=== PATIENT | male | born 1965 | race Caucasian/White ===

== ENCOUNTER 2020-02-22 16:15 | Emergency (ER) | payer MEDICAID, SELFPAY ==
--- NOTE | 2020-02-22 | ECG_ITS ---
Test Reason : CHEST PAIN Blood Pressure : / mmHG Vent. Rate : 079 BPM Atrial Rate : 079 BPM P-R Int : 148 ms QRS Dur : 144 ms QT Int : 438 ms P-R-T Axes : 049 216 036 degrees QTc Int : 502 ms Normal sinus rhythm Possible Left atrial enlargement Right bundle branch block Inferior infarct , age undetermined Abnormal ECG No significant changes seen Referred By: Generic ED Physician Electronically Signed By:ISMAEL KATZ MD
[2020-02-22 16:19] VITALS: BP 104/57; RESP 20; TEMP 36.4; O2SAT 97; BMI 27.6
--- NOTE | 2020-02-22 16:43 | XR_ITS ---
EXAMINATION: XR CHEST CLINICAL INFORMATION: Chest pain COMPARISON: 03/01/2019 TECHNIQUE: Frontal view of the chest was obtained. FINDINGS: No significant abnormality is noted involving the heart, lungs, mediastinum, bony thorax or soft tissues. Again noted are changes of median sternotomy CABG. Degenerative changes present in the spine. XR/XR chest 1V IMPRESSION: No acute intrathoracic disease
--- NOTE | 2020-02-22 16:43 | ED_ITS ---
HPI - Chest Pain General Chief Complaint: Chest Pain Stated Complaint: chest pain Time Seen by Provider: 02/22/20 16:42 Source: patient and sign language interpreter Mode of arrival: ambulatory Limitations: no limitations History of Present Illness HPI narrative: 54 years old male with history of coronary artery disease and quadruple bypass surgery, patient also have stent. Patient presented with chest pain left-sided, described as constant started 5 hours ago, pain is localized to the left side with no radiation, associated with some difficulty breathing, and also associated with lower abdominal pain, no factor relieving the pain or worsening the pain. Related Data Previous Rx's Medication Instructions Recorded polyethylene glycol 3350 [Miralax] 17 g PO DAILY PRN #14 ea 02/22/20 Allergies Allergy/AdvReac Type Severity Reaction Status Date / Time No Known Allergies Allergy Unverified 12/30/19 19:36 [No Known Allergies*] Review of Systems Review of Systems: All other systems are reviewed and are negative Constitutional: Reports as per HPI and Reports no additional constitutional complaints Eyes: Reports as per HPI and Reports no additional eye complaints Reports system reviewed and no additional complaints, except as documented Cardiovascular: Reports as per HPI and Reports no additional cardiovascular complaints Respiratory: Reports as per HPI and Reports no additional respiratory complaints Gastrointestinal: Reports as per HPI and Reports no additional gastrointestinal complaints Genitourinary: Reports no additional female genitourinary complaints Musculoskeletal: Reports no additional musculoskeletal complaints Skin/Breast: Reports system reviewed and no additional complaints, except as docu Psychiatric: Reports no additional psychiatric complaints Endocrine: Reports no additional endocrine complaints Hematologic/Lymphatic: Reports no additional hematologic/lymphatic complaints Allergic/Immunologic: Reports no additional allergic/immunologic complaints Reports system reviewed and no additional complaints, except as documented and Reports Abnormal speech present [facility] Past Medical History Medical History Myocardial infarction Surgical History H/O cardiac catheterization H/O coronary artery bypass surgery Hx of heart artery stent Social History Social History Smoking Status: Never smoker Use of substances other than those prescribed or required for medical reasons: No Advance Directives: No Advance Directives Information Provided: Yes Physical Exam Vital Signs: Vital Signs: Last Vital Signs Temp 98.1 F 02/22/20 16:44 Pulse 82 02/22/20 20:39 Resp 18 02/22/20 20:39 BP 137/92 H 02/22/20 20:39 Pulse Ox 95 02/22/20 20:39 Body Mass Index 27.6 Vital signs have been reviewed as normal and appeared to be correct. Blood pressure normal. Heart rate normal. Respiration rate normal. Temperature normal. Oxygen saturation normal. Appearance: Alert. Oriented X3. No acute distress. Head: Normal external exam. Normocephalic. Atraumatic. No [place] signs noted. No raccoon eyes noted Eyes: PERRLA. EOMI. Conjunctiva and sclera normal. Eyelids normal. ENT: EAC normal. TM's Normal. Pharynx normal. Uvula midline. Moist mucous membranes. No trismus noted. No drooling noted. No muffled voice noted. Neck: Normal inspection. Neck supple. FROM. No adenopathy. Thyroid Normal. No meningeal signs. No neck mass noted. CVS: Normal heart rate and rhythm. Heart sound normal. No murmurs noted. Pulses normal throughout. Respiratory: No respiratory distress. Painless inspiration. Breath sounds normal. No wheezes/rales/rhonchi noted. Chest nontender. No accessory muscle usage noted or decreased air movement noted. Abdomen: Soft and nontender. Bowel sounds normal in all 4 quadrants. No distention noted. No organomegaly noted. No visible injury noted. Back: No CVA tenderness. Full range of motion noted. Skin: Skin warm and dry. Normal skin color. Normal skin turgor. No rashes/lesions/lacerations noted. Extremities: No lower extremity edema. Extremities exhibit normal range of motion. Extremities nontender. Neuro: Oriented X 3. No motor deficit. No sensory deficit. Reflexes normal. Course Course Course Narrative: Chest pain/abdominal pain history of coronary artery disease, hypertension, high cholesterol. Will do abdominal/chest pain protocol and reassessed. MDM - Chest Pain MDM Narrative Medical decision making narrative: Assessment and plan. 54-year-old male presented with 5 hours of chest pain, patient had high sensitive troponin within normal limits, EKG is unremarkable, Abdominal pain likely secondary to constipation patient did not go to the bathroom for the last 2 days. Lab Data Result diagrams: 02/22/20 16:49 02/22/20 16:49 Labs: Lab Results 02/22/20 02/22/20 02/22/20 Range/Units 16:49 16:49 16:49 WBC 7.3 (4.8-10.8) X10*3/uL RBC 4.73 (4.60-5.80) X10*6/uL Hgb 14.6 (14.0-18.0) g/dl Hct 42.8 (42-52) % MCV 90.5 (80-98) fL MCH 30.9 (27.0-33.0) pg MCHC 34.1 (31.0-36.0) g/dl RDW 12.5 (11.0-16.0) % Plt Count 206 (160-400) X10*3/uL MPV 11.3 (9.4-12.4) fL Immature Gran % (Auto) 0.1 (0.0-0.4) % Neut % (Auto) 67.7 (45-73) % Lymph % (Auto) 23.7 (20-40) % [place] % (Auto) 5.2 (2-11) % Eos % (Auto) 2.9 (0-4) % Baso % (Auto) 0.4 (0-2) % Lymph # (Auto) 1.7 (1.2-4.9) X10*3/uL [place] # (Auto) 0.4 (0.1-1.2) X10*3/uL Eos # (Auto) 0.2 (0.0-0.4) X10*3/uL Baso # (Auto) 0.0 (0.0-0.2) X10*3/uL Abs Immat Gran (auto) 0.01 (0.00-0.03) X10*3/uL Absolute Neuts (auto) 4.9 (2.0-8.3) X10*3/uL Absolute Nucleated RBC 0.000 (0.0-0.012) X10*3/uL Nucleated RBC % (auto) 0.0 (0.0-0.2) /100WBC D-Dimer NG/ML Hold Blue Top SEE NOTE Sodium (135-145) mmol/L Potassium (3.3-5.1) mmol/l Chloride (96-108) mmol/L Carbon Dioxide (22-29) mmol/L Anion Gap (12-20) BUN (9-16) mg/dL Creatinine (0.5-1.4) mg/dL Estim Creat Clear Calc Estimated GFR Random Glucose (60-115) mg/dL Calcium (8.4-10.2) mg/dL Total Bilirubin (0.0-1.0) mg/dL Direct Bilirubin (0.0-0.5) mg/dL AST (5-37) U/L ALT (0-40) U/L Alkaline Phosphatase (39-117) U/L Troponin I High Sens 4.9 (<3.5-35.0) ng/L B-Natriuretic Peptide 58 (<100) pg/mL Total Protein (6.5-8.0) g/dL Albumin (3.5-5.0) g/dL Lipase (8-78) U/L 02/22/20 02/22/20 Range/Units 16:49 16:49 WBC (4.8-10.8) X10*3/uL RBC (4.60-5.80) X10*6/uL Hgb (14.0-18.0) g/dl Hct (42-52) % MCV (80-98) fL MCH (27.0-33.0) pg MCHC (31.0-36.0) g/dl RDW (11.0-16.0) % Plt Count (160-400) X10*3/uL MPV (9.4-12.4) fL Immature Gran % (Auto) (0.0-0.4) % Neut % (Auto) (45-73) % Lymph % (Auto) (20-40) % [place] % (Auto) (2-11) % Eos % (Auto) (0-4) % Baso % (Auto) (0-2) % Lymph # (Auto) (1.2-4.9) X10*3/uL [place] # (Auto) (0.1-1.2) X10*3/uL Eos # (Auto) (0.0-0.4) X10*3/uL Baso # (Auto) (0.0-0.2) X10*3/uL Abs Immat Gran (auto) (0.00-0.03) X10*3/uL Absolute Neuts (auto) (2.0-8.3) X10*3/uL Absolute Nucleated RBC (0.0-0.012) X10*3/uL Nucleated RBC % (auto) (0.0-0.2) /100WBC D-Dimer 201 NG/ML Hold Blue Top Sodium 138 (135-145) mmol/L Potassium 4.0 (3.3-5.1) mmol/l Chloride 108 (96-108) mmol/L Carbon Dioxide 20 L (22-29) mmol/L Anion Gap 14 (12-20) BUN 26 H (9-16) mg/dL Creatinine 1.04 (0.5-1.4) mg/dL Estim Creat Clear Calc 85.0 Estimated GFR > 60 Random Glucose 280 H (60-115) mg/dL Calcium 8.6 (8.4-10.2) mg/dL Total Bilirubin 2.1 H (0.0-1.0) mg/dL Direct Bilirubin 0.5 (0.0-0.5) mg/dL AST 27 (5-37) U/L ALT 24 (0-40) U/L Alkaline Phosphatase 100 (39-117) U/L Troponin I High Sens (<3.5-35.0) ng/L B-Natriuretic Peptide (<100) pg/mL Total Protein 6.5 (6.5-8.0) g/dL Albumin 3.9 (3.5-5.0) g/dL Lipase 23 (8-78) U/L Imaging Data CT scan - abdomen: Radiologist's impression: 1. No acute abnormality. The appendix is not visualized. There is no inflammation of the mesentery. Moderate to large-volume of stool in the colon. No acute changes of bowel. 2. There is an 8 x 4 mm stone in the left kidney which is nonobstructive. There is no hydronephrosis of either kidney. Chest x-ray: Radiologist's impression: No acute pathology. ECG Data ECG #1: Interpretation: Normal sinus rhythm at 79 beats per minutes, right bundle branch block, otherwise unremarkable intervals, no ST-T specific changes. Discharge Plan Discharge Clinical Impression: Chest pain Qualifiers: Chest pain type: other chest pain Qualified Code(s): R07.89 - Other chest pain Constipation Qualifiers: Constipation type: unspecified constipation type Qualified Code(s): K59.00 - Constipation, unspecified Patient Disposition: Home, Self-Care Instructions: Chest Pain (ED), Constipation (ED) Prescriptions: New polyethylene glycol 3350 [Miralax] 17 gram powder in packet 17 g PO DAILY PRN (Reason: constipation) Qty: 14 RF: 0 Referrals: Katherine / Farrah MCCORMICK MD [Primary Care Provider] - 2 days Todd Izquierdo MD [Physician] - 1 week
[2020-02-22 16:44] VITALS: BP 98/55; PULSE 81; RESP 17; TEMP 36.7; O2SAT 95
[2020-02-22 16:56] LABS: MANUAL DIFF FLAG NO
[2020-02-22 16:58] LABS: Basophils Percent Auto 0.4 % (0-2); Eosinophils Absolute Auto 0.2 X10*3/uL (0.0-0.4); Eosinophils Percent Auto 2.9 % (0-4); Hematocrit 42.8 % (42-52); Hemoglobin 14.6 g/dl (14.0-18.0); Imm Gran Abs Auto 0.01 X10*3/uL (0.00-0.03); Imm Gran Pct Auto 0.1 % (0.0-0.4); Lymphocytes Absolute Auto 1.7 X10*3/uL (1.2-4.9); Lymphocytes Percent Auto 23.7 % (20-40); Mean Corpuscular HGB Conc 34.1 g/dl (31.0-36.0); Mean Corpuscular Hemoglobin 30.9 pg (27.0-33.0); Mean Corpuscular Volume 90.5 fL (80-98); Mean Platelet Volume 11.3 fL (9.4-12.4); Monocytes Absolute Auto 0.4 X10*3/uL (0.1-1.2); Monocytes Percent Auto 5.2 % (2-11); Neutrophils Absolute Auto 4.9 X10*3/uL (2.0-8.3); Neutrophils Percent Auto 67.7 % (45-73); Platelet Count 206 X10*3/uL (160-400); Red Blood Count 4.73 X10*6/uL (4.60-5.80); Red Cell Distribution Width 12.5 % (11.0-16.0); White Blood Count 7.3 X10*3/uL (4.8-10.8)
[2020-02-22 17:20] LABS: D Dimer 201 NG/ML
[2020-02-22 17:36] LABS: Troponin-I High Sensitivity 4.9 ng/L (<3.5-35.0)
--- NOTE | 2020-02-22 17:37 | CT_ITS ---
EXAMINATION: CT ABDOMEN AND PELVIS WITHOUT CONTRAST CLINICAL INFORMATION: Lower abdominal pain. COMPARISON: CT abdomen pelvis 09/29/2019 TECHNIQUE: Multidetector volumetric imaging was performed from the superior aspect of the liver through the pubic symphysis. Sagittal and coronal reformatted images were obtained on the technologist's workstation. This CT examination was performed using dose optimization techniques as appropriate, variously including the following: *Automated exposure control *Adjustment of mA and/or kV according to patient size (this includes techniques or standardized protocols for targeted exams where dose is matched to indication/reason for exam; i.e. extremities or head) *Use of iterative reconstruction technique DLP: 491 mGy-cm FINDINGS: LUNG BASES: Status post median sternotomy. Heart size is enlarged. Lungs are clear. There is no pleural effusion. LIVER, GALLBLADDER, AND BILIARY TREE: The liver is normal in size, shape, and attenuation. No focal hepatic lesion or biliary ductal dilatation is present. The gallbladder is unremarkable with no evidence of radiopaque gallstones, gallbladder wall thickening, or obvious pericholecystic inflammatory changes. PANCREAS: Unremarkable. SPLEEN: Unremarkable. ADRENAL GLANDS: Unremarkable. KIDNEYS AND URETERS: Nonobstructive 8 x 4 mm stone lower pole left kidney. There is no hydronephrosis. No ureteral calculi. BLADDER: Unremarkable. GASTROINTESTINAL TRACT: There are scattered diverticula of the colon. There is no diverticulitis. There is no bowel wall thickening /edema. There is no bowel obstruction. There is a moderate to large volume of stool in the colon. The appendix is nonvisualized . The small bowel loops are unremarkable. The stomach is normal. There is no hiatal hernia. MESENTERY: No inflammation. No free air or free fluid. ABDOMINAL WALL: No significant hernia is appreciated. LYMPH NODES: Normal. VASCULAR: Unremarkable. PELVIC VISCERA: Unremarkable. OSSEOUS STRUCTURES: Unremarkable. CT/CT abdomen pelvis wo con IMPRESSION: 1. No acute abnormality. The appendix is not visualized. There is no inflammation of the mesentery. Moderate to large-volume of stool in the colon. No acute changes of bowel. 2. There is an 8 x 4 mm stone in the left kidney which is nonobstructive. There is no hydronephrosis of either kidney.
[2020-02-22 17:38] LABS: Alanine Aminotransferase 24 U/L (0-40); Albumin Level 3.9 g/dL (3.5-5.0); Alkaline Phosphatase 100 U/L (39-117); Anion Gap 14 (12-20); Aspartate Amino Transferase 27 U/L (5-37); Bilirubin Direct 0.5 mg/dL (0.0-0.5); Bilirubin Total 2.1 mg/dL (0.0-1.0); Blood Urea Nitrogen 26 mg/dL (9-16); Calcium 8.6 mg/dL (8.4-10.2); Carbon Dioxide 20 mmol/L (22-29); Chloride 108 mmol/L (96-108); Estimated Glomerular Filt Rate > 60; Glucose Random 280 mg/dL (60-115); Lipase 23 U/L (8-78); Sodium 138 mmol/L (135-145); Total Protein 6.5 g/dL (6.5-8.0)
[2020-02-22 18:00] VITALS: BP 109/64
[2020-02-22] MEDS: Morphine Sulfate 2 MG/ML CARTRIDGE 1 MG IVPUSH (18:06)
[2020-02-22] MEDS: Milk of Magnesia 30 ML ORAL.SUSP PO (18:07)
[2020-02-22 18:10] VITALS: PULSE 70; RESP 17
--- NOTE | 2020-02-22 18:13 | PC.NURSE ---
medicated for pain, skin wpd, watching tv, abd/epigastric/chest pain
[2020-02-22 19:30] LABS: B Type Natriuretic Peptide 58 pg/mL (<100)
[2020-02-22 20:39] VITALS: BP 137/92; PULSE 82; RESP 18; O2SAT 95
== END 2020-02-22 21:22 | disposition home or self-care (01) ==
PROVIDERS: Emergency Provider Emergency Medicine; PCP Family Medicine
DX: K59.00 Constipation, unspecified (principal); R07.9 Chest pain, unspecified; I25.10 Atherosclerotic heart disease of native coronary artery without angina pectoris; Z79.899 Other long term (current) drug therapy
CPT/HCPCS: 36415; 71045; 74176; 80048; 80076; 83690; 83880; 84484; 85025; 85379; 93005; 96374; 99284; J2270

== ENCOUNTER 2020-02-28 05:00 | Emergency (ER) | payer MEDICAID, SELFPAY ==
[2020-02-28 05:03] VITALS: BP 127/87; PULSE 67; RESP 18; TEMP 36.7; O2SAT 98; BMI 26.7
--- NOTE | 2020-02-28 05:19 | ED.ABDPAIN ---
HPI - Abdominal Pain General Chief Complaint: Abdominal Pain Stated Complaint: lower abd pain Time Seen by Provider: 02/28/20 05:18 Source: patient and translator/interpreter Mode of arrival: ambulatory Limitations: no limitations History of Present Illness HPI narrative: This is a 54-year-old male who presents with persistent constipation but has not been consistently taking regimen that he was previously provided. Again he comes in with lower abdominal discomfort but denies any urinary pain / burning / frequency, nausea, vomiting. Related Data Previous Rx's Medication Instructions Recorded polyethylene glycol 3350 [Miralax] 17 g PO DAILY PRN #14 ea 02/22/20 magnesium citrate 300 ml PO DAILY PRN #296 ml 02/28/20 polyethylene glycol 3350 [Miralax] 17 g PO BID #30 ea 02/28/20 sodium phosphates [Fleet Enema] 118 ml UT DAILY PRN #532 ml 02/28/20 Allergies Allergy/AdvReac Type Severity Reaction Status Date / Time No Known Allergies Allergy Verified 02/28/20 05:27 [No Known Allergies*] Review of Systems Review of Systems Pertinent positives and negatives as stated in HPI and 10 point review of systems is otherwise negative. Physical Exam Vital Signs: Vital Signs: Last Vital Signs Temp 98.1 F 02/28/20 05:03 Pulse 67 02/28/20 05:03 Resp 18 02/28/20 05:03 BP 127/87 02/28/20 05:03 Pulse Ox 98 02/28/20 05:03 Body Mass Index 26.7 VITAL SIGNS: Reviewed. GENERAL: Well developed, well nourished, in no acute distress. HEAD: Normocephalic/atraumatic, EYES: PERRLA, EOMI intact without pain, no nystagmus/pallor/icterus noted EARS: Ext canals without abnormality, TMs non-bulging and non-erythematous NOSE: Nares patent bilateral OROPHARYNX: no oral lesions noted, posterior pharynx clear and non-erythematous without noted tonsillar enlargement/erythema/exudates NECK: Supple, no adenopathy LUNGS: Normal breath sounds. No adventitious sounds or accessory muscle use. SpO2<98> CARDIOVASCULAR: Regular rate and rhythm without noted murmurs, no JVD or lower extremity edema. ABDOMEN: Soft, non-tender, non-distended with bowel sounds. No rigidity. No guarding. No palpable masses or hernias noted MUSCULOSKELETAL: No tenderness, deformities, or effusions noted on gross inspection. EXTREMITIES: No cyanosis, clubbing or edema. SKIN: Inspection of the skin reveals no rashes, ulcerations, jaundice, pallor, or petechiae. NEUROLOGIC: Alert and oriented x 4. Strength and sensation to light touch were grossly intact x 4. Course Course Course Narrative: This is a 54-year-old male with history and clinical presentation consistent with constipation. Review of all investigations is negative for any acute findings to suggest infection, anemia, electrolyte abnormalities, renal or liver dysfunction. In addition, there is no evidence to suggest that patient is in DKA or HHS. A complete regimen was discussed with the patient at bedside with a hourly sign language interpreter and he was discharged home in stable condition. MDM - Abdominal Pain Lab Data Result diagrams: 02/28/20 05:18 02/28/20 05:18 Labs: Lab Results 02/28/20 02/28/20 02/28/20 Range/Units 05:18 05:18 05:18 WBC 6.0 (4.8-10.8) X10*3/uL RBC 4.93 (4.60-5.80) X10*6/uL Hgb 15.3 (14.0-18.0) g/dl Hct 45.4 (42-52) % MCV 92.1 (80-98) fL MCH 31.0 (27.0-33.0) pg MCHC 33.7 (31.0-36.0) g/dl RDW 12.6 (11.0-16.0) % Plt Count 192 (160-400) X10*3/uL MPV 11.2 (9.4-12.4) fL Immature Gran % (Auto) 0.3 (0.0-0.4) % Neut % (Auto) 54.8 (45-73) % Lymph % (Auto) 31.5 (20-40) % [place] % (Auto) 9.0 (2-11) % Eos % (Auto) 3.9 (0-4) % Baso % (Auto) 0.5 (0-2) % Lymph # (Auto) 1.9 (1.2-4.9) X10*3/uL [place] # (Auto) 0.5 (0.1-1.2) X10*3/uL Eos # (Auto) 0.2 (0.0-0.4) X10*3/uL Baso # (Auto) 0.0 (0.0-0.2) X10*3/uL Abs Immat Gran (auto) 0.02 (0.00-0.03) X10*3/uL Absolute Neuts (auto) 3.3 (2.0-8.3) X10*3/uL Absolute Nucleated RBC 0.000 (0.0-0.012) X10*3/uL Nucleated RBC % (auto) 0.0 (0.0-0.2) /100WBC Hold Blue Top SEE NOTE Sodium 142 (135-145) mmol/L Potassium 4.3 (3.3-5.1) mmol/l Chloride 107 (96-108) mmol/L Carbon Dioxide 26 (22-29) mmol/L Anion Gap 13 (12-20) BUN 16 (9-16) mg/dL Creatinine 0.92 (0.5-1.4) mg/dL Estim Creat Clear Calc 88.8 Estimated GFR > 60 Random Glucose 258 H (60-115) mg/dL Calcium 8.8 (8.4-10.2) mg/dL Total Bilirubin 1.9 H (0.0-1.0) mg/dL AST 22 (5-37) U/L ALT 26 (0-40) U/L Alkaline Phosphatase 119 H (39-117) U/L Total Protein 6.5 (6.5-8.0) g/dL Albumin 4.1 (3.5-5.0) g/dL Urine Color Urine Appearance Urine pH (5.0-8.0) Ur Specific [place] (1.005-1.025) Urine Protein (NEG-TRACE) MG/DL Urine Glucose (UA) (NEG) MG/DL Urine Ketones (NEG) MG/DL Urine Blood (NEG) Urine Nitrite (NEG) Ur Leukocyte Esterase (NEG) Urine RBC (0) /HPF Urine WBC (0-4) /HPF Ur Squamous Epith Cells /LPF Urine Bacteria /LPF 02/28/20 Range/Units 05:18 WBC (4.8-10.8) X10*3/uL RBC (4.60-5.80) X10*6/uL Hgb (14.0-18.0) g/dl Hct (42-52) % MCV (80-98) fL MCH (27.0-33.0) pg MCHC (31.0-36.0) g/dl RDW (11.0-16.0) % Plt Count (160-400) X10*3/uL MPV (9.4-12.4) fL Immature Gran % (Auto) (0.0-0.4) % Neut % (Auto) (45-73) % Lymph % (Auto) (20-40) % [place] % (Auto) (2-11) % Eos % (Auto) (0-4) % Baso % (Auto) (0-2) % Lymph # (Auto) (1.2-4.9) X10*3/uL [place] # (Auto) (0.1-1.2) X10*3/uL Eos # (Auto) (0.0-0.4) X10*3/uL Baso # (Auto) (0.0-0.2) X10*3/uL Abs Immat Gran (auto) (0.00-0.03) X10*3/uL Absolute Neuts (auto) (2.0-8.3) X10*3/uL Absolute Nucleated RBC (0.0-0.012) X10*3/uL Nucleated RBC % (auto) (0.0-0.2) /100WBC Hold Blue Top Sodium (135-145) mmol/L Potassium (3.3-5.1) mmol/l Chloride (96-108) mmol/L Carbon Dioxide (22-29) mmol/L Anion Gap (12-20) BUN (9-16) mg/dL Creatinine (0.5-1.4) mg/dL Estim Creat Clear Calc Estimated GFR Random Glucose (60-115) mg/dL Calcium (8.4-10.2) mg/dL Total Bilirubin (0.0-1.0) mg/dL AST (5-37) U/L ALT (0-40) U/L Alkaline Phosphatase (39-117) U/L Total Protein (6.5-8.0) g/dL Albumin (3.5-5.0) g/dL Urine Color YELLOW Urine Appearance CLEAR Urine pH 5.5 (5.0-8.0) Ur Specific [place] >= 1.030 H (1.005-1.025) Urine Protein NEG (NEG-TRACE) MG/DL Urine Glucose (UA) >=1000 H (NEG) MG/DL Urine Ketones NEG (NEG) MG/DL Urine Blood NEG (NEG) Urine Nitrite NEG (NEG) Ur Leukocyte Esterase NEG (NEG) Urine RBC 0-2 (0) /HPF Urine WBC 1-4 (0-4) /HPF Ur Squamous Epith Cells 2+ /LPF Urine Bacteria NONE /LPF Discharge Plan Discharge Clinical Impression: Constipation Qualifiers: Constipation type: unspecified constipation type Qualified Code(s): K59.00 - Constipation, unspecified Patient Disposition: Home, Self-Care Instructions: Constipation (ED), High Fiber Diet (ED), Fleet Enema (ED) Additional Instructions: 1. Aumente la hidrataci?n de l?quidos espec?ficamente con agua. 2. Llame al consultorio de campuzano proveedor de atenci?n primaria esta ma?berto para programar myles kike de seguimiento para campuzano estre?imiento persistente. El paciente y / o la padmini reconocen que comprenden los resultados (seg?n corresponda), el diagn?stico, el plan de tratamiento, la necesidad de seguimiento y los s?ntomas que deber?an impulsar el regreso a la abida de emergencias. Prescriptions: New polyethylene glycol 3350 [Miralax] 17 gram powder in packet 17 g PO BID Qty: 30 RF: 0 magnesium citrate Solution 300 ml PO DAILY PRN (Reason: constipation) Qty: 296 RF: 0 Fleet Enema 19-7 gram/118 mL enema 118 ml UT DAILY PRN (Reason: constipation) Qty: 532 RF: 0 No Action polyethylene glycol 3350 [Miralax] 17 gram powder in packet 17 g PO DAILY PRN (Reason: constipation) Qty: 14 RF: 0 Referrals: Physician,Unknown [Primary Care Provider] - 2 days (Constipation) Interventions: ED Discharge Assessment Last Done: 02/28/20 07:04 Discharge Date/Time: 02/28/20 07:06 Print Language: Filipino [facility] Past Medical History Source: nursing notes reviewed Medical History Myocardial infarction Surgical History H/O cardiac catheterization H/O coronary artery bypass surgery Hx of heart artery stent Social History Social History Smoking Status: Never smoker Advance Directives: No Advance Directives Information Provided: No
[2020-02-28 05:24] LABS: Basophils Percent Auto 0.5 % (0-2); Eosinophils Absolute Auto 0.2 X10*3/uL (0.0-0.4); Eosinophils Percent Auto 3.9 % (0-4); Hematocrit 45.4 % (42-52); Hemoglobin 15.3 g/dl (14.0-18.0); Imm Gran Abs Auto 0.02 X10*3/uL (0.00-0.03); Imm Gran Pct Auto 0.3 % (0.0-0.4); Lymphocytes Absolute Auto 1.9 X10*3/uL (1.2-4.9); Lymphocytes Percent Auto 31.5 % (20-40); MANUAL DIFF FLAG NO; Mean Corpuscular HGB Conc 33.7 g/dl (31.0-36.0); Mean Corpuscular Volume 92.1 fL (80-98); Mean Platelet Volume 11.2 fL (9.4-12.4); Monocytes Absolute Auto 0.5 X10*3/uL (0.1-1.2); Neutrophils Absolute Auto 3.3 X10*3/uL (2.0-8.3); Neutrophils Percent Auto 54.8 % (45-73); Platelet Count 192 X10*3/uL (160-400); Red Blood Count 4.93 X10*6/uL (4.60-5.80); Red Cell Distribution Width 12.6 % (11.0-16.0)
--- NOTE | 2020-02-28 05:28 | XR_ITS ---
EXAMINATION: ABDOMEN 1 VIEW CLINICAL INFORMATION: Abdominal discomfort. COMPARISON: 02/22/2020. TECHNIQUE: A supine view of the abdomen is provided. FINDINGS: There are no dilated loops of small bowel. There are no air-fluid levels. There is a stable 6 mm calcification within the lower pole of the left kidney. The visualized lung bases are clear. The osseous structures are stable. XR/XR KUB IMPRESSION: Unremarkable bowel gas pattern. Stable 6 mm left lower pole renal calculus.
[2020-02-28 05:32] LABS: Glucose Urine UA >=1000 MG/DL (NEG); Leukocyte Esterase Urine NEG (NEG); Nitrite Urine NEG (NEG); PH 5.5 (5.0-8.0); Specific Gravity - Urine >= 1.030 (1.005-1.025); Urine Blood NEG (NEG); Urine Ketones NEG (NEG); Urine Protein NEG (NEG-TRACE)
[2020-02-28 05:33] LABS: Appearance Urine CLEAR; Color Urine YELLOW
[2020-02-28 05:40] LABS: RBC Urine 0-2 /HPF (0); Squamous Epithelial Cell Urine 2+ /LPF
[2020-02-28 06:02] LABS: Alanine Aminotransferase 26 U/L (0-40); Albumin Level 4.1 g/dL (3.5-5.0); Alkaline Phosphatase 119 U/L (39-117); Anion Gap 13 (12-20); Aspartate Amino Transferase 22 U/L (5-37); Bilirubin Total 1.9 mg/dL (0.0-1.0); Blood Urea Nitrogen 16 mg/dL (9-16); Calcium 8.8 mg/dL (8.4-10.2); Carbon Dioxide 26 mmol/L (22-29); Chloride 107 mmol/L (96-108); Creatinine Clr Calc Pharmacy 88.8; Estimated Glomerular Filt Rate > 60; Glucose Random 258 mg/dL (60-115); Potassium 4.3 mmol/l (3.3-5.1); Sodium 142 mmol/L (135-145); Total Protein 6.5 g/dL (6.5-8.0)
--- NOTE | 2020-02-28 06:27 | PC.NURSE ---
PROVIDER AND INTERPRETOR AT BEDSIDE FOR 15 MINUTES EXPLAINING TO PATIENT ABOUT CHANGING/IMPROVING HIS DIET, HYDRATE WELL AND CONTINUE TO TAKE MIRALAX DAILY. PROVIDER SUGGESTED THAT PT CONTACT HIS PCP. PT WILL GO HOME WITH SUPPOSITORY AND ENEMA.
== END 2020-02-28 07:06 | disposition home or self-care (01) ==
PROVIDERS: Emergency Provider Student in an Organized Health Care Education/Training Program
DX: K59.00 Constipation, unspecified (principal); R10.30 Lower abdominal pain, unspecified; Z79.899 Other long term (current) drug therapy
CPT/HCPCS: 36415; 74018; 80053; 81001; 85025; 99283

== ENCOUNTER 2020-03-20 13:53 | Emergency (ER) | payer MEDICAID, SELFPAY ==
--- NOTE | 2020-03-20 | ECG_ITS ---
Test Reason : CP Blood Pressure : / mmHG Vent. Rate : 083 BPM Atrial Rate : 083 BPM P-R Int : 152 ms QRS Dur : 144 ms QT Int : 422 ms P-R-T Axes : 053 230 031 degrees QTc Int : 495 ms Normal sinus rhythm Right bundle branch block Abnormal ECG When compared with ECG of 22-FEB-2020 16:27, No significant change was found Referred By: Generic ED Physician Electronically Signed By:STEPHANIE OLIVO
[2020-03-20 14:19] VITALS: BP 118/67; PULSE 81; RESP 24; TEMP 36.1; O2SAT 98; BMI 27.9
== END 2020-03-20 15:48 | disposition left against medical advice (07) ==
PROVIDERS: Emergency Provider Emergency Medicine; PCP Family Medicine
DX: R07.9 Chest pain, unspecified (principal); I25.2 Old myocardial infarction
CPT/HCPCS: 93005; 99282; 99283

== ENCOUNTER 2020-03-23 13:10 | Emergency (ER) | payer MEDICAID, SELFPAY ==
--- NOTE | 2020-03-23 14:39 | CT_ITS ---
EXAMINATION: CT ABDOMEN AND PELVIS WITHOUT CONTRAST CLINICAL INFORMATION: Left flank pain. COMPARISON: 02/22/2020 TECHNIQUE: Multidetector volumetric imaging was performed from the superior aspect of the liver through the pubic symphysis. Sagittal and coronal reformatted images were obtained on the technologist's workstation. This CT examination was performed using dose optimization techniques as appropriate, variously including the following: *Automated exposure control *Adjustment of mA and/or kV according to patient size (this includes techniques or standardized protocols for targeted exams where dose is matched to indication/reason for exam; i.e. extremities or head) *Use of iterative reconstruction technique DLP: 517 mGy-cm FINDINGS: LUNG BASES: No acute findings compared to 02/22/2020 No pulmonary consolidation or pleural effusion at either lung base. Prior coronary artery bypass graft surgery. LIVER: The liver has normal size, shape, and attenuation. No focal liver lesion. GALLBLADDER AND BILIARY TREE: No radiopaque gallstones, wall thickening or pericholecystic fluid. No intrahepatic or extrahepatic bile duct dilatation. PANCREAS: Normal. No evidence of pancreatic ductal dilatation or mass. SPLEEN: Normal. ADRENAL GLANDS: Normal. KIDNEYS AND URETERS: Kidneys are normal in size. No evidence of renal mass on these noncontrast images. A stone in the lower pole of the left kidney measures up to 0.7 cm maximum dimension. It is unchanged in size and position compared to 02/22/2020. No evidence of ureterolithiasis or hydroureteronephrosis. BOWEL AND PERITONEUM: Stomach is unremarkable. No dilated loops of bowel. The appendix is not identified. No inflammatory changes in the right lower quadrant. No overt bowel wall thickening or mesenteric fat stranding. No ascites or pneumoperitoneum. ABDOMINAL WALL: Unremarkable. VASCULATURE: Mild atherosclerosis of the abdominal aorta without aneurysm. LYMPH NODES: No pathologic sized lymph nodes in the abdomen or pelvis. No inguinal lymphadenopathy. BLADDER AND PELVIC VISCERA: The urinary bladder has a normal appearance. Prostate gland is unremarkable. No pelvic free fluid. SKELETAL: No acute findings in the mildly degenerated spine. CT/CT abdomen pelvis wo con IMPRESSION: * No acute pathology in the abdomen or pelvis compared to 02/22/2020. * Again noted is a stone in the lower pole of the left kidney. No hydroureteronephrosis.
--- NOTE | 2020-03-23 14:40 | ED.MALEGU ---
HPI - Male Genitourinary General Chief complaint: Urogenital-Male Stated complaint: uro-genital problems Time Seen by Provider: 03/23/20 14:30 Source: patient and old records reviewed Mode of arrival: ambulatory Limitations: no limitations History of Present Illness Complaint: testicle pain and other (dysuria, flank pain, suprapubic pain) Onset (ago): week(s) (2) Duration: constant Location: right testicle, left testicle, left flank and abdomen Severity: moderate Quality: burning and sharp Relieving factors: none Exacerbating factors: urination and movement Context: new medication Associated symptoms: Reports denies other symptoms Related Data Previous Rx's Medication Instructions Recorded polyethylene glycol 3350 [Miralax] 17 g PO DAILY PRN #14 ea 02/22/20 magnesium citrate 300 ml PO DAILY PRN #296 ml 02/28/20 polyethylene glycol 3350 [Miralax] 17 g PO BID #30 ea 02/28/20 sodium phosphates [Fleet Enema] 118 ml PA DAILY PRN #532 ml 02/28/20 Allergies Allergy/AdvReac Type Severity Reaction Status Date / Time No Known Allergies Allergy Verified 02/28/20 05:27 [No Known Allergies*] Review of Systems Review of Systems: Constitutional : No Fever, No Chills ENT/Mouth : No sore throat Eyes: No Eye Pain, No Swelling, No Redness Cardiovascular : No Chest Pain, No SOB Respiratory : No Cough, No Sputum, No Wheezing Gastrointestinal : positive Nausea, no Vomiting, No Diarrhea, pos abdominal pain Genitourinary : positive Dysuria, positive urinary frequency, no Hematuria, positive Flank Pain, positive hesitancy Musculoskeletal : No joint pain, No Myalgias Skin : No Skin Lesions, No rash Neuro : No Weakness, No Numbness, No Headache Psych : No Anxiety/Panic, No Depression Heme/Lymph: No Bruising, No Lymphadenopathy Endocrine : No Polyuria, No Polydipsia All other systems reviewed and are negative PMFSH Past Medical History Attestation statement: The following information was validated with the patient. Medical History (Updated 03/23/20 @ 16:17 by Aminata Houser DO) Myocardial infarction Surgical History (Updated 03/23/20 @ 15:06 by Ioana Ardon) H/O cardiac catheterization H/O coronary artery bypass surgery History of appendectomy Hx of heart artery stent Social History Social History Alcohol intake: never Smoking Status: Never smoker Smoked in Last 30 Days: No Use of substances other than those prescribed or required for medical reasons: No Advance Directives: No Advance Directives Information Provided: Yes Physical Exam Vital Signs: Vital Signs: Last Vital Signs Temp 98.1 F 03/23/20 15:03 Pulse 72 03/23/20 15:03 Resp 18 03/23/20 15:03 BP 109/74 03/23/20 15:03 Pulse Ox 95 03/23/20 15:03 Body Mass Index 25.1 Appearance: Alert. Oriented X3. No acute distress. Eyes: Pupils equal, round and reactive to light. ENT: Pharynx normal. Neck: Normal inspection. Neck supple. CVS: Normal heart rate and rhythm. Pulses normal. Respiratory: No respiratory distress. Breath sounds normal. Abdomen: Soft and mild suprapubic tenderness no rebound or guarding. : ttp along both spermatic cord but no swelling/erythema/mass noted Skin: Skin warm and dry. Normal skin color. Normal skin turgor. Extremities: No lower extremity edema. No calf ttp Neuro: Oriented X 3. No motor deficit. No sensory deficit. Course Course Course Narrative: signed out to Dr. Guerrero pending UA, US MDM - Male Genitourinary MDM Narrative Medical decision making narrative: 55 yo male with flank pain suprapubic pain dysuria and scrotal pain without swelling/skin changes - will obtain labs, UA, PO pain control, start with US of scrotum for epididymitis had L renal 8 x 4 mm stone on 02/21 Lab Data Labs: Lab Results 03/23/20 Range/Units 15:18 Urine Color YELLOW Urine Appearance CLEAR Urine pH 6.0 (5.0-8.0) Ur Specific [place] 1.015 (1.005-1.025) Urine Protein NEG (NEG-TRACE) MG/DL Urine Glucose (UA) >=1000 H (NEG) MG/DL Urine Ketones NEG (NEG) MG/DL Urine Blood NEG (NEG) Urine Nitrite NEG (NEG) Ur Leukocyte Esterase NEG (NEG) Urine RBC 0 (0) /HPF Urine WBC 0 (0-4) /HPF Ur Squamous Epith Cells TRACE /LPF Urine Bacteria TRACE /LPF Discharge Plan Discharge Clinical Impression: Abdominal pain, suprapubic Instructions: Abdominal Pain (ED) Additional Instructions: return to ED for any worsening symptoms or concerns Prescriptions: No Action polyethylene glycol 3350 [Miralax] 17 gram powder in packet 17 g PO DAILY PRN (Reason: constipation) Qty: 14 RF: 0 polyethylene glycol 3350 [Miralax] 17 gram powder in packet 17 g PO BID Qty: 30 RF: 0 magnesium citrate Solution 300 ml PO DAILY PRN (Reason: constipation) Qty: 296 RF: 0 Fleet Enema 19-7 gram/118 mL enema 118 ml PA DAILY PRN (Reason: constipation) Qty: 532 RF: 0 Referrals: Katherine / Farrah MCCORMICK MD [Primary Care Provider] - 2 days (if not better)
[2020-03-23 15:03] VITALS: BP 109/74; PULSE 72; RESP 18; TEMP 36.7; O2SAT 95; BMI 25.1
--- NOTE | 2020-03-23 15:06 | US_ITS ---
EXAMINATION: US SCROTUM CLINICAL INFORMATION: Bilateral scrotal pain. COMPARISON: Scrotal ultrasound 05/24/2019 TECHNIQUE: A sonogram of the scrotum was performed assessing avila-scale appearance and color Doppler flow. Spectral Doppler analysis of the arterial and venous flow were performed in the testes bilaterally. FINDINGS: RIGHT: Right testicle measures 4.8 x 2.6 x 3.2 cm, volume 21.6 mL. No focal testicular parenchymal lesions are visualized. Spectral Doppler analysis of the arterial and venous flow is normal in the right testis. Right epididymal head is normal in size. A small 6 x 5 x 7 mm cyst is noted in the head of the right epididymis. No right hydrocele is seen. A moderate-sized varicocele is present. Right epididymal Doppler flow is normal. LEFT: Left testicle measures 4.8 x 2.2 x 3.3 cm, volume 18.6 mL. No focal testicular parenchymal lesions are visualized. Spectral Doppler analysis of the arterial and venous flow is normal in the left testis. Left epididymal head is normal in size. No left hydrocele is seen. A moderate left-sided varicocele is present. Left epididymal Doppler flow is normal. US/US scrotum IMPRESSION: 1. Normal-appearing testes. 2. Bilateral varicoceles 3. Small cyst head of right epididymis
[2020-03-23] MEDS: oxyCODONE HCl Immed Release 5 MG TABLET 10 MG PO (15:13)
--- NOTE | 2020-03-23 15:14 | PC.NURSE ---
PT MEDICAED FOR PAIN PER ORDER
[2020-03-23 15:25] LABS: Appearance Urine CLEAR; Color Urine YELLOW; Glucose Urine UA >=1000 MG/DL (NEG); Leukocyte Esterase Urine NEG (NEG); Nitrite Urine NEG (NEG); Specific Gravity - Urine 1.015 (1.005-1.025); Urine Blood NEG (NEG); Urine Ketones NEG (NEG); Urine Protein NEG (NEG-TRACE)
[2020-03-23 15:35] LABS: Bacteria Urine TRACE /LPF; RBC Urine 0 /HPF (0); Squamous Epithelial Cell Urine TRACE /LPF; WBC Urine 0 /HPF (0-4)
--- NOTE | 2020-03-23 16:06 | PC.NURSE ---
pt transported to ultrasound
--- NOTE | 2020-03-23 16:37 | PC.NURSE ---
PT JUST RETURNED FROM US, WILL OBTAIN LABS
[2020-03-23 16:42] VITALS: BP 114/65; PULSE 62; RESP 17; TEMP 36.7; O2SAT 97
[2020-03-23 16:52] LABS: MANUAL DIFF FLAG NO
[2020-03-23 16:58] LABS: Basophils Percent Auto 0.5 % (0-2); Eosinophils Absolute Auto 0.2 X10*3/uL (0.0-0.4); Eosinophils Percent Auto 2.8 % (0-4); Hematocrit 43.2 % (42-52); Hemoglobin 14.9 g/dl (14.0-18.0); Imm Gran Abs Auto 0.04 X10*3/uL (0.00-0.03); Imm Gran Pct Auto 0.5 % (0.0-0.4); Lymphocytes Absolute Auto 1.8 X10*3/uL (1.2-4.9); Lymphocytes Percent Auto 23.6 % (20-40); Mean Corpuscular HGB Conc 34.5 g/dl (31.0-36.0); Mean Corpuscular Hemoglobin 30.8 pg (27.0-33.0); Mean Corpuscular Volume 89.4 fL (80-98); Mean Platelet Volume 11.3 fL (9.4-12.4); Monocytes Absolute Auto 0.5 X10*3/uL (0.1-1.2); Monocytes Percent Auto 6.9 % (2-11); Neutrophils Percent Auto 65.7 % (45-73); Platelet Count 178 X10*3/uL (160-400); Red Blood Count 4.83 X10*6/uL (4.60-5.80); Red Cell Distribution Width 12.5 % (11.0-16.0); White Blood Count 7.6 X10*3/uL (4.8-10.8)
[2020-03-23 17:31] LABS: Alanine Aminotransferase 28 U/L (0-40); Alkaline Phosphatase 143 U/L (39-117); Anion Gap 12 (12-20); Aspartate Amino Transferase 16 U/L (5-37); Bilirubin Direct 0.7 mg/dL (0.0-0.5); Bilirubin Total 1.9 mg/dL (0.0-1.0); Blood Urea Nitrogen 16 mg/dL (9-16); Calcium 8.2 mg/dL (8.4-10.2); Carbon Dioxide 27 mmol/L (22-29); Chloride 103 mmol/L (96-108); Estimated Glomerular Filt Rate > 60; Potassium 3.9 mmol/l (3.3-5.1); Sodium 138 mmol/L (135-145); Total Protein 6.2 g/dL (6.5-8.0)
[2020-03-23 17:38] LABS: Glucose Random 441 mg/dL (60-115); Lipase 101 U/L (8-78)
[2020-03-23 17:44] LABS: Glucose, Whole Blood 322 mg/dL (60-115)
[2020-03-23 17:45] VITALS: BP 119/83; PULSE 68; RESP 16; TEMP 36.4; O2SAT 99
== END 2020-03-23 18:08 | disposition home or self-care (01) ==
PROVIDERS: Emergency Medicine; Emergency Provider Internal Medicine; PCP Family Medicine
DX: R10.30 Lower abdominal pain, unspecified (principal)
CPT/HCPCS: 36415; 74176; 76870; 80048; 80076; 81001; 82947; 83690; 83735; 85025; 99284

== ENCOUNTER → 2020-04-11 08:25 | Outpatient (BNVA) | payer MEDICAID, SELFPAY | PROVIDERS: PCP Family Medicine; Visit Provider Nurse Practitioner Gerontology | DX: Z76.89 Persons encountering health services in other specified circumstances (principal) ==

== ENCOUNTER 2020-04-25 06:15 | Emergency (ER) | payer MEDICAID, SELFPAY ==
[2020-04-25 07:45] VITALS: BP 136/82; PULSE 66; RESP 17; TEMP 36.5; O2SAT 96; BMI 27.9
--- NOTE | 2020-04-25 08:09 | CT_ITS ---
EXAMINATION: CT ABDOMEN AND PELVIS WITH CONTRAST CLINICAL INFORMATION: Lower abdominal pain radiating to the flanks and testicles. Appendectomy. COMPARISON: Most recent CT abdomen/pelvis dated 03/23/2020 TECHNIQUE: Multidetector volumetric images were obtained from the superior aspect of the liver through the pubic symphysis following administration 85 mL of Omnipaque 350 intravenous contrast. Sagittal and coronal reformatted images were obtained on the technologist's workstation. Oral contrast: No. This CT examination was performed using dose optimization techniques as appropriate, variously including the following: *Automated exposure control *Adjustment of mA and/or kV according to patient size (this includes techniques or standardized protocols for targeted exams where dose is matched to indication/reason for exam; i.e. extremities or head) *Use of iterative reconstruction technique DLP: 550 mGy-cm FINDINGS: LUNG BASES: Bibasilar dependent atelectasis versus infiltrates, slightly more prominent when compared to the prior examination. No confluent airspace consolidation within the visualized lung bases. LIVER, GALLBLADDER, AND BILIARY TREE: The liver is normal in size, shape, and attenuation. No focal hepatic lesion or biliary ductal dilatation is present. The gallbladder is unremarkable with no evidence of radiopaque gallstones, gallbladder wall thickening, or obvious pericholecystic inflammatory changes. PANCREAS: Unremarkable. SPLEEN: Unremarkable. ADRENAL GLANDS: Unremarkable. KIDNEYS AND URETERS: The kidneys are normal in size, shape, and attenuation. Redemonstration of a left lower pole renal stone measuring up to 0.7 cm, unchanged. No new renal or ureteral stone. No hydronephrosis or hydroureter. No perinephric stranding. BLADDER: Unremarkable. GASTROINTESTINAL TRACT: No bowel wall thickening or associated inflammatory change. No small or large bowel obstruction. Mild stool throughout the colon. Status post appendectomy. PERITONEAL CAVITY: No intra-abdominal free air or free fluid. No intra-abdominal mass or organized fluid collection/abscess. ABDOMINAL WALL: Small, fat-containing inguinal hernias, left greater than right. Findings are similar when compared to the prior examination. No new abdominal wall hernia. LYMPH NODES: No significant lymphadenopathy. VASCULAR: No abdominal aortic dilatation or dissection. Scattered atherosclerotic calcifications. Unremarkable IVC. PELVIC VISCERA: The prostate and seminal vesicles are unremarkable. OSSEOUS STRUCTURES: Unremarkable. CT/CT abdomen pelvis w con IMPRESSION: 1. No intra-abdominal mass, lymphadenopathy, or ascites. 2. Mild stool burden. No small or large bowel obstruction. No bowel wall thickening or associated inflammatory change. 3. Stable left lower pole renal stone. No hydronephrosis or hydroureter. 4. Small, fat-containing inguinal hernias, left greater than right. Findings are similar when compared to the prior examination. No new abdominal wall hernia.
--- NOTE | 2020-04-25 08:09 | US_ITS ---
EXAMINATION: US SCROTUM US SCROTUM DOPPLER CLINICAL INFORMATION: Bilateral testicular pain. COMPARISON: Scrotal ultrasound dated 03/23/2020. TECHNIQUE: A sonogram of the scrotum was performed assessing avila-scale appearance and color Doppler flow. Spectral Doppler analysis of the arterial and venous flow were performed in the testes bilaterally. FINDINGS: RIGHT: Right testicle measures 4.9 x 2 x 3.4 cm, volume 17.4 mL. No focal testicular parenchymal lesions are visualized. Spectral Doppler analysis of the arterial and venous flow is normal in the right testis. Right epididymal head is normal in size. Septated right epididymal head cyst measuring up to 0.8 cm, similar when compared to the prior examination. No right-sided hydrocele. Mild right-sided varicocele, unchanged. Right epididymal Doppler flow is normal. LEFT: Left testicle measures 4.8 x 1.8 x 3 cm, volume 13.6 mL. No new focal testicular parenchymal lesions are visualized. Spectral Doppler analysis of the arterial and venous flow is normal in the left testis. There is a 0.2 cm calcification posterior to the left scrotum, which may represent a small scrotal josey. Left epididymal head is normal in size. No left-sided hydrocele. Mild left-sided varicocele, unchanged. Left epididymal Doppler flow is normal. US/US scrotum doppler IMPRESSION: 1. Mild right and left-sided varicoceles, unchanged. 2. Right epididymal head cysts, similar when compared to the prior examination. 3. Possible left scrotal josey measuring 0.2 cm. 4. Sonographically unremarkable right and left testicle. No inflammatory change.
--- NOTE | 2020-04-25 08:33 | ED.GENADULT ---
HPI - General Adult General Chief complaint: Abdominal Pain Stated complaint: abd pain Time Seen by Provider: 04/25/20 07:21 Source: patient Mode of arrival: ambulatory Limitations: language barrier (boat camp operator was used to obtain information) History of Present Illness HPI narrative: 55-year-old male who presents emergency department for evaluation of abdominal, testicular and flank pain. Patient states that he has had constant pain in these areas for approximately 1 month. He states that the pain is a sharp pain which is 10/10. Patient states these notice problem urinating where he will urinate a lot and then a little. He has also noticed some dysuria. He states that he is having pain in both testicles which she describes a sharp constant pain as well. States he has been having less erections than normal. He states that his pain seems to be worse after intercourse. The patient was seen , 5 days prior by his PCP and started on ciprofloxacin 500 mg twice a day possibly for prostate problem. The patient was seen in the emergency department on 03/19/[address] scan of the abdomen pelvis with Doppler ultrasound which was unremarkable. Also had a CT scan of the abdomen on 02/22/2020. Related Data Home Medications Medication Instructions Recorded Confirmed aspirin 81 mg tablet,delayed 81 mg PO DAILY 04/11/20 04/11/20 release atorvastatin 80 mg tablet 80 mg PO DAILY 04/11/20 04/11/20 carvedilol 3.125 mg tablet 3.125 mg PO BID 04/11/20 04/11/20 clopidogrel 75 mg tablet 75 mg PO DAILY 04/11/20 04/11/20 ezetimibe 10 mg tablet 10 mg PO DAILY 04/11/20 04/11/20 gabapentin 800 mg tablet 800 mg PO BID 04/11/20 04/11/20 isosorbide mononitrate 60 mg 60 mg PO DAILY 04/11/20 04/11/20 tablet,extended release 24 hr lisinopril 2.5 mg tablet 2.5 mg PO DAILY 04/11/20 04/11/20 melatonin 5 mg capsule See Rx Instructions PO ONCE cap 04/11/20 04/11/20 nitroglycerin 0.4 mg sublingual 0.4 mg SUBLINGUAL Q5M PRN 04/11/20 04/11/20 tablet ranolazine 500 mg tablet,extended 500 mg PO BID 04/11/20 04/11/20 release,12 hr Previous Rx's Medication Instructions Recorded polyethylene glycol 3350 [Miralax] 17 g PO DAILY PRN #14 ea 02/22/20 magnesium citrate 300 ml PO DAILY PRN #296 ml 02/28/20 polyethylene glycol 3350 [Miralax] 17 g PO BID #30 ea 02/28/20 sodium phosphates [Fleet Enema] 118 ml MO DAILY PRN #532 ml 02/28/20 metformin 500 mg PO BID #60 tab 03/23/20 insulin aspart U-100 100 unit/mL 10 unit SUBCUT TID #15 ml 04/11/20 (3 mL) subcutaneous pen insulin glargine 100 unit/mL (3 30 unit SUBCUT BID #15 ml 04/11/20 mL) subcutaneous pen doxycycline hyclate 100 mg PO BID 10 Days #20 tab 04/25/20 oxycodone 5 mg PO Q4H PRN #14 tab 04/25/20 Allergies Allergy/AdvReac Type Severity Reaction Status Date / Time No Known Allergies Allergy Verified 04/11/20 10:14 [No Known Allergies*] Review of Systems Review of Systems: Yes all other systems are reviewed and are negative Neurologic: Reports Abnormal speech present PMFSH Past Medical History Medical History Cardiomyopathy Chronic HFrEF (heart failure with reduced ejection fraction) Essential hypertension Hepatitis B Hepatitis C History of pancreatitis Hyperlipidemia LDL goal <70 Myocardial infarction Type 2 diabetes mellitus with diabetic polyneuropathy Type 2 diabetes mellitus with hyperglycemia, with long-term current use of insulin Surgical History H/O cardiac catheterization H/O coronary artery bypass surgery History of appendectomy Hx of heart artery stent Family History Family History Mother Diabetes Social History Social History Alcohol intake: never Smoking Status: Never smoker Use of substances other than those prescribed or required for medical reasons: No Advance Directives: No Advance Directives Information Provided: Yes Physical Exam Vital Signs: Vital Signs: Last Vital Signs Temp 97.8 F 01/12/21 12:59 Pulse 58 04/25/20 12:59 Resp 15 04/25/20 12:59 BP 120/84 04/25/20 12:59 Pulse Ox 96 04/25/20 12:59 Body Mass Index 27.9 Const: General: cooperative and in distress (Moaning secondary to pain) moderate (Secondary to pain) Orientation/consciousness: oriented to person and oriented to place Limitations: no limitations HENMT: Head: Yes normal to inspection, Yes normocephalic and Yes atraumatic Ears: external ears normal General nose exam: Normal external nose present Face and sinus: Yes normal facial exam Mouth: Normal oral and palatal mucosa present Throat: Yes posterior oropharynx normal Eyes: Periorbital: periorbital findings normal Eyelids: Yes eyelids normal Conjunctivae: conjunctivae normal Sclerae: sclerae normal Corneas: corneas normal Pupils: Equal, round and reactive pupils present Direct Ophthalmoscopy: normal light reflex Neck: Neck: Yes full ROM, Yes no lymphadenopathy, Yes no meningeal signs, Yes trachea midline and Yes supple Chest: Chest palpation & inspection: normal inspection of the chest and normal palpation of entire chest wall Resp: Effort & Inspection: normal respiratory effort and able to speak in complete sentences Auscultation: clear to auscultation bilaterally Cardio: Rate: regular rate Rhythm: regular rhythm Heart sounds: S1 normal heart sound present, S2 normal heart sound present and no murmurs GI: Inspection: Yes normal to inspection Palpation (GI): Soft to palpation, Tenderness to palpation present (GI) in the LLQ (Moderate), in the RLQ (Moderate) and suprapubicly (Moderate), Guarding due to palpation present (GI) (Voluntary, lower abdomen), not rigid and No hepatosplenomegaly present Rectal Exam - Male: Yes normal sphincter tone and Yes prostate abnormal (Moderate tenderness) : General: Yes no CVA tenderness Penis: normal penis and uncircumcised Meatus: meatus normal Scrotum: scrotum normal Testes: testicular tenderness bilateral (Moderate) Back/Spine/Pelvis: Back: no CVA tenderness Cervical Spine: normal cervical lordosis Thoracic/Lumbar Spine: thoracic and lumbar spine normal to inspection Skin: Lesions: no lesions Rashes: no rashes Wounds: no wounds Neuro: General: oriented to person, oriented to place and no meningeal signs Cranial nerves: Yes Equal, round and reactive pupils present Cognition (Neuro): normal cognition Speech: Abnormal speech present Motor exam (neuro): 5/5 motor strength present throughout Extrem: General: Yes normal to inspection and Yes full ROM Psych: Appearance: well kempt Mental Status: mental status grossly normal Speech and movement: Normal speech and movement present Affect: normal affect Attitude: cooperative Thought process: Normal thought process present Thought content: Normal thought content present Course Course Course Narrative: 55-year-old male who presents emergency department for evaluation of lower abdominal pain x1 month which has been constant, bilateral flank pain and testicular pain x1 month as well. Examination did reveal significant lower abdominal tenderness, testicular tenderness and CVA tenderness. He also had significant tenderness with palpation of his prostate on rectal exam. The patient has had 2-CAT scans in the past with a negative ultrasound as well. Given the severity of his pain however I am concerned that he may have an acute abdomen or testicular torsion. I did order an abdominal pain workup to include CT scan of the abdomen pelvis with IV contrast and testicular ultrasound. Patient was ordered to get Toradol 30 mg IV, morphine 4 mg IV, Zofran 4 mg IV and normal saline x1 L. 1319: Patient got no relief his pain with above medications. Use ordered to get a 2nd dose of morphine 4 mg IV. The patient's laboratory evaluation revealed an elevated glucose at 303, and normal AST ALT with an elevated alk-phos of 120 for an elevated bilirubin 1.4. Urinalysis was negative. Testicular ultrasound was unremarkable. CT scan of the abdomen pelvis was unchanged from the previous and did not reveal any acute cause for the patient's pain. The patient may have prostatitis and has been taking ciprofloxacin without relief. The patient will be changed to doxycycline 100 mg twice a day for 10 days to see if this improves his symptoms. The patient will be discharged home with printed instruction advised to follow-up with his PCP for re-evaluation. He was advised to take ibuprofen, Tylenol, stool softener, Metamucil and oxycodone. Medical Decision Making Lab Data Result diagrams: 04/25/20 09:03 04/25/20 09:03 Labs: Lab Results 04/25/20 04/25/20 04/25/20 Range/Units 09:03 09:03 11:15 WBC 5.2 (4.8-10.8) X10*3/uL RBC 5.09 (4.60-5.80) X10*6/uL Hgb 15.7 (14.0-18.0) g/dl Hct 46.9 (42-52) % MCV 92.1 (80-98) fL MCH 30.8 (27.0-33.0) pg MCHC 33.5 (31.0-36.0) g/dl RDW 12.3 (11.0-16.0) % Plt Count 159 L (160-400) X10*3/uL MPV 11.1 (9.4-12.4) fL Immature Gran % (Auto) 0.4 (0.0-0.4) % Neut % (Auto) 62.5 (45-73) % Lymph % (Auto) 26.3 (20-40) % [place] % (Auto) 7.1 (2-11) % Eos % (Auto) 3.1 (0-4) % Baso % (Auto) 0.6 (0-2) % Lymph # (Auto) 1.4 (1.2-4.9) X10*3/uL [place] # (Auto) 0.4 (0.1-1.2) X10*3/uL Eos # (Auto) 0.2 (0.0-0.4) X10*3/uL Baso # (Auto) 0.0 (0.0-0.2) X10*3/uL Abs Immat Gran (auto) 0.02 (0.00-0.03) X10*3/uL Absolute Neuts (auto) 3.3 (2.0-8.3) X10*3/uL Absolute Nucleated RBC 0.000 (0.0-0.012) X10*3/uL Nucleated RBC % (auto) 0.0 (0.0-0.2) /100WBC Sodium 142 (135-145) mmol/L Potassium 4.9 D (3.3-5.1) mmol/l Chloride 106 (96-108) mmol/L Carbon Dioxide 30 H (22-29) mmol/L Anion Gap 11 L (12-20) BUN 16 (9-16) mg/dL Creatinine 1.02 (0.5-1.4) mg/dL Estim Creat Clear Calc 86.1 Estimated GFR > 60 Random Glucose 303 H (60-115) mg/dL Calcium 9.2 D (8.4-10.2) mg/dL Total Bilirubin 1.4 H (0.0-1.0) mg/dL AST 17 (5-37) U/L ALT 26 (0-40) U/L Alkaline Phosphatase 128 H (39-117) U/L Total Protein 6.4 L (6.5-8.0) g/dL Albumin 4.0 (3.5-5.0) g/dL Lipase 46 (8-78) U/L Urine Color YELLOW Urine Appearance CLEAR Urine pH 6.5 (5.0-8.0) Ur Specific [place] 1.020 (1.005-1.025) Urine Protein NEG (NEG-TRACE) MG/DL Urine Glucose (UA) >=1000 H (NEG) MG/DL Urine Ketones NEG (NEG) MG/DL Urine Blood NEG (NEG) Urine Nitrite NEG (NEG) Ur Leukocyte Esterase NEG (NEG) Urine RBC 0 (0) /HPF Urine WBC 0-2 (0-4) /HPF Ur Squamous Epith Cells TRACE /LPF Urine Bacteria NONE /LPF Discharge Plan Discharge Clinical Impression: Abdominal pain, Acute prostatitis Patient Disposition: Home, Self-Care Instructions: Prostatitis (ED) Additional Instructions: Your blood work was unremarkable. The ultrasound of your testicles was normal. The CT scan of your abdomen and pelvis was normal as well. At this time, I suspect that her pain may be due to inflammation or infection of your prostate. Stop taking ciprofloxacin. Instead take doxycycline 100 mg pills, 1 pill twice a day for 10 days. Take ibuprofen 200 mg pills, 3 pills every 6 hours as needed for pain. Take Tylenol (acetaminophen) 500 mg pills, 2 pills every 4-6 hours as needed for pain. For pain not relieved by ibuprofen or Tylenol take oxycodone 5 mg pills, 1 pill every 4 hours as needed for pain. Do not drive or work while taking this medication since they can cause sleepiness. Oxycodone is a narcotic medication that can be addicting. If you are concerned about addiction you can ask the pharmacist for less pills or do not get this prescription filled. Take the [id number] stool softener, Colace 100 mg, 1 pill twice a day for 10 days. Take Metamucil 1 tsp once a day to help with constipation. Follow-up with your doctor in 2 days. You can also follow-up with our neurologist, Dr. Nigel Arboleda. Please return to the emergency department if your symptoms get worse or if you develop any symptoms that are concerning to you. Prescriptions: New doxycycline hyclate 100 mg tablet 100 mg PO BID 10 Days Qty: 20 RF: 0 oxycodone 5 mg tablet 5 mg PO Q4H PRN (Reason: pain) Qty: 14 RF: 0 No Action polyethylene glycol 3350 [Miralax] 17 gram powder in packet 17 g PO DAILY PRN (Reason: constipation) Qty: 14 RF: 0 polyethylene glycol 3350 [Miralax] 17 gram powder in packet 17 g PO BID Qty: 30 RF: 0 magnesium citrate Solution 300 ml PO DAILY PRN (Reason: constipation) Qty: 296 RF: 0 Fleet Enema 19-7 gram/118 mL enema 118 ml MO DAILY PRN (Reason: constipation) Qty: 532 RF: 0 metformin 500 mg tablet 500 mg PO BID Qty: 60 RF: 0 aspirin [Adult Low Dose Aspirin] 81 mg tablet,delayed release (DR/EC) 81 mg PO DAILY RF: 0 clopidogrel 75 mg tablet 75 mg PO DAILY RF: 0 carvedilol 3.125 mg tablet 3.125 mg PO BID RF: 0 lisinopril 2.5 mg tablet 2.5 mg PO DAILY RF: 0 isosorbide mononitrate 60 mg tablet extended release 24 hr 60 mg PO DAILY RF: 0 atorvastatin 80 mg tablet 80 mg PO DAILY RF: 0 melatonin 5 mg capsule See Rx Instructions PO ONCE RF: 0 gabapentin 800 mg tablet 800 mg PO BID RF: 0 nitroglycerin 0.4 mg tablet, sublingual 0.4 mg sublingual Q5M PRNRF: 0 ranolazine [Ranexa] 500 mg tablet extended release 12 hr 500 mg PO BID RF: 0 ezetimibe [Zetia] 10 mg tablet 10 mg PO DAILY RF: 0 insulin aspart U-100 [Novolog Flexpen U-100 Insulin] 100 unit/mL (3 mL) insulin pen 10 unit subcut TID Qty: 15 RF: 2 Lantus Solostar U-100 Insulin 100 unit/mL (3 mL) insulin pen 30 unit subcut BID Qty: 15 RF: 0 Referrals: Nigel Arboleda MD [Physician] - 2 days
[2020-04-25] MEDS: 0.9 % Sodium Chloride 1,000 ML 999 ML IV (09:10)
[2020-04-25] MEDS: Ketorolac Tromethamine 30 MG/ML VIAL IVPUSH (09:10)
[2020-04-25] MEDS: Morphine Sulfate 4 MG/ML CARTRIDGE IVPUSH ×2 (09:11→13:37)
[2020-04-25] MEDS: ondansetron HCL 4 MG/2 ML VIAL IVPUSH (09:11)
[2020-04-25 09:15] LABS: MANUAL DIFF FLAG NO
[2020-04-25 09:17] LABS: Basophils Percent Auto 0.6 % (0-2); Eosinophils Absolute Auto 0.2 X10*3/uL (0.0-0.4); Eosinophils Percent Auto 3.1 % (0-4); Hematocrit 46.9 % (42-52); Hemoglobin 15.7 g/dl (14.0-18.0); Imm Gran Abs Auto 0.02 X10*3/uL (0.00-0.03); Imm Gran Pct Auto 0.4 % (0.0-0.4); Lymphocytes Absolute Auto 1.4 X10*3/uL (1.2-4.9); Lymphocytes Percent Auto 26.3 % (20-40); Mean Corpuscular HGB Conc 33.5 g/dl (31.0-36.0); Mean Corpuscular Hemoglobin 30.8 pg (27.0-33.0); Mean Corpuscular Volume 92.1 fL (80-98); Mean Platelet Volume 11.1 fL (9.4-12.4); Monocytes Absolute Auto 0.4 X10*3/uL (0.1-1.2); Monocytes Percent Auto 7.1 % (2-11); Neutrophils Absolute Auto 3.3 X10*3/uL (2.0-8.3); Neutrophils Percent Auto 62.5 % (45-73); Platelet Count 159 X10*3/uL (160-400); Red Blood Count 5.09 X10*6/uL (4.60-5.80); Red Cell Distribution Width 12.3 % (11.0-16.0); White Blood Count 5.2 X10*3/uL (4.8-10.8)
[2020-04-25 09:45] LABS: Alanine Aminotransferase 26 U/L (0-40); Alkaline Phosphatase 128 U/L (39-117); Anion Gap 11 (12-20); Aspartate Amino Transferase 17 U/L (5-37); Bilirubin Total 1.4 mg/dL (0.0-1.0); Blood Urea Nitrogen 16 mg/dL (9-16); Calcium 9.2 mg/dL (8.4-10.2); Carbon Dioxide 30 mmol/L (22-29); Chloride 106 mmol/L (96-108); Creatinine Clr Calc Pharmacy 86.1; Estimated Glomerular Filt Rate > 60; Glucose Random 303 mg/dL (60-115); Lipase 46 U/L (8-78); Potassium 4.9 mmol/l (3.3-5.1); Sodium 142 mmol/L (135-145); Total Protein 6.4 g/dL (6.5-8.0)
--- NOTE | 2020-04-25 10:44 | US_ITS ---
EXAMINATION: US SCROTUM US SCROTUM DOPPLER CLINICAL INFORMATION: Bilateral testicular pain. COMPARISON: Scrotal ultrasound dated 03/23/2020. TECHNIQUE: A sonogram of the scrotum was performed assessing avila-scale appearance and color Doppler flow. Spectral Doppler analysis of the arterial and venous flow were performed in the testes bilaterally. FINDINGS: RIGHT: Right testicle measures 4.9 x 2 x 3.4 cm, volume 17.4 mL. No focal testicular parenchymal lesions are visualized. Spectral Doppler analysis of the arterial and venous flow is normal in the right testis. Right epididymal head is normal in size. Septated right epididymal head cyst measuring up to 0.8 cm, similar when compared to the prior examination. No right-sided hydrocele. Mild right-sided varicocele, unchanged. Right epididymal Doppler flow is normal. LEFT: Left testicle measures 4.8 x 1.8 x 3 cm, volume 13.6 mL. No new focal testicular parenchymal lesions are visualized. Spectral Doppler analysis of the arterial and venous flow is normal in the left testis. There is a 0.2 cm calcification posterior to the left scrotum, which may represent a small scrotal josey. Left epididymal head is normal in size. No left-sided hydrocele. Mild left-sided varicocele, unchanged. Left epididymal Doppler flow is normal. US/US scrotum IMPRESSION: 1. Mild right and left-sided varicoceles, unchanged. 2. Right epididymal head cysts, similar when compared to the prior examination. 3. Possible left scrotal josey measuring 0.2 cm. 4. Sonographically unremarkable right and left testicle. No inflammatory change.
[2020-04-25] MEDS: iohexoL 350 MG/ML 100 ML INFUS..BTL 85 ML IV (10:46)
[2020-04-25 11:12] VITALS: BP 128/79; PULSE 58; RESP 17; TEMP 36.6; O2SAT 97
[2020-04-25 11:28] LABS: Glucose Urine UA >=1000 MG/DL (NEG); Leukocyte Esterase Urine NEG (NEG); Nitrite Urine NEG (NEG); PH 6.5 (5.0-8.0); Urine Blood NEG (NEG); Urine Ketones NEG (NEG); Urine Protein NEG (NEG-TRACE)
[2020-04-25 11:33] LABS: Appearance Urine CLEAR; Color Urine YELLOW
[2020-04-25 12:11] LABS: RBC Urine 0 /HPF (0); Squamous Epithelial Cell Urine TRACE /LPF; WBC Urine 0-2 /HPF (0-4)
[2020-04-25 12:59] VITALS: BP 120/84; PULSE 58; RESP 15; TEMP 36.6; O2SAT 96
[2020-04-25 14:10] VITALS: BP 125/76; PULSE 57; RESP 16; TEMP 36.4; O2SAT 96
== END 2020-04-25 14:20 | disposition home or self-care (01) ==
PROVIDERS: Emergency Provider Emergency Medicine Emergency Medical Services; PCP Family Medicine
DX: N41.0 Acute prostatitis (principal); R10.9 Unspecified abdominal pain; N50.812 Left testicular pain; N50.811 Right testicular pain; Z79.899 Other long term (current) drug therapy
CPT/HCPCS: 36415; 74177; 76870; 80053; 81001; 83690; 85025; 93975; 96361; 96374; 96375; 96376; 99284; J1885; J2270; J2405; Q9967

== ENCOUNTER → 2020-05-15 09:05 | Outpatient (BNVA) | payer MEDICAID, SELFPAY | PROVIDERS: PCP Family Medicine; Visit Provider Nurse Practitioner Gerontology ==

== ENCOUNTER 2020-07-09 13:00 | Emergency (ER) | payer MEDICAID, SELFPAY ==
--- NOTE | ~2020-07-09 | CT_ITS ---
EXAMINATION: CT ABDOMEN AND PELVIS WITHOUT CONTRAST CLINICAL INFORMATION: Right lower quadrant and right flank pain COMPARISON: 04/25/2020 TECHNIQUE: Multidetector volumetric imaging was performed from the lung bases through the pubic symphysis. Sagittal and coronal reformatted images were obtained on the technologist workstation. This CT examination was performed using dose optimization techniques as appropriate, variously including the following: *Automated exposure control *Adjustment of mA and/or kV according to patient size (this includes techniques or standardized protocols for targeted exams where dose is matched to indication/reason for exam; i.e. extremities or head) *Use of iterative reconstruction technique Total exam dose-length product 469 mGy-cm FINDINGS: The lack of intravenous contrast limits evaluation of the solid visceral organs including the liver, spleen, pancreas, and kidneys. LUNG BASES: There is patchy opacity at the lung bases. No dense focal consolidation. No pleural effusion. Sternal wires and mediastinal vascular clips are present. Heart size upper limits of normal. LIVER, GALLBLADDER, AND BILIARY TREE: Limited non-contrast evaluation is normal. No gross focal hepatic lesion. Normal liver size and contour. No gross biliary ductal dilation. The gallbladder is unremarkable with no evidence of radiopaque gallstones, gallbladder wall thickening, or obvious pericholecystic inflammatory changes. PANCREAS: Limited non-contrast evaluation is normal. No trini-pancreatic fluid. SPLEEN: Limited non-contrast evaluation is normal. ADRENAL GLANDS: Normal; no adrenal mass. KIDNEYS AND URETERS: 5 mm nonobstructing left lower pole renal calculus. No hydronephrosis or mass. No hydroureter. GASTROINTESTINAL TRACT: Stomach is collapsed. There is some prominent loops of proximal small bowel in the left abdomen. These measure upper limits of normal in caliber, some distended with fluid others with fecalized small bowel contents suggesting prolonged small bowel transit time or stasis. Distal small bowel loops in the right abdomen are decompressed however. No inflammatory changes to suggest appendicitis. Scattered colonic diverticulosis. No evidence of colitis or diverticulitis. ABDOMINAL WALL: No hernia seen. LYMPH NODES: No pathologically enlarged lymph nodes in the abdomen or pelvis. VASCULAR: Normal caliber abdominal aorta. BLADDER: Unremarkable. PELVIC VISCERA: Normal noncontrast appearance of the prostate and seminal vesicles. OSSEOUS STRUCTURES: No acute or suspicious osseous abnormalities. CT/CT abdomen pelvis wo con IMPRESSION: No CT findings to explain right-sided abdominal pain. There are some prominent loops of proximal small bowel in the left abdomen, measuring upper limits of normal in caliber, some distended with fluid others with fecalized small bowel contents, a finding which suggests prolonged small bowel transit time or stasis. A partial or developing small bowel obstruction could have this appearance but its unclear that this would present with right-sided abdominal pain. These findings are new from the prior CT scan. Nonobstructing 5 mm left lower pole calculus. This was present on the prior CT scan, unchanged. There are patchy areas of groundglass opacity at the lung bases. This could represent atelectasis but infectious or inflammatory process could have this appearance as well. The appearance is similar to the prior study
[2020-07-09 13:25] VITALS: BP 102/58; PULSE 84; RESP 20; TEMP 36.8; BMI 26.4
--- NOTE | 2020-07-09 15:42 | PC.NURSE ---
tracey burroughs in to assess, pt c/o lower right quadrant pain, pt to be transfered to main ed for further evaluation and treatment
--- NOTE | 2020-07-09 15:46 | ED.GENADULT ---
HPI - General Adult General Chief complaint: Back Pain/Injury Stated complaint: flank pain Time Seen by Provider: 07/09/20 14:40 History of Present Illness HPI narrative: Patient complains of both right low back right flank and right low abdominal pain, he has had this pain for over a month waxing and waning but is worse the past 2 days, he has intermittent mild nausea for the past 2 days but no vomiting no diarrhea no fever no chills no dysuria no burning with urination no frequency of urination, no numbness no weakness no tingling no incontinence Related Data Home Medications Medication Instructions Recorded Confirmed aspirin 81 mg tablet,delayed 81 mg PO DAILY 04/11/20 05/15/20 release atorvastatin 80 mg tablet 80 mg PO DAILY 04/11/20 05/15/20 carvedilol 3.125 mg tablet 3.125 mg PO BID 04/11/20 05/15/20 clopidogrel 75 mg tablet 75 mg PO DAILY 04/11/20 05/15/20 ezetimibe 10 mg tablet 10 mg PO DAILY 04/11/20 05/15/20 gabapentin 800 mg tablet 800 mg PO BID 04/11/20 05/15/20 isosorbide mononitrate 60 mg 60 mg PO DAILY 04/11/20 05/15/20 tablet,extended release 24 hr lisinopril 2.5 mg tablet 2.5 mg PO DAILY 04/11/20 05/15/20 melatonin 5 mg capsule See Rx Instructions PO ONCE cap 04/11/20 05/15/20 nitroglycerin 0.4 mg sublingual 0.4 mg SUBLINGUAL Q5M PRN 04/11/20 05/15/20 tablet ranolazine 500 mg tablet,extended 500 mg PO BID 04/11/20 05/15/20 release,12 hr Previous Rx's Medication Instructions Recorded magnesium citrate 300 ml PO DAILY PRN #296 ml 02/28/20 polyethylene glycol 3350 [Miralax] 17 g PO BID #30 ea 02/28/20 sodium phosphates [Fleet Enema] 118 ml OR DAILY PRN #532 ml 02/28/20 oxycodone 5 mg PO Q4H PRN #14 tab 04/25/20 insulin aspart U-100 100 unit/mL See Rx Instructions SUBCUT QID #30 05/15/20 (3 mL) subcutaneous pen ml pen needle, diabetic 32 gauge x #125 ea 05/15/20 insulin glargine 100 unit/mL (3 36 unit SUBCUT DAILY #15 ml 06/07/20 mL) subcutaneous pen metformin 500 mg tablet 500 mg PO BID #60 tab 06/12/20 oxycodone 5 mg PO Q6H PRN #7 cap 07/09/20 psyllium husk [Daily Fiber] 0.4 g PO BEDTIME PRN #10 cap 07/09/20 Allergies Allergy/AdvReac Type Severity Reaction Status Date / Time No Known Allergies Allergy Verified 05/15/20 09:54 [No Known Allergies*] Review of Systems Review of Systems: Positive for low back pain and right low abdominal pain negatives are no fever no chills no dizziness no weakness no confusion no fainting no feeling faint no headache no neck pain no difficulty breathing or swallowing no chest pain no shortness of breath no palpitations no vomiting no diarrhea no dysuria no burning or frequency with urination no skin rash no joint pains no numbness or weakness PMFSH Past Medical History Source: nursing notes reviewed Medical History Cardiomyopathy Chronic HFrEF (heart failure with reduced ejection fraction) Essential hypertension Hepatitis B Hepatitis C History of pancreatitis Hyperlipidemia LDL goal <70 Myocardial infarction Type 2 diabetes mellitus with diabetic polyneuropathy Type 2 diabetes mellitus with hyperglycemia, with long-term current use of insulin Surgical History H/O cardiac catheterization H/O coronary artery bypass surgery History of appendectomy Hx of heart artery stent Family History Family History Mother Diabetes Social History Social History (Updated 05/15/20 @ 09:07 by BONNIE Wadsworth) Household Members: Spouse Alcohol intake: never Smoking Status: Never smoker Smoked in Last 30 Days: No Use of substances other than those prescribed or required for medical reasons: No Advance Directives: No Advance Directives Information Provided: Yes Physical Exam Vital Signs: Vital Signs: Last Vital Signs Temp 98.3 F 07/09/20 19:29 Pulse 58 07/09/20 19:29 Resp 18 07/09/20 19:29 BP 119/67 07/09/20 19:29 Pulse Ox 97 07/09/20 19:29 Body Mass Index 26.4 General appearance is no acute distress, mildly uncomfortable, communicating clearly with good understanding, and cooperative, a and O x3 The eyes are anicteric with no pallor The mucous membranes are moist, pharynx is normal Neck is supple Chest is clear to auscultation bilaterally with full symmetric equal breath sounds Heart rate and rhythm regular no murmur The abdomen had some mild right low abdominal tenderness including McBurney's point, but he does have a scar there from a prior appendicitis, there is no rebound no guarding The back and lower lumbar tenderness there was no CVA tenderness the skin of the back was normal, there was no lumbar point tenderness Extremities full range of motion x4, no edema no rash Neuro no focal deficit, no motor deficit or sensory deficit, communication is clear with good understanding and clear conversation Course Course Course Narrative: No acute findings on CT, prominent loops of small bowel in the left abdomen were noted but there were within normal limits, they could not rule out based on appearance a developing small bowel obstruction on the left, but that is did not match where the patient had experienced is pain After an analgesic the patient's pain was gone he was hungry he was asymptomatic and her repeat abdominal exam showed no tenderness right side or left side, patient was allowed to eat something and enjoyed it without any nausea or discomfort, so very unlikely that this is an impending small-bowel obstruction in an asymptomatic patient who is tolerating p.o. and hungry UA was normal and there were no acute new lab abnormalities After morphine administration his blood pressure dropped, but returned to normal without any need for fluids or resuscitation and repeat blood pressure was 119/67 Records were reviewed from his admission to [facility] 2 weeks ago for urinary tract infection showing he had just completed antibiotic a week ago for this but right now he has no dysuria no burning of urination no signs of urinary tract infection Patient is discharged with diagnosis of abdominal pain resolved uncertain etiology and at this point he is asymptomatic and well appearing and is discharged As he has had these episodes of pain flaring off and on for a month I wrote him for some analgesics if needed Medical Decision Making Lab Data Lab results reviewed: Yes I reviewed the patient's lab results. Result diagrams: 07/09/20 16:41 07/09/20 17:36 Labs: Lab Results 07/09/20 07/09/20 07/09/20 Range/Units 16:41 17:36 17:36 WBC 5.3 (4.8-10.8) X10*3/uL RBC 4.61 (4.60-5.80) X10*6/uL Hgb 13.8 L (14.0-18.0) g/dl Hct 42.0 (42-52) % MCV 91.1 (80-98) fL MCH 29.9 (27.0-33.0) pg MCHC 32.9 (31.0-36.0) g/dl RDW 13.2 (11.0-16.0) % Plt Count 156 L (160-400) X10*3/uL MPV 10.9 (9.4-12.4) fL Immature Gran % (Auto) 0.2 (0.0-0.4) % Neut % (Auto) 60.5 (45-73) % Lymph % (Auto) 24.9 (20-40) % [place] % (Auto) 9.3 (2-11) % Eos % (Auto) 4.7 H (0-4) % Baso % (Auto) 0.4 (0-2) % Lymph # (Auto) 1.3 (1.2-4.9) X10*3/uL [place] # (Auto) 0.5 (0.1-1.2) X10*3/uL Eos # (Auto) 0.3 (0.0-0.4) X10*3/uL Baso # (Auto) 0.0 (0.0-0.2) X10*3/uL Abs Immat Gran (auto) 0.01 (0.00-0.03) X10*3/uL Absolute Neuts (auto) 3.2 (2.0-8.3) X10*3/uL Absolute Nucleated RBC 0.000 (0.0-0.012) X10*3/uL Nucleated RBC % (auto) 0.0 (0.0-0.2) /100WBC Sodium 140 (135-145) mmol/L Potassium 3.9 (3.3-5.1) mmol/L Chloride 111 H (96-108) mmol/L Carbon Dioxide 21 L (22-29) mmol/L Anion Gap 12 (12-20) BUN 22 H (9-16) mg/dL Creatinine 0.80 (0.5-1.4) mg/dL Estim Creat Clear Calc 100.9 Estimated GFR > 60 Random Glucose 193 H D (60-115) mg/dL Calcium 7.5 L D (8.4-10.2) mg/dL Total Bilirubin 1.7 H (0.0-1.0) mg/dL Direct Bilirubin 0.6 H (0.0-0.5) mg/dL AST 20 (5-37) U/L ALT 25 (0-40) U/L Alkaline Phosphatase 108 (39-117) U/L Total Protein 5.4 L (6.5-8.0) g/dL Albumin 3.4 L (3.5-5.0) g/dL Lipase 17 (8-78) U/L Urine Color YELLOW Urine Appearance CLEAR Urine pH 5.5 (5.0-8.0) Ur Specific [facility] >= 1.030 H (1.005-1.025) Urine Protein NEG (NEG-TRACE) MG/DL Urine Glucose (UA) 500 H (NEG) MG/DL Urine Ketones 5 (NEG) MG/DL Urine Blood NEG (NEG) Urine Nitrite NEG (NEG) Ur Leukocyte Esterase NEG (NEG) Imaging Data CT scan - abdomen: Radiologist's impression: : No CT findings to explain right-sided abdominal pain. There are some prominent loops of proximal small bowel in the left abdomen, measuring upper limits of normal in caliber, some distended with fluid others with fecalized small bowel contents, a finding which suggests prolonged small bowel transit time or stasis. A partial or developing small bowel obstruction could have this appearance but its unclear that this would present with right-sided abdominal pain. These findings are new from the prior CT scan. Nonobstructing 5 mm left lower pole calculus. This was present on the prior CT scan, unchanged. There are patchy areas of groundglass opacity at the lung bases. This could represent atelectasis but infectious or inflammatory process could have this appearance as well. The appearance is similar to the prior study Discharge Plan Discharge Clinical Impression: Abdominal pain, Back pain Patient Disposition: Home, Self-Care Additional Instructions: We are not sure what is causing the pain so follow-up closely with primary doctor and if needed a referral to a cuprous chloride helper Scan coincidentally showed some constipation so use Metamucil to reduce constipation, available [id number] Return to the ER any time for worsening abdominal pain, fever, vomiting, any worse condition or any concerns Today the CT scan and labs did not show any emergent condition Prescriptions: New psyllium husk [Daily Fiber] 0.4 gram capsule 0.4 g PO BEDTIME PRN (Reason: constipation) Qty: 10 RF: 0 oxycodone 5 mg capsule 5 mg PO Q6H PRN (Reason: pain) Qty: 7 RF: 0 No Action Lantus Solostar U-100 Insulin 100 unit/mL (3 mL) insulin pen 36 unit subcut DAILY Qty: 15 RF: 2 metformin 500 mg tablet 500 mg PO BID Qty: 60 RF: 2 polyethylene glycol 3350 [Miralax] 17 gram powder in packet 17 g PO BID Qty: 30 RF: 0 magnesium citrate Solution 300 ml PO DAILY PRN (Reason: constipation) Qty: 296 RF: 0 Fleet Enema 19-7 gram/118 mL enema 118 ml OR DAILY PRN (Reason: constipation) Qty: 532 RF: 0 oxycodone 5 mg tablet 5 mg PO Q4H PRN (Reason: pain) Qty: 14 RF: 0 aspirin [Adult Low Dose Aspirin] 81 mg tablet,delayed release (DR/EC) 81 mg PO DAILY RF: 0 clopidogrel 75 mg tablet 75 mg PO DAILY RF: 0 carvedilol 3.125 mg tablet 3.125 mg PO BID RF: 0 lisinopril 2.5 mg tablet 2.5 mg PO DAILY RF: 0 isosorbide mononitrate 60 mg tablet extended release 24 hr 60 mg PO DAILY RF: 0 atorvastatin 80 mg tablet 80 mg PO DAILY RF: 0 melatonin 5 mg capsule See Rx Instructions PO ONCE RF: 0 gabapentin 800 mg tablet 800 mg PO BID RF: 0 nitroglycerin 0.4 mg tablet, sublingual 0.4 mg sublingual Q5M PRNRF: 0 ranolazine [Ranexa] 500 mg tablet extended release 12 hr 500 mg PO BID RF: 0 ezetimibe [Zetia] 10 mg tablet 10 mg PO DAILY RF: 0 insulin aspart U-100 [Novolog Flexpen U-100 Insulin] 100 unit/mL (3 mL) insulin pen See Rx Instructions subcut QID Qty: 30 RF: 2 (DME) pen needle, diabetic [BD Ultra-Fine Salma Pen Needle] 32 gauge x 5/32 needle See Rx Instructions .ROUTE .MEDSULY Qty: 125 RF: 6 Interventions: ED Discharge Assessment Last Done: 07/09/20 21:08 Discharge Date/Time: 07/09/20 21:15
[2020-07-09 16:36] VITALS: BP 94/67; PULSE 63; RESP 16; TEMP 36.8; O2SAT 95
[2020-07-09 16:46] LABS: MANUAL DIFF FLAG NO
[2020-07-09 16:48] LABS: Basophils Percent Auto 0.4 % (0-2); Eosinophils Absolute Auto 0.3 X10*3/uL (0.0-0.4); Eosinophils Percent Auto 4.7 % (0-4); Hemoglobin 13.8 g/dl (14.0-18.0); Imm Gran Abs Auto 0.01 X10*3/uL (0.00-0.03); Imm Gran Pct Auto 0.2 % (0.0-0.4); Lymphocytes Absolute Auto 1.3 X10*3/uL (1.2-4.9); Lymphocytes Percent Auto 24.9 % (20-40); Mean Corpuscular HGB Conc 32.9 g/dl (31.0-36.0); Mean Corpuscular Hemoglobin 29.9 pg (27.0-33.0); Mean Corpuscular Volume 91.1 fL (80-98); Mean Platelet Volume 10.9 fL (9.4-12.4); Monocytes Absolute Auto 0.5 X10*3/uL (0.1-1.2); Monocytes Percent Auto 9.3 % (2-11); Neutrophils Absolute Auto 3.2 X10*3/uL (2.0-8.3); Neutrophils Percent Auto 60.5 % (45-73); Platelet Count 156 X10*3/uL (160-400); Red Blood Count 4.61 X10*6/uL (4.60-5.80); Red Cell Distribution Width 13.2 % (11.0-16.0); White Blood Count 5.3 X10*3/uL (4.8-10.8)
[2020-07-09] MEDS: Morphine Sulfate 4 MG/ML CARTRIDGE IVPUSH (16:49)
[2020-07-09] MEDS: 0.9 % Sodium Chloride 1,000 ML 999 ML IVCONT (16:49)
[2020-07-09] MEDS: ondansetron HCL 4 MG/2 ML VIAL IVPUSH (16:49)
[2020-07-09 17:46] LABS: Glucose Urine UA 500 MG/DL (NEG); Leukocyte Esterase Urine NEG (NEG); Nitrite Urine NEG (NEG); PH 5.5 (5.0-8.0); Specific Gravity - Urine >= 1.030 (1.005-1.025); Urine Blood NEG (NEG); Urine Ketones 5 MG/DL (NEG); Urine Protein NEG (NEG-TRACE)
[2020-07-09 17:52] LABS: Appearance Urine CLEAR; Color Urine YELLOW
[2020-07-09 18:04] LABS: Alanine Aminotransferase 25 U/L (0-40); Albumin Level 3.4 g/dL (3.5-5.0); Alkaline Phosphatase 108 U/L (39-117); Anion Gap 12 (12-20); Aspartate Amino Transferase 20 U/L (5-37); Bilirubin Direct 0.6 mg/dL (0.0-0.5); Bilirubin Total 1.7 mg/dL (0.0-1.0); Blood Urea Nitrogen 22 mg/dL (9-16); Calcium 7.5 mg/dL (8.4-10.2); Carbon Dioxide 21 mmol/L (22-29); Chloride 111 mmol/L (96-108); Creatinine Clr Calc Pharmacy 100.9; Estimated Glomerular Filt Rate > 60; Glucose Random 193 mg/dL (60-115); Lipase 17 U/L (8-78); Potassium 3.9 mmol/L (3.3-5.1); Sodium 140 mmol/L (135-145); Total Protein 5.4 g/dL (6.5-8.0)
--- NOTE | 2020-07-09 18:54 | PC.NURSE ---
pt stating he has 5/10 rt flank pain, pt also stating he is hungry and wanting something to eat/drink, will notify provider
[2020-07-09 19:13] VITALS: BP 97/57; PULSE 61; RESP 17; TEMP 36.7; O2SAT 98
[2020-07-09 19:29] VITALS: BP 119/67; PULSE 58; RESP 18; TEMP 36.8; O2SAT 97
== END 2020-07-09 21:15 | disposition home or self-care (01) ==
PROVIDERS: Physician Assistant Medical; Emergency Provider Emergency Medicine
DX: R10.31 Right lower quadrant pain (principal); M54.5 Low back pain; E11.9 Type 2 diabetes mellitus without complications; Z79.4 Long term (current) use of insulin; Z79.899 Other long term (current) drug therapy
CPT/HCPCS: 36415; 74176; 80048; 80076; 81003; 83690; 85025; 96365; 96375; 99284; J2270; J2405

== ENCOUNTER → 2020-07-24 14:34 | Outpatient (BNVA) | payer MEDICAID, SELFPAY | PROVIDERS: PCP Registered Nurse Community Health; Visit Provider Internal Medicine | DX: I25.10 Atherosclerotic heart disease of native coronary artery without angina pectoris (principal); I25.5 Ischemic cardiomyopathy; E11.65 Type 2 diabetes mellitus with hyperglycemia; Z79.4 Long term (current) use of insulin; E78.5 Hyperlipidemia, unspecified | CPT/HCPCS: 99212 ==

== ENCOUNTER → 2020-08-17 10:46 | Outpatient (BNVA) | payer MEDICAID, SELFPAY | PROVIDERS: PCP Registered Nurse Community Health; Referring Provider Registered Nurse Community Health; Visit Provider Surgery | DX: R10.31 Right lower quadrant pain (principal); K40.90 Unilateral inguinal hernia, without obstruction or gangrene, not specified as recurrent; K59.00 Constipation, unspecified; I10 Essential (primary) hypertension; E11.42 Type 2 diabetes mellitus with diabetic polyneuropathy; E11.65 Type 2 diabetes mellitus with hyperglycemia; E78.5 Hyperlipidemia, unspecified; Z98.890 Other specified postprocedural states; Z95.1 Presence of aortocoronary bypass graft; Z79.84 Long term (current) use of oral hypoglycemic drugs; Z79.899 Other long term (current) drug therapy | CPT/HCPCS: 99202 ==

== ENCOUNTER → 2020-09-07 10:43 | Outpatient (BNVA) | payer MEDICAID, SELFPAY | PROVIDERS: PCP Registered Nurse Community Health; Visit Provider Nurse Practitioner Gerontology ==

== ENCOUNTER → 2020-12-19 13:54 | Outpatient (BNVA) | payer MEDICAID, SELFPAY | PROVIDERS: PCP Registered Nurse Community Health; Referring Provider Registered Nurse Community Health; Visit Provider Internal Medicine | DX: Z01.810 Encounter for preprocedural cardiovascular examination (principal); I25.10 Atherosclerotic heart disease of native coronary artery without angina pectoris; I25.5 Ischemic cardiomyopathy; E78.5 Hyperlipidemia, unspecified; E11.65 Type 2 diabetes mellitus with hyperglycemia; Z79.4 Long term (current) use of insulin | CPT/HCPCS: 93005; 99212 ==

== ENCOUNTER → 2021-01-01 08:29 | Outpatient (BNVA) | payer MEDICAID, SELFPAY | PROVIDERS: PCP Registered Nurse Community Health; Visit Provider Nurse Practitioner Gerontology | DX: E11.65 Type 2 diabetes mellitus with hyperglycemia (principal); E11.42 Type 2 diabetes mellitus with diabetic polyneuropathy; E78.5 Hyperlipidemia, unspecified; I10 Essential (primary) hypertension; Z79.4 Long term (current) use of insulin | CPT/HCPCS: 82947; 83036 ==

== ENCOUNTER 2021-02-06 17:17 | Emergency (ER) | payer MEDICAID, SELFPAY ==
[2021-02-06 18:04] VITALS: PULSE 77; RESP 16; TEMP 36.3; O2SAT 97; BMI 26.4
[2021-02-06 18:29] LABS: MANUAL DIFF FLAG NO
[2021-02-06 18:33] LABS: Appearance Urine CLEAR; Basophils Percent Auto 0.5 % (0-2); Color Urine YELLOW; Eosinophils Absolute Auto 0.4 X10*3/uL (0.0-0.4); Glucose Urine UA NEG (NEG); Hematocrit 44.9 % (42-52); Hemoglobin 15.2 g/dl (14.0-18.0); Imm Gran Abs Auto 0.01 X10*3/uL (0.00-0.03); Imm Gran Pct Auto 0.1 % (0.0-0.4); Leukocyte Esterase Urine NEG (NEG); Lymphocytes Absolute Auto 2.1 X10*3/uL (1.2-4.9); Lymphocytes Percent Auto 28.6 % (20-40); Mean Corpuscular HGB Conc 33.9 g/dl (31.0-36.0); Mean Corpuscular Hemoglobin 30.8 pg (27.0-33.0); Mean Corpuscular Volume 90.9 fL (80-98); Monocytes Absolute Auto 0.5 X10*3/uL (0.1-1.2); Monocytes Percent Auto 6.2 % (2-11); Neutrophils Absolute Auto 4.4 X10*3/uL (2.0-8.3); Neutrophils Percent Auto 59.6 % (45-73); Nitrite Urine NEG (NEG); PH 5.5 (5.0-8.0); Platelet Count 185 X10*3/uL (160-400); Red Blood Count 4.94 X10*6/uL (4.60-5.80); Red Cell Distribution Width 12.6 % (11.0-16.0); Specific Gravity - Urine 1.025 (1.005-1.025); Urine Blood NEG (NEG); Urine Ketones NEG (NEG); Urine Protein NEG (NEG-TRACE); White Blood Count 7.5 X10*3/uL (4.8-10.8)
[2021-02-06 18:51] LABS: Alanine Aminotransferase 29 U/L (0-40); Albumin Level 4.3 g/dL (3.5-5.0); Alkaline Phosphatase 120 U/L (39-117); Anion Gap 12 (12-20); Aspartate Amino Transferase 26 U/L (5-37); Bilirubin Total 1.9 mg/dL (0.0-1.0); Blood Urea Nitrogen 22 mg/dL (9-16); Calcium 9.1 mg/dL (8.4-10.2); Carbon Dioxide 25 mmol/L (22-29); Chloride 109 mmol/L (96-108); Creatinine Clr Calc Pharmacy 85.9; Estimated Glomerular Filt Rate > 60; Glucose Random 122 mg/dL (60-115); Lipase 18 U/L (8-78); Potassium 3.8 mmol/L (3.3-5.1); Sodium 142 mmol/L (135-145); Total Protein 6.8 g/dL (6.5-8.0)
--- NOTE | 2021-02-06 19:17 | ED.ABDPAIN ---
HPI - Abdominal Pain General Chief Complaint: Abdominal Pain Stated Complaint: abd pain Time Seen by Provider: 02/06/21 19:17 Source: patient Mode of arrival: ambulatory Limitations: no limitations History of Present Illness HPI narrative: Patient history of CAD status post CABG, status post PCI KATERINE, diabetes mellitus with peripheral neuropathy, hypertension, hyperlipidemia with recurrent lower abdominal pain was here in 07/02 went to [facility] where he was admitted for 4 days for suprapubic lower abdominal pain with CT scan ultrasound workup was negative was seen by urologist bleed that was inflammatory nature advised take ibuprofen and Medrol Dosepak patient came back on 07/09 for same pain with CT scan negative again comes back for lower abdominal pain for last 2 weeks no nausea no vomiting no diarrhea no relation with food no urinary complaints Related Data Home Medications Medication Instructions Recorded Confirmed aspirin 81 mg tablet,delayed 81 mg PO DAILY 04/11/20 01/01/21 release (Adult Low Dose Aspirin) atorvastatin 80 mg tablet 80 mg PO DAILY 04/11/20 01/01/21 carvedilol 3.125 mg tablet 3.125 mg PO BID 04/11/20 01/01/21 clopidogrel 75 mg tablet 75 mg PO DAILY 04/11/20 01/01/21 ezetimibe 10 mg tablet (Zetia) 10 mg PO DAILY 04/11/20 01/01/21 gabapentin 800 mg tablet 800 mg PO BID 04/11/20 01/01/21 isosorbide mononitrate 60 mg 60 mg PO DAILY 04/11/20 01/01/21 tablet,extended release 24 hr lisinopril 2.5 mg tablet 2.5 mg PO DAILY 04/11/20 01/01/21 melatonin 5 mg capsule See Rx Instructions PO ONCE cap 04/11/20 01/01/21 oxybutynin chloride 10 mg 10 mg PO QAM 12/19/20 01/01/21 tablet,extended release 24 hr pregabalin 100 mg capsule 100 mg PO 12/19/20 01/01/21 Previous Rx's Medication Instructions Recorded magnesium citrate 300 ml PO DAILY PRN #296 ml 02/28/20 polyethylene glycol 3350 17 gram 17 g PO BID #30 ea 02/28/20 oral powder packet (Miralax) sodium phosphates 19 gram-7 118 ml [place] DAILY PRN #532 ml 02/28/20 gram/118 mL enema (Fleet Enema) psyllium husk 0.4 gram capsule 0.4 g PO BEDTIME PRN #10 cap 07/09/20 (Daily Fiber) nitroglycerin 0.4 mg sublingual 0.4 mg SUBLINGUAL Q5M PRN #30 tab 07/24/20 tablet blood sugar diagnostic (FreeStyle 1 strip MISCELLANEOUS QID PRN #150 09/19/20 Lite Strips) strip blood-glucose meter (FreeStyle 1 ea MISCELLANEOUS DIRECTED #1 09/26/20 [place] Lite) kit lancets 33 gauge (TRUEplus Lancets) 1 gauge MISCELLANEOUS QID #100 ea 10/12/20 insulin glargine 100 unit/mL (3 36 unit SUBCUT DAILY #15 ml 12/29/20 mL) subcutaneous pen (Lantus Solostar U-100 Insulin) flash glucose scanning reader #1 ea 01/01/21 (FreeStyle Alfredo 2 [place]) flash glucose sensor (FreeStyle #2 ea 01/01/21 Alfredo 2 Sensor) metformin 500 mg tablet 1,000 mg PO BID #120 tab 01/01/21 pen needle, diabetic 32 gauge x See Rx Instructions .ROUTE 01/22/2132 (Pentips) .COMPLEX #200 ea insulin aspart U-100 100 unit/mL See Rx Instructions SUBCUT QID #30 01/23/21 (3 mL) subcutaneous pen (Novolog ml Flexpen U-100 Insulin aspart) dicyclomine 20 mg tablet 20 mg PO QID PRN #20 tab 02/06/21 Allergies Allergy/AdvReac Type Severity Reaction Status Date / Time No Known Allergies Allergy Verified 01/01/21 09:01 [No Known Allergies*] Review of Systems Review of Systems Yes all other systems are reviewed and are negative Physical Exam Vital Signs: Vital Signs: Last Vital Signs Temp 97.9 F 02/06/21 19:58 Pulse 66 02/06/21 19:58 Resp 18 02/06/21 19:58 BP 122/81 02/06/21 19:58 Pulse Ox 93 02/06/21 19:58 Body Mass Index 26.4 Appearance: Alert. Oriented X3. No acute distress. Eyes: No pallor or icterus ENT: Pharynx normal. Oral Mucosa moist Neck: Normal inspection. Neck supple. CVS: Normal heart rate and rhythm. Pulses normal. Respiratory: No respiratory distress. Equal air entry bilateral, no wheezing/rales/rhonchi Abdomen: Soft mild tenderness suprapubic area. Bowel sounds are present, no mass palpable, no CVA tenderness Skin: Skin warm and dry. Normal skin color. Normal skin turgor. Extremities: No lower MDM - Abdominal Pain MDM Narrative Medical decision making narrative: Patient with chronic lower abdominal pain with workup negative few months ago also today CBC counts are normal urine is negative no acute pathology suspected discharge patient home on dicyclomine advised to follow with molecular spectroscopist. Patient had colonoscopy 4 years ago was negative Differential Diagnosis Differential diagnosis: Likely abdominal pain Lab Data Attestation: I reviewed the patient's lab results. Result diagrams: 02/06/21 18:20 02/06/21 18:20 Labs: Lab Results 02/06/21 02/06/21 02/06/21 Range/Units 18:20 18:20 18:20 WBC 7.5 (4.8-10.8) X10*3/uL RBC 4.94 (4.60-5.80) X10*6/uL Hgb 15.2 (14.0-18.0) g/dl Hct 44.9 (42-52) % MCV 90.9 (80-98) fL MCH 30.8 (27.0-33.0) pg MCHC 33.9 (31.0-36.0) g/dl RDW 12.6 (11.0-16.0) % Plt Count 185 (160-400) X10*3/uL MPV 11.0 (9.4-12.4) fL Immature Gran % (Auto) 0.1 (0.0-0.4) % Neut % (Auto) 59.6 (45-73) % Lymph % (Auto) 28.6 (20-40) % [place] % (Auto) 6.2 (2-11) % Eos % (Auto) 5.0 H (0-4) % Baso % (Auto) 0.5 (0-2) % Lymph # (Auto) 2.1 (1.2-4.9) X10*3/uL [place] # (Auto) 0.5 (0.1-1.2) X10*3/uL Eos # (Auto) 0.4 (0.0-0.4) X10*3/uL Baso # (Auto) 0.0 (0.0-0.2) X10*3/uL Abs Immat Gran (auto) 0.01 (0.00-0.03) X10*3/uL Absolute Neuts (auto) 4.4 (2.0-8.3) X10*3/uL Absolute Nucleated RBC 0.000 (0.0-0.012) X10*3/uL Nucleated RBC % (auto) 0.0 (0.0-0.2) /100WBC Sodium 142 (135-145) mmol/L Potassium 3.8 (3.3-5.1) mmol/L Chloride 109 H (96-108) mmol/L Carbon Dioxide 25 (22-29) mmol/L Anion Gap 12 (12-20) BUN 22 H (9-16) mg/dL Creatinine 0.94 (0.5-1.4) mg/dL Estim Creat Clear Calc 85.9 Estimated GFR > 60 Random Glucose 122 H D (60-115) mg/dL Calcium 9.1 D (8.4-10.2) mg/dL Total Bilirubin 1.9 H (0.0-1.0) mg/dL AST 26 (5-37) U/L ALT 29 (0-40) U/L Alkaline Phosphatase 120 H (39-117) U/L Total Protein 6.8 D (6.5-8.0) g/dL Albumin 4.3 D (3.5-5.0) g/dL Lipase 18 (8-78) U/L Urine Color YELLOW Urine Appearance CLEAR Urine pH 5.5 (5.0-8.0) Ur Specific [place] 1.025 (1.005-1.025) Urine Protein NEG (NEG-TRACE) MG/DL Urine Glucose (UA) NEG (NEG) MG/DL Urine Ketones NEG (NEG) MG/DL Urine Blood NEG (NEG) Urine Nitrite NEG (NEG) Ur Leukocyte Esterase NEG (NEG) Discharge Plan Discharge Clinical Impression: Abdominal pain Patient Disposition: Home, Self-Care Instructions: Abdominal Pain (ED) Additional Instructions: Follow-up with gastroenterology for further evaluation Take pain medication as prescribed Prescriptions: New dicyclomine 20 mg tablet 20 mg PO QID PRN (Reason: abdominal pain) Qty: 20 RF: 0 No Action blood sugar diagnostic [FreeStyle Lite Strips] Strip 1 strip miscellaneous QID PRN (Reason: for diabetes mellitus) Qty: 150 RF: 11 blood-glucose meter [FreeStyle [place] Lite] Kit 1 ea miscellaneous DIRECTED Qty: 1 RF: 0 lancets [TRUEplus Lancets] 33 gauge misc 1 gauge miscellaneous QID Qty: 100 RF: 11 Lantus Solostar U-100 Insulin 100 unit/mL (3 mL) insulin pen 36 unit subcut DAILY Qty: 15 RF: 0 pen needle, diabetic [Pentips] 32 gauge x 5/32 needle See Rx Instructions .ROUTE .COMPLEX Qty: 200 RF: 11 polyethylene glycol 3350 [Miralax] 17 gram powder in packet 17 g PO BID Qty: 30 RF: 0 magnesium citrate Solution 300 ml PO DAILY PRN (Reason: constipation) Qty: 296 RF: 0 Fleet Enema 19-7 gram/118 mL enema 118 ml [place] DAILY PRN (Reason: constipation) Qty: 532 RF: 0 psyllium husk [Daily Fiber] 0.4 gram capsule 0.4 g PO BEDTIME PRN (Reason: constipation) Qty: 10 RF: 0 aspirin [Adult Low Dose Aspirin] 81 mg tablet,delayed release (DR/EC) 81 mg PO DAILY RF: 0 clopidogrel 75 mg tablet 75 mg PO DAILY RF: 0 carvedilol 3.125 mg tablet 3.125 mg PO BID RF: 0 lisinopril 2.5 mg tablet 2.5 mg PO DAILY RF: 0 isosorbide mononitrate 60 mg tablet extended release 24 hr 60 mg PO DAILY RF: 0 atorvastatin 80 mg tablet 80 mg PO DAILY RF: 0 melatonin 5 mg capsule See Rx Instructions PO ONCE RF: 0 gabapentin 800 mg tablet 800 mg PO BID RF: 0 ezetimibe [Zetia] 10 mg tablet 10 mg PO DAILY RF: 0 nitroglycerin 0.4 mg tablet, sublingual 0.4 mg sublingual Q5M PRN (Reason: angina pectoris) Qty: 30 RF: 5 pregabalin 100 mg capsule 100 mg PO RF: 0 oxybutynin chloride 10 mg tablet extended release 24hr 10 mg PO QAM RF: 0 metformin 500 mg tablet 1,000 mg PO BID Qty: 120 RF: 6 (DME) FreeStyle Alfredo 2 [place] Misc See Rx Instructions .ROUTE .MEDSUPPLY Qty: 1 RF: 0 (DME) FreeStyle Alfredo 2 Sensor Kit See Rx Instructions .ROUTE .MEDSUPPLY Qty: 2 RF: 11 insulin aspart U-100 [Novolog Flexpen U-100 Insulin] 100 unit/mL (3 mL) insulin pen See Rx Instructions subcut QID Qty: 30 RF: 2 PMFSH Past Medical History Medical History Atherosclerotic cardiovascular disease Cardiomyopathy Chronic HFrEF (heart failure with reduced ejection fraction) Essential hypertension Hepatitis B Hepatitis C History of pancreatitis Hyperlipidemia LDL goal <70 Ischemic cardiomyopathy Myocardial infarction Type 2 diabetes mellitus with diabetic polyneuropathy Type 2 diabetes mellitus with hyperglycemia, with long-term current use of insulin Surgical History H/O cardiac catheterization H/O coronary artery bypass surgery History of appendectomy Hx of heart artery stent Family History Family History Mother Diabetes Social History Social History Household Members: Spouse Alcohol intake: never Patient Tobacco Use Status: Never used Tobacco Advance Directives: No Advance Directives Information Provided: Yes
[2021-02-06 19:58] VITALS: BP 122/81; PULSE 66; RESP 18; TEMP 36.6; O2SAT 93
[2021-02-06 20:00] VITALS: BP 122/81; PULSE 64; RESP 20; TEMP 36.7; O2SAT 95
[2021-02-06] MEDS: Dicyclomine HCl 10 MG CAPSULE 20 MG PO (20:18)
== END 2021-02-06 20:57 | disposition home or self-care (01) ==
PROVIDERS: Emergency Provider Internal Medicine
DX: R10.9 Unspecified abdominal pain (principal); E11.42 Type 2 diabetes mellitus with diabetic polyneuropathy; I10 Essential (primary) hypertension; E78.5 Hyperlipidemia, unspecified; Z79.4 Long term (current) use of insulin
CPT/HCPCS: 36415; 80053; 81003; 83690; 85025; 99283; 99284

== ENCOUNTER 2021-02-11 11:16 | Emergency (ER) | payer MEDICAID, SELFPAY ==
--- NOTE | ~2021-02-11 | CT_ITS ---
EXAMINATION: CT ABDOMEN AND PELVIS WITHOUT CONTRAST CLINICAL INFORMATION: Suprapubic pain. Rule out diverticulitis. COMPARISON: Previous CT of the abdomen and pelvis most recent June 2020 TECHNIQUE: Multidetector volumetric imaging was performed from the superior aspect of the liver through the pubic symphysis. Sagittal and coronal reformatted images were obtained on the technologist's workstation. This CT examination was performed using dose optimization techniques as appropriate, variously including the following: *Automated exposure control *Adjustment of mA and/or kV according to patient size (this includes techniques or standardized protocols for targeted exams where dose is matched to indication/reason for exam; i.e. extremities or head) *Use of iterative reconstruction technique DLP: 531 mGy-cm FINDINGS: LUNG BASES: Atelectasis at the lung bases. Enlarged heart and post CABG changes. LIVER, GALLBLADDER, AND BILIARY TREE: The liver is normal in size, shape, and attenuation. No focal hepatic lesion or biliary ductal dilatation is present. The gallbladder is unremarkable with no evidence of radiopaque gallstones, gallbladder wall thickening, or obvious pericholecystic inflammatory changes. PANCREAS: Unremarkable. SPLEEN: Unremarkable. ADRENAL GLANDS: Unremarkable. KIDNEYS AND URETERS: Bilateral renal stones, 3 mm in the lower pole of the right kidney and 5 mm in the lower pole of the left kidney. No hydronephrosis. BLADDER: Unremarkable. GASTROINTESTINAL TRACT: The small and large bowel are unremarkable. The appendix is unremarkable. ABDOMINAL WALL: No significant hernia is appreciated. LYMPH NODES: Normal. VASCULAR: Unremarkable. PELVIC VISCERA: Unremarkable. OSSEOUS STRUCTURES: Unremarkable. CT/CT abdomen pelvis wo con IMPRESSION: Bilateral renal stones. No hydronephrosis.
[2021-02-11 11:18] VITALS: BP 134/80; PULSE 81; RESP 18; TEMP 36.7; O2SAT 97; BMI 26.5
--- NOTE | 2021-02-11 14:37 | ED_ITS ---
HPI - Abdominal Pain General Chief Complaint: Abdominal Pain Stated Complaint: lower abd and back pain Time Seen by Provider: 02/11/21 14:33 Source: patient Mode of arrival: ambulatory Limitations: no limitations History of Present Illness HPI narrative: abdominal pain since June, patient with a bladder infection back in June. Now with intermittent pain. Patient was seen on the and placed on dyclomine. Patient is a diabetic. Patient states that he had an infected kidney stone last time he had these symptoms MD elicited complaint: abdominal pain Pertinent past history: past UTI Onset (ago): month(s) Pain Consistency: intermittent Location: suprapubic Severity: moderate Radiation: other (testicles and penis) Migration to: suprapubic Associated symptoms: dysuria Related Data Home Medications Medication Instructions Recorded Confirmed aspirin 81 mg tablet,delayed 81 mg PO DAILY 04/11/20 01/01/21 release (Adult Low Dose Aspirin) atorvastatin 80 mg tablet 80 mg PO DAILY 04/11/20 01/01/21 carvedilol 3.125 mg tablet 3.125 mg PO BID 04/11/20 01/01/21 clopidogrel 75 mg tablet 75 mg PO DAILY 04/11/20 01/01/21 ezetimibe 10 mg tablet (Zetia) 10 mg PO DAILY 04/11/20 01/01/21 gabapentin 800 mg tablet 800 mg PO BID 04/11/20 01/01/21 isosorbide mononitrate 60 mg 60 mg PO DAILY 04/11/20 01/01/21 tablet,extended release 24 hr lisinopril 2.5 mg tablet 2.5 mg PO DAILY 04/11/20 01/01/21 melatonin 5 mg capsule See Rx Instructions PO ONCE cap 04/11/20 01/01/21 oxybutynin chloride 10 mg 10 mg PO QAM 12/19/20 01/01/21 tablet,extended release 24 hr pregabalin 100 mg capsule 100 mg PO 12/19/20 01/01/21 Previous Rx's Medication Instructions Recorded magnesium citrate 300 ml PO DAILY PRN #296 ml 02/28/20 polyethylene glycol 3350 17 gram 17 g PO BID #30 ea 02/28/20 oral powder packet (Miralax) sodium phosphates 19 gram-7 118 ml [place] DAILY PRN #532 ml 02/28/20 gram/118 mL enema (Fleet Enema) psyllium husk 0.4 gram capsule 0.4 g PO BEDTIME PRN #10 cap 07/09/20 (Daily Fiber) nitroglycerin 0.4 mg sublingual 0.4 mg SUBLINGUAL Q5M PRN #30 tab 07/24/20 tablet blood sugar diagnostic (FreeStyle 1 strip MISCELLANEOUS QID PRN #150 09/19/20 Lite Strips) strip blood-glucose meter (FreeStyle 1 ea MISCELLANEOUS DIRECTED #1 09/26/20 [place] Lite) kit lancets 33 gauge (TRUEplus Lancets) 1 gauge MISCELLANEOUS QID #100 ea 10/12/20 insulin glargine 100 unit/mL (3 36 unit SUBCUT DAILY #15 ml 12/29/20 mL) subcutaneous pen (Lantus Solostar U-100 Insulin) flash glucose scanning reader #1 ea 01/01/21 (FreeStyle Alfredo 2 [place]) flash glucose sensor (FreeStyle #2 ea 01/01/21 Alfredo 2 Sensor) metformin 500 mg tablet 1,000 mg PO BID #120 tab 01/01/21 pen needle, diabetic 32 gauge x See Rx Instructions .ROUTE 01/22/21 (Pentips) .COMPLEX #200 ea insulin aspart U-100 100 unit/mL See Rx Instructions SUBCUT QID #30 01/23/21 (3 mL) subcutaneous pen (Novolog ml Flexpen U-100 Insulin aspart) dicyclomine 20 mg tablet 20 mg PO QID PRN #20 tab 02/06/21 naproxen 500 mg tablet (Naprosyn) 500 mg PO BID #20 tab 02/11/21 Allergies Allergy/AdvReac Type Severity Reaction Status Date / Time No Known Allergies Allergy Verified 01/01/21 09:01 [No Known Allergies*] Review of Systems Constitutional: Reports no additional constitutional complaints Eyes: Reports no additional eye complaints Denies dizziness Cardiovascular: Reports no additional cardiovascular complaints Respiratory: Reports as per HPI Gastrointestinal: Reports no additional gastrointestinal complaints Musculoskeletal: Reports no additional musculoskeletal complaints Skin/Breast: Denies rash Reports system reviewed and no additional complaints, except as documented, Denies dizziness and Denies Sensory deficit (Neuro) Psychiatric: Denies anxiety Physical Exam Vital Signs: Vital Signs: Last Vital Signs Temp 98.1 F 02/11/21 11:18 Pulse 81 02/11/21 11:18 Resp 18 02/11/21 16:11 BP 134/80 02/11/21 11:18 Pulse Ox 97 02/11/21 11:18 Body Mass Index 26.5 Const: Other: male looking uncomfortable Nutritional Appearance: average body habitus Orientation/consciousness: oriented to person and patient oriented x3 Limitations: no limitations HENMT: Head: Yes normal to inspection Ears: external ears normal General nose exam: Normal external nose present Mouth: Normal oral and palatal mucosa present and oropharynx normal Throat: Yes posterior oropharynx normal Eyes: General: appearance normal, both eyes and all related structures Neck: Other: supple Neck: Yes normal visual inspection Chest: Chest palpation & inspection: normal inspection of the chest Resp: Auscultation: clear to auscultation bilaterally Cardio: Jugular venous distension: no JVD Rate: regular rate Rhythm: regular rhythm Heart sounds: S1 normal heart sound present and S2 normal heart sound present GI: Other: lower abdominal pain with guarding no rebound Auscultation: normal bowel sounds : General: Yes no CVA tenderness Back/Spine/Pelvis: Back: no CVA tenderness Skin: Other: ecchymosis from insulin shots General skin exam: no rashes or lesions noted Neuro: General: oriented to person and patient oriented x3 Cranial nerves: Yes CN's II-XII intact bilaterally Motor exam (neuro): 5/5 motor strength pr esent throughout Sensory Exam: No Sensory deficit (Neuro) Extrem: General: Yes normal to inspection Psych: Appearance: grossly normal Course Reevaluation(s) Reevaluation #1: CT showed no obstructing stones or infection, no post void residual. UA negative for infection will dc on NSAIDs Time: 16:18 MDM - Abdominal Pain Lab Data Result diagrams: 02/11/21 14:59 02/11/21 14:59 Labs: Lab Results 02/11/21 02/11/21 Range/Units 14:59 14:59 WBC 9.0 (4.8-10.8) X10*3/uL RBC 4.95 (4.60-5.80) X10*6/uL Hgb 15.5 (14.0-18.0) g/dl Hct 44.9 (42.0-52.0) % MCV 90.7 (80.0-98.0) fL MCH 31.3 (27.0-33.0) pg MCHC 34.5 (31.0-36.0) g/dl RDW 12.7 (11.0-16.0) % Plt Count 184 (160-400) X10*3/uL MPV 10.7 (9.4-12.4) fL Immature Gran % (Auto) 0.2 (0.0-0.4) % Neut % (Auto) 65.1 (45-73) % Lymph % (Auto) 22.7 (20-40) % [place] % (Auto) 8.2 (2-11) % Eos % (Auto) 3.5 (0-4) % Baso % (Auto) 0.3 (0-2) % Lymph # (Auto) 2.1 (1.2-4.9) X10*3/uL [place] # (Auto) 0.7 (0.1-1.2) X10*3/uL Eos # (Auto) 0.3 (0.0-0.4) X10*3/uL Baso # (Auto) 0.0 (0.0-0.2) X10*3/uL Abs Immat Gran (auto) 0.02 (0.00-0.03) X10*3/uL Absolute Neuts (auto) 5.87 (2.0-8.3) x10*3/uL Absolute Nucleated RBC 0.000 (0.0-0.012) X10*3/uL Nucleated RBC % (auto) 0.0 (0.0-0.2) /100WBC Sodium 142 (135-145) mmol/L Potassium 4.3 (3.3-5.1) mmol/L Chloride 110 H (96-108) mmol/L Carbon Dioxide 25 (22-29) mmol/L Anion Gap 11 L (12-20) BUN 20 H (9-16) mg/dL Creatinine 0.86 (0.5-1.4) mg/dL Estim Creat Clear Calc 93.8 Estimated GFR > 60 Random Glucose 78 D (60-115) mg/dL Calcium 9.0 (8.4-10.2) mg/dL Magnesium 2.0 (1.6-2.6) mg/dL Total Bilirubin 2.7 H (0.0-1.0) mg/dL Direct Bilirubin 0.7 H (0.0-0.5) mg/dL AST 23 (5-37) U/L ALT 26 (0-40) U/L Alkaline Phosphatase 120 H (39-117) U/L Total Protein 6.7 (6.5-8.0) g/dL Albumin 4.3 (3.5-5.0) g/dL Imaging Data CT scan - abdomen: Radiologist's impression: IMPRESSION: Bilateral renal stones. No hydronephrosis. Discharge Plan Discharge Clinical Impression: Abdominal pain Qualifiers: Abdominal location: lower abdomen, unspecified Qualified Code(s): R10.30 - Lower abdominal pain, unspecified Patient Disposition: Home, Self-Care Instructions: Abdominal Pain (ED) Prescriptions: New naproxen [Naprosyn] 500 mg tablet 500 mg PO BID Qty: 20 RF: 0 No Action blood sugar diagnostic [FreeStyle Lite Strips] Strip 1 strip miscellaneous QID PRN (Reason: for diabetes mellitus) Qty: 150 RF: 11 blood-glucose meter [FreeStyle [place] Lite] Kit 1 ea miscellaneous DIRECTED Qty: 1 RF: 0 lancets [TRUEplus Lancets] 33 gauge misc 1 gauge miscellaneous QID Qty: 100 RF: 11 Lantus Solostar U-100 Insulin 100 unit/mL (3 mL) insulin pen 36 unit subcut DAILY Qty: 15 RF: 0 pen needle, diabetic [Pentips] 32 gauge x 5/32 needle See Rx Instructions .ROUTE .COMPLEX Qty: 200 RF: 11 polyethylene glycol 3350 [Miralax] 17 gram powder in packet 17 g PO BID Qty: 30 RF: 0 magnesium citrate Solution 300 ml PO DAILY PRN (Reason: constipation) Qty: 296 RF: 0 Fleet Enema 19-7 gram/118 mL enema 118 ml [place] DAILY PRN (Reason: constipation) Qty: 532 RF: 0 psyllium husk [Daily Fiber] 0.4 gram capsule 0.4 g PO BEDTIME PRN (Reason: constipation) Qty: 10 RF: 0 dicyclomine 20 mg tablet 20 mg PO QID PRN (Reason: abdominal pain) Qty: 20 RF: 0 aspirin [Adult Low Dose Aspirin] 81 mg tablet,delayed release (DR/EC) 81 mg PO DAILY RF: 0 clopidogrel 75 mg tablet 75 mg PO DAILY RF: 0 carvedilol 3.125 mg tablet 3.125 mg PO BID RF: 0 lisinopril 2.5 mg tablet 2.5 mg PO DAILY RF: 0 isosorbide mononitrate 60 mg tablet extended release 24 hr 60 mg PO DAILY RF: 0 atorvastatin 80 mg tablet 80 mg PO DAILY RF: 0 melatonin 5 mg capsule See Rx Instructions PO ONCE RF: 0 gabapentin 800 mg tablet 800 mg PO BID RF: 0 ezetimibe [Zetia] 10 mg tablet 10 mg PO DAILY RF: 0 nitroglycerin 0.4 mg tablet, sublingual 0.4 mg sublingual Q5M PRN (Reason: angina pectoris) Qty: 30 RF: 5 pregabalin 100 mg capsule 100 mg PO RF: 0 oxybutynin chloride 10 mg tablet extended release 24hr 10 mg PO QAM RF: 0 metformin 500 mg tablet 1,000 mg PO BID Qty: 120 RF: 6 (DME) FreeStyle [place] 2 [place] Misc See Rx Instructions .ROUTE .MEDSUPPLY Qty: 1 RF: 0 (DME) FreeStyle Alfredo 2 Sensor Kit See Rx Instructions .ROUTE .MEDSUPPLY Qty: 2 RF: 11 insulin aspart U-100 [Novolog Flexpen U-100 Insulin] 100 unit/mL (3 mL) insulin pen See Rx Instructions subcut QID Qty: 30 RF: 2 Referrals: [place] [facility] [Primary Care Provider] - 1 week [facility] Past Medical History Medical History Atherosclerotic cardiovascular disease Cardiomyopathy Chronic HFrEF (heart failure with reduced ejection fraction) Essential hypertension Hepatitis B Hepatitis C History of pancreatitis Hyperlipidemia LDL goal <70 Ischemic cardiomyopathy Myocardial infarction Type 2 diabetes mellitus with diabetic polyneuropathy Type 2 diabetes mellitus with hyperglycemia, with long-term current use of insulin Surgical History H/O cardiac catheterization H/O coronary artery bypass surgery History of appendectomy Hx of heart artery stent Family History Family History Mother Diabetes Social History Social History Household Members: Spouse Alcohol intake: never Patient Tobacco Use Status: Never used Tobacco Advance Directives: No Advance Directives Information Provided: No
[2021-02-11] MEDS: 0.9 % Sodium Chloride 1,000 ML 999 ML IVCONT ×2 (15:01→16:38)
[2021-02-11] MEDS: Ketorolac Tromethamine 15 MG/ML VIAL 30 MG IVPUSH (15:05)
[2021-02-11 15:08] LABS: MANUAL DIFF FLAG NO
[2021-02-11 15:09] LABS: Basophils Percent Auto 0.3 % (0-2); Eosinophils Absolute Auto 0.3 X10*3/uL (0.0-0.4); Eosinophils Percent Auto 3.5 % (0-4); Hematocrit 44.9 % (42.0-52.0); Hemoglobin 15.5 g/dl (14.0-18.0); Imm Gran Abs Auto 0.02 X10*3/uL (0.00-0.03); Imm Gran Pct Auto 0.2 % (0.0-0.4); Lymphocytes Absolute Auto 2.1 X10*3/uL (1.2-4.9); Lymphocytes Percent Auto 22.7 % (20-40); Mean Corpuscular HGB Conc 34.5 g/dl (31.0-36.0); Mean Corpuscular Hemoglobin 31.3 pg (27.0-33.0); Mean Corpuscular Volume 90.7 fL (80.0-98.0); Mean Platelet Volume 10.7 fL (9.4-12.4); Monocytes Absolute Auto 0.7 X10*3/uL (0.1-1.2); Monocytes Percent Auto 8.2 % (2-11); Neutrophils Absolute Auto 5.87 x10*3/uL (2.0-8.3); Neutrophils Percent Auto 65.1 % (45-73); Platelet Count 184 X10*3/uL (160-400); Red Blood Count 4.95 X10*6/uL (4.60-5.80); Red Cell Distribution Width 12.7 % (11.0-16.0)
[2021-02-11 15:28] LABS: Alanine Aminotransferase 26 U/L (0-40); Albumin Level 4.3 g/dL (3.5-5.0); Alkaline Phosphatase 120 U/L (39-117); Anion Gap 11 (12-20); Aspartate Amino Transferase 23 U/L (5-37); Bilirubin Direct 0.7 mg/dL (0.0-0.5); Bilirubin Total 2.7 mg/dL (0.0-1.0); Blood Urea Nitrogen 20 mg/dL (9-16); Carbon Dioxide 25 mmol/L (22-29); Chloride 110 mmol/L (96-108); Creatinine Clr Calc Pharmacy 93.8; Estimated Glomerular Filt Rate > 60; Glucose Random 78 mg/dL (60-115); Potassium 4.3 mmol/L (3.3-5.1); Sodium 142 mmol/L (135-145); Total Protein 6.7 g/dL (6.5-8.0)
[2021-02-11 16:11] VITALS: RESP 18
[2021-02-11 16:30] LABS: Appearance Urine CLEAR; Color Urine YELLOW; Glucose Urine UA NEG (NEG); Leukocyte Esterase Urine NEG (NEG); Nitrite Urine NEG (NEG); PH 5.5 (5.0-8.0); Specific Gravity - Urine >= 1.030 (1.005-1.025); Urine Blood NEG (NEG); Urine Ketones NEG (NEG); Urine Protein NEG (NEG-TRACE)
== END 2021-02-11 16:53 | disposition home or self-care (01) ==
PROVIDERS: Nurse Practitioner Family; Emergency Provider Emergency Medicine
DX: R10.30 Lower abdominal pain, unspecified (principal); E11.9 Type 2 diabetes mellitus without complications; I10 Essential (primary) hypertension; E78.5 Hyperlipidemia, unspecified; Z79.899 Other long term (current) drug therapy; Z79.4 Long term (current) use of insulin
CPT/HCPCS: 36415; 51798; 74176; 80048; 80076; 81003; 83735; 85025; 96361; 96374; 99284; J1885

== ENCOUNTER → 2021-05-07 08:15 | Outpatient (BNVA) | payer MEDICAID, SELFPAY | PROVIDERS: PCP Registered Nurse Community Health; Visit Provider Nurse Practitioner Gerontology | DX: E11.65 Type 2 diabetes mellitus with hyperglycemia (principal); E11.42 Type 2 diabetes mellitus with diabetic polyneuropathy; E78.5 Hyperlipidemia, unspecified; I10 Essential (primary) hypertension; Z79.4 Long term (current) use of insulin | CPT/HCPCS: 36415; 80053; 80061; 82043; 82607; 82947; 83036; 83721 ==

== ENCOUNTER 2021-05-07 09:07 | Outpatient (REF) | payer MEDICAID, SELFPAY ==
[2021-05-07 10:56] LABS: Creatinine Urine 216.22 mg/dL; Microalbum/Creatinine Ratio Ur 8.3 ug/mg cr
[2021-05-07 10:59] LABS: Alanine Aminotransferase 23 U/L (0-40); Albumin Level 4.4 g/dL (3.5-5.0); Alkaline Phosphatase 109 U/L (39-117); Anion Gap 12 (12-20); Aspartate Amino Transferase 21 U/L (5-37); Blood Urea Nitrogen 23 mg/dL (9-16); Calcium 9.1 mg/dL (8.4-10.2); Carbon Dioxide 25 mmol/L (22-29); Chloride 109 mmol/L (96-108); Cholesterol 113 mg/dL; Estimated Glomerular Filt Rate > 60; Glucose Random 101 mg/dL (60-115); HDL Cholesterol 27 mg/dL; LDL Cholesterol Calculated 71 mg/dl; Potassium 3.9 mmol/L (3.3-5.1); Sodium 142 mmol/L (135-145); Total Protein 6.9 g/dL (6.5-8.0); Triglycerides 77 mg/dL
[2021-05-07 11:35] LABS: Vitamin B12 221 pg/mL (200-900)
[2021-05-08 14:17] LABS: LDL Cholesterol Direct 70 mg/dL (<100)
== END 2021-05-07 09:08 | disposition home or self-care (01) ==
LOC: HO.10HDL 09:07
PROVIDERS: Visit Provider Nurse Practitioner Gerontology
DX: E11.65 Type 2 diabetes mellitus with hyperglycemia (principal); Z79.4 Long term (current) use of insulin
CPT/HCPCS: 36415; 80053; 80061; 82043; 82607; 83721

== ENCOUNTER → 2021-06-25 14:46 | Outpatient (BNVA) | payer MEDICAID, SELFPAY | PROVIDERS: PCP Registered Nurse Community Health; Referring Provider Registered Nurse Community Health; Visit Provider Internal Medicine | DX: I25.10 Atherosclerotic heart disease of native coronary artery without angina pectoris (principal); I25.5 Ischemic cardiomyopathy; R07.2 Precordial pain; E78.5 Hyperlipidemia, unspecified; E11.65 Type 2 diabetes mellitus with hyperglycemia; Z79.4 Long term (current) use of insulin | CPT/HCPCS: 93005; 99212 ==

== ENCOUNTER 2021-07-02 12:04 | Outpatient (REF) | payer MEDICAID, SELFPAY ==
--- NOTE | ~2021-07-02 | XR_ITS ---
EXAMINATION: XR HIP, LEFT CLINICAL INFORMATION: Pain COMPARISON: Previous x-ray June 2019 TECHNIQUE: Two views of the left hip. FINDINGS: Bone alignment is normal. No fracture or dislocation is seen. There is mild arthritis at the left hip joint with joint space narrowing and osteophyte formation. This is similar to previous exam. Soft tissues are unremarkable. XR/XR hip LT min 2V IMPRESSION: Mild left hip arthritis.
== END 2021-07-02 12:05 | disposition home or self-care (01) ==
LOC: HO.XRAY 12:04
PROVIDERS: PCP Registered Nurse Community Health; Visit Provider Registered Nurse Community Health
DX: M25.552 Pain in left hip (principal)
CPT/HCPCS: 73502

== ENCOUNTER 2021-07-11 15:37 | Outpatient (AMB) | payer MEDICAID, SELFPAY ==
--- NOTE | 2021-07-11 15:39 | MHC.OFFVIS ---
Intake Intake Visit Reasons: F/U Scrotal Pain (no show 01/30/21.) Intake Note: patient is present for follow up Access Database Developer Required: Yes Access Database Developer Name: [email or web address] Information Interpreted: non-clinical & clinical Accompanied by: Self / Same As Patient Allergies No Known Allergies [No Known Allergies*] Allergy (Verified 06/10/23 09:26) HPI HPI Comments History of Present Illness Details Barrett is a pleasant Irish-speaking male. He is a patient of Dr. Basilio. He is seen for following urologic conditions - lower urinary tract symptoms - erectile dysfunction - background diabetes with long-term insulin use Lower urinary tract symptoms History of incomplete bladder emptying with weakness of stream Previously seen at [facility] for urinary retention with 600 cc and Bender catheter use in 2022 Managed with doxazosin 4 mg daily, finasteride initiated at time of retention Bladder volume is 235 mL. Postvoid bladder volume is 35.5 mL. Prostate volume 35.6 mL. PFSH Medical History Ischemic cardiomyopathy Atherosclerotic cardiovascular disease History of pancreatitis Hepatitis B Hepatitis C Chronic HFrEF (heart failure with reduced ejection fraction) Cardiomyopathy Type 2 diabetes mellitus with hyperglycemia, with long-term current use of insulin Type 2 diabetes mellitus with diabetic polyneuropathy Hyperlipidemia LDL goal <70 Essential hypertension Myocardial infarction Surgical History Hx of colonoscopy History of appendectomy Hx of heart artery stent H/O coronary artery bypass surgery H/O cardiac catheterization Family History Mother Diabetes Social History Household Members: Spouse Alcohol intake: never Patient Tobacco Use Status: Never used Tobacco Smoked in Last 30 Days: No Use of substances other than those prescribed or required for medical reasons: No Advance Directives: No Advance Directives Information Provided: Yes Current occupational status: unemployed Review of Systems Const Denies chills and Denies fever(s) Card Reports no additional complaints and Denies syncope Resp Denies cough GI Denies abdominal pain and Denies heartburn Reports as per HPI and Denies change in libido Neuro Denies syncope Psych Denies change in libido Endo Denies change in libido Physical Exam Const General: cooperative, healthy appearing, comfortable and no acute distress Orientation/consciousness: patient oriented x3 HEENT Face and sinus: Yes normal facial exam Mouth: moist mucous membranes Neck Neck: Yes normal visual inspection, Yes full ROM and Yes trachea midline Chest Chest palpation & inspection: normal inspection of the chest Resp Effort & Inspection: normal respiratory effort, able to speak in complete sentences and no respiratory distress GI Inspection: Yes normal to inspection Back/Spine/Pelvis Cervical Spine: normal cervical lordosis Thoracic/Lumbar Spine: thoracic and lumbar spine normal to inspection Skin General skin exam: no rashes or lesions noted Neuro General: patient oriented x3, gait normal, tone normal and moves all extremities Extrem General: Yes normal to inspection and Yes capillary refill normal Results AMB Urinalysis, Automated UA Leukoctes 0 Keri/uL Last Edit by Barrett Alvarez on 07/11/21 15:45 UA Nitrite Negative Last Edit by Barrett Alvarez on 07/11/21 15:45 UA Urobilinogen 0.2 mg/dL Last Edit by Barrett Alvarez on 07/11/21 15:45 UA Protein 15 mg/dL Last Edit by Barrett Alvarez on 07/11/21 15:45 UA pH 6.0 Last Edit by Barrett Alvarez on 07/11/21 15:45 UA Blood 0 Jarett/uL Last Edit by Barrett Alvarez on 07/11/21 15:45 UA Specific [place] 1.030 Last Edit by Barrett Alvarez on 07/11/21 15:45 UA Ketone Negative Last Edit by Barrett Alvarez on 07/11/21 15:45 UA Bilirubin 0 mg/dL Last Edit by Barrett Alvarez on 07/11/21 15:45 UA Glucose 100 mg/dL Last Edit by Barrett Alvarez on 07/11/21 15:45 Results Reviewed Results Reviewed: Laboratory Last Values Urine pH (Auto) 6.0 07/11/21 15:40 Specific [place] (Auto) 1.030 07/11/21 15:40 Urine Protein (Auto) 15 mg/dL 07/11/21 15:40 Glucose (UA)(Auto) 100 mg/dL 07/11/21 15:40 Urine Ketones (Auto) Negative 07/11/21 15:40 Urine Blood (Auto) 0 Jarett/uL 07/11/21 15:40 Urine Nitrite (Auto) Negative 07/11/21 15:40 Urine Bilirubin (Auto) 0 mg/dL 07/11/21 15:40 Urine Urobilinogen (Auto) 0.2 mg/dL 07/11/21 15:40 Leukocyte Esterase (Auto) 0 Keri/uL 07/11/21 15:40 Assessment & Plan Assessment & Plan (1) Type 2 diabetes mellitus with diabetic polyneuropathy: Code(s): E11.42 - Type 2 diabetes mellitus with diabetic polyneuropathy Qualifiers: 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 use Qualified Code(s): E11.42 - Type 2 diabetes mellitus with diabetic polyneuropathy; Z79.4 - [facility]CI (current) use of insulin (2) Calcium oxalate calculus: Code(s): E83.59 - Other disorders of calcium metabolism (3) Bladder outlet obstruction: Code(s): N32.0 - Bladder-neck obstruction (4) Urinary urgency: Code(s): R39.15 - Urgency of urination Plan 2 m f/u Orders: Orders AMB Urinalysis Automated 07/11/21 Z13.9 - Encounter for screening, unspecified Medications: New doxazosin 4 mg PO BEDTIME 90 tabs 1RF 90 days N32.0 - Bladder-neck obstruction, N40.1 - Benign prostatic hyperplasia with lower urinary tract symptoms, N13.8 - Other obstructive and reflux uropathy potassium citrate ER 20 mEq (2 x 10 mEq (1,080 mg)) PO BID 360 tabs 1RF 90 days E83.59 - Other disorders of calcium metabolism, N20.0 - Calculus of kidney Patient Instructions: Imaging studies, laboratory and physical exam results were discussed and reviewed in detail. No major barriers to patient understanding were identified. An opportunity to ask questions regarding the treatment plan was provided. All questions were answered. The patient expressed understanding and agreement with the above treatment plan. The patient is aware they should contact our office by phone for worsening of their current condition or the appearance of new urologic symptoms. Compliance is encouraged with any medications and followup testing that is ordered. It is a privilege to participate in the urologic care of your patient. If you have any questions or concerns regarding treatment for the above conditions, or other urologic issues, please do not hesitate to contact me. The office telephone contact is [phone]. This note is constructed using voice recognition software. While every effort has been made to ensure accuracy shoulder pad molder errors may have been included. 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
== END 2021-07-11 16:22 | disposition home or self-care (01) ==
LOC: HO.HUSH 15:37
PROVIDERS: Visit Provider Urology
DX: E11.42 Type 2 diabetes mellitus with diabetic polyneuropathy (principal); Z79.4 Long term (current) use of insulin; E83.59 Other disorders of calcium metabolism; N32.0 Bladder-neck obstruction; R39.15 Urgency of urination
CPT/HCPCS: 99499

== ENCOUNTER → 2021-07-11 15:37 | Outpatient (BNVA) | payer MEDICAID, SELFPAY | PROVIDERS: Visit Provider Urology | DX: Z13.89 Encounter for screening for other disorder (principal) | CPT/HCPCS: 99212 ==

== ENCOUNTER → 2021-07-17 09:52 | Outpatient (REF) | payer MEDICAID, SELFPAY ==
--- NOTE | ~2021-07-17 | NM_ITS ---
Lexiscan Myocardial perfusion study Indication: Chest pain, assess for coronary disease and ischemia Technique: The patient was brought in for a Lexiscan perfusion study on 07/17/2021 and was injected 0.4 mg of Lexiscan intravenously. Within a minute of this injection 30 mCi of sestamibi was given intravenously. Images were obtained using the SPECT gamma camera interlaced with the gating device. Images were obtained in supine position. Resting perfusion study was performed on 07/18/2021. Patient was administered 30 mCi of sestamibi intravenously at rest. Images were then obtained in supine position. Total DLP 87mGy-cm. Images were processed with the software and compared side to side in short axis, horizontal long axis and vertical long axis views. Findings: Raw acquisition was reviewed. The stress perfusion study showed markedly reduced tracer uptake along the inferior wall, parts of inferolateral wall as well as mild to moderately reduced tracer uptake in the lateral wall there is some improvement in the lateral wall with CT attenuation correction but the inferior wall defect still persists. The gated study shows reduced LV systolic function with calculated LVEF of 36%. LV cavity is normal in size. The gated study shows inferior akinesis. Resting study shows diminished tracer uptake along the inferior wall with slight improvement compared to the stress acquisition; there is also reduced uptake in the lateral wall/inferolateral wall. Gating at rest reveals reduced contractility in the inferior wall, inferolateral wall, basal lateral wall with ejection fraction at 34%. The findings are consistent with mostly fixed defect in the inferior wall, basal part of inferolateral wall, adjacent lateral wall with minimal reversibility. NM/NM cardiolite stress test Impression: 1. Myocardial perfusion imaging study shows mostly infarct pattern in the inferior wall, basal inferolateral wall, basal lateral wall with minimal ischemia towards the inferior wall. 2. Gated LVEF is 36% during stress and 34% during rest. 3. Transient ischemic dilatation not present. EKG component of the test reported separately.
--- NOTE | 2021-07-17 09:59 | CA_ITS ---
Acquisition Time: 2021-07-17 10:10:49 Total Exercise Time: 00:05:22 Test Indications: Dyspnea Medications: ASA ATORVASTATIN CARVEDILOL DICYCLOMINE GABAPENTIN ISOSORBIDE LISINOPRIL NAPROXEN Protocol: MANSI Max HR: 129 BPM 78% of Pred: 164 BPM Max BP: 128/080 mmHG Max Work Load: 7.0 METS Exercise stress test with exercise 5 min 22 sec of Mansi protocol, achieving 64% MPHR with report of 8/10 chest discomfort, moderate shortness of breath and request to stop, without EKG changes. He was assisted to recliner and allowed to rest. Chest discomfort improved and resolved by 10 min recovery. Testing changed to a pharmacological stress test with Lexiscan injection, while sitting and kicking his legs, with nausea, dry heaves, shortness of breath and recurrent chest discomfort post injection, with isolated PVC, with normotensive response to injection, with nondiagnostic EKG for ischemia. In recovery he was treated with Aminophylline 75mg IVP to reverse Lexiscan with resolution of symptoms. Nuclear images pending. Test reviewed with Dr Esteves. Referred By: Narinder Esteves Overread By: TAMAR KAUR
== END ==
LOC: HO.CARD 09:52
PROVIDERS: Visit Provider Internal Medicine
DX: R07.2 Precordial pain (principal)
CPT/HCPCS: 78452; 93017; A9500; J0280; J2785

== ENCOUNTER → 2021-08-02 11:13 | Outpatient (BNVA) | payer MEDICAID, SELFPAY | PROVIDERS: PCP Registered Nurse Community Health; Visit Provider Internal Medicine | DX: I25.10 Atherosclerotic heart disease of native coronary artery without angina pectoris (principal); I25.5 Ischemic cardiomyopathy; E78.5 Hyperlipidemia, unspecified; E11.65 Type 2 diabetes mellitus with hyperglycemia; Z79.4 Long term (current) use of insulin | CPT/HCPCS: 99212 ==

== ENCOUNTER 2021-08-06 08:02 | Outpatient (REF) | payer MEDICAID, SELFPAY ==
[2021-08-06 08:48] LABS: Hemoglobin 14.2 g/dl (14.0-18.0); Mean Corpuscular Hemoglobin 30.3 pg (27.0-33.0); Mean Corpuscular Volume 91.7 fL (80.0-98.0); Platelet Count 172 X10*3/uL (160-400); Red Blood Count 4.69 X10*6/uL (4.60-5.80); Red Cell Distribution Width 13.2 % (11.0-16.0)
[2021-08-06 08:56] LABS: Prothrombin Time 11.2 SEC (9.9-13.0)
[2021-08-06 09:25] LABS: Anion Gap 10 (12-20); Blood Urea Nitrogen 20 mg/dL (9-16); Carbon Dioxide 27 mmol/L (22-29); Chloride 105 mmol/L (96-108); Estimated Glomerular Filt Rate > 60; Glucose Random 154 mg/dL (60-115); Potassium 4.3 mmol/L (3.3-5.1); Sodium 138 mmol/L (135-145)
[2021-08-06 09:49] LABS: Microalbum/Creatinine Ratio Ur 8.5 ug/mg cr
[2021-08-06 10:08] LABS: Vitamin B12 158 pg/mL (200-900)
[2021-08-08 03:12] LABS: LDL Cholesterol Direct 62 mg/dL (<100)
== END 2021-08-06 08:03 | disposition home or self-care (01) ==
LOC: HO.LAB 08:02
PROVIDERS: Nurse Practitioner Gerontology; PCP Registered Nurse Community Health; Visit Provider Internal Medicine
DX: E11.42 Type 2 diabetes mellitus with diabetic polyneuropathy (principal); E11.65 Type 2 diabetes mellitus with hyperglycemia; M25.10 Fistula, unspecified joint; E78.5 Hyperlipidemia, unspecified; E53.8 Deficiency of other specified B group vitamins; I10 Essential (primary) hypertension; Z79.4 Long term (current) use of insulin
CPT/HCPCS: 36415; 80048; 82043; 82607; 82947; 83036; 83721; 85027; 85610; 99212

== ENCOUNTER → 2021-08-07 13:11 | Outpatient (REF) | payer MEDICAID, SELFPAY ==
--- NOTE | 2021-08-07 13:13 | CA_ITS ---
Transthoracic Echocardiogram Patient (Last, First, Middle): Barrett Goldman A Gender: Male Date of : 1965 Age: 56 Procedure Date: 08/07/2021 Procedure Type: Transthoracic Echocardiogram Location: OP Height: 172.72 cm Weight: 78.47 kg BSA: 1.92 m2 Heart Rate: bpm BP: 122 / 60 mmHg Brancher: Referring MD: Narinder Esteves MD Symptoms: I25.10 - Atherosclerotic heart disease of [place] coronary... Study Quality: Fair ECG Rhythm: Sinus Conclusions: - The left ventricular systolic function is mildly decreased. The calculated ejection fraction is 47% by biplane method. - The basal inferior, mid inferior, and mid inferolateral segments are akinetic. - The basal inferolateral segment is hypokinetic. - There is mildly decreased right ventricular systolic function. - No obvious valvular pathology seen on this study. Findings Left Ventricle Normal left ventricular cavity size. There is normal left ventricular wall thickness. The left ventricular systolic function is mildly decreased. The calculated ejection fraction is 47% by biplane method. There is evidence of regional wall motion abnormalities. E/E prime ratio is between 8 and 15 consistent with indeterminate filling pressures. Evidence suggests grade I (mild) diastolic dysfunction. Wall Motion Rest Echo Findings The basal inferolateral segment is hypokinetic. The basal inferior, mid inferior, and mid inferolateral segments are akinetic. Right Ventricle Normal right ventricular cavity size. There is mildly decreased right ventricular systolic function. Atria The left atrium is mildly dilated. The right atrium is normal in size. Aortic Valve There is a normal trileaflet aortic valve. There is no aortic valve stenosis. There is no aortic valve regurgitation. Mitral Valve The mitral valve appears normal. There is trace mitral valve regurgitation. There is no mitral valve stenosis. Pulmonic Valve The pulmonic valve is likely normal. Tricuspid Valve Normal tricuspid valve structure. There is trace tricuspid valve regurgitation. The pulmonary artery systolic pressure is normal. Great Vessels The aortic annulus, sinuses of valsalva, sino tubular ridge, and asc aorta are normal in size. Venous The inferior vena cava is normal in size and collapses greater than 50% with inspiration. Pericardium/Pleural There is no evidence of pericardial effusion. Prior Study Comparison No significant change compared to prior study dated: 12/14/2019. Recommendations, Care & Conclusions No obvious valvular pathology seen on this study. Measurements 2D Linear Measurements IVSd: 0.97 0.6-0.9/0.6-1.0 cm LVIDd: 5.10 3.9-5.3/4.2-5.9 cm LVIDd Index: 2.66 2.4-3.2/2.2-3.1 cm/m2 LVIDs: 4.23 2.0-3.6 cm LVPWd: 1.07 0.7-1.1 cm Ao Root: 3.40 2.1-3.5 cm LA Diam: 3.90 2.7-3.8/3.0-4.0 cm LAIDs Index: 2.03 1.5-2.3 cm/m2 LV Mass: 239.80 67-162/88-224 g LV Mass Index: 124.90 43-95/49-115 g/m2 LVOT Diam: 2.40 3.0+(-)1.3 cm 2D Systolic Function EF 4C: 51.20 >55% EF 2C: 40.20 >55% EF BiP: 47.10 >55% Mitral Valve MV Pk E: 0.79 MV PK A: 0.75 MV Decel Time: 194.00 E/A: 1.10 E'Lateral: 12.90 E'Medial: 4.35 E/E' Med: 18.20 E/E' Lat: 6.10 PHT: 57.00 MVA PHT: 3.86 Decel Campbell: 4.09 Aortic Valve AoV Pk Fareed: 1.25 AoV Mn Fareed: 0.87 AoV VTI: 0.29 AoV Pk Grad: 6.00 Aov Mn Grad: 4.00 SAE Cont.VTI: 2.95 LVOT LVOT Pk Fareed: 0.85 LVOT Mn Fareed: 0.55 LVOT VTI: 0.19 LVOT Pk Grad: 3.00 LVOT Mn Grad: 1.00 LVOT Diam: 2.40 LVOT Area: 4.52 Diastolic Function MV Pk E: 0.79 MV Pk A: 0.75 E/A: 1.10 E'Medial: 4.35 E/E' Med: 18.20 E' Laterial: 12.90 E/E' Lat: 6.10 Right Ventricle TAPSE (mm): 17.00 TVS' Fareed: 8.00 Tricuspid Valve TR Pk Fareed: 1.51 TR Pk Grad: 9.00 RA Press: 3.00 RVSP: 12.00 Great Vessels Aorta Ao Root-2D: 3.40 2.0-3.7 cm Ao Asc: 3.30 2.1-3.4 cm Pulmonary Valve PV Pk Fareed: 0.83 Peak PV Grad: 3.00 Updated in Other Vendor System with Status of Final Narinder Esteves MD electronically signed on 08/08/2021 11:07:07 AM with status of Final
== END ==
LOC: HO.CARD 13:11
PROVIDERS: PCP Registered Nurse Community Health; Visit Provider Internal Medicine
DX: I25.10 Atherosclerotic heart disease of native coronary artery without angina pectoris (principal); R07.2 Precordial pain
CPT/HCPCS: 93306

== ENCOUNTER → 2021-08-21 11:11 | Outpatient (BNVA) | payer MEDICAID, SELFPAY | PROVIDERS: PCP Registered Nurse Community Health; Referring Provider Registered Nurse Community Health; Visit Provider Internal Medicine | DX: I25.10 Atherosclerotic heart disease of native coronary artery without angina pectoris (principal); I25.5 Ischemic cardiomyopathy; E11.65 Type 2 diabetes mellitus with hyperglycemia; E78.5 Hyperlipidemia, unspecified; Z79.4 Long term (current) use of insulin | CPT/HCPCS: 99212 ==

== ENCOUNTER 2021-09-02 08:08 | Emergency (ER) | payer MEDICAID, SELFPAY ==
[2021-09-02 09:02] VITALS: BP 111/68; PULSE 78; RESP 16; TEMP 36.1; O2SAT 98; BMI 24.9
--- NOTE | 2021-09-02 11:16 | ED.GENADULT ---
HPI - General Adult General Chief complaint: Eye Problems Stated complaint: FO in L eye Time Seen by Provider: 09/02/21 09:11 Source: patient Mode of arrival: ambulatory Limitations: no limitations History of Present Illness HPI narrative: Patient is a 56 year old male presenting to the emergency department today with a foreign body in his left eye. Patient states that a few days ago he was cleaning out his car when something flew up and landed in his left eye. Patient states that he still feels like something is there. Patient denies any dizziness, lightheadedness, abdominal pain, nausea, vomiting, fever, chills, blurry vision, double vision, loss of vision, chest pain, difficulty breathing, shortness of breath, back pain, night sweats, pain with urination, increased urinary frequency, increased urinary urgency, blood in his urine or stool, syncope or a near syncopal episode, recent trauma or falls, bowel incontinence, bladder incontinence, bowel retention, bladder retention, or any other complaints at this time. Onset (ago): day(s) Severity: mild Severity scale (1-10): 3 Quality: dull Pain Consistency: constant Relieving factors: none Exacerbating factors: none Associated symptoms: denies other symptoms Treatments prior to arrival: none Related Data Home Medications Medication Instructions Recorded Confirmed aspirin 81 mg tablet,delayed 81 mg PO DAILY 04/11/20 08/21/21 release (Adult Low Dose Aspirin) atorvastatin 80 mg tablet 80 mg PO DAILY 04/11/20 08/21/21 carvedilol 3.125 mg tablet 3.125 mg PO BID 04/11/20 08/21/21 clopidogrel 75 mg tablet 75 mg PO DAILY 04/11/20 08/21/21 ezetimibe 10 mg tablet (Zetia) 10 mg PO DAILY 04/11/20 08/21/21 gabapentin 800 mg tablet 800 mg PO BID 04/11/20 08/21/21 isosorbide mononitrate 60 mg 60 mg PO DAILY 04/11/20 08/21/21 tablet,extended release 24 hr lisinopril 2.5 mg tablet 2.5 mg PO DAILY 04/11/20 08/21/21 melatonin 5 mg capsule See Rx Instructions PO ONCE cap 04/11/20 08/21/21 pregabalin 100 mg capsule 100 mg PO 12/19/20 08/21/21 ammonium lactate 12 % topical cream appl TOPICAL BID 03/30/22 05/10/22 Previous Rx's Medication Instructions Recorded magnesium citrate 300 ml PO DAILY PRN #296 ml 02/28/20 polyethylene glycol 3350 17 gram 17 g PO BID #30 ea 02/28/20 oral powder packet (Miralax) psyllium husk 0.4 gram capsule 0.4 g PO BEDTIME PRN #10 cap 07/09/20 (Daily Fiber) nitroglycerin 0.4 mg sublingual 0.4 mg SUBLINGUAL Q5M PRN #30 tab 07/24/20 tablet blood sugar diagnostic (FreeStyle 1 strip MISCELLANEOUS QID PRN #150 09/19/20 Lite Strips) strip blood-glucose meter (FreeStyle 1 ea MISCELLANEOUS DIRECTED #1 09/26/20 [place] Lite) kit lancets 33 gauge (TRUEplus Lancets) 1 gauge MISCELLANEOUS QID #100 ea 10/12/20 flash glucose scanning reader #1 ea 01/01/21 (FreeStyle Alfredo 2 [place]) flash glucose sensor (FreeStyle #2 ea 01/01/21 Alfredo 2 Sensor) pen needle, diabetic 32 gauge x See Rx Instructions .ROUTE 01/22/21 (Pentips) .COMPLEX #200 ea dicyclomine 20 mg tablet 20 mg PO QID PRN #20 tab 02/06/21 naproxen 500 mg tablet (Naprosyn) 500 mg PO BID #20 tab 02/11/21 insulin aspart U-100 100 unit/mL See Rx Instructions SUBCUT QID #30 05/07/21 (3 mL) subcutaneous pen (Novolog ml Flexpen U-100 Insulin aspart) ranolazine 500 mg tablet,extended 500 mg PO BID 90 Days #180 tab 06/25/21 release,12 hr (Ranexa) metformin 500 mg tablet 1,000 mg PO BID 30 Days #120 tab 07/09/21 doxazosin 4 mg tablet 4 mg PO BEDTIME 90 Days #90 tab 07/11/21 potassium citrate 10 mEq (1,080 20 meq PO BID 90 Days #360 tab 07/11/21 mg) tablet,extended release insulin glargine 100 unit/mL (3 30 unit (0.3 mL) SUBCUT DAILY #15 08/06/21 mL) subcutaneous pen (Lantus ml Solostar U-100 Insulin) furosemide 20 mg tablet (Lasix) 20 mg PO DAILY 90 Days #90 tab 08/13/21 erythromycin 5 mg/gram (0.5 %) eye 0.5 inch OPHTHALMIC (EYE) Q6H 5 09/02/21 ointment Days #3.5 g Allergies Allergy/AdvReac Type Severity Reaction Status Date / Time No Known Allergies Allergy Verified 08/21/21 11:28 [No Known Allergies*] Review of Systems Constitutional: Constitutional: Reports no additional constitutional complaints, Denies chills, Denies fever(s) and Denies night sweats Eyes: Eyes: Reports no additional eye complaints, Denies blurry vision, Denies change in vision, Denies diplopia, Denies eye discharge, Denies loss of vision and Reports eye pain ENT: Denies dizziness Cardiovascular: Cardiovascular: Reports no additional cardiovascular complaints, Denies chest pain, Denies lightheadedness, Denies Loss of Consciousness and Denies dyspnea Respiratory: Respiratory: Reports no additional respiratory complaints and Denies dyspnea Gastrointestinal: Gastrointestinal: Reports no additional gastrointestinal complaints, Denies abdominal pain, Denies melena, Denies hematochezia, Denies change in bowel habits and Denies change in stool character Genitourinary: Genitourinary: Reports no additional male genitourinary complaints, Denies hematuria, Denies oliguria, Denies difficulty urinating, Denies dysuria, Denies urinary frequency, Denies urinary hesitancy, Denies urinary incontinence and Denies urinary urgency Musculoskeletal: Musculoskeletal: Reports no additional musculoskeletal complaints, Denies numbness and Denies tingling Neurologic: Denies dizziness, Denies loss of vision, Denies numbness and Denies tingling Psychiatric: Psychiatric: Reports no additional psychiatric complaints Endocrine: Endocrine: Reports no additional endocrine complaints Hematologic/Lymphatic: Hematologic/Lymphatic: Reports no additional hematologic/lymphatic complaints Allergic/Immunologic: Allergic/Immunologic: Reports no additional allergic/immunologic complaints PMFSH Past Medical History Attestation statement: The following information was validated with the patient. Source: old records reviewed Medical History Atherosclerotic cardiovascular disease Cardiomyopathy Chronic HFrEF (heart failure with reduced ejection fraction) Essential hypertension Hepatitis B Hepatitis C History of pancreatitis Hyperlipidemia LDL goal <70 Ischemic cardiomyopathy Myocardial infarction Type 2 diabetes mellitus with diabetic polyneuropathy Type 2 diabetes mellitus with hyperglycemia, with long-term current use of insulin Surgical History H/O cardiac catheterization H/O coronary artery bypass surgery History of appendectomy Hx of heart artery stent Family History Family History Mother Diabetes Social History Social History Household Members: Spouse Alcohol intake: never Patient Tobacco Use Status: Never used Tobacco Advance Directives: No Advance Directives Information Provided: No Physical Exam ED Vital Signs: Vital Signs - 24 hr 09/02/21 09:02 Temperature 97.0 F Pulse Rate 78 Respiratory Rate 16 Blood Pressure 111/68 Pulse Oximetry 98 BMI result Body Mass Index 24.9 Const General: cooperative, no acute distress, alert and awake Nutritional Appearance: well nourished Orientation/consciousness: patient oriented x3 Limitations: no limitations HENMT Head: Yes normal to inspection and Yes atraumatic Ears: hearing grossly normal bilaterally and external ears normal General nose exam: Normal external nose present, no nasal discharge noted and no epistaxis Face and sinus: Yes normal facial exam, No abrasion and No laceration Mouth: Normal oral and palatal mucosa present, no drooling and no muffled voice Eyes General: appearance normal, both eyes and all related structures Periorbital: periorbital findings normal Eyelids: Yes eyelids normal Conjunctivae: conjunctivae normal Corneas: corneas abnormal on the left fluorescein used and abrasion and fluorescein used Pupils: Equal, round and reactive pupils present EOM: EOMs intact bilaterally Neck Neck: Yes normal visual inspection, Yes full ROM and Yes no lymphadenopathy Chest Chest palpation & inspection: normal inspection of the chest Resp Effort & Inspection: normal respiratory effort and able to speak in complete sentences Auscultation: clear to auscultation bilaterally Cardio Rate: regular rate Rhythm: regular rhythm GI Inspection: Yes normal to inspection Neuro General: patient oriented x3 and moves all extremities Cranial nerves: Yes Equal, round and reactive pupils present Cognition (Neuro): normal cognition Motor exam (neuro): 5/5 motor strength present throughout Sensory Exam: Normal double simultaneous stimulation for sensation Coordination: [id number] test normal Extrem General: Yes normal to inspection, Yes full ROM and Yes capillary refill normal Psych Appearance: grossly normal Mental Status: mental status grossly normal Affect: normal affect Attitude: cooperative Thought process: Normal thought process present Thought content: Normal thought content present Insight: Good insight present (Psych) Medical Decision Making MDM Narrative Medical decision making narrative: Patient is a 56 year old male presenting to the emergency department today with left eye pain and the feeling of a foreign object in the left eye. Patient's physical exam showed a small corneal abrasion to the left eye but was otherwise unremarkable. I explained my physical exam findings to the patient. I answered all questions asked by the patient. I stressed the importance of the patient taking his medication as prescribed. 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 I stressed the importance of the patient returning to the emergency department immediately if his symptoms were to worsen or if he were to develop any dizziness, shortness of breath, difficulty breathing, chest pain, blurry vision, loss of vision, nausea, vomiting, abdominal pain, fever, chills, back pain, or any other complaints. Patient verbalized agreement and understanding with this treatment plan and discharge. Differential Diagnosis Differential Diagnosis: corneal abrasion Medical Records Medical records reviewed: Yes I reviewed the patient's medical records. Discharge Plan Discharge Clinical Impression: Abrasion, corneal Patient Disposition: Home, Self-Care Instructions: Corneal Abrasion (DC) Additional Instructions: Follow up with your primary care provider. Return to the emergency department immediately if your symptoms worsen or if you develop any dizziness, shortness of breath, difficulty breathing, chest pain, blurry vision, loss of vision, nausea, vomiting, abdominal pain, fever, chills, back pain, or any other complaints. Prescriptions: New erythromycin 5 mg/gram (0.5 %) ointment 0.5 inch ophthalmic (eye) Q6H 5 Days Qty: 3.5 0RF No Action blood sugar diagnostic [FreeStyle Lite Strips] Strip 1 strip miscellaneous QID PRN (Reason: for diabetes mellitus) Qty: 150 11RF blood-glucose meter [FreeStyle [place] Lite] Kit 1 ea miscellaneous DIRECTED Qty: 1 0RF lancets [TRUEplus Lancets] 33 gauge misc 1 gauge miscellaneous QID Qty: 100 11RF pen needle, diabetic [Pentips] 32 gauge x 5/32 needle See Rx Instructions .ROUTE .COMPLEX Qty: 200 11RF Dose Instruction: USE SIX TIMES DAILY DIRECTED Rx Instructions: USE SIX TIMES DAILY DIRECTED metformin 500 mg tablet 1,000 mg PO BID 30 Days Qty: 120 4RF furosemide [Lasix] 20 mg tablet 20 mg PO DAILY 90 Days Qty: 90 0RF polyethylene glycol 3350 [Miralax] 17 gram powder in packet 17 g PO BID Qty: 30 0RF magnesium citrate Solution 300 ml PO DAILY PRN (Reason: constipation) Qty: 296 0RF psyllium husk [Daily Fiber] 0.4 gram capsule 0.4 g PO BEDTIME PRN (Reason: constipation) Qty: 10 0RF dicyclomine 20 mg tablet 20 mg PO QID PRN (Reason: abdominal pain) Qty: 20 0RF naproxen [Naprosyn] 500 mg tablet 500 mg PO BID Qty: 20 0RF aspirin [Adult Low Dose Aspirin] 81 mg tablet,delayed release (DR/EC) 81 mg PO DAILY 0RF clopidogrel 75 mg tablet 75 mg PO DAILY 0RF carvedilol 3.125 mg tablet 3.125 mg PO BID 0RF Rx Instructions: must administer with a meal/food lisinopril 2.5 mg tablet 2.5 mg PO DAILY 0RF isosorbide mononitrate 60 mg tablet extended release 24 hr 60 mg PO DAILY 0RF atorvastatin 80 mg tablet 80 mg PO DAILY 0RF melatonin 5 mg capsule See Rx Instructions PO ONCE 0RF Rx Instructions: 5 mg (2 tab) PO once; gabapentin 800 mg tablet 800 mg PO BID 0RF ezetimibe [Zetia] 10 mg tablet 10 mg PO DAILY 0RF nitroglycerin 0.4 mg tablet, sublingual 0.4 mg sublingual Q5M PRN (Reason: angina pectoris) Qty: 30 5RF Rx Instructions: do not exceed 3 doses per episode pregabalin 100 mg capsule 100 mg PO 0RF (DME) FreeStyle Alfredo 2 [place] Misc See Rx Instructions .ROUTE .MEDSUPPLY Qty: 1 0RF Rx Instructions: As directed (DME) FreeStyle Alfredo 2 Sensor Kit See Rx Instructions .ROUTE .MEDSUPPLY Qty: 2 11RF Rx Instructions: As directed every 2 weeks insulin aspart U-100 [Novolog Flexpen U-100 Insulin] 100 unit/mL (3 mL) insulin pen See Rx Instructions subcut QID Qty: 30 3RF Rx Instructions: 6-8 units with meals, 2 units with snack subcut 4 times a day; ammonium lactate 12 % cream topical BID 0RF potassium citrate 10 mEq (1,080 mg) tablet extended release 20 meq PO BID 90 Days Qty: 360 1RF doxazosin 4 mg tablet 4 mg PO BEDTIME 90 Days Qty: 90 1RF Lantus Solostar U-100 Insulin 100 unit/mL (3 mL) insulin pen 30 unit subcut DAILY Qty: 15 4RF ranolazine [Ranexa] 500 mg tablet extended release 12 hr 500 mg PO BID 90 Days Qty: 180 3RF Referrals: Yesenia Basilio NP [Primary Care Provider] - Sunday Salazar [Physician] - Interventions: ED Discharge Assessment Last Done: 09/02/21 12:06 Discharge Date/Time: 09/02/21 12:08 Print Language: Uzbek
== END 2021-09-02 12:08 | disposition home or self-care (01) ==
PROVIDERS: Emergency Provider Emergency Medicine; PCP Registered Nurse Community Health
DX: S05.02XA Injury of conjunctiva and corneal abrasion without foreign body, left eye, initial encounter (principal); I11.0 Hypertensive heart disease with heart failure; I50.22 Chronic systolic (congestive) heart failure; E11.9 Type 2 diabetes mellitus without complications; I25.10 Atherosclerotic heart disease of native coronary artery without angina pectoris; I25.2 Old myocardial infarction; X58.XXXA Exposure to other specified factors, initial encounter; Y93.89 Activity, other specified; Y92.810 Car as the place of occurrence of the external cause; Y99.9 Unspecified external cause status
CPT/HCPCS: 99283

== ENCOUNTER 2021-12-29 07:08 | Emergency (ER) | payer MEDICAID, SELFPAY ==
--- NOTE | ~2021-12-29 | XR_ITS ---
EXAMINATION: XR HIP, LEFT CLINICAL INFORMATION: Pain, decreased mobility COMPARISON: X-ray 07/02/2021 TECHNIQUE: Two views of the left hip. Pelvis one view. FINDINGS: Mild left hip arthritis, mild joint space loss and osteophyte formation. No evidence of acute fracture or dislocation seen.. Surgical clips in the medial soft tissues of the thigh. Mild right hip arthritis. SI joints and symphysis pubis intact. Mild SI joint degeneration. No acute pelvic fractures seen.. XR/XR hip LT w PEL1V IMPRESSION: Mild left hip arthritis. Mild right hip arthritis. No acute fracture or dislocation seen.
[2021-12-29 07:15] VITALS: BP 105/67; PULSE 74; RESP 16; TEMP 36.4; O2SAT 97; BMI 24.5
--- NOTE | 2021-12-29 08:50 | PC.NURSE ---
ambulatory from wheelchair to stretcher w slow, steady gait.
--- NOTE | 2021-12-29 09:21 | ED_ITS ---
HPI - Back Pain/Injury General Chief Complaint: Back Pain/Injury Stated Complaint: l side hip pain down leg Time Seen by Provider: 12/29/21 08:59 Source: patient Mode of arrival: wheelchair Limitations: language barrier ( Hungarian-speaking medical billing supervisor utilized) History of Present Illness HPI Narrative: patient presents emergency department for evaluation of lower extremity pain. He reports approximately 1 month ago the onset of left hip pain that radiates down the entire leg. In addition he is having left lower back pain. States he has a history of neuropathy but that this feels different. His neuropathy pain is typically just in the lower part of the extremity. Pain has progressively worsened over the past month. Today the pain seems the worse that has been currently 10/10. Stating that he has tried Tylenol at home without significant relief, and feels that he is not able to walk well due to the pain. Pain is made worse with movement of the hip joint or weight-bearing. Denies any preci pitating injury/fall. Denies fevers, chills, nausea, vomiting, dysuria, urinary frequency/ urgency / hesitancy, hematuria, Numbness or tingling of the extremities or perineum, bladder bowel dysfunction. he does report some associated suprapubic pain, states he was just recently treated for urinary tract infection, completed course of antibiotics yesterday which were prescribed by his PCP, uncertain of the name. MD elicited complaint: back pain Related Data Home Medications Medication Instructions Recorded Confirmed aspirin 81 mg tablet,delayed 81 mg PO DAILY 04/11/20 08/21/21 release (Adult Low Dose Aspirin) atorvastatin 80 mg tablet 80 mg PO DAILY 04/11/20 08/21/21 carvedilol 3.125 mg tablet 3.125 mg PO BID 04/11/20 08/21/21 clopidogrel 75 mg tablet 75 mg PO DAILY 04/11/20 08/21/21 ezetimibe 10 mg tablet (Zetia) 10 mg PO DAILY 04/11/20 08/21/21 gabapentin 800 mg tablet 800 mg PO BID 04/11/20 08/21/21 isosorbide mononitrate 60 mg 60 mg PO DAILY 04/11/20 08/21/21 tablet,extended release 24 hr lisinopril 2.5 mg tablet 2.5 mg PO DAILY 04/11/20 08/21/21 melatonin 5 mg capsule See Rx Instructions PO ONCE 04/11/20 08/21/21 pregabalin 100 mg capsule 100 mg PO 12/19/20 08/21/21 ammonium lactate 12 % topical cream appl topical BID 07/11/21 08/21/21 Previous Rx's Medication Instructions Recorded magnesium citrate 300 ml PO DAILY PRN constipation 02/28/20 #296 mL polyethylene glycol 3350 17 gram 17 g PO BID constipation #30 ea 02/28/20 oral powder packet (Miralax) psyllium husk 0.4 gram capsule 0.4 g PO BEDTIME PRN constipation 07/09/20 (Daily Fiber) #10 caps nitroglycerin 0.4 mg sublingual 0.4 mg sublingual Q5M PRN angina 07/24/20 tablet pectoris #30 tabs blood sugar diagnostic (FreeStyle 1 strip miscellaneous QID PRN for 09/19/20 Lite Strips) diabetes mellitus #150 strips blood-glucose meter (FreeStyle 1 ea miscellaneous DIRECTED #1 09/26/20 [place] Lite kit) kit lancets 33 gauge (TRUEplus Lancets) 1 gauge miscellaneous QID for 10/12/20 diabetes mellitus #100 ea flash glucose scanning reader #1 ea 01/01/21 (FreeStyle Alfredo 2 Dawn) flash glucose sensor (FreeStyle #2 ea 01/01/21 Alfredo 2 Sensor kit) pen needle, diabetic 32 gauge x See Rx Instructions .Route 01/22/21 (Pentips) .COMPLEX #200 ea dicyclomine 20 mg tablet 20 mg PO QID PRN abdominal pain 02/06/21 #20 tabs naproxen 500 mg tablet (Naprosyn) 500 mg PO BID #20 tabs 02/11/21 insulin aspart U-100 100 unit/mL See Rx Instructions subcut QID #30 05/07/21 (3 mL) subcutaneous pen (Novolog mL Flexpen U-100 Insulin aspart) ranolazine 500 mg tablet,extended 500 mg PO BID 90 days #180 tabs 06/25/21 release,12 hr (Ranexa) insulin glargine 100 unit/mL (3 30 unit (0.3 mL) subcut DAILY #15 08/06/21 mL) subcutaneous pen (Lantus mL Solostar U-100 Insulin) erythromycin 5 mg/gram (0.5 %) eye 0.5 inch ophthalmic (eye) Q6H 5 09/02/21 ointment days #3.5 grams furosemide 20 mg tablet (Lasix) 20 mg PO DAILY 90 days #90 tabs 11/22/21 doxazosin 4 mg tablet 4 mg PO BEDTIME 90 days #90 tabs 12/10/21 potassium citrate 10 mEq (1,080 20 meq PO BID 90 days #360 tabs 12/10/21 mg) tablet,extended release metformin 500 mg tablet 1,000 mg PO BID 30 days #120 tabs 12/12/21 oxycodone 5 mg tablet 5 mg PO Q8H PRN pain #7 tabs 12/29/21 Allergies Allergy/AdvReac Type Severity Reaction Status Date / Time No Known Allergies Allergy Verified 08/21/21 11:28 [No Known Allergies*] Review of Systems Review of Systems: Constitutional: No weight loss, fever, chills, weakness or fatigue. Skin: No rash or itching. Cardiovascular: No chest pain, chest pressure or chest discomfort. No palpitations or pedal edema. Respiratory: No shortness of breath, cough or sputum production. Gastrointestinal: No nausea, vomiting or diarrhea. No abdominal pain or blood in stool. Genitourinary: No burning micturition. No urinary frequency or incontinence. Neurologic: No headache, dizziness, syncope, unilateral weakness, ataxia, numb ness or tingling in the extremities. No change in bowel or bladder control. Musculoskeletal: + Back/ L hip pain as noted in HPI. Hematologic: No bleeding or bruising. Lymphatics: No enlarged lymph nodes. Psychiatric:No depression or anxiety. Endocrine: No polyuria or polydipsia. Yes all other systems are reviewed and are negative [facility] Past Medical History Attestation statement: The following information was validated with the patient. Source: old records reviewed Medical History Atherosclerotic cardiovascular disease Cardiomyopathy Chronic HFrEF (heart failure with reduced ejection fraction) Essential hypertension Hepatitis B Hepatitis C History of pancreatitis Hyperlipidemia LDL goal <70 Ischemic cardiomyopathy Myocardial infarction Type 2 diabetes mellitus with diabetic polyneuropathy Type 2 diabetes mellitus with hyperglycemia, with long-term current use of insulin Surgical History H/O cardiac catheterization H/O coronary artery bypass surgery History of appendectomy Hx of heart artery stent Family History Family History Mother Diabetes Social History Social History Household Members: Spouse Alcohol intake: never Patient Tobacco Use Status: Never used Tobacco Advance Directives: No Advance Directives Information Provided: No Physical Exam Vital Signs: Vital Signs: Last Vital Signs Temp 97.6 F 12/29/21 07:15 Pulse 74 12/29/21 07:15 Resp 16 12/29/21 07:15 BP 105/67 12/29/21 07:15 Pulse Ox 97 12/29/21 07:15 O2 Del Method 12/29/21 07:15 BMI result Body Mass Index 24.5 Vital signs have been reviewed as normal and appeared to be correct. Blood pressure normal.? Heart rate normal.? Respiration rate normal. Temperature normal.? Oxygen saturation normal. Appearance: Alert.?Oriented to person, place and time. No acute distress.?Normal affect. Eyes: Pupils equal, round and reactive to light.? ENT: Pharynx normal.?? Neck: Normal inspection.? Neck supple.?? CVS: Heart sounds normal. Normal heart rate and rhythm.? Pulses normal; bilateral radial pulses 2+, bilateral posterior tibial/dorsalis pedis pulses 2+.? Respiratory: No respiratory distress.? Lung sounds clear to auscultation bilaterally?? Abdomen: Soft and non-tender. Normoactive bowel sounds. No pulsatile mass.?? Skin: Skin warm and dry.? Normal skin color.? Normal skin turgor.?? Extremities: No lower extremity edema.? No calf ttp? Back: + mild paraspinal muscular tenderness from lumbar region to coccyx. No CVA tenderness. No midline spinal tenderness, step-off's, or deformity. Decreased AROM to left lower extremity. Straight leg test negative on right; Straight leg test positive on left. No rashes, lesions, areas of induration or fluctuance, or signs of infection noted. Neuro: Moves all extremities spontaneously. decreased strength in left hip extension/flexion, abduction, adduction. Sensation to light touch intact bilaterally. Patellar and Achilles reflex 2+ bilaterally. antalgic gait. No focal neuro deficits. Course Course Course Narrative: Patient is a 56-year-old male with a past medical history of ASCVD, myocardial infarction, CABG, cardiomyopathy, heart failure with reduced ejection fraction, hypertension, hepatitis-B, hepatitis-C, type 2 diabetes with neuropathy. He presents to the emergency department today for evaluation of left hip/ left lower back pain radiating down the entire leg worsening over the past month with difficulty ambulating. his pain is atraumatic suspect this may be secondary to arthritis/ radiculopathy/ neuropathy. not consistent with septic arthritis. On neurological exam there are no deficits. Extremity is neurovascularly intact distally. On exam no concern for cauda equina syndrome. Will obtain XR the left hip and pelvis exclude osseous abnormality /degenerative changes. Will obtain urinalysis to exclude infection. Will trial Flexeril, as he is already taking Lyrica for his neuropathy. Reevaluation(s) Reevaluation #1: XR of the left hip reveals no acute fracture dislocation, mild arthritic changes. Urinalysis with trace leukocyte esterase no bacteria, nitrates, or microscopic hematuria. Discussed these findings with patient. Will provide short course of oxycodone, advised need to contact primary care provider to arrange for further follow-up and evaluation. MDM - Back Pain/Injury Medical Records Attestation: I reviewed the patient's medical records. Lab Data Attestation: I reviewed the patient's lab results. Labs: Lab Results 12/29/21 Range/Units 11:07 Urine Color Dark Yellow Urine Appearance Clear Urine pH 5.0 (5.0-9.0) Ur Specific Bryant >= 1.030 H (1.005-1.025) Urine Protein Trace (Neg-Trace) mg/dL Urine Glucose (UA) 500 H (Negative) mg/dL Urine Ketones Trace (Negative) mg/dL Urine Blood Negative (Negative) Urine Nitrite Negative (Negative) Ur Leukocyte Esterase Trace H (Negative) Urine RBC 0-2 (0-2) /HPF Urine WBC 0-5 (0-5) /HPF Ur Squamous Epith Cells 0-2 (0-2) /HPF Urine Bacteria None Seen (None Seen) Hyaline Casts 0-2 (0-2) /LPF Imaging Data XR L hip: Radiologist's impression: XR/XR hip LT w PEL1V IMPRESSION: Mild left hip arthritis. Mild right hip arthritis. No acute fracture or dislocation seen. Discharge Plan Discharge Clinical Impression: Hip pain Patient Disposition: Home, Self-Care Instructions: Arthralgia (ED), Hip Pain (ED) Additional Instructions: X-ray does not show any broken bone fracture to the hip. There is evidence of arthritis to the hip. Be sure to rest, elevate your legs when possible. Will need to contact your primary care provider to arrange for follow-up visit within 3 days. You have given a short course of oxycodone to help with your pain, this is a narcotic it may make you drowsy and can be addictive. You should not drive, drink alcohol, go to work or operate machinery while taking this medication. Prescriptions: New oxycodone 5 mg tablet 5 mg PO Q8H PRN (Reason: pain) Qty: 7 0RF Rx Instructions: Partial Fill upon patient request. No Action blood sugar diagnostic [FreeStyle Lite Strips] Strip 1 strip miscellaneous QID PRN (Reason: for diabetes mellitus) Qty: 150 11RF blood-glucose meter [FreeStyle [place] Lite] Kit 1 ea miscellaneous DIRECTED Qty: 1 0RF lancets [TRUEplus Lancets] 33 gauge misc 1 gauge miscellaneous QID Qty: 100 11RF pen needle, diabetic [Pentips] 32 gauge x 5/32 needle See Rx Instructions .ROUTE .COMPLEX Qty: 200 11RF Dose Instruction: USE SIX TIMES DAILY DIRECTED Rx Instructions: USE SIX TIMES DAILY DIRECTED furosemide [Lasix] 20 mg tablet 20 mg PO DAILY 90 Days Qty: 90 3RF doxazosin 4 mg tablet 4 mg PO BEDTIME 90 Days Qty: 90 1RF potassium citrate 10 mEq (1,080 mg) tablet extended release 20 meq PO BID 90 Days Qty: 360 1RF metformin 500 mg tablet 1,000 mg PO BID 30 Days Qty: 120 4RF polyethylene glycol 3350 [Miralax] 17 gram powder in packet 17 g PO BID Qty: 30 0RF magnesium citrate Solution 300 ml PO DAILY PRN (Reason: constipation) Qty: 296 0RF psyllium husk [Daily Fiber] 0.4 gram capsule 0.4 g PO BEDTIME PRN (Reason: constipation) Qty: 10 0RF erythromycin 5 mg/gram (0.5 %) ointment 0.5 inch ophthalmic (eye) Q6H 5 Days Qty: 3.5 0RF dicyclomine 20 mg tablet 20 mg PO QID PRN (Reason: abdominal pain) Qty: 20 0RF naproxen [Naprosyn] 500 mg tablet 500 mg PO BID Qty: 20 0RF aspirin [Adult Low Dose Aspirin] 81 mg tablet,delayed release (DR/EC) 81 mg PO DAILY clopidogrel 75 mg tablet 75 mg PO DAILY carvedilol 3.125 mg tablet 3.125 mg PO BID Rx Instructions: must administer with a meal/food lisinopril 2.5 mg tablet 2.5 mg PO DAILY isosorbide mononitrate 60 mg tablet extended release 24 hr 60 mg PO DAILY atorvastatin 80 mg tablet 80 mg PO DAILY melatonin 5 mg capsule See Rx Instructions PO ONCE Rx Instructions: 5 mg (2 tab) PO once; gabapentin 800 mg tablet 800 mg PO BID ezetimibe [Zetia] 10 mg tablet 10 mg PO DAILY nitroglycerin 0.4 mg tablet, sublingual 0.4 mg sublingual Q5M PRN (Reason: angina pectoris) Qty: 30 5RF Rx Instructions: do not exceed 3 doses per episode pregabalin 100 mg capsule 100 mg PO (DME) FreeStyle Alfredo 2 Dawn Misc See Rx Instructions .ROUTE .MEDSUPPLY Qty: 1 0RF Rx Instructions: As directed (DME) FreeStyle Alfredo 2 Sensor Kit See Rx Instructions .ROUTE .MEDSUPPLY Qty: 2 11RF Rx Instructions: As directed every 2 weeks insulin aspart U-100 [Novolog Flexpen U-100 Insulin] 100 unit/mL (3 mL) insulin pen See Rx Instructions subcut QID Qty: 30 3RF Rx Instructions: 6-8 units with meals, 2 units with snack subcut 4 times a day; ammonium lactate 12 % cream topical BID Lantus Solostar U-100 Insulin 100 unit/mL (3 mL) insulin pen 30 unit subcut DAILY Qty: 15 4RF ranolazine [Ranexa] 500 mg tablet extended release 12 hr 500 mg PO BID 90 Days Qty: 180 3RF Interventions: ED Discharge Assessment Last Done: 12/29/21 12:37 Discharge Date/Time: 12/29/21 12:38 Print Language: Hungarian
[2021-12-29] MEDS: Cyclobenzaprine HCl 10 MG TABLET PO (10:28)
[2021-12-29] MEDS: oxyCODONE HCl Immed Release 5 MG TABLET PO (11:19)
[2021-12-29 11:27] LABS: Appearance Urine Clear; Color Urine Dark Yellow; Glucose Urine UA 500 mg/dL (Negative); Leukocyte Esterase Urine Trace (Negative); Nitrite Urine Negative (Negative); Specific Gravity - Urine >= 1.030 (1.005-1.025); UMIC TRIGGER UACC YES; Urine Blood Negative (Negative); Urine Ketones Trace mg/dL (Negative); Urine Protein Trace mg/dL (Neg-Trace)
[2021-12-29 11:33] LABS: Bacteria Urine None Seen (None Seen); Hyaline Casts Urine 0-2 /LPF (0-2); RBC Urine 0-2 /HPF (0-2); Squamous Epithelial Cell Urine 0-2 /HPF (0-2); WBC Urine 0-5 /HPF (0-5)
== END 2021-12-29 12:38 | disposition home or self-care (01) ==
PROVIDERS: Nurse Practitioner Family; Emergency Provider Internal Medicine; PCP Registered Nurse Community Health
DX: M25.552 Pain in left hip (principal); M54.50 Low back pain, unspecified; M16.0 Bilateral primary osteoarthritis of hip; E11.40 Type 2 diabetes mellitus with diabetic neuropathy, unspecified; I11.0 Hypertensive heart disease with heart failure; I50.9 Heart failure, unspecified; E78.5 Hyperlipidemia, unspecified; I25.2 Old myocardial infarction; B19.10 Unspecified viral hepatitis B without hepatic coma; B19.20 Unspecified viral hepatitis C without hepatic coma; Z79.82 Long term (current) use of aspirin; Z79.02 Long term (current) use of antithrombotics/antiplatelets; Z79.899 Other long term (current) drug therapy; Z79.4 Long term (current) use of insulin
CPT/HCPCS: 73502; 81001; 99283

== ENCOUNTER → 2022-01-03 07:31 | Outpatient (BNVA) | payer MEDICAID, SELFPAY | PROVIDERS: PCP Registered Nurse Community Health; Visit Provider Physician Assistant | DX: Z01.818 Encounter for other preprocedural examination (principal); K59.09 Other constipation; K64.9 Unspecified hemorrhoids; I25.5 Ischemic cardiomyopathy; Z79.02 Long term (current) use of antithrombotics/antiplatelets | CPT/HCPCS: 99202 ==

== ENCOUNTER 2022-01-14 09:48 | Outpatient (REF) | payer MEDICAID, SELFPAY ==
--- NOTE | ~2022-01-14 | XR_ITS ---
EXAMINATION: XR LUMBOSACRAL SPINE WITH OBLIQUES CLINICAL INFORMATION: Pain left hip . COMPARISON: None. TECHNIQUE: AP, both oblique, and lateral views of the lumbar spine. Lateral view of the lumbosacral junction. FINDINGS: There is normal lumbar lordosis. The vertebral heights and alignment is normal. There is no visible acute fracture, dislocation subluxation. No pars defect or listhesis seen. There is loss of disc height at T11-T12 disc level with ventral spondylosis. The paravertebral soft tissues are normal. SI joints are normal. XR/XR lumbar spine 4V min IMPRESSION: Unremarkable lumbar spine exam. Degenerative disc changes with ventral spondylosis T11-T12 disc level.
== END 2022-01-14 09:49 | disposition home or self-care (01) ==
LOC: HO.XRAY 09:48
PROVIDERS: PCP Registered Nurse; Visit Provider Emergency Medicine
DX: M25.552 Pain in left hip (principal)
CPT/HCPCS: 72110

== ENCOUNTER 2022-01-17 10:43 | Emergency (ER) | payer MEDICAID, SELFPAY ==
[2022-01-17 11:02] VITALS: BP 134/72; PULSE 68; RESP 20; TEMP 36.2; O2SAT 98; BMI 26.3
== END 2022-01-18 00:35 | disposition left against medical advice (07) ==
LOC: HO.ED 01-18 00:27
PROVIDERS: Emergency Provider Emergency Medicine
DX: M25.562 Pain in left knee (principal)
CPT/HCPCS: 99212; 99281

== ENCOUNTER 2022-01-18 15:45 | Outpatient (REF) | payer MEDICAID, SELFPAY ==
--- NOTE | ~2022-01-18 | XR_ITS ---
EXAMINATION: XR THORACIC SPINE CLINICAL INFORMATION: Polyneuropathy radiculopathy COMPARISON: Chest x-ray 02/22/2020 TECHNIQUE: 3 views of the thoracic spine were obtained. FINDINGS: Normal alignment of the thoracic spine. Thoracic disc spaces are relatively well-maintained diffusely. Small osteophyte again noted off the anterior aspect of T11. Patient is status post CABG. Visualized lung parenchyma is well aerated. XR/XR thoracic spine 3V IMPRESSION: Minimal degenerative changes of the lower thoracic spine.
== END 2022-01-18 15:46 | disposition home or self-care (01) ==
LOC: HO.XRAY 15:45
PROVIDERS: Absent Provider Registered Nurse; PCP Registered Nurse; Visit Provider Emergency Medicine
DX: M54.16 Radiculopathy, lumbar region (principal); G62.9 Polyneuropathy, unspecified
CPT/HCPCS: 72072

== ENCOUNTER → 2022-02-27 14:51 | Outpatient (BNVA) | payer MEDICAID, SELFPAY | PROVIDERS: PCP Registered Nurse; Visit Provider Anesthesiology | DX: M06.9 Rheumatoid arthritis, unspecified (principal); M46.1 Sacroiliitis, not elsewhere classified; G89.4 Chronic pain syndrome; E11.65 Type 2 diabetes mellitus with hyperglycemia; E11.42 Type 2 diabetes mellitus with diabetic polyneuropathy; Z98.890 Other specified postprocedural states; Z95.1 Presence of aortocoronary bypass graft; Z95.5 Presence of coronary angioplasty implant and graft | CPT/HCPCS: 99202 ==

== ENCOUNTER 2022-04-30 06:39 | Outpatient (REF) | payer MEDICAID, SELFPAY | END 2022-04-30 06:40 | disposition home or self-care (01) | LOC: CF 06:39 | PROVIDERS: Visit Provider Anesthesiology | DX: Z13.89 Encounter for screening for other disorder (principal) ==

== ENCOUNTER 2022-05-30 09:57 | Day surgery (SDC) | payer MEDICAID, SELFPAY ==
[2022-05-27 13:02] VITALS: BMI 25.7
[2022-05-30] MEDS: Lactated Ringers 1,000 ML 50 ML IVCONT (10:11)
--- NOTE | 2022-05-30 10:31 | MHC.SHP ---
Pre-Procedural Eval Section A Date of Service: 05/30/22 Section B Chief Complaint: hemorrhoids, constipation, screening Relevant Family History (Specify if Yes): No Relevant Social History: None Present Medications: see Short Stay Collaborative assessment Medical History: Significant History (Atherosclerotic cardiovascular disease Cardiomyopathy Chronic HFrEF (heart failure with reduced ejection fraction) Essential hypertension Hepatitis B Hepatitis C History of pancreatitis Hyperlipidemia LDL goal <70 Ischemic cardiomyopathy Myocardial infarction Type 2 diabetes mellitus with diabetic p) History of Previous Operations: Relevant previous surgery/procedure and date(s) (H/O cardiac catheterization H/O coronary artery bypass surgery History of appendectomy Hx of heart artery stent) Allergies: Allergies Allergy/AdvReac Type Severity Reaction Status Date / Time No Known Allergies Allergy Verified 02/27/22 15:01 [No Known Allergies*] Review of Systems Sugical H&P ROS: Negative: Constitution, Cardiovascular, Respiratory, Neurological, Psychiatric, Hem-Onc, Allergic/Immunologic, Gastrointestinal, Genitourinary, Musculoskeletal, Integumentary, Endocrine and Eyes/Ears/Nose/Throat Exam Surgical H&P Exam: Normal: HEENT, Normal: Heart, Normal: Lungs, Normal: Extremities, Normal: Abdomen, Normal: Skin and Normal: Neurological Plan Diagnosis/Plan: Unchanged I have reviewed the history and physical and performed a pertinent physical examination on my patient. No changes have occurred unless specified. Time Spent With Patient Time: Total time managing care of this patient today ____ minutes.
[2022-05-30 10:41] LABS: Glucose, Whole Blood 128 mg/dL (60-115)
[2022-05-30 10:48] VITALS: BP 136/80; PULSE 76; RESP 18; TEMP 36.7; O2SAT 96
--- NOTE | 2022-05-30 12:53 | PC.NURSE ---
Dr. Renner was updated during admission, with biomedical analytical scientist, that patient stated that he was taken by ambulance to [facility] last Friday and discharged on to home. Pt stated took first ever dose of Tizanidine and then felt dizzy, unwell and had chest pain. Son called ambulance. Dr. Renner requested notes from [facility]. Paperwork arrived at approx. 1200 and was approx. forty [address] Renner and Dr. Flores reviewing now. Patient has been updated by biomedical analytical scientist of each step while waiting in [facility].
--- NOTE | 2022-05-30 13:02 | HO.ANESPROP2 ---
HPI - Anesthesia Eval Consult details Narrative: 57 M for colonoscopy CAD , s/p CABG and cardiac stent . About 2 weeks ago patient was admitted at [facility] for chest pain and was seen by cardiology , Got serial EKG and trops . Patient was cleared for discharge by cardiology to self care . patient denies any current chest pain . As per documentation obtained from [facility] Seen by cardiology EKG and Trop at baseline , no need for anymore cardiac workup PMFSH Active Problems Active Problems: All Active Problems (Updated 02/27/22 @ 15:51 by Luisito Walter MD) Chronic pain syndrome (Acute) Rheumatoid arthritis (Acute) Sacroiliitis (Acute) Cellulitis (Acute) Chronic constipation (Acute) Hemorrhoids (Acute) Antiplatelet or antithrombotic long-term use (Acute) Encounter for screening colonoscopy (Acute) Low serum cobalamin (Acute) Calcium oxalate calculus (Acute) Bladder outlet obstruction (Acute) Urinary urgency (Acute) Precordial chest pain (Acute) Preoperative cardiovascular examination (Acute) Right inguinal pain (Acute) Other and unspecified hyperlipidemia (Acute) Ischemic cardiomyopathy (Acute) Atherosclerotic cardiovascular disease (Acute) Type 2 diabetes mellitus with hyperglycemia, with long-term current use of insulin (Acute) Type 2 diabetes mellitus with diabetic polyneuropathy (Acute) Hyperlipidemia LDL goal <70 (Acute) Essential hypertension (Acute) Past Medical History Medical History Atherosclerotic cardiovascular disease Cardiomyopathy Chronic HFrEF (heart failure with reduced ejection fraction) Essential hypertension Hepatitis B Hepatitis C History of pancreatitis Hyperlipidemia LDL goal <70 Ischemic cardiomyopathy Myocardial infarction Type 2 diabetes mellitus with diabetic polyneuropathy Type 2 diabetes mellitus with hyperglycemia, with long-term current use of insulin Family History Family History Mother Diabetes Family history of problems with anesthesia: No Surgical History Surgical History H/O cardiac catheterization H/O coronary artery bypass surgery History of appendectomy Hx of heart artery stent History of Problems with Anesthesia: No Social History Social History Household Members: Spouse Alcohol intake: never Patient Tobacco Use Status: Never used Tobacco Meds Allergies Allergy/AdvReac Type Severity Reaction Status Date / Time No Known Allergies Allergy Verified 05/30/22 13:08 [No Known Allergies*] Active Medications: Current Medications Lactated Ringer's (Lr) 1,000 mls @ 50 mls/hr IVCONT .Q20H ZOHRA Last Admin: 05/30/22 10:11 Dose: 50 mls/hr Home Medications Medication Instructions Recorded Confirmed Last Taken Type atorvastatin 80 mg tablet 80 mg PO DAILY 04/11/20 05/27/22 Unknown History carvedilol 3.125 mg tablet 3.125 mg PO BID 04/11/20 05/27/22 Unknown History clopidogrel 75 mg tablet 75 mg PO DAILY 04/11/20 05/27/22 Unknown History ezetimibe 10 mg tablet (Zetia) 10 mg PO DAILY 04/11/20 05/27/22 Unknown History gabapentin 800 mg tablet 800 mg PO BID 04/11/20 05/27/22 Unknown History isosorbide mononitrate 60 mg 60 mg PO DAILY 04/11/20 05/27/22 Unknown History tablet,extended release 24 hr lisinopril 2.5 mg tablet 2.5 mg PO DAILY 04/11/20 05/27/22 Unknown History melatonin 5 mg capsule See Rx Instructions PO ONCE 04/11/20 05/27/22 Unknown History ammonium lactate 12 % topical cream 1 appl topical BID 07/11/21 05/27/22 Unknown History aspirin 81 mg chewable tablet 1 tab PO QAM 01/17/22 05/27/22 Unknown History fluticasone propionate 50 1 - 2 spray intranasal DAILY PRN 01/17/22 01/17/22 Unknown History mcg/actuation nasal congestion spray,suspension pregabalin 50 mg capsule 100 mg PO BID 01/17/22 01/17/22 Unknown History pregabalin 100 mg capsule 100 mg PO BID 02/27/22 05/27/22 Unknown History Exam Exam Date and Time: May 30, 2022 1302 Height,Weight and Vital Signs: Height 5 ft 8 in Weight 76.657 kg Last Vital Signs Temp 98.1 F 05/30/22 10:48 Pulse 76 05/30/22 10:48 Resp 18 05/30/22 10:48 BP 136/80 05/30/22 10:48 Pulse Ox 96 05/30/22 10:48 O2 Del Method 05/30/22 10:48 Pertinent Lab Results Pertinent Lab Results: Laboratory Tests 05/30/22 10:34 POC Glucose 128 H Airway Mallampati Class: III TM Dist: >3cm Neck ROM: Full Loose/Missing/Broken Teeth: Yes (Chipped teeth ) Heart: S1,S2 Lungs: b/l breath sounds Assessment and Plan Assessment Anesthesia Assessment: Anesthesia Plan Discussed and Chart Reviewed Final Anesthetic Review Family History of Problems with Anesthesia: No History of Problems with Anesthesia: No NPO: Yes ASA Class: III Final Preanesthetic Review: Meds/Allgs Chart Reviewed, Consent Obtained/Reviewed and Anes Risks/Benef Reviewed Patient Risk: High Procedure Risk: Intermediate Anesthetic Plan Anesthetic Plan: MAC: Disposition: Standard PACU
--- NOTE | 2022-05-30 13:21 | P.OP_ITS ---
Operative Note Operative Note Date of Service: 05/30/22 Narrative: Operative Information Procedure Description: Colonoscopy Indication: screening Anesthesia: MAC COLONOSCOPY Instrument: Olympus variable stiffness adult scope 190L Colonoscopy Monitoring: Vital signs and clinical assessment, continuous EKG monitoring, Pulse oximetry, Carbon Dioxide monitoring and blood pressure monitoring were done throughout the procedure. Colon withdrawal time was 10 minutes. Procedure: The patient was placed in the left lateral decubitis position and pre-procedure medications were administered. After a digital rectal examination of the ano-rectum, the video colonoscope was inserted into the rectum and advanced through the colon to the cecum/TI. The colonoscope was slowly withdrawn in a retrograde panoramic fashion and the colon mucosa was carefully examined including a retroflexed view of the rectum. Findings and interventions are described below. Procedure Difficulty: moderate Findings: Terminal Ileum-normal Cecum:normal Ascending Colon: normal 10 mm sessile polyp removed with cold snare Transverse Colon -normal Descending Colon:normal Sigmoid Colon: normal Rectum: Retroflexion with small internal hemorrhoids, grade I Anorectum - normal Colon preparation: [place] Bowel Preparation Scale Right colon; 2 Transverse colon: 2 Left colon; 1-2 (0 = Unprepared colon segment with mucosa not seen due to solid stool that cannot be cleared. 1 = Portion of mucosa of the colon segment seen, but other areas of the colon segment not well seen due to staining, residual stool and/or opaque liquid. 2 = Minor amount of residual staining, small fragments of stool and/or opaque liquid, but mucosa of colon segment seen well. 3 = Entire mucosa of colon segment seen well with no residual staining, small fragments of stool or opaque liquid) Impression and Post Procedure Diagnosis: polyp internal hemorrhoids Plan: High fiber diet leaflet Avoid straining at stool, epsom salts and sitz bath, anusol supps or cream Repeat Colonoscopy in 1-2 years due to fair prep on left or earlier if clinically indicated ok to restart plavix tomorrow evening, can cont with aspirin Above findings were reviewed with the patient and relevant handouts were provided if indicated.
--- NOTE | 2022-05-30 13:28 | PC.NURSE ---
Dr. Renner reviewed paperwork from [facility] and jeanne to proceed.
[2022-05-30 14:04] VITALS: BP 105/68; PULSE 65; RESP 16; TEMP 36.3; O2SAT 98
[2022-05-30 14:19] VITALS: BP 106/77; PULSE 77; RESP 14; O2SAT 98
[2022-05-30 14:31] VITALS: BP 113/75; PULSE 66; RESP 15; TEMP 36.3; O2SAT 98
== END 2022-05-30 14:58 | disposition home or self-care (01) ==
PROVIDERS: PCP Registered Nurse Community Health; Visit Provider Internal Medicine Gastroenterology
PROC: 0DJD8ZZ Inspection of Lower Intestinal Tract, Via Natural or Artificial Opening Endoscopic (ICD-10-PCS; CPT 45378; principal; 2022-05-30 11:00)
DX: Z12.11 Encounter for screening for malignant neoplasm of colon (principal); K63.5 Polyp of colon; K64.0 First degree hemorrhoids; K59.09 Other constipation; I11.0 Hypertensive heart disease with heart failure; I50.22 Chronic systolic (congestive) heart failure; I25.5 Ischemic cardiomyopathy; I25.10 Atherosclerotic heart disease of native coronary artery without angina pectoris; Z98.61 Coronary angioplasty status; Z95.1 Presence of aortocoronary bypass graft; I25.2 Old myocardial infarction; E11.42 Type 2 diabetes mellitus with diabetic polyneuropathy; E11.65 Type 2 diabetes mellitus with hyperglycemia; Z79.4 Long term (current) use of insulin; Z79.02 Long term (current) use of antithrombotics/antiplatelets; Z79.82 Long term (current) use of aspirin; Z79.899 Other long term (current) drug therapy
CPT/HCPCS: 45385; 82947; 88305; J2250; J3010

== ENCOUNTER → 2022-06-13 07:50 | Outpatient (BNVA) | payer MEDICAID, SELFPAY | PROVIDERS: PCP Registered Nurse Community Health; Referring Provider Registered Nurse Community Health; Visit Provider Physician Assistant | DX: K64.8 Other hemorrhoids (principal); Z98.890 Other specified postprocedural states | CPT/HCPCS: 99212 ==

== ENCOUNTER → 2022-06-24 15:13 | Outpatient (BNVA) | payer MEDICAID, SELFPAY | PROVIDERS: PCP Registered Nurse Community Health; Visit Provider Anesthesiology | DX: G89.4 Chronic pain syndrome (principal); M46.1 Sacroiliitis, not elsewhere classified; M06.9 Rheumatoid arthritis, unspecified | CPT/HCPCS: 99212 ==

== ENCOUNTER → 2022-07-25 09:55 | Outpatient (BNVA) | payer MEDICAID, SELFPAY | PROVIDERS: PCP Registered Nurse Community Health; Referring Provider Registered Nurse Community Health; Visit Provider Internal Medicine | DX: I25.10 Atherosclerotic heart disease of native coronary artery without angina pectoris (principal); I25.5 Ischemic cardiomyopathy; E78.5 Hyperlipidemia, unspecified; E11.65 Type 2 diabetes mellitus with hyperglycemia; Z79.4 Long term (current) use of insulin; Z79.899 Other long term (current) drug therapy | CPT/HCPCS: 93005; 99212 ==

== ENCOUNTER → 2022-07-26 11:06 | Outpatient (BNVA) | payer MEDICAID, SELFPAY | PROVIDERS: PCP Registered Nurse Community Health; Visit Provider Nurse Practitioner Family | DX: N40.0 Benign prostatic hyperplasia without lower urinary tract symptoms (principal); R39.15 Urgency of urination; N20.0 Calculus of kidney; N52.9 Male erectile dysfunction, unspecified; Z79.82 Long term (current) use of aspirin; Z79.899 Other long term (current) drug therapy | CPT/HCPCS: 51798; 99212 ==

== ENCOUNTER 2022-09-10 06:04 | Outpatient (REF) | payer MEDICAID, SELFPAY ==
--- NOTE | ~2022-09-10 | FL_ITS ---
EXAMINATION: XR FLUOROSCOPY WITH IMAGES CLINICAL INFORMATION: M46.1 - Sacroiliitis, not elsewhere classified COMPARISON: Lumbar radiographs 01/14/2022 TECHNIQUE: Fluoroscopy Supervised By: Dr. Luisito Walter. Fluoroscopy Time: 0.2 minutes. Cumulative Dose: 2.0 mGy. DAP: 0.0347 Gycm2. Images: 2. FINDINGS: There is a spinal needle overlying the mid to lower left SI joint and mid to lower right SI joint, respectively. There is contrast in the periarticular soft tissues with probable early intra-articular contrast. No vasculature communication appreciated. FL/FL guidance in treatment room IMPRESSION: Fluoroscopy for pain management procedures.
== END 2022-09-10 06:05 | disposition home or self-care (01) ==
LOC: CF 06:04
PROVIDERS: Visit Provider Anesthesiology
DX: M46.1 Sacroiliitis, not elsewhere classified (principal); M06.9 Rheumatoid arthritis, unspecified; G89.4 Chronic pain syndrome
CPT/HCPCS: 27096; J3301

== ENCOUNTER → 2022-09-16 08:32 | Outpatient (BNVA) | payer MEDICAID, SELFPAY | PROVIDERS: PCP Registered Nurse Community Health; Visit Provider Physician Assistant | DX: K59.09 Other constipation (principal); G89.4 Chronic pain syndrome | CPT/HCPCS: 99212 ==

== ENCOUNTER 2023-01-09 08:29 | Outpatient (REF) | payer MEDICAID, SELFPAY ==
--- NOTE | ~2023-01-09 | US_ITS ---
EXAMINATION: US COMPLETE ABDOMEN WITH LIVER ELASTOGRAPHY CLINICAL INFORMATION: Fatty liver COMPARISON: Previous CT of the abdomen and pelvis most recent January 2021 TECHNIQUE: Real-time imaging of the abdominal viscera. Noninvasive ultrasound liver fibrosis assessment is performed using Sola ElastPQ point quantification shear wave elastography (2D-SWE) with a C5-2 MHz transducer. Multiple elastography samples are obtained. FINDINGS: PANCREAS: Not well visualized due to bowel gas. Overlying bowel gas. ABDOMINAL AORTA: The proximal and distal aortic segments are normal in caliber. The mid abdominal aorta is not well visualized due to bowel gas. INFERIOR VENA CAVA: Visualized portions are normal. LIVER: Liver is difficult to visualize due to body habitus. Liver echotexture is slightly increased. No focal lesion or intrahepatic biliary duct dilatation. The right lobe measures 16 cm in length. The left lobe measures 10.5 cm in length. Portal flow is normal/hepatopedal Shear wave liver elastography median stiffness is 1.6 m/s (reference: normal median stiffness is 1.3 m/s or less). IQR/median stiffness to assess sampling precision is 0.2 (reference: good quality data set is IQR/median stiffness of 0.15 or less). GALLBLADDER: Gallbladder is normal in size. There is a small area of ring down artifact questionable for adenomyomatosis of the gallbladder wall. No gallstones are seen.. COMMON BILE DUCT: Normal in caliber measuring 0.5 cm in diameter. RIGHT KIDNEY: 2 stones measuring 4 x 5 mm and 7 mm in the lower pole. No hydronephrosis. No focal parenchymal lesions. The kidney measures 11 cm in maximum dimension. LEFT KIDNEY: 2 stones measuring 5 x 3 x 5 mm and 2 mm in the lower pole. No hydronephrosis. No focal parenchymal lesions. The kidney measures 11 cm in maximum dimension. SPLEEN: Normal. The spleen measures 10 cm in maximum dimension. FREE FLUID: None. US/US abdomen comp w elastography IMPRESSION: 1. Impression: Limited visualization of the liver, pancreas and aorta. Slightly echogenic liver. Differential would include fatty infiltration and hepatocellular disease. Bilateral renal stones. 2. Liver elastography: Limited due to sampling error. REFERENCE: Society of Radiologists in Ultrasound Liver Stiffness Thresholds (2019): LIVER STIFFNESS THRESHOLDS: *Liver Stiffness equal or less than 1.3 m/s: High probability of being normal. *Liver Stiffness less than 1.7 m/s: In the absence of other known clinical signs, rules out compensated advanced chronic liver disease. *Liver Stiffness 1.7-2.1 m/s: Suggestive of compensated advanced chronic liver disease but need further test for confirmation. *Liver Stiffness over 2.1 m/s: Rules in compensated advanced chronic liver disease. *Liver Stiffness over 2.4 m/s: Suggestive of clinically significant portal hypertension. QUALITY OF DATA SET: *IQR/Median value equal or less than 0.15 implies a quality data set. *IQR/Median value over 0.15 implies a poor quality data set. SIGNIFICANT CHANGE FROM PRIOR EXAM: Significant change if liver stiffness measurement is 10% or greater from prior exam. OTHER CONSIDERATIONS: The stage of liver fibrosis may be overestimated in the setting of acute hepatitis, liver inflammation, elevated liver function tests, hepatic vascular congestion, obstructive cholestasis, non-fasting state, and infiltrative diseases such as amyloidosis and lymphoma. In some patients with NAFLD, the liver stiffness thresholds for compensated advanced chronic liver disease may be lower. In causes other than viral hepatitis and NAFLD, liver stiffness thresholds are not well established.
== END 2023-01-09 08:30 | disposition home or self-care (01) ==
LOC: HO.US 08:29
PROVIDERS: PCP Registered Nurse Community Health; Visit Provider Physician Assistant
DX: K76.0 Fatty (change of) liver, not elsewhere classified (principal); G89.4 Chronic pain syndrome
CPT/HCPCS: 76705; 76981

== ENCOUNTER 2023-01-14 09:35 | Outpatient (AMB) | payer MEDICAID, SELFPAY ==
--- NOTE | 2023-01-14 09:35 | A.OFFVIS_ITS ---
Intake Intake Visit Reasons: Voiding trial/[facility] ER follow up Intake Note: Patient is present for [facility] ER follow up/voiding trial Urology Medications: doxazosin Blood Thinner: aspirin/clopidogrel PVR: Staff Mine Warfare Officer Required: Yes Staff Mine Warfare Officer Name: Sb ([id number]) & Cristi Accompanied by: Self / Same As Patient Allergies No Known Allergies [No Known Allergies*] Allergy (Verified 01/14/23 19:54) Medication List - Last Reconciled 01/14/23 by JOSE CRUZ Whitaker ammonium lactate 12% 1 appl topical BID aspirin 81 mg PO QAM atorvastatin 80 mg PO DAILY blood sugar diagnostic (FreeStyle Lite Strips) 1 strip miscellaneous QID PRN blood-glucose meter (FreeStyle [place] Lite kit) 1 ea miscellaneous DIRECTED carvedilol 3.125 mg PO BID clopidogrel 75 mg PO DAILY diclofenac sodium 1% 2 grams topical QID 30 days dicyclomine 20 mg PO QID PRN docusate sodium 200 mg (2 x 100 mg) PO BEDTIME doxazosin 4 mg PO BEDTIME 90 days ezetimibe (Zetia) 10 mg PO DAILY flash glucose scanning reader (CollexpoStyle Alfredo 2 [place]) As directed flash glucose sensor (FreeStyle Alfredo 2 Sensor kit) As directed every 2 weeks fluticasone propionate 50 mcg/actuation 1 - 2 sprays intranasal DAILY PRN furosemide (Lasix) 20 mg PO DAILY 90 days gabapentin 800 mg PO BID hydrocortisone 2.5% (Proctozone-HC) 1 appl [place] BID PRN insulin aspart U-100 (Novolog FlexPen U-100 Insulin aspart) 6-8 units with meals, 2 units with snack subcut 4 times a day; insulin glargine (Lantus Solostar U-100 Insulin) 30 units (0.3 mL) subcut DAILY isosorbide mononitrate ER 60 mg PO DAILY lancets (TRUEplus Lancets) 1 gauge miscellaneous QID lisinopril 2.5 mg PO DAILY magnesium citrate 300 mL PO DAILY PRN melatonin 5 mg (2 tab) PO once; metformin 1,000 mg (2 x 500 mg) PO BID 30 days methylcellulose (laxative) (Citrucel) 500 mg PO TID naproxen 500 mg PO nitroglycerin 0.4 mg sublingual Q5M PRN pen needle, diabetic (Pentips) USE SIX TIMES DAILY DIRECTED polyethylene glycol 3350 (Miralax) 17 grams PO DAILY 30 days potassium citrate ER 20 mEq (2 x 10 mEq (1,080 mg)) PO BID 30 days pregabalin 100 mg PO BID pregabalin 100 mg PO ONCE ranolazine ER (Ranexa) 500 mg PO BID 90 days tadalafil (Cialis) 5 mg PO DAILY 90 days tizanidine 4 mg PO TID HPI HPI Comments History of Present Illness Details Barrett is a pleasant 57-year-old Indian-speaking male patient of Dr. Basilio who was accompanied by his at today's office visit. He has a past medical history of ischemic cardiomyopathy, atherosclerotic cardiovascular disease, history of pancreatitis, hep B, hep C, type 2 diabetes, hyperlipidemia, hypertension, and myocardial infarction. He presents to the office today for a follow-up. Of note, patient was seen approximately 6 months ago for a follow up of his ongoing lower urinary tract symptoms, erectile dysfunction, and history of incomplete bladder emptying. During his last office visit here in July recommendations were made for a PSA and a retroperitoneal ultrasound for further assessment evaluation. Recommendations were made for follow-up in 6 weeks however patient no showed his appointments. In discussion with the patient today he reports being in [place] in the month of September in October and returned sometime in November. He reports seeking emergency room care at [facility] approximately 1 week ago for difficulty with urination. It appears patient was noted to be in retention of approximately 600 mL and a Bender catheter was inserted. A voiding trial was performed in office today by nursing staff. Patient was able to successfully pass his voiding trial today. Discussed at length importance of keeping scheduled appointments for continuity of care. Discussed obtaining PSA in 6-12 weeks given recent Bender catheter. Discussed obtaining retroperitoneal ultrasound for further assessment evaluation. Also discussed follow-up in office cystoscopy given history of ongoing lower urinary tract symptoms and recent episode of retention with question of enlarged prostate. Will attempt to obtain records from ER visit at [facility] for continuity of care. Patient reports multiple attempts in Bender insertion and being told he had an enlarged prostate by one of the providers in the emergency room. When asked he reports compliance with doxazosin 4 mg at bedtime. Discussed increase of doxazosin and initiation of finasteride given recent episode of retention. Discussed and stressed the importance of drinking plenty of water daily. Discussed if unable to urinate to seek medical treatment. Discussed at length the importance of managing diabetes for improvement in lower urinary tract symptoms as well as overall health and well-being. [facility] Medical History Ischemic cardiomyopathy Atherosclerotic cardiovascular disease History of pancreatitis Hepatitis B Hepatitis C Chronic HFrEF (heart failure with reduced ejection fraction) Cardiomyopathy Type 2 diabetes mellitus with hyperglycemia, with long-term current use of insulin Type 2 diabetes mellitus with diabetic polyneuropathy Hyperlipidemia LDL goal <70 Essential hypertension Myocardial infarction Surgical History Hx of colonoscopy History of appendectomy Hx of heart artery stent H/O coronary artery bypass surgery H/O cardiac catheterization Family History Mother Diabetes Social History Household Members: Spouse Alcohol intake: never Patient Tobacco Use Status: Never used Tobacco Current occupational status: unemployed Review of Systems Const Reports as per HPI Eyes Reports no additional complaints ENT Reports no additional complaints Card Reports as per HPI Resp Reports no additional complaints GI Reports no additional complaints Reports as per HPI Musc Reports no additional complaints Neuro Reports no additional complaints Psych Reports no additional complaints Endo Reports as per HPI Deniz/Lymph Reports as per HPI Physical Exam Const General: cooperative, healthy appearing, comfortable, no acute distress, well developed, alert and awake Orientation/consciousness: patient oriented x3 Limitations: no limitations HEENT Head: Yes normal to inspection, Yes normocephalic and Yes atraumatic Ears: hearing grossly normal bilaterally Eyes General: appearance normal, both eyes and all related structures Neck Neck: Yes normal visual inspection and Yes trachea midline Chest Chest palpation & inspection: normal inspection of the chest Resp Effort & Inspection: normal respiratory effort and able to speak in complete sentences Cardio Rate: regular rate GI Inspection: Yes normal to inspection General: Yes no CVA tenderness Back/Spine/Pelvis Back: no CVA tenderness Skin General skin exam: no rashes or lesions noted Neuro General: patient oriented x3 Extrem General: Yes normal to inspection Psych Appearance: grossly normal and well kempt Mental Status: mental status grossly normal Speech and movement: Normal speech and movement present and Clear speech present Affect: normal affect Attitude: cooperative Thought process: Normal thought process present Thought content: Normal thought content present Insight: Fair insight present (Psych) Judgement: Fair judgement present (Psych) Office Procedures Bladder/Catheter Procedure Details: 120 mls instilled into bladder. 16 fr cath removed. pt tolerated removal well. MAs to bladder scan. 07092-[id number] of Bladder Procedure code (CPT) selection complete Assessment & Plan Assessment & Plan (1) Nephrolithiasis: Code(s): N20.0 - Calculus of kidney (2) Bladder outlet obstruction: Code(s): N32.0 - Bladder-neck obstruction (3) Retention of urine: Code(s): R33.9 - Retention of urine, unspecified Plan Voiding trial performed in office with nursing. Patient successfully passed voiding trial Discussed and stressed the importance of following up as planned for continuity of care Will obtain records from [facility] for continuity of care in further assessment evaluation. Start finasteride as discussed and prescribed. Discussed increase in doxazosin to 8 mg at bedtime. Discussed and stressed the importance of managing diabetes for improvement in lower urinary tract symptoms as well as overall health and well-being. Will obtain PSA in 8-12 weeks Will obtain retroperitoneal ultrasound for further assessment evaluation. Follow-up in office cystoscopy in 2-3 months with imaging and labs to be completed prior; or sooner with any issues, concerns, and or questions. Orders: Orders AMB Bladder/Catheter Procedure Today N32.0 - Bladder-neck obstruction Medications: New finasteride 5 mg PO DAILY 90 tabs 1RF 90 days N13.8 - Other obstructive and reflux uropathy, N40.1 - Benign prostatic hyperplasia with lower urinary tract symptoms, R33.9 - Retention of urine, unspecified Changed From doxazosin 4 mg PO BEDTIME 90 days 90 tabs 1RF N13.8 - Other obstructive and reflux uropathy, N32.0 - Bladder-neck obstruction, N40.1 - Benign prostatic hyperplasia with lower urinary tract symptoms To doxazosin 8 mg (2 x 4 mg) PO BEDTIME 180 tabs 1RF 90 days N13.8 - Other obstructive and reflux uropathy, N32.0 - Bladder-neck obstruction, N40.1 - Benign prostatic hyperplasia with lower urinary tract symptoms Discontinued tadalafil (Cialis) MILES N Group [facility] 33 [id number] Discontinued Reason: Doctor's Order 5 mg PO DAILY 90 days 90 tabs 0RF Coding Level of Care Code Est Pt Level 4 (63890) Diagnoses Nephrolithiasis N20.0 Bladder outlet obstruction N32.0 Retention of urine R33.9 CPT Codes Bladder/Catheter Procedure - CPT: 30028-Zspbuakggt of Bladder ([id number]) Time Spent (min) 45
== END 2023-01-14 10:35 | disposition home or self-care (01) ==
PROVIDERS: PCP Registered Nurse Community Health; Visit Provider Nurse Practitioner Family
DX: R33.9 Retention of urine, unspecified (principal)
CPT/HCPCS: 51700; 99214

== ENCOUNTER → 2023-01-14 09:35 | Outpatient (BNVA) | payer MEDICAID, SELFPAY | PROVIDERS: PCP Registered Nurse Community Health; Visit Provider Nurse Practitioner Family | DX: R33.9 Retention of urine, unspecified (principal); N32.0 Bladder-neck obstruction; N20.0 Calculus of kidney | CPT/HCPCS: 51700; 99212 ==

== ENCOUNTER 2023-01-23 14:27 | Outpatient (AMB) | payer MEDICAID, SELFPAY ==
--- NOTE | 2023-01-23 14:29 | MHC.OFFVIS ---
Intake Vital Signs 01/23/23 14:32 Height 5 ft 7 in Weight 171 lb 15.369 oz BMI 26.9 BP 120/76 Blood Pressure Location Lt brachial Position Sitting Pulse 86 Intake Visit Reasons: 6 mth f/up Intake Note: 6 month follow-up feeling good Employee Development Director Required: Yes Employee Development Director Name: Sweetie nichole Match Marker: Match Marker Present Accompanied by: Family/Other Allergies No Known Allergies [No Known Allergies*] Allergy (Verified 01/23/23 15:00) Medication List - Last Reconciled 01/23/23 by Dede Enriquez NP ammonium lactate 12% 1 appl topical BID aspirin 81 mg PO QAM atorvastatin 80 mg PO DAILY blood sugar diagnostic (FreeStyle Lite Strips) 1 strip miscellaneous QID PRN blood-glucose meter (FreeStyle [place] Lite kit) 1 ea miscellaneous DIRECTED carvedilol 3.125 mg PO BID clopidogrel 75 mg PO DAILY diclofenac sodium 1% 2 grams topical QID 30 days dicyclomine 20 mg PO QID PRN docusate sodium 200 mg (2 x 100 mg) PO BEDTIME doxazosin 8 mg (2 x 4 mg) PO BEDTIME 90 days ezetimibe (Zetia) 10 mg PO DAILY finasteride 5 mg PO DAILY 90 days flash glucose scanning reader (FreeStyle Alfredo 2 [place]) As directed flash glucose sensor (FreeStyle Alfredo 2 Sensor kit) As directed every 2 weeks fluticasone propionate 50 mcg/actuation 1 - 2 sprays intranasal DAILY PRN furosemide (Lasix) 20 mg PO DAILY 90 days gabapentin 800 mg PO BID hydrocortisone 2.5% (Proctozone-HC) 1 appl [place] BID PRN insulin aspart U-100 (Novolog FlexPen U-100 Insulin aspart) 6-8 units with meals, 2 units with snack subcut 4 times a day; insulin glargine (Lantus Solostar U-100 Insulin) 30 units (0.3 mL) subcut DAILY isosorbide mononitrate ER 60 mg PO DAILY lancets (TRUEplus Lancets) 1 gauge miscellaneous QID lisinopril 2.5 mg PO DAILY magnesium citrate 300 mL PO DAILY PRN melatonin 5 mg (2 tab) PO once; metformin 1,000 mg (2 x 500 mg) PO BID 30 days methylcellulose (laxative) (Citrucel) 500 mg PO TID naproxen 500 mg PO nitroglycerin 0.4 mg sublingual Q5M PRN pen needle, diabetic (Pentips) USE SIX TIMES DAILY DIRECTED polyethylene glycol 3350 (Miralax) 17 grams PO DAILY 30 days potassium citrate ER 20 mEq (2 x 10 mEq (1,080 mg)) PO BID 30 days pregabalin 100 mg PO ONCE ranolazine ER (Ranexa) 500 mg PO BID 90 days tizanidine 4 mg PO TID HPI HPI Comments History of Present Illness Details 57-year-old male presents for a 6 month follow-up and reports he has been having some shortness of breath and chest tightness on exertion such as stairs. He has a history of CABG, ischemic Cardiomyopathy, ASCVD, Diabetes Mellitus type 2, and HTN. He reports taking all his medications. [facility] Medical History Ischemic cardiomyopathy Atherosclerotic cardiovascular disease History of pancreatitis Hepatitis B Hepatitis C Chronic HFrEF (heart failure with reduced ejection fraction) Cardiomyopathy Type 2 diabetes mellitus with hyperglycemia, with long-term current use of insulin Type 2 diabetes mellitus with diabetic polyneuropathy Hyperlipidemia LDL goal <70 Essential hypertension Myocardial infarction Surgical History Hx of colonoscopy History of appendectomy Hx of heart artery stent H/O coronary artery bypass surgery H/O cardiac catheterization Family History Mother Diabetes Social History Household Members: Spouse Alcohol intake: never Patient Tobacco Use Status: Never used Tobacco Current occupational status: unemployed Review of Systems Const Denies chills, Denies fatigue, Denies fever(s), Denies frequent falls, Denies weakness, Denies weight gain and Denies weight loss ENT Denies dizziness Card Denies chest pain, Denies leg edema, Denies lightheadedness, Denies palpitations, Denies dyspnea, Denies dyspnea on exertion, Denies orthopnea and Denies other (loss of consciousness) Resp Denies cough, Denies dyspnea and Denies dyspnea on exertion GI Denies hematochezia and Denies change in stool character Musc Denies abnormal gait, Denies muscle weakness, Denies numbness, Denies radiating pain into limb and Denies tingling Neuro Denies abnormal gait, Denies dizziness, Denies frequent falls, Denies numbness, Denies tingling and Denies weakness Endo Denies fatigue and Denies palpitations Physical Exam Vital Signs: Last Vital Signs Pulse 86 01/23/23 14:32 BP 120/76 01/23/23 14:32 BMI result Body Mass Index 26.9 Const General: healthy appearing and no acute distress Orientation/consciousness: patient oriented x3 HEENT Head: Yes normal to inspection Eyes General: appearance normal, both eyes and all related structures Neck Neck: Yes normal visual inspection Chest Chest palpation & inspection: normal inspection of the chest Resp Effort & Inspection: normal respiratory effort Auscultation: clear to auscultation bilaterally Cardio Jugular venous distension: no JVD Palpation: normal PMI Rate: regular rate Rhythm: regular rhythm Heart sounds: S1 normal heart sound present, S2 normal heart sound present, no click, no gallops, no murmurs and no rubs GI Inspection: Yes normal to inspection Palpation (GI): Soft to palpation Skin General skin exam: no rashes or lesions noted Neuro General: patient oriented x3 Extrem General: Yes normal to inspection Psych Appearance: grossly normal Assessment & Plan Assessment & Plan (1) Atherosclerotic cardiovascular disease: Code(s): I25.10 - Atherosclerotic heart disease of [place] coronary artery without angina pectoris (2) Chest pain: Code(s): R07.9 - Chest pain, unspecified Qualifiers: Chest pain type: other chest pain Qualified Code(s): R07.89 - Other chest pain (3) Ischemic cardiomyopathy: Code(s): I25.5 - Ischemic cardiomyopathy (4) Essential hypertension: Code(s): I10 - Essential (primary) hypertension Plan Due to history will get another cardiac cath. Patient is understanding of the plan. Continue medications as prescribed and istructed to go to the ED if any recurrent chest discomfort. Keep blood pressures within goal. Will have him follow-up post cath. Orders: Orders Prothrombin Time INR 01/23/23 I25.10 - Atherosclerotic heart disease of [place] coronary artery without angina pectoris, R07.9 - Chest pain, unspecified Cardiac Cath LT w PCI 01/23/23 I25.10 - Atherosclerotic heart disease of [place] coronary artery without angina pectoris, R07.9 - Chest pain, unspecified Complete Blood Count Auto Diff 01/23/23 I25.10 - Atherosclerotic heart disease of [place] coronary artery without angina pectoris, R07.9 - Chest pain, unspecified Basic Metabolic Panel 01/23/23 I25.10 - Atherosclerotic heart disease of [place] coronary artery without angina pectoris, R07.9 - Chest pain, unspecified Coding Level of Care Code Est Pt Level 4 (85509) Diagnoses Atherosclerotic cardiovascular disease I25.10 Chest pain R07.89 Chest pain type: other chest pain Ischemic cardiomyopathy I25.5 Essential hypertension I10
[2023-01-23 14:32] VITALS: BP 120/76; PULSE 86; BMI 26.9
== END 2023-01-23 15:06 | disposition home or self-care (01) ==
PROVIDERS: PCP Registered Nurse; Visit Provider Nurse Practitioner
DX: I25.10 Atherosclerotic heart disease of native coronary artery without angina pectoris (principal); R07.89 Other chest pain; I25.5 Ischemic cardiomyopathy; I10 Essential (primary) hypertension
CPT/HCPCS: 99214

== ENCOUNTER → 2023-01-23 14:27 | Outpatient (BNVA) | payer MEDICAID, SELFPAY | PROVIDERS: PCP Registered Nurse; Visit Provider Nurse Practitioner | DX: I25.10 Atherosclerotic heart disease of native coronary artery without angina pectoris (principal); R07.89 Other chest pain; I25.5 Ischemic cardiomyopathy; I10 Essential (primary) hypertension | CPT/HCPCS: 99212 ==

== ENCOUNTER 2023-02-03 08:48 | Outpatient (REF) | payer MEDICAID, SELFPAY ==
[2023-02-03 09:14] LABS: MANUAL DIFF FLAG NO
[2023-02-03 09:42] LABS: Basophils Percent Auto 0.6 % (0-2); Eosinophils Absolute Auto 0.2 X10*3/uL (0.0-0.4); Eosinophils Percent Auto 3.3 % (0-4); Hemoglobin 13.9 g/dl (14.0-18.0); Imm Gran Abs Auto 0.02 X10*3/uL (0.00-0.03); Imm Gran Pct Auto 0.4 % (0.0-0.4); Lymphocytes Absolute Auto 1.3 X10*3/uL (1.2-4.9); Lymphocytes Percent Auto 23.8 % (20-40); Mean Corpuscular HGB Conc 33.9 g/dl (31.0-36.0); Mean Corpuscular Volume 91.3 fL (80.0-98.0); Mean Platelet Volume 10.8 fL (9.4-12.4); Monocytes Absolute Auto 0.4 X10*3/uL (0.1-1.2); Monocytes Percent Auto 7.9 % (2-11); Neutrophils Absolute Auto 3.5 x10*3/uL (2.0-8.3); Platelet Count 157 X10*3/uL (160-400); Red Blood Count 4.49 X10*6/uL (4.60-5.80); Red Cell Distribution Width 12.3 % (11.0-16.0); White Blood Count 5.4 X10*3/uL (4.8-10.8)
[2023-02-03 10:05] LABS: INTERNATIONAL NORM RATIO 0.9 (0.9-1.1); Prothrombin Time 10.8 SEC (11.1-13.3)
[2023-02-03 10:18] LABS: Alanine Aminotransferase 17 U/L (0-40); Albumin Level 4.1 g/dL (3.5-5.0); Alkaline Phosphatase 101 U/L (39-117); Anion Gap 11 (12-20); Aspartate Amino Transferase 18 U/L (5-37); Bilirubin Total 1.4 mg/dL (0.0-1.0); Blood Urea Nitrogen 20 mg/dL (9-16); Carbon Dioxide 25 mmol/L (22-29); Chloride 111 mmol/L (96-108); Estimated Glomerular Filt Rate > 60; Glucose Random 97 mg/dL (60-115); Potassium 4.6 mmol/L (3.3-5.1); Sodium 142 mmol/L (135-145); Total Protein 6.6 g/dL (6.5-8.0)
== END 2023-02-03 08:49 | disposition home or self-care (01) ==
LOC: HO.LAB 08:48
PROVIDERS: PCP Registered Nurse; Visit Provider Nurse Practitioner
DX: I25.10 Atherosclerotic heart disease of native coronary artery without angina pectoris (principal); R07.9 Chest pain, unspecified; K58.9 Irritable bowel syndrome, unspecified
CPT/HCPCS: 36415; 80053; 85025; 85610

== ENCOUNTER → 2023-02-06 23:59 | Outpatient (BNV) | payer MEDICAID, SELFPAY | PROVIDERS: PCP Registered Nurse; Visit Provider Internal Medicine Cardiovascular Disease | DX: I20.89 Other forms of angina pectoris (principal); Z95.1 Presence of aortocoronary bypass graft | CPT/HCPCS: 93459; 99152 ==

== ENCOUNTER 2023-02-14 10:04 | Outpatient (REF) | payer MEDICAID, SELFPAY ==
--- NOTE | ~2023-02-14 | US_ITS ---
EXAMINATION: US RETROPERITONEAL COMPLETE (RENAL) CLINICAL INFORMATION: Urgency of urination. COMPARISON: Ultrasound abdomen complete 01/09/2023. CT abdomen and pelvis 02/11/2021. X-ray abdomen 02/28/2020. X-ray KUB 11/03/2019. TECHNIQUE: Real-time imaging of the kidneys and bladder. Limited visualization due to bowel gas. FINDINGS: RIGHT KIDNEY: 11.7 x 5.6 x 5.9 cm (SAG x AP x TRV). No right renal lower pole 0.4 cm calculus. No renal calculi. Renal cortical thickness is normal. Limited visualization. LEFT KIDNEY: 11.1 x 5.6 x 4.6 cm (SAG x AP x TRV). No hydronephrosis. Left renal lower pole echogenic focus possibly representing a 2-3 mm calculus. Renal cortical thickness is normal. Limited visualization. BLADDER: Well distended. Mild diffuse thickening and mucosal irregularity of the bladder wall. Bilateral ureteral jets are demonstrated. Prevoid bladder volume is 235 mL. Postvoid bladder volume is 35.5 mL. ADDITIONAL FINDINGS: 1. Prostate volume 35.6 mL. 2. Incidental note on limited views of the liver of diffuse increase in echogenicity of the liver, characteristic of primary hepatocellular disease, possibly due to hepatic steatosis. US/US retroperitoneal comp IMPRESSION: 1. Nephrocalcinosis. No hydronephrosis. 2. Enlarged prostate. Mild diffuse thickening and mucosal irregularity of the bladder wall.
== END 2023-02-14 10:05 | disposition home or self-care (01) ==
LOC: HO.US 10:04
PROVIDERS: PCP Registered Nurse; Visit Provider Nurse Practitioner Family
DX: R39.15 Urgency of urination (principal); N20.0 Calculus of kidney
CPT/HCPCS: 76770

== ENCOUNTER 2023-02-22 23:57 | Emergency (ER) | payer MEDICAID, SELFPAY ==
--- NOTE | ~2023-02-22 | XR_ITS ---
EXAMINATION: XR CHEST CLINICAL INFORMATION: Chest pain. COMPARISON: 02/22/2020 TECHNIQUE: Frontal view of the chest was obtained. FINDINGS: The cardiac mediastinal silhouette is within normal limits and stable. There has been a prior median sternotomy. There is no focal lung consolidation or pleural effusion. The soft tissues are unremarkable. XR/XR chest 1V IMPRESSION: No active cardiopulmonary disease.
--- NOTE | 2023-02-23 | ECG_ITS ---
Test Reason : CHEST PAIN Blood Pressure : / mmHG Vent. Rate : 072 BPM Atrial Rate : 072 BPM P-R Int : 130 ms QRS Dur : 134 ms QT Int : 438 ms P-R-T Axes : 045 263 050 degrees QTc Int : 479 ms Poor data quality Normal sinus rhythm Right bundle branch block Abnormal ECG When compared with ECG of 20-MAR-2020 14:04, No significant change was found Referred By: Generic ED Physician Electronically Signed By:ISMAEL KATZ MD
[2023-02-23 00:21] VITALS: BP 121/86; PULSE 77; RESP 16; TEMP 36.7; O2SAT 98; BMI 27.1
[2023-02-23 00:23] LABS: Hematocrit 40.2 % (42.0-52.0); Mean Corpuscular HGB Conc 34.8 g/dl (31.0-36.0); Mean Corpuscular Hemoglobin 31.4 pg (27.0-33.0); Mean Corpuscular Volume 90.1 fL (80.0-98.0); Mean Platelet Volume 10.4 fL (9.4-12.4); Platelet Count 188 X10*3/uL (160-400); Red Blood Count 4.46 X10*6/uL (4.60-5.80); Red Cell Distribution Width 12.3 % (11.0-16.0); White Blood Count 5.2 X10*3/uL (4.8-10.8)
[2023-02-23] MEDS: Ketorolac Tromethamine 30 MG/ML VIAL 15 MG IVPUSH (00:28)
--- NOTE | 2023-02-23 00:33 | PC.NURSE ---
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 Chest xray taken. Notified FARSHAD Garzon.
[2023-02-23 00:37] LABS: Alanine Aminotransferase 18 U/L (0-40); Albumin Level 4.2 g/dL (3.5-5.0); Alkaline Phosphatase 99 U/L (39-117); Anion Gap 12 (12-20); Aspartate Amino Transferase 22 U/L (5-37); Bilirubin Total 1.3 mg/dL (0.0-1.0); Blood Urea Nitrogen 24 mg/dL (9-16); Calcium 8.9 mg/dL (8.4-10.2); Carbon Dioxide 25 mmol/L (22-29); Chloride 109 mmol/L (96-108); Creatinine Clr Calc Pharmacy 69.7; Estimated Glomerular Filt Rate > 60; Glucose Random 141 mg/dL (60-115); Potassium 4.4 mmol/L (3.3-5.1); Sodium 142 mmol/L (135-145); Total Protein 6.8 g/dL (6.5-8.0)
[2023-02-23 00:44] VITALS: BP 114/74; PULSE 68; RESP 18; O2SAT 94
--- NOTE | 2023-02-23 02:03 | ED_ITS ---
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 He denies any headache/dizziness/nausea Related Data Home Medications Medication Instructions Recorded Confirmed atorvastatin 80 mg tablet 80 mg PO DAILY 04/11/20 01/23/23 carvedilol 3.125 mg tablet 3.125 mg PO BID 04/11/20 01/23/23 clopidogrel 75 mg tablet 75 mg PO DAILY 04/11/20 01/23/23 ezetimibe 10 mg tablet (Zetia) 10 mg PO DAILY 04/11/20 01/23/23 gabapentin 800 mg tablet 800 mg PO BID 04/11/20 01/23/23 isosorbide mononitrate 60 mg 60 mg PO DAILY 04/11/20 01/23/23 tablet,extended release 24 hr lisinopril 2.5 mg tablet 2.5 mg PO DAILY 04/11/20 01/23/23 melatonin 5 mg capsule See Rx Instructions PO ONCE 04/11/20 01/23/23 ammonium lactate 12 % topical cream 1 appl topical BID 07/11/21 01/23/23 fluticasone propionate 50 1 - 2 spray intranasal DAILY PRN 01/17/22 01/23/23 mcg/actuation nasal congestion spray,suspension naproxen 500 mg tablet 500 mg PO moderate pain 06/13/22 01/23/23 tizanidine 4 mg tablet 4 mg PO TID 06/13/22 01/23/23 aspirin 81 mg chewable tablet 81 mg PO QAM 07/25/22 01/23/23 pregabalin 100 mg capsule 100 mg PO ONCE 07/25/22 01/23/23 Previous Rx's Medication Instructions Recorded magnesium citrate 300 ml PO DAILY PRN constipation 02/28/20 #296 mL blood sugar diagnostic (FreeStyle 1 strip miscellaneous QID PRN for 09/19/20 Lite Strips) diabetes mellitus #150 strips blood-glucose meter (FreeStyle 1 ea miscellaneous DIRECTED #1 09/26/20 [place] Lite kit) kit lancets 33 gauge (TRUEplus Lancets) 1 gauge miscellaneous QID for 10/12/20 diabetes mellitus #100 ea flash glucose scanning reader #1 ea 01/01/21 (FreeStyle Alfredo 2 Fernley) flash glucose sensor (FreeStyle #2 ea 01/01/21 Alfredo 2 Sensor kit) dicyclomine 20 mg tablet 20 mg PO QID PRN abdominal pain 02/06/21 #20 tabs insulin glargine 100 unit/mL (3 30 unit (0.3 mL) subcut DAILY #15 08/06/21 mL) subcutaneous pen (Lantus mL Solostar U-100 Insulin) metformin 500 mg tablet 1,000 mg (2 x 500 mg) PO BID 30 12/12/21 days #120 tabs pen needle, diabetic 32 gauge x See Rx Instructions .Route 01/31/22 (Pentips) .COMPLEX #200 ea diclofenac sodium 1 % topical gel 2 g topical QID 30 days #100 grams 02/27/22 insulin aspart U-100 100 unit/mL See Rx Instructions subcut QID #30 03/27/22 (3 mL) subcutaneous pen (Novolog mL FlexPen U-100 Insulin aspart) hydrocortisone 2.5 % topical cream 1 appl LA BID PRN hemorrhoids #30 06/13/22 with perineal applicator grams (Proctozone-HC) ranolazine 500 mg tablet,extended 500 mg PO BID 90 days #180 tabs 06/17/22 release,12 hr (Ranexa) methylcellulose (laxative) 500 mg 500 mg PO TID #90 tabs 09/16/22 tablet (Citrucel) polyethylene glycol 3350 17 17 g PO DAILY 30 days #510 grams 09/16/22 gram/dose oral powder (Miralax) furosemide 20 mg tablet (Lasix) 20 mg PO DAILY 90 days #90 tabs 10/03/22 nitroglycerin 0.4 mg sublingual 0.4 mg sublingual Q5M PRN angina 10/03/22 tablet pectoris #30 tabs docusate sodium 100 mg capsule 200 mg (2 x 100 mg) PO BEDTIME #60 12/25/22 ea doxazosin 4 mg tablet 8 mg (2 x 4 mg) PO BEDTIME 90 days 01/14/23 #180 tabs finasteride 5 mg tablet 5 mg PO DAILY 90 days #90 tabs 01/14/23 potassium citrate 10 mEq (1,080 20 meq (2 x 10 mEq (1,080 mg)) PO 02/12/23 mg) tablet,extended release BID 30 days #120 tabs cyclobenzaprine 5 mg tablet 5 mg PO BEDTIME PRN muscle spasm 02/23/23 #4 tabs ketorolac 10 mg tablet 10 mg PO Q6H PRN pain 5 days #20 02/23/23 tabs Allergies Allergy/AdvReac Type Severity Reaction Status Date / Time No Known Allergies Allergy Verified 01/23/23 15:00 [No Known Allergies*] Review of Systems 2 Review of Systems: Pertinent positives and negatives as stated in [facility]PI [facility] Past Medical History Source: nursing notes reviewed Medical History Ischemic cardiomyopathy Atherosclerotic cardiovascular disease History of pancreatitis Hepatitis B Hepatitis C Chronic HFrEF (heart failure with reduced ejection fraction) Cardiomyopathy Type 2 diabetes mellitus with hyperglycemia, with long-term current use of insulin Type 2 diabetes mellitus with diabetic polyneuropathy Hyperlipidemia LDL goal <70 Essential hypertension Myocardial infarction Surgical History Hx of colonoscopy History of appendectomy Hx of heart artery stent H/O coronary artery bypass surgery H/O cardiac catheterization Family History Family History Mother Diabetes Social History Social History Household Members: Spouse Alcohol intake: never Patient Tobacco Use Status: Never used Tobacco Advance Directives: No Advance Directives Information Provided: No Current occupational status: unemployed Physical Exam 2 Vital Signs: Vital Signs: Last Vital Signs Temp 98.0 F 02/23/23 00:21 Pulse 68 02/23/23 00:44 Resp 18 02/23/23 00:44 BP 114/74 02/23/23 00:44 Pulse Ox 94 02/23/23 00:44 O2 Del Method Room Air 02/23/23 00:44 BMI result Body Mass Index 27.1 VITAL SIGNS: Reviewed. GENERAL: Well developed, well nourished, in no acute distress. HEAD: Normocephalic/atraumatic EYES: PERRLA, EOMI EARS: Ext canals without abnormality NOSE: Nares patent bilateral OROPHARYNX: no oral lesions noted, posterior pharynx clear NECK: Supple, no adenopathy LUNGS: Normal breath sounds. No adventitious sounds or accessory muscle use. SpO2<94>; CHEST WALL: In the space between the medial border of the scapula and the spine patient has significant firmness there consistent with spasm and reproducible chest pain. CARDIOVASCULAR: Regular rate and rhythm without noted murmurs, no JVD or lower extremity edema. ABDOMEN: Soft, non-tender, non-distended with bowel sounds. MUSCULOSKELETAL: No tenderness, deformities, or effusions noted on gross inspection. EXTREMITIES: No cyanosis, clubbing or edema. SKIN: Inspection of the skin reveals no rashes NEUROLOGIC: Alert and oriented x 4. Strength and sensation to light touch were grossly intact x 4. Medications Administered Discontinued Medications Generic Name Dose Route Start Last Admin Trade Name Freq PRN Reason Stop Dose Admin Ketorolac Tromethamine 15 mg 02/23/23 00:23 02/23/23 00:28 Ketorolac Tromethamine 30 Mg/Ml Vial IVPUSH 02/23/23 00:24 15 mg ONCE ONE Administration Medical Decision Making Medical Decision Making [facility] Narrative: 57-year-old male with history and clinical presentation, DDX: Muscle spasm/musculoskeletal pain little clinical suspicion for pneumonia/ACS and location of pain unlikely to be associated with gallbladder or renal colic symptoms. IV was started and patient received 15 mg of Toradol. I reviewed all investigations and hematologic indices are negative for leukocytosis or left shift and there is no anemia or thrombocytopenia. Chemistry indices are negative for HAZEL and electrolyte/liver enzymes are without derangements other than chronically stable elevated T bili. Troponin is chronically detectable there are no acute changes on EKG. Chest x-ray negative for infiltrate or venous congestion and otherwise my interpretation is in agreement with radiology's impression. 0145: On re-evaluation patient reports that his pain has improved after taking the medicine through the IV and he will also be provided with a lidocaine patch as well as Tylenol. Differential Diagnosis Differential Diagnoses: The differential diagnosis associated with the presentation includes Please see the discussion above Admission/Observation Consideration of admission/observation: Escalation of care including admission/observation considered Please see the discussion above Lab Data [facility] Lab Attestation statement: I reviewed the patient's lab results. Please see the discussion above 02/23/23 00:17 02/23/23 00:17 Labs: Lab Results 02/23/23 Range/Units 00:17 WBC 5.2 (4.8-10.8) X10*3/uL RBC 4.46 L (4.60-5.80) X10*6/uL Hgb 14.0 (14.0-18.0) g/dl Hct 40.2 L (42.0-52.0) % MCV 90.1 (80.0-98.0) fL MCH 31.4 (27.0-33.0) pg MCHC 34.8 (31.0-36.0) g/dl RDW 12.3 (11.0-16.0) % Plt Count 188 (160-400) X10*3/uL MPV 10.4 (9.4-12.4) fL Absolute Nucleated RBC 0.000 (0.0-0.012) X10*3/uL Nucleated RBC % (auto) 0.0 (0.0-0.2) /100WBC Sodium 142 (135-145) mmol/L Potassium 4.4 (3.3-5.1) mmol/L Chloride 109 H (96-108) mmol/L Carbon Dioxide 25 (22-29) mmol/L Anion Gap 12 (12-20) BUN 24 H (9-16) mg/dL Creatinine 1.13 (0.5-1.4) mg/dL Estim Creat Clear Calc 69.7 Estimated GFR > 60 Random Glucose 141 H (60-115) mg/dL Calcium 8.9 (8.4-10.2) mg/dL Total Bilirubin 1.3 H (0.0-1.0) mg/dL AST 22 (5-37) U/L ALT 18 (0-40) U/L Alkaline Phosphatase 99 (39-117) U/L Troponin I High Sens 3.0 (<3.5-35.0) ng/L Total Protein 6.8 (6.5-8.0) g/dL Albumin 4.2 (3.5-5.0) g/dL Independent Interpretation I performed an independent interpretation of an: EKG Interpretation: Normal sinus rhythm with right bundle branch block at baseline, HR-67, no STEMI, LA/QTC is within normal limits. Radiology Impression Discussion of test interpretation with radiology: I have reviewed the radiologist's reading. Radiologist Impression: Please see the discussion above External Record Review External record reviewed: Outpatient record, Prior outpatient labs and Prior outpatient radiology Chronic Conditions Patient?s care impacted by: Diabetes and Hypertension Critical Care Time Critical Care Time Critical Care Time: Yes Total Critical Care Time: 30 Attestation: I personally attest to this time spent taking care of the patient. Discharge Plan Discharge Clinical Impression: Atypical chest pain, Muscle spasm, Pain, chest wall Patient Disposition: Home, Self-Care Instructions: Muscle Spasm (ED), Chest Wall Pain (ED) Additional Instructions: 1. Reanudar todos los medicamentos caseros seg?n lo recetado. 2. Tylenol 1000 mg, por v?a oral, cada 6 horas seg?n sea necesario para controlar el dolor. No exceda los 4000 mg en 24 horas. 3. Parche de lidoca?na, apl?quelo en el ?jane de m?xima sensibilidad delmy se indica en el paquete exterior. 4. Le he recetado un relajante muscular que tambi?n le ayudar? con campuzano dolor. 5. Visita de seguimiento con campuzano m?dico de atenci?n primaria el lunes por la ma?berto. Regrese a la abida de emergencias si los s?ntomas empeoran. 1. Resume all home medications as prescribed. 2. Tylenol 1000 mg, orally, every 6 hours as needed for pain control. Do not exceed 4000 mg within 24 hours. 3. Lidocaine patch, apply to area of maximal tenderness as directed on the outside packaging. 4. I have given you a prescription for muscle relaxant which will also help with your pain. 5. Follow-up with your primary care doctor on Friday morning. Return to the ER for any worsening symptoms. Prescriptions: New ketorolac 10 mg tablet 10 mg PO Q6H PRN (Reason: pain) 5 Days Qty: 20 0RF Rx Instructions: Patient received Toradol in the emergency room cyclobenzaprine 5 mg tablet 5 mg PO BEDTIME PRN (Reason: muscle spasm) Qty: 4 0RF No Action blood sugar diagnostic [FreeStyle Lite Strips] Strip 1 strip miscellaneous QID PRN (Reason: for diabetes mellitus) Qty: 150 11RF blood-glucose meter [FreeStyle [place] Lite] Kit 1 ea miscellaneous DIRECTED Qty: 1 0RF lancets [TRUEplus Lancets] 33 gauge misc 1 gauge miscellaneous QID Qty: 100 11RF metformin 500 mg tablet 1,000 mg PO BID 30 Days Qty: 120 4RF pen needle, diabetic [Pentips] 32 gauge x 5/32 needle See Rx Instructions .ROUTE .COMPLEX Qty: 200 2RF Dose Instruction: USE SIX TIMES DAILY DIRECTED Rx Instructions: USE SIX TIMES DAILY DIRECTED insulin aspart U-100 [Novolog FlexPen U-100 Insulin] 100 unit/mL (3 mL) insulin pen See Rx Instructions subcut QID Qty: 30 0RF Rx Instructions: 6-8 units with meals, 2 units with snack subcut 4 times a day; ranolazine [Ranexa] 500 mg tablet extended release 12 hr 500 mg PO BID 90 Days Qty: 180 3RF furosemide [Lasix] 20 mg tablet 20 mg PO DAILY 90 Days Qty: 90 3RF nitroglycerin 0.4 mg tablet, sublingual 0.4 mg sublingual Q5M PRN (Reason: angina pectoris) Qty: 30 3RF Rx Instructions: do not exceed 3 doses per episode docusate sodium 100 mg capsule 200 mg PO BEDTIME Qty: 60 5RF potassium citrate 10 mEq (1,080 mg) tablet extended release 20 meq PO BID 30 Days Qty: 120 3RF magnesium citrate Solution 300 ml PO DAILY PRN (Reason: constipation) Qty: 296 0RF dicyclomine 20 mg tablet 20 mg PO QID PRN (Reason: abdominal pain) Qty: 20 0RF clopidogrel 75 mg tablet 75 mg PO DAILY carvedilol 3.125 mg tablet 3.125 mg PO BID Rx Instructions: must administer with a meal/food lisinopril 2.5 mg tablet 2.5 mg PO DAILY isosorbide mononitrate 60 mg tablet extended release 24 hr 60 mg PO DAILY atorvastatin 80 mg tablet 80 mg PO DAILY melatonin 5 mg capsule See Rx Instructions PO ONCE Rx Instructions: 5 mg (2 tab) PO once; gabapentin 800 mg tablet 800 mg PO BID ezetimibe [Zetia] 10 mg tablet 10 mg PO DAILY (DME) FreeStyle Alfredo 2 [place] Misc See Rx Instructions .ROUTE .MEDSUPPLY Qty: 1 0RF Rx Instructions: As directed (DME) FreeStyle Alfredo 2 Sensor Kit See Rx Instructions .ROUTE .MEDSUPPLY Qty: 2 11RF Rx Instructions: As directed every 2 weeks ammonium lactate 12 % cream 1 appl topical BID Lantus Solostar U-100 Insulin 100 unit/mL (3 mL) insulin pen 30 unit subcut DAILY Qty: 15 4RF fluticasone propionate 50 mcg/actuation spray,suspension 1 - 2 spray intranasal DAILY PRN (Reason: congestion) aspirin 81 mg tablet,chewable 81 mg PO QAM diclofenac sodium 1 % gel 2 g topical QID 30 Days Qty: 100 8RF Rx Instructions: apply to hand; for hand includes palm/fingers/back of hand pregabalin 100 mg capsule 100 mg PO ONCE naproxen 500 mg tablet 500 mg PO tizanidine 4 mg tablet 4 mg PO TID hydrocortisone [Proctozone-HC] 2.5 % cream with perineal applicator 1 appl LA BID PRN (Reason: hemorrhoids) Qty: 30 3RF Rx Instructions: apply LA BID prn Citrucel 500 mg tablet 500 mg PO TID Qty: 90 5RF polyethylene glycol 3350 [Miralax] 17 gram/dose powder 17 g PO DAILY 30 Days Qty: 510 6RF doxazosin 4 mg tablet 8 mg PO BEDTIME 90 Days Qty: 180 1RF finasteride 5 mg tablet 5 mg PO DAILY 90 Days Qty: 90 1RF Referrals: [facility] [Primary Care Provider] - Print Language: Azeri
[2023-02-23 02:28] VITALS: BP 109/66; PULSE 65; RESP 12; TEMP 36.8; O2SAT 95
[2023-02-23 03:01] LABS: Troponin-I High Sensitivity < 2.7 ng/L (<3.5-35.0)
[2023-02-23] MEDS: Acetaminophen 325 MG TABLET 975 MG PO (03:05)
[2023-02-23] MEDS: Lidocaine 4 % Patch ADH..PATCH 1 PATCH TRANSDERMA (03:06)
--- NOTE | 2023-02-23 04:15 | PC.NURSE ---
pt resting in bed with eyes closed, breathing even and unlabored. no apparent distress noted at this time.
[2023-02-23 04:38] VITALS: BP 116/65; PULSE 80; RESP 12; O2SAT 97
== END 2023-02-23 04:49 | disposition home or self-care (01) ==
PROVIDERS: Student in an Organized Health Care Education/Training Program; Emergency Provider Emergency Medicine
DX: R07.89 Other chest pain (principal); M62.838 Other muscle spasm; E11.9 Type 2 diabetes mellitus without complications; I11.0 Hypertensive heart disease with heart failure; I50.9 Heart failure, unspecified; E78.5 Hyperlipidemia, unspecified; I25.2 Old myocardial infarction; B19.10 Unspecified viral hepatitis B without hepatic coma; B19.20 Unspecified viral hepatitis C without hepatic coma; Z79.899 Other long term (current) drug therapy; Z79.4 Long term (current) use of insulin; Z79.02 Long term (current) use of antithrombotics/antiplatelets
CPT/HCPCS: 36415; 71045; 80053; 84484; 85027; 93005; 96374; 99284; J1885

== ENCOUNTER 2023-06-05 09:10 | Outpatient (AMB) | payer MEDICAID, SELFPAY ==
--- NOTE | 2023-06-05 09:12 | A.OFFVIS_ITS ---
Intake Intake Visit Reasons: Cysto Intake Note: Patient is Present for Cystoscopy Urology Med: Finasteride, Doxazosin, Antibiotic Allergy: None Blood Thinner: Aspirin, Plavix URO- G Disposable Cystoscope lot:[id number] exp:08/25/2024 Utility Bill Complaints Investigator Required: Yes Utility Bill Complaints Investigator Language: Lithuanian Allergies No Known Allergies [No Known Allergies*] Allergy (Verified 06/05/23 09:18) HPI HPI Comments History of Present Illness Details Barrett is a pleasant Lithuanian-speaking male. He is a patient of Dr. Basilio. He is seen for following urologic conditions - lower urinary tract symptoms - erectile dysfunction - background diab etes with long-term insulin use Lower urinary tract imaging complete Here for cystoscopy Prostate 35 cc Open bladder neck Lower urinary tract symptoms History of incomplete bladder emptying with weakness of stream Previously seen at [facility] for urinary retention with 600 cc and Bender catheter use in 2022 Managed with doxazosin 4 mg daily, finasteride initiated at time of retention Imaging 05/07 - Mild diffuse thickening and mucosal irregularity of the bladder wall. Bilateral ureteral jets are demonstrated. Prevoid bladder volume is 235 mL. Postvoid bladder volume is 35.5 mL. Prostate volume 35.6 mL. Cystoscopy 06/07 open bladder neck PFSH Medical History Ischemic cardiomyopathy Atherosclerotic cardiovascular disease History of pancreatitis Hepatitis B Hepatitis C Chronic HFrEF (heart failure with reduced ejection fraction) Cardiomyopathy Type 2 diabetes mellitus with hyperglycemia, with long-term current use of insulin Type 2 diabetes mellitus with diabetic polyneuropathy Hyperlipidemia LDL goal <70 Essential hypertension Myocardial infarction Surgical History Hx of colonoscopy History of appendectomy Hx of heart artery stent H/O coronary artery bypass surgery H/O cardiac catheterization Family History Mother Diabetes Social History Household Members: Spouse Alcohol intake: never Patient Tobacco Use Status: Never used Tobacco Current occupational status: unemployed Review of Systems Const Denies chills and Denies fever(s) Card Reports no additional complaints and Denies syncope Resp Denies cough GI Denies abdominal pain and Denies heartburn Reports as per HPI and Denies change in libido Neuro Denies syncope Psych Denies change in libido Endo Denies change in libido Physical Exam Const General: cooperative, healthy appearing, comfortable and no acute distress Orientation/consciousness: patient oriented x3 HEENT Face and sinus: Yes normal facial exam Mouth: moist mucous membranes Neck Neck: Yes normal visual inspection, Yes full ROM and Yes trachea midline Chest Chest palpation & inspection: normal inspection of the chest Resp Effort & Inspection: normal respiratory effort, able to speak in complete sentences and no respiratory distress GI Inspection: Yes normal to inspection Back/Spine/Pelvis Cervical Spine: normal cervical lordosis Thoracic/Lumbar Spine: thoracic and lumbar spine normal to inspection Skin General skin exam: no rashes or lesions noted Neuro General: patient oriented x3, gait normal, tone normal and moves all extremities Extrem General: Yes normal to inspection and Yes capillary refill normal Office Procedures Cystoscopy Consent Discussed risk and benefit or proposed procedure with the patient. Information consent for procedure given to the patient. Discussed technical aspects, risks, benefits and alternatives in full. Addressed all of the patient's questions and concerns regarding the procedure. The patient demonstrated knowledge and understanding. They wish to proceed with this procedure. Preparation The patient was prepped in the usual manner. A consulting business developer was present and in the room. Genitalia was prepped with betadine solution in a sterile manner. Lidocaine Jelly 2% was placed into the urethra and 16Fr flexible Olympus cystoscope was inserted into the meatus after adequate lubrication. Procedure Meatus uncircumcised Urethra anterior and posterior urethra normal Prostatic Urethra unremarkable open bladder neck Bladder examination with retroflexion of cystoscope Bladder Orifices normal shape and position Bladder Capacity medium Trabeculations grade 1 Cellule Formation - Diverticulum Formation - Mucosal Erythema - Bladder Tumor - [id number] DISPOSABLE SCOPE URO-G FLEXIBLE SCOPE Procedure code (CPT) selection complete Office Meds lidocaine HCl 2 % mucosal jelly in applicator Performing Provider: Nigel Arboleda MD Performing Location[place] [facility] [place] [facility] Administered by: Blue Yee LPN on 06/05/23 09:34 Dose Route Admin Location Dispensed Lot Number Expiration Date ND Tower Watchman 10 mL intra-urethral 10 mL nitrofurantoin monohydrate/macrocrystals 100 mg capsule Performing Provider: Nigel Arboleda MD Performing Location: [facility] [place] [facility] Administered by: Blue Yee LPN on 06/05/23 09:34 Dose Route Admin Location Dispensed Lot Number Expiration Date NDC Tower Watchman 100 mg PO 1 cap naproxen 500 mg tablet Performing Provider: Nigel Arboleda MD Performing Location: [facility] [place] [facility] Administered by: Blue Yee LPN on 06/05/23 09:34 Dose Route Admin Location Dispensed Lot Number Expiration Date NDC Tower Watchman 500 mg PO 1 tab Results AMB Urinalysis, Automated UA Leukoctes 0 Keri/uL Last Edit by BONNIE Acevedo on 06/05/23 09:24 UA Nitrite Negative Last Edit by BONNIE Acevedo on 06/05/23 09:24 UA Urobilinogen 0.2 mg/dL Last Edit by BONNIE Acevedo on 06/05/23 09:2 4 UA Protein 30 mg/dL Last Edit by BONNIE Acevedo on 06/05/23 09:24 UA pH 5.5 Last Edit by BONNIE Acevedo on 06/05/23 09:24 UA Blood 0 Jarett/uL Last Edit by BONNIE Acevedo on 06/05/23 09:24 UA Specific [place] 1.030 Last Edit by BONNIE Acevedo on 06/05/23 09: 24 UA Ketone Negative Last Edit by BONNIE Acevedo on 06/05/23 09:24 UA Bilirubin 1 mg/dL Last Edit by BONNIE Acevedo on 06/05/23 09:24 UA Glucose 500 mg/dL Last Edit by BONNIE Acevedo on 06/05/23 09:24 Results Reviewed Results Reviewed: Laboratory Last Values Urine pH (Auto) 5.5 06/05/23 09:19 Specific [place] (Auto) 1.030 06/05/23 09:19 Urine Protein (Auto) 30 mg/dL 06/05/23 09:19 Glucose (UA)(Auto) 500 mg/dL 06/05/23 09:19 Urine Ketones (Auto) Negative 06/05/23 09:19 Urine Blood (Auto) 0 Jarett/uL 06/05/23 09:19 Urine Nitrite (Auto) Negative 06/05/23 09:19 Urine Bilirubin (Auto) 1 mg/dL 06/05/23 09:19 Urine Urobilinogen (Auto) 0.2 mg/dL 06/05/23 09:19 Leukocyte Esterase (Auto) 0 Keri/uL 06/05/23 09:19 Assessment & Plan Assessment & Plan (1) BPH (benign prostatic hyperplasia): Code(s): N40.0 - Benign prostatic hyperplasia without lower urinary tract symptoms (2) Retention of urine: Code(s): R33.9 - Retention of urine, unspecified Plan Six month follow-up PVR Orders: Orders AMB Cystoscopy Today R39.15 - Urgency of urination AMB Urinalysis Automated Today Z13.9 - Encounter for screening, unspecified Patient Instructions: Imaging studies, laboratory and physical exam results were discussed and reviewed in detail. No major barriers to patient understanding were identified. An opportunity to ask questions regarding the treatment plan was provided. All questions were answered. The patient expressed understanding and agreement with the above treatment plan. The patient is aware they should contact our office by phone for worsening of their current condition or the appearance of new urologic symptoms. Compliance is encouraged with any medications and followup testing that is ordered. It is a privilege to participate in the urologic care of your patient. If you have any questions or concerns regarding treatment for the above conditions, or other urologic issues, please do not hesitate to contact me. The office tel ephone contact is [phone]. This note is constructed using voice recognition software. While every effort has been made to ensure accuracy gas engine operator errors may have been included. Yours sincerely, Dr Nigel Arboleda MD, [facility] - Urology Providers of Expert, Compassionate Care for the Genitourinary System Coding Level of Care Code Est Pt Level 3 (76582) Diagnoses BPH (benign prostatic hyperplasia) N40.0 Retention of urine R33.9 CPT Codes Cystoscopy - CPT: 18739-[id number] ([id number])
== END 2023-06-05 09:50 | disposition home or self-care (01) ==
PROVIDERS: Visit Provider Urology
DX: N40.0 Benign prostatic hyperplasia without lower urinary tract symptoms (principal); R33.9 Retention of urine, unspecified
CPT/HCPCS: 52000; 99213

== ENCOUNTER → 2023-06-05 09:10 | Outpatient (BNVA) | payer MEDICAID, SELFPAY | PROVIDERS: Visit Provider Urology | DX: N40.0 Benign prostatic hyperplasia without lower urinary tract symptoms (principal); R33.9 Retention of urine, unspecified | CPT/HCPCS: 52000; 81003; 99212 ==

== ENCOUNTER 2023-06-10 09:13 | Emergency (ER) | payer MEDICAID, SELFPAY ==
--- NOTE | 2023-06-10 | ECG_ITS ---
Test Reason : chest pain Blood Pressure : / mmHG Vent. Rate : 074 BPM Atrial Rate : 074 BPM P-R Int : 156 ms QRS Dur : 134 ms QT Int : 396 ms P-R-T Axes : 072 -87 078 degrees QTc Int : 439 ms Normal sinus rhythm Possible Left atrial enlargement Right bundle branch block Left anterior fascicular block Bifascicular block Possible Inferior infarct (cited on or before 10-JUN-2023) Abnormal ECG When compared with ECG of 23-FEB-2023 00:03, T wave inversion now evident in Anterior leads Referred By: Generic ED Physician Electronically Signed By:STEPHANIE OLIVO
--- NOTE | ~2023-06-10 | CT_ITS ---
EXAMINATION: CT CERVICAL SPINE WITHOUT CONTRAST CLINICAL INFORMATION: Left-sided neck pain. COMPARISON: None available. TECHNIQUE: Drag Down images were obtained. CT imaging of the cervical spine was performed without contrast. Data was reformatted into multiplanar images at the acquisition workstation. This CT examination was performed using dose optimization techniques as appropriate, variously including the following: *Automated exposure control *Adjustment of mA and/or kV according to patient size (this includes techniques or standardized protocols for targeted exams where dose is matched to indication/reason for exam; i.e. extremities or head) *Use of iterative reconstruction technique DLP: 386 mGy-cm FINDINGS: Spinal alignment is normal. Vertebral body heights are preserved. No acute cervical spine fracture. No abnormal prevertebral soft tissue swelling. Incidentally there is fusion of both atlantooccipital joints. There is loss of intervertebral disc height with associated sclerotic degenerative endplate changes and disc osteophyte spurring at C5-C6. Canal patency is not well assessed on this examination due to inherent limitations of CT without intrathecal contrast. There is at least mild canal stenosis at multiple levels. Uncovertebral joint spurring in conjunction with facet degenerative change causes at least mild bilateral neuroforaminal encroachment at C5-C6, greater on the right. Visualized soft tissues of the neck are unremarkable. Lung apices are clear. Limited visualization of the posterior fossa reveals no abnormal finding. CT/CT cervical spine wo IV con IMPRESSION: There is multilevel degenerative spondylosis of the cervical spine that is most advanced at C5-C6. Canal patency is not well assessed on this examination due to inherent limitations of CT without intrathecal contrast. There is at least mild canal stenosis at multiple levels. Uncovertebral joint spurring and facet degenerative change causes at least mild bilateral neuroforaminal encroachment at C5-C6, greater on the right. Incidentally there is fusion of both atlantooccipital joints.
[2023-06-10 09:21] VITALS: BP 139/78; PULSE 92; RESP 22; TEMP 36.4; O2SAT 98; BMI 26.6
--- NOTE | 2023-06-10 09:44 | ED_ITS ---
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 He has told his doctor about this and given his priro hx they told him to get his heart checked out it's not my heart . He just came back from [place] and he had to take care of his father and use his arm a lot now he can barely move it and he is in so much pain. He wants a MRI to know what is wrong with his shoulder. He also has a runny nose and cough. When the pain is severe or he is driving he states it catches his breath. MD complaint: shoulder pain Onset (ago): month(s) (3+) Location: right and upper extremity Radiation: back, neck and other (chest) Severity: severe Quality: other (throbbing) Pain Consistency: constant Relieving factors: none Exacerbating factors: movement Associated symptoms: chest pain, cough, loss of appetite and shortness of breath Treatments prior to arrival: none Related Data Home Medications Medication Instructions Recorded Confirmed atorvastatin 80 mg tablet 80 mg PO DAILY 04/11/20 06/05/23 carvedilol 3.125 mg tablet 3.125 mg PO BID 04/11/20 06/05/23 clopidogrel 75 mg tablet 75 mg PO DAILY 04/11/20 06/05/23 ezetimibe 10 mg tablet (Zetia) 10 mg PO DAILY 04/11/20 06/05/23 gabapentin 800 mg tablet 800 mg PO BID 04/11/20 06/05/23 isosorbide mononitrate 60 mg 60 mg PO DAILY 04/11/20 06/05/23 tablet,extended release 24 hr lisinopril 2.5 mg tablet 2.5 mg PO DAILY 04/11/20 06/05/23 melatonin 5 mg capsule See Rx Instructions PO ONCE 04/11/20 06/05/23 ammonium lactate 12 % topical cream 1 appl topical BID 07/11/21 06/05/23 fluticasone propionate 50 1 - 2 spray intranasal DAILY PRN 01/17/22 06/05/23 mcg/actuation nasal congestion spray,suspension naproxen 500 mg tablet 500 mg PO moderate pain 06/13/22 06/05/23 tizanidine 4 mg tablet 4 mg PO TID 06/13/22 06/05/23 aspirin 81 mg chewable tablet 81 mg PO QAM 07/25/22 06/05/23 pregabalin 100 mg capsule 100 mg PO ONCE 07/25/22 06/05/23 Previous Rx's Medication Instructions Recorded magnesium citrate 300 ml PO DAILY PRN constipation 02/28/20 #296 mL blood sugar diagnostic (FreeStyle 1 strip miscellaneous QID PRN for 09/19/20 Lite Strips) diabetes mellitus #150 strips blood-glucose meter (FreeStyle 1 ea miscellaneous DIRECTED #1 09/26/20 Tutwiler Lite kit) kit lancets 33 gauge (TRUEplus Lancets) 1 gauge miscellaneous QID for 10/12/20 diabetes mellitus #100 ea flash glucose scanning reader #1 ea 01/01/21 (FreeStyle Alfredo 2 Kelly) flash glucose sensor (FreeStyle #2 ea 01/01/21 Alfredo 2 Sensor kit) dicyclomine 20 mg tablet 20 mg PO QID PRN abdominal pain 02/06/21 #20 tabs insulin glargine 100 unit/mL (3 30 unit (0.3 mL) subcut DAILY #15 08/06/21 mL) subcutaneous pen (Lantus mL Solostar U-100 Insulin) metformin 500 mg tablet 1,000 mg (2 x 500 mg) PO BID 30 12/12/21 days #120 tabs pen needle, diabetic 32 gauge x See Rx Instructions .Route 01/31/2232 (Pentips) .COMPLEX #200 ea diclofenac sodium 1 % topical gel 2 g topical QID 30 days #100 grams 02/27/22 insulin aspart U-100 100 unit/mL See Rx Instructions subcut QID #30 03/27/22 (3 mL) subcutaneous pen (Novolog mL FlexPen U-100 Insulin aspart) hydrocortisone 2.5 % topical cream 1 appl [place] BID PRN hemorrhoids #30 06/13/22 with perineal applicator grams (Proctozone-HC) ranolazine 500 mg tablet,extended 500 mg PO BID 90 days #180 tabs 06/17/22 release,12 hr (Ranexa) methylcellulose (laxative) 500 mg 500 mg PO TID #90 tabs 09/16/22 tablet (Citrucel) polyethylene glycol 3350 17 17 g PO DAILY 30 days #510 grams 09/16/22 gram/dose oral powder (Miralax) furosemide 20 mg tablet (Lasix) 20 mg PO DAILY 90 days #90 tabs 10/03/22 nitroglycerin 0.4 mg sublingual 0.4 mg sublingual Q5M PRN angina 10/03/22 tablet pectoris #30 tabs docusate sodium 100 mg capsule 200 mg (2 x 100 mg) PO BEDTIME #60 12/25/22 ea cyclobenzaprine 5 mg tablet 5 mg PO BEDTIME PRN muscle spasm 02/23/23 #4 tabs ketorolac 10 mg tablet 10 mg PO Q6H PRN pain 5 days #20 02/23/23 tabs potassium citrate 10 mEq (1,080 20 meq (2 x 10 mEq (1,080 mg)) PO 06/03/23 mg) tablet,extended release BID 90 days #360 tabs doxazosin 4 mg tablet 8 mg (2 x 4 mg) PO BEDTIME 90 days 06/05/23 #180 tabs finasteride 5 mg tablet 5 mg PO DAILY 90 days #90 tabs 06/05/23 cyclobenzaprine 10 mg tablet 10 mg PO TID PRN muscle spasm #20 06/10/23 tabs hydrocodone 5 mg-acetaminophen 325 1 tab PO Q6H PRN pain #10 tabs 06/10/23 mg tablet lidocaine 5 % topical patch 1 patch topical DAILY #30 ea 06/10/23 Allergies Allergy/AdvReac Type Severity Reaction Status Date / Time No Known Allergies Allergy Verified 06/10/23 09:26 [No Known Allergies*] Review of Systems 2 Review of Systems: Constitutional : No Fever, No Chills ENT/Mouth : No Ear Pain, No Hoarseness, No sore throat, pos rhinorrhea Eyes: No Eye Pain, No Swelling, No Redness, No Foreign Body Cardiovascular : pos Chest Pain, No SOB Respiratory : No Cough, No Dyspnea Gastrointestinal : No Nausea, No Vomiting, No Diarrhea, No abdominal Pain Genitourinary : No Dysuria, No Hematuria Musculoskeletal : positive joint pain, pos Myalgias, No Joint Swelling Skin : No Skin lacerations, No rash Neuro : No Weakness, No Numbness, No Loss of Consciousness, No Dizziness, No Headache Psych : pos Anxiety/Panic, No Depression All other systems reviewed and are negative [facility] Past Medical History Attestation statement: The following information was validated with the patient. Source: old records reviewed Medical History Ischemic cardiomyopathy Atherosclerotic cardiovascular disease History of pancreatitis Hepatitis B Hepatitis C Chronic HFrEF (heart failure with reduced ejection fraction) Cardiomyopathy Type 2 diabetes mellitus with hyperglycemia, with long-term current use of insulin Type 2 diabetes mellitus with diabetic polyneuropathy Hyperlipidemia LDL goal <70 Essential hypertension Myocardial infarction Surgical History Hx of colonoscopy History of appendectomy Hx of heart artery stent H/O coronary artery bypass surgery H/O cardiac catheterization Family History Family History Mother Diabetes Social History Social History Household Members: Spouse Alcohol intake: never Patient Tobacco Use Status: Never used Tobacco Smoked in Last 30 Days: No Use of substances other than those prescribed or required for medical reasons: No Advance Directives: No Advance Directives Information Provided: Yes Current occupational status: unemployed Physical Exam ED Vital Signs: Vital Signs - 24 hr 06/10/23 09:21 06/10/23 10:18 06/10/23 11:51 Temperature 97.6 F Pulse Rate 92 72 69 Respiratory Rate 22 H 19 14 Blood Pressure 139/78 116/70 111/63 Pulse Oximetry 98 98 95 Oxygen Delivery Method Room Air Room Air BMI result Body Mass Index 26.6 Appearance: Alert. Oriented X3. No acute distress. Eyes: Pupils equal, round and reactive to light. ENT: Pharynx normal. Neck: Normal inspection. Neck supple. CVS: Normal heart rate and rhythm. Pulses normal. Respiratory: No respiratory distress. Breath sounds normal. Abdomen: Soft and non-tender. Skin: Skin warm and dry. Normal skin color. Normal skin turgor. Extremities: No lower extremity edema. 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 Neuro: Oriented X 3. No motor deficit. No sensory deficit. Medications Administered Discontinued Medications Generic Name Dose Route Start Last Admin Trade Name Claudio PRN Reason Stop Dose Admin Lidocaine 1 patch 06/10/23 09:58 06/10/23 10:17 Lidocaine 4 % Patch Adh..Patch TRANSDERMA 06/10/23 09:59 1 patch ONCE ONE Administration Protocol Morphine Sulfate 15 mg 06/10/23 09:58 06/10/23 10:17 Morphine Sulfate Immed Release 15 Mg Tablet PO 06/10/23 09:59 15 mg ONCE ONE Administration Medical Decision Making Medical Decision Making [facility] Narrative: 58 yo male with PMH of BPH, RA, chronic pain, renal colic, chest pain, ischemic cardiomyopathy, DM, CAD, HLD, HTN here with c/o 3+ months of R sided shoulder pain - he is NV intact in RUE. He has pain with ROM testing. His symptoms are atypical for ACS but he has some new nonspecific EKG changes - his symptoms are not chest pain with exertion but pain with driving and using R arm as well as ROM testing R shoulder. Will obtain EKG, troponin x 2, basic labs, PO pain medications, CT cspine for radiculopathy. He needs to get MRI through PCP which he would like to get through ED today but he is neurologically intact with great pulses. Differential Diagnosis Differential Diagnoses: The differential diagnosis associated with the presentation includes rotator cuff syndrome, pinched nerve, cervical radiculopathy Admission/Observation Consideration of admission/observation: Escalation of care including admission/observation considered nonspecific ST T wave changes, trop flat 3 months of symptoms can be DC to follow up with PCP Lab Data [facility] Lab Attestation statement: I reviewed the patient's lab results. 06/10/23 10:02 06/10/23 10:02 Labs: Lab Results 06/10/23 06/10/23 06/10/23 Range/Units 10:02 10:02 12:15 WBC 9.2 (4.8-10.8) X10*3/uL RBC 4.63 (4.60-5.80) X10*6/uL Hgb 14.5 (14.0-18.0) g/dl Hct 42.2 (42.0-52.0) % MCV 91.1 (80.0-98.0) fL MCH 31.3 (27.0-33.0) pg MCHC 34.4 (31.0-36.0) g/dl RDW 12.3 (11.0-16.0) % Plt Count 180 (160-400) X10*3/uL MPV 10.8 (9.4-12.4) fL Immature Gran % (Auto) 0.4 (0.0-0.4) % Neut % (Auto) 79.3 H (45-73) % Lymph % (Auto) 12.1 L (20-40) % [place] % (Auto) 6.4 (2-11) % Eos % (Auto) 1.6 (0-4) % Baso % (Auto) 0.2 (0-2) % Lymph # (Auto) 1.1 L (1.2-4.9) X10*3/uL [place] # (Auto) 0.6 (0.1-1.2) X10*3/uL Eos # (Auto) 0.2 (0.0-0.4) X10*3/uL Baso # (Auto) 0.0 (0.0-0.2) X10*3/uL Abs Immat Gran (auto) 0.04 H (0.00-0.03) X10*3/uL Absolute Neuts (auto) 7.3 (2.0-8.3) x10*3/uL Absolute Nucleated RBC 0.000 (0.0-0.012) X10*3/uL Nucleated RBC % (auto) 0.0 (0.0-0.2) /100WBC Sodium 136 (135-145) mmol/L Potassium 4.5 (3.3-5.1) mmol/L Chloride 103 (96-108) mmol/L Carbon Dioxide 27 (22-29) mmol/L Anion Gap 11 L (12-20) BUN 23 H (9-16) mg/dL Creatinine 1.23 (0.5-1.4) mg/dL Estim Creat Clear Calc 59.0 Estimated GFR > 60 Random Glucose 324 H (60-115) mg/dL Calcium 9.4 (8.4-10.2) mg/dL Magnesium 1.9 (1.6-2.6) mg/dL Troponin I High Sens < 2.7 < 2.7 4.0 (<3.5-35.0) ng/L COVID-19 (YESSI) Negative (Negative) COVID-19 Clin Com See Note Influenza Type A (BOYD) Negative (Negative) Influenza Type B (BOYD) Negative (Negative) Influenza A & B Note See Note Independent Interpretation I performed an independent interpretation of an: EKG and CT Scan (some cervical disease) Interpretation: Rate: 74 Rhythm: NSR [place]: left Normal P waves. Normal PRISCILLA. RBBB ST T wave: inverted t wave aVL, V1-V2, biphasic t waves V3-V4 qTC: 439 prior studies: changed from prior The study has been interpreted contemporaneously by me. . Radiology Impression Discussion of test interpretation with radiology: I have reviewed the radiologist's reading. External Record Review External record reviewed: Inpatient record Prescription Management I considered prescription management with: Pain Medication and Other Discharge Plan Discharge Clinical Impression: Chronic pain in right shoulder, Nonspecific ST-T wave electrocardiographic changes Patient Disposition: Home, Self-Care Instructions: Shoulder Pain (ED) Additional Instructions: you need to follow up with your doctor for a MRI please call to schedule an appointment. you do have some disease in your neck but your pain is mostly in the shoulder. you do have some EKG changes but this is from one year ago. 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 necesita hacer un seguimiento con campuzano m?dico para myles resonancia magn?ruiz; llame para programar myles kike. Tiene alguna enfermedad en el natacha, mansoor el dolor se produce principalmente en el hombro. Tiene algunos cambios en el ECG, mansoor esto es de hace un a?o. Conrad un seguimiento con campuzano cardi?logo. Campuzano an?lisis de susan para detectar campuzano coraz?n es normal. Conrad un seguimiento si los s?ntomas empeoran. Prescriptions: New cyclobenzaprine 10 mg tablet 10 mg PO TID PRN (Reason: muscle spasm) Qty: 20 0RF hydrocodone-acetaminophen 5-325 mg tablet 1 tab PO Q6H PRN (Reason: pain) Qty: 10 0RF Rx Instructions: partial fill okay; Partial Fill upon patient request. lidocaine 5 % adhesive patch,medicated 1 patch topical DAILY Qty: 30 0RF Rx Instructions: leave on most painful area for up to 12 hrs No Action blood sugar diagnostic [FreeStyle Lite Strips] Strip 1 strip miscellaneous QID PRN (Reason: for diabetes mellitus) Qty: 150 11RF blood-glucose meter [FreeStyle Tutwiler Lite] Kit 1 ea miscellaneous DIRECTED Qty: 1 0RF lancets [TRUEplus Lancets] 33 gauge misc 1 gauge miscellaneous QID Qty: 100 11RF metformin 500 mg tablet 1,000 mg PO BID 30 Days Qty: 120 4RF pen needle, diabetic [Pentips] 32 gauge x 5/32 needle See Rx Instructions .ROUTE .COMPLEX Qty: 200 2RF Dose Instruction: USE SIX TIMES DAILY DIRECTED Rx Instructions: USE SIX TIMES DAILY DIRECTED insulin aspart U-100 [Novolog FlexPen U-100 Insulin] 100 unit/mL (3 mL) insulin pen See Rx Instructions subcut QID Qty: 30 0RF Rx Instructions: 6-8 units with meals, 2 units with snack subcut 4 times a day; ranolazine [Ranexa] 500 mg tablet extended release 12 hr 500 mg PO BID 90 Days Qty: 180 3RF furosemide [Lasix] 20 mg tablet 20 mg PO DAILY 90 Days Qty: 90 3RF nitroglycerin 0.4 mg tablet, sublingual 0.4 mg sublingual Q5M PRN (Reason: angina pectoris) Qty: 30 3RF Rx Instructions: do not exceed 3 doses per episode docusate sodium 100 mg capsule 200 mg PO BEDTIME Qty: 60 5RF potassium citrate 10 mEq (1,080 mg) tablet extended release 20 meq PO BID 90 Days Qty: 360 1RF magnesium citrate Solution 300 ml PO DAILY PRN (Reason: constipation) Qty: 296 0RF dicyclomine 20 mg tablet 20 mg PO QID PRN (Reason: abdominal pain) Qty: 20 0RF ketorolac 10 mg tablet 10 mg PO Q6H PRN (Reason: pain) 5 Days Qty: 20 0RF Rx Instructions: Patient received Toradol in the emergency room cyclobenzaprine 5 mg tablet 5 mg PO BEDTIME PRN (Reason: muscle spasm) Qty: 4 0RF clopidogrel 75 mg tablet 75 mg PO DAILY carvedilol 3.125 mg tablet 3.125 mg PO BID Rx Instructions: must administer with a meal/food lisinopril 2.5 mg tablet 2.5 mg PO DAILY isosorbide mononitrate 60 mg tablet extended release 24 hr 60 mg PO DAILY atorvastatin 80 mg tablet 80 mg PO DAILY melatonin 5 mg capsule See Rx Instructions PO ONCE Rx Instructions: 5 mg (2 tab) PO once; gabapentin 800 mg tablet 800 mg PO BID ezetimibe [Zetia] 10 mg tablet 10 mg PO DAILY (DME) FreeStyle Alfredo 2 Kelly Misc See Rx Instructions .ROUTE .MEDSUPPLY Qty: 1 0RF Rx Instructions: As directed (DME) FreeStyle Alfredo 2 Sensor Kit See Rx Instructions .ROUTE .MEDSUPPLY Qty: 2 11RF Rx Instructions: As directed every 2 weeks ammonium lactate 12 % cream 1 appl topical BID Lantus Solostar U-100 Insulin 100 unit/mL (3 mL) insulin pen 30 unit subcut DAILY Qty: 15 4RF fluticasone propionate 50 mcg/actuation spray,suspension 1 - 2 spray intranasal DAILY PRN (Reason: congestion) aspirin 81 mg tablet,chewable 81 mg PO QAM diclofenac sodium 1 % gel 2 g topical QID 30 Days Qty: 100 8RF Rx Instructions: apply to hand; for hand includes palm/fingers/back of hand pregabalin 100 mg capsule 100 mg PO ONCE naproxen 500 mg tablet 500 mg PO tizanidine 4 mg tablet 4 mg PO TID hydrocortisone [Proctozone-HC] 2.5 % cream with perineal applicator 1 appl [place] BID PRN (Reason: hemorrhoids) Qty: 30 3RF Rx Instructions: apply [place] BID prn Citrucel 500 mg tablet 500 mg PO TID Qty: 90 5RF polyethylene glycol 3350 [Miralax] 17 gram/dose powder 17 g PO DAILY 30 Days Qty: 510 6RF doxazosin 4 mg tablet 8 mg PO BEDTIME 90 Days Qty: 180 1RF finasteride 5 mg tablet 5 mg PO DAILY 90 Days Qty: 90 1RF Print Language: Filipino
[2023-06-10 10:06] LABS: MANUAL DIFF FLAG NO
[2023-06-10 10:07] LABS: Basophils Percent Auto 0.2 % (0-2); Eosinophils Absolute Auto 0.2 X10*3/uL (0.0-0.4); Eosinophils Percent Auto 1.6 % (0-4); Hematocrit 42.2 % (42.0-52.0); Hemoglobin 14.5 g/dl (14.0-18.0); Imm Gran Abs Auto 0.04 X10*3/uL (0.00-0.03); Imm Gran Pct Auto 0.4 % (0.0-0.4); Lymphocytes Absolute Auto 1.1 X10*3/uL (1.2-4.9); Lymphocytes Percent Auto 12.1 % (20-40); Mean Corpuscular HGB Conc 34.4 g/dl (31.0-36.0); Mean Corpuscular Hemoglobin 31.3 pg (27.0-33.0); Mean Corpuscular Volume 91.1 fL (80.0-98.0); Mean Platelet Volume 10.8 fL (9.4-12.4); Monocytes Absolute Auto 0.6 X10*3/uL (0.1-1.2); Monocytes Percent Auto 6.4 % (2-11); Neutrophils Absolute Auto 7.3 x10*3/uL (2.0-8.3); Neutrophils Percent Auto 79.3 % (45-73); Platelet Count 180 X10*3/uL (160-400); Red Blood Count 4.63 X10*6/uL (4.60-5.80); Red Cell Distribution Width 12.3 % (11.0-16.0); White Blood Count 9.2 X10*3/uL (4.8-10.8)
[2023-06-10] MEDS: Morphine Sulfate Immed Release 15 MG TABLET PO (10:17)
[2023-06-10] MEDS: Lidocaine 4 % Patch ADH..PATCH 1 PATCH TRANSDERMA (10:17)
[2023-06-10 10:18] VITALS: BP 116/70; PULSE 72; RESP 19; O2SAT 98
[2023-06-10 10:25] LABS: Anion Gap 11 (12-20); Blood Urea Nitrogen 23 mg/dL (9-16); Calcium 9.4 mg/dL (8.4-10.2); Carbon Dioxide 27 mmol/L (22-29); Chloride 103 mmol/L (96-108); Estimated Glomerular Filt Rate > 60; Glucose Random 324 mg/dL (60-115); Magnesium 1.9 mg/dL (1.6-2.6); Potassium 4.5 mmol/L (3.3-5.1); Sodium 136 mmol/L (135-145)
[2023-06-10 10:26] LABS: COVID-19 Test Negative (Negative); IDNOW Serial# 08D9AD1C; IDNOW Serial# 152EDE1D; Influenza A Negative (Negative); Influenza B2 Negative (Negative)
[2023-06-10 10:35] LABS: Troponin-I High Sensitivity < 2.7 ng/L (<3.5-35.0)
[2023-06-10 11:51] VITALS: BP 111/63; PULSE 69; RESP 14; O2SAT 95
[2023-06-10 13:36] VITALS: BP 133/74; PULSE 78; RESP 18; O2SAT 97
== END 2023-06-10 13:37 | disposition home or self-care (01) ==
PROVIDERS: Emergency Provider Emergency Medicine
DX: M25.511 Pain in right shoulder (principal); R07.89 Other chest pain; M54.2 Cervicalgia; Z11.52 Encounter for screening for COVID-19; Z79.899 Other long term (current) drug therapy
CPT/HCPCS: 36415; 72125; 80048; 83735; 84484; 85025; 87502; 87635; 93005; 99284

== ENCOUNTER → 2023-06-10 09:53 | Outpatient (BNV) | payer MEDICAID, SELFPAY | PROVIDERS: Emergency Provider Emergency Medicine; Visit Provider Internal Medicine | DX: I45.2 Bifascicular block (principal); R94.31 Abnormal electrocardiogram [ECG] [EKG] | CPT/HCPCS: 93010 ==

== ENCOUNTER 2023-07-14 18:53 | Emergency (ER) | payer MEDICAID, SELFPAY ==
--- NOTE | ~2023-07-14 | CT_ITS ---
EXAMINATION: CT CHEST, ABDOMEN AND PELVIS WITH CONTRAST CLINICAL INFORMATION: fall onto chest and back pain to both + thinners COMPARISON: CT chest July 14, 2023 TECHNIQUE: Multidetector volumetric CT imaging of the chest, abdomen and pelvis was obtained after the administration of 85 mL of intravenous Omnipaque 300 without immediate adverse reactions. Coronal and sagittal reformatted images are performed at CT [This CT examination was performed using dose optimization techniques as appropriate, variously including the following: *Automated exposure control *Adjustment of mA and/or kV according to patient size (this includes techniques or standardized protocols for targeted exams where dose is matched to indication/reason for exam; i.e. extremities or head) *Use of iterative reconstruction technique] DLP: 1011 mGy-cm. FINDINGS: There is motion which limits study. CT CHEST: Lungs: Mild bibasilar dependent atelectasis. No focal consolidation. Central airways are open Mediastinum: Status post median sternotomy with surgical clips in the mediastinum. Heart size is prominent. No pericardial effusion. Borderline lymph node in the pretracheal retrovascular space at the level the giorgio. No bulky lymphadenopathy. Pleura: There is no pleural effusion. No pleural mass or thickening. Axilla: No lymphadenopathy. CT ABDOMEN AND PELVIS: Liver, Gallbladder and Biliary Tree: The liver is normal in size, shape, and attenuation. No focal hepatic lesion or biliary ductal dilatation is present. The gallbladder is unremarkable with no evidence of radiopaque gallstones, gallbladder wall thickening, or obvious pericholecystic inflammatory changes. Pancreas: No acute change of the pancreas. No mass. No pancreatic duct dilatation. Spleen: Spleen normal in size and contour. No focal lesion. Adrenal Glands: Adrenal glands are normal in size. No focal mass. Kidneys and Ureters: The kidneys are normal in size, shape, and attenuation. No hydronephrosis, hydroureter, or calculi seen. No perinephric stranding. Bladder: Unremarkable. Gastrointestinal Tract: The small and large bowel are unremarkable. The appendix is unremarkable. Mesentery: No focal inflammation. No free fluid. No free air. Abdominal Wall: No significant hernia is appreciated. Lymph Nodes: Normal. Vascular: Scattered vascular wall calcifications of the distal aorta and iliac arteries. Pelvic Viscera: Unremarkable. Osseous Structures: There is mild degenerative spondylosis spine. No acute osteoporotic. Small corticated osseous density adjacent to the tip of the right L3 transverse process is old. CT/CT abdomen pelvis w IV con IMPRESSION: No acute abnormality CT scan chest, abdomen or pelvis.
--- NOTE | ~2023-07-14 | CT_ITS ---
EXAMINATION: CT HEAD WITHOUT CONTRAST CT CERVICAL SPINE WITHOUT CONTRAST CLINICAL INFORMATION: Fall with head trauma. COMPARISON: None available. TECHNIQUE: Contiguous axial imaging was performed from the skullbase to vertex without intravenous administration of contrast. Multidetector helical imaging was performed through the cervical spine. This CT examination was performed using dose optimization techniques as appropriate, variously including the following: *Automated exposure control. *Adjustment of mA and/or kV according to patient size (this includes techniques or standardized protocols for targeted exams where dose is matched to indication/reason for exam; i.e. extremities or head). *Use of iterative reconstruction technique. DLP: 394 mGy-cm and 666 mGy-cm. FINDINGS: HEAD: There is parietal-occipital scalp soft tissue swelling. A more focal subgaleal hematoma overlies the left parietal bone, measuring 2.7 x 0.6 cm in size. A 1.7 x 1.8 x 0.7 cm scalp hematoma is noted at the vertex posteriorly. No calvarial fracture is seen. There is what appears to represent a chronic depressed fracture deformity in the medial wall of the left orbit. There are presumed chronic bilateral nasal bone fractures without overlying paranasal soft tissue swelling. There is no evidence of acute intracranial hemorrhage or territorial infarction. No abnormal mass effect or midline shift is seen. No extra-axial fluid collections are identified. The ventricles are normal in size. Brain parenchymal attenuation is normal. The mastoid air cells are well aerated. There is [id number] mucosal thickening in the maxillary sinus cavities, more so on the right side. CERVICAL SPINE: No acute fracture is seen. Multilevel hypertrophic facet arthropathy results in varying degrees of foraminal encroachment. Small central disc protrusions visible at the C3-C4 and C4-C5 levels. There are disc-osteophyte complexes at the C5-C6 and C6-C7 levels. There is severe disc space with endplate sclerosis and osteophytic spurring at the C5-C6 level with additional [id number] left-sided facet arthrosis. Atlanto-occipital assimilation noted. The atlantoaxial articulation is normally maintained. The paraspinal soft tissues are normal. The lung apices are clear. CT/CT cervical spine wo IV con IMPRESSION: 1. No acute intracranial hemorrhage or territorial infarction. Parietal-occipital scalp soft tissue swelling and subgaleal edema with two discrete scalp hematomas. No calvarial fracture. 2. No evidence of acute cervical spine traumatic injury. Severe spondylosis at the C5-C6 level. Multilevel facet arthropathy. 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
--- NOTE | ~2023-07-14 | CT_ITS ---
EXAMINATION: CT HEAD WITHOUT CONTRAST CT CERVICAL SPINE WITHOUT CONTRAST CLINICAL INFORMATION: Fall with head trauma. COMPARISON: None available. TECHNIQUE: Contiguous axial imaging was performed from the skullbase to vertex without intravenous administration of contrast. Multidetector helical imaging was performed through the cervical spine. This CT examination was performed using dose optimization techniques as appropriate, variously including the following: *Automated exposure control. *Adjustment of mA and/or kV according to patient size (this includes techniques or standardized protocols for targeted exams where dose is matched to indication/reason for exam; i.e. extremities or head). *Use of iterative reconstruction technique. DLP: 394 mGy-cm and 666 mGy-cm. FINDINGS: HEAD: There is parietal-occipital scalp soft tissue swelling. A more focal subgaleal hematoma overlies the left parietal bone, measuring 2.7 x 0.6 cm in size. A 1.7 x 1.8 x 0.7 cm scalp hematoma is noted at the vertex posteriorly. No calvarial fracture is seen. There is what appears to represent a chronic depressed fracture deformity in the medial wall of the left orbit. There are presumed chronic bilateral nasal bone fractures without overlying paranasal soft tissue swelling. There is no evidence of acute intracranial hemorrhage or territorial infarction. No abnormal mass effect or midline shift is seen. No extra-axial fluid collections are identified. The ventricles are normal in size. Brain parenchymal attenuation is normal. The mastoid air cells are well aerated. There is [id number] mucosal thickening in the maxillary sinus cavities, more so on the right side. CERVICAL SPINE: No acute fracture is seen. Multilevel hypertrophic facet arthropathy results in varying degrees of foraminal encroachment. Small central disc protrusions visible at the C3-C4 and C4-C5 levels. There are disc-osteophyte complexes at the C5-C6 and C6-C7 levels. There is severe disc space with endplate sclerosis and osteophytic spurring at the C5-C6 level with additional [id number] left-sided facet arthrosis. Atlanto-occipital assimilation noted. The atlantoaxial articulation is normally maintained. The paraspinal soft tissues are normal. The lung apices are clear. CT/CT head/brain wo IV con IMPRESSION: 1. No acute intracranial hemorrhage or territorial infarction. Parietal-occipital scalp soft tissue swelling and subgaleal edema with two discrete scalp hematomas. No calvarial fracture. 2. No evidence of acute cervical spine traumatic injury. Severe spondylosis at the C5-C6 level. Multilevel facet arthropathy. 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
--- NOTE | ~2023-07-14 | XR_ITS ---
EXAMINATION: XR KNEE, LEFT CLINICAL INFORMATION: Left knee pain following fall. COMPARISON: Left knee radiographs dated 06/21/2019. TECHNIQUE: AP and lateral views of the left knee. FINDINGS: No acute fracture or dislocation. Mild medial compartment joint space narrowing with tiny tricompartmental marginal osteophytes. No concerning lytic or blastic osseous lesion. Superior and inferior patellar enthesophytes as well as degenerative spurring at the tibial tuberosity, increased when compared to the prior examination. Medial soft tissue morro. No significant joint effusion. XR/XR knee LT 2V IMPRESSION: 1. Mild tricompartmental osteoarthritis, minimally progressed when compared to the prior examination. 2. No acute fracture or dislocation.
--- NOTE | 2023-07-14 18:57 | ECG_ITS ---
Test Reason : FALL Blood Pressure : / mmHG Vent. Rate : 072 BPM Atrial Rate : 072 BPM P-R Int : 160 ms QRS Dur : 144 ms QT Int : 442 ms P-R-T Axes : 060 270 044 degrees QTc Int : 483 ms Normal sinus rhythm Right bundle branch block Inferior infarct (cited on or before 10-JUN-2023) Abnormal ECG When compared with ECG of 10-JUN-2023 09:53, T wave inversion no longer evident in Anterior leads Referred By: Colt Arredondo Electronically Signed By:EAGLE HURST MD
--- NOTE | 2023-07-14 19:00 | ED_ITS ---
HPI - General Adult General Chief complaint: Fall Stated complaint: FALL LAST NIGHT NECK PAIN NAUSEA Time Seen by Provider: 07/14/23 18:53 Source: patient and EMS Mode of arrival: EMS Limitations: no limitations History of Present Illness HPI narrative: 58-year-old male history of BPH, hepatitis-B, hepatitis-C, hyperlipidemia, diabetes, ischemic cardiomyopathy, arthrosclerotic cardiovascular disease, presenting to the emergency department with complaints of headache, neck pain, lightheadedness, laceration to head status post fall that occurred yesterday night around 21:00 [place] the [place] station after his left knee gave out ( has had issues w/ knee for a while now) . Hit his head doesn't think he lost conciousness all happened so fast he says. Patient reports after the fall he had an episode of nausea and vomiting however no nausea and vomiting since yesterday. Patient reports diffuse headache without visual disturbances, weakness. Patient is on Plavix and aspirin. Unclear of tetanus status. Denies injury to chest, abdomen or pelvis. Denies changes in urination. Has been ambulatory since. Patient collared out of precaution. GCS 15 NIH stroke scale 0 Related Data Home Medications Medication Instructions Recorded Confirmed atorvastatin 80 mg tablet 80 mg PO DAILY 04/11/20 06/05/23 carvedilol 3.125 mg tablet 3.125 mg PO BID 04/11/20 06/05/23 clopidogrel 75 mg tablet 75 mg PO DAILY 04/11/20 06/05/23 ezetimibe 10 mg tablet (Zetia) 10 mg PO DAILY 04/11/20 06/05/23 gabapentin 800 mg tablet 800 mg PO BID 04/11/20 06/05/23 isosorbide mononitrate 60 mg 60 mg PO DAILY 04/11/20 06/05/23 tablet,extended release 24 hr lisinopril 2.5 mg tablet 2.5 mg PO DAILY 04/11/20 06/05/23 melatonin 5 mg capsule See Rx Instructions PO ONCE 04/11/20 06/05/23 ammonium lactate 12 % topical cream 1 appl topical BID 07/11/21 06/05/23 fluticasone propionate 50 1 - 2 spray intranasal DAILY PRN 01/17/22 06/05/23 mcg/actuation nasal congestion spray,suspension naproxen 500 mg tablet 500 mg PO moderate pain 06/13/22 06/05/23 tizanidine 4 mg tablet 4 mg PO TID 06/13/22 06/05/23 aspirin 81 mg chewable tablet 81 mg PO QAM 07/25/22 06/05/23 pregabalin 100 mg capsule 100 mg PO ONCE 07/25/22 06/05/23 Previous Rx's Medication Instructions Recorded magnesium citrate 300 ml PO DAILY PRN constipation 02/28/20 #296 mL blood sugar diagnostic (FreeStyle 1 strip miscellaneous QID PRN for 09/19/20 Lite Strips) diabetes mellitus #150 strips blood-glucose meter (FreeStyle 1 ea miscellaneous DIRECTED #1 09/26/20 [place] Lite kit) kit lancets 33 gauge (TRUEplus Lancets) 1 gauge miscellaneous QID for 10/12/20 diabetes mellitus #100 ea flash glucose scanning reader #1 ea 01/01/21 (FreeStyle Alfred[place] 2 [place]) flash glucose sensor (FreeStyle #2 ea 01/01/21 Alfredo 2 Sensor kit) dicyclomine 20 mg tablet 20 mg PO QID PRN abdominal pain 02/06/21 #20 tabs insulin glargine 100 unit/mL (3 30 unit (0.3 mL) subcut DAILY #15 08/06/21 mL) subcutaneous pen (Lantus mL Solostar U-100 Insulin) metformin 500 mg tablet 1,000 mg (2 x 500 mg) PO BID 30 12/12/21 days #120 tabs pen needle, diabetic 32 gauge x See Rx Instructions .Route 01/31/22 5/32 (Pentips) .COMPLEX #200 ea diclofenac sodium 1 % topical gel 2 g topical QID 30 days #100 grams 02/27/22 insulin aspart U-100 100 unit/mL See Rx Instructions subcut QID #30 03/27/22 (3 mL) subcutaneous pen (Novolog mL FlexPen U-100 Insulin aspart) hydrocortisone 2.5 % topical cream 1 appl [place] BID PRN hemorrhoids #30 06/13/22 with perineal applicator grams (Proctozone-HC) ranolazine 500 mg tablet,extended 500 mg PO BID 90 days #180 tabs 06/17/22 release,12 hr (Ranexa) methylcellulose (laxative) 500 mg 500 mg PO TID #90 tabs 09/16/22 tablet (Citrucel) polyethylene glycol 3350 17 17 g PO DAILY 30 days #510 grams 09/16/22 gram/dose oral powder (Miralax) furosemide 20 mg tablet (Lasix) 20 mg PO DAILY 90 days #90 tabs 10/03/22 nitroglycerin 0.4 mg sublingual 0.4 mg sublingual Q5M PRN angina 10/03/22 tablet pectoris #30 tabs cyclobenzaprine 5 mg tablet 5 mg PO BEDTIME PRN muscle spasm 02/23/23 #4 tabs ketorolac 10 mg tablet 10 mg PO Q6H PRN pain 5 days #20 02/23/23 tabs potassium citrate 10 mEq (1,080 20 meq (2 x 10 mEq (1,080 mg)) PO 06/03/23 mg) tablet,extended release BID 90 days #360 tabs doxazosin 4 mg tablet 8 mg (2 x 4 mg) PO BEDTIME 90 days 06/05/23 #180 tabs finasteride 5 mg tablet 5 mg PO DAILY 90 days #90 tabs 06/05/23 cyclobenzaprine 10 mg tablet 10 mg PO TID PRN muscle spasm #20 06/10/23 tabs hydrocodone 5 mg-acetaminophen 325 1 tab PO Q6H PRN pain #10 tabs 06/10/23 mg tablet lidocaine 5 % topical patch 1 patch topical DAILY #30 ea 06/10/23 docusate sodium 100 mg capsule 200 mg (2 x 100 mg) PO BEDTIME #60 07/02/23 caps acetaminophen 325 mg capsule 325 mg PO Q4H PRN pain #30 caps 07/14/23 (Tylenol) lidocaine 5 % topical patch 1 patch topical DAILY PRN pain #15 07/14/23 ea Allergies Allergy/AdvReac Type Severity Reaction Status Date / Time No Known Allergies Allergy Verified 07/14/23 19:23 [No Known Allergies*] Review of Systems 2 Review of Systems: Yes all other systems are reviewed and are negative PMFSH Past Medical History Attestation statement: The following information was validated with the patient. Source: old records reviewed and nursing notes reviewed Medical History Ischemic cardiomyopathy Atherosclerotic cardiovascular disease History of pancreatitis Hepatitis B Hepatitis C Chronic HFrEF (heart failure with reduced ejection fraction) Cardiomyopathy Type 2 diabetes mellitus with hyperglycemia, with long-term current use of insulin Type 2 diabetes mellitus with diabetic polyneuropathy Hyperlipidemia LDL goal <70 Essential hypertension Myocardial infarction Surgical History Hx of colonoscopy History of appendectomy Hx of heart artery stent H/O coronary artery bypass surgery H/O cardiac catheterization Family History Family History Mother Diabetes Social History Social History Household Members: Spouse Alcohol intake: never Patient Tobacco Use Status: Never used Tobacco Advance Directives: No Advance Directives Information Provided: No Current occupational status: unemployed Physical Exam ED Vital Signs: Vital Signs - 24 hr 07/14/23 19:02 07/14/23 19:19 Temperature 97.6 F 97.8 F Pulse Rate 72 71 Respiratory Rate 17 18 Blood Pressure 144/79 H 125/71 Pulse Oximetry 96 97 Oxygen Delivery Method Room Air Room Air BMI result Body Mass Index 25.7 vss Appearance: Alert.? Oriented X3.? No acute distress.? Head: Normocephalic, + small hematoma to the occipital region of head with a 1 cm laceration that appears to have healed with scabbing overlying. No active bleeding., no step-offs or deformities Eyes: Pupils equal, round and reactive to light.? Extraocular movements intact and pain-free. Neck: Normal inspection.? Neck supple.? CVS: Normal heart rate and rhythm.? Pulses normal.? Respiratory: No respiratory distress.? Breath sounds normal.? Abdomen: Soft and nontender.? Skin: Skin warm and dry.? Normal skin color.? Normal skin turgor.? Extremities: No lower extremity edema.? No calf ttp. 5/5 strength to bilateral upper and lower extremities Neuro: Oriented X 3.? No motor deficit.? No sensory deficit. CN 2-12 intact . Ambulating with steady gait normal coordination. Negative Romberg and pronator drift. Normal [id number], hszp-ll-diqa. Course Reevaluation(s) Reevaluation #1: CBC unremarkable. Chemistry no acute findings requiring intervention. Chronically elevated BUN and creatinine it appears to be around patient's baseline. Negative troponin, nonischemic EKG unlikely ACS or PE. Coags unremarkable. Ethanol negative. CT abdomen pelvis no acute abnormality of this chest, abdomen or pelvis. CT head and cervical spine no acute intracranial hemorrhage or territorial infarction. Parietal occipital scalp soft tissue swelling with subcu edema with 2 discrete scalp hematomas. No clavicular fracture. No evidence of acute cervical spine traumatic injury. Severe spondylosis of the C5-C6 level. Multilevel facet arthropathy. X-ray of knee pending. Time: 21:14 Reevaluation #2: X-ray of left knee osteoarthritis. Educated patient on diagnosis and treatment plan, answered all question, patient verbalizes understanding. At this time patient will be discharged home, advised to return with new or worsening symptoms. Educated on worrisome signs and symptoms and when to return. At this time I feel comfortable discharge home. Time: 21:58 Medications Administered Discontinued Medications Generic Name Dose Route Start Last Admin Trade Name Freq PRN Reason Stop Dose Admin Iohexol 100 ml 07/14/23 20:09 07/14/23 20:10 Iohexol 350 Mg/Ml 100 Ml Infus..Btl IV 07/14/23 20:10 85 ml ONCE ONE Administration Medical Decision Making Medical Decision Making [facility] Narrative: 58-year-old male presents status post fall with headache, lightheadedness, neck pain, laceration to head, reports he fell last night after his left leg gave out. Physical exam significant for + small hematoma to the occipital region of head with a 1 cm laceration that appears to have healed with scabbing overlying. No active bleeding., no step-offs or deformities History and physical exam concerning for mechanical fall with possible concussion. Unlikely intracranial hemorrhage, stroke, posterior stroke. No signs of traumatic injury to neck, chest, abdomen or pelvis. Will rule out metabolic derangements, UTI although unlikely. Unlikely ACS, PE or dissection. Plan at this time- labs, imaging Differential Diagnosis Differential Diagnoses: The differential diagnosis associated with the presentation includes History and physical exam concerning for mechanical fall with possible concussion. Unlikely intracranial hemorrhage, stroke, posterior stroke. No signs of traumatic injury to neck, chest, abdomen or pelvis. Will rule out metabolic derangements, UTI although unlikely. Unlikely ACS, PE or dissection. Admission/Observation Consideration of admission/observation: Escalation of care including admission/observation considered Lab Data [facility] Lab Attestation statement: I reviewed the patient's lab results. 07/14/23 19:17 07/14/23 19:17 Labs: Lab Results 07/14/23 Range/Units 19:17 WBC 5.7 (4.8-10.8) X10*3/uL RBC 4.58 L (4.60-5.80) X10*6/uL Hgb 14.4 (14.0-18.0) g/dl Hct 41.6 L (42.0-52.0) % MCV 90.8 (80.0-98.0) fL MCH 31.4 (27.0-33.0) pg MCHC 34.6 (31.0-36.0) g/dl RDW 12.4 (11.0-16.0) % Plt Count 154 L (160-400) X10*3/uL MPV 10.6 (9.4-12.4) fL Immature Gran % (Auto) 0.2 (0.0-0.4) % Neut % (Auto) 59.8 (45-73) % Lymph % (Auto) 25.6 (20-40) % Howard % (Auto) 9.2 (2-11) % Eos % (Auto) 4.8 H (0-4) % Baso % (Auto) 0.4 (0-2) % Lymph # (Auto) 1.5 (1.2-4.9) X10*3/uL Howard # (Auto) 0.5 (0.1-1.2) X10*3/uL Eos # (Auto) 0.3 (0.0-0.4) X10*3/uL Baso # (Auto) 0.0 (0.0-0.2) X10*3/uL Abs Immat Gran (auto) 0.01 (0.00-0.03) X10*3/uL Absolute Neuts (auto) 3.4 (2.0-8.3) x10*3/uL Absolute Nucleated RBC 0.000 (0.0-0.012) X10*3/uL Nucleated RBC % (auto) 0.0 (0.0-0.2) /100WBC PT 11.0 L (11.1-13.3) SEC INR 0.9 (0.9-1.1) Sodium 141 (135-145) mmol/L Potassium 4.1 (3.3-5.1) mmol/L Chloride 112 H (96-108) mmol/L Carbon Dioxide 22 (22-29) mmol/L Anion Gap 11 L (12-20) BUN 22 H (9-16) mg/dL Creatinine 1.00 (0.5-1.4) mg/dL Estim Creat Clear Calc 77.9 Estimated GFR > 60 Random Glucose 254 H (60-115) mg/dL Calcium 8.5 D (8.4-10.2) mg/dL Total Bilirubin 1.1 H (0.0-1.0) mg/dL AST 19 (5-37) U/L ALT 24 (0-40) U/L Alkaline Phosphatase 125 H (39-117) U/L Troponin I High Sens < 2.7 (<3.5-35.0) ng/L Total Protein 6.5 (6.5-8.0) g/dL Albumin 3.9 (3.5-5.0) g/dL Ethyl Alcohol < 10 mg/dL Independent Interpretation I performed an independent interpretation of an: EKG, Plain X-Ray and CT Scan Radiology Impression Discussion of test interpretation with radiology: I have reviewed the radiologist's reading. Discharge Plan Discharge Clinical Impression: Fall, Headache, Neck pain, Concussion, Laceration of head, Knee pain, Hematoma Patient Disposition: Home, Self-Care Instructions: Laceration (ED), Concussion (ED), Acute Headache (ED), Fall Prevention (ED), Neck Pain (ED) Additional Instructions: Take your medications as prescribed. If you were prescribed antibiotics today, it is important that you take your medication to their entirety, do not skip any doses, do not finish them early. Follow-up with your primary care provider this week. Return to the emergency department with new or worsening symptoms. Such as fevers, chills, chest pain, shortness of breath, nausea, vomiting, dizziness, headache, vision changes, lethargy In case of emergency call 911 XR/XR knee LT 2V IMPRESSION: 1. Mild tricompartmental osteoarthritis, minimally progressed when compared to the prior examination. 2. No acute fracture or dislocation. CT/CT head/brain wo IV con IMPRESSION: 1. No acute intracranial hemorrhage or territorial infarction. Parietal-occipital scalp soft tissue swelling and subgaleal edema with two discrete scalp hematomas. No calvarial fracture. 2. No evidence of acute cervical spine traumatic injury. Severe spondylosis at the C5-C6 level. Multilevel facet arthropathy. 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 Prescriptions: New lidocaine 5 % adhesive patch,medicated 1 patch topical DAILY PRN (Reason: pain) Qty: 15 0RF Rx Instructions: leave on most painful area for up to 12 hrs acetaminophen [Tylenol] 325 mg capsule 325 mg PO Q4H PRN (Reason: pain) Qty: 30 0RF No Action blood sugar diagnostic [FreeStyle Lite Strips] Strip 1 strip miscellaneous QID PRN (Reason: for diabetes mellitus) Qty: 150 11RF blood-glucose meter [FreeStyle [place] Lite] Kit 1 ea miscellaneous DIRECTED Qty: 1 0RF lancets [TRUEplus Lancets] 33 gauge misc 1 gauge miscellaneous QID Qty: 100 11RF metformin 500 mg tablet 1,000 mg PO BID 30 Days Qty: 120 4RF pen needle, diabetic [Pentips] 32 gauge x 5/32 needle See Rx Instructions .ROUTE .COMPLEX Qty: 200 2RF Dose Instruction: USE SIX TIMES DAILY DIRECTED Rx Instructions: USE SIX TIMES DAILY DIRECTED insulin aspart U-100 [Novolog FlexPen U-100 Insulin] 100 unit/mL (3 mL) insulin pen See Rx Instructions subcut QID Qty: 30 0RF Rx Instructions: 6-8 units with meals, 2 units with snack subcut 4 times a day; ranolazine [Ranexa] 500 mg tablet extended release 12 hr 500 mg PO BID 90 Days Qty: 180 3RF furosemide [Lasix] 20 mg tablet 20 mg PO DAILY 90 Days Qty: 90 3RF nitroglycerin 0.4 mg tablet, sublingual 0.4 mg sublingual Q5M PRN (Reason: angina pectoris) Qty: 30 3RF Rx Instructions: do not exceed 3 doses per episode potassium citrate 10 mEq (1,080 mg) tablet extended release 20 meq PO BID 90 Days Qty: 360 1RF docusate sodium 100 mg capsule 200 mg PO BEDTIME Qty: 60 5RF magnesium citrate Solution 300 ml PO DAILY PRN (Reason: constipation) Qty: 296 0RF dicyclomine 20 mg tablet 20 mg PO QID PRN (Reason: abdominal pain) Qty: 20 0RF ketorolac 10 mg tablet 10 mg PO Q6H PRN (Reason: pain) 5 Days Qty: 20 0RF Rx Instructions: Patient received Toradol in the emergency room cyclobenzaprine 5 mg tablet 5 mg PO BEDTIME PRN (Reason: muscle spasm) Qty: 4 0RF cyclobenzaprine 10 mg tablet 10 mg PO TID PRN (Reason: muscle spasm) Qty: 20 0RF hydrocodone-acetaminophen 5-325 mg tablet 1 tab PO Q6H PRN (Reason: pain) Qty: 10 0RF Rx Instructions: partial fill okay; Partial Fill upon patient request. lidocaine 5 % adhesive patch,medicated 1 patch topical DAILY Qty: 30 0RF Rx Instructions: leave on most painful area for up to 12 hrs clopidogrel 75 mg tablet 75 mg PO DAILY carvedilol 3.125 mg tablet 3.125 mg PO BID Rx Instructions: must administer with a meal/food lisinopril 2.5 mg tablet 2.5 mg PO DAILY isosorbide mononitrate 60 mg tablet extended release 24 hr 60 mg PO DAILY atorvastatin 80 mg tablet 80 mg PO DAILY melatonin 5 mg capsule See Rx Instructions PO ONCE Rx Instructions: 5 mg (2 tab) PO once; gabapentin 800 mg tablet 800 mg PO BID ezetimibe [Zetia] 10 mg tablet 10 mg PO DAILY (DME) FreeStyle Alfredo 2 [place] Misc See Rx Instructions .ROUTE .MEDSUPPLY Qty: 1 0RF Rx Instructions: As directed (DME) FreeStyle Alfredo 2 Sensor Kit See Rx Instructions .ROUTE .MEDSUPPLY Qty: 2 11RF Rx Instructions: As directed every 2 weeks ammonium lactate 12 % cream 1 appl topical BID Lantus Solostar U-100 Insulin 100 unit/mL (3 mL) insulin pen 30 unit subcut DAILY Qty: 15 4RF fluticasone propionate 50 mcg/actuation spray,suspension 1 - 2 spray intranasal DAILY PRN (Reason: congestion) aspirin 81 mg tablet,chewable 81 mg PO QAM diclofenac sodium 1 % gel 2 g topical QID 30 Days Qty: 100 8RF Rx Instructions: apply to hand; for hand includes palm/fingers/back of hand pregabalin 100 mg capsule 100 mg PO ONCE naproxen 500 mg tablet 500 mg PO tizanidine 4 mg tablet 4 mg PO TID hydrocortisone [Proctozone-HC] 2.5 % cream with perineal applicator 1 appl [place] BID PRN (Reason: hemorrhoids) Qty: 30 3RF Rx Instructions: apply [place] BID prn Citrucel 500 mg tablet 500 mg PO TID Qty: 90 5RF polyethylene glycol 3350 [Miralax] 17 gram/dose powder 17 g PO DAILY 30 Days Qty: 510 6RF doxazosin 4 mg tablet 8 mg PO BEDTIME 90 Days Qty: 180 1RF finasteride 5 mg tablet 5 mg PO DAILY 90 Days Qty: 90 1RF Referrals: Physician,Unknown J [Primary Care Provider] - 2 days Stand Alone Forms: Work/School Release
[2023-07-14 19:02] VITALS: BP 144/79; PULSE 72; RESP 17; TEMP 36.4; O2SAT 96
[2023-07-14 19:03] VITALS: BP 139/72; PULSE 80; O2SAT 98
[2023-07-14 19:19] VITALS: BP 125/71; PULSE 71; RESP 18; TEMP 36.6; O2SAT 97; BMI 25.7
[2023-07-14 19:23] LABS: MANUAL DIFF FLAG NO
[2023-07-14 19:25] LABS: Basophils Percent Auto 0.4 % (0-2); Eosinophils Absolute Auto 0.3 X10*3/uL (0.0-0.4); Eosinophils Percent Auto 4.8 % (0-4); Hematocrit 41.6 % (42.0-52.0); Hemoglobin 14.4 g/dl (14.0-18.0); Imm Gran Abs Auto 0.01 X10*3/uL (0.00-0.03); Imm Gran Pct Auto 0.2 % (0.0-0.4); Lymphocytes Absolute Auto 1.5 X10*3/uL (1.2-4.9); Lymphocytes Percent Auto 25.6 % (20-40); Mean Corpuscular HGB Conc 34.6 g/dl (31.0-36.0); Mean Corpuscular Hemoglobin 31.4 pg (27.0-33.0); Mean Corpuscular Volume 90.8 fL (80.0-98.0); Mean Platelet Volume 10.6 fL (9.4-12.4); Monocytes Absolute Auto 0.5 X10*3/uL (0.1-1.2); Monocytes Percent Auto 9.2 % (2-11); Neutrophils Absolute Auto 3.4 x10*3/uL (2.0-8.3); Neutrophils Percent Auto 59.8 % (45-73); Platelet Count 154 X10*3/uL (160-400); Red Blood Count 4.58 X10*6/uL (4.60-5.80); Red Cell Distribution Width 12.4 % (11.0-16.0); White Blood Count 5.7 X10*3/uL (4.8-10.8)
[2023-07-14 19:33] LABS: INTERNATIONAL NORM RATIO 0.9 (0.9-1.1)
[2023-07-14 19:40] LABS: Alanine Aminotransferase 24 U/L (0-40); Albumin Level 3.9 g/dL (3.5-5.0); Alkaline Phosphatase 125 U/L (39-117); Anion Gap 11 (12-20); Aspartate Amino Transferase 19 U/L (5-37); Bilirubin Total 1.1 mg/dL (0.0-1.0); Blood Urea Nitrogen 22 mg/dL (9-16); Calcium 8.5 mg/dL (8.4-10.2); Carbon Dioxide 22 mmol/L (22-29); Chloride 112 mmol/L (96-108); Creatinine Clr Calc Pharmacy 77.9; Estimated Glomerular Filt Rate > 60; Ethanol < 10 mg/dL; Glucose Random 254 mg/dL (60-115); Potassium 4.1 mmol/L (3.3-5.1); Sodium 141 mmol/L (135-145); Total Protein 6.5 g/dL (6.5-8.0)
[2023-07-14 19:46] LABS: Troponin-I High Sensitivity < 2.7 ng/L (<3.5-35.0)
[2023-07-14] MEDS: iohexoL 350 MG/ML 100 ML INFUS..BTL IV (20:10)
[2023-07-14] MEDS: Lidocaine 4 % Patch ADH..PATCH 1 PATCH TRANSDERMA (21:54)
[2023-07-14] MEDS: Acetaminophen 325 MG TABLET 975 MG PO (21:54)
[2023-07-14] MEDS: Diphth,Pertus(ACell),Tet Adult 0.5 ML SYRINGE IM (21:55)
[2023-07-14 22:02] VITALS: BP 138/82; PULSE 63; RESP 16; TEMP 36.4; O2SAT 97
[2023-07-14 22:58] VITALS: BP 116/77; PULSE 78; RESP 18; TEMP 36.3; O2SAT 95
== END 2023-07-14 22:59 | disposition home or self-care (01) ==
PROVIDERS: Physician Assistant; Emergency Provider Emergency Medicine Emergency Medical Services
DX: S01.91XA Laceration without foreign body of unspecified part of head, initial encounter (principal); S80.212A Abrasion, left knee, initial encounter; S06.0X0A Concussion without loss of consciousness, initial encounter; M25.562 Pain in left knee; M25.561 Pain in right knee; R51.9 Headache, unspecified; M54.2 Cervicalgia; I45.10 Unspecified right bundle-branch block; R07.89 Other chest pain; R94.31 Abnormal electrocardiogram [ECG] [EKG]; W01.10XA Fall on same level from slipping, tripping and stumbling with subsequent striking against unspecified object, initial encounter; Y93.9 Activity, unspecified; Y92.524 Gas station as the place of occurrence of the external cause; Y99.8 Other external cause status; Z79.899 Other long term (current) drug therapy; Z23 Encounter for immunization
CPT/HCPCS: 36415; 70450; 71260; 72125; 73560; 74177; 80053; 80307; 84484; 85025; 85610; 90471; 90715; 93005; 99284; 99285; Q9967

== ENCOUNTER → 2023-07-14 18:57 | Outpatient (BNV) | payer MEDICAID, SELFPAY | PROVIDERS: Emergency Provider Emergency Medicine Emergency Medical Services; Visit Provider Internal Medicine Cardiovascular Disease | DX: R94.31 Abnormal electrocardiogram [ECG] [EKG] (principal) | CPT/HCPCS: 93010 ==

== ENCOUNTER 2023-07-15 11:18 | Outpatient (REF) | payer MEDICAID, SELFPAY | END 2023-07-15 11:19 | disposition home or self-care (01) | LOC: HO.HOSX 11:18 | PROVIDERS: Visit Provider Orthopaedic Surgery | DX: Z13.89 Encounter for screening for other disorder (principal) ==

== ENCOUNTER 2023-07-29 19:49 | Outpatient (REF) | payer MEDICAID, SELFPAY ==
--- NOTE | ~2023-07-29 | MR_ITS ---
MR CERVICAL SPINE WITHOUT IV CONTRAST CLINICAL INFORMATION: Right-sided neck pain radiating to the right hand with intermittent paresthesias. COMPARISON: Cervical spine CT 07/14/2023. TECHNIQUE: MRI of the cervical spine was obtained using routine sequences without contrast. FINDINGS: Cervical alignment is normal. The vertebral body heights are maintained. There is severe disc volume loss at C5-C6. Multilevel endplate osteophytes. There is no bone marrow edema. There are no acute fractures. Right-sided atlantooccipital assimilation. Partially imaged intracranial compartment is unremarkable. Partial loss of the left cervical vertebral artery flow void suggesting a potential significant arterial stenosis that can be further assessed with a CTA of the head and neck as indicated. There are no cord signal changes accounting for artifact. C2-C3: Disc contour is normal. Moderate right-sided facet arthropathy. No central canal stenosis and no foraminal stenosis. C3-C4: A shallow disc protrusion mildly narrows the central canal and slightly flattens the ventral cord. Uncovertebral joint hypertrophy and hypertrophic facet arthropathy result in mild right-sided foraminal encroachment. C4-C5: A shallow disc protrusion slightly flattens the ventral cord and mildly narrows the central canal. Advanced left-sided uncovertebral joint hypertrophy and hypertrophic facet arthropathy result in moderate left-sided foraminal stenosis. C5-C6: Disc osteophyte mildly narrows the central canal. Advanced uncovertebral joint hypertrophy and hypertrophic facet arthropathy result in moderate to severe bilateral foraminal stenosis. C6-C7: A shallow disc protrusion and ligamentum flavum thickening result in mild to moderate central canal stenosis. A soft right foraminal disc protrusion results in severe right-sided foraminal stenosis and suspected compression of the exiting right C7 nerve root. C7-T1: Disc contour is normal. No central canal stenosis and no foraminal stenosis. MR/MR cervical spine wo con IMPRESSION: - At C6-C7, a right foraminal disc protrusion results in severe right-sided foraminal stenosis and suspected compression of the exiting right C7 nerve root. Mild to moderate central canal stenosis at this level. - Spondylitic changes result in moderate to severe bilateral foraminal stenosis at C5-C6 and moderate left-sided foraminal stenosis at C4-C5. Disc protrusions flatten the ventral cord and mildly narrow the central canal at C3-C4 and C4-C5. - Partial loss of the left cervical vertebral artery flow void suggesting a potential significant arterial stenosis that can be further assessed with a CTA of the head and neck as indicated.
== END 2023-07-29 19:50 | disposition home or self-care (01) ==
LOC: HO.MRI 19:49
PROVIDERS: PCP Family Medicine; Visit Provider Family Medicine
DX: M54.2 Cervicalgia (principal)
CPT/HCPCS: 72141

== ENCOUNTER 2023-08-08 23:05 | Emergency (ER) | payer MEDICAID, SELFPAY ==
--- NOTE | 2023-08-08 | ECG_ITS ---
Test Reason : chest pain Blood Pressure : / mmHG Vent. Rate : 069 BPM Atrial Rate : 069 BPM P-R Int : 148 ms QRS Dur : 148 ms QT Int : 450 ms P-R-T Axes : 048 258 043 degrees QTc Int : 482 ms Normal sinus rhythm Right bundle branch block Inferior infarct (cited on or before 10-JUN-2023) Abnormal ECG When compared with ECG of 14-JUL-2023 19:07, No significant change was found Referred By: Generic ED Physician Electronically Signed By:EAGLE HURST MD
--- NOTE | ~2023-08-08 | XR_ITS ---
EXAMINATION: XR CHEST CLINICAL INFORMATION: Dyspnea. COMPARISON: 02/23/2023 TECHNIQUE: 2 views of the chest were obtained. FINDINGS: The lung volumes are low. The cardiomediastinal silhouette is stable. There has been a previous median sternotomy. There is no focal lung consolidation or pleural effusion. The bony structures and soft tissues are unremarkable. XR/XR chest 2V IMPRESSION: Low lung volumes. No evidence for acute disease.
[2023-08-08 23:13] VITALS: BP 137/74; PULSE 79; RESP 20; TEMP 36.7; O2SAT 98; BMI 25.8
[2023-08-08 23:19] LABS: MANUAL DIFF FLAG NO
[2023-08-08 23:21] LABS: Basophils Percent Auto 0.5 % (0-2); Eosinophils Absolute Auto 0.3 X10*3/uL (0.0-0.4); Eosinophils Percent Auto 4.4 % (0-4); Hematocrit 39.8 % (42.0-52.0); Hemoglobin 13.6 g/dl (14.0-18.0); Imm Gran Abs Auto 0.01 X10*3/uL (0.00-0.03); Imm Gran Pct Auto 0.2 % (0.0-0.4); Lymphocytes Absolute Auto 1.7 X10*3/uL (1.2-4.9); Lymphocytes Percent Auto 29.8 % (20-40); Mean Corpuscular HGB Conc 34.2 g/dl (31.0-36.0); Mean Corpuscular Hemoglobin 31.1 pg (27.0-33.0); Mean Corpuscular Volume 90.9 fL (80.0-98.0); Mean Platelet Volume 10.6 fL (9.4-12.4); Monocytes Absolute Auto 0.5 X10*3/uL (0.1-1.2); Monocytes Percent Auto 8.7 % (2-11); Neutrophils Absolute Auto 3.2 x10*3/uL (2.0-8.3); Neutrophils Percent Auto 56.4 % (45-73); Platelet Count 173 X10*3/uL (160-400); Red Blood Count 4.38 X10*6/uL (4.60-5.80); Red Cell Distribution Width 12.7 % (11.0-16.0); White Blood Count 5.6 X10*3/uL (4.8-10.8)
[2023-08-08 23:39] LABS: Alanine Aminotransferase 31 U/L (0-40); Albumin Level 4.1 g/dL (3.5-5.0); Alkaline Phosphatase 117 U/L (39-117); Anion Gap 12 (12-20); Aspartate Amino Transferase 36 U/L (5-37); Bilirubin Total 1.2 mg/dL (0.0-1.0); Blood Urea Nitrogen 32 mg/dL (9-16); Calcium 8.8 mg/dL (8.4-10.2); Carbon Dioxide 25 mmol/L (22-29); Chloride 109 mmol/L (96-108); Creatinine Clr Calc Pharmacy 62.3; Estimated Glomerular Filt Rate 59; Glucose Random 179 mg/dL (60-115); Potassium 3.5 mmol/L (3.3-5.1); Sodium 142 mmol/L (135-145); Total Protein 6.7 g/dL (6.5-8.0)
[2023-08-08 23:44] LABS: Troponin-I High Sensitivity 4.8 ng/L (<3.5-35.0)
[2023-08-09 00:35] VITALS: BP 126/70; PULSE 66; PULSE 75; RESP 16; O2SAT 98
--- NOTE | 2023-08-09 00:50 | ED_ITS ---
HPI - Chest Pain General Chief Complaint: Chest Pain Stated Complaint: Chest pain Time Seen by Provider: 08/09/23 00:39 Source: patient Mode of arrival: ambulatory Limitations: no limitations History of Present Illness HPI narrative: Patient comes in the emergency room that started approximately 2.5 hours ago. Patient states that he was at home, having a verbal altercation and soon after patient started having chest pain. Patient states that at home he took nitroglycerin 3 tablets with no relief. Patient states that he has history of cardiac bypass, stents and diabetes. Patient states that throughout the day he was doing well, had no chest pain at all or shortness of breath, only chest pain started while he was in the argument. Patient states that he still has chest pain but is feeling better than earlier today. Related Data Home Medications ?Medication ?Instructions ?Recorded ?Confirmed atorvastatin 80 mg tablet 80 mg PO DAILY 04/11/20 06/05/23 carvedilol 3.125 mg tablet 3.125 mg PO BID 04/11/20 06/05/23 clopidogrel 75 mg tablet 75 mg PO DAILY 04/11/20 06/05/23 ezetimibe 10 mg tablet (Zetia) 10 mg PO DAILY 04/11/20 06/05/23 gabapentin 800 mg tablet 800 mg PO BID 04/11/20 06/05/23 isosorbide mononitrate 60 mg 60 mg PO DAILY 04/11/20 06/05/23 tablet,extended release 24 hr lisinopril 2.5 mg tablet 2.5 mg PO DAILY 04/11/20 06/05/23 melatonin 5 mg capsule See Rx Instructions PO ONCE 04/11/20 06/05/23 ammonium lactate 12 % topical cream 1 appl topical BID 07/11/21 06/05/23 fluticasone propionate 50 1 - 2 spray intranasal DAILY PRN 01/17/22 06/05/23 mcg/actuation nasal congestion spray,suspension naproxen 500 mg tablet 500 mg PO moderate pain 06/13/22 06/05/23 tizanidine 4 mg tablet 4 mg PO TID 06/13/22 06/05/23 aspirin 81 mg chewable tablet 81 mg PO QAM 07/25/22 06/05/23 pregabalin 100 mg capsule 100 mg PO ONCE 07/25/22 06/05/23 Previous Rx's ?Medication ?Instructions ?Recorded magnesium citrate 300 ml PO DAILY PRN constipation 02/28/20 #296 mL blood sugar diagnostic (FreeStyle 1 strip miscellaneous QID PRN for 09/19/20 Lite Strips) diabetes mellitus #150 strips blood-glucose meter (FreeStyle 1 ea miscellaneous DIRECTED #1 09/26/20 Lyons Lite kit) kit lancets 33 gauge (TRUEplus Lancets) 1 gauge miscellaneous QID for 10/12/20 diabetes mellitus #100 ea flash glucose scanning reader #1 ea 01/01/21 (FreeStyle Alfredo 2 [place]) flash glucose sensor (FreeStyle #2 ea 01/01/21 Alfredo 2 Sensor kit) dicyclomine 20 mg tablet 20 mg PO QID PRN abdominal pain 02/06/21 #20 tabs insulin glargine 100 unit/mL (3 30 unit (0.3 mL) subcut DAILY #15 08/06/21 mL) subcutaneous pen (Lantus mL Solostar U-100 Insulin) metformin 500 mg tablet 1,000 mg (2 x 500 mg) PO BID 30 12/12/21 days #120 tabs pen needle, diabetic 32 gauge x See Rx Instructions .Route 01/31/2232 (Pentips) .COMPLEX #200 ea diclofenac sodium 1 % topical gel 2 g topical QID 30 days #100 grams 02/27/22 insulin aspart U-100 100 unit/mL See Rx Instructions subcut QID #30 03/27/22 (3 mL) subcutaneous pen (Novolog mL FlexPen U-100 Insulin aspart) hydrocortisone 2.5 % topical cream 1 appl [place] BID PRN hemorrhoids #30 06/13/22 with perineal applicator grams (Proctozone-HC) methylcellulose (laxative) 500 mg 500 mg PO TID #90 tabs 09/16/22 tablet (Citrucel) polyethylene glycol 3350 17 17 g PO DAILY 30 days #510 grams 09/16/22 gram/dose oral powder (Miralax) furosemide 20 mg tablet (Lasix) 20 mg PO DAILY 90 days #90 tabs 10/03/22 nitroglycerin 0.4 mg sublingual 0.4 mg sublingual Q5M PRN angina 10/03/22 tablet pectoris #30 tabs cyclobenzaprine 5 mg tablet 5 mg PO BEDTIME PRN muscle spasm 02/23/23 #4 tabs ketorolac 10 mg tablet 10 mg PO Q6H PRN pain 5 days #20 02/23/23 tabs potassium citrate 10 mEq (1,080 20 meq (2 x 10 mEq (1,080 mg)) PO 06/03/23 mg) tablet,extended release BID 90 days #360 tabs doxazosin 4 mg tablet 8 mg (2 x 4 mg) PO BEDTIME 90 days 06/05/23 #180 tabs finasteride 5 mg tablet 5 mg PO DAILY 90 days #90 tabs 06/05/23 cyclobenzaprine 10 mg tablet 10 mg PO TID PRN muscle spasm #20 06/10/23 tabs hydrocodone 5 mg-acetaminophen 325 1 tab PO Q6H PRN pain #10 tabs 06/10/23 mg tablet lidocaine 5 % topical patch 1 patch topical DAILY #30 ea 06/10/23 docusate sodium 100 mg capsule 200 mg (2 x 100 mg) PO BEDTIME #60 07/02/23 caps acetaminophen 325 mg capsule 325 mg PO Q4H PRN pain #30 caps 07/14/23 (Tylenol) lidocaine 5 % topical patch 1 patch topical DAILY PRN pain #15 07/14/23 ea ranolazine 500 mg tablet,extended 500 mg PO BID #180 tabs 07/30/23 release,12 hr Allergies Allergy/AdvReac Type Severity Reaction Status Date / Time No Known Allergies Allergy Verified 08/08/23 23:18 [No Known Allergies*] Review of Systems 2 Review of Systems: Constitutional : No Weight loss, No Fever, No Chills, No Night Sweats, No Fatigue, No Malaise ENT/Mouth : No Hearing loss, No Ear Pain, No Nasal Congestion, No Sinus Pain, No Hoarseness, No sore throat, No Rhinorrhea, No Swallowing Difficulty Eyes: No Eye Pain, No Swelling, No Redness, No Foreign Body, No Discharge, No Vision Changes Cardiovascular : Complaining of chest pain, No SOB, No Dyspnea on Exertion, No Orthopnea, No Edema, No Palpitations Respiratory : No Cough, No Sputum, No Wheezing, No Smoke Exposure, No Dyspnea Gastrointestinal : No Nausea, No Vomiting, No Diarrhea, No Constipation, No abdominal Pain, No Hematochezia, No Melena Genitourinary : no irregular bleeding, No Dysuria, No Urinary Frequency, No Hematuria, No Urinary Incontinence, No Urgency, No Flank Pain, No Urinary Flow Changes, No Hesitancy Musculoskeletal : No joint pain, No Myalgias, No Joint Swelling Skin : No Skin Lesions, No rash Neuro : No Weakness, No Numbness, No Paresthesias, No Loss of Consciousness, No Dizziness, No Headache Psych : No Anxiety/Panic, No Depression, No SI/HI/AH/VH, No Social Issues, Heme/Lymph: No Bruising, No Bleeding,No Lymphadenopathy Endocrine : No Polyuria, No Polydipsia, No Temperature Intolerance [facility] Past Medical History Medical History Ischemic cardiomyopathy Atherosclerotic cardiovascular disease History of pancreatitis Hepatitis B Hepatitis C Chronic HFrEF (heart failure with reduced ejection fraction) Cardiomyopathy Type 2 diabetes mellitus with hyperglycemia, with long-term current use of insulin Type 2 diabetes mellitus with diabetic polyneuropathy Hyperlipidemia LDL goal <70 Essential hypertension Myocardial infarction Surgical History Hx of colonoscopy History of appendectomy Hx of heart artery stent H/O coronary artery bypass surgery H/O cardiac catheterization Family History Family History Mother Diabetes Social History Social History Household Members: Spouse Alcohol intake: never Patient Tobacco Use Status: Never used Tobacco Smoked in Last 30 Days: No Use of substances other than those prescribed or required for medical reasons: No Advance Directives: No Advance Directives Information Provided: Yes Do you have a plan to hurt others: No Plan Current occupational status: unemployed Physical Exam 2 Vital Signs: Vital Signs: Last Vital Signs Temp 98.1 F 08/09/23 02:06 Pulse 69 08/09/23 02:06 Resp 23 H 08/09/23 02:06 BP 110/77 08/09/23 02:06 Pulse Ox 94 08/09/23 02:06 O2 Del Method Room Air 08/09/23 02:06 BMI result Body Mass Index 25.8 Const: Other: Appearance: Alert. Oriented X3. Anxious Eyes: Pupils equal, round and reactive to light. ENT: Pharynx normal. Neck: Normal inspection. Neck supple. No lymph nodes noted. No crepitus CVS: Normal heart rate and rhythm. Pulses normal. Normal S1 and S2 Respiratory: No respiratory distress. Breath sounds normal. No Wheezing. No rales Abdomen: Soft and nontender. No rigidity. No distention. Skin: Skin warm and dry. Normal skin color. Normal skin turgor. Extremities: No lower extremity edema. No Lacerations. No Rash Neuro: Oriented X 3. No motor deficit. No sensory deficit. Moving all extremities. No slurred speech. CN 2 through 12 grossly intact Psych: calm, cooperative, anxious Medications Administered Discontinued Medications Generic Name Dose Route Start Last Admin Trade Name Sonidoq PRN Reason Stop Dose Admin Lorazepam 1 mg 08/09/23 00:49 08/09/23 01:28 Lorazepam 1 Mg Tablet PO 08/09/23 00:50 1 mg ONCE ONE Administration Morphine Sulfate 1 mg 08/09/23 00:49 08/09/23 01:28 Morphine Sulfate 2 Mg/Ml Cartridge IVPUSH 08/09/23 00:50 1 mg ONCE ONE Administration Protocol Medical Decision Making Medical Decision Making [facility] Narrative: -my interpretation of EKG: Normal sinus rhythm, heart rate 69, no ST segment depression or elevation, right bundle branch block, QTC 482 -my interpretation of labs: Hematology at baseline, chemistry at baseline, troponin negative -my interpretation of chest x-ray: No infiltrates -in the emergency room, patient was given 1 mg of morphine for comfort, and 1 mg of p.o. Ativan, patient is very anxious about his recent verbal altercation -2 sets of enzymes/troponin are negative. Patient more calm, feeling better. Differential Diagnosis Differential Diagnoses: The differential diagnosis associated with the presentation includes (ACS, STEMI, NSTEMI, anxiety, panic attack) Admission/Observation Consideration of admission/observation: Escalation of care including admission/observation considered (And sitting patient's past medical history and symptoms, admission was considered) Lab Data [facility] Lab Attestation statement: I reviewed the patient's lab results. 08/08/23 23:14 08/08/23 23:14 Labs: Lab Results 08/08/23 08/09/23 Range/Units 23:14 02:10 WBC 5.6 (4.8-10.8) X10*3/uL RBC 4.38 L (4.60-5.80) X10*6/uL Hgb 13.6 L (14.0-18.0) g/dl Hct 39.8 L (42.0-52.0) % MCV 90.9 (80.0-98.0) fL MCH 31.1 (27.0-33.0) pg MCHC 34.2 (31.0-36.0) g/dl RDW 12.7 (11.0-16.0) % Plt Count 173 (160-400) X10*3/uL MPV 10.6 (9.4-12.4) fL Immature Gran % (Auto) 0.2 (0.0-0.4) % Neut % (Auto) 56.4 (45-73) % Lymph % (Auto) 29.8 (20-40) % Baker % (Auto) 8.7 (2-11) % Eos % (Auto) 4.4 H (0-4) % Baso % (Auto) 0.5 (0-2) % Lymph # (Auto) 1.7 (1.2-4.9) X10*3/uL Baker # (Auto) 0.5 (0.1-1.2) X10*3/uL Eos # (Auto) 0.3 (0.0-0.4) X10*3/uL Baso # (Auto) 0.0 (0.0-0.2) X10*3/uL Abs Immat Gran (auto) 0.01 (0.00-0.03) X10*3/uL Absolute Neuts (auto) 3.2 (2.0-8.3) x10*3/uL Absolute Nucleated RBC 0.000 (0.0-0.012) X10*3/uL Nucleated RBC % (auto) 0.0 (0.0-0.2) /100WBC Sodium 142 (135-145) mmol/L Potassium 3.5 (3.3-5.1) mmol/L Chloride 109 H (96-108) mmol/L Carbon Dioxide 25 (22-29) mmol/L Anion Gap 12 (12-20) BUN 32 H (9-16) mg/dL Creatinine 1.25 (0.5-1.4) mg/dL Estim Creat Clear Calc 62.3 Estimated GFR 59 Random Glucose 179 H (60-115) mg/dL Calcium 8.8 (8.4-10.2) mg/dL Total Bilirubin 1.2 H (0.0-1.0) mg/dL AST 36 (5-37) U/L ALT 31 (0-40) U/L Alkaline Phosphatase 117 (39-117) U/L Troponin I High Sens 4.8 D 3.9 (<3.5-35.0) ng/L Total Protein 6.7 (6.5-8.0) g/dL Albumin 4.1 (3.5-5.0) g/dL Independent Interpretation I performed an independent interpretation of an: Plain X-Ray Radiology Impression Discussion of test interpretation with radiology: I have reviewed the radiologist's reading. Radiologist Impression: The lung volumes are low. The cardiomediastinal silhouette is stable. There has been a previous median sternotomy. There is no focal lung consolidation or pleural effusion. The bony structures and soft tissues are unremarkable. XR/XR chest 2V IMPRESSION: Low lung volumes. No evidence for acute disease. Critical Care Time Critical Care Time Critical Care Time: Yes Total Critical Care Time: 45 Attestation: I have personally provided critical care time. Time includes review of lab data, radiology results, discussion with consultants, and monitoring for potential decompensation. Intervention performed as documented. Discharge Plan Discharge Clinical Impression: Atypical chest pain Patient Disposition: Home, Self-Care Instructions: Chest Pain (ED) Additional Instructions: Please follow-up with your primary care physician tomorrow. If you have any worsening or new symptoms, please return to the emergency room or call 911 Prescriptions: No Action blood sugar diagnostic [FreeStyle Lite Strips] Strip 1 strip miscellaneous QID PRN (Reason: for diabetes mellitus) Qty: 150 11RF blood-glucose meter [FreeStyle [place] Lite] Kit 1 ea miscellaneous DIRECTED Qty: 1 0RF lancets [TRUEplus Lancets] 33 gauge misc 1 gauge miscellaneous QID Qty: 100 11RF metformin 500 mg tablet 1,000 mg PO BID 30 Days Qty: 120 4RF pen needle, diabetic [Pentips] 32 gauge x 5/32 needle See Rx Instructions .ROUTE .COMPLEX Qty: 200 2RF Dose Instruction: USE SIX TIMES DAILY DIRECTED Rx Instructions: USE SIX TIMES DAILY DIRECTED insulin aspart U-100 [Novolog FlexPen U-100 Insulin] 100 unit/mL (3 mL) insulin pen See Rx Instructions subcut QID Qty: 30 0RF Rx Instructions: 6-8 units with meals, 2 units with snack subcut 4 times a day; furosemide [Lasix] 20 mg tablet 20 mg PO DAILY 90 Days Qty: 90 3RF nitroglycerin 0.4 mg tablet, sublingual 0.4 mg sublingual Q5M PRN (Reason: angina pectoris) Qty: 30 3RF Rx Instructions: do not exceed 3 doses per episode potassium citrate 10 mEq (1,080 mg) tablet extended release 20 meq PO BID 90 Days Qty: 360 1RF docusate sodium 100 mg capsule 200 mg PO BEDTIME Qty: 60 5RF ranolazine 500 mg tablet extended release 12 hr 500 mg PO BID Qty: 180 3RF magnesium citrate Solution 300 ml PO DAILY PRN (Reason: constipation) Qty: 296 0RF dicyclomine 20 mg tablet 20 mg PO QID PRN (Reason: abdominal pain) Qty: 20 0RF ketorolac 10 mg tablet 10 mg PO Q6H PRN (Reason: pain) 5 Days Qty: 20 0RF Rx Instructions: Patient received Toradol in the emergency room cyclobenzaprine 5 mg tablet 5 mg PO BEDTIME PRN (Reason: muscle spasm) Qty: 4 0RF cyclobenzaprine 10 mg tablet 10 mg PO TID PRN (Reason: muscle spasm) Qty: 20 0RF hydrocodone-acetaminophen 5-325 mg tablet 1 tab PO Q6H PRN (Reason: pain) Qty: 10 0RF Rx Instructions: partial fill okay; Partial Fill upon patient request. lidocaine 5 % adhesive patch,medicated 1 patch topical DAILY Qty: 30 0RF Rx Instructions: leave on most painful area for up to 12 hrs lidocaine 5 % adhesive patch,medicated 1 patch topical DAILY PRN (Reason: pain) Qty: 15 0RF Rx Instructions: leave on most painful area for up to 12 hrs acetaminophen [Tylenol] 325 mg capsule 325 mg PO Q4H PRN (Reason: pain) Qty: 30 0RF clopidogrel 75 mg tablet 75 mg PO DAILY carvedilol 3.125 mg tablet 3.125 mg PO BID Rx Instructions: must administer with a meal/food lisinopril 2.5 mg tablet 2.5 mg PO DAILY isosorbide mononitrate 60 mg tablet extended release 24 hr 60 mg PO DAILY atorvastatin 80 mg tablet 80 mg PO DAILY melatonin 5 mg capsule See Rx Instructions PO ONCE Rx Instructions: 5 mg (2 tab) PO once; gabapentin 800 mg tablet 800 mg PO BID ezetimibe [Zetia] 10 mg tablet 10 mg PO DAILY (DME) FreeStyle Alfredo 2 [place] Misc See Rx Instructions .ROUTE .MEDSUPPLY Qty: 1 0RF Rx Instructions: As directed (DME) FreeStyle Alfredo 2 Sensor Kit See Rx Instructions .ROUTE .MEDSUPPLY Qty: 2 11RF Rx Instructions: As directed every 2 weeks ammonium lactate 12 % cream 1 appl topical BID Lantus Solostar U-100 Insulin 100 unit/mL (3 mL) insulin pen 30 unit subcut DAILY Qty: 15 4RF fluticasone propionate 50 mcg/actuation spray,suspension 1 - 2 spray intranasal DAILY PRN (Reason: congestion) aspirin 81 mg tablet,chewable 81 mg PO QAM diclofenac sodium 1 % gel 2 g topical QID 30 Days Qty: 100 8RF Rx Instructions: apply to hand; for hand includes palm/fingers/back of hand pregabalin 100 mg capsule 100 mg PO ONCE naproxen 500 mg tablet 500 mg PO tizanidine 4 mg tablet 4 mg PO TID hydrocortisone [Proctozone-HC] 2.5 % cream with perineal applicator 1 appl [place] BID PRN (Reason: hemorrhoids) Qty: 30 3RF Rx Instructions: apply VA BID prn Citrucel 500 mg tablet 500 mg PO TID Qty: 90 5RF polyethylene glycol 3350 [Miralax] 17 gram/dose powder 17 g PO DAILY 30 Days Qty: 510 6RF doxazosin 4 mg tablet 8 mg PO BEDTIME 90 Days Qty: 180 1RF finasteride 5 mg tablet 5 mg PO DAILY 90 Days Qty: 90 1RF Print Language: Romanian
[2023-08-09] MEDS: Morphine Sulfate 2 MG/ML CARTRIDGE 1 MG IVPUSH (01:28)
[2023-08-09] MEDS: LORazepam 1 MG TABLET PO (01:28)
[2023-08-09 02:06] VITALS: BP 110/77; PULSE 69; RESP 23; TEMP 36.7; O2SAT 94
[2023-08-09 02:39] LABS: Troponin-I High Sensitivity 3.9 ng/L (<3.5-35.0)
[2023-08-09 03:15] LABS: B Type Natriuretic Peptide 53 pg/mL (<100)
[2023-08-09 03:35] VITALS: BP 133/76; PULSE 82; RESP 16; TEMP 36.7; O2SAT 99
== END 2023-08-09 03:36 | disposition home or self-care (01) ==
PROVIDERS: Emergency Provider Emergency Medicine
DX: R07.89 Other chest pain (principal); E11.9 Type 2 diabetes mellitus without complications; I11.0 Hypertensive heart disease with heart failure; I50.22 Chronic systolic (congestive) heart failure; I25.10 Atherosclerotic heart disease of native coronary artery without angina pectoris; I25.2 Old myocardial infarction; Z95.1 Presence of aortocoronary bypass graft; Z95.5 Presence of coronary angioplasty implant and graft
CPT/HCPCS: 36415; 71046; 80053; 83880; 84484; 85025; 93005; 96374; 99284; 99285; J2270

== ENCOUNTER → 2023-08-08 23:07 | Outpatient (BNV) | payer MEDICAID, SELFPAY | PROVIDERS: Emergency Provider Emergency Medicine; Visit Provider Internal Medicine Cardiovascular Disease | DX: I45.10 Unspecified right bundle-branch block (principal) | CPT/HCPCS: 93010 ==

== ENCOUNTER 2023-08-28 07:46 | Outpatient (REF) | payer MEDICAID, SELFPAY ==
--- NOTE | ~2023-08-28 | XR_ITS ---
EXAMINATION: XR KNEE, LEFT CLINICAL INFORMATION: Left knee pain COMPARISON: Left knee x-ray on 07/14/2023 TECHNIQUE: 3 view x-rays of the left knee, frontal x-ray of bilateral knees. FINDINGS: BONES: Bony structures are intact. Sharp osteophytes are seen at superior and inferior left patellar articular border. There is no focal bone destruction or periosteal reaction seen. JOINTS: Alignment of joints is normal. There is mild decrease in medial compartment left tibiofemoral joint space. SOFT TISSUE: Soft tissue is normal. Extensive surgical clips are seen in medial left thigh and proximal left leg. No radiopaque foreign body or abnormal air collection is seen. XR/XR knee LT 3V IMPRESSION: 1. Persistent medial compartment left tibiofemoral joint and left patellofemoral joint osteoarthritis. 2. Unchanged status post extensive medial left thigh and left leg vascular surgery. 3. No fracture or dislocation or signs of osteomyelitis are found.
== END 2023-08-28 07:47 | disposition home or self-care (01) ==
LOC: HO.HOSX 07:46
PROVIDERS: Visit Provider Orthopaedic Surgery
DX: M17.12 Unilateral primary osteoarthritis, left knee (principal); E11.65 Type 2 diabetes mellitus with hyperglycemia; Z79.4 Long term (current) use of insulin; Z91.81 History of falling
CPT/HCPCS: 73562; 99202

== ENCOUNTER 2023-08-28 08:51 | Outpatient (AMB) | payer MEDICAID, SELFPAY ==
--- NOTE | 2023-08-28 08:52 | A.OFFVIS_ITS ---
Vital Signs 08/28/23 08:54 Height 5 ft 8 in Weight 170 lb BMI 25.8 Intake Visit Reasons: New Pt - Left Knee Pain Intake Note: Barrett is a 58 year old male who presents today as a new patient with complaints of left knee pain. Patient reports that he has had pain in this knee for quite some time. He explains that he tripped and landed on this knee about 2 months ago causing increased pain. He has not tried any previous therapies. Pain increases at the base of the patellla when going down the stairs, as well as prolonged walking. The knee frequently ricky since tripping and injuring the knee. Patient is currently being treated with Pain Management, Hx of Bilateral SI joint injections 09/10/22 Cervical Spondylosis C5-C6 Networks Computer Consultant Required: Yes Networks Computer Consultant Name: [id number] Allergies No Known Allergies [No Known Allergies*] Allergy (Verified 08/08/23 23:18) HPI HPI New Pt - Left Knee Pain: Details: Barrett is a 58 year old male who presents today as a new patient with complaints of left knee pain. Patient reports that he has had pain in this knee for quite some time. He explains that he tripped and landed on this knee about 2 months ago causing increased pain. He has not tried any previous therapies. Pain increases at the base of the patellla when going down the stairs, as well as prolonged walking. The knee frequently ricky since tripping and injuring the knee. Patient is currently being treated with Pain Management, Hx of Bilateral SI joint injections 09/10/22 Cervical Spondylosis C5-C6 [facility] Medical History Ischemic cardiomyopathy Atherosclerotic cardiovascular disease History of pancreatitis Hepatitis B Hepatitis C Chronic HFrEF (heart failure with reduced ejection fraction) Cardiomyopathy Type 2 diabetes mellitus with hyperglycemia, with long-term current use of insulin Type 2 diabetes mellitus with diabetic polyneuropathy Hyperlipidemia LDL goal <70 Essential hypertension Myocardial infarction Surgical History Hx of colonoscopy History of appendectomy Hx of heart artery stent H/O coronary artery bypass surgery H/O cardiac catheterization Family History Mother Diabetes Social History Household Members: Spouse Alcohol intake: never Patient Tobacco Use Status: Never used Tobacco Current occupational status: unemployed Physical Exam Vital Signs: BMI result Body Mass Index 25.8 Const General: cooperative, healthy appearing, no acute distress, well developed and alert HEENT Head: Yes normal to inspection, Yes normocephalic and Yes atraumatic Mouth: moist mucous membranes Eyes General: appearance normal, both eyes and all related structures EOM: EOMs intact bilaterally Chest Other: no audible wheezing. Resp Other: No audible wheezing Effort & Inspection: normal respiratory effort Back/Spine/Pelvis Cervical Spine: normal cervical lordosis Skin General skin exam: no rashes or lesions noted Neuro General: no focal motor deficits Extrem Other: Left knee with full range of motion and no effusion. He has tenderness to palpation under the lateral facet of the left patella that reproduces his primary complaint Psych Appearance: grossly normal and well kempt Mental Status: mental status grossly normal Speech and movement: Normal speech and movement present Affect: normal affect Attitude: cooperative Results Reviewed Results Reviewed: I personally reviewed relevant radiographs. There is evidence of vein harvesting from the left leg and there is mild medial compartment and moderate anterior compartment osteoarthritis of the left knee Assessment & Plan Assessment & Plan (1) Osteoarthritis of patellofemoral joint: Code(s): M17.10 - Unilateral primary osteoarthritis, unspecified knee Category: Medical Plan: This is a 58-year-old gentleman with multiple medical conditions including history of cardiomyopathy and diabetes who comes in today with a left patellofemoral osteoarthritis. The pain has been exacerbated by a recent fall and his primary complaint is pain with stairs. I discussed his diagnosis and treatment options. At this point we will try a knee sleeve and activity modification as needed. Should he feel this is not helpful he can return and we consider injections. 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 Orders: Orders XR knee LT 3V Today M25.562 - Pain in left knee Coding Level of Care Code New Pt Level 4 (18674) Diagnoses Osteoarthritis of patellofemoral joint M17.10 Type 2 diabetes mellitus with hyperglycemia, with long-term current use of ins ulin E11.65; Z79.4
[2023-08-28 08:54] VITALS: BMI 25.8
== END 2023-08-28 09:29 | disposition home or self-care (01) ==
PROVIDERS: PCP Family Medicine; Visit Provider Orthopaedic Surgery
DX: M17.10 Unilateral primary osteoarthritis, unspecified knee (principal); E11.65 Type 2 diabetes mellitus with hyperglycemia; Z79.4 Long term (current) use of insulin
CPT/HCPCS: 99204

== ENCOUNTER 2024-01-13 13:56 | Outpatient (AMB) | payer MEDICAID, SELFPAY ==
--- NOTE | 2024-01-13 14:10 | A.OFFVIS_ITS ---
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: No Allergies No Known Allergies [No Known Allergies*] Allergy (Verified 01/13/24 14:12) Medication List - Last Reconciled 01/13/24 by Nigel Arboleda MD acetaminophen (Tylenol) 325 mg PO Q4H PRN ammonium lactate 12% 1 appl topical BID aspirin 81 mg PO QAM atorvastatin 80 mg PO DAILY blood sugar diagnostic (FreeStyle Lite Strips) 1 strip miscellaneous QID PRN blood-glucose meter (FreeStyle Moran Lite kit) 1 ea miscellaneous DIRECTED carvedilol 3.125 mg PO BID clopidogrel 75 mg PO DAILY diclofenac sodium 1% 2 grams topical QID 30 days dicyclomine 20 mg PO QID PRN docusate sodium 200 mg (2 x 100 mg) PO BEDTIME doxazosin 8 mg (2 x 4 mg) PO BEDTIME 90 days ezetimibe (Zetia) 10 mg PO DAILY finasteride 5 mg PO DAILY 90 days flash glucose scanning reader (FreeStyle Alfredo 2 Brimson) As directed flash glucose sensor (FreeStyle Alfredo 2 Sensor kit) As directed every 2 weeks fluticasone propionate 50 mcg/actuation 1 - 2 sprays intranasal DAILY PRN furosemide (Lasix) 20 mg PO DAILY 90 days gabapentin 800 mg PO BID hydrocodone-acetaminophen 5-325 mg 1 tab PO Q6H PRN hydrocortisone 2.5% (Proctozone-HC) 1 appl WI BID PRN insulin aspart U-100 (Novolog FlexPen U-100 Insulin aspart) 6-8 units with meals, 2 units with snack subcut 4 times a day; insulin glargine (Lantus Solostar U-100 Insulin) 30 units (0.3 mL) subcut DAILY isosorbide mononitrate ER 60 mg PO DAILY ketorolac 10 mg PO Q6H PRN 5 days lancets (TRUEplus Lancets) 1 gauge miscellaneous QID lidocaine 5% 1 patch topical DAILY PRN lidocaine 5% 1 patch topical DAILY lisinopril 2.5 mg PO DAILY magnesium citrate 300 mL PO DAILY PRN melatonin 5 mg (2 tab) PO once; metformin 1,000 mg (2 x 500 mg) PO BID 30 days methylcellulose (laxative) (Fiber Laxative (methylcellulose)) 500 mg PO TID naproxen 500 mg PO nitroglycerin 0.4 mg sublingual Q5M PRN pen needle, diabetic (Pentips) USE SIX TIMES DAILY DIRECTED polyethylene glycol 3350 (Miralax) 17 grams PO DAILY 30 days potassium citrate ER 20 mEq (2 x 10 mEq (1,080 mg)) PO BID 90 days pregabalin 100 mg PO ONCE ranolazine ER 500 mg PO BID tadalafil 10 mg PO DAILY 90 days tizanidine 4 mg PO TID HPI Comments Details: Barrett is a pleasant [place]ian-speaking male. He is a patient of Dr. Basilio. He is seen for following urologic conditions - lower urinary tract symptoms - erectile dysfunction - background diabetes with long-term insulin use Bur[place]ian translation provided by qualified medical assistant internal medicine UA today 2+ glucose, spec graft 130 PVR 0 cc Finasteride and doxazosin 8 mg Prostate 35 cc Open bladder neck on cystoscopy Has questions about erectile dysfunction. Background diabetes. Long-term insulin use. Start 10 mg daily tadalafil Check testosterone levels Lower urinary tract symptoms History of incomplete bladder emptying with weakness of stream Previously seen at [facility] for urinary retention with 600 cc and Bender catheter use in 2022 Managed with doxazosin 4 mg daily, finasteride initiated at time of retention Imaging 05/07 - Mild diffuse thickening and mucosal irregularity of the bladder wall. Bilateral ureteral jets are demonstrated. Prevoid bladder volume is 235 mL. Postvoid bladder volume is 35.5 mL. Prostate volume 35.6 mL. Cystoscopy 06/07 open bladder neck [facility] Medical History Ischemic cardiomyopathy Atherosclerotic cardiovascular disease History of pancreatitis Hepatitis B Hepatitis C Chronic HFrEF (heart failure with reduced ejection fraction) Cardiomyopathy Type 2 diabetes mellitus with hyperglycemia, with long-term current use of insulin Type 2 diabetes mellitus with diabetic polyneuropathy Hyperlipidemia LDL goal <70 Essential hypertension Myocardial infarction Surgical History Hx of colonoscopy History of appendectomy Hx of heart artery stent H/O coronary artery bypass surgery H/O cardiac catheterization Family History Mother Diabetes Social History Household Members: Spouse Alcohol intake: never Patient Tobacco Use Status: Never used Tobacco Current occupational status: unemployed Review of Systems Const Denies chills and Denies fever(s) Card Reports no additional complaints and Denies syncope Resp Denies cough GI Denies abdominal pain and Denies heartburn Reports as per HPI and Denies change in libido Neuro Denies syncope Psych Denies change in libido Endo Denies change in libido Physical Exam Const General: cooperative, healthy appearing, comfortable and no acute distress Orientation/consciousness: patient oriented x3 HEENT Face and sinus: Yes normal facial exam Mouth: moist mucous membranes Neck Neck: Yes normal visual inspection, Yes full ROM and Yes trachea midline Chest Chest palpation & inspection: normal inspection of the chest Resp Effort & Inspection: normal respiratory effort, able to speak in complete sentences and no respiratory distress GI Inspection: Yes normal to inspection Back/Spine/Pelvis Cervical Spine: normal cervical lordosis Thoracic/Lumbar Spine: thoracic and lumbar spine normal to inspection Skin General skin exam: no rashes or lesions noted Neuro General: patient oriented x3, gait normal, tone normal and moves all extremities Extrem General: Yes normal to inspection and Yes capillary refill normal Office Procedures Post Void Residual Post Residual Void Post Void Residual (PVR): 0 [id number] Void Residual by ultrasound Results AMB Urinalysis, Automated UA Leukoctes 15 Keri/uL Last Edit by CANDY Duval on 01/13/24 14:21 UA Nitrite Negative Last Edit by CANDY Duval on 01/13/24 14:21 UA Urobilinogen 0.2 mg/dL Last Edit by CANDY Duval on 01/13/24 14:2 1 UA Protein 15 mg/dL Last Edit by CANDY Duval on 01/13/24 14:21 UA pH 6.0 Last Edit by CANDY Duval on 01/13/24 14:21 UA Blood 0 Jarett/uL Last Edit by CANDY Duval on 01/13/24 14:21 UA Specific [place] 1.030 Last Edit by CANDY Duval on 01/13/24 14: 21 UA Ketone Positive Last Edit by CANDY Duval on 01/13/24 14:21 UA Bilirubin 1 mg/dL Last Edit by CANDY Duval on 01/13/24 14:21 UA Glucose 500 mg/dL Last Edit by CANDY Duval on 01/13/24 14:21 Results Reviewed Results Reviewed: Laboratory Last Values Urine pH (Auto) 6.0 01/13/24 14:20 Specific [place] (Auto) 1.030 01/13/24 14:20 Urine Protein (Auto) 15 mg/dL 01/13/24 14:20 Glucose (UA)(Auto) 500 mg/dL 01/13/24 14:20 Urine Ketones (Auto) Positive 01/13/24 14:20 Urine Blood (Auto) 0 Jarett/uL 01/13/24 14:20 Urine Nitrite (Auto) Negative 01/13/24 14:20 Urine Bilirubin (Auto) 1 mg/dL 01/13/24 14:20 Urine Urobilinogen (Auto) 0.2 mg/dL 01/13/24 14:20 Leukocyte Esterase (Auto) 15 Keri/uL 01/13/24 14:20 Assessment & Plan Assessment & Plan (1) BPH (benign prostatic hyperplasia): Code(s): N40.0 - Benign prostatic hyperplasia without lower urinary tract symptoms Category: Medical (2) Erectile dysfunction: Code(s): N52.9 - Male erectile dysfunction, unspecified Category: Medical Plan Start tadalafil 10 mg daily Two month follow-up labs Orders: Orders AMB Urinalysis Automated Today Z13.9 - Encounter for screening, unspecified Testosterone, Total 2 Months N52.9 - Male erectile dysfunction, unspecified Lutenizing Hormone 2 Months N52.9 - Male erectile dysfunction, unspecified Medications: New tadalafil 10 mg PO DAILY 90 days 90 tabs 0RF sexual activity N52.01 - Erectile dysfunction due to arterial insufficiency, N52.9 - Male erectile dysfunction, unspecified Refilled doxazosin 8 mg (2 x 4 mg) PO BEDTIME 90 days 180 tabs 1RF N13.8 - Other obstructive and reflux uropathy, N32.0 - Bladder-neck obstruction, N40.1 - Benign prostatic hyperplasia with lower urinary tract symptoms finasteride 5 mg PO DAILY 90 days 90 tabs 1RF N13.8 - Other obstructive and r eflux uropathy, N40.1 - Benign prostatic hyperplasia with lower urinary tract symptoms, R33.9 - Retention of urine, unspecified Patient Instructions: Imaging studies, laboratory and physical exam results were discussed and reviewed in detail. No major barriers to patient understanding were identified. An opportunity to ask questions regarding the treatment plan was provided. All questions were answered. The patient expressed understanding and agreement with the above treatment plan. The patient is aware they should contact our office by phone for worsening of their current condition or the appearance of new urologic symptoms. Compliance is encouraged with any medications and followup testing that is ordered. It is a privilege to participate in the urologic care of your patient. If you have any questions or concerns regarding treatment for the above conditions, or other urologic issues, please do not hesitate to contact me. The office telephone contact is [phone]. This note is constructed using voice recognition software. While every effort has been made to ensure accuracy tobacco sweeper errors may have been included. Yours sincerely, Dr Nigel Arboleda MD, [facility] - Urology Providers of Expert, Compassionate Care for the Genitourinary System Coding Level of Care Code Est Pt Level 4 (23546) Diagnoses BPH (benign prostatic hyperplasia) N40.0 Erectile dysfunction N52.9 CPT Codes Post Residual Void - PVR CPT Code: 46255-Ncwf Void Residual by ultrasound ([id number])
== END 2024-01-13 14:45 | disposition home or self-care (01) ==
PROVIDERS: Visit Provider Urology
DX: N40.0 Benign prostatic hyperplasia without lower urinary tract symptoms (principal); N52.9 Male erectile dysfunction, unspecified; Z13.9 Encounter for screening, unspecified
CPT/HCPCS: 99214

== ENCOUNTER → 2024-01-13 13:56 | Outpatient (BNVA) | payer MEDICAID, SELFPAY | PROVIDERS: Visit Provider Urology | DX: N40.1 Benign prostatic hyperplasia with lower urinary tract symptoms (principal); R33.8 Other retention of urine; N52.9 Male erectile dysfunction, unspecified; N13.8 Other obstructive and reflux uropathy; N32.0 Bladder-neck obstruction; R39.12 Poor urinary stream; E11.9 Type 2 diabetes mellitus without complications; Z79.4 Long term (current) use of insulin; Z79.899 Other long term (current) drug therapy | CPT/HCPCS: 51798; 81003; 99212 ==

== ENCOUNTER 2024-01-23 11:47 | Outpatient (AMB) | payer MEDICAID, SELFPAY ==
[2024-01-23 12:02] VITALS: BMI 25.8
--- NOTE | 2024-01-23 12:02 | MHC.OFFVIS ---
Vital Signs 01/23/24 12:02 Height 5 ft 8 in Weight 170 lb BMI 25.8 Intake Visit Reasons: OV- Left Knee OA - discuss inj Intake Note: Barrett is a 58 year old male who presents today for a follow up of his left knee OA. He was last seen in august where he was given a brace and held off on injections due to uncontrolled DM. Patient reports that he is having continued pain and would like to proceed with injection. Patient states that his last A1c was 5.36 Allergies No Known Allergies [No Known Allergies*] Allergy (Verified 01/23/24 12:04) HPI HPI OV- Left Knee OA - discuss inj: Details: Barrett is a 58 year old male who presents today for a follow up of his left knee OA. He was last seen in august where he was given a brace and held off on injections due to uncontrolled DM. Patient reports that he is having continued pain and would like to proceed with injection. Patient states that his last A1c was 5.36 PFSH Medical History Ischemic cardiomyopathy Atherosclerotic cardiovascular disease History of pancreatitis Hepatitis B Hepatitis C Chronic HFrEF (heart failure with reduced ejection fraction) Cardiomyopathy Type 2 diabetes mellitus with hyperglycemia, with long-term current use of insulin Type 2 diabetes mellitus with diabetic polyneuropathy Hyperlipidemia LDL goal <70 Essential hypertension Myocardial infarction Surgical History Hx of colonoscopy History of appendectomy Hx of heart artery stent H/O coronary artery bypass surgery H/O cardiac catheterization Family History Mother Diabetes Social History Household Members: Spouse Alcohol intake: never Patient Tobacco Use Status: Never used Tobacco Current occupational status: unemployed Physical Exam Vital Signs: BMI result Body Mass Index 25.8 Const General: cooperative, healthy appearing, no acute distress, well developed and alert HEENT Head: Yes normal to inspection, Yes normocephalic and Yes atraumatic Mouth: moist mucous membranes Eyes General: appearance normal, both eyes and all related structures EOM: EOMs intact bilaterally Chest Other: no audible wheezing. Resp Other: No audible wheezing Effort & Inspection: normal respiratory effort Back/Spine/Pelvis Cervical Spine: normal cervical lordosis Skin General skin exam: no rashes or lesions noted Neuro General: no focal motor deficits Extrem Other: Left knee with full range of motion and no effusion. He has tenderness to palpation under the lateral facet of the left patella that reproduces his primary complaint Psych Appearance: grossly normal and well kempt Mental Status: mental status grossly normal Speech and movement: Normal speech and movement present Affect: normal affect Attitude: cooperative Office Procedures Joint Injection/Aspiration Joint Injection/Aspiration Details: Injected 1 mL of Decadron and 3 mL 1% lidocaine and 3 mL of 0.25% Marcaine. Site was prepped using aseptic technique. Patient tolerated the procedure well. 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 (2) Arthritis of left knee: Code(s): M17.12 - Unilateral primary osteoarthritis, left knee Category: Medical Plan: This is a 58-year-old gentleman with left knee osteoarthritis. He was seen in the past but we will worried about blood sugar. At this time however his A1c is under 7 in his blood was sugars are well controlled. He is not a good surgical candidate and I injected his left knee. He can follow up in 3-4 months as needed. Coding Level of Care Code Est Pt Level 4 (03750) Diagnoses Type 2 diabetes mellitus with hyperglycemia, with long-term current use of insulin E11.65; Z79.4 Arthritis of left knee M17.12 CPT Codes Coding - Large joint: 64193 - Large joint ([id number])
== END 2024-01-23 12:27 | disposition home or self-care (01) ==
PROVIDERS: PCP Registered Nurse; Visit Provider Orthopaedic Surgery
DX: M17.12 Unilateral primary osteoarthritis, left knee (principal); E11.65 Type 2 diabetes mellitus with hyperglycemia; Z79.4 Long term (current) use of insulin
CPT/HCPCS: 20610; 99214

== ENCOUNTER → 2024-01-23 11:47 | Outpatient (BNVA) | payer MEDICAID, SELFPAY | PROVIDERS: PCP Registered Nurse; Visit Provider Orthopaedic Surgery | DX: M17.12 Unilateral primary osteoarthritis, left knee (principal); E11.65 Type 2 diabetes mellitus with hyperglycemia; Z79.4 Long term (current) use of insulin | CPT/HCPCS: 20610; 99212; J0665; J1100; J2003 ==

== ENCOUNTER 2024-02-12 18:10 | Emergency (ER) | payer MEDICAID, SELFPAY ==
--- NOTE | ~2024-02-12 | XR_ITS ---
EXAMINATION: XR CHEST CLINICAL INFORMATION: Chest pain COMPARISON: Chest x-ray on 08/08/2023 TECHNIQUE: 2 views of the chest were obtained. FINDINGS: No significant abnormality is noted involving the heart, lungs, mediastinum, bony thorax or soft tissues. XR/XR chest 2V IMPRESSION: Unremarkable examination. Electronically signed by: Shama Yeager MD 02/12/2024 07:07 PM EDT RP
--- NOTE | 2024-02-12 18:19 | ECG_ITS ---
Test Reason : chest pain Blood Pressure : / mmHG Vent. Rate : 068 BPM Atrial Rate : 068 BPM P-R Int : 156 ms QRS Dur : 134 ms QT Int : 422 ms P-R-T Axes : 059 268 045 degrees QTc Int : 448 ms Normal sinus rhythm Right bundle branch block Inferior infarct (cited on or before 10-JUN-2023) Abnormal ECG When compared with ECG of 08-AUG-2023 23:07, No significant change was found Referred By: Generic ED Physician Electronically Signed By:STEPHANIE OLIVO
[2024-02-12 18:24] VITALS: BP 110/55; PULSE 83; O2SAT 97
[2024-02-12 18:29] VITALS: BP 116/82; PULSE 74; RESP 18; TEMP 36.7; O2SAT 97; BMI 26.1
--- NOTE | 2024-02-12 18:52 | ED_ITS ---
HPI - Chest Pain General Chief Complaint: Chest Pain Stated Complaint: chest pain Time Seen by Provider: 02/12/24 18:34 Source: patient Mode of arrival: EMS Limitations: language barrier ([place]-speaking iron caster utilized) History of Present Illness HPI narrative: Patient is a 50-year-old male presents emergency department via EMS for evaluation of chest pain with onset 1 hour prior to arrival localized substernal region described as a tightness with mild nausea. He reports that he was calm and relaxed while driving when the onset was sudden. Once getting home he felt as though his pain was worsening. He reports minimal relief after 3 sublingual nitro at home. He also states that after started he noticed pain diffusely across his lower back. He denies any symptoms. Reports a history of having cardiac stents and bypass as well as diabetes. Denies dizziness, lightheadedness, headache, neck pain, shortness of breath, vomiting Related Data Home Medications ?Medication ?Instructions ?Recorded ?Confirmed atorvastatin 80 mg tablet 80 mg PO DAILY 04/11/20 01/13/24 carvedilol 3.125 mg tablet 3.125 mg PO BID 04/11/20 01/13/24 clopidogrel 75 mg tablet 75 mg PO DAILY 04/11/20 01/13/24 ezetimibe 10 mg tablet (Zetia) 10 mg PO DAILY 04/11/20 01/13/24 gabapentin 800 mg tablet 800 mg PO BID 04/11/20 01/13/24 isosorbide mononitrate 60 mg 60 mg PO DAILY 04/11/20 01/13/24 tablet,extended release 24 hr lisinopril 2.5 mg tablet 2.5 mg PO DAILY 04/11/20 01/13/24 melatonin 5 mg capsule See Rx Instructions PO ONCE 04/11/20 01/13/24 ammonium lactate 12 % topical cream 1 appl topical BID 07/11/21 01/13/24 fluticasone propionate 50 1 - 2 spray intranasal DAILY PRN 01/17/22 01/13/24 mcg/actuation nasal congestion spray,suspension naproxen 500 mg tablet 500 mg PO moderate pain 06/13/22 01/13/24 tizanidine 4 mg tablet 4 mg PO TID 06/13/22 01/13/24 aspirin 81 mg chewable tablet 81 mg PO QAM 07/25/22 01/13/24 pregabalin 100 mg capsule 100 mg PO ONCE 07/25/22 01/13/24 Previous Rx's ?Medication ?Instructions ?Recorded magnesium citrate 300 ml PO DAILY PRN constipation 02/28/20 #296 mL blood sugar diagnostic (FreeStyle 1 strip miscellaneous QID PRN for 09/19/20 Lite Strips) diabetes mellitus #150 strips blood-glucose meter (FreeStyle 1 ea miscellaneous DIRECTED #1 09/26/20 [place] Lite kit) kit lancets 33 gauge (TRUEplus Lancets) 1 gauge miscellaneous QID for 10/12/20 diabetes mellitus #100 ea flash glucose scanning reader #1 ea 01/01/21 (FreeStyle Alfredo 2 [place]) flash glucose sensor (FreeStyle #2 ea 01/01/21 Alfredo 2 Sensor kit) dicyclomine 20 mg tablet 20 mg PO QID PRN abdominal pain 02/06/21 #20 tabs insulin glargine 100 unit/mL (3 30 unit (0.3 mL) subcut DAILY #15 08/06/21 mL) subcutaneous pen (Lantus mL Solostar U-100 Insulin) metformin 500 mg tablet 1,000 mg (2 x 500 mg) PO BID 30 12/12/21 days #120 tabs pen needle, diabetic 32 gauge x See Rx Instructions .Route 01/31/2232 (Pentips) .COMPLEX #200 ea diclofenac sodium 1 % topical gel 2 g topical QID 30 days #100 grams 02/27/22 insulin aspart U-100 100 unit/mL See Rx Instructions subcut QID #30 03/27/22 (3 mL) subcutaneous pen (Novolog mL FlexPen U-100 Insulin aspart) hydrocortisone 2.5 % topical cream 1 appl [place] BID PRN hemorrhoids #30 06/13/22 with perineal applicator grams (Proctozone-HC) polyethylene glycol 3350 17 17 g PO DAILY 30 days #510 grams 09/16/22 gram/dose oral powder (Miralax) nitroglycerin 0.4 mg sublingual 0.4 mg sublingual Q5M PRN angina 10/03/22 tablet pectoris #30 tabs ketorolac 10 mg tablet 10 mg PO Q6H PRN pain 5 days #20 02/23/23 tabs hydrocodone 5 mg-acetaminophen 325 1 tab PO Q6H PRN pain #10 tabs 06/10/23 mg tablet lidocaine 5 % topical patch 1 patch topical DAILY #30 ea 06/10/23 docusate sodium 100 mg capsule 200 mg (2 x 100 mg) PO BEDTIME #60 07/02/23 caps acetaminophen 325 mg capsule 325 mg PO Q4H PRN pain #30 caps 07/14/23 (Tylenol) lidocaine 5 % topical patch 1 patch topical DAILY PRN pain #15 07/14/23 ea ranolazine 500 mg tablet,extended 500 mg PO BID #180 tabs 07/30/23 release,12 hr methylcellulose (laxative) 500 mg 500 mg PO TID #90 tabs 10/30/23 tablet (Fiber Laxative (methylcellulose)) furosemide 20 mg tablet (Lasix) 20 mg PO DAILY 90 days #90 tabs 12/24/23 potassium citrate 10 mEq (1,080 20 meq (2 x 10 mEq (1,080 mg)) PO 12/24/23 mg) tablet,extended release BID 90 days #360 tabs doxazosin 4 mg tablet 8 mg (2 x 4 mg) PO BEDTIME 90 days 01/13/24 #180 tabs finasteride 5 mg tablet 5 mg PO DAILY 90 days #90 tabs 01/13/24 tadalafil 10 mg tablet 10 mg PO DAILY sexual activity 90 01/13/24 days #90 tabs Allergies Allergy/AdvReac Type Severity Reaction Status Date / Time No Known Allergies Allergy Verified 02/12/24 18:33 [No Known Allergies*] Review of Systems 2 Review of Systems: Yes all other systems are reviewed and are negative PMFSH Past Medical History Attestation statement: The following information was validated with the patient. Source: old records reviewed Medical History Ischemic cardiomyopathy Atherosclerotic cardiovascular disease History of pancreatitis Hepatitis B Hepatitis C Chronic HFrEF (heart failure with reduced ejection fraction) Cardiomyopathy Type 2 diabetes mellitus with hyperglycemia, with long-term current use of insulin Type 2 diabetes mellitus with diabetic polyneuropathy Hyperlipidemia LDL goal <70 Essential hypertension Myocardial infarction Surgical History Hx of colonoscopy History of appendectomy Hx of heart artery stent H/O coronary artery bypass surgery H/O cardiac catheterization Family History Family History Mother Diabetes Social History Social History Household Members: Spouse Alcohol intake: never Patient Tobacco Use Status: Never used Tobacco Smoked in Last 30 Days: No Use of substances other than those prescribed or required for medical reasons: No Advance Directives: No Advance Directives Information Provided: Yes Current occupational status: unemployed Physical Exam 2 Vital Signs: Vital Signs: Last Vital Signs Temp 98.0 F 02/12/24 18:29 Pulse 69 02/12/24 22:30 Resp 97 H 02/12/24 22:30 BP 116/82 02/12/24 18:29 Pulse Ox 97 02/12/24 22:30 O2 Del Method Room Air 02/12/24 22:30 BMI result Body Mass Index 26.1 Appearance: Alert.?Oriented to person, place and time. Appears anxious Eyes: Pupils equal, round and reactive to light.? ENT: Pharynx normal.?? Neck: Normal inspection.? Neck supple.?? CVS: Heart sounds normal. Normal heart rate and rhythm.? Pulses normal.?? Respiratory: No respiratory distress.? Lung sounds clear to auscultation bilaterally?? Abdomen: Soft and non-tender. Normoactive bowel sounds. No pulsatile mass.?? Skin: Skin warm and dry.? Normal skin color.? Extremities: No lower extremity edema.? No calf ttp? Neuro: Moves all extremities spontaneously. Sensation intact bilaterally.No focal neuro deficits. Ambulates with normal steady gait. Course Reevaluation(s) Reevaluation #1: High sensitive troponin is within normal range x2, no acute changes on EKG when compared to prior in July of 2023. He endorses resolution of pain at this time. He ambulated to the bathroom with steady gait no difficulty. No return of pain. At this time and feels stable for discharge home. Discussed outpatient follow-up with PCP/cardiology and worrisome signs and symptoms that would warrant re-evaluation in the emergency department. Medications Administered Discontinued Medications Generic Name Dose Route Start Last Admin Trade Name Freq PRN Reason Stop Dose Admin Morphine Sulfate 1 mg 02/12/24 19:29 02/12/24 20:24 Morphine Sulfate 2 Mg/Ml Cartridge IVPUSH 02/12/24 19:30 1 mg ONCE ONE Administration Protocol Medical Decision Making Medical Decision Making [facility] Narrative: Patient is a 58-year-old male with past medical history BPH, tired arthritis, chronic pain, renal colic, chest pain, ischemic cardiomyopathy, heart failure with reduced ejection fraction, DM, CAD, hypertension, hyperlipidemia who presents emergency department for evaluation of chest pain with sudden onset while at rest as per HPI. He has tried nitro with out much improvement, he is on aspirin and Plavix. Plan to trial management at this time with a single dose of morphine. Will obtain CBC to evaluate for leukocytosis/ anemia, CMP and lipase to evaluate for abnormal electrolytes /abnormal renal function/ abnormal hepatic/biliary function, EKG and troponin to evaluate for ischemia/ACS. Chest x-ray to evaluate for consolidation/ infiltrate/ mass/ pulmonary congestion and viral serologies. Differential Diagnosis Differential Diagnoses: The differential diagnosis associated with the presentation includes (ACS, STEMI, NSTEMI, anxiety, anxiety, stress reaction) Admission/Observation Consideration of admission/observation: Escalation of care including admission/observation considered Lab Data [facility] Lab Attestation statement: I reviewed the patient's lab results. CBC is without leukocytosis, has a mild normocytic anemia that does not meet transfusion criteria, mild thrombocytopenia. No significant electrolyte derangement. No HAZEL. Non-anion gap hyperglycemia with random glucose of 234. Chronically elevated T bilirubin without significant elevation remainder of LFTs. Lipase within normal range. BNP within normal range. High sensitive troponin within normal range. 02/12/24 19:26 02/12/24 19:26 Labs: Lab Results 02/12/24 02/12/24 Range/Units 19:26 21:36 WBC 6.2 (4.8-10.8) X10*3/uL RBC 4.33 L (4.60-5.80) X10*6/uL Hgb 13.6 L (14.0-18.0) g/dl Hct 39.6 L (42.0-52.0) % MCV 91.5 (80.0-98.0) fL MCH 31.4 (27.0-33.0) pg MCHC 34.3 (31.0-36.0) g/dl RDW 12.2 (11.0-16.0) % Plt Count 147 L (160-400) X10*3/uL MPV 10.8 (9.4-12.4) fL Immature Gran % (Auto) 0.2 (0.0-0.4) % Neut % (Auto) 62.1 (45-73) % Lymph % (Auto) 25.4 (20-40) % [place] % (Auto) 8.7 (2-11) % Eos % (Auto) 3.1 (0-4) % Baso % (Auto) 0.5 (0-2) % Lymph # (Auto) 1.6 (1.2-4.9) X10*3/uL [place] # (Auto) 0.5 (0.1-1.2) X10*3/uL Eos # (Auto) 0.2 (0.0-0.4) X10*3/uL Baso # (Auto) 0.0 (0.0-0.2) X10*3/uL Abs Immat Gran (auto) 0.01 (0.00-0.03) X10*3/uL Absolute Neuts (auto) 3.9 (2.0-8.3) x10*3/uL Absolute Nucleated RBC 0.000 (0.0-0.012) X10*3/uL Nucleated RBC % (auto) 0.0 (0.0-0.2) /100WBC PT 10.4 L (10.9-12.4) SEC INR 0.9 (0.9-1.1) Sodium 140 (135-145) mmol/L Potassium 3.9 (3.3-5.1) mmol/L Chloride 110 H (96-108) mmol/L Carbon Dioxide 21 L (22-29) mmol/L Anion Gap 13 (12-20) BUN 28 H (9-16) mg/dL Creatinine 1.27 (0.5-1.4) mg/dL Estim Creat Clear Calc 61.3 Estimated GFR 58 Random Glucose 234 H (60-115) mg/dL Calcium 8.6 (8.4-10.2) mg/dL Magnesium 1.8 (1.6-2.6) mg/dL Total Bilirubin 1.6 H (0.0-1.0) mg/dL AST 28 (5-37) U/L ALT 26 (0-40) U/L Alkaline Phosphatase 127 H (39-117) U/L Troponin I High Sens 5.1 3.6 (<3.5-35.0) ng/L B-Natriuretic Peptide 69 (<100) pg/mL Total Protein 6.1 L (6.5-8.0) g/dL Albumin 3.8 (3.5-5.0) g/dL Lipase 22 (8-78) U/L Influenza Type A (PCR) NEGATIVE (Negative) Influenza Type B (PCR) NEGATIVE (Negative) RSV RNA Qual (PCR) NEGATIVE (Negative) SARS-CoV-2 RNA (RT-PCR) NEGATIVE (Negative) Independent Interpretation I performed an independent interpretation of an: EKG and Plain X-Ray (No consolidation or infiltrate) Interpretation: Rate: 68 Rhythm:? Normal sinus rhythm, RBBB Normal P waves.? Normal PRISCILLA.?? Normal QRS complex.?? ST T wave :??No ST elevation, no ST depression qTC:448 prior studies:? July of 2023 The study has been interpreted contemporaneously by me. Radiology Impression Discussion of test interpretation with radiology: I have reviewed the radiologist's reading. Radiologist Impression: FINDINGS: No significant abnormality is noted involving the heart, lungs, mediastinum, bony thorax or soft tissues. XR/XR chest 2V IMPRESSION: Unremarkable examination. Independent Historian Clinical information obtained from an independent historian. History obtained from or confirmed by: Spouse and EMS External Record Review External record reviewed: Inpatient record and Outpatient record Chronic Conditions Patient?s care impacted by: Other (See narrative above) Discharge Plan Discharge Clinical Impression: Chest pain Patient Disposition: Home, Self-Care Instructions: Chest Pain (ED) Additional Instructions: Continue taking all of your medications as prescribed. 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 Return to emergency department any new or worsening symptoms or concerns. Prescriptions: No Action blood sugar diagnostic [FreeStyle Lite Strips] Strip 1 strip miscellaneous QID PRN (Reason: for diabetes mellitus) Qty: 150 11RF blood-glucose meter [FreeStyle [place] Lite] Kit 1 ea miscellaneous DIRECTED Qty: 1 0RF lancets [TRUEplus Lancets] 33 gauge misc 1 gauge miscellaneous QID Qty: 100 11RF metformin 500 mg tablet 1,000 mg PO BID 30 Days Qty: 120 4RF pen needle, diabetic [Pentips] 32 gauge x 5/32 needle See Rx Instructions .ROUTE .COMPLEX Qty: 200 2RF Dose Instruction: USE SIX TIMES DAILY DIRECTED Rx Instructions: USE SIX TIMES DAILY DIRECTED insulin aspart U-100 [Novolog FlexPen U-100 Insulin] 100 unit/mL (3 mL) insulin pen See Rx Instructions subcut QID Qty: 30 0RF Rx Instructions: 6-8 units with meals, 2 units with snack subcut 4 times a day; nitroglycerin 0.4 mg tablet, sublingual 0.4 mg sublingual Q5M PRN (Reason: angina pectoris) Qty: 30 3RF Rx Instructions: do not exceed 3 doses per episode docusate sodium 100 mg capsule 200 mg PO BEDTIME Qty: 60 5RF ranolazine 500 mg tablet extended release 12 hr 500 mg PO BID Qty: 180 3RF Fiber Laxative(methylcellulos) 500 mg tablet 500 mg PO TID Qty: 90 5RF potassium citrate 10 mEq (1,080 mg) tablet extended release 20 meq PO BID 90 Days Qty: 360 1RF furosemide [Lasix] 20 mg tablet 20 mg PO DAILY 90 Days Qty: 90 3RF magnesium citrate Solution 300 ml PO DAILY PRN (Reason: constipation) Qty: 296 0RF dicyclomine 20 mg tablet 20 mg PO QID PRN (Reason: abdominal pain) Qty: 20 0RF ketorolac 10 mg tablet 10 mg PO Q6H PRN (Reason: pain) 5 Days Qty: 20 0RF Rx Instructions: Patient received Toradol in the emergency room hydrocodone-acetaminophen 5-325 mg tablet 1 tab PO Q6H PRN (Reason: pain) Qty: 10 0RF Rx Instructions: partial fill okay; Partial Fill upon patient request. lidocaine 5 % adhesive patch,medicated 1 patch topical DAILY Qty: 30 0RF Rx Instructions: leave on most painful area for up to 12 hrs lidocaine 5 % adhesive patch,medicated 1 patch topical DAILY PRN (Reason: pain) Qty: 15 0RF Rx Instructions: leave on most painful area for up to 12 hrs acetaminophen [Tylenol] 325 mg capsule 325 mg PO Q4H PRN (Reason: pain) Qty: 30 0RF clopidogrel 75 mg tablet 75 mg PO DAILY carvedilol 3.125 mg tablet 3.125 mg PO BID Rx Instructions: must administer with a meal/food lisinopril 2.5 mg tablet 2.5 mg PO DAILY isosorbide mononitrate 60 mg tablet extended release 24 hr 60 mg PO DAILY atorvastatin 80 mg tablet 80 mg PO DAILY melatonin 5 mg capsule See Rx Instructions PO ONCE Rx Instructions: 5 mg (2 tab) PO once; gabapentin 800 mg tablet 800 mg PO BID ezetimibe [Zetia] 10 mg tablet 10 mg PO DAILY (DME) FreeStyle Alfredo 2 [place] Misc See Rx Instructions .ROUTE .MEDSUPPLY Qty: 1 0RF Rx Instructions: As directed (DME) FreeStyle Alfredo 2 Sensor Kit See Rx Instructions .ROUTE .MEDSUPPLY Qty: 2 11RF Rx Instructions: As directed every 2 weeks ammonium lactate 12 % cream 1 appl topical BID Lantus Solostar U-100 Insulin 100 unit/mL (3 mL) insulin pen 30 unit subcut DAILY Qty: 15 4RF fluticasone propionate 50 mcg/actuation spray,suspension 1 - 2 spray intranasal DAILY PRN (Reason: congestion) aspirin 81 mg tablet,chewable 81 mg PO QAM diclofenac sodium 1 % gel 2 g topical QID 30 Days Qty: 100 8RF Rx Instructions: apply to hand; for hand includes palm/fingers/back of hand pregabalin 100 mg capsule 100 mg PO ONCE naproxen 500 mg tablet 500 mg PO tizanidine 4 mg tablet 4 mg PO TID hydrocortisone [Proctozone-HC] 2.5 % cream with perineal applicator 1 appl [place] BID PRN (Reason: hemorrhoids) Qty: 30 3RF Rx Instructions: apply [place] BID prn polyethylene glycol 3350 [Miralax] 17 gram/dose powder 17 g PO DAILY 30 Days Qty: 510 6RF doxazosin 4 mg tablet 8 mg PO BEDTIME 90 Days Qty: 180 1RF finasteride 5 mg tablet 5 mg PO DAILY 90 Days Qty: 90 1RF tadalafil 10 mg tablet 10 mg PO DAILY 90 Days Qty: 90 0RF Referrals: [facility] [Primary Care Provider] - Print Language: [place]
--- NOTE | 2024-02-12 19:07 | PC.NURSE ---
report received from Ayesha Mccartney RN, assume care of pt at this time
[2024-02-12 19:30] LABS: MANUAL DIFF FLAG NO
[2024-02-12 19:35] LABS: Basophils Percent Auto 0.5 % (0-2); Eosinophils Absolute Auto 0.2 X10*3/uL (0.0-0.4); Eosinophils Percent Auto 3.1 % (0-4); Hematocrit 39.6 % (42.0-52.0); Hemoglobin 13.6 g/dl (14.0-18.0); Imm Gran Abs Auto 0.01 X10*3/uL (0.00-0.03); Imm Gran Pct Auto 0.2 % (0.0-0.4); Lymphocytes Absolute Auto 1.6 X10*3/uL (1.2-4.9); Lymphocytes Percent Auto 25.4 % (20-40); Mean Corpuscular HGB Conc 34.3 g/dl (31.0-36.0); Mean Corpuscular Hemoglobin 31.4 pg (27.0-33.0); Mean Corpuscular Volume 91.5 fL (80.0-98.0); Mean Platelet Volume 10.8 fL (9.4-12.4); Monocytes Absolute Auto 0.5 X10*3/uL (0.1-1.2); Monocytes Percent Auto 8.7 % (2-11); Neutrophils Absolute Auto 3.9 x10*3/uL (2.0-8.3); Neutrophils Percent Auto 62.1 % (45-73); Platelet Count 147 X10*3/uL (160-400); Red Blood Count 4.33 X10*6/uL (4.60-5.80); Red Cell Distribution Width 12.2 % (11.0-16.0); White Blood Count 6.2 X10*3/uL (4.8-10.8)
[2024-02-12 19:45] LABS: Alanine Aminotransferase 26 U/L (0-40); Albumin Level 3.8 g/dL (3.5-5.0); Alkaline Phosphatase 127 U/L (39-117); Anion Gap 13 (12-20); Aspartate Amino Transferase 28 U/L (5-37); Bilirubin Total 1.6 mg/dL (0.0-1.0); Blood Urea Nitrogen 28 mg/dL (9-16); Calcium 8.6 mg/dL (8.4-10.2); Carbon Dioxide 21 mmol/L (22-29); Chloride 110 mmol/L (96-108); Creatinine Clr Calc Pharmacy 61.3; Estimated Glomerular Filt Rate 58; Glucose Random 234 mg/dL (60-115); Lipase 22 U/L (8-78); Magnesium 1.8 mg/dL (1.6-2.6); Potassium 3.9 mmol/L (3.3-5.1); Sodium 140 mmol/L (135-145); Total Protein 6.1 g/dL (6.5-8.0)
[2024-02-12 19:48] LABS: INTERNATIONAL NORM RATIO 0.9 (0.9-1.1); Prothrombin Time 10.4 SEC (10.9-12.4)
[2024-02-12 19:51] LABS: B Type Natriuretic Peptide 69 pg/mL (<100)
[2024-02-12 19:53] LABS: Troponin-I High Sensitivity 5.1 ng/L (<3.5-35.0)
[2024-02-12] MEDS: Morphine Sulfate 2 MG/ML CARTRIDGE 1 MG IVPUSH (20:24)
[2024-02-12 20:25] LABS: Influenza A PCR NEGATIVE (Negative); Influenza B PCR NEGATIVE (Negative); Resp Syncy Virus RNA Qual PCR NEGATIVE (Negative); SARS COV2 PCR INHOUSE NEGATIVE (Negative)
[2024-02-12 21:59] LABS: Troponin-I High Sensitivity 3.6 ng/L (<3.5-35.0)
[2024-02-12 22:30] VITALS: BP 108/62; PULSE 69; RESP 16; O2SAT 97
[2024-02-12 23:13] VITALS: BP 108/62; PULSE 69; RESP 16; TEMP 36.7; O2SAT 97
== END 2024-02-12 23:16 | disposition home or self-care (01) ==
PROVIDERS: Nurse Practitioner Family; Emergency Provider Emergency Medicine
DX: R07.89 Other chest pain (principal); M54.50 Low back pain, unspecified; E11.65 Type 2 diabetes mellitus with hyperglycemia; I11.0 Hypertensive heart disease with heart failure; I50.22 Chronic systolic (congestive) heart failure; E78.5 Hyperlipidemia, unspecified; G89.4 Chronic pain syndrome; Z79.4 Long term (current) use of insulin; Z79.84 Long term (current) use of oral hypoglycemic drugs; Z03.818 Encounter for observation for suspected exposure to other biological agents ruled out; Z79.02 Long term (current) use of antithrombotics/antiplatelets; Z79.899 Other long term (current) drug therapy; Z79.82 Long term (current) use of aspirin
CPT/HCPCS: 0241U; 36415; 71046; 80053; 83690; 83735; 83880; 84484; 85025; 85610; 93005; 96374; 99284; 99285; J2270

== ENCOUNTER → 2024-02-12 18:19 | Outpatient (BNV) | payer MEDICAID, SELFPAY | PROVIDERS: Emergency Provider Emergency Medicine; Visit Provider Internal Medicine | DX: R07.9 Chest pain, unspecified (principal); I45.10 Unspecified right bundle-branch block; R94.31 Abnormal electrocardiogram [ECG] [EKG] | CPT/HCPCS: 93010 ==

== ENCOUNTER 2024-02-28 09:13 | Outpatient (REF) | payer MEDICAID, SELFPAY ==
--- NOTE | ~2024-02-28 | MR_ITS ---
EXAMINATION: MR LOWER EXTREMITY WITHOUT CONTRAST, LEFT CLINICAL INFORMATION: Generalized pain left lower extremity. COMPARISON: None available. TECHNIQUE: MRI of the left lower leg was performed without contrast on a high-field MRI scanner. FINDINGS: SUBCUTANEOUS SOFT TISSUES: Normal. MUSCLES/TENDONS: Normal. NEUROVASCULAR STRUCTURES: Normal. OSSEOUS STRUCTURES: Normal. MR/MR lower leg LT wo con IMPRESSION: Normal MRI of the left lower extremity. Electronically signed by: Navdeep Diez MD 03/11/2024 09:14 AM [facility]
== END 2024-02-28 09:14 | disposition home or self-care (01) ==
LOC: HO.MRI 09:13
PROVIDERS: PCP Registered Nurse; Visit Provider Registered Nurse
DX: M54.50 Low back pain, unspecified (principal); G89.29 Other chronic pain
CPT/HCPCS: 72148; 73718

== ENCOUNTER 2024-03-04 11:59 | Emergency (ER) | payer MEDICAID, SELFPAY ==
--- NOTE | ~2024-03-04 | XR_ITS ---
EXAMINATION: XR SHOULDER, LEFT CLINICAL INFORMATION: pain s/p fall COMPARISON: X-ray dated April 17, 2018 TECHNIQUE: AP external rotation, Grashey, scapular Y, and axillary views of the left shoulder. FINDINGS: No acute cortical disruption or malalignment. No lytic or blastic lesions. Sternal wires and vascular clips in the mediastinal and likely CABG procedure. XR/XR shoulder LT min 2V IMPRESSION: No acute fracture or dislocation. Electronically signed by: Kane Moncada MD 03/04/2024 03:38 PM EST RP
--- NOTE | ~2024-03-04 | XR_ITS ---
EXAMINATION: XR CLAVICLE, LEFT CLINICAL INFORMATION: fall, pain COMPARISON: None available. TECHNIQUE: AP views of the left clavicle. FINDINGS: No acute cortical disruption. No lytic or blastic lesions. No gross malalignment at the acromioclavicular joint. Sternal wires. XR/XR clavicle LT IMPRESSION: No acute fracture, left clavicle. Electronically signed by: Kane Moncada MD 03/04/2024 03:35 PM EST
--- NOTE | ~2024-03-04 | XR_ITS ---
EXAMINATION: XR ELBOW, LEFT CLINICAL INFORMATION: fall COMPARISON: None available. TECHNIQUE: AP, lateral, and oblique views of the left elbow. FINDINGS: No acute cortical disruption or malalignment. No gross joint effusion. Small exostosis at the olecranon/triceps tendon insertion. No lytic or blastic lesions. 4 mm well-corticated calcification inferior to the medial epicondyle of the humerus probable prior trauma. XR/XR elbow LT min 3V IMPRESSION: No acute fracture or dislocation. Enthesopathy, triceps tendon. Electronically signed by: Kane Moncada MD 03/04/2024 03:37 PM EST
--- NOTE | ~2024-03-04 | XR_ITS ---
EXAMINATION: XR KNEE, LEFT CLINICAL INFORMATION: pain, fall COMPARISON: August 28, 2023 TECHNIQUE: Four views of the left knee. FINDINGS: No acute cortical disruption or malalignment. No suprapatellar bursa joint effusion. Asymmetric joint space narrowing involving the medial compartment. Exostosis at the quadriceps tendon insertion and the patella tendon insertion. Focal well-corticated calcification in the inferior patella tendon near the anterior tibial tuberosity. Multiple vascular clips in the medial aspect of the left lower extremity. Vascular calcifications. No lytic or blastic lesions. XR/XR knee LT 3V IMPRESSION: No acute fracture or dislocation. Electronically signed by: Kane Moncada MD 03/04/2024 03:42 PM EST
--- NOTE | ~2024-03-04 | CT_ITS ---
EXAMINATION: CT HEAD WITHOUT CONTRAST CLINICAL INFORMATION: fall, +head strike COMPARISON: CT dated July 14, 2023. TECHNIQUE: Contiguous axial imaging was performed from the skull base to vertex without intravenous administration of contrast. This CT examination was performed using dose optimization techniques as appropriate, variously including the following: *Automated exposure control *Adjustment of mA and/or kV according to patient size (this includes techniques or standardized protocols for targeted exams where dose is matched to indication/reason for exam; i.e. extremities or head) *Use of iterative reconstruction technique DLP: 659 mGy-cm FINDINGS: Soft tissue contusion, superior left parietal. Bony calvarium is intact. Skull base is intact. Old traumatic deformity, nasal bones and likely left lamina papyracea. No acute intracranial hemorrhage, mass effect, midline shift, hydrocephalus or herniation. Fernández-white matter differentiation is normal. Posterior cranial fossa contents demonstrated no acute intracranial hemorrhage or mass effect. Sellar/suprasellar region demonstrated no gross hemorrhage or mass. Craniocervical junction is intact. Calcified plaques in the cavernous supracavernous segments both ICAs. No air-fluid levels in the included paranasal sinuses. Retention cysts versus polyp, right maxillary sinus. Mucosal thickening, ethmoid air cells and right maxillary sinus. Tympanic cavities and mastoid cells are aerated. CT/CT head/brain wo IV con IMPRESSION: Soft tissue contusion/hematoma left parietal. No acute fracture or bony calvarium. No acute intracranial hemorrhage. Acute on chronic right maxillary sinus disease. Electronically signed by: Kane Moncada MD 03/04/2024 02:52 PM [facility]
--- NOTE | ~2024-03-04 | CT_ITS ---
EXAMINATION: CT CERVICAL SPINE WITHOUT CONTRAST CLINICAL INFORMATION: Status post fall. COMPARISON: CT dated July 14, 2023. TECHNIQUE: Contiguous axial images through the cervical spine using 0.6 and 3.0 mm collimation with bone and soft tissue algorithm. Sagittal and coronal reformatted images acquired. This CT examination was performed using dose optimization techniques as appropriate, variously including the following: *Automated exposure control *Adjustment of mA and/or kV according to patient size (this includes techniques or standardized protocols for targeted exams where dose is matched to indication/reason for exam; i.e. extremities or head) *Use of iterative reconstruction technique DLP: 531 mGy-cm FINDINGS: Craniocervical junction is intact. Incomplete ankylosis of the occipital condyles to the lateral masses of C1. C1 is intact. C2 is intact. C3 is intact. C4 is intact. C5 is intact. C6 is intact. C7 is intact. Marginal osteophyte formation, subchondral cyst formation and endplate sclerosis and decreased intervertebral disc height with vacuum phenomenon and C5-C6 and to a lesser extent C6-7. Grade 1 anterolisthesis C4-5 on a degenerative basis. Facet joint hypertrophy at C4-5, C5-C6 and C6-7 levels. No gross prevertebral compartment hematoma. Vascular calcifications of the cardiac arteries. Tympanic cavities and mastoid cells are aerated. CT/CT cervical spine wo IV con IMPRESSION: Multilevel cervical spondylosis without acute fracture or trauma-related listhesis. Fleischner guidelines were followed. Electronically signed by: Kane Moncada MD 03/04/2024 02:46 PM [facility]
[2024-03-04 12:18] VITALS: BP 111/67; BP 147/72; PULSE 74; PULSE 80; RESP 18; TEMP 37.2; O2SAT 96; O2SAT 97; BMI 25.5
[2024-03-04 12:28] VITALS: BP 109/71; PULSE 80; RESP 20; TEMP 36.5; O2SAT 98
[2024-03-04 14:38] VITALS: BP 116/70; PULSE 80; RESP 16; TEMP 36.5; O2SAT 98
[2024-03-04] MEDS: Acetaminophen 325 MG TABLET 975 MG PO (14:55)
--- NOTE | 2024-03-04 16:22 | ED_ITS ---
HPI - Fall General Chief Complaint: Fall Stated Complaint: FALL, PAIN IN L KNEE PER EMS Time Seen by Provider: 03/04/24 12:16 Source: patient and RN notes reviewed Mode of arrival: ambulatory Limitations: no limitations History of Present Illness ED Provider: Jennifer Coleman PA-C HPI Narrative: This is a [id number]-male, with a hx of type 2 diabetes, HLD, cardiomyopathy on plavix, HTN, who presents to the ER with complaints of left knee pain, left arm pain and head pain s/p mechanical fall which occurred today. Pt states that this morning, his shoes were wet from the rain and he was walking into his apartment and slipped on the metal threshold in between the doorway and fell onto his left side. He states that he struck the left side of his head on the ground. Denies LOC. He reports mild headache, left sided neck pain, left shoulder pain, and left knee pain. He was able to get up off the ground without assistance. Per EMS, pt walked to the ambulance prior to his arrival. He has been ambulatory with steady gait in the ED. Pain in left shoulder worsens with movement and palpation. Pain in left knee worsens with weight bearing. Denies any dizziness, blurred vision, chest pain, shortness of breath, abdominal pain, nausea, vomiting or diarrhea. Denies taking any medications prior to arrival. No other complaints or concerns at this time. MD complaint: fall Onset (ago): hour(s) Fall from: standing Fall witnessed: no Place fall occurred: home Loss of consciousness: none Prolonged down time: no Symptoms prior to fall: none Context: tripped/slipped Location of injury: head and neck Location of injury - extremities: left: shoulder and knee Severity: moderate Quality: aching Associated symptoms (after fall): headache and neck pain Related Data Home Medications ?Medication ?Instructions ?Recorded ?Confirmed atorvastatin 80 mg tablet 80 mg PO DAILY 04/11/20 01/13/24 carvedilol 3.125 mg tablet 3.125 mg PO BID 04/11/20 01/13/24 clopidogrel 75 mg tablet 75 mg PO DAILY 04/11/20 01/13/24 ezetimibe 10 mg tablet (Zetia) 10 mg PO DAILY 04/11/20 01/13/24 gabapentin 800 mg tablet 800 mg PO BID 04/11/20 01/13/24 isosorbide mononitrate 60 mg 60 mg PO DAILY 04/11/20 01/13/24 tablet,extended release 24 hr lisinopril 2.5 mg tablet 2.5 mg PO DAILY 04/11/20 01/13/24 melatonin 5 mg capsule See Rx Instructions PO ONCE 04/11/20 01/13/24 ammonium lactate 12 % topical cream 1 appl topical BID 07/11/21 01/13/24 fluticasone propionate 50 1 - 2 spray intranasal DAILY PRN 01/17/22 01/13/24 mcg/actuation nasal congestion spray,suspension naproxen 500 mg tablet 500 mg PO moderate pain 06/13/22 01/13/24 tizanidine 4 mg tablet 4 mg PO TID 06/13/22 01/13/24 aspirin 81 mg chewable tablet 81 mg PO QAM 07/25/22 01/13/24 pregabalin 100 mg capsule 100 mg PO ONCE 07/25/22 01/13/24 Previous Rx's ?Medication ?Instructions ?Recorded magnesium citrate 300 ml PO DAILY PRN constipation 02/28/20 #296 mL blood sugar diagnostic (FreeStyle 1 strip miscellaneous QID PRN for 09/19/20 Lite Strips) diabetes mellitus #150 strips blood-glucose meter (FreeStyle 1 ea miscellaneous DIRECTED #1 09/26/20 [place] Lite kit) kit lancets 33 gauge (TRUEplus Lancets) 1 gauge miscellaneous QID for 10/12/20 diabetes mellitus #100 ea flash glucose scanning reader #1 ea 01/01/21 (FreeStyle Alfredo 2 Brandon) flash glucose sensor (FreeStyle #2 ea 01/01/21 Alfredo 2 Sensor kit) dicyclomine 20 mg tablet 20 mg PO QID PRN abdominal pain 02/06/21 #20 tabs insulin glargine 100 unit/mL (3 30 unit (0.3 mL) subcut DAILY #15 08/06/21 mL) subcutaneous pen (Lantus mL Solostar U-100 Insulin) metformin 500 mg tablet 1,000 mg (2 x 500 mg) PO BID 30 12/12/21 days #120 tabs pen needle, diabetic 32 gauge x See Rx Instructions .Route 01/31/22 (Pentips) .COMPLEX #200 ea diclofenac sodium 1 % topical gel 2 g topical QID 30 days #100 grams 02/27/22 insulin aspart U-100 100 unit/mL See Rx Instructions subcut QID #30 03/27/22 (3 mL) subcutaneous pen (Novolog mL FlexPen U-100 Insulin aspart) hydrocortisone 2.5 % topical cream 1 appl MO BID PRN hemorrhoids #30 06/13/22 with perineal applicator grams (Proctozone-HC) polyethylene glycol 3350 17 17 g PO DAILY 30 days #510 grams 09/16/22 gram/dose oral powder (Miralax) nitroglycerin 0.4 mg sublingual 0.4 mg sublingual Q5M PRN angina 10/03/22 tablet pectoris #30 tabs ketorolac 10 mg tablet 10 mg PO Q6H PRN pain 5 days #20 02/23/23 tabs hydrocodone 5 mg-acetaminophen 325 1 tab PO Q6H PRN pain #10 tabs 06/10/23 mg tablet lidocaine 5 % topical patch 1 patch topical DAILY #30 ea 06/10/23 acetaminophen 325 mg capsule 325 mg PO Q4H PRN pain #30 caps 07/14/23 (Tylenol) lidocaine 5 % topical patch 1 patch topical DAILY PRN pain #15 07/14/23 ea ranolazine 500 mg tablet,extended 500 mg PO BID #180 tabs 07/30/23 release,12 hr methylcellulose (laxative) 500 mg 500 mg PO TID #90 tabs 10/30/23 tablet (Fiber Laxative (methylcellulose)) furosemide 20 mg tablet (Lasix) 20 mg PO DAILY 90 days #90 tabs 12/24/23 potassium citrate 10 mEq (1,080 20 meq (2 x 10 mEq (1,080 mg)) PO 12/24/23 mg) tablet,extended release BID 90 days #360 tabs doxazosin 4 mg tablet 8 mg (2 x 4 mg) PO BEDTIME 90 days 01/13/24 #180 tabs finasteride 5 mg tablet 5 mg PO DAILY 90 days #90 tabs 01/13/24 tadalafil 10 mg tablet 10 mg PO DAILY sexual activity 90 01/13/24 days #90 tabs docusate sodium 100 mg capsule 200 mg (2 x 100 mg) PO BEDTIME #60 03/02/24 (Stool Softener) caps acetaminophen 500 mg tablet 500 mg PO Q8H PRN pain #30 tabs 03/04/24 (Tylenol Extra Strength) Allergies Allergy/AdvReac Type Severity Reaction Status Date / Time No Known Allergies Allergy Verified 03/04/24 12:22 [No Known Allergies*] Review of Systems Review of Systems: Yes all other systems are reviewed and are negative Constitutional: Constitutional: Reports as per [facility] Past Medical History Attestation statement: The following information was validated with the patient. Medical History Ischemic cardiomyopathy Atherosclerotic cardiovascular disease History of pancreatitis Hepatitis B Hepatitis C Chronic HFrEF (heart failure with reduced ejection fraction) Cardiomyopathy Type 2 diabetes mellitus with hyperglycemia, with long-term current use of insulin Type 2 diabetes mellitus with diabetic polyneuropathy Hyperlipidemia LDL goal <70 Essential hypertension Myocardial infarction Surgical History Hx of colonoscopy History of appendectomy Hx of heart artery stent H/O coronary artery bypass surgery H/O cardiac catheterization Family History Family History Mother Diabetes Social History Social History Household Members: Spouse Alcohol intake: never Patient Tobacco Use Status: Never used Tobacco Current occupational status: unemployed Physical Exam Vital Signs: Vital Signs: Last Vital Signs Temp 97.7 F 03/04/24 16:57 Pulse 80 03/04/24 16:57 Resp 16 03/04/24 16:57 BP 116/70 03/04/24 16:57 Pulse Ox 98 03/04/24 16:57 O2 Del Method Room Air 03/04/24 16:57 BMI result Body Mass Index 25.5 Const: General: cooperative, comfortable and no acute distress Orientation/consciousness: patient oriented x3 Limitations: no limitations HEENT: Other: left parietal scalp with mild tenderness to palpation, no obvious hematoma noted. No open wounds. No raccoon eyes, bejarano's sign, periorbital ecchymosis seen Head: Yes normal to inspection and Yes normocephalic Ears: hearing grossly normal bilaterally and TM's normal bilaterally General nose exam: Normal external nose present Face and sinus: Yes normal facial exam Mouth: Normal oral and palatal mucosa present, oropharynx normal and moist mucous membranes Throat: Yes posterior oropharynx normal Eyes: General: appearance normal, both eyes and all related structures Eyelids: Yes eyelids normal Conjunctivae: conjunctivae normal Sclerae: sclerae normal Pupils: Equal, round and reactive pupils present EOM: EOMs intact bilaterally Neck: Other: No midline c spine tenderness to palpation. tenderness overlying the left cervical paraspinous muscles Neck: Yes normal visual inspection, Yes full ROM and Yes no lymphadenopathy Lymphatic: no lymphadenopathy noted Chest: Chest palpation & inspection: normal inspection of the chest Resp: Effort & Inspection: normal respiratory effort and able to speak in complete sentences Auscultation: clear to auscultation bilaterally, no crackles, no rales, no rhonchi and no wheezes Cardio: Rate: regular rate Rhythm: regular rhythm Heart sounds: S1 normal heart sound present and S2 normal heart sound present GI: Inspection: Yes normal to inspection Skin: General skin exam: no rashes or lesions noted Trauma: no lacerations or abrasions Wounds: no wounds Neuro: General: patient oriented x3 and moves all extremities Cranial nerves: Yes CN's II-XII intact bilaterally and Yes Equal, round and reactive pupils present Cognition (Neuro): normal cognition Gait exam (Neuro): Normal gait present Motor exam (neuro): 5/5 motor strength present throughout and Pronator motor function not present Extrem: Other: Left elbow with tenderness to palpation overlying the lateral epicondyle. No obvious bony deformity or swelling. No open wounds. Full ROM. Left shoulder with diffuse tenderness throughout, no overlying skin changes, bony deformities or swelling. No ecchymosis seen Left knee with no obvious bony deformity or swelling. tenderness to palpation overlying the medial and lateral joint line. Full ROM of the joint without difficulty. Strong radial pulse. Left clavicle with point tenderness to palpation overlying the distal aspect. No skin tenting. No bony deformity or swelling. General: Yes normal to inspection Right upper extremity: normal to inspection Left upper extremity: normal to inspection Right lower extremity: normal to inspection Course Reevaluation(s) Reevaluation #1: No acute findings on exam. Pt was medicated with tylenol in department. Discussed return precautions. He is ambulatory with steady gait, moving all extremities. Pt stable for d.c Medications Administered Discontinued Medications Generic Name Dose Route Start Last Admin Trade Name Freq PRN Reason Stop Dose Admin Acetaminophen 975 mg 03/04/24 14:38 03/04/24 14:55 Acetaminophen 325 Mg Tablet PO 03/04/24 14:39 975 mg ONCE ONE Administration Medical Decision Making Medical Decision Making [facility] Narrative: This is a 58 y/o M, with a hx of cardiomyopathy on plavix who presents to the ER with c/o shoulder pain, clavicle pain, neck pain, headache, left elbow pain and left knee pain s/p mechanical fall. On arrival, pt is alert and oriented x 4. No obvious bony deformities on exam. +headstrike with ttp overlying the left parietal region. Plan: CT head, neck, xray left shoulder, clavicle, elbow, knee Differential Diagnosis Differential Diagnoses: The differential diagnosis associated with the presentation includes ICH, SDH, fracture, sprain, strain contusion Admission/Observation Consideration of admission/observation: Escalation of care including admission/observation considered Radiology Impression Discussion of test interpretation with radiology: I have reviewed the radiologist's reading. Radiologist Impression: CT/CT cervical spine wo IV con IMPRESSION: Multilevel cervical spondylosis without acute fracture or trauma-related listhesis. Fleischner guidelines were followed. Electronically signed by: Kane Moncada MD 03/04/2024 02:46 PM EST RP Dictated By: Kane Gutiérrez MD CT/CT head/brain wo IV con IMPRESSION: Soft tissue contusion/hematoma left parietal. No acute fracture or bony calvarium. No acute intracranial hemorrhage. Acute on chronic right maxillary sinus disease. Electronically signed by: Kane Moncada MD 03/04/2024 02:52 PM EST RP Dictated By: Kane Gutiérrez MD XR/XR shoulder LT min 2V IMPRESSION: No acute fracture or dislocation. Electronically signed by: Kane Moncada MD 03/04/2024 03:38 PM EST RP Dictated By: Kane Gutiérrez MD XR/XR clavicle LT IMPRESSION: No acute fracture, left clavicle. Electronically signed by: Kane Moncada MD 03/04/2024 03:35 PM EST RP Dictated By: Kane Gutiérrez MD XR/XR elbow LT min 3V IMPRESSION: No acute fracture or dislocation. Enthesopathy, triceps tendon. Electronically signed by: Kane Moncada MD 03/04/2024 03:37 PM EST RP Dictated By: Kane Gutiérrez MD Discharge Plan Discharge Clinical Impression: Fall, Contusion of knee, Contusion of left shoulder Patient Disposition: Home, Self-Care Instructions: Contusion in Adults (ED), Fall Prevention (ED) Additional Instructions: You were seen in the emergency department due to a fall. Your head CT neck CT, clavicle x-ray, elbow x-ray, shoulder x-ray and knee x-ray do not show any new injury. Please rest, ice, elevate your leg,. Gentle range of motion, massage can also help with your symptoms. Follow-up with the orthopedic shoe maker as needed for pain and symptoms. If any new or worsening symptoms occur including but not limited to chest pain or shortness for breath, please seek emergent care. Prescriptions: New acetaminophen [Tylenol Extra Strength] 500 mg tablet 500 mg PO Q8H PRN (Reason: pain) Qty: 30 0RF No Action blood sugar diagnostic [FreeStyle Lite Strips] Strip 1 strip miscellaneous QID PRN (Reason: for diabetes mellitus) Qty: 150 11RF blood-glucose meter [FreeStyle [place] Lite] Kit 1 ea miscellaneous DIRECTED Qty: 1 0RF lancets [TRUEplus Lancets] 33 gauge misc 1 gauge miscellaneous QID Qty: 100 11RF metformin 500 mg tablet 1,000 mg PO BID 30 Days Qty: 120 4RF pen needle, diabetic [Pentips] 32 gauge x 5/32 needle See Rx Instructions .ROUTE .COMPLEX Qty: 200 2RF Dose Instruction: USE SIX TIMES DAILY DIRECTED Rx Instructions: USE SIX TIMES DAILY DIRECTED insulin aspart U-100 [Novolog FlexPen U-100 Insulin] 100 unit/mL (3 mL) insulin pen See Rx Instructions subcut QID Qty: 30 0RF Rx Instructions: 6-8 units with meals, 2 units with snack subcut 4 times a day; nitroglycerin 0.4 mg tablet, sublingual 0.4 mg sublingual Q5M PRN (Reason: angina pectoris) Qty: 30 3RF Rx Instructions: do not exceed 3 doses per episode ranolazine 500 mg tablet extended release 12 hr 500 mg PO BID Qty: 180 3RF Fiber Laxative(methylcellulos) 500 mg tablet 500 mg PO TID Qty: 90 5RF potassium citrate 10 mEq (1,080 mg) tablet extended release 20 meq PO BID 90 Days Qty: 360 1RF furosemide [Lasix] 20 mg tablet 20 mg PO DAILY 90 Days Qty: 90 3RF docusate sodium [Stool Softener] 100 mg capsule 200 mg PO BEDTIME Qty: 60 5RF magnesium citrate Solution 300 ml PO DAILY PRN (Reason: constipation) Qty: 296 0RF dicyclomine 20 mg tablet 20 mg PO QID PRN (Reason: abdominal pain) Qty: 20 0RF ketorolac 10 mg tablet 10 mg PO Q6H PRN (Reason: pain) 5 Days Qty: 20 0RF Rx Instructions: Patient received Toradol in the emergency room hydrocodone-acetaminophen 5-325 mg tablet 1 tab PO Q6H PRN (Reason: pain) Qty: 10 0RF Rx Instructions: partial fill okay; Partial Fill upon patient request. lidocaine 5 % adhesive patch,medicated 1 patch topical DAILY Qty: 30 0RF Rx Instructions: leave on most painful area for up to 12 hrs lidocaine 5 % adhesive patch,medicated 1 patch topical DAILY PRN (Reason: pain) Qty: 15 0RF Rx Instructions: leave on most painful area for up to 12 hrs acetaminophen [Tylenol] 325 mg capsule 325 mg PO Q4H PRN (Reason: pain) Qty: 30 0RF clopidogrel 75 mg tablet 75 mg PO DAILY carvedilol 3.125 mg tablet 3.125 mg PO BID Rx Instructions: must administer with a meal/food lisinopril 2.5 mg tablet 2.5 mg PO DAILY isosorbide mononitrate 60 mg tablet extended release 24 hr 60 mg PO DAILY atorvastatin 80 mg tablet 80 mg PO DAILY melatonin 5 mg capsule See Rx Instructions PO ONCE Rx Instructions: 5 mg (2 tab) PO once; gabapentin 800 mg tablet 800 mg PO BID ezetimibe [Zetia] 10 mg tablet 10 mg PO DAILY (DME) FreeStyle Alfredo 2 Brandon Misc See Rx Instructions .ROUTE .MEDSUPPLY Qty: 1 0RF Rx Instructions: As directed (DME) FreeStyle Alfredo 2 Sensor Kit See Rx Instructions .ROUTE .MEDSUPPLY Qty: 2 11RF Rx Instructions: As directed every 2 weeks ammonium lactate 12 % cream 1 appl topical BID Lantus Solostar U-100 Insulin 100 unit/mL (3 mL) insulin pen 30 unit subcut DAILY Qty: 15 4RF fluticasone propionate 50 mcg/actuation spray,suspension 1 - 2 spray intranasal DAILY PRN (Reason: congestion) aspirin 81 mg tablet,chewable 81 mg PO QAM diclofenac sodium 1 % gel 2 g topical QID 30 Days Qty: 100 8RF Rx Instructions: apply to hand; for hand includes palm/fingers/back of hand pregabalin 100 mg capsule 100 mg PO ONCE naproxen 500 mg tablet 500 mg PO tizanidine 4 mg tablet 4 mg PO TID hydrocortisone [Proctozone-HC] 2.5 % cream with perineal applicator 1 appl MO BID PRN (Reason: hemorrhoids) Qty: 30 3RF Rx Instructions: apply MO BID prn polyethylene glycol 3350 [Miralax] 17 gram/dose powder 17 g PO DAILY 30 Days Qty: 510 6RF doxazosin 4 mg tablet 8 mg PO BEDTIME 90 Days Qty: 180 1RF finasteride 5 mg tablet 5 mg PO DAILY 90 Days Qty: 90 1RF tadalafil 10 mg tablet 10 mg PO DAILY 90 Days Qty: 90 0RF Referrals: [facility] [place] Orth[facility] Surgeons [Provider Group] Interventions: ED Discharge Assessment Last Done: 03/04/24 16:57 Discharge Date/Time: 03/04/24 16:58 Print Language: Guinean
[2024-03-04 16:57] VITALS: BP 116/70; PULSE 80; RESP 16; TEMP 36.5; O2SAT 98
== END 2024-03-04 16:58 | disposition home or self-care (01) ==
PROVIDERS: Emergency Provider Emergency Medicine; PCP Registered Nurse
DX: S80.02XA Contusion of left knee, initial encounter (principal); S40.012A Contusion of left shoulder, initial encounter; M79.602 Pain in left arm; R51.9 Headache, unspecified; I42.9 Cardiomyopathy, unspecified; I10 Essential (primary) hypertension; W01.10XA Fall on same level from slipping, tripping and stumbling with subsequent striking against unspecified object, initial encounter; Y93.89 Activity, other specified; Y92.89 Other specified places as the place of occurrence of the external cause; Y99.8 Other external cause status; Z79.01 Long term (current) use of anticoagulants; Z79.899 Other long term (current) drug therapy
CPT/HCPCS: 70450; 72125; 73000; 73030; 73080; 73562; 99284

== ENCOUNTER → 2024-03-04 13:09 | Outpatient (BNV) | payer MEDICAID, SELFPAY | PROVIDERS: Emergency Provider Emergency Medicine; PCP Registered Nurse; Visit Provider Radiology Diagnostic Radiology | DX: M25.562 Pain in left knee (principal); M79.602 Pain in left arm; R51.9 Headache, unspecified | CPT/HCPCS: 70450; 72125; 73000; 73030; 73080; 73562 ==

== ENCOUNTER 2024-03-19 20:27 | Emergency (ER) | payer MEDICAID, SELFPAY ==
--- NOTE | ~2024-03-19 | XR_ITS ---
EXAMINATION: XR FOOT, RIGHT CLINICAL INFORMATION: rt foot pain COMPARISON: None available. TECHNIQUE: AP, lateral, and oblique views of the right foot. FINDINGS: The bones and soft tissues are normal. No fracture. Joint space narrowing at the first metatarsal-phalangeal joint. Joint spaces are maintained. Mild calcaneal enthesopathy. 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 Electronically signed by: Shama Yeager MD 03/19/2024 08:59 PM EST BERRY
--- NOTE | ~2024-03-19 | XR_ITS ---
EXAMINATION: XR FOOT, LEFT CLINICAL INFORMATION: lt foot pain COMPARISON: None available. TECHNIQUE: AP, lateral, and oblique views of the left foot. FINDINGS: The bones and soft tissues are normal. No fracture. Alignment is anatomic. Joint spaces are maintained. Mild calcaneal enthesopathy. XR/XR foot LT min 3V IMPRESSION: Mild calcaneal enthesopathy. Electronically signed by: Shama Yeager MD 03/19/2024 08:57 PM EST RP
[2024-03-19 20:30] VITALS: BP 139/82; PULSE 108; RESP 18; TEMP 36.6; O2SAT 98; BMI 25.6
--- NOTE | 2024-03-19 20:30 | ED.GENADULT ---
HPI - General Adult General Chief complaint: Extremity Problem Stated complaint: Bilat feet pain, diabetic Time Seen by Provider: 03/19/24 23:14 Source: patient Mode of arrival: ambulatory Limitations: no limitations History of Present Illness ED Provider: HPI narrative: Patient is diabetic comes here for fever chills and lower extremity pain and redness started 2 days getting worse now x-ray was done prior to my evaluation which was negative for fracture noted to have temperature of 101.4 degrees on arrival no skin break down no cough no urinary symptoms Related Data Home Medications ?Medication ?Instructions ?Recorded ?Confirmed atorvastatin 80 mg tablet 80 mg PO DAILY 04/11/20 01/13/24 carvedilol 3.125 mg tablet 3.125 mg PO BID 04/11/20 01/13/24 clopidogrel 75 mg tablet 75 mg PO DAILY 04/11/20 01/13/24 ezetimibe 10 mg tablet (Zetia) 10 mg PO DAILY 04/11/20 01/13/24 gabapentin 800 mg tablet 800 mg PO BID 04/11/20 01/13/24 isosorbide mononitrate 60 mg 60 mg PO DAILY 04/11/20 01/13/24 tablet,extended release 24 hr lisinopril 2.5 mg tablet 2.5 mg PO DAILY 04/11/20 01/13/24 melatonin 5 mg capsule See Rx Instructions PO ONCE 04/11/20 01/13/24 ammonium lactate 12 % topical cream 1 appl topical BID 07/11/21 01/13/24 fluticasone propionate 50 1 - 2 spray intranasal DAILY PRN 01/17/22 01/13/24 mcg/actuation nasal congestion spray,suspension naproxen 500 mg tablet 500 mg PO moderate pain 06/13/22 01/13/24 tizanidine 4 mg tablet 4 mg PO TID 06/13/22 01/13/24 aspirin 81 mg chewable tablet 81 mg PO QAM 07/25/22 01/13/24 pregabalin 100 mg capsule 100 mg PO ONCE 07/25/22 01/13/24 Previous Rx's ?Medication ?Instructions ?Recorded magnesium citrate 300 ml PO DAILY PRN constipation 02/28/20 #296 mL blood sugar diagnostic (FreeStyle 1 strip miscellaneous QID PRN for 09/19/20 Lite Strips) diabetes mellitus #150 strips blood-glucose meter (FreeStyle 1 ea miscellaneous DIRECTED #1 09/26/20 [employer] Lite kit) kit lancets 33 gauge (TRUEplus Lancets) 1 gauge miscellaneous QID for 10/12/20 diabetes mellitus #100 ea flash glucose scanning reader #1 ea 01/01/21 (FreeStyle Alfredo 2 [place]) flash glucose sensor (FreeStyle #2 ea 01/01/21 Alfredo 2 Sensor kit) dicyclomine 20 mg tablet 20 mg PO QID PRN abdominal pain 02/06/21 #20 tabs insulin glargine 100 unit/mL (3 30 unit (0.3 mL) subcut DAILY #15 08/06/21 mL) subcutaneous pen (Lantus mL Solostar U-100 Insulin) metformin 500 mg tablet 1,000 mg (2 x 500 mg) PO BID 30 12/12/21 days #120 tabs pen needle, diabetic 32 gauge x See Rx Instructions .Route 01/31/22 (Pentips Pen Needle) .COMPLEX #200 ea diclofenac sodium 1 % topical gel 2 g topical QID 30 days #100 grams 02/27/22 insulin aspart U-100 100 unit/mL See Rx Instructions subcut QID #30 03/27/22 (3 mL) subcutaneous pen (Novolog mL FlexPen U-100 Insulin aspart) hydrocortisone 2.5 % topical cream 1 appl CA BID PRN hemorrhoids #30 06/13/22 with perineal applicator grams (Proctozone-HC) polyethylene glycol 3350 17 17 g PO DAILY 30 days #510 grams 09/16/22 gram/dose oral powder (Miralax) nitroglycerin 0.4 mg sublingual 0.4 mg sublingual Q5M PRN angina 10/03/22 tablet pectoris #30 tabs ketorolac 10 mg tablet 10 mg PO Q6H PRN pain 5 days #20 02/23/23 tabs hydrocodone 5 mg-acetaminophen 325 1 tab PO Q6H PRN pain #10 tabs 06/10/23 mg tablet lidocaine 5 % topical patch 1 patch topical DAILY #30 ea 06/10/23 acetaminophen 325 mg capsule 325 mg PO Q4H PRN pain #30 caps 07/14/23 (Tylenol) lidocaine 5 % topical patch 1 patch topical DAILY PRN pain #15 07/14/23 ea ranolazine 500 mg tablet,extended 500 mg PO BID #180 tabs 07/30/23 release,12 hr methylcellulose (laxative) 500 mg 500 mg PO TID #90 tabs 10/30/23 tablet (Fiber Laxative (methylcellulose)) furosemide 20 mg tablet (Lasix) 20 mg PO DAILY 90 days #90 tabs 12/24/23 potassium citrate 10 mEq (1,080 20 meq (2 x 10 mEq (1,080 mg)) PO 12/24/23 mg) tablet,extended release BID 90 days #360 tabs doxazosin 4 mg tablet 8 mg (2 x 4 mg) PO BEDTIME 90 days 01/13/24 #180 tabs finasteride 5 mg tablet 5 mg PO DAILY 90 days #90 tabs 01/13/24 tadalafil 10 mg tablet 10 mg PO DAILY sexual activity 90 01/13/24 days #90 tabs docusate sodium 100 mg capsule 200 mg (2 x 100 mg) PO BEDTIME #60 03/02/24 (Stool Softener) caps acetaminophen 500 mg tablet 500 mg PO Q8H PRN pain #30 tabs 03/04/24 (Tylenol Extra Strength) cephalexin 500 mg capsule 500 mg PO QID 10 days #40 caps 03/20/24 doxycycline hyclate 100 mg tablet 100 mg PO BID #20 tabs 03/20/24 ibuprofen 600 mg tablet 600 mg PO Q6H PRN fever or pain 03/20/24 #30 tabs Allergies Allergy/AdvReac Type Severity Reaction Status Date / Time No Known Allergies Allergy Verified 03/19/24 20:31 [No Known Allergies*] Review of Systems Review of Systems: Yes all other systems are reviewed and are negative [facility] Past Medical History Medical History Ischemic cardiomyopathy Atherosclerotic cardiovascular disease History of pancreatitis Hepatitis B Hepatitis C Chronic HFrEF (heart failure with reduced ejection fraction) Cardiomyopathy Type 2 diabetes mellitus with hyperglycemia, with long-term current use of insulin Type 2 diabetes mellitus with diabetic polyneuropathy Hyperlipidemia LDL goal <70 Essential hypertension Myocardial infarction Surgical History Hx of colonoscopy History of appendectomy Hx of heart artery stent H/O coronary artery bypass surgery H/O cardiac catheterization Family History Family History Mother Diabetes Social History Social History Household Members: Spouse Alcohol intake: never Patient Tobacco Use Status: Never used Tobacco Smoked in Last 30 Days: No Use of substances other than those prescribed or required for medical reasons: No Advance Directives: No Advance Directives Information Provided: No Do you have a plan to hurt others: No Plan Current occupational status: unemployed Physical Exam ED Vital Signs: Vital Signs - 24 hr 03/19/24 20:30 03/19/24 22:36 03/20/24 00:00 Temperature 98 F 98.5 F 101.6 F H Pulse Rate 108 H 104 H 107 H Respiratory Rate 18 16 20 Blood Pressure 139/82 160/87 H 152/83 H Pulse Oximetry 98 98 96 Oxygen Delivery Method Room Air Room Air Room Air 03/20/24 01:32 Temperature 99.4 F Pulse Rate 92 Respiratory Rate 19 Blood Pressure 125/78 Pulse Oximetry 95 Oxygen Delivery Method Room Air BMI result Body Mass Index 25.6 Appearance: Alert. Oriented X3. No acute distress. Eyes: PERRLA, No Nystagmus ENT: Pharynx normal. Oral Mucosa moist Neck: Normal inspection. Neck supple. CVS: Normal heart rate and rhythm. Pulses normal. Respiratory: No respiratory distress. Equal air entry bilateral, no wheezing/rales/rhonchi Abdomen: Soft and nontender. Bowel sounds are present, no mass palpable, no CVA tenderness Skin: Skin warm and dry. Erythema of the bilateral dorsum of the feet no skin breakdown Extremities: No lower extremity edema. No calf tenderness Neuro: Oriented X 3. No motor deficit. No sensory deficit.No cerebellar signs , cranial nerves II-XII intact Course Course Course Narrative: This is an RME done by MARYBEL Thompson: Additional HPI, ROS, PE not included below will be deferred to primary provider. 59-year-old male history of hyperlipidemia, diabetes, ischemic cardiomyopathy, coronary artery disease presenting with bilateral foot pain particularly around the toe bilaterally. Reports he fell a few weeks ago and he is not sure of the falls contributing to pain. Pain severe and he is having trouble walking. Pain is worse at night. X-rays ordered Medications Administered Discontinued Medications Generic Name Dose Route Start Last Admin Trade Name Freq PRN Reason Stop Dose Admin Acetaminophen 650 mg 03/19/24 23:42 03/20/24 00:13 Acetaminophen 325 Mg Tablet PO 03/19/24 23:43 650 mg ONCE ONE Administration Cefazolin Sodium 1 gm 03/19/24 23:42 03/20/24 00:14 Cefazolin Sodium 1 Gm Vial IVPUSH 03/19/24 23:43 1 gm ONCE ONE Administration Doxycycline Monohydrate 100 mg 03/20/24 01:03 03/20/24 01:29 Doxycycline Monohydrate 100 Mg Capsule PO 03/20/24 01:04 100 mg ONCE ONE Administration Ketorolac Tromethamine 30 mg 03/19/24 23:42 03/20/24 00:13 Ketorolac Tromethamine 30 Mg/Ml Vial IVPUSH 03/19/24 23:43 30 mg ONCE ONE Administration Medical Decision Making Medical Decision Making [facility] Narrative: Patient has cellulitis of lower extremity etiology not very clear white counts are normal CRP also slightly elevated 0.62 lactic acid 1.3 started on IV Ancef blood cultures were drawn. Discharge patient home on doxycycline cephalexin cellulitis likely the cause for the fever Differential Diagnosis Differential Diagnoses: The differential diagnosis associated with the presentation includes Lab Data [facility] Lab Attestation statement: I reviewed the patient's lab results. 03/19/24 23:08 03/19/24 23:08 Labs: Lab Results 03/19/24 03/20/24 Range/Units 23:08 00:05 WBC 10.5 (4.8-10.8) X10*3/uL RBC 4.65 (4.60-5.80) X10*6/uL Hgb 14.7 (14.0-18.0) g/dl Hct 41.1 L (42.0-52.0) % MCV 88.4 (80.0-98.0) fL MCH 31.6 (27.0-33.0) pg MCHC 35.8 (31.0-36.0) g/dl RDW 12.5 (11.0-16.0) % Plt Count 163 (160-400) X10*3/uL MPV 10.6 (9.4-12.4) fL Immature Gran % (Auto) 0.3 (0.0-0.4) % Neut % (Auto) 81.1 H (45-73) % Lymph % (Auto) 9.2 L (20-40) % Bates % (Auto) 6.8 (2-11) % Eos % (Auto) 2.3 (0-4) % Baso % (Auto) 0.3 (0-2) % Lymph # (Auto) 1.0 L (1.2-4.9) X10*3/uL Bates # (Auto) 0.7 (0.1-1.2) X10*3/uL Eos # (Auto) 0.2 (0.0-0.4) X10*3/uL Baso # (Auto) 0.0 (0.0-0.2) X10*3/uL Abs Immat Gran (auto) 0.03 (0.00-0.03) X10*3/uL Absolute Neuts (auto) 8.6 H (2.0-8.3) x10*3/uL Absolute Nucleated RBC 0.000 (0.0-0.012) X10*3/uL Nucleated RBC % (auto) 0.0 (0.0-0.2) /100WBC ESR 5 (0-15) MM/HR Sodium 143 (135-145) mmol/L Potassium 3.7 (3.3-5.1) mmol/L Chloride 111 H (96-108) mmol/L Carbon Dioxide 24 (22-29) mmol/L Anion Gap 12 (12-20) BUN 19 H (9-16) mg/dL Creatinine 1.07 (0.5-1.4) mg/dL Estim Creat Clear Calc 71.9 Estimated GFR > 60 Random Glucose 125 H (60-115) mg/dL Lactic Acid 1.3 (0.5-2.0) mmol/L Uric Acid 4.1 (3.4-7.0) mg/dL Calcium 9.2 D (8.4-10.2) mg/dL Total Bilirubin 1.5 H (0.0-1.0) mg/dL AST 20 (5-37) U/L ALT 22 (0-40) U/L Alkaline Phosphatase 126 H (39-117) U/L C-Reactive Protein 0.62 H (< or = 0.50) mg/dL Total Protein 6.7 (6.5-8.0) g/dL Albumin 4.1 (3.5-5.0) g/dL COVID-19 (YESSI) Negative (Negative) COVID-19 Clin Com See Note Influenza Type A (BOYD) Negative (Negative) Influenza Type B (BOYD) Negative (Negative) Influenza A & B Note See Note Discharge Plan Discharge Clinical Impression: Cellulitis Patient Disposition: Home, Self-Care Instructions: Cellulitis (ED) Additional Instructions: Take antibiotics as prescribed Tylenol/Motrin for fever Report to the ER if gets worse Prescriptions: New cephalexin 500 mg capsule 500 mg PO QID 10 Days Qty: 40 0RF ibuprofen 600 mg tablet 600 mg PO Q6H PRN (Reason: fever or pain) Qty: 30 0RF doxycycline hyclate 100 mg tablet 100 mg PO BID Qty: 20 0RF No Action blood sugar diagnostic [FreeStyle Lite Strips] Strip 1 strip miscellaneous QID PRN (Reason: for diabetes mellitus) Qty: 150 11RF blood-glucose meter [FreeStyle [employer] Lite] Kit 1 ea miscellaneous DIRECTED Qty: 1 0RF lancets [TRUEplus Lancets] 33 gauge misc 1 gauge miscellaneous QID Qty: 100 11RF metformin 500 mg tablet 1,000 mg PO BID 30 Days Qty: 120 4RF pen needle, diabetic [Pentips Pen Needle] 32 gauge x 5/32 needle See Rx Instructions .ROUTE .COMPLEX Qty: 200 2RF Dose Instruction: USE SIX TIMES DAILY DIRECTED Rx Instructions: USE SIX TIMES DAILY DIRECTED insulin aspart U-100 [Novolog FlexPen U-100 Insulin] 100 unit/mL (3 mL) insulin pen See Rx Instructions subcut QID Qty: 30 0RF Rx Instructions: 6-8 units with meals, 2 units with snack subcut 4 times a day; nitroglycerin 0.4 mg tablet, sublingual 0.4 mg sublingual Q5M PRN (Reason: angina pectoris) Qty: 30 3RF Rx Instructions: do not exceed 3 doses per episode ranolazine 500 mg tablet extended release 12 hr 500 mg PO BID Qty: 180 3RF Fiber Laxative(methylcellulos) 500 mg tablet 500 mg PO TID Qty: 90 5RF potassium citrate 10 mEq (1,080 mg) tablet extended release 20 meq PO BID 90 Days Qty: 360 1RF furosemide [Lasix] 20 mg tablet 20 mg PO DAILY 90 Days Qty: 90 3RF docusate sodium [Stool Softener] 100 mg capsule 200 mg PO BEDTIME Qty: 60 5RF magnesium citrate Solution 300 ml PO DAILY PRN (Reason: constipation) Qty: 296 0RF dicyclomine 20 mg tablet 20 mg PO QID PRN (Reason: abdominal pain) Qty: 20 0RF ketorolac 10 mg tablet 10 mg PO Q6H PRN (Reason: pain) 5 Days Qty: 20 0RF Rx Instructions: Patient received Toradol in the emergency room hydrocodone-acetaminophen 5-325 mg tablet 1 tab PO Q6H PRN (Reason: pain) Qty: 10 0RF Rx Instructions: partial fill okay; Partial Fill upon patient request. lidocaine 5 % adhesive patch,medicated 1 patch topical DAILY Qty: 30 0RF Rx Instructions: leave on most painful area for up to 12 hrs lidocaine 5 % adhesive patch,medicated 1 patch topical DAILY PRN (Reason: pain) Qty: 15 0RF Rx Instructions: leave on most painful area for up to 12 hrs acetaminophen [Tylenol] 325 mg capsule 325 mg PO Q4H PRN (Reason: pain) Qty: 30 0RF acetaminophen [Tylenol Extra Strength] 500 mg tablet 500 mg PO Q8H PRN (Reason: pain) Qty: 30 0RF clopidogrel 75 mg tablet 75 mg PO DAILY carvedilol 3.125 mg tablet 3.125 mg PO BID Rx Instructions: must administer with a meal/food lisinopril 2.5 mg tablet 2.5 mg PO DAILY isosorbide mononitrate 60 mg tablet extended release 24 hr 60 mg PO DAILY atorvastatin 80 mg tablet 80 mg PO DAILY melatonin 5 mg capsule See Rx Instructions PO ONCE Rx Instructions: 5 mg (2 tab) PO once; gabapentin 800 mg tablet 800 mg PO BID ezetimibe [Zetia] 10 mg tablet 10 mg PO DAILY (DME) FreeStyle Alfredo 2 [place] Misc See Rx Instructions .ROUTE .MEDSUPPLY Qty: 1 0RF Rx Instructions: As directed (DME) FreeStyle Alfredo 2 Sensor Kit See Rx Instructions .ROUTE .MEDSUPPLY Qty: 2 11RF Rx Instructions: As directed every 2 weeks ammonium lactate 12 % cream 1 appl topical BID Lantus Solostar U-100 Insulin 100 unit/mL (3 mL) insulin pen 30 unit subcut DAILY Qty: 15 4RF fluticasone propionate 50 mcg/actuation spray,suspension 1 - 2 spray intranasal DAILY PRN (Reason: congestion) aspirin 81 mg tablet,chewable 81 mg PO QAM diclofenac sodium 1 % gel 2 g topical QID 30 Days Qty: 100 8RF Rx Instructions: apply to hand; for hand includes palm/fingers/back of hand pregabalin 100 mg capsule 100 mg PO ONCE naproxen 500 mg tablet 500 mg PO tizanidine 4 mg tablet 4 mg PO TID hydrocortisone [Proctozone-HC] 2.5 % cream with perineal applicator 1 appl CA BID PRN (Reason: hemorrhoids) Qty: 30 3RF Rx Instructions: apply CA BID prn polyethylene glycol 3350 [Miralax] 17 gram/dose powder 17 g PO DAILY 30 Days Qty: 510 6RF doxazosin 4 mg tablet 8 mg PO BEDTIME 90 Days Qty: 180 1RF finasteride 5 mg tablet 5 mg PO DAILY 90 Days Qty: 90 1RF tadalafil 10 mg tablet 10 mg PO DAILY 90 Days Qty: 90 0RF Print Language: [place]
[2024-03-19 22:36] VITALS: BP 160/87; PULSE 104; RESP 16; TEMP 36.9; O2SAT 98
[2024-03-19 23:12] LABS: MANUAL DIFF FLAG NO
[2024-03-19 23:13] LABS: Basophils Percent Auto 0.3 % (0-2); Eosinophils Absolute Auto 0.2 X10*3/uL (0.0-0.4); Eosinophils Percent Auto 2.3 % (0-4); Hematocrit 41.1 % (42.0-52.0); Hemoglobin 14.7 g/dl (14.0-18.0); Imm Gran Abs Auto 0.03 X10*3/uL (0.00-0.03); Imm Gran Pct Auto 0.3 % (0.0-0.4); Lymphocytes Percent Auto 9.2 % (20-40); Mean Corpuscular HGB Conc 35.8 g/dl (31.0-36.0); Mean Corpuscular Hemoglobin 31.6 pg (27.0-33.0); Mean Corpuscular Volume 88.4 fL (80.0-98.0); Mean Platelet Volume 10.6 fL (9.4-12.4); Monocytes Absolute Auto 0.7 X10*3/uL (0.1-1.2); Monocytes Percent Auto 6.8 % (2-11); Neutrophils Absolute Auto 8.6 x10*3/uL (2.0-8.3); Neutrophils Percent Auto 81.1 % (45-73); Platelet Count 163 X10*3/uL (160-400); Red Blood Count 4.65 X10*6/uL (4.60-5.80); Red Cell Distribution Width 12.5 % (11.0-16.0); White Blood Count 10.5 X10*3/uL (4.8-10.8)
[2024-03-19 23:27] LABS: Alanine Aminotransferase 22 U/L (0-40); Albumin Level 4.1 g/dL (3.5-5.0); Alkaline Phosphatase 126 U/L (39-117); Anion Gap 12 (12-20); Aspartate Amino Transferase 20 U/L (5-37); Bilirubin Total 1.5 mg/dL (0.0-1.0); Blood Urea Nitrogen 19 mg/dL (9-16); Calcium 9.2 mg/dL (8.4-10.2); Carbon Dioxide 24 mmol/L (22-29); Chloride 111 mmol/L (96-108); Creatinine Clr Calc Pharmacy 71.9; Estimated Glomerular Filt Rate > 60; Glucose Random 125 mg/dL (60-115); IDNOW Serial# 08D9AD1C; Potassium 3.7 mmol/L (3.3-5.1); Sodium 143 mmol/L (135-145); Total Protein 6.7 g/dL (6.5-8.0); Uric Acid 4.1 mg/dL (3.4-7.0)
[2024-03-19 23:28] LABS: COVID-19 Test Negative (Negative)
[2024-03-19 23:31] LABS: IDNOW Serial# 6674DD1D; Influenza A Negative (Negative); Influenza B2 Negative (Negative)
[2024-03-19 23:56] LABS: C Reactive Protein 0.62 mg/dL (< or = 0.50)
[2024-03-20] VITALS: BP 152/83; PULSE 107; RESP 20; TEMP 38.7; O2SAT 96
[2024-03-20] MEDS: Acetaminophen 325 MG TABLET 650 MG PO (00:13)
[2024-03-20] MEDS: Ketorolac Tromethamine 30 MG/ML VIAL IVPUSH (00:13)
[2024-03-20] MEDS: ceFAZolin Sodium 1 GM VIAL IVPUSH (00:14)
[2024-03-20 00:23] LABS: Erythrocyte Sedimentation Rate 5 MM/HR (0-15)
[2024-03-20 00:28] LABS: Lactic Acid 1.3 mmol/L (0.5-2.0)
[2024-03-20] MEDS: Doxycycline Monohydrate 100 MG CAPSULE PO (01:29)
[2024-03-20 01:32] VITALS: BP 125/78; PULSE 92; RESP 19; TEMP 37.4; O2SAT 95
[2024-03-20 02:19] VITALS: BP 125/78; PULSE 92; RESP 19; TEMP 37.4; O2SAT 95
== END 2024-03-20 02:23 | disposition home or self-care (01) ==
PROVIDERS: Emergency Provider Internal Medicine
DX: L03.116 Cellulitis of left lower limb (principal); L03.115 Cellulitis of right lower limb; M79.672 Pain in left foot; M79.671 Pain in right foot; Z03.818 Encounter for observation for suspected exposure to other biological agents ruled out; E11.9 Type 2 diabetes mellitus without complications; I11.0 Hypertensive heart disease with heart failure; I50.22 Chronic systolic (congestive) heart failure; E78.5 Hyperlipidemia, unspecified; I25.2 Old myocardial infarction; B19.10 Unspecified viral hepatitis B without hepatic coma; B19.20 Unspecified viral hepatitis C without hepatic coma; Z95.1 Presence of aortocoronary bypass graft; Z79.02 Long term (current) use of antithrombotics/antiplatelets; Z79.899 Other long term (current) drug therapy; Z79.82 Long term (current) use of aspirin; Z79.4 Long term (current) use of insulin
CPT/HCPCS: 36415; 73630; 80053; 83605; 84550; 85025; 85652; 86140; 87040; 87502; 87635; 96374; 96375; 99284; J0690; J1885

== ENCOUNTER 2024-04-26 11:06 | Outpatient (AMB) | payer MEDICAID, SELFPAY ==
--- NOTE | 2024-04-26 11:10 | A.OFFVIS_ITS ---
Intake Visit Reasons: Left Knee Injection - Last Done01/23/24 Intake Note: Barrett is a 59 year old male who presents today for a left knee injection, last injection 01/23/24. He is a poor surgical candidate. He was seen at [facility] for complaints of left knee pain s/p fall 03/04/24. Patient states that he was told he has a fracture in the left knee by the ED. He would like to repeat injection today. Allergies No Known Allergies [No Known Allergies*] Allergy (Verified 03/19/24 20:31) HPI HPI Left Knee Injection - Last Done01/23/24: Details: Barrett is a 59 year old male who presents today for a left knee injection, last injection 01/23/24. He is a poor surgical candidate. He was seen at [facility] for complaints of left knee pain s/p fall 03/04/24. Patient states that he was told he has a fracture in the left knee by the ED. He would like to repeat injection today. He fell on his left knee about 2 months ago and initial radiographs were negative but states a CT scan at outside hospital showed a small fracture. He states his pain is improving but he still has difficulty going up and down stairs. [facility]LY [facility] Medical History Ischemic cardiomyopathy Atherosclerotic cardiovascular disease History of pancreatitis Hepatitis B Hepatitis C Chronic HFrEF (heart failure with reduced ejection fraction) Cardiomyopathy Type 2 diabetes mellitus with hyperglycemia, with long-term current use of insulin Type 2 diabetes mellitus with diabetic polyneuropathy Hyperlipidemia LDL goal <70 Essential hypertension Myocardial infarction Surgical History Hx of colonoscopy History of appendectomy Hx of heart artery stent H/O coronary artery bypass surgery H/O cardiac catheterization Family History Mother Diabetes Social History Household Members: Spouse Alcohol intake: never Patient Tobacco Use Status: Never used Tobacco Current occupational status: unemployed Physical Exam Extrem Other: Tenderness to palpation medial and lateral compartment left knee. Mild tenderness over the tibial tubercle. No effusion. No soft tissue swelling. Full range of motion. Mild gait antalgia. Assessment & Plan Assessment & Plan (1) Arthritis of left knee: Code(s): M17.12 - Unilateral primary osteoarthritis, left knee Category: Medical Plan: Left knee osteoarthritis status post fall 2 months ago in which she may have had a small fracture. He states it is improving but still painful. He has a very poor surgical candidate and his sugars are above 300 right now so steroid injections contraindicated. If he is able to get his sugars down around 150 I am happy to inject his left knee. No additional intervention warranted at this time. Coding Level of Care Code Est Pt Level 3 (71626) Diagnoses Arthritis of left knee M17.12
== END 2024-04-26 11:31 | disposition home or self-care (01) ==
PROVIDERS: PCP Registered Nurse; Visit Provider Orthopaedic Surgery
DX: M17.12 Unilateral primary osteoarthritis, left knee (principal)
CPT/HCPCS: 99213

== ENCOUNTER → 2024-04-26 11:06 | Outpatient (BNVA) | payer MEDICAID, SELFPAY | PROVIDERS: PCP Registered Nurse; Visit Provider Orthopaedic Surgery | DX: M17.12 Unilateral primary osteoarthritis, left knee (principal) | CPT/HCPCS: 99212 ==

== ENCOUNTER → 2024-05-14 10:58 | Outpatient (BNVA) | payer MEDICAID, SELFPAY | PROVIDERS: PCP Registered Nurse; Visit Provider Urology | DX: N40.0 Benign prostatic hyperplasia without lower urinary tract symptoms (principal); N32.0 Bladder-neck obstruction | CPT/HCPCS: 51700; 51798 ==

== ENCOUNTER 2024-05-21 11:17 | Emergency (ER) | payer MEDICAID, SELFPAY ==
[2024-05-21 11:29] VITALS: BP 101/71; BP 110/78; PULSE 83; PULSE 98; RESP 18; TEMP 36.4; O2SAT 95; O2SAT 97; BMI 31.8
--- NOTE | 2024-05-21 11:32 | ED.ABDPAIN ---
HPI - Abdominal Pain General Chief Complaint: Back Pain/Injury Stated Complaint: BACK/KIDNEY PAIN S/P KIDNEY INF PER EMS Time Seen by Provider: 05/21/24 19:09 Related Data Home Medications ?Medication ?Instructions ?Recorded ?Confirmed atorvastatin 80 mg tablet 80 mg PO DAILY 04/11/20 01/13/24 carvedilol 3.125 mg tablet 3.125 mg PO BID 04/11/20 01/13/24 clopidogrel 75 mg tablet 75 mg PO DAILY 04/11/20 01/13/24 ezetimibe 10 mg tablet (Zetia) 10 mg PO DAILY 04/11/20 01/13/24 gabapentin 800 mg tablet 800 mg PO BID 04/11/20 01/13/24 isosorbide mononitrate 60 mg 60 mg PO DAILY 04/11/20 01/13/24 tablet,extended release 24 hr lisinopril 2.5 mg tablet 2.5 mg PO DAILY 04/11/20 01/13/24 melatonin 5 mg capsule See Rx Instructions PO ONCE 04/11/20 01/13/24 ammonium lactate 12 % topical cream 1 appl topical BID 07/11/21 01/13/24 fluticasone propionate 50 1 - 2 spray intranasal DAILY PRN 01/17/22 01/13/24 mcg/actuation nasal congestion spray,suspension naproxen 500 mg tablet 500 mg PO moderate pain 06/13/22 01/13/24 tizanidine 4 mg tablet 4 mg PO TID 06/13/22 01/13/24 aspirin 81 mg chewable tablet 81 mg PO QAM 07/25/22 01/13/24 pregabalin 100 mg capsule 100 mg PO ONCE 07/25/22 01/13/24 Previous Rx's ?Medication ?Instructions ?Recorded magnesium citrate 300 ml PO DAILY PRN constipation 02/28/20 #296 mL blood sugar diagnostic (FreeStyle 1 strip miscellaneous QID PRN for 09/19/20 Lite Strips) diabetes mellitus #150 strips blood-glucose meter (FreeStyle 1 ea miscellaneous DIRECTED #1 09/26/20 Archer Lite kit) kit lancets 33 gauge (TRUEplus Lancets) 1 gauge miscellaneous QID for 10/12/20 diabetes mellitus #100 ea flash glucose scanning reader #1 ea 01/01/21 (FreeStyle Alfredo 2 Hartshorne) flash glucose sensor (FreeStyle #2 ea 01/01/21 Alfredo 2 Sensor kit) dicyclomine 20 mg tablet 20 mg PO QID PRN abdominal pain 02/06/21 #20 tabs insulin glargine 100 unit/mL (3 30 unit (0.3 mL) subcut DAILY #15 08/06/21 mL) subcutaneous pen (Lantus mL Solostar U-100 Insulin) metformin 500 mg tablet 1,000 mg (2 x 500 mg) PO BID 30 12/12/21 days #120 tabs pen needle, diabetic 32 gauge x See Rx Instructions .Route 01/31/22 (Pentips Pen Needle) .COMPLEX #200 ea diclofenac sodium 1 % topical gel 2 g topical QID 30 days #100 grams 02/27/22 insulin aspart U-100 100 unit/mL See Rx Instructions subcut QID #30 03/27/22 (3 mL) subcutaneous pen (Novolog mL FlexPen U-100 Insulin aspart) hydrocortisone 2.5 % topical cream 1 appl AR BID PRN hemorrhoids #30 06/13/22 with perineal applicator grams (Proctozone-HC) polyethylene glycol 3350 17 17 g PO DAILY 30 days #510 grams 09/16/22 gram/dose oral powder (Miralax) nitroglycerin 0.4 mg sublingual 0.4 mg sublingual Q5M PRN angina 10/03/22 tablet pectoris #30 tabs ketorolac 10 mg tablet 10 mg PO Q6H PRN pain 5 days #20 02/23/23 tabs hydrocodone 5 mg-acetaminophen 325 1 tab PO Q6H PRN pain #10 tabs 06/10/23 mg tablet lidocaine 5 % topical patch 1 patch topical DAILY #30 ea 06/10/23 acetaminophen 325 mg capsule 325 mg PO Q4H PRN pain #30 caps 07/14/23 (Tylenol) lidocaine 5 % topical patch 1 patch topical DAILY PRN pain #15 07/14/23 ea ranolazine 500 mg tablet,extended 500 mg PO BID #180 tabs 07/30/23 release,12 hr furosemide 20 mg tablet (Lasix) 20 mg PO DAILY 90 days #90 tabs 12/24/23 potassium citrate 10 mEq (1,080 20 meq (2 x 10 mEq (1,080 mg)) PO 12/24/23 mg) tablet,extended release BID 90 days #360 tabs doxazosin 4 mg tablet 8 mg (2 x 4 mg) PO BEDTIME 90 days 01/13/24 #180 tabs finasteride 5 mg tablet 5 mg PO DAILY 90 days #90 tabs 01/13/24 tadalafil 10 mg tablet 10 mg PO DAILY sexual activity 90 01/13/24 days #90 tabs docusate sodium 100 mg capsule 200 mg (2 x 100 mg) PO BEDTIME #60 03/02/24 (Stool Softener) caps acetaminophen 500 mg tablet 500 mg PO Q8H PRN pain #30 tabs 03/04/24 (Tylenol Extra Strength) cephalexin 500 mg capsule 500 mg PO QID 10 days #40 caps 03/20/24 doxycycline hyclate 100 mg tablet 100 mg PO BID #20 tabs 03/20/24 ibuprofen 600 mg tablet 600 mg PO Q6H PRN fever or pain 03/20/24 #30 tabs calcium polycarbophil 625 mg 625 mg PO TID #270 tabs 04/12/24 tablet (Fiber-Lax) Allergies Allergy/AdvReac Type Severity Reaction Status Date / Time No Known Allergies Allergy Verified 05/21/24 11:34 [No Known Allergies*] [facility] Past Medical History Medical History Ischemic cardiomyopathy Atherosclerotic cardiovascular disease History of pancreatitis Hepatitis B Hepatitis C Chronic HFrEF (heart failure with reduced ejection fraction) Cardiomyopathy Type 2 diabetes mellitus with hyperglycemia, with long-term current use of insulin Type 2 diabetes mellitus with diabetic polyneuropathy Hyperlipidemia LDL goal <70 Essential hypertension Myocardial infarction Surgical History Hx of colonoscopy History of appendectomy Hx of heart artery stent H/O coronary artery bypass surgery H/O cardiac catheterization Family History Family History Mother Diabetes Social History Social History Household Members: Spouse Alcohol intake: never Patient Tobacco Use Status: Never used Tobacco Advance Directives: No Advance Directives Information Provided: No Current occupational status: unemployed Physical Exam ED Vital Signs: BMI result Body Mass Index 31.8 Course Course Course Narrative: This is a rapid medical exam performed by Swati Bender PA-C. The patient is a 59-year-old male with a history of diabetes, BPH, hypertension, kidney stones, who presents with bilateral flank pain of unclear duration. Associated subjective fever. We will be screening basic labs, urinalysis and a CT scan. The patient is hemodynamically stable and can return to the waiting room pending his full medical assessment. Medical Decision Making Lab Data 05/21/24 11:43 05/21/24 11:43 Labs: Lab Results 05/21/24 05/21/24 Range/Units 11:43 13:35 WBC 6.1 (4.8-10.8) X10*3/uL RBC 5.10 (4.60-5.80) X10*6/uL Hgb 15.7 (14.0-18.0) g/dl Hct 44.8 (42.0-52.0) % MCV 87.8 (80.0-98.0) fL MCH 30.8 (27.0-33.0) pg MCHC 35.0 (31.0-36.0) g/dl RDW 12.3 (11.0-16.0) % Plt Count 189 (160-400) X10*3/uL MPV 10.7 (9.4-12.4) fL Immature Gran % (Auto) 0.5 H (0.0-0.4) % Neut % (Auto) 64.5 (45-73) % Lymph % (Auto) 23.3 (20-40) % Nicollet % (Auto) 6.9 (2-11) % Eos % (Auto) 4.1 H (0-4) % Baso % (Auto) 0.7 (0-2) % Lymph # (Auto) 1.4 (1.2-4.9) X10*3/uL [place] # (Auto) 0.4 (0.1-1.2) X10*3/uL Eos # (Auto) 0.3 (0.0-0.4) X10*3/uL Baso # (Auto) 0.0 (0.0-0.2) X10*3/uL Abs Immat Gran (auto) 0.03 (0.00-0.03) X10*3/uL Absolute Neuts (auto) 3.9 (2.0-8.3) x10*3/uL Absolute Nucleated RBC 0.000 (0.0-0.012) X10*3/uL Nucleated RBC % (auto) 0.0 (0.0-0.2) /100WBC Sodium 134 L (135-145) mmol/L Potassium 4.1 (3.3-5.1) mmol/L Chloride 107 (96-108) mmol/L Carbon Dioxide 22 (22-29) mmol/L Anion Gap 9 L (12-20) BUN 19 H (9-16) mg/dL Creatinine 1.04 (0.5-1.4) mg/dL Estim Creat Clear Calc 74.7 Estimated GFR > 60 POC Glucose 318 H (60-115) mg/dL Random Glucose 296 H (60-115) mg/dL Calcium 9.0 (8.4-10.2) mg/dL Magnesium 2.0 (1.6-2.6) mg/dL Total Bilirubin 1.7 H (0.0-1.0) mg/dL AST 21 (5-37) U/L ALT 23 (0-40) U/L Alkaline Phosphatase 142 H (39-117) U/L Total Protein 7.4 (6.5-8.0) g/dL Albumin 4.2 (3.5-5.0) g/dL Lipase 35 (8-78) U/L Urine Color Yellow Urine Appearance Clear Urine pH 5.5 (5.0-9.0) Ur Specific Sharon >= 1.030 H (1.005-1.025) Urine Protein Negative (Neg-Trace) mg/dL Urine Glucose (UA) >=1000 H (Negative) mg/dL Urine Ketones Negative (Negative) mg/dL Urine Blood Negative (Negative) Urine Nitrite Negative (Negative) Ur Leukocyte Esterase Negative (Negative) Urine RBC 0-2 (0-2) /HPF Urine WBC 0-5 (0-5) /HPF Ur Squamous Epith Cells 0-2 (0-2) /HPF Urine Bacteria None Seen (None Seen) Hyaline Casts 0-2 (0-2) /LPF Discharge Plan Discharge Clinical Impression: Bilateral flank pain Patient Disposition: Left W/O Completing Treatment Prescriptions: No Action blood sugar diagnostic [FreeStyle Lite Strips] Strip 1 strip miscellaneous QID PRN (Reason: for diabetes mellitus) Qty: 150 11RF blood-glucose meter [FreeStyle Archer Lite] Kit 1 ea miscellaneous DIRECTED Qty: 1 0RF lancets [TRUEplus Lancets] 33 gauge misc 1 gauge miscellaneous QID Qty: 100 11RF metformin 500 mg tablet 1,000 mg PO BID 30 Days Qty: 120 4RF pen needle, diabetic [Pentips Pen Needle] 32 gauge x 5/32 needle See Rx Instructions .ROUTE .COMPLEX Qty: 200 2RF Dose Instruction: USE SIX TIMES DAILY DIRECTED Rx Instructions: USE SIX TIMES DAILY DIRECTED insulin aspart U-100 [Novolog FlexPen U-100 Insulin] 100 unit/mL (3 mL) insulin pen See Rx Instructions subcut QID Qty: 30 0RF Rx Instructions: 6-8 units with meals, 2 units with snack subcut 4 times a day; nitroglycerin 0.4 mg tablet, sublingual 0.4 mg sublingual Q5M PRN (Reason: angina pectoris) Qty: 30 3RF Rx Instructions: do not exceed 3 doses per episode ranolazine 500 mg tablet extended release 12 hr 500 mg PO BID Qty: 180 3RF potassium citrate 10 mEq (1,080 mg) tablet extended release 20 meq PO BID 90 Days Qty: 360 1RF furosemide [Lasix] 20 mg tablet 20 mg PO DAILY 90 Days Qty: 90 3RF docusate sodium [Stool Softener] 100 mg capsule 200 mg PO BEDTIME Qty: 60 5RF calcium polycarbophil [Fiber-Lax] 625 mg tablet 625 mg PO TID Qty: 270 1RF magnesium citrate Solution 300 ml PO DAILY PRN (Reason: constipation) Qty: 296 0RF dicyclomine 20 mg tablet 20 mg PO QID PRN (Reason: abdominal pain) Qty: 20 0RF ketorolac 10 mg tablet 10 mg PO Q6H PRN (Reason: pain) 5 Days Qty: 20 0RF Rx Instructions: Patient received Toradol in the emergency room hydrocodone-acetaminophen 5-325 mg tablet 1 tab PO Q6H PRN (Reason: pain) Qty: 10 0RF Rx Instructions: partial fill okay; Partial Fill upon patient request. lidocaine 5 % adhesive patch,medicated 1 patch topical DAILY Qty: 30 0RF Rx Instructions: leave on most painful area for up to 12 hrs lidocaine 5 % adhesive patch,medicated 1 patch topical DAILY PRN (Reason: pain) Qty: 15 0RF Rx Instructions: leave on most painful area for up to 12 hrs acetaminophen [Tylenol] 325 mg capsule 325 mg PO Q4H PRN (Reason: pain) Qty: 30 0RF acetaminophen [Tylenol Extra Strength] 500 mg tablet 500 mg PO Q8H PRN (Reason: pain) Qty: 30 0RF cephalexin 500 mg capsule 500 mg PO QID 10 Days Qty: 40 0RF ibuprofen 600 mg tablet 600 mg PO Q6H PRN (Reason: fever or pain) Qty: 30 0RF doxycycline hyclate 100 mg tablet 100 mg PO BID Qty: 20 0RF clopidogrel 75 mg tablet 75 mg PO DAILY carvedilol 3.125 mg tablet 3.125 mg PO BID Rx Instructions: must administer with a meal/food lisinopril 2.5 mg tablet 2.5 mg PO DAILY isosorbide mononitrate 60 mg tablet extended release 24 hr 60 mg PO DAILY atorvastatin 80 mg tablet 80 mg PO DAILY melatonin 5 mg capsule See Rx Instructions PO ONCE Rx Instructions: 5 mg (2 tab) PO once; gabapentin 800 mg tablet 800 mg PO BID ezetimibe [Zetia] 10 mg tablet 10 mg PO DAILY (DME) FreeStyle Alfredo 2 Hartshorne Misc See Rx Instructions .ROUTE .MEDSUPPLY Qty: 1 0RF Rx Instructions: As directed (DME) FreeStyle Alfredo 2 Sensor Kit See Rx Instructions .ROUTE .MEDSUPPLY Qty: 2 11RF Rx Instructions: As directed every 2 weeks ammonium lactate 12 % cream 1 appl topical BID Lantus Solostar U-100 Insulin 100 unit/mL (3 mL) insulin pen 30 unit subcut DAILY Qty: 15 4RF fluticasone propionate 50 mcg/actuation spray,suspension 1 - 2 spray intranasal DAILY PRN (Reason: congestion) aspirin 81 mg tablet,chewable 81 mg PO QAM diclofenac sodium 1 % gel 2 g topical QID 30 Days Qty: 100 8RF Rx Instructions: apply to hand; for hand includes palm/fingers/back of hand pregabalin 100 mg capsule 100 mg PO ONCE naproxen 500 mg tablet 500 mg PO tizanidine 4 mg tablet 4 mg PO TID hydrocortisone [Proctozone-HC] 2.5 % cream with perineal applicator 1 appl AR BID PRN (Reason: hemorrhoids) Qty: 30 3RF Rx Instructions: apply AR BID prn polyethylene glycol 3350 [Miralax] 17 gram/dose powder 17 g PO DAILY 30 Days Qty: 510 6RF doxazosin 4 mg tablet 8 mg PO BEDTIME 90 Days Qty: 180 1RF finasteride 5 mg tablet 5 mg PO DAILY 90 Days Qty: 90 1RF tadalafil 10 mg tablet 10 mg PO DAILY 90 Days Qty: 90 0RF Discharge Date/Time: 05/21/24 19:37
[2024-05-21 11:50] LABS: MANUAL DIFF FLAG NO
[2024-05-21 11:51] LABS: Basophils Percent Auto 0.7 % (0-2); Eosinophils Absolute Auto 0.3 X10*3/uL (0.0-0.4); Eosinophils Percent Auto 4.1 % (0-4); Hematocrit 44.8 % (42.0-52.0); Hemoglobin 15.7 g/dl (14.0-18.0); Imm Gran Abs Auto 0.03 X10*3/uL (0.00-0.03); Imm Gran Pct Auto 0.5 % (0.0-0.4); Lymphocytes Absolute Auto 1.4 X10*3/uL (1.2-4.9); Lymphocytes Percent Auto 23.3 % (20-40); Mean Corpuscular Hemoglobin 30.8 pg (27.0-33.0); Mean Corpuscular Volume 87.8 fL (80.0-98.0); Mean Platelet Volume 10.7 fL (9.4-12.4); Monocytes Absolute Auto 0.4 X10*3/uL (0.1-1.2); Monocytes Percent Auto 6.9 % (2-11); Neutrophils Absolute Auto 3.9 x10*3/uL (2.0-8.3); Neutrophils Percent Auto 64.5 % (45-73); Platelet Count 189 X10*3/uL (160-400); Red Cell Distribution Width 12.3 % (11.0-16.0); White Blood Count 6.1 X10*3/uL (4.8-10.8)
[2024-05-21 11:54] LABS: Appearance Urine Clear; Color Urine Yellow; Glucose Urine UA >=1000 mg/dL (Negative); Leukocyte Esterase Urine Negative (Negative); Nitrite Urine Negative (Negative); PH 5.5 (5.0-9.0); Specific Gravity - Urine >= 1.030 (1.005-1.025); UMIC TRIGGER UACC YES; Urine Blood Negative (Negative); Urine Ketones Negative (Negative); Urine Protein Negative (Neg-Trace)
[2024-05-21 12:07] LABS: Alanine Aminotransferase 23 U/L (0-40); Albumin Level 4.2 g/dL (3.5-5.0); Alkaline Phosphatase 142 U/L (39-117); Anion Gap 9 (12-20); Aspartate Amino Transferase 21 U/L (5-37); Bilirubin Total 1.7 mg/dL (0.0-1.0); Blood Urea Nitrogen 19 mg/dL (9-16); Carbon Dioxide 22 mmol/L (22-29); Chloride 107 mmol/L (96-108); Creatinine Clr Calc Pharmacy 74.7; Estimated Glomerular Filt Rate > 60; Glucose Random 296 mg/dL (60-115); Lipase 35 U/L (8-78); Potassium 4.1 mmol/L (3.3-5.1); Sodium 134 mmol/L (135-145); Total Protein 7.4 g/dL (6.5-8.0)
[2024-05-21 12:15] LABS: Bacteria Urine None Seen (None Seen); Hyaline Casts Urine 0-2 /LPF (0-2); RBC Urine 0-2 /HPF (0-2); Squamous Epithelial Cell Urine 0-2 /HPF (0-2); WBC Urine 0-5 /HPF (0-5)
[2024-05-21 13:39] LABS: Glucose, Whole Blood 318 mg/dL (60-115)
--- OUTSIDE RECORDS SUMMARY | 2024-05-21 19:31 | XMS_ITS | Encounter Summary ---
Author Organization [employer] Address [address] [facility] [address] [place] [address] Care Team Providers Care Real Estate Associate Name Role Phone Waleska Goldberg AMERICO Primary Care Provider [phone] Encounter Details Date Type Department Care Team (Late st Contact Info) Description 05/21/2024 Orders Only GENERIC EXTERNAL DATA DEPARTMENT Provider, Generic External Data Social History Tobacco Use Types Packs/Day Years Used Date Smoking Tobacco: Never Smokeless Tobacco: Never Alcohol Use Standard Drinks/Week Comments Never 0 (1 standard drink = 0.6 oz pur e alcohol) Depression Answer Date Recorded Patient Health Questionnaire-9 Score 6 07/30/2023 Patient Health Questionnaire-9 Score 6 07/30/2023 Last PHQ-9: Questionnaire Data Not on file 0 07/30/2023 Housing Stability Answer Date Recorded What is your housing situation today? I have cierra winston 04/16/[address] you li ve. Do you have problems with any of the following? None of the above 04/16/2024 Food Insecurity Answer Date Recorded Within the past 12 months, y ou worried that your food would run out before you got money to buy more: Sometimes True 2024 Within the past 12 months,th e food you bought just didn't last and you didn't have enough money to get more: Sometimes True 05/04/2024 Transportation Answer Date Recorded In the past 12 months, has l ack of transportation kept you from medical appts, meetings, work or from getting things needed for daily living? No 04/16/2024 Utilities Answer Date Recorded In the past 12 months, has t he electric, gas, oil or water company threatened to shut off services in your home? No 04/16/2024 Depression Answer Date Recorded Patient Health Questionnaire-2 Score 0 07/30/2023 Internet Access Answer Date Recorded Internet Access Q1 Yes 04/16/2024 Internet Access Q2 Not on file 04/16/2024 Sex and Gender Information Value Date Recorded Sex Assigned at Male 02/11/2022 10:34 AM EDT Legal Sex Male 10:34 AM EDT Gender Identity Male 02/11/2022 10:34 AM EDT Sexual Orientation Choose not to disclose 2021 10:34 AM EDT documented as of this encounter Plan of Treatment Not on file documented as of this encounter Procedures Procedure Name Priority Date/Time Associated Diagnosis Comments GLUCOSE, WHOLE BLOOD Routine 05/21/2024 1:35 PM EST URINALYSIS, COMPLETE, WITH REFLEX TO CULTURE Routine 05/21/2024 11:43 AM EST CBC WITH AUTO DIFFERENTIAL Routine 05/21/2024 11:43 AM EST MAGNESIUM Routine 05/21/2024 11:43 AM EST LIPASE Routine 05/21/2024 11:43 AM EST COMPREHENSIVE METABOLIC PANEL Routine 05/21/2024 11:43 AM EST documented in this encounter Results * (ABNORMAL) Glucose, Whole Blood (05/21/2024 1:35 PM EST) Glucose, Whole Blood 318(H) 60 - 115 mg/dL [facility] Comment:METER #: [id number] 05/21/2024 1:35 PM EST 05/21/2024 1:39 PM EST us Generic External Data Provider LAB BLOOD ORDERAB LES Final Result [facility] [address] [place] [phone] * Lipase (05/21/2024 11:43 AM EST) Pathologist [facility] Lipase 35 8 - 78 U/L [facility] 05/21/2024 11:4 3 AM EST 05/21/2024 11:49 AM EST Generic External Data Provider LAB BLOOD ORDERAB LES Final Result Performing Organization Address [facility]/ZIP Co de Phone Number [facility] [address] [place] [phone] * Magnesium (05/21/2024 11:43 AM EST) Pathologist [facility] Magnesium 2.0 1.6 - 2.6 mg/dL [facility] 05/21/2024 11:4 3 AM EST 05/21/2024 11:49 AM EST Generic External Data Provider LAB BLOOD ORDERAB LES Final Result Performing Organization Address [facility] Phone Number [facility] [address] [place] [phone] * (ABNORMAL) Comprehensive Metabolic Panel (05/21/2024 11:43 AM EST) Sodium 134(L) 135 - 145 mmol/L [facility] Potassium 4.1 3.3 - 5.1 mmol/L [facility] Chloride 107 96 - 108 mmol/L [facility] Carbon Dioxide 22 22 - 29 mmol/L [facility] Anion Gap 9(L) 12 - 20 [facility] Urea Nitrogen (BUN) 19(H) 9 - 16 mg/dL [facility] Creatinine, Serum 1.04 0.5 - 1.4 mg/dL [facility] Creatinine Clr Calc Pharmacy 74.7 [facility] Comment:eGFR (calculated fro m the MDRD study equation) and eCrCl(calculated from the Cockcroft-Gault equation) are based ondifferent parameters and may not yield comparable results.If eCrCl result is absurd, please check patient'sheight/weight. Estimated Glomerular Filt Rate >60 [facility] Comment:Chronic Kidney Disea se: Estimated GFR < 60 mL/min/1.24b1Afhghl Kidney Disease: Estimated GFR < 15 mL/min/1.73m2 Glucose 296(H) 60 - 115 mg/dL [facility] Calcium 9.0 8.4 - 10.2 mg/dL [facility] Bilirubin, Total 1.7(H) 0.0 - 1.0 mg/dL [facility] Aspartate Amino Transferase 21 5 - 37 U/L [facility] Alanine Aminotransferase 23 0 - 40 U/L [facility] Total Protein 7.4 6.5 - 8.0 g/dL [facility] Albumin Level 4.2 3.5 - 5.0 g/dL [facility] Alkaline Phosphatase 142(H) 39 - 117 U/L [facility] 05/21/2024 11:4 3 AM EST 05/21/2024 11:49 AM EST us Generic External Data Provider LAB BLOOD ORDERAB LES Final Result [facility] [address] [place] [phone] * (ABNORMAL) Urinalysis, Complete, with Reflex to Culture (05/21/2024 11:43 AM EST) Color Urine Yellow [facility] Appearance Urine Clear [facility] PH 5.5 5.0 - 9.0 [facility] Glucose Urine UA >=1000(A) Negative mg/dL [facility] Urine Blood Negative Negative [facility] Specific [place] - Urine >=1.030(H) 1.005 - 1.025 [facility] Urine Protein Negative Neg-Trace mg/dL [facility] Urine Ketones Negative Negative mg/dL [facility] Nitrite Urine Negative Negative [facility] Leukocyte Esterase Urine Negative Negative [facility] RBC Urine 0-2 0 - 2 /HPF [facility] Urine WBC 0-5 0 - 5 /HPF [facility] Urine Squamous Epithelial Cell 0-2 0 - 2 /HPF [facility] Urine Bacteria None Seen None Seen [facility] Hyaline Casts, Urine 0-2 0 - 2 /LPF [facility] 05/21/2024 11:4 3 AM EST 05/21/2024 11:49 AM EST Narrative [facility] - 05/21/2024 12:15 PM EST [id number], [employer] us Generic External Data Provider LAB URINE ORDERAB LES Final Result [facility] [address], [place] [phone] * (ABNORMAL) CBC auto differential (05/21/2024 11:43 AM EST) White Blood Count 6.1 4.8 - 10.8 X10*3/uL [facility] Red Blood Count 5.10 4.60 - 5.80 X10*6/uL [facility] Hemoglobin 15.7 14.0 - 18.0 g/dl [facility] Hematocrit 44.8 42.0 - 52.0 % [facility] Mean Corpuscular Volume 87.8 80.0 - 98.0 fL [facility] Mean Corpuscular Hemoglobin 30.8 27.0 - 33.0 pg [facility] Mean Corpuscular HGB Conc 35.0 31.0 - 36.0 g/dl [facility] Red Cell Distribution Width 12.3 11.0 - 16.0 % [facility] Platelet Count 189 160 - 400 X10*3/uL [facility] Mean Platelet Volume 10.7 9.4 - 12.4 fL [facility] Neutrophils Percent Auto 64.5 45 - 73 % [facility] Imm Gran Pct Auto 0.5(H) 0.0 - 0.4 % [facility] Lymphocytes Percent Auto 23.3 20 - 40 % [facility] Monocytes Percent Auto 6.9 2 - 11 % [facility] Eosinophils Percent Auto 4.1(H) 0 - 4 % [facility] Basophils Percent Auto 0.7 0 - 2 % [facility] NRBC Pct Auto 0.0 0.0 - 0.2 /100WBC [facility] Neutrophils Absolute Auto 3.9 2.0 - 8.3 x10*3/uL [facility] Imm Gran Abs Auto 0.03 0.00 - 0.03 X10*3/uL [facility] Lymphocytes Absolute Auto 1.4 1.2 - 4.9 X10*3/uL [facility] Monocytes Absolute Auto 0.4 0.1 - 1.2 X10*3/uL [facility] Eosinophils Absolute Auto 0.3 0.0 - 0.4 X10*3/uL [facility] Basophils Absolute Auto 0.0 0.0 - 0.2 X10*3/uL [facility] NRBC Abs Auto 0.000 0.0 - 0.012 X10*3/uL [facility] 05/21/2024 11:4 3 AM EST 05/21/2024 11:49 AM EST us Generic External Data Provider LAB BLOOD ORDERAB LES Final Result Performing Organization Address City/State/[facility] Co de Phone Number [facility] [address] [place] [phone] documented in this encounter Visit Diagnoses Not on filedocumented in this encounter Additional Health Concerns Assessment Noted Time PHQ-9 Depression Total Score: 6 07/30/19 24 10:53 AM EDT documented as of this encounter Care Teams Real Estate Associate Relationship Specialty Start Date End Date Waleska Goldberg FNP [address] [place] [address] PCP - General Family Medicine 12/12/21 Gloria Flores Nursing Service AdministratorSupervisor [employer] 03/13/23 documented as of this encounter
--- OUTSIDE RECORDS SUMMARY | 2024-05-21 19:31 | XMS_ITS | Encounter Summary ---
Author Organization [employer] Address [address] [facility] [address] [place] [address] Care Team Providers Care Journalism Professor Name Role Phone Waleska Goldberg Primary Care Provider [phone] Reason for Visit * Reason Comments Transition Of Care (Tcm) Encounter Details Date Type Department Care Team ([facility] st Contact Info) Description 05/10/2024 Patient Outreach [facility] [address] [place], [place] [phone] Waleska Goldberg FNP [address] [place] [address] Transition Of Care (Tcm) Social History Tobacco Use Types Packs/Day Years [...] AM EDT documented as of this encounter Progress Notes * Jayshree Rodrigez RN - 05/10/2024 8:45 AM EST 05/10/24 0845 Hospital Discharges and Admission for [facility] Type of Visit Emergency Department Date of Admission/Visit 05/07/24 Date of Discharge 05/07/24 Facility [facility] Diagnosis Urinary tract infection, site not specified, Benign prostatic hyperplasia without lower urinary tract symptoms, Pelvic and perineal pain, Encounter for fitting and adjustment of urinary device Disposition Discharged Home * Joselyn Simpson RN - 05/10/2024 8:45 AM EST TC placed to pt and LVM to call back the office regarding [facility] ED visit documented in this encounter Plan of Treatment Not on file documented as of this encounter Visit Diagnoses Not on filedocumented in this encounter Additional Health Concerns Assessment Noted Time PHQ-9 Depression Total Score: 6 07/30/19 24 10:53 AM EDT documented as of this encounter Care Teams Journalism Professor Relationship Specialty Start Date End Date Waleska Goldberg FNP [address] [place] [phone] PCP - General Family Medicine 12/12/21 Gloria Flores Electrical Electronics TechnicianCommunity Service Coordinator 03/13/23 documented as of this encounter
--- OUTSIDE RECORDS SUMMARY | 2024-05-21 19:31 | XMS_ITS | Encounter Summary ---
Author Organization [employer] Address [address] [facility] 7t [place] [address] Care Team Providers Care Meteorology Professor Name Role Phone Waleska Goldberg Primary Care Provider Encounter Details Date Type Department Care Team (Latest Contact Info) Description 03/24/2019 Abstract [facility] CONVERSIONS Dental, Provider, DDS Social History Tobacco Use Types Packs/Day Years Used Date Smoking Tobacco: Never Assessed Sex and Gender Information Value Date Recorded Sex Assigned at Male 02/11/2022 10:34 AM EDT Legal Sex Male 10:34 AM EDT Gender Identity Male 02/11/2022 10:34 AM EDT Sexual Orientation Choose not to disclose 2021 10:34 AM EDT documented as of this encounter Plan of Treatment Not on file documented as of this encounter Visit Diagnoses Not on filedocumented in this encounter Care Teams Meteorology Professor Relationship Specialty Start Date End Date Waleska Goldberg FNP [address] [place] [address] PCP - General Family Medicine 12/12/21 Gloria Flores Supervisor DehydrogenationCulinary Assistant 03/13/23 documented as of this encounter
--- OUTSIDE RECORDS SUMMARY | 2024-05-21 19:31 | XMS_ITS | Encounter Summary ---
Author Organization [employer] Address [address] [facility] 7t [place] [address] Care Team Providers Care Ventilated Rib Fitter Name Role Phone Waleska Goldberg Primary Care Provider [phone] Encounter Details Date Type Department Care Team ([facility] st Contact Info) Description 05/21/2024 3:30 PM EST Office Visit [facility] CHC MED & PEDS [address] [place], [place] [phone] Waleska Goldberg FNP [address] [place], [place] [phone] Chronic pelvic pain in male (Primary Dx) Social History Tobacco Use Types Packs/Day Years [...] AM EDT documented as of this encounter Last Filed Vital Signs Vital Sign Reading Time Taken Comments Blood Pressure 114/78 05/21/2024 3:33 PM EST Pulse 105 05/21/2024 3:33 PM EST Temperature 36.2 ??C (97.1 ??F) 05/21/2024 3:33 PM ES T Respiratory Rate 24 05/21/2024 3:33 PM EST Oxygen Saturation 96% 05/21/2024 3:33 PM EST Inhaled Oxygen Concentration - - Weight 77.7 kg (171 lb 4 oz) 05/21/2024 3:33 PM EST Height 172.7 cm (5' 8 ) 05/21/2024 3:33 PM EST Body Mass Index 26.04 05/21/2024 3:33 PM EST documented in this encounter Plan of Treatment Not on file documented as of this encounter Procedures Procedure Name Priority Date/Time Associated Diagnosis Comments POCT GLUCOSE Routine 05/21/2024 4:53 PM EST Chronic pelvic pain in male POCT URINALYSIS DIPSTICK Routine 05/21/2024 4:49 PM EST Chronic pelvic pain in male documented in this encounter Results * (ABNORMAL) POCT Glucose (05/21/2024 4:53 PM EST) Glucose Blood, POC 367(A) 60 - 200 mg/dL QC Media Lot # [id number] Lot# Expiration Date [id number] Blood Capillary blood specimen / Unknown 05/21/2024 4:53 PM EST Result [facility] us Waleska Goldberg [facility] POINT OF CARE TEST ENTER/EDIT ORDERABLES Final Result * POCT Urinalysis (05/21/2024 4:49 PM EST) Color, UA Yellow Clarity, UA Clear Glucose, UA 2+ 125++ Bilirubin, UA Negative Ketones, UA Negative Spec Grav, UA 1.030 Blood, UA Negative Negative, None Detected pH, UA 5.5 Protein, UA Negative Urobilinogen, UA 0.2 Leukocytes, UA Negative Negative, Rare, Trace Nitrite, UA Negative Negative, None Detected Appearance, UA clear QC Media Lot # [id number] Lot# Expiration Date [id number] Urine 05/21/2024 4:49 PM EST Waleska Goldberg [facility] POINT OF CARE TEST ENTER/EDIT ORDERABLES Final Result documented in this encounter Visit Diagnoses Diagnosis Chronic pelvic pain in male- Primary Abdominal pain, other specified site documented in this encounter Additional Health Concerns Assessment Noted Time PHQ-9 Depression Total Score: 6 07/30/19 24 10:53 AM EDT documented as of this encounter Care Teams Ventilated Rib Fitter Relationship Specialty Start Date End Date Waleska Goldberg FNP [address] [place] [address] PCP - General Family Medicine 12/12/21 Gloria Flores Freight EngineerGeoduck Diver 03/13/23 documented as of this encounter
--- OUTSIDE RECORDS SUMMARY | 2024-05-21 19:31 | XMS_ITS | Encounter Summary ---
Author Organization [employer] Address [address] [place] [address] 7t [place] [address] Care Team Providers Care Automotive Parts Manager Name Role Phone Waleska Goldberg Primary Care Provider [phone] Reason for Referral * Consultation (Urgent) - Authorized Specialty Diagnoses / Procedures Referred By Shayne rodriguez Referred To Contact Urology Diagnoses Benign prostatic hyperplasia with urinary frequency Urinary retention Waleska Goldberg FNP [address] [place] [address] Phone: tel: fax: [facility] Referral ID Status Reason Start Date Expiration Date Visits Requested Visits Authorized [id number] Authorized Specialty Services Required 05/10/2024 05/10/2025 6 6 Reason for Visit * Reason Onset Date Comments Urology Referral: Urgent 05/10/2024 Encounter Details Date Type Department Care Team ([facility] st Contact Info) Description 05/10/2024 Telephone [facility] MED & PEDS [address] [place], [place] [phone] Waleska Goldberg FNP [address] [place] [address] Urology Referral: Urgent Social History Tobacco Use Types Packs/Day Years [...] AM EDT documented as of this encounter Miscellaneous Notes * Telephone Encounter - AMERICO Lebron - 05/10/2024 2:45 PM EST 04/29/24-05/01/24: [facility] admission for BPH and urinary retention. Presented for lower abdominal pain and difficulty voiding x 3-4 days. Discharged with godfrey in place. Plan to continue Flomax and follow up with urology in 5-7 days for voiding trial. Pt was referred to [facility] Urology, but no longer able to be scheduled there due to multipleNS in the past. Will place urgent referral to other Urology using Discharge notes. If not able to be seen in a timely manner, Mr. Mcadams may return to the ED for removal of godfrey catheter. documented in this encounter Plan of Treatment Scheduled Referrals Name Type Priority Associated Diagnoses Orde r Schedule Referral to Urology Outpatient Referral Urgent Benign prostatic hyperplasia with urinary frequency Urinary retention Expected: 05/10/2024 (Approximate), Expires: 05/10/2025 documented as of this encounter Visit Diagnoses Diagnosis Benign prostatic hyperplasia with urinary frequency- Primary Urinary retention Unspecified retention of urine documented in this encounter Additional Health Concerns Assessment Noted Time PHQ-9 Depression Total Score: 6 07/30/19 24 10:53 AM EDT documented as of this encounter Care Teams Automotive Parts Manager Relationship Specialty Start Date End Date Waleska Goldberg FNP [address] [place] [address] PCP - General Family Medicine 12/12/21 Gloria Flores Rigging Loft RepairerClient Specialist 03/13/23 documented as of this encounter
--- OUTSIDE RECORDS SUMMARY | 2024-05-21 19:31 | XMS_ITS | Encounter Summary ---
Author Organization [employer] Address [address] [facility] 7t [place] [address] Care Team Providers Care Transportation Maintenance Specialist Name Role Phone Waleska Goldberg Primary Care Provider [phone] Encounter Details Date Type Department Care Team (Latest Contact Info) Description 07/10/[address] [facility] CONVERSIONS Dental, Provider, DDS Social History Tobacco [...] on filedocumented in this encounter Care Teams Transportation Maintenance Specialist Relationship Specialty Start Date End Date Waleska Goldberg FNP [address] [place] [address] PCP - General Family Medicine 12/12/21 Gloria Flores Iron PourerBox Sorter 03/13/23 documented as of this encounter
--- OUTSIDE RECORDS SUMMARY | 2024-05-21 19:31 | XMS_ITS | Encounter Summary ---
Author Organization [employer] Address [address] [facility] 7t [place] [address] Care Team Providers Care Technical Supervisor Name Role Phone Waleska Goldberg Primary Care Provider [phone] Reason for Visit * Reason Comments Med Refill Encounter Details Date Type Department Care Team (Late st Contact Info) Description 05/05/2024 Refill [facility] CHC MED & PEDS [address] [place], [place] [phone] Waleska Goldberg FNP [address] [place] [address] Fracture of left patella with routine healing Social History Tobacco Use Types Packs/Day Years [...] as of this encounter Visit Diagnoses Diagnosis Fracture of left patella with routine healing documented in this encounter Additional Health Concerns Assessment Noted Time PHQ-9 Depression Total Score: 6 07/30/19 24 10:53 AM EDT documented as of this encounter Care Teams Technical Supervisor Relationship Specialty Start Date End Date Waleska Goldberg FNP [address] [place] [address] PCP - General Family Medicine 12/12/21 Gloria Flores Watch Repairer ApprenticeLaw Firm Partner 03/13/23 documented as of this encounter
--- OUTSIDE RECORDS SUMMARY | 2024-05-21 19:31 | XMS_ITS | Encounter Summary ---
Author Organization [employer] Address [address] [facility] 7t [place] [address] Care Team Providers Care Research Program Manager Name Role Phone Waleska Goldberg Primary Care Provider [phone] Reason for Visit * Reason Onset Date Comments TC: HDF 05/06/2024 Encounter Details Date Type Department Care Team ([facility] st Contact Info) Description 05/06/2024 Telephone [facility] CHC MED & PEDS [address] [place], [place] [phone] Waleska Goldberg FNP [address] [place] [address] TC: [facility] Social History Tobacco Use Types Packs/Day Years [...] Telephone Encounter - AMERICO Lebron - 05/10/2024 3:24 PM EST Urgent urology referral placed. Hopefully they will be able to process with Hospital Discharge notes. If not able to be seen in a timely manner, Mr. Mcadams should return to ED for any godfrey concerns or urinary retention. * Telephone Encounter - Shruthi Banerjee RN - 05/07/2024 2:14 PM EST Telephone call placed to [facility] Urology. They reported that they received referral but willnot be seeing him, his chart is blocked. He has been discharged from the practice for excessive no shows in the past 2 years. Will need to be referred elsewhere. Telephone call placed to pt. Explained that PCP sent limited supply of percocet yesterday. However,going forward he will need to request from ortho as we will not be refilling it anymore. Pt agreeable to this. Also informed that I am actively working on getting him in to see a urologist and we will update him when appropriate. Pt verbalized understanding and denied having any further questions or concerns at this time. * Telephone Encounter - AMERICO Lebron - 05/06/2024 8:10 PM EST Urgent message received from team RN (see below). Reviewed message below, plan as follows: I reviewed [facility] Discharge documents and shows that he is [facility]. Please call their office to see if already have info and appt for pt. If not, I can attempt to send referral but not always able to without office notes. I sent an additional 6 tablets of Percocet 10-325mg to the pharmacy. Plan for no further refills atthis time. Please advise pt of plan above, and please let me know about Urology appt. Thanks! Team RN to ELECTRONICS DEPARTMENT MANAGER Ashlyn: Mike, Are you willing to prescribe oxy for the pt and send urgent referral to Urology for cath?? Patient is scheduled for a HDF appointment on 05/21/2024 at 2:00pm with Waleska Goldberg. CC completed the PVP screening and patient's concern is requesting more refill on Oxycodone 10-325 , only have onepill left and does not start physical therapy until 05/07/2024. Patient also requesting a urgent urology referral due to having a godfrey catheter that needs to be removed as soon as possible. Patient been to [facility] Urology specialist before. Over Short And Damage Clerk spoke with Susan pathology specialist just to see if she can get me the phone number for the Urology, per Susan was unable to find anything under referral but if patient was seen before at [facility] Urology, patient would need a referral in order to be schedule for an appointment. Message will be sent to team nurses. documented in this encounter Plan of Treatment Not on file documented as of this encounter Visit Diagnoses Diagnosis Fracture of left patella with routine healing documented in this encounter Additional Health Concerns Assessment Noted Time PHQ-9 Depression Total Score: 6 07/30/19 24 10:53 AM EDT documented as of this encounter Care Teams Research Program Manager Relationship Specialty Start Date End Date Waleska Goldberg FNP [address] [place] [address] [place] [address] PCP - General Family Medicine 12/12/21 Gloria Flores Dog Pound AttendantStrapping Machine Tender 03/13/23 documented as of this encounter
--- OUTSIDE RECORDS SUMMARY | 2024-05-21 19:31 | XMS_ITS | Encounter Summary ---
Author Organization [employer] Address [address] [facility] 7t [place] [address] Care Team Providers Care Histology Manager Name Role Phone Waleska Goldberg Primary Care Provider [phone] Reason for Visit * Reason Comments Care Coordination Outreach Encounter Details Date Type Department Care Team (Latest Contact Info) Description 05/20/2024 Patient Outreach [facility] CHC MED & PEDS [address] [place], [place] [phone] Waleska Goldberg FNP [address] [place] [address] Care Coordination (Outreach) Social History Tobacco Use Types Packs/Day Years [...] as of this encounter Progress Notes * Nichelle Garcia - 05/20/2024 3:15 PM EST CHW Nichelle Garcia , placed outbound call to patient in regards to offer services. CHW introducing herself from [facility] CM Department with CHW's name, department and direct contact [phone] requesting call back. Will re-attempt to contact within 5 days. and address not confirmed. documented in this encounter Plan of Treatment Not on file documented as of this encounter Visit Diagnoses Not on filedocumented in this encounter Additional Health Concerns Assessment Noted Time PHQ-9 Depression Total Score: 6 07/30/19 24 10:53 AM EDT documented as of this encounter Care Teams Histology Manager Relationship Specialty Start Date End Date Waleska Goldberg FNP [address] [place] [address] PCP - General Family Medicine 12/12/21 Gloria Flores Technical Support TechnicianGyroscopic Instrument Mechanic 03/13/23 documented as of this encounter
--- OUTSIDE RECORDS SUMMARY | 2024-05-21 19:31 | XMS_ITS | Encounter Summary ---
Author Organization [employer] Address [address] [facility] 7t [place] [address] Care Team Providers Care Alley Worker Name Role Phone Waleska Goldberg Primary Care Provider Reason for Visit * Reason Comments Transition Of Care (Tcm) HDF- scheduled and SDOH screening positive and Tobacco screening negative Encounter Details Date Type Department Care Team ([facility] st Contact Info) Description 05/04/2024 Patient Outreach [facility] CHC MED & PEDS [address] [place], [place] [phone] Waleska Goldberg FNP [address] [place], [place] [phone] Transition Of Care (Tcm) (HDF- scheduled and SDOH screening positive and Tobacco screening negative) Social History Tobacco Use Types Packs/Day Years [...] as of this encounter Miscellaneous Notes * Significant Event - Dina Archibald - 05/04/2024 12:15 PM EST 05/04/24 1121 Hospital Discharges and Admission for [facility] Type of Visit Hospital Admission Date of Admission/Visit 04/29/24 Date of Discharge 05/01/24 Facility [facility] Diagnosis Abdominal pain, Abdominal pain, BPH (benign prostatic hyperplasia), Urinary retention Disposition Discharged Home Follow-Up Actions Follow-Up Needed Provider appointment Follow-Up Outcome Spoke to Patient;Booked Appointment Initial Contact Date 05/04/24 JANE Cordon placed outbound call to patient for HDF outreach. Patient's name and were confirmed. Patient educated on the importance of follow up with provider following inpatient admission. Patient offered an HDF appt. Patient is agreeable to an appointment and has been scheduled for 05/21/2024 at 2:00pm with Waleska Goldberg. Insurance verified prior to scheduling. Patient advised to bring to appointment a photo id and insurance card. Patient provided with education on contacting the Health Center with any questions or concerns prior to the scheduled appointment. Patient educated on extendedclinic hours on Mondays and Wednesdays, and Walk-In Urgent Care Located in [facility]. Patient provided with after-hours line for [facility], , which offer night time triage service and optionto transfer to environmental protection specialist provider if needed. CC scanned discharge summary into patient's chart. Biggest concern for appointment at this time is requesting a Urology referral, requesting more Oxycodone,has one pill left and does not start physical therapy until 05/07/2024 and also has a godfrey catheterand needs to be removed as soon as possible. Message will be sent to team nurses. Appropriate screenings completed in anticipation of appointment. SDOH positive. Patient looking for assistance with Food insecurities: Sometimes. Referral will be placed. documented in this encounter Plan of Treatment Not on file documented as of this encounter Visit Diagnoses Not on filedocumented in this encounter Additional Health Concerns Assessment Noted Time PHQ-9 Depression Total Score: 6 07/30/19 24 10:53 AM EDT documented as of this encounter Care Teams Alley Worker Relationship Specialty Start Date End Date Waleska Goldberg FNP [address] [place] [address], [place] [address] PCP - General Family Medicine 12/12/21 Gloria Flores Machine Operator Hop PickerEmr Specialist 03/13/23 documented as of this encounter
--- OUTSIDE RECORDS SUMMARY | 2024-05-21 19:31 | XMS_ITS | Encounter Summary ---
Author Organization [employer] Address [address] [facility] [address] 7t [place] [address] Care Team Providers Care Vocational Training Teacher Name Role Phone Waleska Goldberg Primary Care Provider Encounter Details Date Type Department Care Team ([facility] st Contact Info) Description 04/23/2024 Telephone [facility] MEDICINE [address] [place] [address] Waleska Goldberg FNP [address] [place], [place] [phone] Social History Tobacco Use Types Packs/Day Years [...] before you got money to buy more: Never True 04/16/2024 Within the past 12 months,th e food you bought just didn't last and you didn't have enough money to get more: Never True 06/2024 Transportation Answer Date Recorded In the past [...] documented as of this encounter Care Teams Vocational Training Teacher Relationship Specialty Start Date End Date Waleska Goldberg FNP [address] [place] [address] PCP - General Family Medicine 12/12/21 Gloria Flores Financial Assistance SpecialistComputer Application Developer 03/13/23 documented as of this encounter
--- OUTSIDE RECORDS SUMMARY | 2024-05-21 19:31 | XMS_ITS | Encounter Summary ---
Author Organization [employer] Address [address] [facility] 7t [place] [address] Care Team Providers Care Diesel Technician Mechanic Name Role Phone Waleska Goldberg Primary Care Provider [phone] Reason for Visit * Reason Comments Care Coordination Outreach Encounter Details Date Type Department Care Team (Latest Contact Info) Description 05/06/2024 Patient Outreach [facility] CHC MED & PEDS [address] [place], [place] [phone] Waleska Goldberg FNP [address] [place] [address] Care Coordination (Outreach) Social History Tobacco Use [...] encounter Progress Notes * Nichelle Garcia - 05/06/2024 12:32 PM EST CHW Nichelle Garcia , placed outbound call to patient in regards to offer services. CHW introducing herself from [facility] CM Department with CHW's name, department and direct contact [phone] requesting call back. Will re-attempt to contact within 5 days. and address not confirmed. documented in this encounter Plan of Treatment Not on file documented as of this encounter Visit Diagnoses Not on filedocumented in this encounter Additional Health Concerns Assessment Noted Time PHQ-9 Depression Total Score: 6 07/30/19 24 10:53 AM EDT documented as of this encounter Care Teams Diesel Technician Mechanic Relationship Specialty Start Date End Date Waleska Goldberg FNP [address] [place] [address] PCP - General Family Medicine 12/12/21 Gloria Flores Foam Rubber CurerHome Performance Consultant 03/13/23 documented as of this encounter
--- OUTSIDE RECORDS SUMMARY | 2024-05-21 19:31 | XMS_ITS | Encounter Summary ---
Author Organization [email or web address] Address [address] [facility] [address] [place] [address] Care Team Providers Care Cement Finisher Apprentice Name Role Phone Waleska Goldberg AMERICO Primary Care Provider [phone] Encounter Details Date Type Department Care Team (Latest Contact Info) Description 05/21/2024 Travel Social History Tobacco Use Types Packs/Day Years [...] documented as of this encounter Care Teams Cement Finisher Apprentice Relationship Specialty Start Date End Date Waleska Goldberg FNP [address] [place] [address] PCP - General Family Medicine 12/12/21 Gloria Flores Compliance ProfessionalObservation Nurse 03/13/23 documented as of this encounter
--- OUTSIDE RECORDS SUMMARY | 2024-05-21 19:31 | XMS_ITS | Encounter Summary ---
Author Organization [employer] Address [address] [facility] 7t [place] [address] Care Team Providers Care Aircraft Engine Mechanic Supervisor Name Role Phone Waleska Goldberg Primary Care Provider [phone] Reason for Visit * Reason Onset Date Comments Hospital Follow-up 05/04/2024 Encounter Details Date Type Department Care Team ([facility] st Contact Info) Description 05/04/2024 Telephone [facility] MEDICINE [address] [place], [place] [phone] Waleska Goldberg FNP [address] [place], [place] [phone] Hospital Follow-up Social History Tobacco Use Types Packs/Day Years [...] encounter Miscellaneous Notes * Telephone Encounter - Jerman Mullins - 05/04/2024 11:07 AM EST Tc from pt requesting a HDF appt. Hospital: [facility] Date of admission: 04/29/2024 Discharge date: 05/01/2024 Diagnosed: Kidney stones , pt satated that at ER they placed a godfrey that has to be remove *Send message to [facility] Clinical Care Coordinators documented in this encounter Plan of Treatment Not on file documented as of this encounter Visit Diagnoses Not on filedocumented in this encounter Additional Health Concerns Assessment Noted Time PHQ-9 Depression Total Score: 6 07/30/19 24 10:53 AM EDT documented as of this encounter Care Teams Aircraft Engine Mechanic Supervisor Relationship Specialty Start Date End Date Waleska Goldberg FNP [address] [place] [address] PCP - General Family Medicine 12/12/21 Gloria Flores Quotation CheckerSupervisor Shearing 03/13/23 documented as of this encounter
--- OUTSIDE RECORDS SUMMARY | 2024-05-21 19:31 | XMS_ITS | Encounter Summary ---
Author Organization [employer] Address [address] [facility] 7t [place] [address] Care Team Providers Care Film Processing Supervisor Name Role Phone Waleska Goldberg Primary Care Provider [phone] Reason for Visit * Reason Comments Care Coordination Outreach Encounter Details Date Type Department Care Team (Latest Contact Info) Description 04/30/2024 Patient Outreach [facility] MED & PEDS [address] [place], [place] [phone] Waleska Goldberg FNP [address] [place] [address] Care Coordination (Outreach) Social History Tobacco Use [...] encounter Progress Notes * Nichelle Garcia - 04/30/2024 3:33 PM EST CHW Nichelle Garcia , placed outbound call to patient in regards to offer services. CHW introducing herself from [facility] CM Department with CHW's name, department and direct contact [phone] requesting call back. Will re-attempt to contact within 5 days. and address notconfirmed. documented in this encounter Plan of Treatment Not on file documented as of this encounter Visit Diagnoses Not on filedocumented in this encounter Additional Health Concerns Assessment Noted Time PHQ-9 Depression Total Score: 6 07/30/19 24 10:53 AM EDT documented as of this encounter Care Teams Film Processing Supervisor Relationship Specialty Start Date End Date Waleska Goldberg FNP [address] [place] [address] PCP - General Family Medicine 12/12/21 Gloria Flores Electrical Cad DesignerChurch Warden 03/13/23 documented as of this encounter
--- OUTSIDE RECORDS SUMMARY | 2024-05-21 19:31 | XMS_ITS | Encounter Summary ---
Author Organization [employer] Address [address] [facility] [address] [place] [address] Care Team Providers Care Manual Qa Tester Name Role Phone Waleska Goldberg Primary Care Provider [phone] Reason for Visit * Reason Comments Med Refill Encounter Details Date Type Department Care Team (Late st Contact Info) Description 09/28/2023 Refill [facility] MEDICINE [address] [place] [address] Waleska Goldberg FNP [address] [place], [place] [phone] Insomnia, unspecified type Social History Tobacco Use Types Packs/Day Years [...] housing situation today? I have cierra winston 01/27/[address] you li ve. Do you have problems with any of the following? None of the above 01/27/2023 Food Insecurity Answer Date Recorded Within the past 12 months, y ou worried that your food would run out before you got money to buy more: Sometimes True 2022 Within the past 12 months,th e food you bought just didn't last and you didn't have enough money to get more: Sometimes True 01/27/2023 Transportation Answer Date Recorded In the past 12 months, has l ack of transportation kept you from medical appts, meetings, work or from getting things needed for daily living? No 01/27/2023 Utilities Answer Date Recorded In the past 12 months, has t he electric, gas, oil or water company threatened to shut off services in your home? No 01/27/2023 Depression Answer Date Recorded Patient Health Questionnaire-2 Score 0 07/30/2023 Sex and Gender Information Value Date Recorded Sex Assigned at Male 02/11/2022 10:34 AM EDT Legal Sex Male 10:34 AM EDT Gender Identity Male 02/11/2022 10:34 AM EDT Sexual Orientation Choose not to disclose 2021 10:34 AM EDT documented as of this encounter Plan of Treatment Not on file documented as of this encounter Visit Diagnoses Diagnosis Insomnia, unspecified type documented in this encounter Additional Health Concerns Assessment Noted Time PHQ-9 Depression Total Score: 6 07/30/19 24 10:53 AM EDT documented as of this encounter Care Teams Manual Qa Tester Relationship Specialty Start Date End Date Waleska Goldberg FNP [address] [place] [id number] PCP - General Family Medicine 12/12/21 Gloria Flores Sound Effects TechnicianMolecular Pathologist 03/13/23 documented as of this encounter
--- OUTSIDE RECORDS SUMMARY | 2024-05-21 19:31 | XMS_ITS | Encounter Summary ---
Author Organization [employer] Address [address] [facility] 7[address] [place] [address] Care Team Providers Care Extractive Metallurgist Name Role Phone Waleska Goldberg Primary Care Provider [phone] Reason for Visit * Reason Onset Date Comments Med Refill 05/06/2024 Encounter Details Date Type Department Care Team (Late st Contact Info) Description 05/06/2024 Telephone [facility] MEDICINE [address] [place], [place] [phone] Waleska Goldberg FNP [address] [place], [place] [phone] Med Refill Social History Tobacco Use Types Packs/Day Years [...] encounter Miscellaneous Notes * Telephone Encounter - Khris Toney - 05/06/2024 3:16 PM EST TC from pt requesting medication refill. Medications needing refill : oxyCODONE-acetaminophen (Percocet) 10-325 MG tablet To be sent to: [facility] - [place], [place] - [address] [place] [address] documented in this encounter Plan of Treatment Not on file documented as of this encounter Visit Diagnoses Not on filedocumented in this encounter Additional Health Concerns Assessment Noted Time PHQ-9 Depression Total Score: 6 07/30/19 24 10:53 AM EDT documented as of this encounter Care Teams Extractive Metallurgist Relationship Specialty Start Date End Date Waleska Goldbegr FNP [address] [place] [address] PCP - General Family Medicine 12/12/21 Gloria Flores Bracelet Maker NoveltyPunch Press Operator Helper 03/13/23 documented as of this encounter
--- OUTSIDE RECORDS SUMMARY | 2024-05-21 19:32 | XMS_ITS | Encounter Summary ---
Author Organization [employer] Address [address] [facility] [address] [place] [address] Care Team Providers Care Copper Etcher Name Role Phone Waleska Goldberg Primary Care Provider [phone] Encounter Details Date Type Department Care Team ([facility] st Contact Info) Description 04/26/2024 Telephone [employer] [facility] [address] [place] [address] Waleska Goldberg FNP [address] [place], [place] [phone] Social History Tobacco Use Types Packs/Day Years [...] documented as of this encounter Care Teams Copper Etcher Relationship Specialty Start Date End Date Waleska Goldberg FNP [address] [place] [id number] PCP - General Family Medicine 12/12/21 Gloria Flores Automatic Washer MechanicChicken Vaccinator 03/13/23 documented as of this encounter
--- OUTSIDE RECORDS SUMMARY | 2024-05-21 19:32 | XMS_ITS | Encounter Summary ---
Author Organization [employer] Address [address] [facility] [address] [place] [address] Care Team Providers Care Auto Body Repair Technician Name Role Phone Waleska Goldberg [employer] Primary Care Provider Encounter Details Date Type Department Care Team (Latest Contact Info) Description 04/23/2024 Travel Social History Tobacco Use Types Packs/Day [...] documented as of this encounter Care Teams Auto Body Repair Technician Relationship Specialty Start Date End Date Waleska Goldberg FNP [address] [place] [address] PCP - General Family Medicine 12/12/21 Gloria Flores Unit EducatorAnesthesia Tech 03/13/23 documented as of this encounter
--- OUTSIDE RECORDS SUMMARY | 2024-05-21 19:32 | XMS_ITS | Encounter Summary ---
Author Organization [employer] Address [address] [facility] 7[address] [place] [address] Care Team Providers Care Dish Up Person Name Role Phone Waleska Goldberg Primary Care Provider [phone] Reason for Visit * Reason Onset Date Comments Referral 05/28/2022 Encounter Details Date Type Department Care Team ([facility] st Contact Info) Description 05/28/2022 Telephone [facility] MEDICINE [address] [place] [address] Waleska Goldberg FNP [address] [place] [address] Referral Social History Tobacco Use Types Packs/Day Years Used Date Smoking Tobacco: Never Smokeless Tobacco: Never Sex and Gender Information Value Date Recorded Sex Assigned at Male 02/11/2022 10:34 AM EDT Legal Sex Male 10:34 AM EDT Gender Identity Male 02/11/2022 10:34 AM EDT Sexual Orientation Choose not to disclose 2021 10:34 AM EDT COVID-19 Exposure Response Date Recorded In the last 10 days, have yo u been in contact with someone who was confirmed or suspected to have Coronavirus/COVID-19? No / Unsure 05/13/2022 10:35 AM EST documented as of this encounter Miscellaneous Notes * Telephone Encounter - Chalino Kimble - 05/28/2022 4:00 PM EST Tc from pt requesting a call back regarding Gastrology referral. documented in this encounter Plan of Treatment Not on file documented as of this encounter Visit Diagnoses Not on filedocumented in this encounter Care Teams Dish Up Person Relationship Specialty Start Date End Date Waleska Goldberg FNP [address] [place] [address] PCP - General Family Medicine 12/12/21 Gloria Flores Chief Clerk ShelterOil Pipe Inspector Helper 03/13/23 documented as of this encounter
--- OUTSIDE RECORDS SUMMARY | 2024-05-21 19:32 | XMS_ITS | Clinical Summary ---
Author Organization [email or web address] Address [address] [facility] [address] [place] [address] Care Team Providers Care Job Honer Name Role Phone Waleska Goldberg AMERICO Primary Care Provider [phone] Allergies No known active allergies Medications UltiGuard SafePack Pen Needle 32G X 4 MM miscIndications: Type 2 diabetes mellitus without complication, with long-term current use of insulin (CMS/HCC) USE DIRECTED 6 TIMES PER DAY 100 each 11 023 Active fluticasone (Flonase) 50 MCG/ACT nasal sprayIndications :Nasal congestion USE 1-2 SPRAYS IN EACH NOSTRIL DAILY NEEDED FOR NASAL CONGESTION 48 g 3 023 Active docusate sodium (Colace) 100 MG capsule TAKE 2 CAPSULES BY MOUTH EVERY DAY AT BEDTIME 023 Active doxazosin (Cardura) 4 MG tablet TAKE 1 TABLET BY MOUTH AT BEDTIME 022 Active nitroglycerin (Nitrostat) 0.[address] 1 TABLET UNDER THE TONGUE NEEDED FOR CHEST PAIN - MAY REPEAT IN 5 MINUTES TWICE. IF NO RELIEF CALL 911 OR GO TO EMERGENCY ROOM. 023 Active ranolazine (Ranexa) 500 MG 12 hr tablet TAKE 1 TABLET BY MOUTH TWICE DAILY IN THE MORNING AND AT BEDTIME 022 Active furosemide (Lasix) 20 MG tablet Take 1 tablet by mouth daily Active Continuous Blood Gluc Lubrication Technician (FreeStyle Alfredo 2 [place]) deviceIndication s:Type 2 diabetes mellitus without complication, with long-term current use of insulin (CMS/HCC) Use to check blood glucose levels throughout the day 1 each 023 Active Continuous Blood Gluc Sensor (FreeStyle Alfredo 2 Sensor) miscIndications: Type 2 diabetes mellitus without complication, with long-term current use of insulin ([facility]) Use to check blood sugar levels throughout the day 2 each 023 Active Easy Touch Lancets 33G/Twist misc TEST BLOOD SUGAR 4 TIMES A DAY 100 each 11 023 Active glucose blood (FREESTYLE LITE) test strip TEST BLOOD SUGAR FOUR TIMES DAILY AND NEEDED FOR BLOOD SUGAR < 70 mg/dL 100 strip 11 023 Active metFORMIN (Glucophage) 500 MG tabletIndication s:Type 2 diabetes mellitus without complication, with long-term current use of insulin ([facility]) TAKE 1 TABLET BY MOUTH TWICE DAILY IN THE MORNING AND IN THE EVENING WITH MEALS 180 tablet 3 024 Active atorvastatin (Lipitor) 80 MG tabletIndication s:Other hyperlipidemia TAKE 1 TABLET BY MOUTH EVERY EVENING BEFORE BED 90 tablet 3 024 Active carvedilol (Coreg) 3.125 MG tabletIndication s:Essential hypertension TAKE 1 TABLET BY MOUTH TWICE DAILY IN THE MORNING AND IN THE EVENING WITH FOOD 180 tablet 3 024 Active Blood Glucose Monitoring Suppl (FreeStyle [place] Lite) w/Device kitIndications:T ype 2 diabetes mellitus without complication, with long-term current use of insulin ([facility]) Use to test blood sugar 1-2 times daily 1 kit 024 Active baclofen (Lioresal) 10 MG tablet TAKE 1 TABLET BY MOUTH THREE TIMES DAILY IN THE MORNING, AT NOON, AND AT BEDTIME NEEDED FOR MUSCLE SPASMS 60 tablet 1 024 Active acetaminophen (Tylenol 8 Hour) 650 MG ER tablet TAKE 1 TABLET BY MOUTH EVERY 8 HOURS NEEDED FOR MILD PAIN. DO NOT BREAK, CRUSH, DISSOLVE OR CHEW 100 tablet 3 024 Active Diclofenac Sodium 1 % gelIndications:A rthralgia of hands, bilateral APPLY 2 GRAMS TOPICALLY TO HANDS 2-3 TIMES PER DAY NEEDED FOR PAIN 100 g 2 024 Active aspirin (Aspirin Low Dose) 81 MG chewable tabletIndication s:Coronary arteriosclerosis ,Chronic systolic heart failure ([facility]) TAKE 1 TABLET BY MOUTH EVERY MORNING 90 tablet 3 024 Active isosorbide mononitrate ER (Imdur) 60 MG 24 hr tabletIndication s:Coronary arteriosclerosis ,Chronic systolic heart failure (CMS/HCC) TAKE 1 TABLET BY MOUTH EVERY MORNING 90 tablet 3 Active lisinopril 2.5 MG tabletIndication s:Coronary arteriosclerosis ,Chronic systolic heart failure (CMS/HCC) TAKE 1 TABLET BY MOUTH AT BEDTIME 90 tablet 3 Active naloxone (Narcan) 4 mg/0.1 mL nasal sprayIndications :Chronic bilateral low back pain, unspecified whether sciatica present Administer 1 spray (4 mg) into affected nostril(s) if needed for opioid reversal. May repeat every 2-3 minutes if needed, alternating nostrils, until medical assistance becomes available. 2 each 1 024 2024 Active Lantus SoloStar 100 UNIT/ML penIndications:T ype 2 diabetes mellitus treated with insulin ([facility]) INJECT 30 UNITS SUBCUTANEOUSLY ONCE DAILY 15 mL 4 Active insulin aspart (NovoLOG FLEXPEN) 100 UNIT/ML penIndications:T ype 2 diabetes mellitus without complication, with long-term current use of insulin ([facility]) INJECT 6 UNITS SUBCUTANEOUSLY 3 TIMES DAILY WITH MEALS AND USE 8 UNITS IF BG>200. 30 mL 2 Active clopidogrel (Plavix) 75 MG tablet TAKE 1 TABLET BY MOUTH EVERY MORNING 90 tablet 1 Active ezetimibe (Zetia) 10 MG tablet TAKE 1 TABLET BY MOUTH EVERY MORNING 90 tablet 3 Active Fiber-Lax 625 MG tablet Take 1 tablet by mouth every 6 (six) hours during the day. Active ammonium lactate (Amlactin) 12 % creamIndications :Xerosis of skin Apply topically if needed for dry skin. Apply to feet 1-2 times per day. 140 g 3 025 2025 Active Flomax 0.4 MG 24 hr capsule Take 0.4 mg by mouth. Active oxyCODONE-acetam inophen (Percocet) 10-325 MG tabletIndication s:Chronic pelvic pain in male Take 1 tablet by mouth if needed at bedtime for severe pain for up to 6 days. 6 tablet 025 2024 Active traZODone (Desyrel) 50 MG tabletIndication s:Insomnia, unspecified type Take 1 tablet (50 mg) by mouth if needed at bedtime for sleep. 30 tablet 1 024 2024 Discontinued(R eorder (will not trigger notification to Pharmacy)) potassium citrate CR (Urocit-K-10) 10 mEq ER tablet Take 2 tablets by mouth 2 times daily. 2024 Discontinued(M ed list cleanup (will not trigger notification to Pharmacy)) finasteride (Proscar) 5 MG tablet Take 1 tablet by mouth Once per day. 024 2024 Discontinued(M ed list cleanup (will not trigger notification to Pharmacy)) oxyCODONE-acetam inophen (Percocet) 5-325 MG tabletIndication s:Fracture of left patella with routine healing Take 1 tablet by mouth every 12 (twelve) hours if needed for severe pain for up to 7 days. 14 tablet 025 2024 Discontinued(T herapy completed) oxyCODONE-acetam inophen (Percocet) 10-325 MG tabletIndication s:Fracture of left patella with routine healing Take 1 tablet by mouth every 12 (twelve) hours if needed for severe pain for up to 7 days. 14 tablet 025 2024 Discontinued(R eorder (will not trigger notification to Pharmacy)) traZODone (Desyrel) 50 MG tabletIndication s:Insomnia, unspecified type Take 1 tablet (50 mg) by mouth if needed at bedtime for sleep. 30 tablet 025 2024 Discontinued(T herapy completed) oxyCODONE-acetam inophen (Percocet) 10-325 MG tabletIndication s:Fracture of left patella with routine healing Take 1 tablet by mouth every 12 (twelve) hours if needed for severe pain for up to 3 days. 6 tablet 025 2024 Active Problems Patient Care Coordination No te Formatting of this note migh t be different from the original. C3/CM Yesenia Page RN Problem Noted Date Diagnosed Date Hyperlipidemia 04/08/2024 Closed fracture of tooth 03/02/2024 History of myocardial infarction 01/11/2024 Chronic bilateral low back pain 01/09/2024 Assessment & Plan (01/11/2024 5:21 PM EDT): - Hx of spondylitic changes and disc protrusion in cervical spine, with pain in lumbar spine described as moderate to severe, (+) radiculopathy - Lumbar MRI pending - No current red flag symptoms, reviewed ED precautions - Previous trials: prednisone, avoid NSAIDs with hx CA, APAP not effective. - Plan: short course of Percocet 5-325mg Q8H PRN severe pain. 15 tablets. Reviewed med safety and SE. Narcan sent. Assessment & Plan (01/09/2024 1:48 PM EDT): - Hx of spondylitic changes and disc protrusion in cervical spine, with pain in lumbar spine very significant at this time. (+) radiculopathy - Start prednisone - Lumbar MRI ordered for further eval - No current red flag symptoms, reviewed ED precautions Patellofemoral arthritis of left knee 08/30/2023 Overview (04/16/2024): - Followed by [facility] - Plan for trial knee sleeve and activity modification. If no improvement with conservative measures, may consider injections - Consult Jan 2024: received steroid injection. Not good surgical candidate. Assessment & Plan (01/11/2024 5:18 PM EDT): Currently described as one of most painful sites of LLE. No red flag symptoms on exam today. Called and scheduled for appt with [facility] in 2 weeks. ED precautions sooner PRN. Cervical spondylosis 07/31/2023 Overview (08/30/2023): CT July 2023 demonstrated severe spondylosis at the C5-C6 level. Multilevel facet arthropathy. MRI results from July 2023: IMPRESSION: - At C6-C7, a right foraminal disc protrusion results in severe right-sided foraminal stenosis and suspected compression of the exiting right C7 nerve root. Mild to moderate central canal stenosis at this level. - Spondylitic changes result in moderate to severe bilateral foraminal stenosis at C5-C6 and moderate left-sided foraminal stenosis at C4-C5. Disc protrusions flatten the ventral cord and mildly narrow the central canal at C3-C4 and C4-C5. - Partial loss of the left cervical vertebral artery flow void suggesting a potential significant arterial stenosis that can be further assessed with a CTA of the head and neck as indicated. - Referred to Neurosurgery on 08/12/23 Assessment & Plan (08/30/2023 10:38 AM EDT): -Message sent to referrals team 08/30/23 to follow up on pending referral Assessment & Plan (07/31/2023 8:47 PM EDT): Cont symptomatic management Reviewed ED/urgent care precautions Healthcare maintenance 05/26/2023 Overview (04/16/2024): Dental: [facility] Dental Optometry: 10/07/22: SHELBY w/o diabetic retinopathy or diabetic macular edema. Colonoscopy: 05/30/22 at [facility] - Dr. Harrison. Plan to repeat in 1-2 years d/t poor prep. Referral to re-establish with GI sent 04/16/24. Assessment & Plan (08/30/2023 10:39 AM EDT): Declines COVID & PCV20 vaccines 08/29/23 Benign prostatic hyperplasia with urinary freque ncy 05/13/2022 Assessment & Plan (07/31/2023 7:22 PM EDT): Following with [facility] - Dr. Arboleda Continues with tamsulosin 0.4mg nightly Chronic pelvic pain in male 05/13/2022 Overview (08/29/2023): -Following with [facility] -Previous recommendation for pelvic floor physical therapy (pt not interested) -Continues with intermittent, chronic pelvic pain. Currently asymptomatic -02/14/23: US retroperitoneal ordered by AMERICO Lares. 1. Nephrocalcinosis. No hydronephrosis. 2. Enlarged prostate. Mild diffuse thickening and mucosal irregularity of the bladder wall. Arthritis of first metatarso phalangeal (MTP) joint of left foot 05/10/2019 Arthritis of both hips 02/24/2019 Cyst of epididymis 09/23/2018 Depressive disorder 04/27/2018 Insomnia 04/27/2018 Assessment & Plan (08/30/2023 10:36 AM EDT): - Chronic, discussed sleep hygiene and pharmacotherapy options. - Cont trazodone PRN Assessment & Plan (07/31/2023 8:44 PM EDT): Chronic, discussed sleep hygiene and pharmacotherapy options. Shared decision making to trial trazodone PRN. Reviewed med safety and SE Chronic systolic heart failure 04/17/2018 Overview (06/16/2022): -Followed by [facility]. Dr. Esteves -Hx of cardiac catheterization in [place] due to CA that led to coronary artery bypass surgery -Had further cardiac cath in [place] in 2018 that led to stenting of OM2 branch. -Pt to continue anticoagulation and nitroglycerin as needed through Cards Coronary arteriosclerosis 04/17/2018 Diabetic neuropathy 04/17/2018 Essential hypertension 04/17/2018 Generalized ischemic myocardial dysfunction 07/2018 S/P CABG x 5 04/17/2018 Type 2 diabetes mellitus 04/17/2018 Overview (04/16/2024): -Previously followed by [facility] for management, although previous provider left and have not yet established with new provider -Reports BG readings usually ~120 fasting, and then around 100-200 throughout the day -Current regimen includes: -30 units nightly lantus -Novolog 6 units before meals -metformin 500mg BID -CGM approved, plan for initial teaching and device application 08/14/22 at [facility] Pharmacy -Podiatry: referral placed 06/05/22 -Optometry: last CEE September 2022 ([facility]) Lab Results Component Value Date HGBA1C 8.3 (A) 04/16/2024 Assessment & Plan (04/16/2024 8:55 PM EST): Above goal, reports less controlled with hospitalizations over past month. Encouraged to return to lifestyle interventions and consistency with med regimen. Follow up precautions reviewed. Assessment & Plan (01/11/2024 5:19 PM EDT): -Continue with current regimen Assessment & Plan (07/31/2023 7:21 PM EDT): -Continue with current regimen, requested new BG monitor sent to pharmacy as previous no longer working Assessment & Plan (06/16/2022 2:34 PM EST): -Continue with current regimen, CGM ordered for better eval or daytime trends Resolved Problems Problem Noted Date Diagnosed Date Resolved Date Rheumatoid arthritis involving multiple sites 08/18/1908/17/2022 Overview (08/17/2022): ?? Followed by [facility] Abdominal pain of unknown cause 05/13/2022 08/30/2023 UTI symptoms 05/13/2022 06/16/2022 Pain in joint of left shoulder 11/19/2018 06/16/2022 Inguinal lymphadenopathy 08/27/201808/2022 Trigger ring finger of right hand 06/08/2018 06/16/2022 Encounters Date Type Department Care Team Description 05/21/2024 3:30 PM EST Office Visit [facility] [address] [place] [address] Waleska Goldberg FNP Chronic pelvic pain in male (Primary Dx) 05/21/2024 Travel 05/21/2024 Orders Only GENERIC EXTERNAL DATA DEPARTMENT Provider, Generic External Data 05/20/2024 Patient Outreach [facility] [address] [place] [address] Waleska Goldberg FNP Care Coordination (Outreach) 05/10/2024 Telephone [facility] [address] [place] [address] Waleska Goldberg FNP Urology Referral: Urgent 05/10/2024 Patient Outreach [facility] [address] [place] [address] Waleska Goldberg FNP Transition Of Care (Tcm) 05/06/2024 Telephone [facility] [address] [place] [address] Waleska Goldberg FNP TC: HDF 05/06/2024 Telephone [facility] [address] [place] [phone] Waleska Goldberg FNP Med Refill 05/06/2024 Patient Outreach [facility] [address] [place] [address] Waleska Goldberg FNP Care Coordination (Outreach) 05/05/2024 Refill [facility] [address] [place] [address] Waleska Goldberg FNP Fracture of left patella with routine healing 05/04/2024 Patient Outreach [facility] [address] [place] [address] Waleska Goldberg FNP Transition Of Care (Tcm) (HDF- scheduled and SDOH screening positive and Tobacco screening negative) 05/04/2024 Telephone [facility] [address] [place] [phone] Waleska Goldberg FNP Hospital Follow-up 04/30/2024 Patient Outreach [facility] [address] [place] [address] Waleska Goldberg FNP Care Coordination (Outreach) 04/26/2024 Telephone [facility] [address] [place] [phone] Walesak Goldberg FNP 04/23/2024 2:30 PM EST Telemedicine [facility] [address] [place] [address] Waleska Goldberg FNP Fracture of left patella with routine healing (Primary Dx); Insomnia, unspecified type 04/23/2024 Telephone [facility] [address] [place] [phone] Waleska Goldberg FNP 04/23/2024 Travel 04/19/2024 Telephone [facility] [address] [place] [phone] Waleska Goldberg FNP 04/19/2024 Telephone [facility] [address] [place] [address] Waleska Goldberg FNP 04/16/2024 2:00 PM EST Office Visit [facility] [address] [place] [address] Waleska Goldberg FNP Cellulitis of right foot (Primary Dx); Fracture of left patella with routine healing; Type 2 diabetes mellitus without complication, with long-term current use of insulin ([facility]); Healthcare maintenance; Colon cancer screening; Xerosis of skin 04/16/2024 Orders Only [facility] [address] [place] [address] ProviderAleisha MD 04/16/2024 Travel 04/15/2024 Telephone [facility] [address] [place] [phone] Luann Muñiz MA Chart Prep 04/02/[address] [address] Shruthi Banerjee, sharepoint trainer 03/29/2024 Patient Outreach [facility] [address] [place] [phone] Waleska Goldberg FNP Pre-visit Planning (HDF scheduled, SDOH unable to complete. ) 03/19/2024 Telephone [facility] [address] [place] [address] Waleska Goldberg FNP Nurse Triage 03/16/2024 Refill [facility] [address] [place] [phone] Waleska Goldberg FNP 03/15/2024 Telephone [facility] [address] [place] [phone] Luann Muñiz MA Chart Prep 03/04/2024 8:00 AM EST Office Visit [facility] [address] [place] [address] Sarita Mckee, DDS Loss of retention of dental crown (Primary Dx); Tooth missing 03/02/2024 8:00 AM EST Office Visit [facility] [address] [place] [address] Weston Phillips, LINDA Closed fracture of tooth, sequela (Primary Dx) 02/25/2024 Telephone [facility] [address], [place] [phone] Aileen Ford RN 02/23/2024 Refill [facility] [address], [place] [phone] Anaarcelia Waleska, [employer] Type 2 diabetes mellitus without complication, with long-term current use of insulin ([facility]) 02/19/2024 Refill [facility] [address], [place] [phone] Ashlyn Waleska, [employer] Type 2 diabetes mellitus treated with insulin ([facility]) from Last 3 Months Immunizations Name Administration Dates Next Due Influenza injectable quadrivalent preservative f ree 01/04/2019,04/17/2018 Influenza, IIV3, injectable 01/04/2019 Pneumococcal Polysaccharide PPSV23 06/12/2018, TD (adult), 2 Lf tetanus tox oid, preservative free, adsorbed 12/28/2018 Td (adult), unspecified 12/28/2018 Tdap 07/14/2023 Social History Tobacco Use Types Packs/Day Years Used Date Smoking Tobacco: Never Smokeless Tobacco: Never Tobacco Cessation:Counseling Given: Not Answered Alcohol Use Standard Drinks/Week Comments Never 0 [...] not to disclose 2021 10:34 AM EDT Last Filed Vital Signs Vital Sign Reading [...] Mass Index 26.04 05/21/2024 3:33 PM EST Plan of Treatment Health Maintenance Due Date Last Done Comments CT Colonography 1965 FIT DNA/Cologuard 1965 FIT 1965 FOBT 1965 HIV Screening 1965 Sigmoidoscopy 1965 Diabetes: Foot Exam 1975 Hepatitis C Screening 1983 Hepatitis B Vaccines (1 of 3 - 19+ 3-dose series) 1984 Zoster Vaccines (1 of 2) 2015 Pneumococcal Vaccine: 50+ Years (2 of 2 - PCV) 06/13/2019 06/12/2018, 04/17/2018 Lipid Panel 05/07/2022 05/07/2021 Diabetes: Urine Protein Screening 08/06/2022 08/06/2021, 05/07/2021 Dental Oral Exam 03/09/2023 09/05/2022 COVID-19 Vaccine ( season) 2023 07/21/2020, 06/23/2020 Influenza Vaccine (#1) 2023 9, 01/04/2019, 04/17/2018 Dental Prophylaxis 12/28/2023 06/26/2023 Colonoscopy 05/30/2024 05/30/2022 Colorectal Cancer Screening 05/30/2024 Dental X-Ray: Bitewings 06/26/2024 06/26/2023, 08/15 Diabetes: Hemoglobin A1C 07/15/2024 025, 01/02/2024, 07/30/2023, Additional history exists Depression Screening 07/29/2024 07/30/2023, 07/30/19 Eye Exam 10/07/2024 10/07/2022, 09/13, 10/07/2022, Additional history exists Alcohol/Substance Use Screening 04/16/2025 04/16/2024 SDOH Screening 05/04/2025 05/04/2024 Tobacco Screening 05/21/2025 05/21/2024 Dental X-Ray: Full Mouth 06/26/2026 06/26/2023 DTaP/Tdap/Td Vaccines (2 - Td or Tdap) 07/13/2033 07/14/2023, 12/28/2018, 12/28/2018 RSV Patients and Patients Aged 60 years or older (1 - 1-dose 75+ series) 2040 HIB Vaccines Aged Out No longer eligi ble based on patient's age to complete this topic HPV Vaccines Aged Out No longer eligi ble based on patient's age to complete this topic Hepatitis A Vaccines Aged Out No long er eligible based on patient's age to complete this topic IPV Vaccines Aged Out No longer eligi ble based on patient's age to complete this topic Meningococcal Vaccine Aged Out No gui briana eligible based on patient's age to complete this topic RSV under 20 months Aged Out No longe r eligible based on patient's age to complete this topic Rotavirus Vaccines Aged Out No longer eligible based on patient's age to complete this topic Procedures Procedure Name Priority Date/Time Associated Diagnosis Comments POCT GLUCOSE Routine 05/21/2024 4:53 PM EST Chronic pelvic pain in male POCT URINALYSIS DIPSTICK Routine 05/21/2024 4:49 PM EST Chronic pelvic pain in male GLUCOSE, WHOLE BLOOD Routine 05/21/2024 1:35 PM EST LIPASE Routine 05/21/2024 11:43 AM EST MAGNESIUM Routine 05/21/2024 11:43 AM EST COMPREHENSIVE METABOLIC PANEL Routine 05/21/2024 11:43 AM EST URINALYSIS, COMPLETE, WITH REFLEX TO CULTURE Routine 05/21/2024 11:43 AM EST CBC WITH AUTO DIFFERENTIAL Routine 05/21/2024 11:43 AM EST POCT GLYCATED HEMOGLOBIN, TOTAL Routine 04/16/2024 2:38 PM EST Type 2 diabetes mellitus without complication, with long-term current use of insulin ([facility]) POCT GLUCOSE Routine 04/16/2024 2:35 PM EST Type 2 diabetes mellitus without complication, with long-term current use of insulin ([facility]) BLOOD CULTURE (SECOND) Routine 12:07 AM EST LACTIC ACID Routine 03/20/2024 12:05 AM EST BLOOD CULTURE (FIRST) Routine 03/20/2024 12:05 AM EST SED RATE BY MODIFIED WESTERGREN Routine 03/19/2024 11:08 PM EST C-REACTIVE PROTEIN Routine 03/19/2024 11 :08 PM EST COVID-19 ID NOW (VU) Routine 03/19/2024 11:08 PM EST URIC ACID Routine 03/19/2024 11:08 PM EST COMPREHENSIVE METABOLIC PANEL Routine 03/19/2024 11:08 PM EST CBC WITH AUTO DIFFERENTIAL Routine 03/19/2024 11:08 PM EST INFLUENZA A B2 ID NOW ([employer]) Routine 03/19/2024 11:08 PM EST XR KNEE 3 VIEWS LEFT Routine 03/04/2024 2:[address] HEAD WO CONTRAST Routine 03/04/2024 1 :49 PM EST XR SHOULDER 2+ VIEWS LEFT Routine 03/04/2024 1:09 PM EST XR ELBOW 3+ VIEWS LEFT Routine 1:09 PM EST XR CLAVICLE LEFT Routine 03/04/2024 1:[address] CERVICAL SPINE WO CONTRAST Routine 03/04/2024 1:09 PM EST ADJUNCTIVE GENERAL SERVICES - PROFESSIONAL VISITS - CASE PRESENTATION, SUBSEQUENT TO DETAILED AND EXTENSIVE TREATMENT PLANNING Routine 03/04/2024 8:00 AM EST Loss of retention of dental crown Tooth missing 9 ADD TOOTH TO EXISTING PARTIAL DENTURE Routine 03/04/2024 8:00 AM EST Tooth missing 6 RE-CEMENT OR RE-KERN CROWN Routine 03/04/2024 8:00 AM EST Loss of retention of dental crown ADJUNCTIVE GENERAL SERVICES - PROFESSIONAL VISITS - CASE PRESENTATION, SUBSEQUENT TO DETAILED AND EXTENSIVE TREATMENT PLANNING Routine 03/02/2024 8:00 AM EST DENTURE IMPRESSION Routine 03/02/2024 8: 00 AM EST 9 EXTRACTION, ERUPTED TOOTH OR EXPOSED ROOT (ELEVATION AND/OR FORCEPS REMOVAL) Routine 03/02/2024 8:00 AM EST MR LOWER EXTREMITY JOINT WO CONTRAST LEFT Routine 02/28/2024 9:42 AM EST MR LUMBAR SPINE WO CONTRAST Routine 02/28/2024 9:21 AM EST Chronic bilateral low back pain, unspecified whether sciatica present PROPHYLAXIS - ADULT Routine 06/26/2023 8 :00 AM EDT Dental calculus DIAGNOSTIC - DIAGNOSTIC IMAGING - INTRAORAL - COMPREHENSIVE SERIES OF RADIOGRAPHIC IMAGES Routine 06/26/2023 8:00 AM EDT PERIODIC ORAL EVALUATION - ESTABLISHED PATIENT Routine 09/05/2022 9:30 AM EDT Encounter for dental examination Dental caries Malocclusion Bruxism HM COLONOSCOPY Routine 05/30/2022 9:04 PM EST ZZZ HISTORICAL MICROALBUMIN/CREATININ E RATIO, RANDOM URINE Routine 08/06/2021 8:19 AM EDT ZZ HISTORICAL LIPID PANEL Routine 05/07/2021 9:10 AM EST from Last 3 Months or Most Recently Relevant to Health Maintenance Results * (ABNORMAL) POCT Glucose (05/21/2024 4:53 PM EST) Only the most recent of2 resultswithin the time period is included. Glucose Blood, POC 367(A) 60 - 200 mg/dL QC Media Lot # [id number] Lot# Expiration Date 48 Blood Capillary blood specimen / Unknown 05/21/2024 4:53 PM EST Waleska Goldberg [facility] POINT OF CARE TEST ENTER/EDIT ORDERABLES Final [...] Media Lot # [id number] Lot# Expiration Date ,025 Urine 05/21/2024 4:49 PM EST us Waleska Goldberg [employer] POINT OF CARE TEST ENTER/EDIT ORDERABLES Final Result * (ABNORMAL) Glucose, Whole Blood (05/21/2024 1:35 PM EST) Glucose, Whole Blood 318(H) 60 - 115 mg/dL [facility] Comment:METER #: [id number] 05/21/2024 1:35 PM EST 05/21/2024 1:39 PM EST us Generic External Data Provider LAB BLOOD ORDERAB LES Final Result Performing Organization Address City/State/[facility] Co de Phone Number [facility] [address] [place] [phone] * (ABNORMAL) Urinalysis, Complete, with Reflex to Culture (05/21/2024 11:43 AM EST) Color Urine Yellow [facility] Appearance Urine Clear [facility] PH 5.5 5.0 - 9.0 [facility] Glucose Urine UA >=1000(A) Negative mg/dL [facility] Urine Blood Negative Negative [facility] Specific Brooks - Urine >=1.030(H) 1.005 - 1.025 [facility] Urine Protein Negative Neg-Trace mg/dL [facility] Urine Ketones Negative Negative mg/dL [facility] Nitrite Urine Negative Negative [facility] Leukocyte Esterase Urine Negative Negative [facility] RBC Urine 0-2 0 - 2 /HPF [facility] Urine WBC 0-5 0 - 5 /HPF [facility] Urine Squamous Epithelial Cell 0-2 0 - 2 /HPF [facility] Urine Bacteria None Seen None Seen [facility] Hyaline Casts, Urine 0-2 0 - 2 /LPF [facility] 05/21/2024 11:4 3 AM EST 05/21/2024 11:49 AM EST Narrative [facility] - 05/21/2024 12:15 PM EST [id number], Clean Catch us Generic External Data Provider LAB URINE ORDERAB LES Final Result [facility] [address] [place] [phone] * (ABNORMAL) CBC auto differential (05/21/2024 11:43 AM EST) Only the most recent of2 resultswithin the time period is included. White Blood Count 6.1 4.8 - 10.8 X10*3/uL [facility] Red Blood Count 5.10 4.60 - 5.80 X10*6/uL [facility] Hemoglobin 15.7 14.0 - 18.0 g/dl [facility] Hematocrit 44.8 42.0 - 52.0 % [facility] Mean Corpuscular Volume 87.8 80.0 - 98.0 fL [facility] Mean Corpuscular Hemoglobin 30.8 27.0 - 33.0 pg [facility] Mean Corpuscular HGB Conc 35.0 31.0 - 36.0 g/dl [facility] Red Cell Distribution Width 12.3 11.0 - 16.0 % [facility] Platelet Count 189 160 - 400 X10*3/uL [facility] Mean Platelet Volume 10.7 9.4 - 12.4 fL [facility] Neutrophils Percent Auto 64.5 45 - 73 % [facility] Imm Gran Pct Auto 0.5(H) 0.0 - 0.4 % [facility] Lymphocytes Percent Auto 23.3 20 - 40 % [facility] Monocytes Percent Auto 6.9 2 - 11 % [facility] Eosinophils Percent Auto 4.1(H) 0 - 4 % [facility] Basophils Percent Auto 0.7 0 - 2 % [facility] NRBC Pct Auto 0.0 0.0 - 0.2 /100WBC [facility] Neutrophils Absolute Auto 3.9 2.0 - 8.3 x10*3/uL [facility] Imm Gran Abs Auto 0.03 0.00 - 0.03 X10*3/uL [facility] Lymphocytes Absolute Auto 1.4 1.2 - 4.9 X10*3/uL [facility] Monocytes Absolute Auto 0.4 0.1 - 1.2 X10*3/uL [facility] Eosinophils Absolute Auto 0.3 0.0 - 0.4 X10*3/uL [facility] Basophils Absolute Auto 0.0 0.0 - 0.2 X10*3/uL [facility] NRBC Abs Auto 0.000 0.0 - 0.012 X10*3/uL [facility] 05/21/2024 11:4 3 AM EST 05/21/2024 11:49 AM EST us Generic External Data Provider LAB BLOOD ORDERAB LES Final Result Performing Organization Address [facility]/ZIP Co de Phone Number [facility] [address] [place] [phone] * Magnesium (05/21/2024 11:43 AM EST) Magnesium 2.0 1.6 - 2.6 mg/dL [facility] 05/21/2024 11:4 3 AM EST 05/21/2024 11:49 AM EST Generic External Data Provider LAB BLOOD ORDERAB LES Final Result Performing Organization Address [facility] Co de Phone Number [facility] [address] [place] [phone] * Lipase (05/21/2024 11:43 AM EST) Lipase 35 8 - 78 U/L [facility] 05/21/2024 11:4 3 AM EST 05/21/2024 11:49 AM EST us Generic External Data Provider LAB BLOOD ORDERAB LES Final Result [facility] [address] [place] [phone] * (ABNORMAL) Comprehensive Metabolic Panel (05/21/2024 11:43 AM EST) Only the most recent of2 resultswithin the time period is included. Sodium 134(L) 135 - 145 mmol/L [facility] Potassium 4.1 3.3 - 5.1 mmol/L [facility] Chloride 107 96 - 108 mmol/L [facility] Carbon Dioxide 22 22 - 29 mmol/L [facility] Anion Gap 9(L) 12 - 20 [facility] Urea Nitrogen (BUN) 19(H) 9 - 16 mg/dL [facility] Creatinine, Serum 1.04 0.5 - 1.4 mg/dL [facility] Creatinine Clr Calc Pharmacy 74.7 [facility] Comment:eGFR (calculated fro m the MDRD study equation) and eCrCl(calculated from the Cockcroft-Gault equation) are based ondifferent parameters and may not yield comparable results.If eCrCl result is absurd, please check patient'sheight/weight. Estimated Glomerular Filt Rate >60 [facility] Comment:Chronic Kidney Disea se: Estimated GFR < 60 mL/min/1.40e7Qgiqsw Kidney Disease: Estimated GFR < 15 mL/min/1.73m2 Glucose 296(H) 60 - 115 mg/dL [facility] Calcium 9.0 8.4 - 10.2 mg/dL [facility] Bilirubin, Total 1.7(H) 0.0 - 1.0 mg/dL [facility] Aspartate Amino Transferase 21 5 - 37 U/L [facility] Alanine Aminotransferase 23 0 - 40 U/L [facility] Total Protein 7.4 6.5 - 8.0 g/dL [facility] Albumin Level 4.2 3.5 - 5.0 g/dL [facility] Alkaline Phosphatase 142(H) 39 - 117 U/L [facility] 05/21/2024 11:4 3 AM EST 05/21/2024 11:49 AM EST Generic External Data Provider LAB BLOOD ORDERAB LES Final Result Performing Organization Address [facility] Co de Phone Number [facility] [address] [place] [phone] * (ABNORMAL) POCT HGB A1C (04/16/2024 2:38 PM EST) Hemoglobin A1C 8.3(A) 4.0 - 6.0 % QC Media Lot # [id number] Lot# Expiration Date [id number] Blood 04/16/2024 2:38 PM EST us Waleska Goldberg [employer] POINT OF CARE TEST ENTER/EDIT ORDERABLES Final Result * Blood Culture (Second) (03/20/2024 12:07 AM EST) Blood Venous blood specimen / Unknown 03/20/2024 12:07 AM EST 03/20/2024 12:10 AM EST Comment:Blood [facility] - 03/25/2024 2:10 AM EST Blood Culture (Second) No growth after 5 days. Specimen Source: Blood Generic External Data Provider LAB MICROBIOLOGY - GENERAL ORDERABLES Final Result Performing Organization Address [facility] Co de Phone Number [facility] [address] [place] [phone] * Blood Culture (First) (03/20/2024 12:05 AM EST) Blood Venous blood specimen / Unknown 03/20/2024 12:05 AM EST 03/20/2024 12:10 AM EST Comment:Blood [facility] - 03/25/2024 2:10 AM EST Blood Culture (First) No growth after 5 days. Specimen Source: Blood us Generic External Data Provider LAB MICROBIOLOGY - GENERAL ORDERABLES Final Result Performing Organization Address City/[facility]/ZIP Co de Phone Number [facility] [address] [place] [phone] * Lactic Acid (03/20/2024 12:05 AM EST) Lactic Acid 1.3 0.5 - 2.0 mmol/L [facility] 03/20/2024 12:0 5 AM EST 03/20/2024 12:10 AM EST Generic External Data Provider LAB BLOOD ORDERAB LES Final Result Performing Organization Address [facility] Co de Phone Number [facility] [address] [place] [phone] * Influenza A B2 ID NOW ([employer]) (03/19/2024 11:08 PM EST) IDNOW SERIAL# [id number] [facility] Influenza A Negative Negative [facility] Influenza B2 Negative Negative [facility] Influenza A B2 Note See Note [facility] Comment:The [employer] ID NOW In fluenza A B2 test is used for thequalitative detection of influenza A and B from patientswith signs and symptoms of respiratory infection.Negative results do not preclude influenza virus infectionand should not be used as the sole basis for diagnosis,treatment or other patient management decisions.There is a risk of false negative results due to thepresence of variants in the viral targets of the assay, lowlevels of virus in the specimen and co- infection withRespiratory Syncytial Virus. 03/19/2024 11:0 8 PM EST 03/19/2024 11:14 PM EST Generic External Data Provider LAB MICROBIOLOGY - GENERAL ORDERABLES Final Result Performing Organization Address [facility] Co de Phone Number [facility] [address] [place] [phone] * COVID-19 ID NOW ([employer]) (03/19/2024 11:08 PM EST) IDNOW SERIAL# [id number] [facility] COVID-19 TEST Negative Negative [facility] COVID-19 NOTE See Note [facility] Comment: Results are for the identification of SARS-CoV2 RNA. TheSARS-CoV2 RNA is generally detectable in respiratory samplesduring the acute phase of infection. Positive results areindicative of the presence of SARS-CoV-2 RNA; clinicalcorrelation with patient history and other diagnosticinformation is necessary to determine patient infectionstatus. Positive results do not rule out bacterial infectionor co- infection with other viruses.Testing facilities within the [facility] and [facility] are required to report all positive results tothe appropriate public health authorities.Negative results should be treated as presumptive and, ifinconsistent with clinical signs and symptoms or necessaryfor patient management, should be tested with differentauthorized or cleared molecular tests. Negative results donot preclude SARS-CoV2 RNA infection and should not be usedas the sole basis for patient management decisions. Negativeresults should be considered in the context of a patient'srecent exposures, history and the presence of clinical signsand symptoms consistent with COVID-19.This test has been authorized by the FDA under an EmergencyUse Authorization (EUA) for use by authorized laboratories.Testing performed on the [employer] NOW utilizing NAAT. 03/19/2024 11:0 8 PM EST 03/19/2024 11:11 PM EST us Generic External Data Provider LAB MOLECULAR FRANCHESCA GNOSTICS ORDERABLES Final Result [facility] [address] [place] [phone] * Sed Rate by Modified Brennaren (03/19/2024 11:08 PM EST) Pathologist [facility] Erythrocyte Sedimentation Rate 5 0 - 15 MM/HR [facility] Comment:Patients with polycy themia and many hemoglobin abnormalitiesmay have depressed sed rates whereas patients with anemiamay have elevated sed rates. 03/19/2024 11:0 8 PM EST 03/19/2024 11:47 PM EST us Generic External Data Provider LAB BLOOD ORDERAB LES Final Result Performing Organization Address [facility] de Phone Number [facility] [address] [place] [phone] * (ABNORMAL) C-reactive Protein (03/19/2024 11:08 PM EST) C Reactive Protein 0.62(H) < or = 0.50 mg/dL [facility] 03/19/2024 11:0 8 PM EST 03/19/2024 11:11 PM EST us Generic External Data Provider LAB BLOOD ORDERAB LES Final Result Performing Organization Address [facility] Phone Number [facility] [address] [place] [address] [phone] * Uric acid (03/19/2024 11:08 PM EST) Uric Acid 4.1 3.4 - 7.0 mg/dL [facility] 03/19/2024 11:0 8 PM EST 03/19/2024 11:11 PM EST Generic External Data Provider LAB BLOOD ORDERAB LES Final Result Performing Organization Address [facility] Phone Number [facility] [address] [place] [phone] * XR Knee 3 Views Left (03/04/2024 2:02 PM EST) Anatomical Region Laterality Modality Lower Extremities, Knee Left Radiogra phic Imaging 03/04/2024 2:02 PM EST Narrative 03/04/2024 3:45 PM EST ? [facility] ?[address] ?[place] [address] ?XRay Report ? Signed ? Patient: Mcadams Hickman,Celso ?MR#: MM ?? [id number] ? : 1965 ?Acct:[id number] ? Age/Sex: 58 / M ?ADM Date: 03/04/24 ? Loc: HO.ED ? Attending Dr: ? Ordering Physician: Jennifer Coleman ?? Date of Service: 03/04/24 ?? Procedure(s): XR knee LT 3V ?? Accession Number(s): [id number] ? cc: Jennifer Coleman; Waleska Goldberg ? EXAMINATION: ?? XR KNEE, LEFT ? CLINICAL INFORMATION: ?? pain, fall ? COMPARISON: ?? August 28, 2023 ? TECHNIQUE: ?? Four views of the left knee. ? FINDINGS: ?? No acute cortical disruption or malalignment. No suprapatellar bursa ?? joint effusion. Asymmetric joint space narrowing involving the medial ?? compartment. ?? Exostosis at the quadriceps tendon insertion and the patella tendon ?? insertion. Focal well-corticated calcification in the inferior patella ?? tendon near the anterior tibial tuberosity. ?? Multiple vascular clips in the medial aspect of the left lower ?? extremity. Vascular calcifications. ?? No lytic or blastic lesions. ? XR/XR knee LT 3V ?? IMPRESSION: ?? No acute fracture or dislocation. ? Electronically signed by: ??Kane Moncada MD ??03/04/2024 03:42 PM ?? EST RP ? Dictated By: ?Kane Gutiérrez MD ? Signed By: ?<Electronically signed by Kane Banerjee MD in OV> ? 03/04/24 1542 ? DD/ 1402 ? TD/TT: 03/04/24 1410 ? [employer]: ? Procedure Note Esther, Image - 03/04/[address] [address] XRay Report Signed Patient: Barrett Goldman [facility]#: [id number] : 1965Acct:[id number] Age/Sex: 58 / MADM Date: 03/04/24 Loc: HO.ED Attending Dr: Ordering Physician: Jennifer Coleman Date of Service: 03/04/24 Procedure(s): XR knee LT 3V Accession Number(s): [id number] cc: Jennifer Coleman; Waleska Goldberg EXAMINATION: XR KNEE, LEFT CLINICAL INFORMATION: pain, fall COMPARISON: August 28, 2023 TECHNIQUE: Four views of the left knee. FINDINGS: No acute cortical disruption or malalignment. No suprapatellar bursa joint effusion. Asymmetric joint space narrowing involving the medial compartment. Exostosis at the quadriceps tendon insertion and the patella tendon insertion. Focal well-corticated calcification in the inferior patella tendon near the anterior tibial tuberosity. Multiple vascular clips in the medial aspect of the left lower extremity. Vascular calcifications. No lytic or blastic lesions. XR/XR knee LT 3V IMPRESSION: No acute fracture or dislocation. Electronically signed by: Kane Moncada MD 03/04/2024 03:42 PM EST RP Dictated By: Kane Gutiérrez MD Signed By: <Electronically signed by Kane Banerjee MDin OV> 03/04/24 1542 DD/ 1402 TD/TT: 03/04/24 1410 [employer]: [facility] External Provider IMG XR PROCEDURES Final Result * CT Head w/o Contrast (03/04/2024 1:49 PM EST) Anatomical Region Laterality Modality Head, Neck Computed Tomogra phy 03/04/2024 1:49 PM EST Narrative 03/04/2024 2:55 PM EST ? [facility] ?[address] ?[place] [address] ? CT Scan Report ? Signed ? Patient: Barrett Goldman ?MR#: MM ?? [id number] ? : 1965 ?Acct:[id number] ? Age/Sex: 58 / M ?ADM Date: 11/21/24 ? Loc: HO.ED ? Attending Dr: ? Ordering Physician: Jennifer Coleman ?? Date of Service: 03/04/24 ?? Procedure(s): CT head/brain wo IV con ?? Accession Number(s): [id number] ? cc: Jennifer Coleman; Waleska Goldberg ? EXAMINATION: ?? CT HEAD WITHOUT CONTRAST ? CLINICAL INFORMATION: ?? fall, +head strike ? COMPARISON: ?? CT dated July 14, 2023. ? TECHNIQUE: ?? Contiguous axial imaging was performed from the skull base to vertex ?? without intravenous administration of contrast. ? This CT examination was performed using dose optimization techniques as ?? appropriate, variously including the following: ?? *Automated exposure control ?? *Adjustment of mA and/or kV according to patient size (this includes ?? techniques or standardized protocols for targeted exams where dose is ?? matched to indication/reason for exam; i.e. extremities or head) ?? *Use of iterative reconstruction technique ? DLP: ?? 659 mGy-cm ? FINDINGS: ?? Soft tissue contusion, superior left parietal. ?? Bony calvarium is intact. ?? Skull base is intact. ?? Old traumatic deformity, nasal bones and likely left lamina papyracea. ?? No acute intracranial hemorrhage, mass effect, midline shift, ?? hydrocephalus or herniation. ?? Fernández-white matter differentiation is normal. ?? Posterior cranial fossa contents demonstrated no acute intracranial ?? hemorrhage or mass effect. ?? Sellar/suprasellar region demonstrated no gross hemorrhage or mass. ?? Craniocervical junction is intact. ?? Calcified plaques in the cavernous supracavernous segments both ICAs. ?? No air-fluid levels in the included paranasal sinuses. Retention cysts ?? versus polyp, right maxillary sinus. Mucosal thickening, ethmoid air ?? cells and right maxillary sinus. ?? Tympanic cavities and mastoid cells are aerated. ? CT/CT head/brain wo IV con ?? IMPRESSION: ?? Soft tissue contusion/hematoma left parietal. ?? No acute fracture or bony calvarium. ?? No acute intracranial hemorrhage. ?? Acute on chronic right maxillary sinus disease. ? Electronically signed by: ??Kane Moncada MD ??03/04/2024 02:52 PM ?? EST RP ? Dictated By: ?Kane Gutiérrez MD ? Signed By: ?<Electronically signed by Kane Banerjee MD in OV> ? 03/04/24 1452 ? DD/ 1349 ? TD/TT: 03/04/24 1349 ? [employer]: ? Procedure Note Donotuseinterpreter, Image - 03/04/[address] [address] [address] Scan Report Signed Patient: Barrett Goldman [facility]#: [id number] : 1965Acct:[id number] Age/Sex: 58 / MADM Date: 03/04/24 Loc: HO.ED Attending Dr: Ordering Physician: Jennifer Coleman Date of Service: 03/04/24 Procedure(s): CT head/brain wo IV con Accession Number(s): [id number] cc: Jennifer Coleman; Waleska Goldberg EXAMINATION: CT HEAD WITHOUT CONTRAST CLINICAL INFORMATION: fall, +head strike COMPARISON: CT dated July 14, 2023. TECHNIQUE: Contiguous axial imaging was performed from the skull base to vertex without intravenous administration of contrast. This CT examination was performed using dose optimization techniques as appropriate, variously including the following: *Automated exposure control *Adjustment of mA and/or kV according to patient size (this includes techniques or standardized protocols for targeted exams where dose is matched to indication/reason for exam; i.e. extremities or head) *Use of iterative reconstruction technique DLP: 659 mGy-cm FINDINGS: Soft tissue contusion, superior left parietal. Bony calvarium is intact. Skull base is intact. Old traumatic deformity, nasal bones and likely left lamina papyracea. No acute intracranial hemorrhage, mass effect, midline shift, hydrocephalus or herniation. Fernández-white matter differentiation is normal. Posterior cranial fossa contents demonstrated no acute intracranial hemorrhage or mass effect. Sellar/suprasellar region demonstrated no gross hemorrhage or mass. Craniocervical junction is intact. Calcified plaques in the cavernous supracavernous segments both ICAs. No air-fluid levels in the included paranasal sinuses. Retention cysts versus polyp, right maxillary sinus. Mucosal thickening, ethmoid air cells and right maxillary sinus. Tympanic cavities and mastoid cells are aerated. CT/CT head/brain wo IV con IMPRESSION: Soft tissue contusion/hematoma left parietal. No acute fracture or bony calvarium. No acute intracranial hemorrhage. Acute on chronic right maxillary sinus disease. Electronically signed by: Kane Moncada MD 03/04/2024 02:52 PM EST RP Dictated By: Kane Gutiérrez MD Signed By: <Electronically signed by Kane Banerjee MDin OV> 03/04/24 1452 DD/ 1349 TD/TT: 03/04/24 1349 [employer]: us [facility] External Provider IMG CT PROCEDURES Final Result * CT Cervical Spine w/o Contrast (03/04/2024 1:09 PM EST) Anatomical Region Laterality Modality Spine, C-spine Computed Tomogra phy 03/04/2024 1:09 PM EST Narrative 03/04/2024 2:49 PM EST ? [facility] ?[address] ?[place] [address] ? CT Scan Report ? Signed ? Patient: Barrett Goldman ?MR#: MM ?? [id number] ? : 1965 ?Acct:[id number] ? Age/Sex: 58 / M ?ADM Date: 03/04/24 ? Loc: HO.ED ? Attending Dr: ? Ordering Physician: Jennifer Coleman ?? Date of Service: 03/04/24 ?? Procedure(s): CT cervical spine wo IV con ?? Accession Number(s): [id number] ? cc: Jennifer Coleman; Waleska Goldberg ? EXAMINATION: ?? CT CERVICAL SPINE WITHOUT CONTRAST ? CLINICAL INFORMATION: ?? Status post fall. ? COMPARISON: ?? CT dated July 14, 2023. ? TECHNIQUE: ?? Contiguous axial images through the cervical spine using 0.6 and 3.0 mm ?? collimation with bone and soft tissue algorithm. Sagittal and coronal ?? reformatted images acquired. ? This CT examination was performed using dose optimization techniques as ?? appropriate, variously including the following: ?? *Automated exposure control ?? *Adjustment of mA and/or kV according to patient size (this includes ?? techniques or standardized protocols for targeted exams where dose is ?? matched to indication/reason for exam; i.e. extremities or head) ?? *Use of iterative reconstruction technique ? DLP: ?? 531 mGy-cm ? FINDINGS: ?? Craniocervical junction is intact. Incomplete ankylosis of the ?? occipital condyles to the lateral masses of C1. ?? C1 is intact. ?? C2 is intact. ?? C3 is intact. ?? C4 is intact. ?? C5 is intact. ?? C6 is intact. ?? C7 is intact. ?? Marginal osteophyte formation, subchondral cyst formation and endplate ?? sclerosis and decreased intervertebral disc height with vacuum ?? phenomenon and C5-C6 and to a lesser extent C6-7. ?? Grade 1 anterolisthesis C4-5 on a degenerative basis. ?? Facet joint hypertrophy at C4-5, C5-C6 and C6-7 levels. ?? No gross prevertebral compartment hematoma. ?? Vascular calcifications of the cardiac arteries. ?? Tympanic cavities and mastoid cells are aerated. ? CT/CT cervical spine wo IV con ?? IMPRESSION: ?? Multilevel cervical spondylosis without acute fracture or ?? trauma-related listhesis. ? Fleischner guidelines were followed. ? Electronically signed by: ??Kane Moncada MD ??03/04/2024 02:46 PM ?? EST ? Dictated By: ?Kane Gutiérrez MD ? Signed By: ?<Electronically signed by Kane Banerjee MD in OV> ? 03/04/24 1446 ? DD/ 1309 ? TD/TT: 03/04/24 1349 ? Financial Foundations Associate: ? Procedure Note Fritz Santana - 03/04/[address] [address] [address] Scan Report Signed Patient: Barrett Goldman [facility]#: [id number] : 1965Acct:[id number] Age/Sex: 58 / MADM Date: 03/04/24 Loc: HO.ED Attending Dr: Ordering Physician: Jennifer Coleman Date of Service: 03/04/24 Procedure(s): CT cervical spine wo IV con Accession Number(s): [id number] cc: Jennifer Coleman; Waleska Goldberg [employer]ER EXAMINATION: CT CERVICAL SPINE WITHOUT CONTRAST CLINICAL INFORMATION: Status post fall. COMPARISON: CT dated July 14, 2023. TECHNIQUE: Contiguous axial images through the cervical spine using 0.6 and 3.0 mm collimation with bone and soft tissue algorithm. Sagittal and coronal reformatted images acquired. This CT examination was performed using dose optimization techniques as appropriate, variously including the following: *Automated exposure control *Adjustment of mA and/or kV according to patient size (this includes techniques or standardized protocols for targeted exams where dose is matched to indication/reason for exam; i.e. extremities or head) *Use of iterative reconstruction technique DLP: 531 mGy-cm FINDINGS: Craniocervical junction is intact. Incomplete ankylosis of the occipital condyles to the lateral masses of C1. C1 is intact. C2 is intact. C3 is intact. C4 is intact. C5 is intact. C6 is intact. C7 is intact. Marginal osteophyte formation, subchondral cyst formation and endplate sclerosis and decreased intervertebral disc height with vacuum phenomenon and C5-C6 and to a lesser extent C6-7. Grade 1 anterolisthesis C4-5 on a degenerative basis. Facet joint hypertrophy at C4-5, C5-C6 and C6-7 levels. No gross prevertebral compartment hematoma. Vascular calcifications of the cardiac arteries. Tympanic cavities and mastoid cells are aerated. CT/CT cervical spine wo IV con IMPRESSION: Multilevel cervical spondylosis without acute fracture or trauma-related listhesis. Fleischner guidelines were followed. Electronically signed by: Kane Moncada MD 03/04/2024 02:46 PM EST Dictated By: Kane Gutiérrez MD Signed By: <Electronically signed by Kane Banerjee MDin OV> 03/04/24 1446 DD/ 1309 TD/TT: 03/04/24 1349 Financial Foundations Associate: [facility] External Provider IMG CT PROCEDURES Final Result * XR Elbow 3+ Views Left (03/04/2024 1:09 PM EST) Anatomical Region Laterality Modality Upper Extremities, Elbow Left Radiogr aphic Imaging 03/04/2024 1:09 PM EST Narrative 03/04/2024 3:40 PM EST ? [facility] ?[address] ?[place] [address] ?XRay Report ? Signed ? Patient: Mcadams Hickman,Celso ?MR#: MM ?? [id number] ? : 1965 ?Acct:[id number] ? Age/Sex: 58 / M ?ADM Date: 03/04/24 ? Loc: HO.ED ? Attending Dr: ? Ordering Physician: Jennifer Coleman ?? Date of Service: 03/04/24 ?? Procedure(s): XR elbow LT min 3V ?? Accession Number(s): [id number] ? cc: Jennifer Coleman; Waleska Goldberg ? EXAMINATION: ?? XR ELBOW, LEFT ? CLINICAL INFORMATION: ?? fall ? COMPARISON: ?? None available. ? TECHNIQUE: ?? AP, lateral, and oblique views of the left elbow. ? FINDINGS: ?? No acute cortical disruption or malalignment. No gross joint effusion. ?? Small exostosis at the olecranon/triceps tendon insertion. No lytic or ?? blastic lesions. 4 mm well-corticated calcification inferior to the ?? medial epicondyle of the humerus probable prior trauma. ? XR/XR elbow LT min 3V ?? IMPRESSION: ?? No acute fracture or dislocation. ?? Enthesopathy, triceps tendon. ? Electronically signed by: ??Kane Moncada MD ??03/04/2024 03:37 PM ?? EST RP ? Dictated By: ?Kane Gutiérrez MD ? Signed By: ?<Electronically signed by Kane Banerjee MD in OV> ? 03/04/24 1537 ? DD/ 1309 ? TD/TT: 03/04/24 1404 ? Financial [employer] Associate: ? Procedure Note Fritz Santana - 03/04/[address] [address] XRay Report Signed Patient: Barrett Goldman [facility]#: [id number] : 1965Acct:[id number] Age/Sex: 58 / MADM Date: 03/04/24 Loc: HO.ED Attending Dr: Ordering Physician: Jennifer Coleman Date of Service: 03/04/24 Procedure(s): XR elbow LT min 3V Accession Number(s): [id number] cc: Jennifer Coleman; Waleska Goldberg EXAMINATION: XR ELBOW, LEFT CLINICAL INFORMATION: fall COMPARISON: None available. TECHNIQUE: AP, lateral, and oblique views of the left elbow. FINDINGS: No acute cortical disruption or malalignment. No gross joint effusion. Small exostosis at the olecranon/triceps tendon insertion. No lytic or blastic lesions. 4 mm well-corticated calcification inferior to the medial epicondyle of the humerus probable prior trauma. XR/XR elbow LT min 3V IMPRESSION: No acute fracture or dislocation. Enthesopathy, triceps tendon. Electronically signed by: Kane Moncada MD 03/04/2024 03:37 PM EST RP Dictated By: Kane Gutiérrez MD Signed By: <Electronically signed by Kane Banerjee MDin OV> 03/04/24 1537 DD/ 1309 TD/TT: 03/04/24 1404 Financial Foundations Associate: [facility] External Provider IMG XR PROCEDURES Final Result * XR Shoulder 2+ Views Left (03/04/2024 1:09 PM EST) Anatomical Region Laterality Modality Upper Extremities, Shoulder Left Radi ographic Imaging 03/04/2024 1:09 PM EST Narrative 03/04/2024 3:41 PM EST ? [facility] ?[address] ?[place] [address] ?XRay Report ? Signed ? Patient: Pema Hickman,Celso ?MR#: MM ?? [id number] ? : 1965 ?Acct:[id number] ? Age/Sex: 58 / M ?ADM Date: 11/21/24 ? Loc: HO.ED ? Attending Dr: ? Ordering Physician: Jennifer Coleman ?? Date of Service: 03/04/24 ?? Procedure(s): XR shoulder LT min 2V ?? Accession Number(s): [id number] ? cc: Jennifer Coleman; Waleska Goldberg [employer] ? EXAMINATION: ?? XR SHOULDER, LEFT ? CLINICAL INFORMATION: ?? pain s/p fall ? COMPARISON: ?? X-ray dated April 17, 2018 ? TECHNIQUE: ?? AP external rotation, Grashey, scapular Y, and axillary views of the ?? left shoulder. ? FINDINGS: ?? No acute cortical disruption or malalignment. No lytic or blastic ?? lesions. Sternal wires and vascular clips in the mediastinal and likely ?? CABG procedure. ? XR/XR shoulder LT min 2V ?? IMPRESSION: ?? No acute fracture or dislocation. ? Electronically signed by: ??Kane Moncada MD ??03/04/2024 03:38 PM ?? EST RP ? Dictated By: ?Kane Gutiérrez MD ? Signed By: ?<Electronically signed by Kane Banerjee MD in OV> ? 03/04/24 1538 ? DD/ 1309 ? TD/TT: 03/04/24 1404 ? Financial Foundations Associate: ? Procedure Note Esther, Fritz - 03/04/2024 [place] [address] XRay Report Signed Patient: Barrett Goldman [facility]#: [id number] : 1965Acct:[id number] Age/Sex: 58 / MADM Date: 03/04/24 Loc: HO.ED Attending Dr: Ordering Physician: Jennifer Coleman Date of Service: 03/04/24 Procedure(s): XR shoulder LT min 2V Accession Number(s): [id number] cc: Jennifer Coleman; Waleska Goldberg EXAMINATION: XR SHOULDER, LEFT CLINICAL INFORMATION: pain s/p fall COMPARISON: X-ray dated April 17, 2018 TECHNIQUE: AP external rotation, Grashey, scapular Y, and axillary views of the left shoulder. FINDINGS: No acute cortical disruption or malalignment. No lytic or blastic lesions. Sternal wires and vascular clips in the mediastinal and likely CABG procedure. XR/XR shoulder LT min 2V IMPRESSION: No acute fracture or dislocation. Electronically signed by: Kane Moncada MD 03/04/2024 03:38 PM EST RP Dictated By: Kane Gutiérrez MD Signed By: <Electronically signed by Kane Banerjee MDin OV> 03/04/24 1538 DD/ 1309 TD/TT: 03/04/24 1404 Financial [employer] Associate: [facility] External Provider IMG XR PROCEDURES Final Result * XR Clavicle Left (03/04/2024 1:09 PM EST) Anatomical Region Laterality Modality Body, Clavicle Left Radiographic Delores ging 03/04/2024 1:09 PM EST Narrative 03/04/2024 3:38 PM EST ? [facility] ?[address] ?[place] [address] ?XRay Report ? Signed ? Patient: Barrett Goldman ?MR#: MM ?? [id number] ? : 1965 ?Acct:[id number] ? Age/Sex: 58 / M ?ADM Date: 03/04/24 ? Loc: HO.ED ? Attending Dr: ? Ordering Physician: Jennifer Coleman ?? Date of Service: 03/04/24 ?? Procedure(s): XR clavicle LT ?? Accession Number(s): [id number] ? cc: Jared,Jennifer PA; Waleska Goldberg [employer] ? EXAMINATION: ?? XR CLAVICLE, LEFT ? CLINICAL INFORMATION: ?? fall, pain ? COMPARISON: ?? None available. ? TECHNIQUE: ?? AP views of the left clavicle. ? FINDINGS: ?? No acute cortical disruption. No lytic or blastic lesions. No gross ?? malalignment at the acromioclavicular joint. Sternal wires. ? XR/XR clavicle LT ?? IMPRESSION: ?? No acute fracture, left clavicle. ? Electronically signed by: ??Kane Moncada MD ??03/04/2024 03:35 PM ?? EST RP ? Dictated By: ?Kane Gutiérrez MD ? Signed By: ?<Electronically signed by Kane Banerjee MD in OV> ? 03/04/24 1535 ? DD/ 1309 ? TD/TT: 03/04/24 1404 ? Financial [employer] Associate: ? Procedure Note Donotuseinterpreter, Image - 03/04/[address] [address] XRay Report Signed Patient: Barrett Goldman [facility]#: [id number] : 1965Acct:[id number] Age/Sex: 58 / MADM Date: 03/04/24 Loc: HO.ED Attending Dr: Ordering Physician: Jennifer Coleman Date of Service: 03/04/24 Procedure(s): XR clavicle LT Accession Number(s): [id number] cc: Jennifer Coleman; Waleska Goldberg [employer] EXAMINATION: XR CLAVICLE, LEFT CLINICAL INFORMATION: fall, pain COMPARISON: None available. TECHNIQUE: AP views of the left clavicle. FINDINGS: No acute cortical disruption. No lytic or blastic lesions. No gross malalignment at the acromioclavicular joint. Sternal wires. XR/XR clavicle LT IMPRESSION: No acute fracture, left clavicle. Electronically signed by: Kane Moncada MD 03/04/2024 03:35 PM EST Dictated By: Kane Gutiérrez MD Signed By: <Electronically signed by Kane Banerjee MDin OV> 03/04/24 1535 DD/ 1309 TD/TT: 03/04/24 1404 Financial Found[employer] Associate: [facility] External Provider IMG XR PROCEDURES Final Result * MR Lower Extremity Joint w/o Contrast Left (02/28/2024 9:42 AM EST) Anatomical Region Laterality Modality Lower Extremities Left Magnetic Reson ance 02/28/2024 9:42 AM EST Narrative 03/11/2024 9:17 AM EST ? [facility] ?[address] ?[place] [address] ? Magnetic Resonance Report ? Signed ? Patient: Pema Hickman,Celso ?MR#: MM ?? [id number] ? : 1965 ?Acct:[id number] ? Age/Sex: 58 / M ?ADM Date: 02/28/24 ? Loc: HO.MRI ? Attending Dr: Waleska DRISCOLL ? Ordering Physician: Waleska Goldberg ?? Date of Service: 02/28/24 ?? Procedure(s): MR lower leg LT wo con ?? Accession Number(s): [id number] ? cc: Waleska Goldberg ? EXAMINATION: ?? MR LOWER EXTREMITY WITHOUT CONTRAST, LEFT ? CLINICAL INFORMATION: ?? Generalized pain left lower extremity. ? COMPARISON: ?? None available. ? TECHNIQUE: ?? MRI of the left lower leg was performed without contrast on a ?? high-field MRI scanner. ? FINDINGS: ? SUBCUTANEOUS SOFT TISSUES: Normal. ? MUSCLES/TENDONS: Normal. ? NEUROVASCULAR STRUCTURES: Normal. ? OSSEOUS STRUCTURES: Normal. ? MR/MR lower leg LT wo con ?? IMPRESSION: ?? Normal MRI of the left lower extremity. ? Electronically signed by: ??Navdeep Diez MD ??03/11/2024 09:14 AM ?? EST RP ? Dictated By: ?Navdeep Diez MD ? Signed By: ?<Electronically signed by Navdeep Diez MD in OV> ?03/11/24 0914 ? DD/ 0942 ? TD/TT: 02/28/24 0957 ? Financial [employer]ations Associate: [facility] ? Procedure Note Donstefanoter, Image - 03/11/[address] [address] Magnetic Resonance Report Signed Patient: Barrett Goldman [facility]#: MM [id number] : 1965Acct:[id number] Age/Sex: 58 / MADM Date: 02/28/24 Loc: HO.MRI Attending Dr: Waleska Goldberg [employer] Ordering Physician: Waleska Goldberg Date of Service: 02/28/24 Procedure(s): MR lower leg LT wo con Accession Number(s): [id number] cc: Waleska Goldberg [employer] EXAMINATION: MR LOWER EXTREMITY WITHOUT CONTRAST, LEFT CLINICAL INFORMATION: Generalized pain left lower extremity. COMPARISON: None available. TECHNIQUE: MRI of the left lower leg was performed without contrast on a high-field MRI scanner. FINDINGS: SUBCUTANEOUS SOFT TISSUES: Normal. MUSCLES/TENDONS: Normal. NEUROVASCULAR STRUCTURES: Normal. OSSEOUS STRUCTURES: Normal. MR/MR lower leg LT wo con IMPRESSION: Normal MRI of the left lower extremity. Electronically signed by: Navdeep Diez MD 03/11/2024 09:14 AM EST RP Dictated By: Navdeep Diez MD Signed By: <Electronically signed by Navdeep Diez MD inOV> 03/11/2414 DD/ 1 TD/TT: 02/28/24956 Financial [employer]ations Associate: ISHMAEL Waleska Goldberg [employer] IMG MRI PROCEDURES Final Resul t * MR Lumbar Spine w/o Contrast (02/28/2024 9:21 AM EST) Anatomical Region Laterality Modality Spine, L-spine Magnetic Resonan ce 02/28/2024 9:21 AM EST Narrative 04/23/2024 11:02 AM EST ? [facility] ?[address] ?[place] [address] ? Magnetic Resonance Report ? Signed ? Patient: Barrett Goldman ?MR#: MM ?? [id number] ? : 1965 ?Acct:[id number] ? Age/Sex: 58 / M ?ADM Date: 02/27/24 ? Loc: HO.MRI ? Attending Dr: Waleska Goldberg [employer] ? Ordering Physician: Waleska Goldberg [employer] ?? Date of Service: 02/28/24 ?? Procedure(s): MR lumbar spine wo con ?? Accession Number(s): [id number] ? cc: Waleska Goldberg ? EXAMINATION: ?? MR LUMBAR SPINE WITHOUT CONTRAST ? CLINICAL INFORMATION: ?? Low back pain, chronic bilateral ? COMPARISON: ?? None available. ? TECHNIQUE: ?? MRI of the lumbar spine was obtained using routine sequences without ?? contrast. ? FINDINGS: ?? There are 5 nonrib-bearing lumbar-type vertebrae. ? Preservation of the normal lumbar lordosis. No listhesis. No acute bone ?? marrow abnormality. The vertebral body heights are preserved. ?? Multilevel disc desiccation without significant disc height loss. ? The visualized spinal cord is normal in caliber. No abnormal cord ?? signal. The conus medullaris terminates at L1-2. ? T12-L1: No significant spinal canal or neural foraminal narrowing. ? L1-2: Bilateral facet arthrosis. No significant spinal canal or neural ?? foraminal narrowing. ? L2-3: Shallow left foraminal disc protrusion and bilateral facet ?? arthrosis. No significant spinal canal or neural foraminal narrowing. ? L3-4: Shallow disc bulge and bilateral facet arthrosis. No significant ?? spinal canal or neural foraminal narrowing however the disc abuts the ?? exiting L3 nerve roots bilaterally. ? L4-5: Diffuse disc bulge with superimposed annular fissure. Ligamentum ?? flavum hypertrophy and bilateral facet arthrosis. No significant spinal ?? canal stenosis. Mild right greater than left neural foraminal narrowing ?? with the disc abutting the exiting L4 nerve roots. ? L5-S1: Shallow disc bulge and left facet arthrosis. No significant ?? spinal canal stenosis. Mild left neural foraminal narrowing. ? The paravertebral soft tissues are unremarkable. ? MR/MR lumbar spine wo con ?? IMPRESSION: ?? Multilevel lumbar spondylosis without significant spinal canal ?? stenosis. Neural foraminal narrowing is worst and mild at L4-L5 ?? bilaterally and on the left at L5-S1. ? Electronically signed by: ??Fafa Koudoro MD ??04/23/2024 10:59 AM EST RP ? Dictated By: ?Maria M Moore MD ? Signed By: ?<Electronically signed by Maria M Moore MD in OV> ? 04/23/24 1059 ? DD/ 0921 ? TD/TT: 02/28/24 0935 ? Financial [employer]ations Associate: ? Procedure Note Esther, Image - 04/23/[address] [address] Magnetic Resonance Report Signed Patient: Barrett Goldman [facility]#: MM [id number] : 1965Acct:[id number] Age/Sex: 58 / MADM Date: 02/28/24 Loc: HO.MRI Attending Dr: Waleska DRISCOLL Ordering Physician: Waleska Goldberg Date of Service: 02/28/24 Procedure(s): MR lumbar spine wo con Accession Number(s): [id number] cc: Waleska Goldberg EXAMINATION: MR LUMBAR SPINE WITHOUT CONTRAST CLINICAL INFORMATION: Low back pain, chronic bilateral COMPARISON: None available. TECHNIQUE: MRI of the lumbar spine was obtained using routine sequences without contrast. FINDINGS: There are 5 nonrib-bearing lumbar-type vertebrae. Preservation of the normal lumbar lordosis. No listhesis. No acute bone marrow abnormality. The vertebral body heights are preserved. Multilevel disc desiccation without significant disc height loss. The visualized spinal cord is normal in caliber. No abnormal cord signal. The conus medullaris terminates at L1-2. T12-L1: No significant spinal canal or neural foraminal narrowing. L1-2: Bilateral facet arthrosis. No significant spinal canal or neural foraminal narrowing. L2-3: Shallow left foraminal disc protrusion and bilateral facet arthrosis. No significant spinal canal or neural foraminal narrowing. L3-4: Shallow disc bulge and bilateral facet arthrosis. No significant spinal canal or neural foraminal narrowing however the disc abuts the exiting L3 nerve roots bilaterally. L4-5: Diffuse disc bulge with superimposed annular fissure. Ligamentum flavum hypertrophy and bilateral facet arthrosis. No significant spinal canal stenosis. Mild right greater than left neural foraminal narrowing with the disc abutting the exiting L4 nerve roots. L5-S1: Shallow disc bulge and left facet arthrosis. No significant spinal canal stenosis. Mild left neural foraminal narrowing. The paravertebral soft tissues are unremarkable. MR/MR lumbar spine wo con IMPRESSION: Multilevel lumbar spondylosis without significant spinal canal stenosis. Neural foraminal narrowing is worst and mild at L4-L5 bilaterally and on the left at L5-S1. Electronically signed by: Maria M Moore MD 04/23/2024 10:59 AM EST Dictated By: Maria M Moore MD Signed By: <Electronically signed by Maria M Moore MD in OV> 04/23/24 1059 DD/ 0921 TD/TT: 02/28/24 0935 Financial [employer] Associate: Waleska Ashlyn [employer] IMG MRI PROCEDURES Final Resul t * Hm Colonoscopy (05/30/2022 9:04 PM EST) Historical Provider HEALTH MAINTENANCE Final Result * MICROALBUMIN/CREATININE RATIO, RANDOM URINE (08/06/2021 8:19 AM EDT) Creatinine Urine 104.90 mg/dL [facility] Microalbum/Creati nine Ratio Ur 8.5 ug/mg cr [facility] Comment: ?Albumin/Creatinine Ratio Reference Ranges: ? Normal: < 30 ug/mg creatinine ? Microalbuminuria: ??30 - 300 ug/mg creatinine Clinical Albuminuria: ??> 300 ug/mg creatinine Microalbumin Urine 9.0 mg/L [facility] 08/06/2021 8:19 AM EDT Historical Provider HISTORICAL/NON ORDERABLE LABS Final Result [facility] [address] * (ABNORMAL) LIPID PANEL (05/07/2021 9:10 AM EST) Cholesterol 113 mg/dL [facility] Comment: Desirable Cholesterol: ?less than 200 mg/dL Borderline High Cholesterol: ??200-239 mg/dL High Cholesterol: ? greater than 239 mg/dL HDL Cholesterol 27 mg/dL [facility] Comment: Desirable HDL: ??greater than 40 mg/dL ?? Note: This HDL assay may give artificially ? low results in patients with liver disease. LDL Cholesterol Calculated 71 mg/dl [facility] Comment: Desirable LDL: ? less than 100 mg/dL Near Optimal/Above Optimal LDL: ??110-129 mg/dL Borderline High LDL: ? 130-159 mg/dL High LDL: ?160-189 mg/dL Very High LDL: ? greater than or equal to ?190 mg/dL Triglycerides 77 mg/dL [facility] Comment: Desirable Triglyceride: ? less than 150 mg/dL Borderline High Triglyceride ??150-199 mg/dL High Triglyceride: ?200-499 mg/dL Very High Triglyceride: ? greater than or equal to ? 5OO mg/dL Alanine Aminotransferase 23 0 - 40 U/L [facility] Albumin Level 4.4 3.5 - 5.0 g/dL [facility] Alkaline Phosphatase 109 39 - 117 U/L [facility] Anion Gap 12 12 - 20 [facility] Aspartate Amino Transferase 21 5 - 37 U/L [facility] Bilirubin Total 2.0(H) 0.0 - 1.0 mg/dL [facility] Blood Urea Nitrogen 23(H) 9 - 16 mg/dL [facility] Calcium 9.1 8.4 - 10.2 mg/dL [facility] Carbon Dioxide 25 22 - 29 mmol/L [facility] Chloride 109(H) 96 - 108 mmol/L [facility] Creatinine, Serum 0.96 0.5 - 1.4 mg/dL [facility] Estimated Glomerular Filt Rate >60 [facility] Comment: NOTE: ??For -Kyrgy[place] individuals, multiply the result ?by 1.210. ?? Chronic Kidney Disease: ??Estimated GFR < 60 mL/min/1.73m2 Severe Kidney Disease: ??Estimated GFR < 15 mL/min/1.73m2 Glucose Random 101 60 - 115 mg/dL [facility] Potassium 3.9 3.3 - 5.1 mmol/L [facility] Sodium 142 135 - 145 mmol/L [facility] Total Protein 6.9 6.5 - 8.0 g/dL [facility] 05/07/2021 9:10 AM EST us Historical Provider HISTORICAL/NON ORDERABLE LABS Final Result [facility] [address] from Last 3 Months or Most Recently Relevant to Health Maintenance Insurance [facility] STAND ADULT Care Teams Job Honer Relationship Specialty Start Date End Date Waleska Goldberg FNP [address] [place] [id number] PCP - General Family Medicine 12/12/21 Gloria Flores Supervisor Hand WorkersCyber Systems Operations Specialist 03/13/23
--- OUTSIDE RECORDS SUMMARY | 2024-05-21 19:32 | XMS_ITS | Encounter Summary ---
Author Organization [employer] Address [address] [place] [address] Care Team Providers Care Shoeshiner Name Role Phone Waleska Goldberg MEAT PROCESS WORKER Primary Care Provider [phone] Encounter Details Date Type Department Care Team ([facility] st Contact Info) Description 04/16/2024 Orders Only [facility] [address] [place], [place] [id number] Provider, MD Aleisha Social History Tobacco Use Types Packs/Day Years [...] Procedure Name Priority Date/Time Associated Diagnosis Comments HM COLONOSCOPY Routine 05/30/2022 9:04 PM EST documented in this encounter Results * Hm Colonoscopy (05/30/2022 9:04 PM EST) us Historical Provider HEALTH MAINTENANCE Final Result documented in this encounter Visit Diagnoses Not on filedocumented in this encounter Additional Health Concerns Assessment Noted Time PHQ-9 Depression Total Score: 6 07/30/19 24 10:53 AM EDT documented as of this encounter Care Teams Shoeshiner Relationship Specialty Start Date End Date Waleska Goldberg FNP [address] [place] [id number] PCP - General Family Medicine 12/12/21 Gloria Flores Warehouse PersonTrimmer And Borer Machine Operator 03/13/23 documented as of this encounter
--- OUTSIDE RECORDS SUMMARY | 2024-05-21 19:32 | XMS_ITS | Encounter Summary ---
Author Organization [employer] Address [address] [place] [address] [address] [place] [address] Care Team Providers Care Baggage Checker Name Role Phone Waleska Goldberg Primary Care Provider [phone] Reason for Referral * Consultation (Urgent) - Closed Specialty Diagnoses / Procedures Referred By Shayne rodriguez Referred To Contact Orthopaedic Surgery Diagnoses Fracture of left patella with routine healing Waleska Goldberg FNP [address] [place] [address] Phone: tel: fax: [facility] [address] [place] [address] Phone: tel: Referral ID Status Reason Start Date Expiration Date V isits Requested Visits Authorized [id number] Closed Specialty Services Required 04/23/2024 04/23/2025 1 1 * Consultation (Routine) - Closed Specialty Diagnoses / Procedures Referred By Shayne rodriguez Referred To Contact Physical Therapy Diagnoses Fracture of left patella with routine healing Waleska Goldberg FNP [address] [place] [address] Phone: tel: fax: [facility] [address] [place] [address] Phone: tel: fax: Referral ID Status Reason Start Date Expiration Date V isits Requested Visits Authorized [id number] Closed Specialty Services Required 04/23/2024 04/23/2025 1 1 Encounter Details Date Type Department Care Team (Late st Contact Info) Description 04/23/2024 2:30 PM EST Telemedicine [facility] & PEDS [address] [place] [address] AnaWaleska paniagua, WINDOW AND DOOR INSTALLER [address] [place] [address] Fracture of left patella with routine healing (Primary Dx); Insomnia, unspecified type Social History Tobacco Use [...] as of this encounter Progress Notes * Walseka Goldberg, WINDOW AND DOOR INSTALLER - 04/23/2024 2:30 PM EST Subjective: Barrett Hickman is a 59 y.o. male with PMH heart failure, UT, depression, neuropathy, arthritis, type 2 diabetes, and insomnia who presents via telehealth for a follow-up visit. HPI from 04/16/24: - Mr. Mcadams was evaluated at [facility] on 03/04/24 for mechanical fall at home. No active findings on imaging. Reports a few weeks later started to feel worsening pain/swelling on right foot associated with redness and increased warmth. Left knee was also continuing to be painful with ambulation. Presented to [facility] ED on 03/19/24 and was tx for cellulitis with doxy and Keflex. XR of knee at that time wasread as negative for fracture. Symptoms persisted since ED visit, and he was subsequently admitted at [facility] on 03/22/24. Left knee continues to be painful, describes as moderate-severe in intensity. Had been using APAP PRN, but not fully effective for pain. NSAIDs not advised with hx of UT. Usingcane for ambulatory support. Referral to physical therapy placed 04/12/24, pending initial appt. Today: Mr. Mcadams reports that he continues with moderate to severe pain of left knee. Found only mild relief with the Percocet 5-325 mg BID. Ambulating with discomfort. Difficult to sleep at night. Was able to secure PT appointment for 04/30/24. CT left lower extremity pending. Referral to Ortho for further eval and treatment. Telehealth: Patient gave verbal consent to be seen in this manner. A complete assessment and plan is detailed in the note, all of which were conducted remotely using virtual technology. Patient identity was verbally confirmed with 2 identifiers at the start of the visit. Patient verbalized being located in the [facility] during the televisit. Provider was located in an Ambulatory examroom/outside the office at a secure location during the visits. Review of Systems Constitutional: Negative for chills and fever. Respiratory: Negative for cough and wheezing. Cardiovascular: Negative for chest pain and palpitations. Musculoskeletal: Positive for arthralgias and gait problem. Physical Exam Neurological: Mental Status: He is oriented to person, place, and time. Psychiatric: Mood and Affect: Mood normal. Behavior: Behavior normal. Problem List Items Addressed This Visit Nervous Insomnia Relevant Medications traZODone (Desyrel) 50 MG tablet Other Visit Diagnoses Fracture of left patella with routine healing - Primary - CT LLE w/o contrast to further eval for fx of left patella - Pain control: Percocet 10-325mg BID PRN severe pain. Reviewed med safety and SE. Use sparingly. - Physical therapy consult scheduled 04/30/2024 at [facility]. Updated referral placed. - Urgent referral to Ortho given severity of pain - ED precautions Relevant Medications oxyCODONE-acetaminophen (Percocet) 10-325 MG tablet Other Relevant Orders Referral to Physical Therapy Referral to Orthopaedic Surgery Follow up: TC status check in 1 week. OV in 3 months for CDM, sooner PRN documented in this encounter Plan of Treatment Scheduled Referrals Name Type Priority Associated Diagnoses Order Schedule Referral to Physical Therapy Outpatient Referral Routine Fracture of left patella with routine healing Expected: 04/23/2024 (Approximate), Expires: 04/23/2025 Referral to Orthopaedic Surgery Outpatient Referral Urgent Fracture of left patella with routine healing Expected: 04/23/2024 (Approximate), Expires: 04/23/2025 documented as of this encounter Visit Diagnoses Diagnosis Fracture of left patella with routine healing- Primary Insomnia, unspecified type documented in this encounter Additional Health Concerns Assessment Noted Time PHQ-9 Depression Total Score: 6 07/30/19 24 10:53 AM EDT documented as of this encounter Care Teams Baggage Checker Relationship Specialty Start Date End Date Waleska Goldberg FNP [address] [place] [address] PCP - General Family Medicine 12/12/21 Gloria Flores Animal Cruelty Investigation SupervisorEngineer Station Mainline 03/13/23 documented as of this encounter
== END 2024-05-21 19:37 | disposition left against medical advice (07) ==
LOC: HO.ED 19:29
PROVIDERS: Physician Assistant Medical; Emergency Provider Emergency Medicine; PCP Registered Nurse
DX: R10.2 Pelvic and perineal pain (principal); E11.42 Type 2 diabetes mellitus with diabetic polyneuropathy; Z79.899 Other long term (current) drug therapy; Z79.4 Long term (current) use of insulin
CPT/HCPCS: 36415; 74176; 80053; 81001; 82947; 83690; 83735; 85025; 99282; 99283

== ENCOUNTER 2024-06-24 08:26 | Outpatient (AMB) | payer MEDICAID, SELFPAY ==
[2024-06-24 08:30] VITALS: BP 90/62; PULSE 85; BMI 29.7
--- NOTE | 2024-06-24 08:30 | MHC.OFFVIS ---
Vital Signs 06/24/24 08:30 Height 5 ft 4 in Weight 173 lb 4.533 oz BMI 29.7 BP 90/62 Blood Pressure Location Lt brachial Position Sitting Pulse 85 Pulse Source Monitor Intake Visit Reasons: Atherosclerotic cardiovascular disease Sales Team Leader Required: Yes Sales Team Leader Language: Cruise Consultant Name: voice gant [id number] Allergies No Known Allergies [No Known Allergies*] Allergy (Verified 06/24/24 08:32) Medication List - Last Reconciled 06/24/24 by ZACHERY Duval acetaminophen (Tylenol) 325 mg PO Q4H PRN acetaminophen (Tylenol Extra Strength) 500 mg PO Q8H PRN ammonium lactate 12% 1 appl topical BID aspirin 81 mg PO QAM atorvastatin 80 mg PO DAILY blood sugar diagnostic (FreeStyle Lite Strips) 1 strip miscellaneous QID PRN blood-glucose meter (FreeStyle Bruce Lite kit) 1 ea miscellaneous DIRECTED calcium polycarbophil (Fiber-Lax) 625 mg PO TID carvedilol 3.125 mg PO BID clopidogrel 75 mg PO DAILY diclofenac sodium 1% 2 grams topical QID 30 days dicyclomine 20 mg PO QID PRN docusate sodium (Stool Softener) 200 mg (2 x 100 mg) PO BEDTIME ezetimibe (Zetia) 10 mg PO DAILY flash glucose scanning reader (FreeStyle Alfredo 2 Burleson) As directed flash glucose sensor (FreeStyle Alfredo 2 Sensor kit) As directed every 2 weeks fluticasone propionate 50 mcg/actuation 1 - 2 sprays intranasal DAILY PRN furosemide (Lasix) 20 mg PO DAILY 90 days gabapentin 800 mg PO BID hydrocodone-acetaminophen 5-325 mg 1 tab PO Q6H PRN hydrocortisone 2.5% (Proctozone-HC) 1 appl UT BID PRN ibuprofen 600 mg PO Q6H PRN insulin aspart U-100 (Novolog FlexPen U-100 Insulin aspart) 6-8 units with meals, 2 units with snack subcut 4 times a day; insulin glargine (Lantus Solostar U-100 Insulin) 30 units (0.3 mL) subcut DAILY isosorbide mononitrate ER 60 mg PO DAILY ketorolac 10 mg PO Q6H PRN 5 days lancets (TRUEplus Lancets) 1 gauge miscellaneous QID lidocaine 5% 1 patch topical DAILY PRN lidocaine 5% 1 patch topical DAILY lisinopril 2.5 mg PO DAILY magnesium citrate 300 mL PO DAILY PRN melatonin 5 mg (2 tab) PO once; metformin 1,000 mg (2 x 500 mg) PO BID 30 days naproxen 500 mg PO nitroglycerin 0.4 mg sublingual Q5M PRN pen needle, diabetic (Pentips Pen Needle) USE SIX TIMES DAILY DIRECTED polyethylene glycol 3350 (Miralax) 17 grams PO DAILY 30 days potassium citrate ER 20 mEq (2 x 10 mEq (1,080 mg)) PO BID 90 days pregabalin 100 mg PO ONCE ranolazine ER 500 mg PO BID tadalafil 10 mg PO DAILY 90 days tizanidine 4 mg PO TID HPI HPI Atherosclerotic cardiovascular disease: Details: Today is a 59-year-old male with past medical history of hypertension, hyperlipidemia, diabetes, CAD, 5 vessel coronary artery bypass grafting 2019, ischemic cardiomyopathy who presents for follow-up. His last prior visit to our office was 01/23/2023. today he reports that he does get some discomfort in the chest. In talking with him it seems that his symptom mostly occurs when he takes a deep breath in or does activities that require him to breathe more deeply. His chest discomfort is reproducible with deep inspiration. He did undergo a cardiac catheterization for this symptom 02/06/2023 which showed patent grafts and no changes. He has shortness of breath with exertion which is not new. He denies shortness of breath at rest, PND, orthopnea or edema. No heart palpitations, lightheadedness, presyncope, syncope, falls. He admits to being mostly sedentary. Taking all meds as directed. [facility]LY [facility], [facility] Medical History Ischemic cardiomyopathy Atherosclerotic cardiovascular disease History of pancreatitis Hepatitis B Hepatitis C Chronic HFrEF (heart failure with reduced ejection fraction) Cardiomyopathy Type 2 diabetes mellitus with hyperglycemia, with long-term current use of insulin Type 2 diabetes mellitus with diabetic polyneuropathy Hyperlipidemia LDL goal <70 Essential hypertension Myocardial infarction Surgical History (Updated 06/24/24 @ 11:59 by Chely Randhawa, MARIBEL-C) Hx of colonoscopy History of appendectomy Hx of heart artery stent H/O coronary artery bypass surgery H/O cardiac catheterization Family History Mother Diabetes Social History Household Members: Spouse Alcohol intake: never Patient Tobacco Use Status: Never used Tobacco Current occupational status: unemployed Review of Systems Const All systems reviewed & are unremarkable except as noted in HPI and below ENT Denies dizziness Card Reports chest pain (with deep inspiration), Reports chest pain at rest, Reports chest pain with activity, Denies rapid heart rate, Denies pedal edema, Denies edema, Denies leg edema, Denies lightheadedness, Denies palpitations, Denies dyspnea, Reports dyspnea on exertion and Denies orthopnea Resp Denies cough, Denies dyspnea and Reports dyspnea on exertion GI Denies hematochezia and Denies change in stool character Musc Denies abnormal gait, Denies limited range of motion, Denies muscle cramps, Denies muscle weakness, Denies numbness, Denies radiating pain into limb, Denies stiffness and Denies tingling Neuro Denies abnormal gait, Denies dizziness, Denies numbness and Denies tingling Endo Denies palpitations Physical Exam Vital Signs: Last Vital Signs Pulse 85 06/24/24 08:30 BP 90/62 06/24/24 08:30 BMI result Body Mass Index 29.7 Const General: cooperative, healthy appearing, comfortable and no acute distress Orientation/consciousness: patient oriented x3 Neck Neck: Yes normal visual inspection and Yes no JVD Resp Effort & Inspection: normal respiratory effort Auscultation: clear to auscultation bilaterally, no crackles, no rales, no rhonchi and no wheezes Cardio Jugular venous distension: no JVD Rate: regular rate Rhythm: regular rhythm Heart sounds: S1 normal heart sound present, S2 normal heart sound present, no murmurs and no rubs Neuro General: patient oriented x3 Extrem General: Yes normal to inspection, No no pedal edema and No calf tenderness Psych Appearance: grossly normal Mental Status: mental status grossly normal Speech and movement: Normal speech and movement present Office Procedures EKG Details: Today, read by me, ST, RBBB, inferior infarct, cant exclude prior lateral infarct, rate 85, Qtc 499ms ( falsely prolonged due to wide QRS) [id number], Complete Assessment & Plan Assessment & Plan (1) Atherosclerotic cardiovascular disease: Code(s): I25.10 - Atherosclerotic heart disease of lime coronary artery without angina pectoris Category: Medical Plan: History of CAD with 5 vessel coronary artery bypass grafting 2019. Cardiac catheterization for reports of chest discomfort.02/06/2023 showed patent grafts, known occlusion of the distal RCA, no changes noted. He is still reporting discomfort in his chest which sounds most like chest wall discomfort with deep inspiration. Last echocardiogram done 08/08/2023 showed EF 47%, inferior wall motion abnormality, no changes to prior echo in 2019. EKG done today shows sinus rhythm with right bundle branch block, prior inferior infarct, rate 85. Signs and symptoms of angina reviewed with him. Will update echocardiogram to reassess EF and wall motion. Continue aspirin indefinitely. Continue high-dose atorvastatin and Zetia with ideal LDL goal less than 70. Continue carvedilol, isosorbide. Blood pressure is low, unable to add amlodipine at this visit ( Suggested at time of cardiac). cardiology follow-up 3 months, sooner if needed. (2) H/O coronary artery bypass surgery: Comment: 2019, john to LAD, SVG from aorta right to right PDA, SVG from aorta left to 1st OM, SVG from aorta left to OM 2, SVG from aorta left to 1st diagonal Code(s): Z95.1 - Presence of aortocoronary bypass graft Category: Surgical Plan: all grafts patent on cardiac catheterization 02/06/2023 (3) Precordial chest pain: Code(s): R07.2 - Precordial pain Category: Medical Plan: as above. cardiac catheterization for this discomfort 01/2023 showed patent grafts and no change in anatomy. (4) Ischemic cardiomyopathy: Code(s): I25.5 - Ischemic cardiomyopathy Category: Medical Plan: Last echocardiogram showing EF 47%. No signs of heart failure on examination. He is on carvedilol and low-dose lisinopril for neurohormonal modulation. Blood pressure low, asymptomatic. No med changes made. Will update echocardiogram. (5) Hyperlipidemia LDL goal <70: Code(s): E78.5 - Hyperlipidemia, unspecified Category: Medical Plan: Watchung LDL goal less than 70. Will have him go for fasting lipids today. Continue high-dose atorvastatin and Zetia. (6) Essential hypertension: Code(s): I10 - Essential (primary) hypertension Category: Medical Plan: Controlled, currently low and asymptomatic. Meds reviewed and no changes made at this time. If he continues to have low blood pressures then isosorbide dose could be reduced Plan time spent on chart review, documentation, interview and assessment Orders: Orders Lipid Panel Today I25.10 - Atherosclerotic heart disease of lime coronary artery without angina pectoris CA echo transthoracic complete Today I25.5 - Ischemic cardiomyopathy, Z95.1 - Presence of aortocoronary bypass graft Coding Level of Care Code Est Pt Level 4 (36269) Complex EM visit Add On G2211 Diagnoses Atherosclerotic cardiovascular disease I25.10 H/O coronary artery bypass surgery Z95.1 Precordial chest pain R07.2 Ischemic cardiomyopathy I25.5 Hyperlipidemia LDL goal <70 E78.5 Essential hypertension I10 CPT Codes EKG - CPT: 51035-[id number], Complete ([id number]) Time Spent (min) 30
== END 2024-06-24 08:59 | disposition home or self-care (01) ==
LOC: HO.HCS 08:27
PROVIDERS: PCP Registered Nurse; Visit Provider Nurse Practitioner Family
DX: I25.10 Atherosclerotic heart disease of native coronary artery without angina pectoris (principal); Z95.1 Presence of aortocoronary bypass graft; R07.2 Precordial pain; I25.5 Ischemic cardiomyopathy; E78.5 Hyperlipidemia, unspecified; I10 Essential (primary) hypertension
CPT/HCPCS: 93010; 99214

== ENCOUNTER 2024-06-24 08:26 | Outpatient (REF) | payer MEDICAID, SELFPAY ==
--- NOTE | ~2024-06-24 | XR_ITS ---
CLINICAL HISTORY: 58 y o M with pain left lateral foot 3 view left foot Comparison: CR/SR - XR FOOT LT MIN 3V - 03/19/24 20:44 EST Findings: No fractures or dislocations. There are mild degenerative changes of the midfoot and 1st interphalangeal joint. No ankle effusion. No radiopaque foreign body. There are posterior and plantar calcaneal spurs. IMPRESSION: 1. No acute findings. Calcaneal spurs and mild degenerative changes. This document has been electronically signed by: Jim Mathews MD on 06/25/2024 08:54:13
--- OUTSIDE RECORDS SUMMARY | 2024-06-24 10:29 | XMS_ITS | Encounter Summary ---
Author Organization [employer] Address [address] [facility] [address] [place] [address] Care Team Providers Care Car Knocker Name Role Phone Waleska Goldberg Primary Care Provider [phone] Encounter Details Date Type Department Care Team (Latest Contact Info) Description 03/24/2019 Abstract [facility] CONVERSIONS Dental, Provider, DDS Social History Tobacco Use Types Packs/Day Years Used Date Smoking Tobacco: Never Assessed Sex and Gender Information Value Date Recorded Sex Assigned at Male 02/11/2022 10:34 AM EDT Legal Sex Male 10:34 AM EDT Gender Identity Male 02/11/2022 10:34 AM EDT Sexual Orientation Choose not to disclose 2021 10:34 AM EDT documented as of this encounter Plan of Treatment Upcoming Encounters Date Type Department Care Team (Late st Contact Info) Description 07/16/2024 11:30 AM EDT Office Visit [facility] MED & PEDS [address] [place] [address] Waleska Goldberg FNP [address] [place] [address] documented as of this encounter Visit Diagnoses Not on filedocumented in this encounter Care Teams Car Knocker Relationship Specialty Start Date End Date Waleska Goldberg FNP [address] [place] [address] PCP - General Family Medicine 12/12/21 Gloria Flores Pressure Tester OperatorPostal Transportation Clerk 03/13/23 documented as of this encounter
--- OUTSIDE RECORDS SUMMARY | 2024-06-24 10:29 | XMS_ITS | Encounter Summary ---
Author Organization [employer] Address [address] [facility] 7[address] [place] [address] Care Team Providers Care Log Snaker Name Role Phone Waleska Goldberg Primary Care Provider [phone] Reason for Visit * Reason Onset Date Comments Hospital Follow-up 05/04/2024 Encounter Details Date Type Department Care Team ([facility] st Contact Info) Description 05/04/2024 Telephone [facility] MEDICINE [address] [place], [place] [phone] Waleska Goldberg FNP [address] [place], [place] [phone] Hospital Follow-up Social History Tobacco Use Types [...] from pt requesting a HDF appt. Hospital: [facility] Date of admission: 04/29/2024 Discharge date: 05/01/2024 Diagnosed: Kidney stones , pt satated that at ER they placed a godfrey that has to be remove *Send message to [facility] Clinical Care Coordinators documented in this encounter Plan of Treatment Upcoming Encounters Date Type Department Care Team (Late st Contact Info) Description 07/16/2024 11:30 AM EDT Office Visit [facility] MED & PEDS [address] [place] [address] Waleska Goldberg FNP [address] [place] [address] documented as of this encounter Visit Diagnoses Not on filedocumented in this encounter Additional Health Concerns Assessment Noted Time PHQ-9 Depression Total Score: 6 07/30/19 24 10:53 AM EDT documented as of this encounter Care Teams Log Snaker Relationship Specialty Start Date End Date Waleska Goldberg FNP [address] [place] [address] PCP - General Family Medicine 12/12/21 Gloria Flores Library Media TechnicianDirector Of Intelligence 03/13/23 documented as of this encounter
--- OUTSIDE RECORDS SUMMARY | 2024-06-24 10:29 | XMS_ITS | Encounter Summary ---
Author Organization [employer] Address [address] [facility] [address] [place] [address] Care Team Providers Care Job Site Supervisor Name Role Phone Waleska Goldberg Primary Care Provider [phone] Reason for Visit * Reason Onset Date Comments Med Refill 05/06/2024 Encounter Details Date Type Department Care Team (Late st Contact Info) Description 05/06/2024 Telephone [facility] MEDICINE [address] [place], [place] [phone] Waleska Goldberg FNP [address] [place], [place] [phone] Med Refill Social History Tobacco Use Types [...] 10-325 MG tablet To be sent to: [facility] - [place], [place] - [address] [place] [address] documented in this encounter Plan of Treatment Upcoming Encounters Date Type Department Care Team (Late st Contact Info) Description 07/16/2024 11:30 AM EDT Office Visit [facility] MED & PEDS [address] [place] [address] Waleska Goldberg FNP [address] [place] [address] documented as of this encounter Visit Diagnoses Not on filedocumented in this encounter Additional Health Concerns Assessment Noted Time PHQ-9 Depression Total Score: 6 07/30/19 24 10:53 AM EDT documented as of this encounter Care Teams Job Site Supervisor Relationship Specialty Start Date End Date Waleska Goldberg FNP [address] [place] [address] PCP - General Family Medicine 12/12/21 Gloria Flores Scouring Pads SupervisorAppliance Assembler 03/13/23 documented as of this encounter
--- OUTSIDE RECORDS SUMMARY | 2024-06-24 10:29 | XMS_ITS | Encounter Summary ---
Author Organization [employer] Address [address] [facility] [address] [place] [address] Care Team Providers Care Airborne Missions Systems Name Role Phone Waleska Goldberg Primary Care Provider [phone] Reason for Visit * Reason Onset Date Comments Med Refill 06/01/2024 Encounter Details Date Type Department Care Team (Late st Contact Info) Description 06/01/2024 Refill [facility] MEDICINE [address] [place], [place] [phone] Waleska Goldberg FNP [address] [place] [address] Fracture of left patella with routine healing [...] * Telephone Encounter - AMERICO Lebron - 06/01/2024 4:12 PM EST Please let him know that short course of opioid was sent in with plan for no refills. He should hopefully be feeling better, but if not, will need to follow up for visit. [facility]. Thank you! * Telephone Encounter - Dee Nuñez - 06/01/2024 3:53 PM EST TC from pt requesting medication refill. Medications needing refill : oxyCODONE-acetaminophen (Percocet) 10-325 MG tablet To be sent to: [facility]/pharmacy #[id number] documented in this encounter Plan of Treatment Upcoming Encounters Date Type Department Care Team ([facility] st Contact Info) Description 07/16/2024 11:30 AM EDT Office Visit [facility] MED & PEDS [address] [place], [place] [phone] Waleska Goldberg FNP [address] [place], [place] [phone] documented as of this encounter Visit Diagnoses Diagnosis Fracture of left patella with routine healing documented in this encounter Additional Health Concerns Assessment Noted Time PHQ-9 Depression Total Score: 6 07/30/19 24 10:53 AM EDT documented as of this encounter Care Teams Airborne Missions Systems Relationship Specialty Start Date End Date Waleska Goldberg FNP [address] [place] [address] PCP - General Family Medicine 12/12/21 Gloria Flores Compliance AdministratorSales Team Manager 03/13/23 documented as of this encounter
--- OUTSIDE RECORDS SUMMARY | 2024-06-24 10:29 | XMS_ITS | Encounter Summary ---
Author Organization [employer] Address [address] [facility] [address] [place] [address] Care Team Providers Care Air Chipper Name Role Phone Waleska Goldberg Primary Care Provider [phone] Encounter Details Date Type Department Care Team (Latest Contact Info) Description 07/10/[address] [facility] CONVERSIONS Dental, Provider, DDS Social History [...] Description 07/16/2024 11:30 AM EDT Office Visit [facility] CH[facility] MED & PEDS [address] [place] [address] Waleska Goldberg FNP [address] [place] [address] documented as of this encounter Visit Diagnoses Not on filedocumented in this encounter Care Teams Air Chipper Relationship Specialty Start Date End Date Waleska Goldberg FNP [address] [place] [address] PCP - General Family Medicine 12/12/21 Gloria Flores Hairspring Truing InspectorTouch Up Painter 03/13/23 documented as of this encounter
--- OUTSIDE RECORDS SUMMARY | 2024-06-24 10:29 | XMS_ITS | Encounter Summary ---
Author Organization [employer] Address [address] [facility] 7t [place] [address] Care Team Providers Care Field Research Assistant Name Role Phone Waleska Goldberg Primary Care Provider [phone] Reason for Visit * Reason Comments Med Refill Encounter Details Date Type Department Care Team (Late st Contact Info) Description 06/07/2024 Refill [facility] MED & PEDS [address] [place], [place] [phone] Waleska Goldberg FNP [address] [place] [address] Fracture of left patella with routine healing [...] encounter Miscellaneous Notes * Telephone Encounter - Aileen Ford RN - 06/09/2024 2:27 PM EST TC to pt regarding message below via BLS ID# [id number]. Pt stated he has an appt scheduled with urologyon 07/13/24. Appt scheduled with PCP on 07/16/24 @ 11:30am. * Telephone Encounter - AMERICO Lebron - 06/09/2024 2:09 PM EST Thank you - no plan for refills. He should follow up with Urology for the pain if that is still thecause of his symptoms. I do not see an appt scheduled in July, maybe he cancelled? * Telephone Encounter - Aileen Ford RN - 06/08/2024 4:12 PM EST [place]. Pt requesting refill of Percocet. Called via BLS ID# [id number]. Also called pt on 06/01/24 advisingof the message from PCP on 06/01/24: Please let him know that short course of opioid was sent in with plan for no refills. He should hopefully be feeling better, but if not, will need to follow up for visit. Walk in [place] extended open tonight PRN. Thank you! Pt then verbalized understanding. Pt called again for a refill today. Stated he does not want to goto walk in [place], asked for a f/u appt with PCP which was scheduled for 07/16/24. Pt verbalized understanding. documented in this encounter Plan of Treatment Upcoming Encounters Date Type Department Care Team (Late st Contact Info) Description 07/16/2024 11:30 AM EDT Office Visit [facility] MED & PEDS [address] [place] [address] Waleska Goldberg FNP [address] [place] [address] documented as of this encounter Visit Diagnoses Diagnosis Fracture of left patella with routine healing documented in this encounter Additional Health Concerns Assessment Noted Time PHQ-9 Depression Total Score: 6 07/30/19 24 10:53 AM EDT documented as of this encounter Care Teams Field Research Assistant Relationship Specialty Start Date End Date Waleska Goldberg FNP [address] [place] [address] PCP - General Family Medicine 12/12/21 Gloria Flores Die SinkerSuspender Cutter 03/13/23 documented as of this encounter
--- OUTSIDE RECORDS SUMMARY | 2024-06-24 10:29 | XMS_ITS | Encounter Summary ---
Author Organization [employer] Address [address] [facility] 7t [place] [address] Care Team Providers Care Retouching Operator Name Role Phone Waleska Goldberg Primary Care Provider [phone] Reason for Visit * Reason Onset Date Comments Referral 05/28/2022 Encounter Details Date Type Department Care Team (Late st Contact Info) Description 05/28/2022 Telephone [facility] MEDICINE [address] [place] [address] Waleska Goldberg FNP [address] [place] [address] Referral Social History Tobacco Use Types Packs/Day [...] Description 07/16/2024 11:30 AM EDT Office Visit [facility] MED & PEDS [address] [place], [place] [phone] Waleska Goldberg FNP [address] [place] [address] documented as of this encounter Visit Diagnoses Not on filedocumented in this encounter Care Teams Retouching Operator Relationship Specialty Start Date End Date Waleska Goldberg FNP [address] [place] [address] PCP - General Family Medicine 12/12/21 Gloria Flores Glue Mounter OperatorPlant Puller 03/13/23 documented as of this encounter
--- OUTSIDE RECORDS SUMMARY | 2024-06-24 10:29 | XMS_ITS | Encounter Summary ---
Author Organization [employer] Address [address] 7[address] [place] [address] Care Team Providers Care Temperature Control Inspector Name Role Phone Waleska Goldberg AMERICO Primary Care Provider [phone] Encounter Details Date Type Department Care Team (Latest Contact Info) Description 06/09/2024 Travel Social History Tobacco Use Types Packs/Day [...] Upcoming Encounters Date Type Department Care Team ([facility] st Contact Info) Description 07/16/2024 11:30 AM EDT Office Visit [facility] MED & PEDS [address] [place] [address] Waleska Goldberg FNP [address] [place] [address] documented as of this encounter Visit Diagnoses Not on filedocumented in this encounter Additional Health Concerns Assessment Noted Time PHQ-9 Depression Total Score: 6 07/30/19 24 10:53 AM EDT documented as of this encounter Care Teams Temperature Control Inspector Relationship Specialty Start Date End Date Waleska Goldberg FNP [address] [place] [address] PCP - General Family Medicine 12/12/21 Gloria Flores Supervisor PaintSenior Front End Web Developer 03/13/23 documented as of this encounter
--- OUTSIDE RECORDS SUMMARY | 2024-06-24 10:29 | XMS_ITS | Encounter Summary ---
Author Organization [employer] Address [address] 7[address] [place] [address] Care Team Providers Care Manager Retail Sales Name Role Phone Waleska Goldberg Primary Care Provider [phone] Reason for Visit * Reason Comments Med Refill Encounter Details Date Type Department Care Team (Late st Contact Info) Description 09/28/2023 Refill [facility] MEDICINE [address] [place] [address] Waleska Goldberg FNP [address] [place], [place] [phone] Insomnia, unspecified type Social History Tobacco Use [...] Description 07/16/2024 11:30 AM EDT Office Visit [facility] MED & PEDS [address] [place] [address] Waleska Goldberg FNP [address] [place] [address] documented as of this encounter Visit Diagnoses Diagnosis Insomnia, unspecified type documented in this encounter Additional Health Concerns Assessment Noted Time PHQ-9 Depression Total Score: 6 07/30/19 24 10:53 AM EDT documented as of this encounter Care Teams Manager Retail Sales Relationship Specialty Start Date End Date Waleska Goldberg FNP [address] [place] [address] PCP - General Family Medicine 12/12/21 Gloria Flores Nurse AdministratorDirector Of Search Engine Marketing 03/13/23 documented as of this encounter
--- OUTSIDE RECORDS SUMMARY | 2024-06-24 10:29 | XMS_ITS | Encounter Summary ---
Author Organization [employer] Address [address] [facility] 7t [place] [address] Care Team Providers Care Harbor Boat Pilot Name Role Phone Waleska Goldberg Primary Care Provider [phone] Reason for Visit * Reason Comments Care Coordination Outreach Encounter Details Date Type Department Care Team (Latest Contact Info) Description 06/10/2024 Patient Outreach [facility] CHC MED & PEDS [address] [place], [place] [phone] Waleska Goldberg FNP [address] [place] [address] Care Coordination (Outreach) Social History Tobacco Use [...] encounter Progress Notes * Nichelle Garcia - 06/10/2024 1:09 PM EST CHW Nichelle Garcia , placed outbound call to patient in regards to offer services. CHW introducing herself from [facility] CM Department with CHW's name, department and direct contact [phone] requesting call back. Will re-attempt to contact within 5 days. and address not confirmed. documented in this encounter Plan of Treatment Upcoming Encounters Date Type Department Care Team ([facility] st Contact Info) Description 07/16/2024 11:30 AM EDT Office Visit [facility] CH[facility] MED & PEDS [address] [place] [address] Waleska Goldberg FNP [address] [place] [address] documented as of this encounter Visit Diagnoses Not on filedocumented in this encounter Additional Health Concerns Assessment Noted Time PHQ-9 Depression Total Score: 6 07/30/19 24 10:53 AM EDT documented as of this encounter Care Teams Harbor Boat Pilot Relationship Specialty Start Date End Date Waleska Goldberg FNP [address] [place] [address] PCP - General Family Medicine 12/12/21 Gloria Flores Drafting ClerkRing Facer 03/13/23 documented as of this encounter
--- OUTSIDE RECORDS SUMMARY | 2024-06-24 10:29 | XMS_ITS | Encounter Summary ---
Author Organization [employer] Address [address] [facility] 7t [place] [address] Care Team Providers Care Domestic Violence Counselor Name Role Phone Waleska Goldberg Primary Care Provider [phone] Reason for Visit * Reason Comments Med Refill Encounter Details Date Type Department Care Team (Late st Contact Info) Description 06/15/2024 Refill [facility] MEDICINE [address] [place] [address] Waleska Goldberg FNP [address] [place], [place] [phone] Type 2 diabetes mellitus without complication, with long-term current use of insulin ([facility]); Essential hypertension; Other hyperlipidemia Social History Tobacco Use Types Packs/Day Years [...] [facility] MED & PEDS [address] [place] [address] Waleska Goldberg FNP [address] [place] [address] documented as of this encounter Visit Diagnoses Diagnosis Type 2 diabetes mellitus without complication, with long-term current use of insulin ([facility]) Essential hypertension Unspecified essential hypertension Other hyperlipidemia documented in this encounter Additional Health Concerns Assessment Noted Time PHQ-9 Depression Total Score: 6 07/30/19 24 10:53 AM EDT documented as of this encounter Care Teams Domestic Violence Counselor Relationship Specialty Start Date End Date Waleska Goldberg FNP [address] [place] [address] PCP - General Family Medicine 12/12/21 Gloria Flores Traffic Sign Erection SupervisorLead Android Developer 03/13/23 documented as of this encounter
--- OUTSIDE RECORDS SUMMARY | 2024-06-24 10:29 | XMS_ITS | Encounter Summary ---
Author Organization [employer] Address [address] [facility] 7t [place] [address] Care Team Providers Care Wallpaper Scraper Name Role Phone Waleska Goldberg Primary Care Provider [phone] Reason for Visit * Reason Comments Med Refill Encounter Details Date Type Department Care Team (Late st Contact Info) Description 06/02/2024 Refill [facility] CHC MED & PEDS [address] [place], [place] [phone] Waleska Goldberg FNP [address] [place] [address] Fracture of left patella with routine healing [...] Upcoming Encounters Date Type Department Care Team ([facility] st Contact Info) Description 07/16/2024 11:30 AM EDT Office Visit [facility] MED & PEDS [address] [place] [address] Waleska Goldberg FNP [address] [place] [address] documented as of this encounter Visit Diagnoses Diagnosis Fracture of left patella with routine healing documented in this encounter Additional Health Concerns Assessment Noted Time PHQ-9 Depression Total Score: 6 07/30/19 24 10:53 AM EDT documented as of this encounter Care Teams Wallpaper Scraper Relationship Specialty Start Date End Date Waleska Goldberg FNP [address] [place] [address] PCP - General Family Medicine 12/12/21 Gloria Flores Svp Business DevelopmentUi Software Engineer 03/13/23 documented as of this encounter
--- OUTSIDE RECORDS SUMMARY | 2024-06-24 10:29 | XMS_ITS | Encounter Summary ---
Author Organization [employer] Address [address] [facility] 7t [place] [address] Care Team Providers Care Internal Medicine Nurse Name Role Phone Waleska Goldberg TELEMARKETING SALES REPRESENTATIVE Primary Care Provider [phone] Encounter Details Date Type Department Care Team ([facility] Contact Info) Description 06/01/2024 Telephone [facility] CHC MED & PEDS [address] [place], [place] [phone] Aileen Ford, RN [address] [place], [place] [phone] Social History Tobacco Use Types Packs/Day Years [...] Telephone Encounter - Aileen Ford RN - 06/01/2024 4:20 PM EST TC back to pt regarding message from PCP below, called via [employer] ID# [id number]. Pt advised of the message, verbalized understanding. documented in this encounter Plan of Treatment Upcoming Encounters Date Type Department Care Team (Late st Contact Info) Description 07/16/2024 11:30 AM EDT Office Visit [facility] MED & PEDS [address] [place] [address] Waleska Goldberg FNP [address] [place] [address] documented as of this encounter Visit Diagnoses Not on filedocumented in this encounter Additional Health Concerns Assessment Noted Time PHQ-9 Depression Total Score: 6 07/30/19 24 10:53 AM EDT documented as of this encounter Care Teams Internal Medicine Nurse Relationship Specialty Start Date End Date Waleska Goldberg FNP [address] [place] [address] PCP - General Family Medicine 12/12/21 Gloria Flores Tab Cutting Machine OperatorMachine Heel Seat Fitter 03/13/23 documented as of this encounter
--- OUTSIDE RECORDS SUMMARY | 2024-06-24 10:30 | XMS_ITS | Clinical Summary ---
Author Organization [employer] Address [address] [facility] [address] [place] [address] Care Team Providers Care Medical Billing Coordinator Name Role Phone Waleska Goldberg AMERICO Primary Care Provider [phone] Allergies No known active allergies Medications UltiGuard SafePack Pen Needle 32G X 4 MM miscIndications:T ype 2 diabetes mellitus without complication, with long-term current use of insulin (CMS/[facility]) USE DIRECTED 6 TIMES PER DAY 100 each 11 023 Active fluticasone (Flonase) 50 MCG/ACT nasal sprayIndications: Nasal congestion USE 1-2 SPRAYS IN EACH NOSTRIL [...] by mouth daily Active Continuous Blood Gluc Referral Manager (FreeStyle Alfredo 2 [place]) deviceIndications :Type 2 diabetes mellitus without complication, with long-term current use of insulin (CMS/HCC) Use to check blood glucose levels throughout the day 1 each 023 Active Continuous Blood Gluc Sensor (FreeStyle Alfredo 2 Sensor) miscIndications:T ype 2 diabetes mellitus without complication, with long-term current use of insulin ([facility]) Use to check blood sugar levels throughout the day 2 each 023 Active Blood Glucose Monitoring Suppl (FreeStyle [place] Lite) w/Device kitIndications:Ty pe 2 diabetes mellitus without complication, with long-term current use of insulin ([facility]) Use to test blood sugar [...] 3 024 Active Diclofenac Sodium 1 % gelIndications:Ar thralgia of hands, bilateral APPLY 2 GRAMS TOPICALLY TO HANDS 2-3 TIMES PER DAY NEEDED FOR PAIN 100 g 2 024 Active aspirin (Aspirin Low Dose) 81 MG chewable tabletIndications :Coronary arteriosclerosis, Chronic systolic heart failure ([facility]/HCC) TAKE 1 TABLET BY MOUTH EVERY MORNING 90 tablet 3 024 Active isosorbide mononitrate ER (Imdur) 60 MG 24 hr tabletIndications :Coronary arteriosclerosis, Chronic systolic heart failure ([facility]/HCC) TAKE 1 TABLET BY MOUTH EVERY MORNING 90 tablet 3 024 Active lisinopril 2.5 MG tabletIndications :Coronary arteriosclerosis, Chronic systolic heart failure (CMS/HCC) TAKE 1 TABLET BY MOUTH AT BEDTIME 90 tablet 3 024 Active naloxone (Narcan) 4 mg/0.1 mL nasal sprayIndications: Chronic bilateral low back pain, unspecified whether sciatica present Administer 1 spray (4 mg) into affected nostril(s) if needed for opioid reversal. May repeat every 2-3 minutes if needed, alternating nostrils, until medical assistance becomes available. 2 each 024 2024 Active Lantus SoloStar 100 UNIT/ML penIndications:Ty pe 2 diabetes mellitus treated with insulin ([facility]) INJECT 30 UNITS SUBCUTANEOUSLY ONCE DAILY 15 mL 4 Active insulin aspart (NovoLOG FLEXPEN) 100 UNIT/ML penIndications:Ty pe 2 diabetes mellitus without complication, with long-term current use of insulin ([facility]) INJECT 6 UNITS SUBCUTANEOUSLY 3 [...] day. Active ammonium lactate (Amlactin) 12 % creamIndications: Xerosis of skin Apply topically if needed for dry skin. Apply to feet 1-2 times per day. 140 g 3 025 2025 Active Flomax 0.4 MG 24 hr capsule Take 0.4 mg by mouth. Active metFORMIN (Glucophage) 500 MG tabletIndications :Type 2 diabetes mellitus without complication, with long-term current use of insulin ([facility]) TAKE 1 TABLET BY MOUTH TWICE DAILY IN THE MORNING AND IN THE EVENING WITH MEALS 180 tablet 3 Active TRUEplus Lancets 33G miscIndications:T ype 2 diabetes mellitus without complication, with long-term current use of insulin ([facility]) USE TO TEST BLOOD SUGAR FOUR TIMES DAILY 100 each 11 Active carvedilol (Coreg) 3.125 MG tabletIndications :Essential hypertension TAKE 1 TABLET BY MOUTH TWICE DAILY IN THE MORNING AND IN THE EVENING WITH FOOD 180 tablet 3 Active atorvastatin (Lipitor) 80 MG tabletIndications :Other hyperlipidemia TAKE 1 TABLET BY MOUTH EVERY EVENING FOR CHOLESTEROL 90 tablet Active glucose blood (FREESTYLE LITE) test stripIndications: Type 2 diabetes mellitus without complication, with long-term current use of insulin ([facility]) TEST BLOOD SUGAR FOUR TIMES DAILY AND NEEDED FOR BLOOD SUGAR <70 MG/dL 100 strip 11 Active Easy Touch Lancets 33G/Twist misc TEST BLOOD SUGAR 4 TIMES A DAY 100 each 11 023 2024 Discontinued glucose blood (FREESTYLE LITE) test strip TEST BLOOD SUGAR FOUR TIMES DAILY AND NEEDED FOR BLOOD SUGAR < 70 mg/dL 100 strip 11 023 2024 Discontinued metFORMIN (Glucophage) 500 MG tabletIndications :Type 2 diabetes mellitus without complication, with long-term current use of insulin (CMS/HCC) TAKE 1 TABLET BY MOUTH TWICE DAILY IN THE MORNING AND IN THE EVENING WITH MEALS 180 tablet 3 024 2024 Discontinued atorvastatin (Lipitor) 80 MG tabletIndications :Other hyperlipidemia TAKE 1 TABLET BY MOUTH EVERY EVENING BEFORE BED 90 tablet 3 024 2024 Discontinued carvedilol (Coreg) 3.125 MG tabletIndications :Essential hypertension TAKE 1 TABLET BY MOUTH TWICE DAILY IN THE MORNING AND IN THE EVENING WITH FOOD 180 tablet 3 024 2024 Discontinued oxyCODONE-acetami nophen (Percocet) 10-325 MG tabletIndications :Fracture of left patella with routine healing Take 1 tablet by mouth if needed at bedtime for severe pain for up to 6 days. 6 tablet 025 2024 Active Problems Patient Care Coordination No te Formatting of this note migh t be different from the original. C3/CM Yesenia Page RN Problem Noted Date Diagnosed Date Fracture of left patella with routine healing Overview (05/23/2024): Following with [facility] - Dr. Monahan Assessment & Plan (05/23/2024 1:51 PM EST): - Following with physical therapy - Pain control: NSAIDs contraindicated w/ cardiac hx, trial of APAP not effective/sufficient, agreed to send in 6 tablets of Percocet 10/325mg Qdaily PRN severe pain. Previous Narcan rx. Reviewed sparing use and med use and SE (risk of urinary retention reviewed, needs to first be evaluated in ED) Hyperlipidemia 04/08/2024 Closed fracture of tooth 03/02/2024 History of myocardial infarction 01/11/2024 Lumbar spondylosis 01/09/2024 Overview (05/23/2024): Feb 2024: Lumbar MRI completed: Multilevel lumbar spondylosis without significant spinal canal stenosis. Neural foraminal narrowing is worst and mild at L4-L5 bilaterally and on the left at L5-S1 Assessment & Plan (05/23/2024 1:49 PM EST): - Hx of spondylitic changes and disc protrusion in cervical spine, with pain in lumbar spine described as moderate to severe, (+) radiculopathy Assessment & Plan (01/11/2024 5:21 PM EDT): - Hx of spondylitic changes and disc protrusion in cervical spine, with pain in lumbar spine described as moderate to severe, (+) radiculopathy - Lumbar MRI pending - No current red flag symptoms, reviewed ED precautions - Previous trials: prednisone, avoid NSAIDs with hx [place], APAP not effective. - Plan: short course [...] knee 08/30/2023 Overview (04/16/2024): - Followed by [facility] - Plan for trial knee sleeve and activity modification. If no improvement with conservative measures, may consider injections - Consult Jan 2024: received steroid injection. Not good surgical candidate. Assessment & Plan (01/11/2024 5:18 PM EDT): Currently described as one of most painful sites of LLE. No red flag symptoms on exam today. Called and scheduled for appt with [facility] in 2 weeks. ED precautions sooner [...] precautions Healthcare maintenance 05/26/2023 Overview (04/16/2024): Dental: [facility] Dental Optometry: 10/07/22: SHELBY w/o diabetic retinopathy or diabetic macular edema. Colonoscopy: 05/30/22 at [facility] - Dr. Harrison. Plan to repeat in 1-2 years d/t poor prep. Referral to re-establish with GI sent 04/16/24. Assessment & Plan (08/30/2023 10:39 AM EDT): Declines COVID & PCV20 vaccines 08/29/23 Benign prostatic hyperplasia with urinary freque ncy 05/13/2022 Assessment & Plan (07/31/2023 7:22 PM EDT): Following with [facility] - Dr. Arboleda Continues with tamsulosin 0.4mg nightly Chronic pelvic pain in male 05/13/2022 Overview (08/29/2023): -Following with [facility] -Previous recommendation for pelvic floor physical [...] heart failure 04/17/2018 Overview (06/16/2022): -Followed by [facility] cardiology. Dr. Esteves -Hx of cardiac catheterization in [place] due to [place] that led to coronary artery bypass surgery -Had further cardiac cath in [place] in 2019 that led to stenting of OM2 branch. -Pt to continue anticoagulation and nitroglycerin as needed through Cards Coronary arteriosclerosis 04/17/2018 Diabetic neuropathy 04/17/2018 Essential hypertension 04/17/2018 Generalized ischemic myocardial dysfunction 07/2018 S/P CABG x 5 04/17/2018 Type 2 diabetes mellitus 04/17/2018 Overview (04/16/2024): -Previously followed by [facility] for management, although previous provider left and have not yet established with new provider -Reports BG readings usually ~120 fasting, and then around 100-200 throughout the day -Current regimen includes: -30 units nightly lantus -Novolog 6 units before meals -metformin 500mg BID -CGM approved, plan for initial teaching and device application 08/14/22 at [facility] Pharmacy -Podiatry: referral placed 06/05/22 -Optometry: last CEE September 2022 ([facility]) Lab Results Component Value Date [...] Resolved Date Rheumatoid arthritis involving multiple sites 08/18/19 23 08/17/2022 Overview (08/17/2022): ?? Followed by [facility] Pain Management Abdominal pain of unknown cause 05/13/2022 08/30/2023 UTI symptoms 05/13/2022 06/16/2022 Pain in joint of left shoulder 11/19/2018 06/16/2022 Inguinal lymphadenopathy 08/27/201808/2022 Trigger ring finger of right hand 06/08/2018 06/16/2022 Encounters Date Type Department Care Team Description 06/15/2024 Refill [facility] [address] [place] [address] Waleska Goldberg FNP Type 2 diabetes mellitus without complication, with long-term current use of insulin ([facility]); Essential hypertension; Other hyperlipidemia 06/10/2024 Patient Outreach [facility] [address] [place] [address] Waleska Goldberg FNP Care Coordination (Outreach) 06/09/2024 Travel 06/07/2024 Refill [facility] [address], [place] [phone] Waleska Goldberg, [employer] Fracture of left patella with routine healing 06/02/2024 Refill [facility] [address], [place] [phone] Waleska Goldberg, [employer] Fracture of left patella with routine healing 06/01/2024 Telephone [facility] [address], [place] [phone] Aileen Ford RN 06/01/2024 Refill [facility] [address] [place] [address] Waleska Goldberg, [employer] Fracture of left patella with routine healing 05/24/2024 Patient Outreach [facility] [address], [place] [phone] Waleska Goldberg FNP Transition Of Care (Tcm) 05/24/2024 Patient Outreach [facility] [address], [place] [phone] Waleska Goldberg FNP Transition Of Care (Tcm) 05/21/2024 3:30 PM EST Office Visit [facility] [address], [place] [phone] Waleska Goldberg FNP Suprapubic pain (Primary Dx); Benign prostatic hyperplasia with urinary frequency; Lumbar spondylosis; Fracture of left patella with routine healing; Urinary retention 05/21/2024 Travel 05/21/2024 Orders Only GENERIC EXTERNAL DATA DEPARTMENT Provider, Generic External Data 05/20/2024 Patient Outreach [facility] [address], [place] [phone] Waleska Goldberg FNP Care Coordination (Outreach) 05/10/2024 Telephone [facility] [address], [place] [phone] Waleska Goldberg FNP Urology Referral: Urgent 05/10/2024 Patient Outreach [facility] [address], [place] [phone] Waleska Goldberg FNP Transition Of Care (Tcm) 05/06/2024 Telephone [facility] [address] [place] [address] Waleska Goldberg FNP TC: HDF 05/06/2024 Telephone [facility] [address] [place] [address] Waleska Goldberg FNP Med Refill 05/06/2024 Patient Outreach [facility] [address] [place] [address] Waleska Goldberg FNP Care Coordination (Outreach) 05/05/2024 Refill [facility] [address] [place] [address] Waleska Goldberg FNP Fracture of left patella with routine healing 05/04/2024 Patient Outreach [facility] [address] [place] [address] Waleska Goldberg FNP Transition Of Care (Tcm) (HDF- scheduled and SDOH screening positive and Tobacco screening negative) 05/04/2024 Telephone [facility] [address] [place] [address] Waleska Goldberg FNP Hospital Follow-up 04/30/2024 Patient Outreach [facility] [address] [place] [address] Waleska Goldberg FNP Care Coordination (Outreach) 04/26/2024 Telephone [facility] [address] [place] [phone] Waleska Goldberg FNP 04/23/2024 2:30 PM EST Telemedicine [facility] [address] [place] [address] Waleska Goldberg FNP Fracture of left patella with routine healing (Primary Dx); Insomnia, unspecified type 04/23/2024 Telephone [facility] [address] [place] [address] Waleska Goldberg FNP 04/23/2024 Travel 04/19/2024 Telephone [facility] [address] [place] [address] Waleska Goldberg FNP 04/19/2024 Telephone [facility] [address] [place] [phone] Waleska Goldberg FNP 04/16/2024 2:00 PM EST Office Visit [facility] [address] [place] [address] Waleska Goldberg FNP Cellulitis of right foot (Primary Dx); Fracture of left patella with routine healing; Type 2 diabetes mellitus without complication, with long-term current use of insulin ([facility]); Healthcare maintenance; Colon cancer screening; Xerosis of skin 04/16/2024 Orders Only [facility] [address] [place] [address] Provider, MD Aleisha 04/16/2024 Travel 04/15/2024 Telephone [facility] [address], [place] [phone] Luann Muñiz MA Chart Prep 04/02/2024 Telephone [facility] [address] [place], [place] [phone] Shruthi Banerjee, hothouse worker 03/29/2024 Patient Outreach [facility] [address] [place] [address] Waleska Goldberg FNP Pre-visit Planning (HDF scheduled, SDOH unable to complete. ) from Last 3 Months Immunizations Name Administration [...] 05/21/2024 3:33 PM EST Plan of Treatment Upcoming Encounters Date Type Department Care Team (Late st Contact Info) Description 07/16/2024 11:30 AM EDT Office Visit [facility] [address] [place] [address] Waleska Goldberg, [employer] [address] [place] [address] Health Maintenance Due Date Last Done Comments [...] history exists Depression Screening 07/29/2024 07/30/2023, 07/30/19 24 Eye Exam 10/07/2024 10/07/2022, 09/13, 10/07/2022, Additional [...] POCT GLUCOSE Routine 05/21/2024 4:53 PM EST Suprapubic pain POCT URINALYSIS DIPSTICK Routine 05/21/2024 4:49 PM EST Suprapubic pain GLUCOSE, WHOLE BLOOD Routine 05/21/2024 1:35 PM [...] complication, with long-term current use of insulin ([facility]) POCT GLUCOSE Routine 04/16/2024 2:35 PM EST Type 2 diabetes mellitus without complication, with long-term current use of insulin ([facility]) PROPHYLAXIS - ADULT Routine 06/26/2023 8 :00 AM EDT Dental calculus INTRAORAL - COMPLETE SERIES OF RADIOGRAPHIC IMAGES Routine 06/26/2023 8:00 AM EDT PERIODIC ORAL EVALUATION - ESTABLISHED PATIENT Routine 09/05/2022 9:30 AM EDT Encounter for dental examination Dental caries Malocclusion Bruxism HM COLONOSCOPY Routine 05/30/2022 9:04 PM EST [facility] HISTORICAL MICROALBUMIN/CREATININ E RATIO, RANDOM URINE Routine 08/06/2021 8:19 AM EDT [facility] Routine 05/07/2021 9:10 AM [...] / Unknown 05/21/2024 4:53 PM EST Result [facility] Waleska Goldberg [facility] POINT OF CARE TEST ENTER/EDIT ORDERABLES Final [...] Media Lot # [id number] Lot# Expiration Date 3312,[id number] Urine 05/21/2024 4:49 PM EST Waleska Anaarcelia [employer] POINT OF CARE TEST ENTER/EDIT ORDERABLES Final Result * (ABNORMAL) Glucose, Whole Blood (05/21/2024 1:35 PM EST) Glucose, Whole Blood 318(H) 60 - 115 mg/dL [facility] Comment:METER #: [id number] 05/21/2024 1:35 PM EST 05/21/2024 1:39 PM EST Generic External Data Provider LAB BLOOD ORDERAB LES Final Result Performing Organization Address City/State/[facility] Co de Phone Number [facility] [address] [place] [phone] * (ABNORMAL) Urinalysis, Complete, with Reflex to Culture (05/21/2024 11:43 AM EST) Color Urine Yellow [facility] Appearance Urine Clear [facility] PH 5.5 5.0 - 9.0 [facility] Glucose Urine UA >=1000(A) Negative mg/dL [facility] Urine Blood Negative Negative [facility] Specific [place] - Urine >=1.030(H) 1.005 - 1.025 [facility] Urine Protein Negative Neg-Trace mg/dL [facility] Urine Ketones Negative Negative mg/dL [facility] Nitrite Urine Negative Negative [facility] Leukocyte Esterase Urine Negative Negative [facility] RBC Urine 0-2 0 - 2 /HPF [facility] Urine WBC 0-5 0 - 5 /HPF [facility] Urine Squamous Epithelial Cell 0-2 0 - 2 /HPF [facility] Urine Bacteria None Seen None Seen [facility] Hyaline Casts, Urine 0-2 0 - 2 /LPF [facility] 05/21/2024 11:4 3 AM EST 05/21/2024 11:49 AM EST Narrative [facility] - 05/21/2024 12:15 PM EST [id number], [employer] C[employer] us Generic External Data Provider LAB URINE ORDERAB LES Final Result [facility] [address] [place] [address] [phone] * (ABNORMAL) CBC auto differential (05/21/2024 11:43 AM EST) White Blood Count 6.1 4.8 - 10.8 X10*3/uL [facility] Red Blood Count 5.10 4.60 - 5.80 X10*6/uL [facility] Hemoglobin 15.7 14.0 - 18.0 g/dl [facility] Hematocrit 44.8 42.0 - 52.0 % [facility] Mean Corpuscular Volume 87.8 80.0 - 98.0 fL [facility] Mean Corpuscular Hemoglobin 30.8 27.0 - 33.0 pg [facility] Mean Corpuscular HGB Conc 35.0 31.0 - 36.0 g/dl [facility] Red Cell Distribution Width 12.3 11.0 - 16.0 % [facility] Platelet Count 189 160 - 400 X10*3/uL [facility] Mean Platelet Volume 10.7 9.4 - 12.4 fL [facility] Neutrophils Percent Auto 64.5 45 - 73 % [facility] Imm Gran Pct Auto 0.5(H) 0.0 - 0.4 % [facility] Lymphocytes Percent Auto 23.3 20 - 40 % [facility] Monocytes Percent Auto 6.9 2 - 11 % [facility] Eosinophils Percent Auto 4.1(H) 0 - 4 % [facility] Basophils Percent Auto 0.7 0 - 2 % [facility] NRBC Pct Auto 0.0 0.0 - 0.2 /100WBC [facility] Neutrophils Absolute Auto 3.9 2.0 - 8.3 x10*3/uL [facility] Imm Gran Abs Auto 0.03 0.00 - 0.03 X10*3/uL [facility] Lymphocytes Absolute Auto 1.4 1.2 - 4.9 X10*3/uL [facility] Monocytes Absolute Auto 0.4 0.1 - 1.2 X10*3/uL [facility] Eosinophils Absolute Auto 0.3 0.0 - 0.4 X10*3/uL [facility] Basophils Absolute Auto 0.0 0.0 - 0.2 X10*3/uL [facility] NRBC Abs Auto 0.000 0.0 - 0.012 X10*3/uL [facility] 05/21/2024 11:4 3 AM EST 05/21/2024 11:49 AM EST Generic External Data Provider LAB BLOOD ORDERAB LES Final Result Performing Organization Address [facility] de Phone Number [facility] [address] [place] [phone] * Magnesium (05/21/2024 11:43 AM EST) Magnesium 2.0 1.6 - 2.6 mg/dL [facility] 05/21/2024 11:4 3 AM EST 05/21/2024 11:49 AM EST Generic External Data Provider LAB BLOOD ORDERAB LES Final Result Performing Organization Address [facility] de Phone Number [facility] [address] [place] [phone] * Lipase (05/21/2024 11:43 AM EST) Lipase 35 8 - 78 U/L [facility] 05/21/2024 11:4 3 AM EST 05/21/2024 11:49 AM EST Generic External Data Provider LAB BLOOD ORDERAB LES Final Result Performing Organization Address [facility]/State/ZIP Co de Phone Number [facility] [address] [place] [phone] [phone] * (ABNORMAL) Comprehensive Metabolic Panel (05/21/2024 11:43 AM EST) Sodium 134(L) 135 - 145 mmol/L [facility] Potassium 4.1 3.3 - 5.1 mmol/L [facility] Chloride 107 96 - 108 mmol/L [facility] Carbon Dioxide 22 22 - 29 mmol/L [facility] Anion Gap 9(L) 12 - 20 [facility] Urea Nitrogen (BUN) 19(H) 9 - 16 mg/dL [facility] Creatinine, Serum 1.04 0.5 - 1.4 mg/dL [facility] Creatinine Clr Calc Pharmacy 74.7 [facility] Comment:eGFR (calculated fro m the MDRD study equation) and eCrCl(calculated from the Cockcroft-Gault equation) are based ondifferent parameters and may not yield comparable results.If eCrCl result is absurd, please check patient'sheight/weight. Estimated Glomerular Filt Rate >60 [facility] Comment:Chronic Kidney Disea se: Estimated GFR < 60 mL/min/[id number] Kidney Disease: Estimated GFR < 15 mL/min/1.73m2 Glucose 296(H) 60 - 115 mg/dL [facility] Calcium 9.0 8.4 - 10.2 mg/dL [facility] Bilirubin, Total 1.7(H) 0.0 - 1.0 mg/dL [facility] Aspartate Amino Transferase 21 5 - 37 U/L [facility] Alanine Aminotransferase 23 0 - 40 U/L [facility] Total Protein 7.4 6.5 - 8.0 g/dL [facility] Albumin Level 4.2 3.5 - 5.0 g/dL [facility] Alkaline Phosphatase 142(H) 39 - 117 U/L [facility] 05/21/2024 11:4 3 AM EST 05/21/2024 11:49 AM EST Generic External Data Provider LAB BLOOD ORDERAB LES Final Result [facility] LABS [address] [place] [address] [phone] * (ABNORMAL) POCT HGB A1C (04/16/2024 2:38 PM EST) Hemoglobin A1C 8.3(A) 4.0 - 6.0 % QC Media Lot # [id number] Lot# Expiration Date [id number] Blood 04/16/2024 2:38 PM EST Waleska Goldberg WELDER MANUFACTURE POINT OF CARE TEST ENTER/EDIT ORDERABLES Final Result * Hm Colonoscopy (05/30/2022 9:04 PM EST) Historical Provider HEALTH MAINTENANCE Final Result * MICROALBUMIN/CREATININE RATIO, RANDOM URINE (08/06/2021 8:19 AM EDT) Creatinine Urine 104.90 mg/dL [facility] Microalbum/Creati nine Ratio Ur 8.5 ug/mg cr [facility] Comment: ?Albumin/Creatinine Ratio Reference Ranges: ? Normal: < 30 ug/mg creatinine ? Microalbuminuria: ??30 - 300 ug/mg creatinine Clinical Albuminuria: ??> 300 ug/mg creatinine Microalbumin Urine 9.0 mg/L [facility] 08/06/2021 8:19 AM EDT Historical Provider HISTORICAL/NON ORDERABLE LABS Final Result [facility] [address] * (ABNORMAL) LIPID PANEL (05/07/2021 9:10 AM EST) Cholesterol 113 mg/dL [facility] Comment: Desirable Cholesterol: ?less than 200 mg/dL Borderline High Cholesterol: ??200-239 mg/dL High Cholesterol: ? greater than 239 mg/dL HDL Cholesterol 27 mg/dL [facility] Comment: Desirable HDL: ??greater than 40 mg/dL ?? Note: This HDL assay may give artificially ? low results in patients with liver disease. LDL Cholesterol Calculated 71 mg/dl [facility] Comment: Desirable LDL: ? less than 100 mg/dL Near Optimal/Above Optimal LDL: ??110-129 mg/dL Borderline High LDL: ? 130-159 mg/dL High LDL: ?160-189 mg/dL Very High LDL: ? greater than or equal to ?190 mg/dL Triglycerides 77 mg/dL [facility] Comment: Desirable Triglyceride: ? less than 150 mg/dL Borderline High Triglyceride ??150-199 mg/dL High Triglyceride: ?200-499 mg/dL Very High Triglyceride: ? greater than or equal to ? 5OO mg/dL Alanine Aminotransferase 23 0 - 40 U/L [facility] Albumin Level 4.4 3.5 - 5.0 g/dL [facility] Alkaline Phosphatase 109 39 - 117 U/L [facility] Anion Gap 12 12 - 20 [facility] Aspartate Amino Transferase 21 5 - 37 U/L [facility] Bilirubin Total 2.0(H) 0.0 - 1.0 mg/dL [facility] Blood Urea Nitrogen 23(H) 9 - 16 mg/dL [facility] Calcium 9.1 8.4 - 10.2 mg/dL [facility] Carbon Dioxide 25 22 - 29 mmol/L [facility] Chloride 109(H) 96 - 108 mmol/L [facility] Creatinine, Serum 0.96 0.5 - 1.4 mg/dL [facility] Estimated Glomerular Filt Rate >60 [facility] Comment: NOTE: ??For -[place] individuals, multiply the result ?by 210. ?? Chronic Kidney Disease: ??Estimated GFR < [...] Historical Provider HISTORICAL/NON ORDERABLE LABS Final Result Performing Organization Address City/State/[facility] Co de Phone Number [facility] [address] from Last 3 Months or Most Recently Relevant to Health Maintenance Insurance [facility] C[place] AD[place] Care Teams Medical Billing Coordinator Relationship Specialty Start Date End Date Waleska Goldberg FNP [address] [place] [id number] PCP - General Family Medicine 12/12/21 Gloria Flores Clean Rice Grader And Reel TenderWaste Machine Operator 03/13/23
--- OUTSIDE RECORDS SUMMARY | 2024-06-24 10:30 | XMS_ITS | Encounter Summary ---
Author Organization [employer] Address [address] [facility] [address] [place] [address] Care Team Providers Care Station Usher Name Role Phone Waleska Goldberg CARRIER BLOWER Primary Care Provider [phone] Encounter Details Date Type Department Care Team ([facility] st Contact Info) Description 04/16/2024 Orders Only [facility] [address] [place], [place] [phone] Provider, MD Aleisha Social History Tobacco Use [...] Description 07/16/2024 11:30 AM EDT Office Visit [facility] [address] [place], [place] [phone] Waleska Goldberg FNP [address] [place] [address] documented as of this encounter Procedures Procedure [...] documented as of this encounter Care Teams Station Usher Relationship Specialty Start Date End Date Waleska Goldberg FNP [address] [place] [address] PCP - General Family Medicine 12/12/21 Gloria Flores Title I ParaprofessionalRetail Coordinator 03/13/23 documented as of this encounter
== END 2024-06-24 08:27 | disposition home or self-care (01) ==
LOC: HO.XRAY 08:26
PROVIDERS: Absent Provider Orthopaedic Surgery; PCP Registered Nurse; Visit Provider Nurse Practitioner Family
DX: I25.10 Atherosclerotic heart disease of native coronary artery without angina pectoris (principal); I25.5 Ischemic cardiomyopathy; E78.5 Hyperlipidemia, unspecified; I10 Essential (primary) hypertension; R07.2 Precordial pain; Z95.1 Presence of aortocoronary bypass graft; Z79.899 Other long term (current) drug therapy; M79.672 Pain in left foot
CPT/HCPCS: 73630; 93005; 99212

== ENCOUNTER → 2024-06-24 09:10 | Outpatient (BNV) | payer MEDICAID, SELFPAY | PROVIDERS: Absent Provider Orthopaedic Surgery; PCP Registered Nurse; Visit Provider Radiology Diagnostic Radiology | DX: M79.672 Pain in left foot (principal); M77.32 Calcaneal spur, left foot | CPT/HCPCS: 73630 ==

== ENCOUNTER → 2024-07-05 08:20 | Outpatient (REF) | payer MEDICAID, SELFPAY ==
--- NOTE | 2024-07-05 08:35 | CA_ITS ---
Transthoracic Echocardiogram Patient (Last, First, Middle): Barrett Goldman A Gender: Male Date of : 1965 Age: 59 Procedure Date: 07/05/2024 Procedure Type: Transthoracic Echocardiogram Location: OP Height: 172.72 cm Weight: 80.74 kg BSA: 1.95 m2 Heart Rate: bpm BP: 116 / 60 mmHg Ophthalmic Pathologist: ОЛЬГА Referring MD: Chely Randhawa HEEL BURNISHER-Georgi Assessor: George Heart MD Symptoms: Z95.1 - Presence of aortocoronary bypass graft Study Quality: Adequate ECG Rhythm: Sinus Conclusions: - 1. Mildly reduced LV ejection fraction 45-50% with impaired relaxation filling pattern with underlying regional wall motion abnormality consistent with coronary artery disease 2. Normal cardiac valvular Dopplers 3. Normal measured RV systolic pressure 4. No gross pericardial effusion Findings Left Ventricle Normal left ventricular cavity size. There is normal left ventricular wall thickness. The left ventricular systolic function is mildly decreased. The visually estimated ejection fraction is between 45-50%. Spectral Doppler is indicative of an impaired relaxation filling pattern. E/E prime ratio is between 8 and 15 consistent with indeterminate filling pressures. Wall Motion Rest Echo Findings The mid inferoseptal segment is hypokinetic. The inferolateral wall, the basal inferior, mid inferior, and basal inferoseptal segments are akinetic. All other scored wall segments showed normal motion. Right Ventricle Normal right ventricular cavity size and systolic function. Atria The left atrium is likely dilated. There is no evidence of interatrial shunt. The right atrium is normal in size. Aortic Valve Normal aortic valve structure and function. There is no aortic valve stenosis. There is no aortic valve regurgitation. Mitral Valve Normal mitral valve structure and function. There is trace mitral valve regurgitation. There is no mitral valve stenosis. Pulmonic Valve The pulmonic valve is likely normal. There is trace pulmonic valve regurgitation. Tricuspid Valve Normal tricuspid valve structure. There is trace tricuspid valve regurgitation. The right ventricular systolic pressure is normal. The right ventricular systolic pressure is 13 mmHg. Normal right atrial pressure. There is no evidence of pulmonary hypertension. Great Vessels All visible segments of the aorta are normal in size. The pulmonary artery was not well visualized. Venous The inferior vena cava is normal in size and collapses greater than 50% with inspiration. Pericardium/Pleural There is no evidence of pericardial effusion. Prior Study Comparison No significant change compared to prior study dated: 08/07/2021. Measurements 2D Linear Measurements IVSd: 1.00 0.6-0.9/0.6-1.0 cm LVIDd: 5.20 3.9-5.3/4.2-5.9 cm LVIDd Index: 2.67 2.4-3.2/2.2-3.1 cm/m2 LVIDs: 4.19 2.0-3.6 cm LVPWd: 0.90 0.7-1.1 cm Ao Root: 3.30 2.1-3.5 cm LA Diam: 3.80 2.7-3.8/3.0-4.0 cm LAIDs Index: 1.95 1.5-2.3 cm/m2 LV Mass: 225.84 67-162/88-224 g LV Mass Index: 115.81 43-95/49-115 g/m2 LVOT Diam: 2.10 3.0+(-)1.3 cm 2D Systolic Function EF 4C: 58.60 >55% EF 2C: 35.10 >55% EF BiP: 48.10 >55% Mitral Valve MV Pk E: 0.64 MV PK A: 0.70 MV Decel Time: 207.00 E/A: 0.90 E'Lateral: 10.10 E'Medial: 3.70 E/E' Med: 17.20 E/E' Lat: 6.30 PHT: 61.00 MVA PHT: 3.61 Decel [place]: 3.08 LVOT LVOT Pk Fareed: 0.73 LVOT Mn Fareed: 0.48 LVOT VTI: 0.17 LVOT Pk Grad: 2.00 LVOT Mn Grad: 1.00 LVOT Diam: 2.10 LVOT Area: 3.46 Diastolic Function MV Pk E: 0.64 MV Pk A: 0.70 E/A: 0.90 E'Medial: 3.70 E/E' Med: 17.20 E' Laterial: 10.10 E/E' Lat: 6.30 Right Ventricle TAPSE (mm): 25.00 Tricuspid Valve TR Pk Fareed: 1.59 TR Pk Grad: 10.00 RA Press: 3.00 RVSP: 13.00 Great Vessels Aorta Ao Root-2D: 3.30 2.0-3.7 cm Ao Asc: 3.20 2.1-3.4 cm Pulmonary Valve PV Pk Fareed: 0.84 Peak PV Grad: 3.00 Updated in Other Vendor System with Status of Final George Heart MD electronically signed on 07/06/2024 1:44:56 PM with status of Final
== END ==
LOC: HO.CARD 08:20
PROVIDERS: PCP Registered Nurse; Visit Provider Nurse Practitioner Family
DX: I25.5 Ischemic cardiomyopathy (principal); Z95.1 Presence of aortocoronary bypass graft
CPT/HCPCS: 93306

== ENCOUNTER → 2024-07-05 08:35 | Outpatient (BNV) | payer MEDICAID, SELFPAY | PROVIDERS: PCP Registered Nurse; Visit Provider Internal Medicine Cardiovascular Disease | DX: I25.10 Atherosclerotic heart disease of native coronary artery without angina pectoris (principal) | CPT/HCPCS: 93306 ==

== ENCOUNTER 2024-07-13 12:49 | Outpatient (AMB) | payer MEDICAID, SELFPAY ==
--- NOTE | 2024-07-13 13:09 | MHC.OFFVIS ---
Intake Visit Reasons: Cysto/PVR Intake Note: Patient is present for Cystoscopy/PVR Urology Medication:TADALAFIL,POTASSIUM Antibiotic Allergy:NONE Blood Thinner:ASPIRIN TODAY'S PVR:55ML'S Lot:[id number] Exp:08/20/26 Strip Picker Required: No Allergies No Known Allergies [No Known Allergies*] Allergy (Verified 09/07/24 23:37) HPI Comments Details: Barrett is a pleasant Maldivian-speaking male. He is a patient of Dr. Basilio. He is seen for following urologic conditions - lower urinary tract symptoms - erectile dysfunction - background diabetes with long-term insulin use Maldivian translation provided by qualified medical record consultant Primary problem is bladder instability with pain Here for cystoscopy PVR 55 cc. Open bladder neck Responses atypical Trial daily tadalafil - no contraindication as sublingual Nitrite is p.r.n. UA today 2+ glucose, spec graft 130 PVR 0 cc Finasteride and doxazosin 8 mg Prostate 35 cc Has questions about erectile dysfunction. Background diabetes. Long-term insulin use. Start 10 mg daily tadalafil Check testosterone levels Lower urinary tract symptoms History of incomplete bladder emptying with weakness of stream Previously seen at [facility] for urinary retention with 600 cc and Bender catheter use in 2022 Managed with doxazosin 4 mg daily, finasteride initiated at time of retention Imaging 05/07 - Mild diffuse thickening and mucosal irregularity of the bladder wall. Bilateral ureteral jets are demonstrated. Prevoid bladder volume is 235 mL. Postvoid bladder volume is 35.5 mL. Prostate volume 35.6 mL. Cystoscopy 06/07 open bladder neck [facility] Medical History (Updated 08/20/24 @ 00:01 by Chuckie Valle) History of colon polyps Ischemic cardiomyopathy Atherosclerotic cardiovascular disease History of pancreatitis Hepatitis B Hepatitis C Chronic HFrEF (heart failure with reduced ejection fraction) Cardiomyopathy Type 2 diabetes mellitus with hyperglycemia, with long-term current use of insulin Type 2 diabetes mellitus with diabetic polyneuropathy Hyperlipidemia LDL goal <70 Essential hypertension Myocardial infarction Surgical History Hx of colonoscopy History of appendectomy Hx of heart artery stent H/O coronary artery bypass surgery H/O cardiac catheterization Family History Mother Diabetes Social History Household Members: Spouse Alcohol intake: never Patient Tobacco Use Status: Never used Tobacco Advance Directives: No Advance Directives Information Provided: No Do you have a plan to hurt others: No Plan Current occupational status: unemployed Office Procedures Cystoscopy Consent Discussed risk and benefit or proposed procedure with the patient. Information consent for procedure given to the patient. Discussed technical aspects, risks, benefits and alternatives in full. Addressed all of the patient's questions and concerns regarding the procedure. The patient demonstrated knowledge and understanding. They wish to proceed with this procedure. Preparation The patient was prepped in the usual manner. A assistant research scientist was present and in the room. Genitalia was prepped with betadine solution in a sterile manner. Lidocaine Jelly 2% was placed into the urethra and 16Fr flexible Olympus cystoscope was inserted into the meatus after adequate lubrication. Procedure Cystoscopy performed using a disposable Urovue digital 16 Irish cystoscope. Meatus circumcised Urethra anterior and posterior urethra normal Prostatic Urethra open bladder neck Bladder examination with retroflexion of cystoscope Bladder Orifices normal shape and position Bladder Capacity Normal Trabeculations Grade 0 Cellule Formation None Diverticulum Formation None Mucosal Erythema None Bladder Tumor None 56516-Nwsltstadk DISPOSABLE SCOPE URO-G FLEXIBLE SCOPE Procedure code (CPT) selection complete Post Void Residual Post Residual Void Post Void Residual (PVR): 55 68745-Cyiz Void Residual by ultrasound Office Meds lidocaine HCl 2 % mucosal jelly in applicator Performing Provider: Nigel Arboleda MD Performing Location[facility] Administered by: Blue Yee LPN on 07/13/24 13:33 Dose Route Admin Location Dispensed Lot Number Expiration Date ND Budget Technician 10 mL intra-urethral 10 mL nitrofurantoin monohydrate/macrocrystals 100 mg capsule Performing Provider: Nigel Arboleda MD Performing Location: [facility] Administered by: Blue Yee LPN on 07/13/24 13:33 Dose Route Admin Location Dispensed Lot Number Expiration Date ND Budget Technician 100 mg PO 1 cap Results AMB Urinalysis, Automated UA Leukoctes 0 Keri/uL Last Edit by CANDY Duval on 07/13/24 16:19 UA Nitrite Negative Last Edit by CANDY Duval on 07/13/24 16:19 UA Urobilinogen 0.2 mg/dL Last Edit by CANDY Duval on 07/13/24 16:19 UA Protein 0 mg/dL Last Edit by Vij[facility]ar [facility] on 07/13/24 16:19 UA pH 6.0 Last Edit by Vijay Prabhakar [facility] on 07/13/24 16:19 UA Blood 0 Jarett/uL Last Edit by Vijay Prabhakar, [facility] on 07/13/24 16:19 UA Specific [place] 1.015 Last Edit by Vijay Prabhakar [facility] on 07/13/24 16:19 UA Ketone Negative Last Edit by Vijay Pr[facility]hakar [facility] on 07/13/24 16:19 UA Bilirubin 0 mg/dL Last Edit by Vijay Prabhakar [facility] on 07/13/24 16:19 UA Glucose 0 mg/dL Last Edit by Vijay Prabhakar [facility] on 07/13/24 16:19 Results Reviewed Results Reviewed: Laboratory Last Values Urine pH (Auto) 6.0 07/13/24 16:18 Specific [place] (Auto) 1.015 07/13/24 16:18 Urine Protein (Auto) 0 mg/dL 07/13/24 16:18 Glucose (UA)(Auto) 0 mg/dL 07/13/24 16:18 Urine Ketones (Auto) Negative 07/13/24 16:18 Urine Blood (Auto) 0 Jarett/uL 07/13/24 16:18 Urine Nitrite (Auto) Negative 07/13/24 16:18 Urine Bilirubin (Auto) 0 mg/dL 07/13/24 16:18 Urine Urobilinogen (Auto) 0.2 mg/dL 07/13/24 16:18 Leukocyte Esterase (Auto) 0 Keri/uL 07/13/24 16:18 Assessment & Plan Assessment & Plan (1) Urinary urgency: Code(s): R39.15 - Urgency of urination Category: Medical (2) Bladder outlet obstruction: Code(s): N32.0 - Bladder-neck obstruction Category: Medical Plan Three-month follow-up PVR Orders: Orders AMB Cystoscopy 07/13/24 N40.0 - Benign prostatic hyperplasia without lower urinary tract symptoms, R33.9 - Retention of urine, unspecified, N32.0 - Bladder-neck obstruction, R39.15 - Urgency of urination AMB Urinalysis Automated 07/13/24 Z13.9 - Encounter for screening, unspecified Patient Instructions: This note is constructed using voice recognition software. While every effort has been made to ensure accuracy silica spray mixer errors may have been included. Imaging studies, laboratory and physical exam results were discussed and reviewed in detail. No major barriers to patient understanding were identified. An opportunity to ask questions regarding the treatment plan was provided. All questions were answered. The patient expressed understanding and agreement with the above treatment plan. The patient is aware they should contact our office by phone for worsening of their current condition or the appearance of new urologic symptoms. Compliance is encouraged with any medications and followup testing that is ordered. It is a privilege to participate in the urologic care of your patient. If you have any questions or concerns regarding treatment for the above conditions, or other urologic issues, please do not hesitate to contact me. The office telephone contact is [phone]. Sincerely, Dr Nigel Arboleda MD, [facility] - Urology Compassionate Specialist Care for the Genitourinary System Coding Level of Care Code Est Pt Level 3 (49185) Diagnoses Urinary urgency R39.15 Bladder outlet obstruction N32.0 CPT Codes Cystoscopy - CPT: 71532-Awqfidxkai ([id number]) Post Residual Void - PVR CPT Code: 67651-Heqj Void Residual by ultrasound ([id number])
--- OUTSIDE RECORDS SUMMARY | 2024-07-13 14:57 | XMS_ITS | Encounter Summary ---
Author Organization [email or web address] Address [address] [place] [address] Care Team Providers Care Mental Health Case Manager Name Role Phone Waleska Goldberg Primary Care Provider [phone] Reason for Visit * Reason Comments Care Coordination Outreach Encounter Details Date Type Department Care Team (Latest Contact Info) Description 07/13/2024 Patient Outreach [facility] [address] [place] [address] Waleska Goldberg FNP [address] [place], [place] [phone] Care Coordination (Outreach) Social History Tobacco Use [...] encounter Progress Notes * Nichelle Garcia - 07/13/2024 11:35 AM EDT CHW Nichelle Garcia , placed outbound call to patient in regards to offer services. CHW introducing herself from [facility] CM Department with CHW's name, department and direct contact [phone] requesting call back. Will re-attempt to contact within 5 days. and address not confirmed. documented in this encounter Plan of Treatment Upcoming Encounters Date Type Department Care Team ([facility] st Contact Info) Description 07/16/2024 11:30 AM EDT Office Visit [facility] MED & PEDS [address] [place] [address] Waleska Goldberg FNP [address] [place] [address] documented as of this encounter Visit Diagnoses Not on filedocumented in this encounter Additional Health Concerns Assessment Noted Time PHQ-9 Depression Total Score: 6 07/30/19 24 10:53 AM EDT documented as of this encounter Care Teams Mental Health Case Manager Relationship Specialty Start Date End Date Waleska Goldberg FNP [address] [place] [address] PCP - General Family Medicine 8/31/22 Gloria Flores Software ClerkRecords Management Coordinator 03/13/23 documented as of this encounter
--- OUTSIDE RECORDS SUMMARY | 2024-07-13 14:58 | XMS_ITS | Encounter Summary ---
Author Organization [employer] [facility] Address [address] [facility] [address]t [place] [address] Care Team Providers Care Classification Officer Name Role Phone Waleska Goldberg Primary Care Provider [phone] Encounter Details Date Type Department Care Team (Latest Contact Info) Description 03/24/2019 Abstract [facility] CONVERSIONS Dental, Provider, DDS Social History Tobacco [...] Description 07/16/2024 11:30 AM EDT Office Visit [facility] MED & PEDS [address] [place] [address] Waleska Goldberg FNP [address] [place] [address] documented as of this encounter Visit Diagnoses Not on filedocumented in this encounter Care Teams Classification Officer Relationship Specialty Start Date End Date Waleska Goldberg FNP [address] [place] [address] PCP - General Family Medicine 12/12/21 Gloria Flores Maintenance Equipment OperatorFood Checkers And Cashiers Supervisor 03/13/23 documented as of this encounter
--- OUTSIDE RECORDS SUMMARY | 2024-07-13 14:58 | XMS_ITS | Encounter Summary ---
Author Organization [employer] Address [address] [place] [address] Care Team Providers Care Internal Combustion Engine Assembler Name Role Phone Waleska Goldberg Primary Care Provider [phone] Reason for Visit * Reason Onset Date Comments Med Refill 06/01/2024 Encounter Details Date Type Department Care Team (Late st Contact Info) Description 06/01/2024 Refill [facility] [address] [place] [address] Waleska Goldberg FNP [address] [place] [address] Fracture of left patella with routine healing [...] up for visit. [facility]. Thank you! * Telephone Encounter - Dee Nuñez - 06/01/2024 3:53 PM EST TC from pt requesting medication refill. Medications needing refill : oxyCODONE-acetaminophen (Percocet) 10-325 MG tablet To be sent to: [facility]/pharmacy #[id number] documented in this encounter Plan of Treatment Upcoming Encounters Date Type Department Care Team ([facility] st Contact Info) Description 07/16/2024 11:30 AM EDT Office Visit [facility] MED & PEDS [address] [place], [place] [phone] Waleska Goldberg FNP [address] [place], [place] [phone] documented as of this encounter Visit Diagnoses Diagnosis Fracture of left patella with routine healing documented in this encounter Additional Health Concerns Assessment Noted Time PHQ-9 Depression Total Score: 6 07/30/19 24 10:53 AM EDT documented as of this encounter Care Teams Internal Combustion Engine Assembler Relationship Specialty Start Date End Date Waleska Goldberg FNP [address] [place] [address] PCP - General Family Medicine 12/12/21 Gloria Flores Jet WorkerBb Shot Packer 03/13/23 documented as of this encounter
--- OUTSIDE RECORDS SUMMARY | 2024-07-13 14:58 | XMS_ITS | Encounter Summary ---
Author Organization [employer] Address [address] [place] [address] Care Team Providers Care Case Management Manager Name Role Phone Waleska Goldberg Primary Care Provider [phone] Reason for Visit * Reason Onset Date Comments Referral 06/30/2024 Encounter Details Date Type Department Care Team ([facility] st Contact Info) Description 06/30/2024 Telephone [facility] MED & PEDS [address] [place], [place] [phone] Waleska Goldberg FNP [address] [place] [address] Referral Social History Tobacco Use Types Packs/Day [...] encounter Miscellaneous Notes * Telephone Encounter - Nayla Mullins - 06/30/2024 1:49 PM EDT Insurance authorization for 20 visits #[id number] faxed to Jan Shen @ [phone]. * Telephone Encounter - Yvonne Palomino - 06/30/2024 12:15 PM EDT Tc from pt calling to inform was told to contact PCP to request more visit for physical therapy. Symptoms and location is still the same. Any further questions please contact pt to clarify. documented in this encounter Plan of Treatment Upcoming Encounters Date Type Department Care Team (Late st Contact Info) Description 07/16/2024 11:30 AM EDT Office Visit [facility] MED & PEDS [address] [place] [address] Waleska Goldberg FNP [address] [place] [address] documented as of this encounter Visit Diagnoses Not on filedocumented in this encounter Additional Health Concerns Assessment Noted Time PHQ-9 Depression Total Score: 6 07/30/19 24 10:53 AM EDT documented as of this encounter Care Teams Case Management Manager Relationship Specialty Start Date End Date Waleska Goldberg FNP [address] [place] [address] PCP - General Family Medicine 12/12/21 Gloria Flores Centrifuge OperatorTransfer Specialist 03/13/23 documented as of this encounter
--- OUTSIDE RECORDS SUMMARY | 2024-07-13 14:58 | XMS_ITS | Encounter Summary ---
Author Organization [employer] Address [address] [place] [address] Care Team Providers Care Professor Of Social Work Name Role Phone Waleska Goldberg SALESPERSON [employer] Primary Care Provider [phone] Encounter Details Date Type Department Care Team ([facility] st Contact Info) Description 04/16/2024 Orders Only [facility] [address] [place], [place] [phone] Provider, MD Aleisha Social History Tobacco Use [...] Description 07/16/2024 11:30 AM EDT Office Visit [facility] [address] [place], [place] [phone] Waleska Goldberg FNP [address] [place] [address] documented as of this encounter Procedures Procedure [...] documented as of this encounter Care Teams Professor Of Social Work Relationship Specialty Start Date End Date Waleksa Goldberg FNP [address] [place] [address] PCP - General Family Medicine 12/12/21 Gloria Flores Histopath TechEvent Decorator 03/13/23 documented as of this encounter
--- OUTSIDE RECORDS SUMMARY | 2024-07-13 14:58 | XMS_ITS | Encounter Summary ---
Author Organization [employer] Address [address] [place] [address] Care Team Providers Care Poising Inspector Name Role Phone Waleska Goldberg Primary Care Provider [phone] Reason for Visit * Reason Comments Med Refill Encounter Details Date Type Department Care Team (Late st Contact Info) Description 06/07/2024 Refill [facility] [address] [place], [place] [phone] Waleska Goldberg FNP [address] [place] [address] Fracture of left patella with routine healing [...] pt regarding message below via BLS ID# [id number]. Pt stated he has an appt scheduled [...] refill of Percocet. Called via BLS ID# [id number]. Also called pt on 06/01/24 advisingof the message from PCP on 06/01/24: Please let him know that short course of opioid was sent in with plan for no refills. He should hopefully be feeling better, but if not, will need to follow up for visit. Walk in [place] extended open tonight PRN. Thank you! Pt then verbalized understanding. Pt called again for a refill today. Stated he does not want to goto walk in [place], asked for a f/u appt with PCP which was scheduled for 07/16/24. Pt verbalized understanding. documented in this encounter Plan of Treatment Upcoming Encounters Date Type Department Care Team (Late st Contact Info) Description 07/16/2024 11:30 AM EDT Office Visit [facility] PEDS [address] [place] [address] Waleska Goldberg FNP [address] [place] [address] documented as of this encounter Visit Diagnoses Diagnosis Fracture of left patella with routine healing documented in this encounter Additional Health Concerns Assessment Noted Time PHQ-9 Depression Total Score: 6 07/30/19 24 10:53 AM EDT documented as of this encounter Care Teams Poising Inspector Relationship Specialty Start Date End Date Waleska Goldberg FNP [address] [place] [address] PCP - General Family Medicine 12/12/21 Gloria Flores Power Plant ManagerManager Heavy Duty 03/13/23 documented as of this encounter
--- OUTSIDE RECORDS SUMMARY | 2024-07-13 14:58 | XMS_ITS | Clinical Summary ---
Author Organization [employer] Address [address] [place] [address] Care Team Providers Care Orthopedic Surgeon Name Role Phone Waleska Goldberg AMERICO Primary Care Provider [phone] Allergies No known active allergies Medications UltiGuard SafePack Pen Needle 32G X 4 MM miscIndications:T ype 2 diabetes mellitus without complication, with long-term current use of insulin (CMS/[facility]) USE DIRECTED 6 TIMES PER DAY 100 [...] by mouth daily Active Continuous Blood Gluc Software Test Manager (FreeStyle Alfredo 2 [place]) deviceIndications :Type 2 diabetes mellitus without complication, with long-term current use of insulin (CMS/HCC) Use to check blood glucose levels throughout the day 1 each 023 Active Continuous Blood Gluc Sensor (FreeStyle Alfredo 2 Sensor) miscIndications:T ype 2 diabetes mellitus without complication, with long-term current use of insulin ([facility]) Use to check blood sugar levels throughout the day 2 each 023 Active Blood Glucose Monitoring Suppl (FreeStyle Browns Lite) w/Device kitIndications:Ty pe 2 diabetes mellitus without complication, with long-term current use of insulin ([facility]) Use to test blood sugar 1-2 times [...] tabletIndications :Coronary arteriosclerosis, Chronic systolic heart failure ([facility]/HCC) TAKE 1 TABLET BY MOUTH EVERY MORNING 90 tablet 3 024 Active isosorbide mononitrate ER (Imdur) 60 MG 24 hr tabletIndications :Coronary arteriosclerosis, Chronic systolic heart failure ([facility]/HCC) TAKE 1 TABLET BY MOUTH EVERY MORNING [...] pe 2 diabetes mellitus treated with insulin ([facility]) INJECT 30 UNITS SUBCUTANEOUSLY ONCE DAILY 15 mL 4 Active insulin aspart (NovoLOG FLEXPEN) 100 UNIT/ML penIndications:Ty pe 2 diabetes mellitus without complication, with long-term current use of insulin ([facility]) INJECT 6 UNITS SUBCUTANEOUSLY 3 TIMES DAILY [...] long-term current use of insulin ([facility]) TAKE 1 TABLET BY MOUTH TWICE DAILY IN THE MORNING AND IN THE EVENING WITH MEALS 180 tablet 3 Active TRUEplus Lancets 33G miscIndications:T ype 2 diabetes mellitus without complication, with long-term current use of insulin ([facility]) USE TO TEST BLOOD SUGAR FOUR TIMES [...] long-term current use of insulin ([facility]) TEST BLOOD SUGAR FOUR TIMES DAILY AND NEEDED FOR BLOOD SUGAR <70 MG/dL 100 strip 11 Active Easy Touch Lancets 33G/Twist misc TEST BLOOD SUGAR 4 TIMES A DAY 100 each 11 03/13/ 023 2024 Discontinued glucose blood (FREESTYLE LITE) [...] FOOD 180 tablet 3 024 2024 Discontinued Active Problems Patient Care Coordination No te Formatting of this note migh t be different from the original. C3/CM Yesenia Page RN Problem Noted Date Diagnosed Date Fracture of left patella with routine healing Overview (05/23/2024): Following with [facility] Ortho - Dr. Monahan Assessment & Plan [...] Previous trials: prednisone, avoid NSAIDs with hx AL, APAP not effective. - Plan: short course [...] knee 08/30/2023 Overview (04/16/2024): - Followed by [facility] Ortho - Plan for trial knee sleeve [...] precautions Healthcare maintenance 05/26/2023 Overview (04/16/2024): Dental: [facility] Dental Optometry: 10/07/22: SHELBY w/o diabetic retinopathy or diabetic macular edema. Colonoscopy: 05/30/22 at [facility] GI - Dr. Harrison. Plan to repeat in 1-2 years d/t poor prep. Referral to re-establish with GI sent 04/16/24. Assessment & Plan (08/30/2023 10:39 AM EDT): Declines COVID & PCV20 vaccines 08/29/23 Benign prostatic hyperplasia with urinary freque ncy 05/13/2022 Assessment & Plan (07/31/2023 7:22 PM EDT): Following with [facility] Urology - Dr. Arboleda Continues with tamsulosin 0.4mg nightly Chronic pelvic pain in male 05/13/2022 Overview (08/29/2023): -Following with [facility] Urology -Previous recommendation for pelvic floor physical [...] heart failure 04/17/2018 Overview (06/16/2022): -Followed by [facility] cardiology. Dr. Esteves -Hx of cardiac catheterization in [place] due to AL that led to coronary artery bypass surgery -Had further cardiac cath in [place] in 2018 that led to stenting of OM2 branch. -Pt to continue anticoagulation and nitroglycerin as needed through Cards Coronary arteriosclerosis 04/17/2018 Diabetic neuropathy 04/17/2018 Essential hypertension 04/17/2018 Generalized ischemic myocardial dysfunction 07/2018 S/P CABG x 5 04/17/2018 Type 2 diabetes mellitus 04/17/2018 Overview (04/16/2024): -Previously followed by [facility] Endo for management, although previous provider left and have not yet established with new provider -Reports BG readings usually ~120 fasting, and then around 100-200 throughout the day -Current regimen includes: -30 units nightly lantus -Novolog 6 units before meals -metformin 500mg BID -CGM approved, plan for initial teaching and device application 08/14/22 at [facility] Pharmacy -Podiatry: referral placed 06/05/22 -Optometry: last CEE September 2022 ([facility]) Lab Results Component Value [...] sites 08/18/1908/17/2022 Overview (08/17/2022): ?? Followed by [facility] Pain Management Abdominal pain of unknown cause 05/13/2022 08/30/2023 UTI symptoms 05/13/2022 06/16/2022 Pain in joint of left shoulder 11/19/2018 06/16/2022 Inguinal lymphadenopathy 08/27/201808/2022 Trigger ring finger of right hand 06/08/2018 06/16/2022 Encounters Date Type Department Care Team Description 07/13/2024 Telephone [facility] [address], [place] [phone] Waleska Goldberg FNP Chart Prep 07/13/2024 Patient Outreach [facility] [address] [place] [address] Waleska Goldberg FNP Care Coordination (Outreach) 06/30/2024 Telephone [facility] [address], [place] [phone] Waleska Goldberg FNP Referral 06/30/2024 Telephone [facility] [address], [place] [phone] Waleska Goldberg FNP Novolog 06/30/2024 Telephone [facility] [address], [place] [phone] Waleska Goldberg FNP Results (AMERICO [facility] Nurses/ Please call to review imaging: XR left foot demonstrated heel spurs and mild degenerative changes/arthritis. If he is not already following with podiatry, please let me know if he is interested in a referral. /) 06/25/2024 Population Health Risk Score [facility] [address] [address] Provider, Population Health Generic 06/15/2024 Refill [facility] [address] [place] [address] Waleska Goldberg FNP Type 2 diabetes mellitus without complication, with long-term current use of insulin ([facility]); Essential hypertension; Other hyperlipidemia 06/10/2024 Patient Outreach [facility] [address] [place] [address] Waleska Goldberg FNP Care Coordination (Outreach) 06/09/2024 Travel 06/07/2024 Refill [facility] [address] [place] [address] Waleska Goldberg FNP Fracture of left patella with routine healing 06/02/2024 Refill [facility] [address] [place] [address] Waleska Goldberg, YACHT BUILDER Fracture of left patella with routine healing 06/01/2024 Telephone [facility] [address] [place] [address] Aileen Ford RN 06/01/2024 Refill [facility] [address] [place] [address] Waleska Goldberg FNP Fracture of left patella with routine healing 05/24/2024 Patient Outreach [facility] [address] [place] [address] Waleska Goldberg FNP Transition Of Care (Tcm) 05/24/2024 Patient Outreach [facility] [address] [place] [address] Waleska Goldberg FNP Transition Of Care (Tcm) 05/21/2024 3:30 PM EST Office Visit [facility] [address] [place] [address] Waleska Goldberg FNP Suprapubic pain (Primary Dx); Benign prostatic hyperplasia with urinary frequency; Lumbar spondylosis; Fracture of left patella with routine healing; Urinary retention 05/21/2024 Travel 05/21/2024 Orders Only GENERIC EXTERNAL DATA DEPARTMENT Provider, Generic External Data 05/20/2024 Patient Outreach [facility] [address] [place] [address] Waleska Goldberg FNP Care Coordination (Outreach) 05/10/2024 Telephone [facility] [address] [place] [address] Waleska Goldberg FNP Urology Referral: Urgent 05/10/2024 Patient Outreach [facility] [address] [place] [address] Waleska Goldberg FNP Transition Of Care (Tcm) 05/06/2024 Telephone [facility] [address] [place] [address] Waleska Goldberg FNP TC: HDF 05/06/2024 Telephone [facility] [address] [place] [phone] Waleska Goldberg FNP Med Refill 05/06/2024 Patient Outreach [facility] [address] [place] [address] Waleska Goldberg FNP Care Coordination (Outreach) 05/05/2024 Refill [facility] [address] [place] [address] Waleska Goldberg FNP Fracture of left patella with routine healing 05/04/2024 Patient Outreach [facility] [address] [place] [address] Waleska Goldberg FNP Transition Of Care (Tcm) (HDF- scheduled and SDOH screening positive and Tobacco screening negative) 05/04/2024 Telephone [facility] [address] [place] [phone] Waleska Goldberg FNP Hospital Follow-up 04/30/2024 Patient Outreach [facility] [address] [place] [address] Waleska Goldberg, AMERICO Care Coordination (Outreach) 04/26/2024 Telephone [facility] [address] [place] [address] Waleska Goldberg, AMERICO 04/23/2024 2:30 PM EST Telemedicine [facility] [address] [place] [address] Waleska Goldberg FNP Fracture of left patella with routine healing (Primary Dx); Insomnia, unspecified type 04/23/2024 Telephone [facility] [address] [place] [address] Waleska Goldberg FNP 04/23/2024 Travel 04/19/2024 Telephone [facility] [address] [place] [address] Waleska Goldberg FNP 04/19/2024 Telephone [facility] [address] [place] [address] Waleska Goldberg FNP 04/16/2024 2:00 PM EST Office Visit [facility] [address] [place] [address] Waleska Goldberg FNP Cellulitis of right foot (Primary Dx); Fracture of left patella with routine healing; Type 2 diabetes mellitus without complication, with long-term current use of insulin ([facility]); Healthcare maintenance; Colon cancer screening; Xerosis of skin 04/16/2024 Orders Only [facility] [address] [place] [address] ProviderAleisha MD 04/16/2024 Travel 04/15/2024 Telephone [facility] [address], [place] [phone] Luann Muñiz MA Chart Prep from Last 3 Months Immunizations Name Administration [...] Description 07/16/2024 11:30 AM EDT Office Visit [facility] [address], [place] [phone] Waleska Goldberg, YACHT BUILDER [address] [place] [address] Health Maintenance Due Date Last Done Comments [...] Procedure Name Priority Date/Time Associated Diagnosis Comments XR FOOT 3+ VIEWS LEFT Routine 06/25/2024 8:54 AM EDT Left foot pain POCT GLUCOSE Routine 05/21/2024 4:53 PM EST [...] long-term current use of insulin ([facility]) POCT GLUCOSE Routine 04/16/2024 2:35 PM EST Type 2 diabetes mellitus without complication, with long-term current use of insulin ([facility]) PROPHYLAXIS - ADULT Routine 06/26/2023 8 :00 AM EDT Dental calculus INTRAORAL - COMPLETE SERIES OF RADIOGRAPHIC IMAGES Routine 06/26/2023 8:00 AM EDT PERIODIC ORAL EVALUATION - ESTABLISHED PATIENT Routine 09/05/2022 9:30 AM EDT Encounter for dental examination Dental caries Malocclusion Bruxism HM COLONOSCOPY Routine 05/30/2022 9:04 PM EST ZZZ HISTORICAL MICROALBUMIN/CREATININ E RATIO, RANDOM URINE Routine 08/06/2021 8:19 AM EDT ZZZ HISTORICAL LIPID PANEL Routine 05/07/2021 9:10 AM EST from Last 3 Months or Most Recently Relevant to Health Maintenance Results * XR Foot 3+ Views Left (06/25/2024 8:54 AM EDT) Anatomical Region Laterality Modality Lower Extremities, Foot Left Radiogra phic Imaging 06/25/2024 8:54 AM EDT Narrative 06/25/2024 8:55 AM EDT ? [facility] ?[address] ?[place] [address] ?XRay Report ? Signed ? Patient: Pema Hickman,Celso ?MR#: [id number] ?? [id number] ? : 1965 ?Acct:[id number] ? Age/Sex: 59 / M ?ADM Date: 06/24/24 ? Loc: HO.XRAY ? Attending Dr: Chely BINGHAM ? Ordering Physician: Waleska Golbderg ?? Date of Service: 06/24/24 ?? Procedure(s): XR foot LT min 3V ?? Accession Number(s): [id number] ? cc: Waleska Goldberg ? CLINICAL HISTORY: 58 y o M with pain left lateral foot ? 3 view left foot ? Comparison: CR/SR - XR FOOT LT MIN 3V - 03/19/24 20:44 EST ? Findings: ?? No fractures or dislocations. ?? There are mild degenerative changes of the midfoot and 1st interphalangeal ?? joint. ?? No ankle effusion. ?? No radiopaque foreign body. ? There are posterior and plantar calcaneal spurs. ? IMPRESSION: ?? 1. No acute findings. Calcaneal spurs and mild degenerative changes. ? This document has been electronically signed by: Jim Mathews MD on ?? 06/25/2024 08:54:13 ? Dictated By: ?Jim Mathews MD ? Signed By: ?<Electronically signed by Jim Mathews MD in OV> ? 06/25/24 0855 ? DD/ 0854 ? TD/TT: 06/25/24853 ? Industrial Engineering Director: ? Procedure Note Esther, Fritz - 06/25/[address] [address] XRay Report Signed Patient: Barrett Goldman AMR#: [id number] : 1965Acct:[id number] Age/Sex: 59 / MADM Date: 06/24/24 Loc: [facility] Attending Dr: Chely Randhawa EAR PULL MACHINE OPERATOR-C Ordering Physician: Waleska Goldberg Date of Service: 06/24/24 Procedure(s): XR foot LT min 3V Accession Number(s): [id number] cc: Waleska Goldberg CLINICAL HISTORY: 58 y o M with pain left lateral foot 3 view left foot Comparison: CR/SR - XR FOOT LT MIN 3V - 03/19/24 20:44 EST Findings: No fractures or dislocations. There are mild degenerative changes of the midfoot and 1st interphalangeal joint. No ankle effusion. No radiopaque foreign body. There are posterior and plantar calcaneal spurs. IMPRESSION: 1. No acute findings. Calcaneal spurs and mild degenerative changes. This document has been electronically signed by: Jim Mathews MD on 06/25/2024 08:54:13 Dictated By: Jim Mathews MD Signed By: <Electronically signed by Jim Mathews MD in OV> 06/25/24 0855 DD/ 3 TD/TT: 06/25/24853 Industrial Engineering Director: us Waleska OWENSP IMG XR PROCEDURES Final Result * (ABNORMAL) POCT Glucose (05/21/2024 4:53 PM EST) Only the most recent of2 resultswithin the time period is included. Glucose Blood, POC 367(A) 60 - 200 mg/dL QC Media Lot # [id number] Lot# Expiration Date 48 Blood Capillary blood specimen / Unknown 05/21/2024 4:53 PM EST Waleska Goldberg [facility] POINT OF CARE TEST ENTER/EDIT ORDERABLES [...] Media Lot # [id number] Lot# Expiration Date Urine 05/21/2024 4:49 PM EST us Waleska Goldberg YACHT BUILDER POINT OF CARE TEST ENTER/EDIT ORDERABLES Final Result * (ABNORMAL) Glucose, Whole Blood (05/21/2024 1:35 PM EST) Glucose, Whole Blood 318(H) 60 - 115 mg/dL [facility] Comment:METER #: [id number] 05/21/2024 1:35 PM EST 05/21/2024 1:39 PM EST us Generic External Data Provider LAB BLOOD ORDERAB LES Final Result Performing Organization Address City/State/[facility] Co de Phone Number [facility] [address] [place] [phone] * (ABNORMAL) Urinalysis, Complete, with Reflex to Culture (05/21/2024 11:43 AM EST) Color Urine Yellow [facility] Appearance Urine Clear [facility] PH 5.5 5.0 - 9.0 [facility] Glucose Urine UA >=1000(A) Negative mg/dL [facility] Urine Blood Negative Negative [facility] Specific [place] - Urine >=1.030(H) 1.005 - 1.025 [facility] Urine Protein Negative Neg-Trace mg/dL [facility] Urine Ketones Negative Negative mg/dL [facility] Nitrite Urine Negative Negative [facility] Leukocyte Esterase Urine Negative Negative [facility] RBC Urine 0-2 0 - 2 /HPF [facility] Urine WBC 0-5 0 - 5 /HPF [facility] Urine Squamous Epithelial Cell 0-2 0 - 2 /HPF [facility] Urine Bacteria None Seen None Seen [facility] Hyaline Casts, Urine 0-2 0 - 2 /LPF [facility] 05/21/2024 11:4 3 AM EST 05/21/2024 11:49 AM EST Narrative [facility] - 05/21/2024 12:15 PM EST [id number], Clean Catch us Generic External Data Provider LAB URINE ORDERAB LES Final Result [facility] [address] [place] [address] [phone] * (ABNORMAL) CBC auto differential (05/21/2024 11:43 AM EST) White Blood Count 6.1 4.8 - 10.8 X10*3/uL [facility] Red Blood Count 5.10 4.60 - 5.80 X10*6/uL [facility] Hemoglobin 15.7 14.0 - 18.0 g/dl [facility] Hematocrit 44.8 42.0 - 52.0 % [facility] Mean Corpuscular Volume 87.8 80.0 - 98.0 fL [facility] Mean Corpuscular Hemoglobin 30.8 27.0 - 33.0 pg [facility] Mean Corpuscular HGB Conc 35.0 31.0 - 36.0 g/dl [facility] Red Cell Distribution Width 12.3 11.0 - 16.0 % [facility] Platelet Count 189 160 - 400 X10*3/uL [facility] Mean Platelet Volume 10.7 9.4 - 12.4 fL [facility] Neutrophils Percent Auto 64.5 45 - 73 % [facility] Imm Gran Pct Auto 0.5(H) 0.0 - 0.4 % [facility] Lymphocytes Percent Auto 23.3 20 - 40 % [facility] Monocytes Percent Auto 6.9 2 - 11 % [facility] Eosinophils Percent Auto 4.1(H) 0 - 4 % [facility] Basophils Percent Auto 0.7 0 - 2 % [facility] NRBC Pct Auto 0.0 0.0 - 0.2 /100WBC [facility] Neutrophils Absolute Auto 3.9 2.0 - 8.3 x10*3/uL [facility] Imm Gran Abs Auto 0.03 0.00 - 0.03 X10*3/uL [facility] Lymphocytes Absolute Auto 1.4 1.2 - 4.9 X10*3/uL [facility] Monocytes Absolute Auto 0.4 0.1 - 1.2 X10*3/uL [facility] Eosinophils Absolute Auto 0.3 0.0 - 0.4 X10*3/uL [facility] Basophils Absolute Auto 0.0 0.0 - 0.2 X10*3/uL [facility] NRBC Abs Auto 0.000 0.0 - 0.012 X10*3/uL [facility] 05/21/2024 11:4 3 AM EST 05/21/2024 11:49 AM EST us Generic External Data Provider LAB BLOOD ORDERAB LES Final Result Performing Organization Address [facility] Co de Phone Number [facility] [address] [place] [phone] * Magnesium (05/21/2024 11:43 AM EST) Magnesium 2.0 1.6 - 2.6 mg/dL [facility] 05/21/2024 11:4 3 AM EST 05/21/2024 11:49 AM EST us Generic External Data Provider LAB BLOOD ORDERAB LES Final Result Performing Organization Address [facility] Co de Phone Number [facility] [address] [place] [phone] * Lipase (05/21/2024 11:43 AM EST) Lipase 35 8 - 78 U/L [facility] 05/21/2024 11:4 3 AM EST 05/21/2024 11:49 AM EST us Generic External Data Provider LAB BLOOD ORDERAB LES Final Result [facility] [address] [place] [address] [phone] * (ABNORMAL) Comprehensive Metabolic Panel (05/21/2024 11:43 AM EST) Sodium 134(L) 135 - 145 mmol/L [facility] Potassium 4.1 3.3 - 5.1 mmol/L [facility] Chloride 107 96 - 108 mmol/L [facility] Carbon Dioxide 22 22 - 29 mmol/L [facility] Anion Gap 9(L) 12 - 20 [facility] Urea Nitrogen (BUN) 19(H) 9 - 16 mg/dL [facility] Creatinine, Serum 1.04 0.5 - 1.4 mg/dL [facility] Creatinine Clr Calc Pharmacy 74.7 [facility] Comment:eGFR (calculated fro m the MDRD study equation) and eCrCl(calculated from the Cockcroft-Gault equation) are based ondifferent parameters and may not yield comparable results.If eCrCl result is absurd, please check patient'sheight/weight. Estimated Glomerular Filt Rate >60 [facility] Comment:Chronic Kidney Disea se: Estimated GFR < 60 mL/min/1.23y5Lkhdnf Kidney Disease: Estimated GFR < 15 mL/min/1.73m2 Glucose 296(H) 60 - 115 mg/dL [facility] Calcium 9.0 8.4 - 10.2 mg/dL [facility] Bilirubin, Total 1.7(H) 0.0 - 1.0 mg/dL [facility] Aspartate Amino Transferase 21 5 - 37 U/L [facility] Alanine Aminotransferase 23 0 - 40 U/L [facility] Total Protein 7.4 6.5 - 8.0 g/dL [facility] Albumin Level 4.2 3.5 - 5.0 g/dL [facility] Alkaline Phosphatase 142(H) 39 - 117 U/L [facility] 05/21/2024 11:4 3 AM EST 05/21/2024 11:49 AM EST Generic External Data Provider LAB BLOOD ORDERAB LES Final Result [facility] [address] [place] [address] [phone] * (ABNORMAL) POCT HGB A1C (04/16/2024 2:38 PM EST) Hemoglobin A1C 8.3(A) 4.0 - 6.0 % QC Media Lot # [id number] Lot# Expiration Date [id number] Blood 04/16/2024 2:38 PM EST Waleska Goldberg YACHT BUILDER POINT OF CARE TEST ENTER/EDIT ORDERABLES Final Result * Hm Colonoscopy (05/30/2022 9:04 PM EST) Historical Provider HEALTH MAINTENANCE Final Result * MICROALBUMIN/CREATININE RATIO, RANDOM URINE (08/06/2021 8:19 AM EDT) Creatinine Urine 104.90 mg/dL [facility] Microalbum/Creati nine Ratio Ur 8.5 ug/mg cr [facility] Comment: ?Albumin/Creatinine Ratio Reference Ranges: ? Normal: < 30 ug/mg creatinine ? Microalbuminuria: ??30 - 300 ug/mg creatinine Clinical Albuminuria: ??> 300 ug/mg creatinine Microalbumin Urine 9.0 mg/L [facility] 08/06/2021 8:19 AM EDT Historical Provider HISTORICAL/NON ORDERABLE LABS Final Result [facility] [address] * (ABNORMAL) LIPID PANEL (05/07/2021 9:10 AM EST) Cholesterol 113 mg/dL [facility] Comment: Desirable Cholesterol: ?less than 200 mg/dL Borderline High Cholesterol: ??200-239 mg/dL High Cholesterol: ? greater than 239 mg/dL HDL Cholesterol 27 mg/dL [facility] Comment: Desirable HDL: ??greater than 40 mg/dL ?? Note: This HDL assay may give artificially ? low results in patients with liver disease. LDL Cholesterol Calculated 71 mg/dl [facility] Comment: Desirable LDL: ? less than 100 mg/dL Near Optimal/Above Optimal LDL: ??110-129 mg/dL Borderline High LDL: ? 130-159 mg/dL High LDL: ?160-189 mg/dL Very High LDL: ? greater than or equal to ?190 mg/dL Triglycerides 77 mg/dL [facility] Comment: Desirable Triglyceride: ? less than 150 mg/dL Borderline High Triglyceride ??150-199 mg/dL High Triglyceride: ?200-499 mg/dL Very High Triglyceride: ? greater than or equal to ? 5OO mg/dL Alanine Aminotransferase 23 0 - 40 U/L [facility] Albumin Level 4.4 3.5 - 5.0 g/dL [facility] Alkaline Phosphatase 109 39 - 117 U/L [facility] Anion Gap 12 12 - 20 [facility] Aspartate Amino Transferase 21 5 - 37 U/L [facility] Bilirubin Total 2.0(H) 0.0 - 1.0 mg/dL [facility] Blood Urea Nitrogen 23(H) 9 - 16 mg/dL [facility] Calcium 9.1 8.4 - 10.2 mg/dL [facility] Carbon Dioxide 25 22 - 29 mmol/L [facility] Chloride 109(H) 96 - 108 mmol/L [facility] Creatinine, Serum 0.96 0.5 - 1.4 mg/dL [facility] Estimated Glomerular Filt Rate >60 [facility] Comment: NOTE: ??For -[place]itt[place] individuals, multiply the result ?by 210. ?? [...] ORDERABLE LABS Final Result Performing Organization Address City/State/[facility] Co de Phone Number [facility] [address] from Last 3 Months or Most Recently Relevant to Health Maintenance Insurance [facility] C[facility] STAND ADULT Care Teams Orthopedic Surgeon Relationship Specialty Start Date End Date Waleska Goldberg FNP [address] [place] [address] PCP - General Family Medicine 12/12/21 Gloria Flores Vise HandChair Pad Maker 03/13/23
--- OUTSIDE RECORDS SUMMARY | 2024-07-13 14:58 | XMS_ITS | Encounter Summary ---
Author Organization [employer] Address [address] [facility] 7t [place] [address] Care Team Providers Care Certified Lactation Educator Name Role Phone Waleska Goldberg Primary Care Provider [phone] Reason for Visit * Reason Onset Date Comments Hospital Follow-up 05/04/2024 Encounter Details Date Type Department Care Team ([facility] st Contact Info) Description 05/04/2024 Telephone [facility] MEDICINE [address] [place], [place] [phone] Waleska Goldberg FNP [address] [place], [place] [phone] Hospital Follow-up Social History Tobacco Use Types [...] from pt requesting a HDF appt. Hospital: [facility] Date of admission: 04/29/2024 Discharge date: 05/01/2024 Diagnosed: Kidney stones , pt satated that at ER they placed a godfrey that has to be remove *Send message to [place] Clinical Care Coordinators documented in this encounter Plan of Treatment Upcoming Encounters Date Type Department Care Team (Late st Contact Info) Description 07/16/2024 11:30 AM EDT Office Visit [facility] MED & PEDS [address] [place] [address] Waleska Goldberg FNP [address] [place] [address] documented as of this encounter Visit Diagnoses Not on filedocumented in this encounter Additional Health Concerns Assessment Noted Time PHQ-9 Depression Total Score: 6 07/30/19 24 10:53 AM EDT documented as of this encounter Care Teams Certified Lactation Educator Relationship Specialty Start Date End Date Waleska Goldberg FNP [address] [place] [address] PCP - General Family Medicine 12/12/21 Gloria Flores Inside Sales Account ExecutiveHouse Registry Rn 03/13/23 documented as of this encounter
--- OUTSIDE RECORDS SUMMARY | 2024-07-13 14:58 | XMS_ITS | Encounter Summary ---
Author Organization [employer] Address [address] [facility] 7t [place] [address] Care Team Providers Care Sweatband Cutting Machine Operator Name Role Phone Waleska Goldberg Primary Care Provider [phone] Reason for Visit * Reason Onset Date Comments Med Refill 05/06/2024 Encounter Details Date Type Department Care Team (Late st Contact Info) Description 05/06/2024 Telephone [facility] MEDICINE [address] [place], [place] [phone] Waleska Goldberg FNP [address] [place], [place] [phone] Med Refill Social History Tobacco Use Types [...] 10-325 MG tablet To be sent to: [facility] - [place], [place] - [address] [place] [address] documented in this encounter Plan of Treatment Upcoming Encounters Date Type Department Care Team (Late st Contact Info) Description 07/16/2024 11:30 AM EDT Office Visit [facility] MED & PEDS [address] [place] [address] Waleska Goldberg FNP [address] [place] [address] documented as of this encounter Visit Diagnoses Not on filedocumented in this encounter Additional Health Concerns Assessment Noted Time PHQ-9 Depression Total Score: 6 07/30/19 24 10:53 AM EDT documented as of this encounter Care Teams Sweatband Cutting Machine Operator Relationship Specialty Start Date End Date Waleska Goldberg FNP [address] [place] [address] PCP - General Family Medicine 12/12/21 Gloria Flores Photography TeacherButton Sewer 03/13/23 documented as of this encounter
--- OUTSIDE RECORDS SUMMARY | 2024-07-13 14:58 | XMS_ITS | Encounter Summary ---
Author Organization [employer] Address [address] [facility] 7t [place] [address] Care Team Providers Care Hemmer Automatic Name Role Phone Waleska Goldberg Primary Care Provider [phone] Reason for Visit * Reason Onset Date Comments Chart Prep 07/13/2024 Encounter Details Date Type Department Care Team ([facility] st Contact Info) Description 07/13/2024 Telephone [facility] MED & PEDS [address] [place], [place] [phone] Waleska Goldberg FNP [address] [place] [address] Chart Prep Social History Tobacco Use Types Packs/Day Years [...] encounter Miscellaneous Notes * Telephone Encounter - Luann Cordon [place] - 07/13/2024 1:32 PM EDT Chart Prep Labs: done Images: not done Vaccines due: yes Referrals: complete Screenings: colonoscopy, eye exam, STI screening, and Hep C , Lipid Panel Overdue care gaps: A1c and Glucose documented in this encounter Plan of Treatment Upcoming Encounters Date Type Department Care Team (Late st Contact Info) Description 07/16/2024 11:30 AM EDT Office Visit [facility] MED & PEDS [address] [place] [address] Waleska Goldberg FNP [address] [place] [address] documented as of this encounter Visit Diagnoses Not on filedocumented in this encounter Additional Health Concerns Assessment Noted Time PHQ-9 Depression Total Score: 6 07/30/19 24 10:53 AM EDT documented as of this encounter Care Teams Hemmer Automatic Relationship Specialty Start Date End Date Waleska Goldberg FNP [address] [place] [address] PCP - General Family Medicine 12/12/21 Gloria Flores Hiv CounselorTelemarketing Fundraiser 03/13/23 documented as of this encounter
--- OUTSIDE RECORDS SUMMARY | 2024-07-13 14:58 | XMS_ITS | Encounter Summary ---
Author Organization [employer] Address [address] [facility] [address] [place] [address] Care Team Providers Care Resource Program Teacher Name Role Phone Waleska Goldberg Primary Care Provider [phone] Reason for Visit * Reason Comments Med Refill Encounter Details Date Type Department Care Team (Late st Contact Info) Description 09/28/2023 Refill [facility] MEDICINE [address] [place] [address] Waleska Goldberg FNP [address] [place], [place] [phone] Insomnia, unspecified type Social History Tobacco Use [...] AM EDT Office Visit [facility] MED & PEDS [address] [place] [address] Waleska Goldberg FNP [address] [place] [address] documented as of this encounter Visit Diagnoses Diagnosis Insomnia, unspecified type documented in this encounter Additional Health Concerns Assessment Noted Time PHQ-9 Depression Total Score: 6 07/30/19 24 10:53 AM EDT documented as of this encounter Care Teams Resource Program Teacher Relationship Specialty Start Date End Date Waleska Goldberg FNP [address] [place] [address] PCP - General Family Medicine 12/12/21 Gloria Flores Destination CoordinatorPest Technician 03/13/23 documented as of this encounter
--- OUTSIDE RECORDS SUMMARY | 2024-07-13 14:58 | XMS_ITS | Encounter Summary ---
Author Organization [employer] Address [address] [facility] 7t [place] [address] Care Team Providers Care Call Center Team Leader Name Role Phone Waleska Goldberg Primary Care Provider [phone] Encounter Details Date Type Department Care Team (Latest Contact Info) Description 07/10/2020 Abstract [facility] CONVERSIONS Dental, Provider, DDS Social History [...] Description 07/16/2024 11:30 AM EDT Office Visit [facility] MED & PEDS [address] [place] [address] Waleska Goldberg FNP [address] [place] [address] documented as of this encounter Visit Diagnoses Not on filedocumented in this encounter Care Teams Call Center Team Leader Relationship Specialty Start Date End Date Waleska Goldberg FNP [address] [place] [address] PCP - General Family Medicine 12/12/21 Gloria Flores Induction Furnace OperatorCellar Supervisor 03/13/23 documented as of this encounter
--- OUTSIDE RECORDS SUMMARY | 2024-07-13 14:58 | XMS_ITS | Encounter Summary ---
Author Organization [email or web address] Address [address] [facility] [address] [place] [address] Care Team Providers Care Commercial Development Manager Name Role Phone Waleska Goldberg Primary Care Provider [phone] Reason for Visit * Reason Onset Date Comments Referral 05/28/2022 Encounter Details Date Type Department Care Team (Late st Contact Info) Description 05/28/[address] [facility] MEDICINE [address] [place] [address] Waleska Goldberg FNP [address] [place] [address] Referral Social History Tobacco Use Types Packs/Day [...] Description 07/16/2024 11:30 AM EDT Office Visit [facility] MED & PEDS [address] [place], [place] [phone] Waleska Goldberg FNP [address] [place] [address] documented as of this encounter Visit Diagnoses Not on filedocumented in this encounter Care Teams Commercial Development Manager Relationship Specialty Start Date End Date Waleska Goldberg FNP [address] [place] [address] PCP - General Family Medicine 12/12/21 Gloria Flores Track Machine Operator RepairerAdministrative And Program Specialist 03/13/23 documented as of this encounter
== END 2024-07-13 13:58 | disposition home or self-care (01) ==
LOC: HO.HUSH 12:49
PROVIDERS: PCP Registered Nurse; Visit Provider Urology
DX: R39.15 Urgency of urination (principal); N32.0 Bladder-neck obstruction
CPT/HCPCS: 52000; 99213

== ENCOUNTER → 2024-07-13 12:49 | Outpatient (BNVA) | payer MEDICAID, SELFPAY | PROVIDERS: PCP Registered Nurse; Visit Provider Urology | DX: R39.15 Urgency of urination (principal); N32.0 Bladder-neck obstruction | CPT/HCPCS: 51798; 52000; 81003; 99212 ==

== ENCOUNTER 2024-07-28 08:12 | Outpatient (AMB) | payer MEDICAID, SELFPAY ==
--- NOTE | 2024-07-28 08:18 | A.OFFVIS_ITS ---
Vital Signs 07/28/24 08:26 Height 5 ft 4 in Weight 171 lb BMI 29.3 BP 106/61 Blood Pressure Location Lt brachial Position Sitting Pulse 94 Pulse Oximetry (%) 97 Oxygen Delivery Method Room Air Intake Visit Reasons: 1/2 yrs colonoscopy recall/[facility] 09/16/2022 Intake Note: Patient complex follow up for 1 to 2 years colonoscopy recall. Last visit with Cyndie 09/16/2022 for chronic constipation, last Colonoscopy on 05/30/[address] Harrison. Patient cc: RLQ pain with GERD, [place] [facility] [place]. Furnace Repair Mechanic Required: Yes Furnace Repair Mechanic Name: Clarissa [facility] [place] Accompanied by: Self / Same As Patient Allergies No Known Allergies [No Known Allergies*] Allergy (Verified 07/28/24 08:16) Medication List - Last Reconciled 07/28/24 by Jaimie Weems CNP acetaminophen (Tylenol) 325 mg PO Q4H PRN acetaminophen (Tylenol Extra Strength) 500 mg PO Q8H PRN ammonium lactate 12% 1 appl topical BID aspirin 81 mg PO QAM atorvastatin 80 mg PO DAILY blood sugar diagnostic (FreeStyle Lite Strips) 1 strip miscellaneous QID PRN blood-glucose meter (FreeStyle Farrell Lite kit) 1 ea miscellaneous DIRECTED calcium polycarbophil (Fiber-Lax) 625 mg PO TID carvedilol 3.125 mg PO BID clopidogrel 75 mg PO DAILY diclofenac sodium 1% 2 grams topical QID 30 days dicyclomine 20 mg PO QID PRN docusate sodium (Stool Softener) 200 mg (2 x 100 mg) PO BEDTIME ezetimibe (Zetia) 10 mg PO DAILY finasteride 5 mg PO DAILY 90 days flash glucose scanning reader (FreeStyle Alfredo 2 Kimberly) As directed flash glucose sensor (FreeStyle Alferdo 2 Sensor kit) As directed every 2 weeks fluticasone propionate 50 mcg/actuation 1 - 2 sprays intranasal DAILY PRN furosemide (Lasix) 20 mg PO DAILY 90 days gabapentin 800 mg PO BID hydrocortisone 2.5% (Proctozone-HC) 1 appl WI BID PRN ibuprofen 600 mg PO Q6H PRN insulin aspart U-100 (Novolog FlexPen U-100 Insulin aspart) 6-8 units with meal s, 2 units with snack subcut 4 times a day; insulin glargine (Lantus Solostar U-100 Insulin) 30 units (0.3 mL) subcut DAILY isosorbide mononitrate ER 60 mg PO DAILY lancets (TRUEplus Lancets) 1 gauge miscellaneous QID lidocaine 5% 1 patch topical DAILY PRN lidocaine 5% 1 patch topical DAILY lisinopril 2.5 mg PO DAILY magnesium citrate 300 mL PO DAILY PRN melatonin 5 mg (2 tab) PO once; metformin 1,000 mg (2 x 500 mg) PO BID 30 days naproxen 500 mg PO nitroglycerin 0.4 mg sublingual Q5M PRN pen needle, diabetic (Pentips Pen Needle) USE SIX TIMES DAILY DIRECTED polyethylene glycol 3350 (Miralax) 17 grams PO DAILY 30 days potassium citrate ER 20 mEq (2 x 10 mEq (1,080 mg)) PO BID 90 days pregabalin 100 mg PO ONCE ranolazine ER 500 mg PO BID tadalafil 10 mg PO DAILY 90 days tizanidine 4 mg PO TID HPI HPI 1/2 yrs colonoscopy recall/[facility] 09/16/2022: Details: Patient is a 59-year-old male with PMH of ischemic cardiomyopathy, chronic heart failure, DMII, hyperlipidemia and hypertension. Last visit with MARYBEL More 09/16/2022 for chronic constipation. Pt is here today for colonoscopy recall. He reports new onset RLQ pain approx 2 months. He sought ER 07/25/24 for chest pain. He was found to have kidney stone. Reports chest pain has resolved. He is scheduled to follow up with [facility] 09/30/2024. Scheduled to follow with PCP 08/09/24. Reports an ER visit at [facility] early June for evaluation of the RLQ pain. Records not available at time of visit. Reports BMs most days of the week, type 3-4 with occasional type 6. Shares he takes a tablet' daily that helps with constipation. However, unable to recall the name. heart burn + regurgitation triggered by sauces Hx of bladder pain and BPH, established with Urology with next appt scheduled for late summer/early fall. Common foods consumed: breakfast: sandwich, scramble eggs banana + other fruits Dinner: rice, francois, meat, steamed chicken also consumes root vegetables, salads hydrates with water, coconut water and does consume some juice Patient denies: systemic symptoms, n/v, appetite changes, unintentional wt loss, dysphasia, new cardiopulmonary symptoms or melena/hematochezia. Social hx: denies ETOH use denies recreational drug use non-smoker denies personal hx of CA Family hx: Denies CA hx PFSH Medical History (Updated 07/30/24 @ 13:11 by Jaimie Weems CNP) History of colon polyps Ischemic cardiomyopathy Atherosclerotic cardiovascular disease History of pancreatitis Hepatitis B Hepatitis C Chronic HFrEF (heart failure with reduced ejection fraction) Cardiomyopathy Type 2 diabetes mellitus with hyperglycemia, with long-term current use of insulin Type 2 diabetes mellitus with diabetic polyneuropathy Hyperlipidemia LDL goal <70 Essential hypertension Myocardial infarction Surgical History Hx of colonoscopy History of appendectomy Hx of heart artery stent H/O coronary artery bypass surgery H/O cardiac catheterization Family History Mother Diabetes Social History Household Members: Spouse Alcohol intake: never Patient Tobacco Use Status: Never used Tobacco Current occupational status: unemployed Review of Systems Const Reports as per HPI ENT Reports as per HPI Card Reports as per HPI Resp Reports as per HPI GI Reports as per HPI Reports as per HPI Physical Exam Vital Signs: Last Vital Signs Pulse 94 07/28/24 08:26 BP 106/61 07/28/24 08:26 Pulse Ox 97 07/28/24 08:26 Oxygen Delivery Method Room Air 07/28/24 08:26 BMI result Body Mass Index 29.3 Const General: healthy appearing, no acute distress and well developed Nutritional Appearance: well nourished Orientation/consciousness: patient oriented x3 HEENT Head: Yes normal to inspection, Yes normocephalic and Yes atraumatic Face and sinus: Yes normal facial exam Eyes General: appearance normal, both eyes and all related structures Neck Neck: Yes normal visual inspection Resp Effort & Inspection: normal respiratory effort, able to speak in complete sentences, no tracheal deviation and symmetric chest movement Auscultation: clear to auscultation bilaterally Cardio Jugular venous distension: no JVD Rate: regular rate Rhythm: regular rhythm Heart sounds: S1 normal heart sound present, S2 normal heart sound present, no gallops and no murmurs GI Inspection: Yes normal to inspection and No distended Palpation (GI): Soft to palpation, not firm, nontender and No hepatosplenomegaly present Auscultation: normal bowel sounds General: Yes no CVA tenderness Back/Spine/Pelvis Back: no CVA tenderness Neuro General: patient oriented x3 Gait exam (Neuro): Normal gait present Psych Appearance: grossly normal Mental Status: mental status grossly normal Speech and movement: Normal speech and movement present Affect: normal affect Attitude: cooperative Thought process: Normal thought process present Thought content: Normal thought content present Insight: Good insight present (Psych) Judgement: Good judgement present (Psych) Results Reviewed Results Reviewed: 07/14/2024 Bilirubin direct 0.4 Bilirubin indirect 1.5 Alkaline phos 161 Date of Service: 01/09/23 Procedure(s): US abdomen comp w elastography Accession Number(s): [id number] cc: Yesenia Basilio NP; Cyndie Hebert PA-C~ EXAMINATION: US COMPLETE ABDOMEN WITH LIVER ELASTOGRAPHY CLINICAL INFORMATION: Fatty liver COMPARISON: Previous CT of the abdomen and pelvis most recent January 2021 TECHNIQUE: Real-time imaging of the abdominal viscera. Noninvasive ultrasound liver fibrosis assessment is performed using Sola ElastPQ point quantification shear wave elastography (2D-SWE) with a C5-2 MHz transducer. Multiple elastography samples are obtained. FINDINGS: PANCREAS: Not well visualized due to bowel gas. Overlying bowel gas. ABDOMINAL AORTA: The proximal and distal aortic segments are normal in caliber. The mid abdominal aorta is not well visualized due to bowel gas. INFERIOR VENA CAVA: Visualized portions are normal. LIVER: Liver is difficult to visualize due to body habitus. Liver echotexture is slightly increased. No focal lesion or intrahepatic biliary duct dilatation. The right lobe measures 16 cm in length. The left lobe measures 10.5 cm in length. Portal flow is normal/hepatopedal Shear wave liver elastography median stiffness is 1.6 m/s (reference: normal median stiffness is 1.3 m/s or less). IQR/median stiffness to assess sampling precision is 0.2 (reference: good quality data set is IQR/median stiffness of 0.15 or less). GALLBLADDER: Gallbladder is normal in size. There is a small area of ring down artifact questionable for adenomyomatosis of the gallbladder wall. No gallstones are seen.. COMMON BILE DUCT: Normal in caliber measuring 0.5 cm in diameter. RIGHT KIDNEY: 2 stones measuring 4 x 5 mm and 7 mm in the lower pole. No hydronephrosis. No focal parenchymal lesions. The kidney measures 11 cm in maximum dimension. LEFT KIDNEY: 2 stones measuring 5 x 3 x 5 mm and 2 mm in the lower pole. No hydronephrosis. No focal parenchymal lesions. The kidney measures 11 cm in maximum dimension. SPLEEN: Normal. The spleen measures 10 cm in maximum dimension. FREE FLUID: None. US/US abdomen comp w elastography IMPRESSION: 1. Impression: Limited visualization of the liver, pancreas and aorta. Slightly echogenic liver. Differential would include fatty infiltration and hepatocellular disease. Bilateral renal stones. 2. Liver elastography: Limited due to sampling error. REFERENCE: Society of Radiologists in Ultrasound Liver Stiffness Thresholds (2020): LIVER STIFFNESS THRESHOLDS: *Liver Stiffness equal or less than 1.3 m/s: High probability of being normal. *Liver Stiffness less than 1.7 m/s: In the absence of other known clinical signs, rules out compensated advanced chronic liver disease. *Liver Stiffness 1.7-2.1 m/s: Suggestive of compensated advanced chronic liver disease but need further test for confirmation. *Liver Stiffness over 2.1 m/s: Rules in compensated advanced chronic liver disease. *Liver Stiffness over 2.4 m/s: Suggestive of clinically significant portal hypertension. Attending Dr: Nabil Harrison MD Operative Note Operative Note Date of Service: 05/30/22 Procedure Description: Colonoscopy Indication: screening COLONOSCOPY Procedure: The patient was placed in the left lateral decubitis position and pre-procedure medications were administered. After a digital rectal examination of the ano-rectum, the video colonoscope was inserted into the rectum and advanced through the colon to the cecum/TI. The colonoscope was slowly withdrawn in a retrograde panoramic fashion and the colon mucosa was carefully examined including a retroflexed view of the rectum. Findings and interventions are described below. Procedure Difficulty: moderate Findings: Terminal Ileum-normal Cecum:normal Ascending Colon: normal 10 mm sessile polyp removed with cold snare Transverse Colon -normal Descending Colon:normal Sigmoid Colon: normal Rectum: Retroflexion with small internal hemorrhoids, grade I Anorectum - normal Colon preparation: Mathias Bowel Preparation Scale Right colon; 2 Transverse colon: 2 Left colon; 1-2 Impression and Post Procedure Diagnosis: polyp internal hemorrhoids Plan: High fiber diet leaflet Avoid straining at stool, epsom salts and sitz bath, anusol supps or cream Repeat Colonoscopy in 1-2 years due to fair prep on left or earlier if clinically indicated ok to restart plavix tomorrow evening, can cont with aspirin Pathology Diagnosis Colon, ascending, polyp: No tissue present for evaluation; fecal material only. Assessment & Plan Assessment & Plan (1) Constipation: Code(s): K59.00 - Constipation, unspecified Category: Medical Qualifiers: Constipation type: unspecified constipation type Qualified Code(s): K59.00 - Constipation, unspecified Plan: Chronic, fairly managed with medication. Would like to review what he is taking, pt to bring medications to our next visit. Colonoscopy screening as below. Reinforced lifestyle modifications to promote regularity: -higher fiber diet -adequate hydration with water -150 minutes of moderate intensity exercise per week (2) Nephrolithiasis: Code(s): N20.0 - Calculus of kidney Category: Medical Plan: Noted on outside CT 07/25/2024 -nonobstructing bilateral kidney stone measuring up to 0.6 cm. Without hydronephrosis or suspicious mass. Advised adequate hydration. Keep follow-up appointment with PCP. Establish with [facility] [place] (3) Abdominal pain: Code(s): R10.9 - Unspecified abdominal pain Category: Medical Qualifiers: Abdominal location: right lower quadrant Qualified Code(s): R10.31 - Right lower quadrant pain Plan: High suspicion that kidney stones are the source of symptoms. Abdominal CT from 07/25/2024 negative for any acute findings in the abdomen and pelvis. No evidence of acute pancreatitis. Kidney stone as above. However, lipase elevated at 173 last week and normal range at May. Chronically elevated bilirubin and alkaline phos. We will obtain additional labs and repeat ultrasound. Constipation prevention as above (4) History of colon polyps: Code(s): Z86.0100 - Personal history of colon polyps, unspecified Category: Medical Plan: His last colonoscopy was 2022 with polypectomy + fair prep. Recommendations to repeat in 1-2 years. Due for repeat. Reviewed prep and procedure expectations. Prep Rx'd to preferred pharmacy. Plan Follow-up after colonoscopy or sooner as needed Time: I spent a total of 75 minutes on the date of encounter which includes: Preparing to see the patient (reviewed previous documentation, test results and medical history) Performing a medically appropriate exam and/or evaluation Ordering medications, tests, and procedures Documenting clinical information in the health record Orders: Orders Calprotectin, Fecal Today K59.00 - Constipation, unspecified C Reactive Protein Today R10.31 - Right lower quadrant pain, R74.8 - Abnormal levels of other serum enzymes Lipase Today R74.8 - Abnormal levels of other serum enzymes Hemoglobin A1c Today R63.4 - Abnormal weight loss US abdomen complete Today R10.31 - Right lower quadrant pain Medications: New polyethylene glycol 3350 (Miralax) per colonoscopy prep instructions 238 grams PO ONCE 238 grams 0RF bisacodyl per colonoscopy instructions 5 mg PO ONCE 3 tabs 0RF 1 day Coding Level of Care Code Established Pt Est Pt Level 4 (74987) Patient Type Established Diagnoses Constipation K59.00 Constipation type: unspecified constipation type Nephrolithiasis N20.0 Right lower quadrant abdominal pain R10.31 Abdominal location: right lower quadrant History of colon polyps Z86.0100
--- OUTSIDE RECORDS SUMMARY | 2024-07-28 08:18 | XMS_ITS | Encounter Summary ---
Author Organization [employer] Address [address] [facility] 7[address] [place] [address] Care Team Providers Care Liner Helper Name Role Phone Waleska Goldberg Primary Care Provider [phone] Reason for Visit * Reason Onset Date Comments Referral 06/30/2024 Encounter Details Date Type Department Care Team ([facility] st Contact Info) Description 06/30/2024 Telephone [facility] MED & PEDS [address] [place], [place] [phone] Waleska Goldberg FNP [address] [place] [address] Referral Social History Tobacco Use Types Packs/Day [...] PM EDT Insurance authorization for 20 visits #[id number] faxed to Jan Shen @ [phone]. * Telephone Encounter - Yvonne Palomino - 06/30/2024 12:15 PM EDT Tc from pt calling to inform was told to contact PCP to request more visit for physical therapy. Symptoms and location is still the same. Any further questions please contact pt to clarify. documented in this encounter Plan of Treatment Upcoming Encounters Date Type Department Care Team (Late st Contact Info) Description 08/09/2024 9:30 AM EDT Office Visit [facility] MED & PEDS [address] [place] [address] Waleska Goldberg FNP [address] [place] [address] 10/22/2024 11:30 AM EDT Office Visit [facility] MED & PEDS [address] [place] [address] Waleska Goldberg FNP [address] [place] [address] documented as of this encounter Visit Diagnoses Not on filedocumented in this encounter Additional Health Concerns Assessment Noted Time PHQ-9 Depression Total Score: 6 07/30/19 24 10:53 AM EDT documented as of this encounter Care Teams Liner Helper Relationship Specialty Start Date End Date Waleska Goldberg FNP [address] [place] [address] PCP - General Family Medicine 12/12/21 Gloria Flores Service Center TechnicianPatrol Supervisor 03/13/23 documented as of this encounter
--- OUTSIDE RECORDS SUMMARY | 2024-07-28 08:18 | XMS_ITS | Encounter Summary ---
Author Organization [employer] Address [address] [facility] [address] [place] [address] Care Team Providers Care Icicle Machine Operator Name Role Phone Waleska Goldberg Primary Care Provider Reason for Visit * Reason Onset Date Comments Hospital Follow-up 05/04/2024 Encounter Details Date Type Department Care Team ([facility] st Contact Info) Description 05/04/2024 Telephone [facility] [address] [place], [place] [phone] Waleska Goldberg FNP [address], [place] [phone] Hospital Follow-up Social History Tobacco Use Types [...] from pt requesting a HDF appt. Hospital: [facility] Date of admission: 04/29/2024 Discharge date: 05/01/2024 Diagnosed: Kidney stones , pt satated that at ER they placed a godfrey that has to be remove *Send message to [place] Clinical Care Coordinators documented in this encounter Plan of Treatment Upcoming Encounters Date Type Department Care Team (Late st Contact Info) Description 08/09/2024 9:30 AM EDT Office Visit [facility] [address] [place] [address] Waleska Goldberg FNP [address] [place] [address] 10/22/2024 11:30 AM EDT Office Visit [facility] [address] [place] [address] Waleska Goldberg FNP [address] [place] [address] documented as of this encounter Visit Diagnoses Not on filedocumented in this encounter Additional Health Concerns Assessment Noted Time PHQ-9 Depression Total Score: 6 07/30/19 24 10:53 AM EDT documented as of this encounter Care Teams Icicle Machine Operator Relationship Specialty Start Date End Date Waleska Goldberg FNP [address] [place] [address] PCP - General Family Medicine 12/12/21 Gloria Flores Obstetrics Gynecology PhysicianHome Sales Consultant 03/13/23 documented as of this encounter
--- OUTSIDE RECORDS SUMMARY | 2024-07-28 08:18 | XMS_ITS | Encounter Summary ---
Author Organization [employer] Address [address] [facility] [address] [place] [address] Care Team Providers Care Monitoring Specialist Name Role Phone Waleska Goldberg Primary Care Provider [phone] Encounter Details Date Type Department Care Team (Latest Contact Info) Description 07/10/2020 Abstract [facility] CONVERSIONS Dental, Provider, DDS Social History [...] Description 08/09/2024 9:30 AM EDT Office Visit [facility] [address] [place] [address] Waleska Goldberg FNP [address] [place] [address] 10/22/2024 11:30 AM EDT Office Visit [facility] [address] [place] [address] Waleska Goldberg FNP [address] [place] [address] documented as of this encounter Visit Diagnoses Not on filedocumented in this encounter Care Teams Monitoring Specialist Relationship Specialty Start Date End Date Waleska Goldberg FNP [address] [place] [address] PCP - General Family Medicine 12/12/21 Gloria Flores Cabinet ProfessionalChild Attendant 03/13/23 documented as of this encounter
--- OUTSIDE RECORDS SUMMARY | 2024-07-28 08:18 | XMS_ITS | Encounter Summary ---
Author Organization [employer] Address [address] [facility] [address] [place] [address] Care Team Providers Care Winding Operator Name Role Phone Waleska Goldberg Primary Care Provider [phone] Encounter Details Date Type Department Care Team (Latest Contact Info) Description 03/24/2019 Abstract [facility] CONVERSIONS Dental, Provider, DDS Social History Tobacco [...] Upcoming Encounters Date Type Department Care Team ( st Contact Info) Description 08/09/2024 9:30 AM EDT Office Visit [facility] [address] [place] [address] Waleska Goldberg FNP [address] [place] [address] 10/22/2024 11:30 AM EDT Office Visit [facility] [address] [place] [address] Waleska Goldberg FNP [address] [place] [address] documented as of this encounter Visit Diagnoses Not on filedocumented in this encounter Care Teams Winding Operator Relationship Specialty Start Date End Date Waleska Goldberg FNP [address] [place] [address] PCP - General Family Medicine 12/12/21 Gloria Flores Transmission RepairerBand Top Maker 03/13/23 documented as of this encounter
--- OUTSIDE RECORDS SUMMARY | 2024-07-28 08:19 | XMS_ITS ---
Author Organization [employer] Address [address] [facility] [address] [place] [address] Care Team Providers Care Transport Specialist Name Role Phone Waleska Goldberg Primary Care Provider [phone] CM Complex Status:Identified (Enrolling) Start date:07/26/2024 Enrollment reason:ADT Feed Overview Adt- [facility] ED 07/24/24. Outreach in progress on laura. Case Team Name Relationship Phone Brittanie Gonzalez RN Registered Nurse(Responsible S taff) Continued Care and Services Coordination
--- OUTSIDE RECORDS SUMMARY | 2024-07-28 08:19 | XMS_ITS | Clinical Summary ---
Author Organization [employer] Address [address] [place] [address] Care Team Providers Care Runner Worker Name Role Phone Waleska Goldberg AMERICO Primary Care Provider [phone] Allergies No known active allergies Medications UltiGuard [...] by mouth daily Active Continuous Blood Gluc Aviation Mechanic (FreeStyle Alfredo 2 [place]) deviceIndication s:Type 2 diabetes mellitus without complication, with long-term current use of insulin (CMS/HCC) Use to check blood glucose levels throughout the day 1 each 023 Active Continuous Blood Gluc Sensor (FreeStyle Alfredo 2 Sensor) miscIndications: Type 2 diabetes mellitus without complication, with long-term current use of insulin ([facility]) Use to check blood sugar levels throughout the day 2 each 023 Active Blood Glucose Monitoring Suppl (FreeStyle [place] Lite) w/Device kitIndications:T ype 2 diabetes mellitus without complication, with long-term current use of insulin ([facility]) Use to test blood sugar 1-2 times daily 1 kit 024 Active baclofen (Lioresal) 10 MG tablet TAKE 1 TABLET BY MOUTH THREE TIMES DAILY IN THE MORNING, AT NOON, AND AT BEDTIME NEEDED FOR MUSCLE SPASMS 60 tablet 1 024 Active Diclofenac Sodium 1 % gelIndications:A rthralgia of hands, bilateral APPLY 2 GRAMS TOPICALLY TO HANDS 2-3 TIMES PER DAY NEEDED FOR PAIN 100 g 2 024 Active aspirin (Aspirin Low Dose) 81 MG chewable tabletIndication s:Coronary arteriosclerosis ,Chronic systolic heart failure ([facility]) TAKE 1 TABLET BY MOUTH EVERY MORNING 90 tablet 3 024 Active isosorbide mononitrate ER (Imdur) 60 MG 24 hr tabletIndication s:Coronary arteriosclerosis ,Chronic systolic heart failure ([facility]) TAKE 1 TABLET BY MOUTH EVERY MORNING 90 tablet 3 024 Active lisinopril 2.5 MG tabletIndication s:Coronary arteriosclerosis ,Chronic systolic heart failure ([facility]/HCC) TAKE 1 TABLET BY MOUTH AT BEDTIME [...] ype 2 diabetes mellitus treated with insulin ([facility]) INJECT 30 UNITS SUBCUTANEOUSLY ONCE DAILY 15 mL 4 024 Active insulin aspart (NovoLOG FLEXPEN) 100 UNIT/ML penIndications:T ype 2 diabetes mellitus without complication, with long-term current use of insulin ([facility]) INJECT 6 UNITS SUBCUTANEOUSLY 3 [...] day. 140 g 3 025 2025 Active metFORMIN (Glucophage) 500 MG tabletIndication s:Type 2 diabetes mellitus without complication, with long-term current use of insulin ([facility]) TAKE 1 TABLET BY MOUTH TWICE DAILY IN THE MORNING AND IN THE EVENING WITH MEALS 180 tablet 3 Active TRUEplus Lancets 33G miscIndications: Type 2 diabetes mellitus without complication, with long-term current use of insulin ([facility]) USE TO TEST BLOOD SUGAR FOUR TIMES DAILY 100 each 11 Active carvedilol (Coreg) 3.125 MG tabletIndication s:Essential hypertension TAKE 1 TABLET BY MOUTH TWICE DAILY IN THE MORNING AND IN THE EVENING WITH FOOD 180 tablet 3 Active atorvastatin (Lipitor) 80 MG tabletIndication s:Other hyperlipidemia TAKE 1 TABLET BY MOUTH EVERY EVENING FOR CHOLESTEROL 90 tablet 3 Active glucose blood (FREESTYLE LITE) test stripIndications :Type 2 diabetes mellitus without complication, with long-term current use of insulin ([facility]) TEST BLOOD SUGAR FOUR TIMES DAILY AND NEEDED FOR BLOOD SUGAR <70 MG/dL 100 strip 11 Active finasteride (Proscar) 5 MG tablet Take 1 tablet by mouth Once per day. Do not crush, chew, or split. Active acetaminophen (Tylenol 8 Hour) 650 MG ER tablet TAKE 1 TABLET BY MOUTH EVERY 8 HOURS NEEDED FOR MILD PAIN. DO NOT BREAK, CRUSH, DISSOLVE OR CHEW 100 tablet 3 024 2024 Discontinued(M ed list cleanup (will not trigger notification to Pharmacy)) Flomax 0.4 MG 24 hr capsule Take 0.4 mg by mouth. 025 2024 Discontinued(M ed list cleanup (will not trigger notification to Pharmacy)) acetaminophen (Tylenol) 500 MG tablet Take 2 tablets by mouth if needed in the morning, at noon, and at bedtime for fever. 025 2024 oxyCODONE (Roxicodone) 5 MG immediate release tablet Take 0.5 tablets by mouth every 4 (four) hours if needed for severe pain. 025 2024 Active Problems Patient Care Coordination No te Formatting of this note migh t be different from the original. C3/CM Yesenia Page RN Problem Noted Date Diagnosed Date Fracture of left patella with routine healing Overview (05/23/2024): Following with [facility] Ortho - Dr. Monahan Assessment & Plan [...] Previous trials: prednisone, avoid NSAIDs with hx MA, APAP not effective. - Plan: short course [...] knee 08/30/2023 Overview (04/16/2024): - Followed by [facility] Ortho - Plan for trial knee sleeve and activity modification. If no improvement with conservative measures, may consider injections - Consult Jan 2024: received steroid injection. Not good surgical candidate. Assessment & Plan (01/11/2024 5:18 PM EDT): Currently described as one of most painful sites of LLE. No red flag symptoms on exam today. Called and scheduled for appt with [facility] Ortho in 2 weeks. ED precautions sooner [...] precautions Healthcare maintenance 05/26/2023 Overview (04/16/2024): Dental: [facility] Dental Optometry: 10/07/22: SHELBY w/o diabetic retinopathy or diabetic macular edema. Colonoscopy: 05/30/22 at [facility] GI - Dr. Harrison. Plan to repeat in 1-2 years d/t poor prep. Referral to re-establish with GI sent 04/16/24. Assessment & Plan (08/30/2023 10:39 AM EDT): Declines COVID & PCV20 vaccines 08/29/23 Benign prostatic hyperplasia with urinary freque ncy 05/13/2022 Assessment & Plan (07/31/2023 7:22 PM EDT): Following with [facility] Urology - Dr. Arboleda Continues with tamsulosin 0.4mg nightly Chronic pelvic pain in male 05/13/2022 Overview (08/29/2023): -Following with [facility] Urology -Previous recommendation for pelvic floor physical [...] heart failure 04/17/2018 Overview (06/16/2022): -Followed by [facility] cardiology. Dr. Esteves -Hx of cardiac catheterization in [place] due to MA that led to coronary artery bypass surgery -Had further cardiac cath in [place] in 2018 that led to stenting of OM2 branch. -Pt to continue anticoagulation and nitroglycerin as needed through Cards Assessment & Plan (07/19/2024 4:43 PM EDT): - Given extensive cardiac history, transferred urgently to [facility] ED for further eval Coronary arteriosclerosis 04/17/2018 Diabetic neuropathy 04/17/2018 Essential hypertension 04/17/2018 Generalized ischemic myocardial dysfunction 07/2018 S/P CABG x 5 04/17/2018 Type 2 diabetes mellitus 04/17/2018 Overview (07/19/2024): -Previously followed by [facility] Endo for management, although previous provider left and have not yet established with new provider -Reports BG readings usually ~120 fasting, and then around 100-200 throughout the day -Current regimen includes: -30 units nightly lantus -Novolog 6 units before meals -metformin 500mg BID -CGM approved, plan for initial teaching and device application 08/14/[address] [facility] Pharmacy -Podiatry: referral placed 06/05/22 -Optometry: last CEE September 2022 ([facility] Eye Care) Lab Results Component Value Date HGBA1C 8.9 (A) 07/16/2024 Assessment & Plan (07/19/2024 4:41 PM EDT): Unable to review A1c reading with patient today given urgency of symptoms Assessment & Plan (04/16/2024 8:55 PM EST): [...] 23 08/17/2022 Overview (08/17/2022): ?? Followed by [facility] Pain Management Abdominal pain of unknown cause 05/13/2022 08/30/2023 UTI symptoms 05/13/2022 06/16/2022 Pain in joint of left shoulder 11/19/2018 06/16/2022 Inguinal lymphadenopathy 08/27/201808/2022 Trigger ring finger of right hand 06/08/2018 06/16/2022 Encounters Date Type Department Care Team Description 07/27/2024 Patient Outreach [facility] MEDICINE [address] [place] [phone] Waleska Goldberg FNP 07/26/2024 Patient Outreach [facility] MEDICINE [address] [place] [address] Waleska Goldberg FNP Transition Of Care (Tcm) 07/26/2024 Patient Outreach [facility] MEDICINE [address] [place] [phone] Waleska Goldberg FNP 07/23/[address] [facility] CHC MED & PEDS [address] [place], [place] [phone] Waleska Goldberg FNP TC: Med Consult 07/21/2024 Patient Outreach [facility] MEDICINE [address] [place] [address] Waleska Goldberg FNP Transition Of Care (Tcm) (HDF scheduled) 07/16/2024 11:30 AM EDT Office Visit [facility] MED & PEDS [address] [place] [address] Waleska Goldberg FNP Chronic systolic heart failure (CMS/HCC) (Primary Dx); Type 2 diabetes mellitus without complication, with long-term current use of insulin (CMS/HCC); Right hand pain; Dizziness 07/16/[address] [facility] MED & PEDS [address] [place] [address] Waleska Goldberg FNP 07/16/2024 Travel 07/13/[address] [facility] MED & PEDS [address] [place] [address] Waleska Goldberg FNP Chart Prep 07/13/2024 Patient Outreach [facility] MEDICINE [address] [place] [address] Waleska Goldberg FNP Care Coordination (Outreach) 06/30/[address] [facility] MED & PEDS [address] [place] [address] Waleska Goldberg FNP Referral 06/30/[address] [facility] MED & PEDS [address] [place] [address] Waleska Goldberg FNP Novolog 06/30/[address] [facility] MED & PEDS [address] [place] [address] Waleska Goldberg FNP Results ([facility] Med & Peds Nurses/ Please call to review imaging: XR left foot demonstrated heel spurs and mild degenerative changes/arthritis. If he is not already following with podiatry, please let me know if he is interested in a referral. /) 06/25/2024 Population Health Risk Score Community Care [facility] (C3) Department [address] [place] [address] [phone] Provider, Population Health Generic 06/15/[address] [facility] MEDICINE [address] [place] [address] Waleska Goldberg FNP Type 2 diabetes mellitus without complication, with long-term current use of insulin ([facility]); Essential hypertension; Other hyperlipidemia 06/10/[address] [facility] MED & PEDS [address] [place] [address] Waleska Goldberg MOUNTER [employer]OMAT[employer] Care Coordination (Outreach) 06/09/2024 Travel 06/07/[address] [facility] MED & PEDS [address] [place] [address] Waleska Goldberg [employer]OUNTER [employer]OM[employer] Fracture of left patella with routine healing 06/02/[address] [facility] MED & PEDS [address] [place] [address] Waleska Goldberg, MOUNTER AUTOMATIC Fracture of left patella with routine healing 06/01/[address] [facility] MED & PEDS [address] [place] [address] Aileen Ford RN 06/01/[address] [facility] MEDICINE [address] [place] [address] Waleska Goldberg FNP Fracture of left patella with routine healing 05/24/[address] [facility] MED & PEDS [address] [place] [address] Waleska Goldberg FNP Transition Of Care (Tcm) 05/24/[address] [facility] MED & PEDS [address] [place] [address] Waleska Goldberg FNP Transition Of Care (Tcm) 05/21/2024 3:30 PM EST Office Visit [facility] MED & PEDS [address] [place] [address] Waleska Goldberg FNP Suprapubic pain (Primary Dx); Benign prostatic hyperplasia with urinary frequency; Lumbar spondylosis; Fracture of left patella with routine healing; Urinary retention 05/21/2024 Travel 05/21/2024 Orders Only GENERIC EXTERNAL DATA DEPARTMENT Provider, Generic External Data 05/20/[address] [facility] MED [facility] PEDS [address] [place] [address] Waleska Goldberg FNP Care Coordination (Outreach) 05/10/[address] [facility] MED & PEDS [address] [place] [address] Waleska Goldberg FNP Urology Referral: Urgent 05/10/[address] [facility] MED & PEDS [address] [place] [address] Waleska Goldberg FNP Transition Of Care (Tcm) 05/06/[address] [facility] MED & PEDS [address] [place] [address] Waleska Goldberg FNP TC: HDF 05/06/[address] [facility] MEDICINE [address] [place] [phone] Waleska Goldberg FNP Med Refill 05/06/[address] [facility] MED & PEDS [address] [place] [address] Waleska Goldberg FNP Care Coordination (Outreach) 05/05/[address] [facility] MED & PEDS [address] [place] [address] Waleska Goldberg FNP Fracture of left patella with routine healing 05/04/[address] [facility] MED & PEDS [address] [place] [address] Waleska Goldberg FNP Transition Of Care (Tcm) (HDF- scheduled and SDOH screening positive and Tobacco screening negative) 05/04/[address] [facility] MEDICINE [address] [place] [phone] Waleska Goldberg FNP Hospital Follow-up 04/30/[address] [facility] MED & PEDS [address] [place], [place] [phone] Waleska Goldberg FNP Care Coordination (Outreach) from Last 3 Months Immunizations Name Administration [...] Sign Reading Time Taken Comments Blood Pressure 128/100 07/16/2024 12:29 PM EDT Pulse 102 07/16/2024 12:29 PM EDT Temperature 36.6 ??C (97.8 ??F) 07/16/2024 12:29 PM E DT Respiratory Rate 20 07/16/2024 12:29 PM EDT Oxygen Saturation 96% 07/16/2024 12:29 PM EDT Inhaled Oxygen Concentration - - Weight 77.6 kg (171 lb) 07/16/2024 12:29 PM EDT Height 172.7 cm (5' 8 ) 07/16/2024 12:29 PM EDT Body Mass Index 26 07/16/2024 12:29 PM EDT Plan of Treatment Upcoming Encounters Date Type Department Care Team (Late st Contact Info) Description 08/09/2024 9:30 AM EDT Office Visit [facility] MED & PEDS [address] [place] [address] Waleska Goldberg, [employer]OUNTER [employer]OM[employer] [address] [place] [address] 10/22/2024 11:30 AM EDT Office Visit [facility] MED & PEDS [address] [place] [address] Waleska Goldberg FNP [address] [place] [address] Health Maintenance Due Date Last Done Comments [...] Oral Exam 03/09/2023 09/05/2022 COVID-19 Vaccine ( - season) 2023 07/21/2020, 06/23/2020 Influenza Vaccine (#1) 2023 9, 01/04/2019, 04/17/2018 Dental Prophylaxis 12/28/2023 06/26/2023 Colonoscopy 05/30/2024 05/30/2022 Colorectal Cancer Screening 05/30/2024 Dental X-Ray: Bitewings 06/26/2024 06/26/2023, 08/15 Depression Screening 07/29/2024 07/30/2023, 07/30/19 Eye Exam 10/07/2024 10/07/2022, 09/13, 10/07/2022, Additional history exists Diabetes: Hemoglobin A1C 10/15/2024 025, 04/16/2024, 01/02/2024, Additional history exists Alcohol/Substance Use Screening 04/16/2025 [...] Name Priority Date/Time Associated Diagnosis Comments POCT GLYCATED HEMOGLOBIN, TOTAL Routine 07/16/2024 4:31 PM EDT Type 2 diabetes mellitus without complication, with long-term current use of insulin ([facility]) POCT GLUCOSE Routine 07/16/2024 4:28 PM EDT Type 2 diabetes mellitus without complication, with long-term current use of insulin ([facility]) AMB REFERRAL TO UROLOGY Urgent 07/13/2024 Benign prostatic hyperplasia with urinary frequency Urinary retention XR FOOT 3+ VIEWS LEFT Routine 06/25/2024 [...] AUTO DIFFERENTIAL Routine 05/21/2024 11:43 AM EST PROPHYLAXIS - ADULT Routine 06/26/2023 8 :00 [...] to Health Maintenance Results * (ABNORMAL) POCT HGB A1C (07/16/2024 4:31 PM EDT) Hemoglobin A1C 8.9(A) 4.0 - 6.0 % QC Media Lot # [id number] Lot# Expiration Date ,026 Blood 07/16/2024 4:31 PM EDT Waleska Goldberg [employer] POINT OF CARE TEST ENTER/EDIT ORDERABLES Final Result * (ABNORMAL) POCT Glucose (07/16/2024 4:28 PM EDT) Only the most recent of2 resultswithin the time period is included. Glucose Blood, POC 422(A) 60 - 200 mg/dL QC Media Lot # [id number] Lot# Expiration Date 732,025 Blood Capillary blood specimen / Unknown 07/16/2024 4:28 PM EDT Waleska Goldberg [facility] POINT OF CARE TEST ENTER/EDIT ORDERABLES Final Result * Referral to Urology (07/13/2024) us Waleska Goldberg [facility] OUTPATIENT REFERRAL ORDERABLES Edited Result - Final * XR Foot 3+ Views Left (06/25/2024 8:54 AM EDT) Anatomical Region Laterality Modality Lower Extremities, Foot Left Radiogra phic Imaging 06/25/2024 8:54 AM EDT Narrative 06/25/2024 8:55 AM EDT ? [facility] ?[address] ?[place] [address] ?XRay Report ? Signed ? Patient: Barrett Goldman ?MR#: [id number] ?? [id number] ? : 1965 ?Acct:[id number] ? Age/Sex: 59 / M ?ADM Date: 03/13/25 ? Loc: HO.XRAY ? Attending Dr: Cheyl BINGHAM ? Ordering Physician: Waleska Goldberg ?? Date of Service: 06/24/24 ?? Procedure(s): XR foot LT min 3V ?? Accession Number(s): [id number] ? cc: Waleska Goldberg ? CLINICAL HISTORY: [...] 06/25/24 0855 ? DD/ 0854 ? TD/TT: 06/25/2454 ? Technical Associate: ? Procedure Note Fritz Santana - 06/25/2024 [place] [address] XRay Report Signed Patient: Barrett Goldman AMR#: [id number] : 1965Acct:[id number] Age/Sex: 59 / MADM Date: 06/24/24 Loc: [facility] Attending Dr: Chely Randhawa [employer] Ordering Physician: Waleska Goldberg Date of Service: 06/24/24 Procedure(s): XR foot LT min 3V Accession Number(s): [id number] cc: Waleska Goldberg CLINICAL HISTORY: 58 y [...] Mathews MD in OV> 06/25/24 0855 DD/ TD/TT: 06/25/24853 Technical Associate: Waleska OWENSP IMG XR PROCEDURES Final Result * POCT Urinalysis (05/21/2024 4:49 [...] Expiration Date Urine 05/21/2024 4:49 PM EST Waleska OWENSP POINT OF CARE TEST ENTER/EDIT ORDERABLES Final Result * (ABNORMAL) Glucose, Whole Blood (05/21/2024 1:35 PM EST) Glucose, Whole Blood 318(H) 60 - 115 mg/dL [facility] Comment:METER #: [id number] 05/21/2024 1:35 PM EST 05/21/2024 1:39 PM EST Generic External Data Provider LAB BLOOD ORDERAB LES Final Result [facility] [address] [place] [phone] * (ABNORMAL) Urinalysis, Complete, with Reflex to Culture (05/21/2024 11:43 AM EST) Color Urine Yellow [facility] Appearance Urine Clear [facility] PH 5.5 5.0 - 9.0 [facility] Glucose Urine UA >=1000(A) Negative mg/dL [facility] Urine Blood Negative Negative [facility] Specific [place] - Urine >=1.030(H) 1.005 - 1.025 [facility] Urine Protein Negative Neg-Trace mg/dL [facility] Urine Ketones Negative Negative mg/dL [facility] Nitrite Urine Negative Negative [facility] Leukocyte Esterase Urine Negative Negative [facility] RBC Urine 0-2 0 - 2 /HPF [facility] Urine WBC 0-5 0 - 5 /HPF [facility] Urine Squamous Epithelial Cell 0-2 0 - 2 /HPF [facility] Urine Bacteria None Seen None Seen [facility] Hyaline Casts, Urine 0-2 0 - 2 /LPF [facility] 05/21/2024 11:4 3 AM EST 05/21/2024 11:49 AM EST Narrative [facility] - 05/21/2024 12:15 PM EST [id number], Clean Catch us Generic External Data Provider LAB URINE ORDERAB LES Final Result Performing Organization Address City/State/[facility] Co de Phone Number [facility] [address] [place] [phone] * (ABNORMAL) CBC auto differential (05/21/2024 11:43 AM EST) White Blood Count 6.1 4.8 - 10.8 X10*3/uL [facility] Red Blood Count 5.10 4.60 - 5.80 X10*6/uL [facility] Hemoglobin 15.7 14.0 - 18.0 g/dl [facility] Hematocrit 44.8 42.0 - 52.0 % [facility] Mean Corpuscular Volume 87.8 80.0 - 98.0 fL [facility] Mean Corpuscular Hemoglobin 30.8 27.0 - 33.0 pg [facility] Mean Corpuscular HGB Conc 35.0 31.0 - 36.0 g/dl [facility] Red Cell Distribution Width 12.3 11.0 - 16.0 % [facility] Platelet Count 189 160 - 400 X10*3/uL [facility] Mean Platelet Volume 10.7 9.4 - 12.4 fL [facility] Neutrophils Percent Auto 64.5 45 - 73 % [facility] Imm Gran Pct Auto 0.5(H) 0.0 - 0.4 % [facility] Lymphocytes Percent Auto 23.3 20 - 40 % [facility] Monocytes Percent Auto 6.9 2 - 11 % [facility] Eosinophils Percent Auto 4.1(H) 0 - 4 % [facility] Basophils Percent Auto 0.7 0 - 2 % [facility] NRBC Pct Auto 0.0 0.0 - 0.2 /100WBC [facility] Neutrophils Absolute Auto 3.9 2.0 - 8.3 x10*3/uL [facility] Imm Gran Abs Auto 0.03 0.00 - 0.03 X10*3/uL [facility] Lymphocytes Absolute Auto 1.4 1.2 - 4.9 X10*3/uL [facility] Monocytes Absolute Auto 0.4 0.1 - 1.2 X10*3/uL [facility] Eosinophils Absolute Auto 0.3 0.0 - 0.4 X10*3/uL [facility] Basophils Absolute Auto 0.0 0.0 - 0.2 X10*3/uL [facility] NRBC Abs Auto 0.000 0.0 - 0.012 X10*3/uL [facility] 05/21/2024 11:4 3 AM EST 05/21/2024 11:49 AM EST us Generic External Data Provider LAB BLOOD ORDERAB LES Final Result [facility] [address] [place] [phone] [phone] * Magnesium (05/21/2024 11:43 AM EST) Pathologist [facility] Magnesium 2.0 1.6 - 2.6 mg/dL [facility] 05/21/2024 11:4 3 AM EST 05/21/2024 11:49 AM EST us Generic External Data Provider LAB BLOOD ORDERAB LES Final Result Performing Organization Address [facility]/ZIP Co de Phone Number [facility] [address] [place] [phone] * Lipase (05/21/2024 11:43 AM EST) Pathologist [facility] Lipase 35 8 - 78 U/L [facility] 05/21/2024 11:4 3 AM EST 05/21/2024 11:49 AM EST Generic External Data Provider LAB BLOOD ORDERAB LES Final Result Performing Organization Address City/[facility] de Phone Number [facility] [address] [place] [phone] * (ABNORMAL) Comprehensive Metabolic Panel (05/21/2024 11:43 AM EST) [facility] Sodium 134(L) 135 - 145 mmol/L [facility] Potassium 4.1 3.3 - 5.1 mmol/L [facility] Chloride 107 96 - 108 mmol/L [facility] Carbon Dioxide 22 22 - 29 mmol/L [facility] Anion Gap 9(L) 12 - 20 [facility] Urea Nitrogen (BUN) 19(H) 9 - 16 mg/dL [facility] Creatinine, Serum 1.04 0.5 - 1.4 mg/dL [facility] Creatinine Clr Calc Pharmacy 74.7 [facility] Comment:eGFR (calculated fro m the MDRD study equation) and eCrCl(calculated from the Cockcroft-Gault equation) are based ondifferent parameters and may not yield comparable results.If eCrCl result is absurd, please check patient'sheight/weight. Estimated Glomerular Filt Rate >60 [facility] Comment:Chronic Kidney Disea se: Estimated GFR < 60 mL/min/1.34i2Buthnx Kidney Disease: Estimated GFR < 15 mL/min/1.73m2 Glucose 296(H) 60 - 115 mg/dL [facility] Calcium 9.0 8.4 - 10.2 mg/dL [facility] Bilirubin, Total 1.7(H) 0.0 - 1.0 mg/dL [facility] Aspartate Amino Transferase 21 5 - 37 U/L [facility] LABS Alanine Aminotransferase 23 0 - 40 U/L [facility] Total Protein 7.4 6.5 - 8.0 g/dL [facility] Albumin Level 4.2 3.5 - 5.0 g/dL [facility] Alkaline Phosphatase 142(H) 39 - 117 U/L [facility] 05/21/2024 11:4 3 AM EST 05/21/2024 11:49 AM EST us Generic External Data Provider LAB BLOOD ORDERAB LES Final Result [facility] [address] [place] [phone] * Hm Colonoscopy (05/30/2022 9:04 PM EST) Historical Provider HEALTH MAINTENANCE Final Result * MICROALBUMIN/CREATININE RATIO, RANDOM URINE (08/06/2021 8:19 AM EDT) Creatinine Urine 104.90 mg/dL [facility] Microalbum/Creati nine Ratio Ur 8.5 ug/mg cr [facility] Comment: ?Albumin/Creatinine Ratio Reference Ranges: ? Normal: < 30 ug/mg creatinine ? Microalbuminuria: ??30 - 300 ug/mg creatinine Clinical Albuminuria: ??> 300 ug/mg creatinine Microalbumin Urine 9.0 mg/L [facility] 08/06/2021 8:19 AM EDT us Historical Provider MD HISTORICAL/NON ORDERABLE LABS Final Result [facility] [address] [id number], * (ABNORMAL) LIPID PANEL (05/07/2021 9:10 AM [...] liver disease. LDL Cholesterol Calculated 71 mg/dl [facility] Comment: Desirable LDL: ? less than 100 mg/dL Near Optimal/Above Optimal LDL: ??110-129 mg/dL Borderline High LDL: ? 130-159 mg/dL High LDL: ?160-189 mg/dL Very High LDL: ? greater than or equal to ?190 mg/dL Triglycerides 77 mg/dL [facility] Comment: Desirable Triglyceride: ? less than 150 mg/dL Borderline High Triglyceride ??150-199 mg/dL High Triglyceride: ?200-499 mg/dL Very High Triglyceride: ? greater than or equal to ? 5OO mg/dL Alanine Aminotransferase 23 0 - 40 U/L [facility] Albumin Level 4.4 3.5 - 5.0 g/dL [facility] Alkaline Phosphatase 109 39 - [...] >60 [facility] Comment: NOTE: ??For -[place] individuals, multiply the result ?by . ?? Chronic Kidney Disease: ??Estimated GFR < [...] Historical Provider HISTORICAL/NON ORDERABLE LABS Final Result [facility] [address] from Last 3 Months or Most Recently Relevant to Health Maintenance Insurance [facility] C3 [place] AD[place] Care Teams Runner Worker Relationship Specialty Start Date End Date Waleska Goldberg FNP [address] [place] [address] PCP - General Family Medicine 12/12/21 Gloria Flores Cost Estimating ClerkGame Operator 03/13/23
--- OUTSIDE RECORDS SUMMARY | 2024-07-28 08:19 | XMS_ITS | Encounter Summary ---
Author Organization [employer] Address [address] [facility] 7t [place] [address] Care Team Providers Care Loader Name Role Phone Waleska Goldberg Primary Care Provider [phone] Reason for Visit * Reason Onset Date Comments TC: Med Consult 07/23/2024 Encounter Details Date Type Department Care Team ([facility] st Contact Info) Description 07/23/2024 Telephone [facility] MED & PEDS [address] [place], [place] [phone] Waleska Goldberg FNP [address] [place] [address] TC: Med Consult Social History Tobacco Use Types Packs/Day Years [...] encounter Miscellaneous Notes * Telephone Encounter - Danya Bean RN - 07/26/2024 10:10 AM EDT TC to pt with civil cad designer services to instruct to hold the Flexeril. Advised pt on reason of holding medication until f/u with PCP. Pt verbalized understanding and agreement with plan. * Telephone Encounter - AMERICO Lebron - 07/23/2024 9:45 AM EDT Received the following message from pharmacist, please review and contact pt to advise. Thank you! Jeremiah Galeano! I'm working on discharge for Barertt and he was discharged yesterday a 7 day supply of cyclobenzaprineand patient does report using it. Per the packaged insert, cyclobenzaprine is contraindicated in HFdue to its risk of arrhythmias and his HDF is not until 08/09/24 at which point he will have completed the course. I wanted to let you know in case you wished to intervene and outreach him to discontinue it before the appointment. Thank you! documented in this encounter Plan of Treatment Upcoming Encounters Date Type Department Care Team (Late st Contact Info) Description 08/09/2024 9:30 AM EDT Office Visit [facility] MED & PEDS [address] [place] [address] Waleska Goldberg FNP [address] [place] [address] 10/22/2024 11:30 AM EDT Office Visit [facility] MED & PEDS [address] [place] [address] Waleska Goldberg FNP [address] [place] [address] documented as of this encounter Visit Diagnoses Not on filedocumented in this encounter Additional Health Concerns Assessment Noted Time PHQ-9 Depression Total Score: 6 07/30/19 24 10:53 AM EDT documented as of this encounter Care Teams Loader Relationship Specialty Start Date End Date Waleska Goldberg FNP [address] [place] [address] PCP - General Family Medicine 12/12/21 Gloria Flores AnodiserCollection Analyst 03/13/23 documented as of this encounter
--- OUTSIDE RECORDS SUMMARY | 2024-07-28 08:19 | XMS_ITS | Encounter Summary ---
Author Organization [employer] Address [address] [facility] 7t [place] [address] Care Team Providers Care Hvac Operations Technician Name Role Phone Waleska Goldberg Primary Care Provider [phone] Reason for Visit * Reason Comments Med Refill Encounter Details Date Type Department Care Team (Late st Contact Info) Description 06/07/2024 Refill [facility] CHC MED & PEDS [address] [place], [place] [phone] Waleska Goldberg FNP 505 [place] [address] Fracture of left patella with routine healing [...] pt regarding message below via BLS ID# [id number]. Pt stated he has an appt scheduled [...] refill of Percocet. Called via BLS ID# [id number]. Also called pt on 06/01/24 advisingof the message from PCP on 06/01/24: Please let him know that short course of opioid was sent in with plan for no refills. He should hopefully be feeling better, but if not, will need to follow up for visit. Walk in [place] extended open tonight PRN. Thank you! Pt then verbalized understanding. Pt called again for a refill today. Stated he does not want to goto walk in [place], asked for a f/u appt with PCP which was scheduled for 07/16/24. Pt verbalized understanding. documented in this encounter Plan of Treatment Upcoming Encounters Date Type Department Care Team (Late st Contact Info) Description 08/09/2024 9:30 AM EDT Office Visit [facility] MED & PEDS [address] [place] [address] Waleska Goldberg FNP [address] [place] [address] 10/22/2024 11:30 AM EDT Office Visit [facility] MED & PEDS [address] [place] [address] Waleska Goldberg FNP [address] [place] [address] documented as of this encounter Visit Diagnoses Diagnosis Fracture of left patella with routine healing documented in this encounter Additional Health Concerns Assessment Noted Time PHQ-9 Depression Total Score: 6 07/30/19 24 10:53 AM EDT documented as of this encounter Care Teams Hvac Operations Technician Relationship Specialty Start Date End Date Waleska Goldberg FNP [address] [place] [address] PCP - General Family Medicine 12/12/21 Gloria Flores Landscape PainterBuckram Sewer 03/13/23 documented as of this encounter
--- OUTSIDE RECORDS SUMMARY | 2024-07-28 08:19 | XMS_ITS | Encounter Summary ---
Author Organization [employer] Address [address] [facility] 7t [place] [address] Care Team Providers Care Ski Topper Name Role Phone Waleska Goldberg Primary Care Provider [phone] Reason for Visit * Reason Onset Date Comments Med Refill 05/06/2024 Encounter Details Date Type Department Care Team (Late st Contact Info) Description 05/06/2024 Telephone [facility] MEDICINE [address] [place], [place] [phone] Waleska Goldberg FNP [address] [place], [place] [phone] Med Refill Social History Tobacco Use Types [...] 10-325 MG tablet To be sent to: [facility] - [place], [place] - [address] [facility] documented in this encounter Plan of Treatment Upcoming Encounters Date Type Department Care Team (Late st Contact Info) Description 08/09/2024 9:30 AM EDT Office Visit [facility] MED & PEDS [address] [place] [address] Waleska Goldberg FNP 505 [place] [address] 10/22/2024 11:30 AM EDT Office Visit [facility] MED & PEDS [address] [place] [address] Waleska Goldberg FNP 505 [place] [address] documented as of this encounter Visit Diagnoses Not on filedocumented in this encounter Additional Health Concerns Assessment Noted Time PHQ-9 Depression Total Score: 6 07/30/19 24 10:53 AM EDT documented as of this encounter Care Teams Ski Topper Relationship Specialty Start Date End Date Waleska Goldberg FNP [address] [place] [address] PCP - General Family Medicine 12/12/21 Gloria Flores Social Research AssistantScience Writer 03/13/23 documented as of this encounter
--- OUTSIDE RECORDS SUMMARY | 2024-07-28 08:19 | XMS_ITS | Encounter Summary ---
Author Organization [employer] Address [address] [facility] [address] 7[address] [place] [address] Care Team Providers Care Focuser Name Role Phone Waleska Goldberg Primary Care Provider [phone] Encounter Details Date Type Department Care Team ([facility] st Contact Info) Description 07/26/2024 Patient Outreach [facility] MEDICINE [address] [place] [address] Waleska Goldberg FNP [address] [place], [place] [phone] Social History Tobacco Use Types Packs/Day Years [...] Description 08/09/2024 9:30 AM EDT Office Visit [facility] MED & PEDS 505 [place] [address] Waleska Goldberg FNP [address] [place] [address] 10/22/2024 11:30 AM EDT Office Visit [facility] MED & PEDS [address] [place] [address] Waleska Goldberg FNP [address] [place] [address] documented as of this encounter Visit Diagnoses Not on filedocumented in this encounter Additional Health Concerns Assessment Noted Time PHQ-9 Depression Total Score: 6 07/30/19 24 10:53 AM EDT documented as of this encounter Care Teams Focuser Relationship Specialty Start Date End Date Waleska Goldberg FNP [address] [place] [address] PCP - General Family Medicine 12/12/21 Gloria Flores Applications CoordinatorSugar Coating Hand 03/13/23 documented as of this encounter
--- OUTSIDE RECORDS SUMMARY | 2024-07-28 08:19 | XMS_ITS | Encounter Summary ---
Author Organization [employer] Address [address] [facility] [address] 7[address] [place] [address] Care Team Providers Care Hospital Manager Name Role Phone Waleska Goldberg Primary Care Provider [phone] Reason for Visit * Reason Comments Med Refill Encounter Details Date Type Department Care Team (Late st Contact Info) Description 09/28/2023 Refill [facility] MEDICINE [address] [place] [address] Waleska Goldberg FNP [address] [place], [place] [phone] Insomnia, unspecified type Social History Tobacco Use [...] 08/09/2024 9:30 AM EDT Office Visit [facility] MED & PEDS [address] [place] [address] Waleska Goldberg FNP [address] [place] [address] 10/22/2024 11:30 AM EDT Office Visit [facility] MED & PEDS [address] [place] [address] Waleska Goldberg FNP [address] [place] [address] documented as of this encounter Visit Diagnoses Diagnosis Insomnia, unspecified type documented in this encounter Additional Health Concerns Assessment Noted Time PHQ-9 Depression Total Score: 6 07/30/19 24 10:53 AM EDT documented as of this encounter Care Teams Hospital Manager Relationship Specialty Start Date End Date Waleska Goldberg FNP [address] [place] [address] PCP - General Family Medicine 12/12/21 Gloria Flores Office Machine Repair Shop SupervisorNib Assembler 03/13/23 documented as of this encounter
--- OUTSIDE RECORDS SUMMARY | 2024-07-28 08:19 | XMS_ITS | Encounter Summary ---
Author Organization [employer] Address [address] [facility] 7t [place] [address] Care Team Providers Care All Source Analyst Name Role Phone Waleska Goldberg Primary Care Provider [phone] Reason for Visit * Reason Onset Date Comments Referral 05/28/2022 Encounter Details Date Type Department Care Team (Late st Contact Info) Description 05/28/2022 Telephone [facility] MEDICINE [address] [place] [address] Waleska Goldberg FNP 505 [place] [address] Referral Social History Tobacco Use Types Packs/Day [...] Description 08/09/2024 9:30 AM EDT Office Visit [facility] MED & PEDS 505 [place] [address] Waleska Goldberg FNP [address] [place], [place] [phone] 10/22/2024 11:30 AM EDT Office Visit [facility] MED & PEDS [address] [place], [place] [phone] Waleska Goldberg FNP [address] [place], [place] [phone] documented as of this encounter Visit Diagnoses Not on filedocumented in this encounter Care Teams All Source Analyst Relationship Specialty Start Date End Date Waleska Goldberg FNP [address] [place] [address] PCP - General Family Medicine 12/12/21 Gloria Flores Metallurgical SpecialistEnglish Horn Player 03/13/23 documented as of this encounter
--- OUTSIDE RECORDS SUMMARY | 2024-07-28 08:19 | XMS_ITS | Encounter Summary ---
Author Organization [employer] Address [address] [facility] [address] 7[address] [place] [address] Care Team Providers Care Blast Furnace Keeper Helper Name Role Phone Waleska Goldberg Primary Care Provider [phone] Reason for Visit * Reason Onset Date Comments Med Refill 06/01/2024 Encounter Details Date Type Department Care Team (Late st Contact Info) Description 06/01/2024 Refill [facility] MEDICINE [address] [place] [address] Waleska Goldberg FNP [address] [place] [address] Fracture of left patella with routine healing [...] up for visit. [facility] Thank you! * Telephone Encounter - Dee Nuñez - 06/01/2024 3:53 PM EST TC from pt requesting medication refill. Medications needing refill : oxyCODONE-acetaminophen (Percocet) 10-325 MG tablet To be sent to: [facility]/pharmacy #[id number] documented in this encounter Plan of Treatment Upcoming Encounters Date Type Department Care Team ([facility] st Contact Info) Description 08/09/2024 9:30 AM EDT Office Visit [facility] MED & PEDS [address] [place], [place] [phone] Waleska Goldberg FNP [address] [place], [place] [phone] 10/22/2024 11:30 AM EDT Office Visit [facility] CHC MED & PEDS 505 [place], [place] [phone] Waleska Goldberg FNP [address] [place] [address] documented as of this encounter Visit Diagnoses Diagnosis Fracture of left patella with routine healing documented in this encounter Additional Health Concerns Assessment Noted Time PHQ-9 Depression Total Score: 6 07/30/19 24 10:53 AM EDT documented as of this encounter Care Teams Blast Furnace Keeper Helper Relationship Specialty Start Date End Date Waleska Goldberg FNP [address] [place] [address] PCP - General Family Medicine 12/12/21 Gloria Flores Hook LoaderPony Trimmer 03/13/23 documented as of this encounter
--- OUTSIDE RECORDS SUMMARY | 2024-07-28 08:19 | XMS_ITS | Encounter Summary ---
Author Organization [employer] Address [address] [facility] [address] 7[address] [place] [address] Care Team Providers Care Merchant Patroller Name Role Phone Waleska Goldberg Primary Care Provider [phone] Encounter Details Date Type Department Care Team ([facility] st Contact Info) Description 07/27/2024 Patient Outreach [facility] MEDICINE [address] [place] [address] Waleska Goldberg FNP [address] [place], [place] [phone] Social History Tobacco Use Types Packs/Day Years [...] Description 08/09/2024 9:30 AM EDT Office Visit [facility] MED & PEDS [address] [place] [address] Waleska Goldberg FNP [address] [place] [address] 10/22/2024 11:30 AM EDT Office Visit [facility] MED & PEDS [address] [place] [address] Waleska Goldberg FNP [address] [place] [address] documented as of this encounter Visit Diagnoses Not on filedocumented in this encounter Additional Health Concerns Assessment Noted Time PHQ-9 Depression Total Score: 6 07/30/19 24 10:53 AM EDT documented as of this encounter Care Teams Merchant Patroller Relationship Specialty Start Date End Date Waleska Goldberg FNP [address] [place] [address] PCP - General Family Medicine 12/12/21 Gloria Flores Security Solutions ArchitectSeismic Prospecting Observer Helper 03/13/23 documented as of this encounter
--- OUTSIDE RECORDS SUMMARY | 2024-07-28 08:19 | XMS_ITS | Encounter Summary ---
Author Organization [employer] Address [address] [facility] 7t [place] [address] Care Team Providers Care Java Performance Engineer Name Role Phone Waleska Goldberg Primary Care Provider [phone] Reason for Visit * Reason Comments Transition Of Care (Tcm) Encounter Details Date Type Department Care Team ([facility] st Contact Info) Description 07/26/2024 Patient Outreach [facility] MEDICINE [address] [place] [address] Waleska Goldberg FNP [address] [place] [address] Transition Of Care (Tcm) Social History Tobacco [...] as of this encounter Progress Notes * Shivani Harry RN - 07/26/2024 10:33 AM EDT Transition of Care Note Barrett Hickman is going through a recent transition of care. documented in this encounter Plan of Treatment Upcoming Encounters Date Type Department Care Team (Late st Contact Info) Description 08/09/2024 9:30 AM EDT Office Visit [facility] MED & PEDS [address] [place] [address] Waleska Goldberg FNP [address] [place] [address] 10/22/2024 11:30 AM EDT Office Visit [facility] MED & PEDS [address] [place] [address] Waleska Goldberg FNP [address] [place] [address] documented as of this encounter Visit Diagnoses Not on filedocumented in this encounter Additional Health Concerns Assessment Noted Time PHQ-9 Depression Total Score: 6 07/30/19 24 10:53 AM EDT documented as of this encounter Care Teams Java Performance Engineer Relationship Specialty Start Date End Date Waleska Goldberg FNP [address] [place] [address] PCP - General Family Medicine 12/12/21 Gloria Flores Shrimp Pond LaborerLint Cleaner 03/13/23 documented as of this encounter
--- OUTSIDE RECORDS SUMMARY | 2024-07-28 08:20 | XMS_ITS | Encounter Summary ---
Author Organization [employer] Address [address] [facility] [address] 7t [place] [address] Care Team Providers Care Material Handling Crew Supervisor Name Role Phone Waleska Goldberg INVESTMENT BANKING ANALYST Primary Care Provider Encounter Details Date Type Department Care Team ([facility] st Contact Info) Description 04/16/2024 Orders Only [facility] CHC MED & PEDS [address] [place], [place] [phone] Provider, MD Aleisha Social History Tobacco Use [...] 08/09/2024 9:30 AM EDT Office Visit [facility] MED & PEDS 505 [place] [address] Waleska Goldberg FNP [address] [place] [address] 10/22/2024 11:30 AM EDT Office Visit [facility] MED & PEDS [address] [place] [address] Waleska Goldberg FNP [address] [place] [address] documented as of this encounter Procedures Procedure Name Priority Date/Time Associated Diagnosis Comments COLONOSCOPY Routine 05/30/2022 9:04 PM EST documented in this encounter Results * Hm Colonoscopy (05/30/2022 9:04 PM EST) us Historical Provider HEALTH MAINTENANCE Final Result documented in this encounter Visit Diagnoses Not on filedocumented in this encounter Additional Health Concerns Assessment Noted Time PHQ-9 Depression Total Score: 6 07/30/19 24 10:53 AM EDT documented as of this encounter Care Teams Material Handling Crew Supervisor Relationship Specialty Start Date End Date Waleska Goldberg FNP [address] [place] [address] PCP - General Family Medicine 12/12/21 Gloria Flores Singer SongwriterMachine Shop Specialist 11/30/23 documented as of this encounter
[2024-07-28 08:26] VITALS: BP 106/61; PULSE 94; O2SAT 97; BMI 29.3
== END 2024-07-28 16:38 | disposition home or self-care (01) ==
PROVIDERS: PCP Registered Nurse; Visit Provider Nurse Practitioner Family
DX: K59.00 Constipation, unspecified (principal); N20.0 Calculus of kidney; R10.31 Right lower quadrant pain; Z86.0100 Personal history of colon polyps, unspecified
CPT/HCPCS: 99214

== ENCOUNTER → 2024-07-28 08:12 | Outpatient (BNVA) | payer MEDICAID, SELFPAY | PROVIDERS: PCP Registered Nurse; Visit Provider Nurse Practitioner Family | DX: K59.00 Constipation, unspecified (principal); N20.0 Calculus of kidney; R10.31 Right lower quadrant pain; Z86.0100 Personal history of colon polyps, unspecified | CPT/HCPCS: 99212 ==

== ENCOUNTER 2024-08-19 08:12 | Outpatient (REF) | payer MEDICAID, SELFPAY ==
--- NOTE | ~2024-08-19 | XR_ITS ---
EXAMINATION: XR HAND, RIGHT CLINICAL INFORMATION: Pain in hand s/p fall COMPARISON: None available. TECHNIQUE: PA, lateral, and oblique views of the right hand. FINDINGS: Inadequate evaluation of the carpal bones/wrist. Old traumatic deformity fifth metacarpal. Joint space narrowing at the proximal and distal interphalangeal joints of the digits from the second to the fifth. No acute cortical disruption. No gross malalignment. There is a 2 mm calcific abnormality within the deep fat planes/muscular planes of the ventral distal forearm overlapping the distal metaphysis diaphysis junction of the radius. Vascular calcifications. XR/XR hand RT min 3V IMPRESSION: No acute fracture or gross dislocation. Probable 2 mm foreign body ventral aspect distal forearm/wrist junction. 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 Osteoarthrosis. Atherosclerosis disease, peripheral. Electronically signed by: Kane Moncada MD 08/19/2024 08:53 AM EDT
[2024-08-19 09:24] LABS: Estimated Average Glucose 180 mg/dL; Hemoglobin A1C 251.4069 umol/L; Hemoglobin A1c % 7.9 % (<6.0); Total Hemoglobin (HGBA1C) 3986.9337 umol/L
[2024-08-19 09:25] LABS: Alanine Aminotransferase 21 U/L (0-40); Albumin Level 4.2 g/dL (3.5-5.0); Alkaline Phosphatase 113 U/L (39-117); Anion Gap 9 (12-20); Aspartate Amino Transferase 23 U/L (5-37); Bilirubin Total 1.6 mg/dL (0.0-1.0); Blood Urea Nitrogen 27 mg/dL (9-16); C Reactive Protein 0.16 mg/dL (< or = 0.50); Carbon Dioxide 25 mmol/L (22-29); Chloride 110 mmol/L (96-108); Cholesterol 137 mg/dL (<200); Estimated Glomerular Filt Rate > 60; Glucose Random 141 mg/dL (60-115); HDL Cholesterol 34 mg/dL (>40); LDL Cholesterol Calculated 86 mg/dL (<100); Lipase 25 U/L (8-78); Potassium 3.8 mmol/L (3.3-5.1); Sodium 140 mmol/L (135-145); Total Protein 6.8 g/dL (6.5-8.0); Triglycerides 87 mg/dL (<150)
[2024-08-19 09:36] LABS: Microalbum/Creatinine Ratio Ur 5.4 ug/mg cr (<30)
[2024-08-20 15:08] LABS: Lutenizing Hormone 2.3 mIU/mL (1.5-9.3)
[2024-08-24 16:07] LABS: Testosterone, Total 202 ng/dL (250-1100)
== END 2024-08-19 08:13 | disposition home or self-care (01) ==
LOC: HO.XRAY 08:12
PROVIDERS: Nurse Practitioner Family; Urology; PCP Registered Nurse; Visit Provider Registered Nurse
DX: M79.641 Pain in right hand (principal); N52.9 Male erectile dysfunction, unspecified; I25.10 Atherosclerotic heart disease of native coronary artery without angina pectoris; E11.9 Type 2 diabetes mellitus without complications; R10.31 Right lower quadrant pain; R74.8 Abnormal levels of other serum enzymes; R63.4 Abnormal weight loss; Z79.4 Long term (current) use of insulin; Z91.81 History of falling
CPT/HCPCS: 36415; 73130; 80053; 80061; 82043; 82570; 83002; 83036; 83690; 84403; 86140

== ENCOUNTER → 2024-08-19 08:36 | Outpatient (BNV) | payer MEDICAID, SELFPAY | PROVIDERS: PCP Registered Nurse; Visit Provider Radiology Diagnostic Radiology | DX: R51.9 Headache, unspecified (principal); M19.041 Primary osteoarthritis, right hand; I73.9 Peripheral vascular disease, unspecified | CPT/HCPCS: 70450; 73130 ==

== ENCOUNTER 2024-08-19 13:58 | Emergency (ER) | payer MEDICAID, SELFPAY ==
--- NOTE | ~2024-08-19 | CT_ITS ---
EXAMINATION: CT HEAD WITHOUT CONTRAST CLINICAL INFORMATION: severe headache COMPARISON: March 04, 2024. TECHNIQUE: Contiguous axial imaging was performed from the skull base to vertex without intravenous administration of contrast. This CT examination was performed using dose optimization techniques as appropriate, variously including the following: *Automated exposure control *Adjustment of mA and/or kV according to patient size (this includes techniques or standardized protocols for targeted exams where dose is matched to indication/reason for exam; i.e. extremities or head) *Use of iterative reconstruction technique DLP: 622 mGy-cm FINDINGS: Small soft tissue contusion superior left parietal soft tissue scalp. Bony calvarium is intact. Old traumatic deformities in the nasal bones and left lamina papyracea. No acute intracranial hemorrhage, mass effect, midline shift, hydrocephalus or herniation. Fernández-white matter differentiation is normal. Posterior cranial fossa contents demonstrated no acute intracranial hemorrhage or mass effect. Sellar/suprasellar region demonstrated no gross masses or hemorrhage. Craniocervical junction is intact with normal position of the cerebellar tonsils. Mucosal thickening in the paranasal sinuses. Tympanic cavities and mastoid air cells are aerated. Pneumatized left petrous apex. CT/CT head/brain wo IV con IMPRESSION: No acute intracranial hemorrhage. 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
--- NOTE | 2024-08-19 14:17 | ED_ITS ---
HPI - General Adult General Chief complaint: Headache Stated complaint: Headache Time Seen by Provider: 08/19/24 17:48 Source: patient Limitations: language barrier History of Present Illness ED Provider: Swati Bender PA-C HPI narrative: 59-year-old male with a history of hypertension, hyperlipidemia, diabetes, coronary artery disease status post CABG, ischemic cardiomyopathy, chronic pain syndromes, osteoarthritis, rheumatoid arthritis, known cervical degenerative changes, presents with neck pain x1 week. Patient states he is having posterior neck pain that radiates up to posterior head and down to the right shoulder. Denies new activity, heavy lifting or repetitive activity that could have precipitated his symptoms. Denies nausea vomiting dizziness or visual changes. Patient states his headache improves we will Tylenol, but then returns. Denies paresthesia or weakness of upper extremities. Related Data Home Medications ?Medication ?Instructions ?Recorded ?Confirmed atorvastatin 80 mg tablet 80 mg PO DAILY 04/11/20 07/28/24 carvedilol 3.125 mg tablet 3.125 mg PO BID 04/11/20 07/28/24 clopidogrel 75 mg tablet 75 mg PO DAILY 04/11/20 07/28/24 ezetimibe 10 mg tablet (Zetia) 10 mg PO DAILY 04/11/20 07/28/24 gabapentin 800 mg tablet 800 mg PO BID 04/11/20 07/28/24 isosorbide mononitrate 60 mg 60 mg PO DAILY 04/11/20 07/28/24 tablet,extended release 24 hr lisinopril 2.5 mg tablet 2.5 mg PO DAILY 04/11/20 07/28/24 melatonin 5 mg capsule See Rx Instructions PO ONCE 04/11/20 07/28/24 ammonium lactate 12 % topical cream 1 appl topical BID 07/11/21 07/28/24 fluticasone propionate 50 1 - 2 spray intranasal DAILY PRN 01/17/22 07/28/24 mcg/actuation nasal congestion spray,suspension naproxen 500 mg tablet 500 mg PO moderate pain 06/13/22 07/28/24 tizanidine 4 mg tablet 4 mg PO TID 06/13/22 07/28/24 aspirin 81 mg chewable tablet 81 mg PO QAM 07/25/22 07/28/24 pregabalin 100 mg capsule 100 mg PO ONCE 07/25/22 07/28/24 Previous Rx's ?Medication ?Instructions ?Recorded magnesium citrate 300 ml PO DAILY PRN constipation 02/28/20 #296 mL blood sugar diagnostic (FreeStyle 1 strip miscellaneous QID PRN for 09/19/20 Lite Strips) diabetes mellitus #150 strips blood-glucose meter (FreeStyle 1 ea miscellaneous DIRECTED #1 09/26/20 [place] Lite kit) kit lancets 33 gauge (TRUEplus Lancets) 1 gauge miscellaneous QID for 10/12/20 diabetes mellitus #100 ea flash glucose scanning reader #1 ea 01/01/21 (FreeStyle Alfredo 2 Thorndike) flash glucose sensor (FreeStyle #2 ea 01/01/21 Alfredo 2 Sensor kit) dicyclomine 20 mg tablet 20 mg PO QID PRN abdominal pain 02/06/21 #20 tabs insulin glargine 100 unit/mL (3 30 unit (0.3 mL) subcut DAILY #15 08/06/21 mL) subcutaneous pen (Lantus mL Solostar U-100 Insulin) metformin 500 mg tablet 1,000 mg (2 x 500 mg) PO BID 30 12/12/21 days #120 tabs pen needle, diabetic 32 gauge x See Rx Instructions .Route 01/31/22/32 (Pentips Pen Needle) .COMPLEX #200 ea diclofenac sodium 1 % topical gel 2 g topical QID 30 days #100 grams 02/27/22 insulin aspart U-100 100 unit/mL See Rx Instructions subcut QID #30 03/27/22 (3 mL) subcutaneous pen (Novolog mL FlexPen U-100 Insulin aspart) hydrocortisone 2.5 % topical cream 1 appl [place] BID PRN hemorrhoids #30 06/13/22 with perineal applicator grams (Proctozone-HC) polyethylene glycol 3350 17 17 g PO DAILY 30 days #510 grams 09/16/22 gram/dose oral powder (Miralax) lidocaine 5 % topical patch 1 patch topical DAILY #30 ea 06/10/23 acetaminophen 325 mg capsule 325 mg PO Q4H PRN pain #30 caps 07/14/23 (Tylenol) lidocaine 5 % topical patch 1 patch topical DAILY PRN pain #15 07/14/23 ea furosemide 20 mg tablet (Lasix) 20 mg PO DAILY 90 days #90 tabs 12/24/23 potassium citrate 10 mEq (1,080 20 meq (2 x 10 mEq (1,080 mg)) PO 12/24/23 mg) tablet,extended release BID 90 days #360 tabs docusate sodium 100 mg capsule 200 mg (2 x 100 mg) PO BEDTIME #60 03/02/24 (Stool Softener) caps acetaminophen 500 mg tablet 500 mg PO Q8H PRN pain #30 tabs 03/04/24 (Tylenol Extra Strength) ibuprofen 600 mg tablet 600 mg PO Q6H PRN fever or pain 03/20/24 #30 tabs calcium polycarbophil 625 mg 625 mg PO TID #270 tabs 04/12/24 tablet (Fiber-Lax) nitroglycerin 0.4 mg sublingual 0.4 mg sublingual Q5M PRN angina 06/02/24 tablet pectoris #30 tabs tadalafil 10 mg tablet 10 mg PO DAILY bladder stability 07/13/24 90 days #90 tabs finasteride 5 mg tablet 5 mg PO DAILY 90 days #90 tabs 07/21/24 bisacodyl 5 mg tablet,delayed 5 mg PO ONCE 1 day #3 tabs 07/28/24 release polyethylene glycol 3350 17 238 g PO ONCE #238 grams 07/28/24 gram/dose oral powder (Miralax) doxazosin 4 mg tablet 8 mg (2 x 4 mg) PO BEDTIME 90 days 08/09/24 #180 tabs ranolazine 500 mg tablet,extended 500 mg PO BID #180 tabs 08/16/24 release,12 hr methocarbamol 750 mg tablet 1,500 mg (2 x 750 mg) PO Q8H #20 08/19/24 tabs evolocumab 140 mg/mL subcutaneous 140 mg subcut Q2W #2 mL 08/20/24 pen injector (Repamaury [place]) Allergies Allergy/AdvReac Type Severity Reaction Status Date / Time No Known Allergies Allergy Verified 08/19/24 14:19 [No Known Allergies*] Review of Systems 2 Review of Systems: Yes all other systems are reviewed and are negative Constitutional: Constitutional: Denies fatigue, Denies fever(s) and Reports headache(s) Eyes: Eyes: Denies blurry vision and Denies change in vision ENT: Reports headache(s) and Reports neck pain Cardiovascular: Cardiovascular: Denies chest pain and Denies dyspnea Respiratory: Respiratory: Denies cough and Denies dyspnea Gastrointestinal: Gastrointestinal: Denies nausea and Denies vomiting Musculoskeletal: Musculoskeletal: Denies muscle weakness, Reports neck pain, Denies numbness, Reports radiating pain into limb and Denies tingling Neurologic: Reports headache(s), Denies numbness and Denies tingling Endocrine: Endocrine: Denies fatigue [facility] Past Medical History Attestation statement: The following information was validated with the patient. Medical History (Updated 08/20/24 @ 00:01 by Chuckie Valle) History of colon polyps Ischemic cardiomyopathy Atherosclerotic cardiovascular disease History of pancreatitis Hepatitis B Hepatitis C Chronic HFrEF (heart failure with reduced ejection fraction) Cardiomyopathy Type 2 diabetes mellitus with hyperglycemia, with long-term current use of insulin Type 2 diabetes mellitus with diabetic polyneuropathy Hyperlipidemia LDL goal <70 Essential hypertension Myocardial infarction Surgical History Hx of colonoscopy History of appendectomy Hx of heart artery stent H/O coronary artery bypass surgery H/O cardiac catheterization Family History Family History Mother Diabetes Social History Social History Household Members: Spouse Alcohol intake: never Patient Tobacco Use Status: Never used Tobacco Advance Directives: No Advance Directives Information Provided: No Current occupational status: unemployed Physical Exam ED Vital Signs: Vital Signs - 24 hr 08/19/24 17:49 08/19/24 19:00 Temperature 97.2 F 97.2 F Pulse Rate 84 84 Respiratory Rate 16 16 Blood Pressure 134/78 134/78 Pulse Oximetry 97 97 Oxygen Delivery Method Room Air Room Air BMI result Body Mass Index 26.0 Const Other: Alert well-appearing Orientation/consciousness: patient oriented x3 Neck Other: Pain also elicited with range of motion of the neck Neck: Yes full ROM Resp Effort & Inspection: normal respiratory effort Cardio Other: Normal peripheral perfusion Skin Other: Warm dry no rash Neuro General: patient oriented x3, gait normal, no focal motor deficits and CN's II- XI intact bilaterally Extrem Other: Strength 5/5 bilateral upper extremities with resistance Psych Other: Cooperative Course Course Course Narrative: This is a rapid medical exam performed by Nahid Trent NP: Additional HPI, ROS, PE not included below will be deferred to primary provider. 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 He reports pain has increased today prompting him to seek care. He reports he is experiencing nausea today. He reports a fall less than 1 year ago where he had a hematoma and abnormal MRI. PE: awake, alert, steady gait Plan: labs, head CT Medications Administered Discontinued Medications Generic Name Dose Route Start Last Admin Trade Name Claudio PRN Reason Stop Dose Admin Acetaminophen 975 mg 08/19/24 17:50 08/19/24 18:00 Acetaminophen 325 Mg Tablet PO 08/19/24 17:51 975 mg ONCE ONE Administration Ibuprofen 600 mg 08/19/24 17:53 08/19/24 18:05 Ibuprofen 600 Mg Tablet PO 08/19/24 17:54 600 mg ONCE ONE Administration Methocarbamol 1,500 mg 08/19/24 18:18 08/19/24 18:45 Methocarbamol 750 Mg Tablet PO 08/19/24 18:19 1,500 mg ONCE ONE Administration Medical Decision Making Medical Decision Making MDM Narrative: 59-year-old male with a history of hypertension, hyperlipidemia, diabetes, coronary artery disease status post CABG, ischemic cardiomyopathy, chronic pain syndromes, osteoarthritis, rheumatoid arthritis, known cervical degenerative changes, presents with neck pain x1 week. Patient states he is having posterior neck pain that radiates up to posterior head and down to the right shoulder. Denies new activity, heavy lifting or repetitive activity that could have precipitated his symptoms. Denies nausea vomiting dizziness or visual changes. Patient states his headache improves we will Tylenol, but then returns. Denies paresthesia or weakness of upper extremities. Problem: Vascular disease, chronic pain History: Per patient I have considered the following differential diagnoses: Intracranial hemorrhage, VAD, tension headache, cervical radiculopathy, Plan: The patient has known degenerative changes of the cervical spine, he has chronic pain. He is having radicular symptoms. We will treat accordingly. In regard to the headache, this is likely a tension headache associated with the degenerative changes noted in his neck, his most recent CT scan of the neck was February of 2024. This is not intracranial hemorrhage, the patient is not altered he is neurologically intact, his headache has been waxing and waning, there was no trauma. Screening labs and CT scan of the brain were ordered from triage. Thought about VAD, however there was no preceding heavy lifting mechanism, and again the patient is neurologically intact. I have independently reviewed the following tests: Labs: No leukocytosis, not anemic, no electrolyte abnormality CT brain: CT/CT head/brain wo IV con IMPRESSION: No acute intracranial hemorrhage. Old traumatic deformities, nasal bones and left lamina papyracea Lab Data 08/19/24 14:47 08/19/24 14:47 Labs: Lab Results 08/19/24 Range/Units 14:47 WBC 5.9 (4.8-10.8) X10*3/uL RBC 4.51 L (4.60-5.80) X10*6/uL Hgb 14.1 (14.0-18.0) g/dl Hct 40.1 L (42.0-52.0) % MCV 88.9 (80.0-98.0) fL MCH 31.3 (27.0-33.0) pg MCHC 35.2 (31.0-36.0) g/dl RDW 13.0 (11.0-16.0) % Plt Count 171 (160-400) X10*3/uL MPV 10.7 (9.4-12.4) fL Immature Gran % (Auto) 0.3 (0.0-0.4) % Neut % (Auto) 64.6 (45-73) % Lymph % (Auto) 24.0 (20-40) % [place] % (Auto) 7.0 (2-11) % Eos % (Auto) 3.4 (0-4) % Baso % (Auto) 0.7 (0-2) % Lymph # (Auto) 1.4 (1.2-4.9) X10*3/uL [place] # (Auto) 0.4 (0.1-1.2) X10*3/uL Eos # (Auto) 0.2 (0.0-0.4) X10*3/uL Baso # (Auto) 0.0 (0.0-0.2) X10*3/uL Abs Immat Gran (auto) 0.02 (0.00-0.03) X10*3/uL Absolute Neuts (auto) 3.8 (2.0-8.3) x10*3/uL Absolute Nucleated RBC 0.000 (0.0-0.012) X10*3/uL Nucleated RBC % (auto) 0.0 (0.0-0.2) /100WBC Sodium 139 (135-145) mmol/L Potassium 4.0 (3.3-5.1) mmol/L Chloride 108 (96-108) mmol/L Carbon Dioxide 22 (22-29) mmol/L Anion Gap 13 (12-20) BUN 28 H (9-16) mg/dL Creatinine 1.00 (0.5-1.4) mg/dL Estim Creat Clear Calc 76.9 Estimated GFR > 60 Random Glucose 197 H (60-115) mg/dL Calcium 8.6 (8.4-10.2) mg/dL Total Bilirubin 1.5 H (0.0-1.0) mg/dL AST 25 (5-37) U/L ALT 19 (0-40) U/L Alkaline Phosphatase 123 H (39-117) U/L Troponin I High Sens 3.4 (<3.5-35.0) ng/L Total Protein 6.3 L (6.5-8.0) g/dL Albumin 3.9 (3.5-5.0) g/dL Discharge Plan Discharge Clinical Impression: Headache, Cervical radiculopathy Patient Disposition: Home, Self-Care Instructions: Tension Headache (ED), Cervical Radiculopathy (ED) Additional Instructions: All of your screening labs including a cardiac enzymes were normal. There were no concerning changes on the EKG. There is no acute process on the CT scan of your brain. I do believe your symptoms are secondary to a tension headache, caused by the arthritic changes in your cervical spine. See home care instructions. You can use [id number] ibuprofen 600 mg taken every 6 hours with food, alternated with [id number] Tylenol 1000 mg taken every 8 hours. Use the muscle relaxant, the methocarbamol as needed for further pain. Do not drive or operate machinery while taking this medication. Follow up with your primary care provider in 1-2 weeks. Prescriptions: New methocarbamol 750 mg tablet 1,500 mg PO Q8H Qty: 20 0RF No Action blood sugar diagnostic [FreeStyle Lite Strips] Strip 1 strip miscellaneous QID PRN (Reason: for diabetes mellitus) Qty: 150 11RF blood-glucose meter [FreeStyle [place] Lite] Kit 1 ea miscellaneous DIRECTED Qty: 1 0RF lancets [TRUEplus Lancets] 33 gauge misc 1 gauge miscellaneous QID Qty: 100 11RF metformin 500 mg tablet 1,000 mg PO BID 30 Days Qty: 120 4RF pen needle, diabetic [Pentips Pen Needle] 32 gauge x 5/32 needle See Rx Instructions .ROUTE .COMPLEX Qty: 200 2RF Dose Instruction: USE SIX TIMES DAILY DIRECTED Rx Instructions: USE SIX TIMES DAILY DIRECTED insulin aspart U-100 [Novolog FlexPen U-100 Insulin] 100 unit/mL (3 mL) insulin pen See Rx Instructions subcut QID Qty: 30 0RF Rx Instructions: 6-8 units with meals, 2 units with snack subcut 4 times a day; potassium citrate 10 mEq (1,080 mg) tablet extended release 20 meq PO BID 90 Days Qty: 360 1RF furosemide [Lasix] 20 mg tablet 20 mg PO DAILY 90 Days Qty: 90 3RF docusate sodium [Stool Softener] 100 mg capsule 200 mg PO BEDTIME Qty: 60 5RF calcium polycarbophil [Fiber-Lax] 625 mg tablet 625 mg PO TID Qty: 270 1RF nitroglycerin 0.4 mg tablet, sublingual 0.4 mg sublingual Q5M PRN (Reason: angina pectoris) Qty: 30 0RF Rx Instructions: do not exceed 3 doses per episode finasteride 5 mg tablet 5 mg PO DAILY 90 Days Qty: 90 1RF doxazosin 4 mg tablet 8 mg PO BEDTIME 90 Days Qty: 180 1RF ranolazine 500 mg tablet extended release 12 hr 500 mg PO BID Qty: 180 3RF Repatha SureClick 140 mg/mL pen injector 140 mg subcut Q2W Qty: 2 5RF magnesium citrate Solution 300 ml PO DAILY PRN (Reason: constipation) Qty: 296 0RF dicyclomine 20 mg tablet 20 mg PO QID PRN (Reason: abdominal pain) Qty: 20 0RF lidocaine 5 % adhesive patch,medicated 1 patch topical DAILY Qty: 30 0RF Rx Instructions: leave on most painful area for up to 12 hrs lidocaine 5 % adhesive patch,medicated 1 patch topical DAILY PRN (Reason: pain) Qty: 15 0RF Rx Instructions: leave on most painful area for up to 12 hrs acetaminophen [Tylenol] 325 mg capsule 325 mg PO Q4H PRN (Reason: pain) Qty: 30 0RF acetaminophen [Tylenol Extra Strength] 500 mg tablet 500 mg PO Q8H PRN (Reason: pain) Qty: 30 0RF ibuprofen 600 mg tablet 600 mg PO Q6H PRN (Reason: fever or pain) Qty: 30 0RF clopidogrel 75 mg tablet 75 mg PO DAILY carvedilol 3.125 mg tablet 3.125 mg PO BID Rx Instructions: must administer with a meal/food lisinopril 2.5 mg tablet 2.5 mg PO DAILY isosorbide mononitrate 60 mg tablet extended release 24 hr 60 mg PO DAILY atorvastatin 80 mg tablet 80 mg PO DAILY melatonin 5 mg capsule See Rx Instructions PO ONCE Rx Instructions: 5 mg (2 tab) PO once; gabapentin 800 mg tablet 800 mg PO BID ezetimibe [Zetia] 10 mg tablet 10 mg PO DAILY (DME) FreeStyle Alfredo 2 [place]dike Misc See Rx Instructions .ROUTE .MEDSUPPLY Qty: 1 0RF Rx Instructions: As directed (DME) FreeStyle Alfredo 2 Sensor Kit See Rx Instructions .ROUTE .MEDSUPPLY Qty: 2 11RF Rx Instructions: As directed every 2 weeks ammonium lactate 12 % cream 1 appl topical BID Lantus Solostar U-100 Insulin 100 unit/mL (3 mL) insulin pen 30 unit subcut DAILY Qty: 15 4RF fluticasone propionate 50 mcg/actuation spray,suspension 1 - 2 spray intranasal DAILY PRN (Reason: congestion) aspirin 81 mg tablet,chewable 81 mg PO QAM diclofenac sodium 1 % gel 2 g topical QID 30 Days Qty: 100 8RF Rx Instructions: apply to hand; for hand includes palm/fingers/back of hand pregabalin 100 mg capsule 100 mg PO ONCE naproxen 500 mg tablet 500 mg PO tizanidine 4 mg tablet 4 mg PO TID hydrocortisone [Proctozone-HC] 2.5 % cream with perineal applicator 1 appl NH BID PRN (Reason: hemorrhoids) Qty: 30 3RF Rx Instructions: apply NH BID prn polyethylene glycol 3350 [Miralax] 17 gram/dose powder 17 g PO DAILY 30 Days Qty: 510 6RF tadalafil 10 mg tablet 10 mg PO DAILY 90 Days Qty: 90 1RF polyethylene glycol 3350 [Miralax] 17 gram/dose powder 238 g PO ONCE Qty: 238 0RF Rx Instructions: per colonoscopy prep instructions bisacodyl 5 mg tablet,delayed release (DR/EC) 5 mg PO ONCE 1 Days Qty: 3 0RF Rx Instructions: per colonoscopy instructions Interventions: ED Discharge Assessment Last Done: 08/19/24 19:00 Discharge Date/Time: 08/19/24 19:00 Print Language: Polish
[2024-08-19 14:18] VITALS: BP 99/62; PULSE 83; RESP 18; TEMP 36.1; O2SAT 98; BMI 26.0
--- NOTE | 2024-08-19 14:22 | ECG_ITS ---
Test Reason : chest pain Blood Pressure : */* mmHG Vent. Rate : 78 BPM Atrial Rate : 78 BPM P-R Int : 150 ms QRS Dur : 146 ms QT Int : 432 ms P-R-T Axes : 52 258 39 degrees QTcB Int : 492 ms Normal sinus rhythm Right bundle branch block Inferior infarct (cited on or before 13-Apr-2018) Abnormal ECG When compared with ECG of 12-Feb-2024 18:21, No significant change was found Referred By: Celi Trent Electronically Signed By: STEPHANIE OLIVO
[2024-08-19 14:56] LABS: MANUAL DIFF FLAG NO
[2024-08-19 14:58] LABS: Basophils Percent Auto 0.7 % (0-2); Eosinophils Absolute Auto 0.2 X10*3/uL (0.0-0.4); Eosinophils Percent Auto 3.4 % (0-4); Hematocrit 40.1 % (42.0-52.0); Hemoglobin 14.1 g/dl (14.0-18.0); Imm Gran Abs Auto 0.02 X10*3/uL (0.00-0.03); Imm Gran Pct Auto 0.3 % (0.0-0.4); Lymphocytes Absolute Auto 1.4 X10*3/uL (1.2-4.9); Mean Corpuscular HGB Conc 35.2 g/dl (31.0-36.0); Mean Corpuscular Hemoglobin 31.3 pg (27.0-33.0); Mean Corpuscular Volume 88.9 fL (80.0-98.0); Mean Platelet Volume 10.7 fL (9.4-12.4); Monocytes Absolute Auto 0.4 X10*3/uL (0.1-1.2); Neutrophils Absolute Auto 3.8 x10*3/uL (2.0-8.3); Neutrophils Percent Auto 64.6 % (45-73); Platelet Count 171 X10*3/uL (160-400); Red Blood Count 4.51 X10*6/uL (4.60-5.80); White Blood Count 5.9 X10*3/uL (4.8-10.8)
[2024-08-19 15:12] LABS: Alanine Aminotransferase 19 U/L (0-40); Albumin Level 3.9 g/dL (3.5-5.0); Alkaline Phosphatase 123 U/L (39-117); Anion Gap 13 (12-20); Aspartate Amino Transferase 25 U/L (5-37); Bilirubin Total 1.5 mg/dL (0.0-1.0); Blood Urea Nitrogen 28 mg/dL (9-16); Calcium 8.6 mg/dL (8.4-10.2); Carbon Dioxide 22 mmol/L (22-29); Chloride 108 mmol/L (96-108); Creatinine Clr Calc Pharmacy 76.9; Estimated Glomerular Filt Rate > 60; Glucose Random 197 mg/dL (60-115); Sodium 139 mmol/L (135-145); Total Protein 6.3 g/dL (6.5-8.0)
[2024-08-19 15:18] LABS: Troponin-I High Sensitivity 3.4 ng/L (<3.5-35.0)
[2024-08-19 17:49] VITALS: BP 134/78; PULSE 84; RESP 16; TEMP 36.2; O2SAT 97
--- OUTSIDE RECORDS SUMMARY | 2024-08-19 17:59 | XMS_ITS | Encounter Summary ---
Author Organization [employer] Address [address] [place] [address] Care Team Providers Care Caustic Purification Operator Name Role Phone Waleska Goldberg Primary Care Provider [phone] Reason for Visit * Reason Onset Date Comments Hospital Follow-up 05/04/2024 Encounter Details Date Type Department Care Team ([facility] st Contact Info) Description 05/04/2024 Telephone [facility] [address] [place] [address] Waleska Goldberg FNP [address] [place], [place] [phone] Hospital Follow-up Social History Tobacco Use Types [...] from pt requesting a HDF appt. Hospital: [facility] Date of admission: 04/29/2024 Discharge date: 05/01/2024 Diagnosed: Kidney stones , pt satated that at ER they placed a godfrey that has to be remove *Send message to [place] Clinical Care Coordinators documented in this encounter Plan of Treatment Upcoming Encounters Date Type Department Care Team ([facility] st Contact Info) Description 10/04/2024 11:00 AM EDT Office Visit [facility] [address] [place] [address] Waleska Goldberg FNP [address] [place] [address] 10/22/2024 11:30 AM EDT Office Visit [facility] [address] [place] [address] Waleska Goldberg FNP [address] [place] [address] documented as of this encounter Visit Diagnoses Not on filedocumented in this encounter Additional Health Concerns Assessment Noted Time PHQ-9 Depression Total Score: 6 07/30/19 24 10:53 AM EDT documented as of this encounter Care Teams Caustic Purification Operator Relationship Specialty Start Date End Date Waleska Goldberg FNP [address] [place] [address] PCP - General Family Medicine 12/12/21 Gloria Flores Residential AdvisorSteward/Stewardess Smoke Room 03/13/23 documented as of this encounter
--- OUTSIDE RECORDS SUMMARY | 2024-08-19 17:59 | XMS_ITS | Encounter Summary ---
Author Organization [employer] Address [address] [place] [address] Care Team Providers Care Information Systems Professor Name Role Phone Waleska Goldberg Primary Care Provider [phone] Reason for Visit * Reason Comments Med Refill Encounter Details Date Type Department Care Team (Late st Contact Info) Description 09/28/2023 Refill [facility] [address] [place] [address] Waleska Goldberg FNP [address] [place], [place] [phone] Insomnia, unspecified type Social History Tobacco Use [...] Care Team (Late st Contact Info) Description 10/04/2024 11:00 AM EDT Office Visit [facility] [address] [place] [address] Waleska Goldberg FNP [address] [place] [address] 10/22/2024 11:30 AM EDT Office Visit [facility] [address] [place] [address] Waleska Goldberg FNP [address] [place] [address] documented as of this encounter Visit Diagnoses Diagnosis Insomnia, unspecified type documented in this encounter Additional Health Concerns Assessment Noted Time PHQ-9 Depression Total Score: 6 07/30/19 24 10:53 AM EDT documented as of this encounter Care Teams Information Systems Professor Relationship Specialty Start Date End Date Waleska Goldberg FNP [address] [place] [address] PCP - General Family Medicine 12/12/21 Gloria Flores Acoustic Sensor OperatorOvercaster 03/13/23 documented as of this encounter
--- OUTSIDE RECORDS SUMMARY | 2024-08-19 17:59 | XMS_ITS | Encounter Summary ---
Author Organization [employer] Address [address] [place] [address] Care Team Providers Care Conference And Event Organiser Name Role Phone Waleska Goldberg Primary Care Provider [phone] Reason for Visit * Reason Onset Date Comments Med Refill 06/01/2024 Encounter Details Date Type Department Care Team (Late st Contact Info) Description 06/01/2024 Refill [facility] [address] [place] [address] Waleska Goldberg FNP [address] [place] [address] Fracture of left patella with routine healing [...] up for visit. [facility] you! * Telephone Encounter - Dee Nuñez - 06/01/2024 3:53 PM EST TC from pt requesting medication refill. Medications needing refill : oxyCODONE-acetaminophen (Percocet) 10-325 MG tablet To be sent to: [facility]/pharmacy #[id number] documented in this encounter Plan of Treatment Upcoming Encounters Date Type Department Care Team ([facility] st Contact Info) Description 10/04/2024 11:00 AM EDT Office Visit [facility] [address] [place] [address] Waleska Goldberg FNP [address] [place], [place] [phone] 10/22/2024 11:30 AM EDT Office Visit [facility] [address] [place] [address] Waleska Goldberg FNP [address] [place] [address] documented as of this encounter Visit Diagnoses Diagnosis Fracture of left patella with routine healing documented in this encounter Additional Health Concerns Assessment Noted Time PHQ-9 Depression Total Score: 6 07/30/19 24 10:53 AM EDT documented as of this encounter Care Teams Conference And Event Organiser Relationship Specialty Start Date End Date Waleska Goldberg FNP [address] [place] [address] PCP - General Family Medicine 12/12/21 Gloria Flores CognosFiler Finish 03/13/23 documented as of this encounter
--- OUTSIDE RECORDS SUMMARY | 2024-08-19 17:59 | XMS_ITS | Encounter Summary ---
Author Organization [employer] Address [address] [facility] 7t [place] [address] Care Team Providers Care Maintainer Operator Name Role Phone Waleska Goldberg Primary Care Provider Encounter Details Date Type Department Care Team (Latest Contact Info) Description 03/24/2019 Abstract [facility] CONVERSIONS Dental, Provider, DDS Social History Tobacco [...] Care Team ( st Contact Info) Description 10/04/2024 11:00 AM EDT Office Visit [facility] MED & PEDS [address] [place] [address] Waleska Goldberg FNP [address] [place] [address] 10/22/2024 11:30 AM EDT Office Visit [facility] MED & PEDS [address] [place] [address] Waleska Goldberg FNP [address] [place] [address] documented as of this encounter Visit Diagnoses Not on filedocumented in this encounter Care Teams Maintainer Operator Relationship Specialty Start Date End Date Walesak Goldberg FNP [address] [place] [address] PCP - General Family Medicine 12/12/21 Glorai Flores Dry House TenderVice President Of Brand Management 03/13/23 documented as of this encounter
--- OUTSIDE RECORDS SUMMARY | 2024-08-19 17:59 | XMS_ITS | Encounter Summary ---
Author Organization [employer] Address [address] [facility] [address] 7[address] [place] [address] Care Team Providers Care Side Guider Name Role Phone Waleska Goldberg Primary Care Provider [phone] Reason for Visit * Reason Comments Med Refill Encounter Details Date Type Department Care Team (Late st Contact Info) Description 06/07/2024 Refill [facility] MED & PEDS [address] [place], [place] [id number] Waleska Goldberg FNP [address] [place] [address] Fracture of left patella with routine healing [...] pt regarding message below via BLS ID# [id number]. Pt stated he has an appt scheduled [...] refill of Percocet. Called via BLS ID# [id number]. Also called pt on 06/01/24 advisingof the message from PCP on 06/01/24: Please let him know that short course of opioid was sent in with plan for no refills. He should hopefully be feeling better, but if not, will need to follow up for visit. Walk in [place] extended open tonight PRN. Thank you! Pt then verbalized understanding. Pt called again for a refill today. Stated he does not want to goto walk in [place], asked for a f/u appt with PCP which was scheduled for 07/16/24. Pt verbalized understanding. documented in this encounter Plan of Treatment Upcoming Encounters Date Type Department Care Team (Late st Contact Info) Description 10/04/2024 11:00 AM EDT Office Visit [facility] MED & PEDS [address] [place] [address] Waleska Goldberg FNP [address] [place] [address] 10/22/2024 11:30 AM EDT Office Visit [facility] MED & PEDS [address] [place] [address] Waleska Goldberg FNP [address] [place] [address] documented as of this encounter Visit Diagnoses Diagnosis Fracture of left patella with routine healing documented in this encounter Additional Health Concerns Assessment Noted Time PHQ-9 Depression Total Score: 6 07/30/19 24 10:53 AM EDT documented as of this encounter Care Teams Side Guider Relationship Specialty Start Date End Date Waleska Goldberg FNP [address] [place] [address] PCP - General Family Medicine 12/12/21 Gloria Flores Plant DirectorCustom Seamstress 03/13/23 documented as of this encounter
--- OUTSIDE RECORDS SUMMARY | 2024-08-19 17:59 | XMS_ITS | Encounter Summary ---
Author Organization [employer] Address [address] [facility] 7t [place] [address] Care Team Providers Care Rn Neurology Name Role Phone Waleska Goldberg Primary Care Provider [phone] Reason for Visit * Reason Onset Date Comments Referral 06/30/2024 Encounter Details Date Type Department Care Team ([facility] st Contact Info) Description 06/30/2024 Telephone [facility] MED & PEDS [address] [place], [place] [phone] Waleska Goldberg FNP [address] [place] [address] Referral Social History Tobacco Use Types Packs/Day [...] PM EDT Insurance authorization for 20 visits #[id number] faxed to Jan Shen @ [phone]. * Telephone Encounter - Yvonne Palomino - 06/30/2024 12:15 PM EDT Tc from pt calling to inform was told to contact PCP to request more visit for physical therapy. Symptoms and location is still the same. Any further questions please contact pt to clarify. documented in this encounter Plan of Treatment Upcoming Encounters Date Type Department Care Team ([facility] st Contact Info) Description 10/04/2024 11:00 AM EDT Office Visit [facility] MED & PEDS [address] [place] [address] Waleska Goldberg FNP [address] [place] [address] 10/22/2024 11:30 AM EDT Office Visit [facility] MED & PEDS [address] [place] [address] Waleska Goldberg FNP [address] [place] [address] documented as of this encounter Visit Diagnoses Not on filedocumented in this encounter Additional Health Concerns Assessment Noted Time PHQ-9 Depression Total Score: 6 07/30/19 24 10:53 AM EDT documented as of this encounter Care Teams Rn Neurology Relationship Specialty Start Date End Date Waleska Goldberg FNP [address] [place] [address] PCP - General Family Medicine 12/12/21 Gloria Flores Substitute Bus DriverChildren'S Program Coordinator 03/13/23 documented as of this encounter
--- OUTSIDE RECORDS SUMMARY | 2024-08-19 17:59 | XMS_ITS ---
Author Organization [employer] Address [address] [facility] 7t [place] [address] Care Team Providers Care Economics Department Chair Name Role Phone Waleska Goldberg Primary Care Provider [phone] CH[facility] Complex Status:Enrolled (Active) Start date:07/28/2024 Enrollment date:08/09/2024 Enrollment reason:ADT Feed Overview Adt- [facility] ED 07/24/24. Case Team Name Relationship Phone Ben Wilkinson (Responsible Staff) [phone] Continued Care and Services Coordination
--- OUTSIDE RECORDS SUMMARY | 2024-08-19 17:59 | XMS_ITS | Encounter Summary ---
Author Organization [employer] Address [address] [facility] [address] [place] [address] Care Team Providers Care Business Mail Entry Clerk Name Role Phone Waleska Goldberg Primary Care Provider [phone] Reason for Visit * Reason Onset Date Comments Med Refill 05/06/2024 Encounter Details Date Type Department Care Team ([facility] st Contact Info) Description 05/06/2024 Telephone [facility] MEDICINE [address] [place] [address] Waleska Goldberg FNP [address] [place] [address] Med Refill Social History Tobacco Use Types [...] 10-325 MG tablet To be sent to: [facility] [place] [place] - [address] [facility] documented in this encounter Plan of Treatment Upcoming Encounters Date Type Department Care Team (Late st Contact Info) Description 10/04/2024 11:00 AM EDT Office Visit [facility] MED & PEDS [address] [place] [address] Waleska Goldberg FNP [address] [place] [address] 10/22/2024 11:30 AM EDT Office Visit [facility] MED & PEDS [address] [place] [address] Waleska Goldberg FNP [address] [place] [address] documented as of this encounter Visit Diagnoses Not on filedocumented in this encounter Additional Health Concerns Assessment Noted Time PHQ-9 Depression Total Score: 6 07/30/19 24 10:53 AM EDT documented as of this encounter Care Teams Business Mail Entry Clerk Relationship Specialty Start Date End Date Waleska Goldberg FNP [address] [place] [address] PCP - General Family Medicine 12/12/21 Gloria Flores Help Desk AssistantYouth Services Specialist 03/13/23 documented as of this encounter
--- OUTSIDE RECORDS SUMMARY | 2024-08-19 17:59 | XMS_ITS | Encounter Summary ---
Author Organization [employer] Address [address] [facility] [address] 7[address] [place] [address] Care Team Providers Care Procurement Engineer Name Role Phone Waleska Goldberg Primary Care Provider [phone] Reason for Visit * Reason Onset Date Comments Referral 05/28/2022 Encounter Details Date Type Department Care Team (Late st Contact Info) Description 05/28/2022 Telephone [facility] MEDICINE [address] [place] [address] Waleska Goldberg FNP [address] [place] [address] Referral Social History Tobacco Use Types Packs/Day [...] 11:00 AM EDT Office Visit [facility] MED & PEDS [address] [place] [address] Waleska Goldberg FNP [address] [place] [address] 10/22/2024 11:30 AM EDT Office Visit [facility] MED & PEDS [address] [place] [address] Waleska Goldberg FNP [address] [place] [address] documented as of this encounter Visit Diagnoses Not on filedocumented in this encounter Care Teams Procurement Engineer Relationship Specialty Start Date End Date Waleska Goldberg FNP [address] [place] [address] PCP - General Family Medicine 12/12/21 Gloria Flores Program HostSenior Marketing Specialist 03/13/23 documented as of this encounter
--- OUTSIDE RECORDS SUMMARY | 2024-08-19 17:59 | XMS_ITS | Encounter Summary ---
Author Organization [employer] Address [address] [facility] 7t [place] [address] Care Team Providers Care Aerospace Technician Name Role Phone Waleska Goldberg Primary Care Provider [phone] Encounter Details Date Type Department Care Team (Latest Contact Info) Description 07/10/2020 Abstract [facility] CONVERSIONS Dental, Provider, DDS Social History [...] Description 10/04/2024 11:00 AM EDT Office Visit [facility] MED & PEDS [address] [place] [address] Waleska Goldberg FNP [address] [place] [address] 10/22/2024 11:30 AM EDT Office Visit [facility] MED & PEDS [address] [place] [address] Waleska Goldberg FNP [address] [place] [address] documented as of this encounter Visit Diagnoses Not on filedocumented in this encounter Care Teams Aerospace Technician Relationship Specialty Start Date End Date Waleska Goldberg FNP [address] [place] [address] [place] [address] PCP - General Family Medicine 12/12/21 Gloria Flores Penetration TesterFreight Sales Broker 03/13/23 documented as of this encounter
[2024-08-19] MEDS: Acetaminophen 325 MG TABLET 975 MG PO (18:00)
--- OUTSIDE RECORDS SUMMARY | 2024-08-19 18:00 | XMS_ITS | Encounter Summary ---
Author Organization [employer] Address [address] [facility] [address] [place] [address] Care Team Providers Care Asphalt Paving Foreman Name Role Phone Waleska Goldberg CRIMINAL RESEARCHER Primary Care Provider [phone] Encounter Details Date Type Department Care Team ([facility] st Contact Info) Description 04/16/2024 Orders Only [facility] MED & PEDS [address] [place] [address] ProviderAleisha MD Social History Tobacco Use Types Packs/Day Years [...] is your housing situation today? I have cierrapaige [place]ston 04/16/[address] you [...] Description 10/04/2024 11:00 AM EDT Office Visit [facility] MED & PEDS [address] [place] [address] Waleska Goldberg FNP [address] [place] [address] 10/22/2024 11:30 AM EDT Office Visit [facility] MED & PEDS [address] [place] [address] Waleska Goldberg FNP [address] [place] [address] documented as of this encounter Procedures Procedure Name Priority Date/Time Associated Diagnosis Comments COLONOSCOPY Routine 05/30/2022 9:04 PM EST documented in this encounter Results * Hm Colonoscopy (05/30/2022 9:04 PM EST) Historical Provider HEALTH MAINTENANCE Final Result documented in this encounter Visit Diagnoses Not on filedocumented in this encounter Additional Health Concerns Assessment Noted Time PHQ-9 Depression Total Score: 6 07/30/19 24 10:53 AM EDT documented as of this encounter Care Teams Asphalt Paving Foreman Relationship Specialty Start Date End Date Waleska Goldberg FNP [address] [place] [address] PCP - General Family Medicine 12/12/21 Gloria Flores Banquet StewardSupervisor Instrument Maintenance 03/13/23 documented as of this encounter
--- OUTSIDE RECORDS SUMMARY | 2024-08-19 18:00 | XMS_ITS ---
Author Organization [employer] Address [address] [facility] 7t [place] [address] Care Team Providers Care Interactive Media Designer Name Role Phone AnaarceliaWaleska Primary Care Provider [phone] CM Complex Status:Enrolled (Active) Start date:07/26/2024 Enrollment date:08/10/2024 Enrollment reason:ADT Feed Overview Adt- [facility] ED 07/24/24. Outreach in progress on laura. Case Team Name Relationship Phone Brittanie Gonzalez RN Registered Nurse(Responsible S taff) [phone] Continued Care and Services Coordination
--- OUTSIDE RECORDS SUMMARY | 2024-08-19 18:00 | XMS_ITS | Clinical Summary ---
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 Name Role Phone Waleska Goldberg AMERICO Primary Care Provider [phone] Allergies No known active allergies Medications UltiGuard [...] by mouth daily Active Continuous Blood Gluc Pipe Fitter Apprentice (Existence Before EssenceStyle Alfredo 2 Climax) deviceIndication s:Type 2 diabetes mellitus without complication, with long-term current use of insulin (CMS/HCC) Use to check blood glucose levels throughout the day 1 each 023 Active Continuous Blood Gluc Sensor (FreeStyle Alfredo 2 Sensor) miscIndications: Type 2 diabetes mellitus without complication, with long-term current use of insulin ([facility]) Use to check blood sugar levels throughout the day 2 each Active Blood Glucose Monitoring Suppl (FreeStyle Milan Lite) w/Device kitIndications:T ype 2 diabetes mellitus without complication, with long-term current use of insulin ([facility]) Use to test blood sugar 1-2 times daily 1 kit 024 Active baclofen (Lioresal) 10 MG tablet TAKE 1 TABLET BY MOUTH THREE TIMES DAILY IN THE MORNING, AT NOON, AND AT BEDTIME NEEDED FOR MUSCLE SPASMS 60 tablet 1 Active Diclofenac Sodium 1 % gelIndications:A rthralgia of hands, bilateral APPLY 2 GRAMS TOPICALLY TO HANDS 2-3 TIMES PER DAY NEEDED FOR PAIN 100 g 2 024 Active aspirin (Aspirin Low Dose) 81 MG chewable tabletIndication s:Coronary arteriosclerosis ,Chronic systolic heart failure ([facility]/HCC) TAKE 1 TABLET BY MOUTH EVERY MORNING 90 tablet 3 024 Active isosorbide mononitrate ER (Imdur) 60 MG 24 hr tabletIndication s:Coronary arteriosclerosis ,Chronic systolic heart failure ([facility]) TAKE 1 TABLET BY MOUTH EVERY MORNING 90 tablet 3 024 Active lisinopril 2.5 MG tabletIndication s:Coronary arteriosclerosis ,Chronic systolic heart failure ([facility]/HCC) TAKE 1 TABLET BY MOUTH AT BEDTIME [...] ype 2 diabetes mellitus treated with insulin ([facility]) INJECT 30 UNITS SUBCUTANEOUSLY ONCE DAILY 15 mL 4 024 Active insulin aspart (NovoLOG FLEXPEN) 100 UNIT/ML penIndications:T ype 2 diabetes mellitus without complication, with long-term current use of insulin ([facility]) INJECT 6 UNITS SUBCUTANEOUSLY 3 [...] complication, with long-term current use of insulin ([facility]) TAKE 1 TABLET BY MOUTH TWICE DAILY IN THE MORNING AND IN THE EVENING WITH MEALS 180 tablet 3 Active TRUEplus Lancets 33G miscIndications: Type 2 diabetes mellitus without complication, with long-term current use of insulin ([facility]) USE TO TEST BLOOD SUGAR [...] complication, with long-term current use of insulin ([facility]) TEST BLOOD SUGAR FOUR TIMES DAILY AND NEEDED FOR BLOOD SUGAR <70 MG/dL 100 strip 11 Active finasteride (Proscar) 5 MG tablet Take 1 tablet by mouth Once per day. Do not crush, chew, or split. Active empagliflozin (Jardiance) 10 MGIndications:Ty pe 2 diabetes mellitus without complication, with long-term current use of insulin ([facility]) Take 1 tablet (10 mg) by mouth Once per day. 90 tablet 1 025 2025 Active acetaminophen (Tylenol 8 Hour) 650 MG [...] if needed for severe pain. 025 2024 oxyCODONE-acetam inophen (Percocet) 10-325 MG tabletIndication s:Lumbar back pain Take 1 tablet by mouth if needed each day for severe pain for up to 7 days. 7 tablet 025 2024 Active Problems Patient Care Coordination No te Formatting of this note migh t be different from the original. C3/CM Yesenia Page RN Problem Noted Date Diagnosed Date Fracture of left patella with routine healing Overview (05/23/2024): Following with [facility] Ortho - Dr. Monahan Assessment & Plan (08/17/2024 2:51 PM EDT): - Completed physical therapy - Referral to [facility] Ortho placed for further eval - Pain control: NSAIDs contraindicated w/ cardiac hx, trial of APAP not effective/sufficient, agreed to send in 7 tablets of Percocet 10/325mg Qdaily PRN severe pain. Previous Narcan rx. Reviewed sparing use and med use and SE Assessment & Plan (05/23/2024 1:51 PM EST): [...] Previous trials: prednisone, avoid NSAIDs with hx [place], APAP not effective. - Plan: short course [...] knee 08/30/2023 Overview (04/16/2024): - Followed by [facility] Ortho - Plan for trial knee sleeve and activity modification. If no improvement with conservative measures, may consider injections - Consult Jan 2024: received steroid injection. Not good surgical candidate. Assessment & Plan (01/11/2024 5:18 PM EDT): Currently described as one of most painful sites of LLE. No red flag symptoms on exam today. Called and scheduled for appt with [facility] Ortho in 2 weeks. ED precautions sooner [...] to Neurosurgery on 08/12/23 Assessment & Plan (08/17/2024 2:54 PM EDT): -Referral to [facility] Pain Management sent 08/17/24 Assessment & Plan (08/30/2023 10:38 AM EDT): -Message sent to referrals team 08/30/23 to follow up on pending referral Assessment & Plan (07/31/2023 8:47 PM EDT): Cont symptomatic management Reviewed ED/urgent care precautions Healthcare maintenance 05/26/2023 Overview (04/16/2024): Dental: [facility] Dental Optometry: 10/07/22: SHELBY w/o diabetic retinopathy or diabetic macular edema. Colonoscopy: 05/30/22 at [facility] GI - Dr. Harrison. Plan to repeat in 1-2 years d/t poor prep. Referral to re-establish with GI sent 04/16/24. Assessment & Plan (08/30/2023 10:39 AM EDT): Declines COVID & PCV20 vaccines 08/29/23 Benign prostatic hyperplasia with urinary freque ncy 05/13/2022 Assessment & Plan (07/31/2023 7:22 PM EDT): Following with [facility] Urology - Dr. Arboleda Continues with tamsulosin 0.4mg nightly Chronic pelvic pain in male 05/13/2022 Overview (08/17/2024): -Following with [facility] Urology -Previous recommendation for pelvic floor physical therapy (pt not interested) -Continues with intermittent, chronic pelvic pain. Currently asymptomatic -02/14/23: US retroperitoneal ordered by AMERICO Lares. 1. Nephrocalcinosis. No hydronephrosis. 2. Enlarged prostate. Mild diffuse thickening and mucosal irregularity of the bladder wall. 07/13/2024: [facility] urology. Cystoscopy 06/07 open bladder neck. History of incomplete bladder emptying with weakness of stream. Managed with doxazosin 4 mg daily, finasteride initiated at time of retention. Cystoscopy completed on 07/13/2024. 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 Dr. Esteves -Hx of cardiac catheterization in [place] due to [place] that led to coronary artery bypass surgery -Had further cardiac cath in [place] in 2019 that led to stenting of OM2 branch. -Pt to continue anticoagulation and nitroglycerin as needed through Cards Assessment & Plan (07/19/2024 4:43 PM EDT): - Given extensive cardiac history, transferred urgently to [facility] ED for further eval Coronary arteriosclerosis 04/17/2018 Diabetic neuropathy 04/17/2018 Essential hypertension 04/17/2018 Generalized ischemic myocardial dysfunction 07/2018 S/P CABG x 5 04/17/2018 Type 2 diabetes mellitus 04/17/2018 Overview (08/17/2024): -Previously followed by [facility] Endo for management, although previous provider left and have not yet established with new provider -Reports BG readings usually ~120 fasting, and then around 100-200 throughout the day -Current regimen includes: -30 units nightly lantus -Novolog 6 units before meals -metformin 500mg BID -Jardiance 10mg daily -CGM approved, plan for initial teaching and device application 08/14/22 at [facility] Pharmacy -Podiatry: referral placed 06/05/22 -Optometry: last CEE September 2022 ([facility]) Lab Results Component Value Date HGBA1C 8.9 (A) 07/16/2024 Assessment & Plan (08/17/2024 3:01 PM EDT): Start Jardiance 10mg daily. Reviewed med safety and SE. F/up in 6 weeks Assessment & Plan (07/19/2024 4:41 PM EDT): [...] 23 08/17/2022 Overview (08/17/2022): ?? Followed by [facility] Pain Management Abdominal pain of unknown cause 05/13/2022 08/30/2023 UTI symptoms 05/13/2022 06/16/2022 Pain in joint of left shoulder 11/19/2018 06/16/2022 Inguinal lymphadenopathy 08/27/201808/2022 Trigger ring finger of right hand 06/08/2018 06/16/2022 Encounters Date Type Department Care Team Description 08/19/2024 Orders Only GENERIC EXTERNAL DATA DEPARTMENT Provider, Generic External Data 08/11/2024 Telephone [facility] [address] [place] [address] Waleska Goldberg FNP Referral 08/10/2024 Plan of Care Documentation [facility] [address] [place] [phone] 08/10/2024 Patient Outreach [facility] [address] [place] [address] Waleska Goldberg FNP Care Coordination (C3 initial assessment/ enrollment) 08/09/2024 9:30 AM EDT Office Visit [facility] [address] [place] [address] Waleska Goldberg FNP Type 2 diabetes mellitus without complication, with long-term current use of insulin ([facility]) (Primary Dx); Lumbar back pain; Fracture of left patella with routine healing; Right hand pain; Thoracic degenerative disc disease 08/09/2024 Patient Outreach [facility] [address] [place] [address] Waleska Goldberg FNP Care Coordination (C3/CHW Ben Wilkinson, initial assessment scheduled, SDOH assessment completed ) 08/09/2024 Telephone [facility] [address] [place] [address] Waleska Goldberg FNP 08/09/2024 Patient Outreach [facility] [address] [place] [address] Waleska Goldberg FNP 08/09/2024 Travel 08/06/2024 Patient Outreach [address] [address] Waleska Goldberg, DECK MATE Care Coordination (Outreach) 08/06/2024 Patient Outreach [facility] [address] [place] [address] Waleska Goldberg FNP 08/04/2024 Patient Outreach [address] [address] Waleska Goldberg, DECK MATE Care Coordination (C3CM/CHW Emiliano Sandoval #2 initial outreach_lvm ) 07/28/2024 Patient Outreach [address] [address] Waleska Goldberg, DECK MATE Care Coordination (C3CM/MARBELLA Wilkinson, EMILIANO ADT initial assessment ) 07/28/2024 Patient Outreach [address] [address] Waleska Goldberg, DECK MATE Care Coordination (C3CM/MARBELLA Wilkinson, Chart review ) 07/28/2024 Patient Outreach [facility] [address] [place] [address] Waleska Goldberg, DECK MATE 07/28/2024 Patient Outreach [facility] [address] [place] [address] Waleska Goldberg, DECK MATE 07/27/2024 Patient Outreach [address] [address] Waleska Goldberg, DECK MATE 07/26/2024 Patient Outreach [address] [address] Waleska Goldberg, DECK MATE Transition Of Care (Tcm) 07/26/2024 Patient Outreach [address] [address] Waleska Goldberg FNP 07/23/2024 Telephone [facility] [address] [place] [address] Waleska Goldberg FNP TC: Med Consult 07/21/2024 Patient Outreach [facility] [address] [place] [address] Waleska Goldberg FNP Transition Of Care (Tcm) (HDF scheduled) 07/16/2024 11:30 AM EDT Office Visit [facility] [address] [place] [address] Waleska Goldberg FNP Chronic systolic heart failure (CMS/HCC) (Primary Dx); Type 2 diabetes mellitus without complication, with long-term current use of insulin (CMS/HCC); Right hand pain; Dizziness 07/16/2024 Telephone [facility] [address] [place] [address] Waleska Goldberg FNP 07/16/2024 Travel 07/13/2024 Telephone [facility] [address] [place] [address] Waleska Goldberg FNP Chart Prep 07/13/2024 Patient Outreach [facility] [address] [place] [phone] Waleska Goldberg FNP Care Coordination (Outreach) 06/30/2024 Telephone [facility] [address] [place] [address] Waleska Goldberg FNP Referral 06/30/2024 Telephone [facility] [address] [place] [address] Waleska Goldberg FNP Novolog 06/30/2024 Telephone [facility] [address] [place] [address] Waleska Goldberg FNP Results (AMERICO Lebron [facility] Nurses/ Please call to review imaging: XR left foot demonstrated heel spurs and mild degenerative changes/arthritis. If he is not already following with podiatry, please let me know if he is interested in a referral. /) 06/25/2024 Population Health Risk Score [facility] () Department [address] [phone] Provider, Population Health Generic 06/15/2024 Refill [facility] [address] [place] [address] Waleska Goldberg FNP Type 2 diabetes mellitus without complication, with long-term current use of insulin ([facility]); Essential hypertension; Other hyperlipidemia 06/10/2024 Patient Outreach [facility] [address] [place], [place] [phone] Waleska Goldberg FNP Care Coordination (Outreach) 06/09/2024 Travel 06/07/2024 Refill [facility] [address] [place] [address] Waleska Goldberg FNP Fracture of left patella with routine healing 06/02/2024 Refill [facility] [address] [place] [address] Waleska Goldberg FNP Fracture of left patella with routine healing 06/01/2024 Telephone [facility] [address] [place], [place] [phone] Aileen Ford RN 06/01/2024 Refill [facility] [address] [place], [place] [phone] Waleska Goldberg FNP Fracture of left patella with routine healing 05/24/2024 Patient Outreach [facility] [address] [place] [address] Waleska Goldberg FNP Transition Of Care (Tcm) 05/24/2024 Patient Outreach [facility] [address] [place] [address] Waleska Goldberg FNP Transition Of Care (Tcm) from Last 3 Months Immunizations Name Administration [...] Answer Date Recorded Patient Health Questionnaire-9 Score 0 08/10/2024 Patient Health Questionnaire-9 Score 0 08/10/2024 Last PHQ-9: Questionnaire Data Not on file 0 08/10/2024 Housing Stability Answer Date Recorded What is your housing situation today? I have cierra winston 04/16/[address] you li ve. Do you have problems with any of the following? None of the above 04/16/2024 Food Insecurity Answer Date Recorded Within the past 12 months, y ou worried that your food would run out before you got money to buy more: Often true 08/09/2024 Within the past 12 months,th e food you bought just didn't last and you didn't have enough money to get more: Often true Transportation Answer Date Recorded In the past [...] Date Recorded Patient Health Questionnaire-2 Score 0 08/10/2024 Internet Access Answer Date Recorded Internet Access [...] Sign Reading Time Taken Comments Blood Pressure 112/74 08/09/2024 9:01 AM EDT Pulse 66 08/09/2024 9:01 AM EDT Temperature 36.5 ??C (97.7 ??F) 08/09/2024 9:01 AM ED T Respiratory Rate 22 08/09/2024 9:01 AM EDT Oxygen Saturation 96% 07/16/2024 12:29 PM EDT Inhaled Oxygen Concentration - - Weight 76.8 kg (169 lb 4 oz) 08/09/2024 9:01 AM EDT Height 172.7 cm (5' 8 ) 08/09/2024 9:01 AM EDT Body Mass Index 25.73 08/09/2024 9:01 AM EDT Plan of Treatment Upcoming Encounters Date Type Department Care Team (Late st Contact Info) Description 10/04/2024 11:00 AM EDT Office Visit [facility] [address] [place] [address] Waleska Goldberg FNP [address] [place] [address] 10/22/2024 11:30 AM EDT Office Visit [facility] [address] [place] [address] Waleska Goldberg FNP [address] [place] [address] Health Maintenance Due Date Last Done Comments CT Colonography 1965 FIT DNA/Cologuard 1965 FIT 1965 FOBT 1965 HIV Screening 1965 Sigmoidoscopy 1965 Diabetes: Foot Exam 1975 Hepatitis C Screening 1983 Hepatitis B Vaccines (1 of 3 - 19+ 3-dose series) 1984 Zoster Vaccines (1 of 2) 2015 Pneumococcal Vaccine: 50+ Years (2 of 2 - PCV) 06/13/2019 06/12/2018, 04/17/2018 Dental Oral Exam 03/09/2023 09/05/2022 COVID-19 Vaccine ( - season) 2023 07/21/2020, 06/23/2020 Influenza Vaccine (#1) 2023 9, 01/04/2019, 04/17/2018 Dental Prophylaxis 12/28/2023 06/26/2023 Colonoscopy 05/30/2024 05/30/2022 Colorectal Cancer Screening 05/30/2024 Dental X-Ray: Bitewings 06/26/2024 06/26/2023, 08/15 Eye Exam 10/07/2024 10/07/2022, 09/13, 10/07/2022, Additional history exists Diabetes: Hemoglobin A1C 11/19/2024 025, 07/16/2024, 04/16/2024, Additional history exists Alcohol/Substance Use Screening 04/16/2025 04/16/2024 SDOH Screening 08/09/2025 08/09/2024 Tobacco Screening 08/09/2025 08/09/2024 Depression Screening 08/10/2025 08/10/2024, 08/11/19 Diabetes: Urine Protein Screening 08/19/2025 08/19/2024, 08/06/2021, 05/07/2021 Lipid Panel 08/19/2025 08/19/2024, 05/07/2021 Dental X-Ray: Full Mouth 06/26/2026 06/26/2023 DTaP/Tdap/Td [...] Procedure Name Priority Date/Time Associated Diagnosis Comments HIGH SENSITIVITY TROPONIN I Routine 08/19/2024 2:47 PM EDT COMPREHENSIVE METABOLIC PANEL Routine 08/19/2024 2:47 PM EDT CBC WITH AUTO DIFFERENTIAL Routine 08/19/2024 2:[address] HEAD WO CONTRAST Routine 08/19/2024 2 :30 PM EDT XR HAND 3+ VIEWS RIGHT Routine 8:36 AM EDT Right hand pain LIPID PANEL, STANDARD Routine 08/19/2024 8:35 AM EDT C-REACTIVE PROTEIN Routine 08/19/2024 8: 35 AM EDT HEMOGLOBIN A1C Routine 08/19/2024 8:35 AM EDT LIPASE Routine 08/19/2024 8:35 AM EDT Type 2 diabetes mellitus without complication, with long-term current use of insulin (CMS/HCC) COMPREHENSIVE METABOLIC PANEL Routine 08/19/2024 8:35 AM EDT Type 2 diabetes mellitus without complication, with long-term current use of insulin (CMS/HCC) ALBUMIN, RANDOM URINE W/CREATININE Routine 08/19/2024 8:29 AM EDT Type 2 diabetes mellitus without complication, with long-term current use of insulin (CMS/HCC) POCT GLYCATED HEMOGLOBIN, TOTAL Routine 07/16/2024 4:31 PM EDT Type 2 diabetes mellitus without complication, with long-term current use of insulin (CMS/HCC) POCT GLUCOSE Routine 07/16/2024 4:28 PM EDT Type 2 diabetes mellitus without complication, with long-term current use of insulin (CMS/HCC) AMB REFERRAL TO UROLOGY Urgent 07/13/2024 Benign prostatic hyperplasia with urinary frequency Urinary retention XR FOOT 3+ VIEWS LEFT Routine 06/25/2024 8:54 AM EDT Left foot pain PROPHYLAXIS - ADULT Routine 06/26/2023 8 :00 AM EDT Dental calculus INTRAORAL - COMPLETE SERIES OF RADIOGRAPHIC IMAGES Routine 06/26/2023 8:00 AM EDT PERIODIC ORAL EVALUATION - ESTABLISHED PATIENT Routine 09/05/2022 9:30 AM EDT Encounter for dental examination Dental caries Malocclusion Bruxism HM COLONOSCOPY Routine 05/30/2022 9:04 PM EST from Last 3 Months or Most Recently Relevant to Health Maintenance Results * High Sensitivity Troponin I (08/19/2024 2:47 PM EDT) [facility] TROPONIN I HIGH SENSITIVITY 3.4 <3.5 - 35.0 ng/L [facility] Comment:The [place] high sens itivity Troponin-I results should beused in conjunction with other diagnostic information suchas ECG, clinical observations and information, and patientsymptoms to aid in the diagnosis of [place]. 08/19/2024 2:47 PM EDT 08/19/2024 2:56 PM EDT us Generic External Data Provider LAB BLOOD ORDERAB LES Final Result [facility] [address] [place] [phone] * (ABNORMAL) CBC auto differential (08/19/2024 2:47 PM EDT) [facility] White Blood Count 5.9 4.8 - 10.8 X10*3/uL [facility] Red Blood Count 4.51(L) 4.60 - 5.80 X10*6/uL [facility] Hemoglobin 14.1 14.0 - 18.0 g/dl [facility] Hematocrit 40.1(L) 42.0 - 52.0 % [facility] Mean Corpuscular Volume 88.9 80.0 - 98.0 fL [facility] Mean Corpuscular Hemoglobin 31.3 27.0 - 33.0 pg [facility] Mean Corpuscular HGB Conc 35.2 31.0 - 36.0 g/dl [facility] Red Cell Distribution Width 13.0 11.0 - 16.0 % [facility] Platelet Count 171 160 - 400 X10*3/uL [facility] Mean Platelet Volume 10.7 9.4 - 12.4 fL [facility] Neutrophils Percent Auto 64.6 45 - 73 % [facility] Imm Gran Pct Auto 0.3 0.0 - 0.4 % [facility] Lymphocytes Percent Auto 24.0 20 - 40 % [facility] Monocytes Percent Auto 7.0 2 - 11 % [facility] Eosinophils Percent Auto 3.4 0 - 4 % [facility] Basophils Percent Auto 0.7 0 - 2 % [facility] NRBC Pct Auto 0.0 0.0 - 0.2 /100WBC [facility] Neutrophils Absolute Auto 3.8 2.0 - 8.3 x10*3/uL [facility] Imm Gran Abs Auto 0.02 0.00 - 0.03 X10*3/uL [facility] Lymphocytes Absolute Auto 1.4 1.2 - 4.9 X10*3/uL [facility] Monocytes Absolute Auto 0.4 0.1 - 1.2 X10*3/uL [facility] Eosinophils Absolute Auto 0.2 0.0 - 0.4 X10*3/uL [facility] Basophils Absolute Auto 0.0 0.0 - 0.2 X10*3/uL [facility] NRBC Abs Auto 0.000 0.0 - 0.012 X10*3/uL [facility] 08/19/2024 2:47 PM EDT 08/19/2024 2:56 PM EDT us Generic External Data Provider LAB BLOOD ORDERAB LES Final Result [facility] [address] [place] [address] [phone] * (ABNORMAL) Comprehensive Metabolic Panel (08/19/2024 2:47 PM EDT) Only the most recent of2 resultswithin the time period is included. Sodium 139 135 - 145 mmol/L [facility] Potassium 4.0 3.3 - 5.1 mmol/L [facility] Chloride 108 96 - 108 mmol/L [facility] Carbon Dioxide 22 22 - 29 mmol/L [facility] Anion Gap 13 12 - 20 [facility] Urea Nitrogen (BUN) 28(H) 9 - 16 mg/dL [facility] Creatinine, Serum 1.00 0.5 - 1.4 mg/dL [facility] Creatinine Clr Calc Pharmacy 76.9 [facility] Comment:eGFR (calculated fro m the MDRD study equation) and eCrCl(calculated from the Cockcroft-Gault equation) are based ondifferent parameters and may not yield comparable results.If eCrCl result is absurd, please check patient'sheight/weight. Estimated Glomerular Filt Rate >60 [facility] Comment:Chronic Kidney Disea se: Estimated GFR < 60 mL/min/1.71k2Tzpuip Kidney Disease: Estimated GFR < 15 mL/min/1.73m2 Glucose 197(H) 60 - 115 mg/dL [facility] Calcium 8.6 8.4 - 10.2 mg/dL [facility] Bilirubin, Total 1.5(H) 0.0 - 1.0 mg/dL [facility] Aspartate Amino Transferase 25 5 - 37 U/L [facility] Alanine Aminotransferase 19 0 - 40 U/L [facility] Total Protein 6.3(L) 6.5 - 8.0 g/dL [facility] Albumin Level 3.9 3.5 - 5.0 g/dL [facility] Alkaline Phosphatase 123(H) 39 - 117 U/L [facility] 08/19/2024 2:47 PM EDT 08/19/2024 2:56 PM EDT us Generic External Data Provider LAB BLOOD ORDERAB LES Final Result [facility] [address] [place] [phone] * CT Head w/o Contrast (08/19/2024 2:30 PM EDT) Anatomical Region Laterality Modality Head, Neck Computed Tomogra phy 08/19/2024 2:30 PM EDT Narrative 08/19/2024 3:27 PM EDT ? [facility] ?[address] ?[place] [address] ? CT Scan Report ? Signed ? Patient: Barrett Goldman ?MR#: MM ?? [id number] ? : 1965 ?Acct:[id number] ? Age/Sex: 59 / M ?ADM Date: 08/19/24 ? Loc: HO.ED ? Attending Dr: ? Ordering Physician: Celi Trent NP ?? Date of Service: 08/19/24 ?? Procedure(s): CT head/brain wo IV con ?? Accession Number(s): [id number] ? cc: Waleska Goldberg DECK MATE; Celi Trent NP ? Report Number: ?? [id number]: Total DLP = ??622.00 mGy-cm ?? EXAMINATION: ?? CT HEAD WITHOUT CONTRAST ? CLINICAL INFORMATION: ?? severe headache ? COMPARISON: ?? March 04, 2024. ? TECHNIQUE: ?? Contiguous axial imaging was [...] of iterative reconstruction technique ? DLP: ?? 622 mGy-cm ? FINDINGS: ?? Small soft tissue contusion superior left parietal soft tissue scalp. ?? Bony calvarium is intact. ?? Old traumatic deformities in the nasal bones and left lamina papyracea. ?? No acute intracranial hemorrhage, mass effect, midline shift, ?? hydrocephalus or herniation. ?? Fernández-white matter differentiation is normal. ?? Posterior cranial fossa contents demonstrated no acute intracranial ?? hemorrhage or mass effect. ?? Sellar/suprasellar region demonstrated no gross masses or hemorrhage. ?? Craniocervical junction is intact with normal position of the ?? cerebellar tonsils. ?? Mucosal thickening in the paranasal sinuses. Tympanic cavities and ?? mastoid air cells are aerated. ?? Pneumatized left petrous apex. ? CT/CT head/brain wo IV con ?? IMPRESSION: ?? No acute intracranial hemorrhage. ?? Old traumatic deformities, nasal bones and left lamina papyracea ? Electronically signed by: ??Kane Moncada MD ??08/19/2024 03:24 PM ?? EDT RP ? Dictated By: ?Kane Gutiérrez MD ? Signed By: ?<Electronically signed by Kane Banerjee MD in OV> ? 08/19/24 1524 ? DD/ 1430 ? TD/TT: 08/19/24 1516 ? Para Professional: ? Procedure Note Esther, Image - 08/19/[address] [place] [address] [address] Scan Report Signed Patient: Barrett Goldman AMR#: [id number] : 1965Acct:[id number] Age/Sex: 59 / MADM Date: 08/19/24 Loc: HO.ED Attending Dr: Ordering Physician: Celi Trent NP Date of Service: 08/19/24 Procedure(s): CT head/brain wo IV con Accession Number(s): [id number] cc: Waleska Goldberg DECK MATE; Celi Trent NP Report Number: [id number]: Total DLP = 622.00 mGy-cm EXAMINATION: CT HEAD WITHOUT CONTRAST CLINICAL INFORMATION: severe headache COMPARISON: March 04, 2024. TECHNIQUE: Contiguous axial imaging was performed from [...] head) *Use of iterative reconstruction technique DLP: 622 mGy-cm FINDINGS: Small soft tissue contusion superior left parietal soft tissue scalp. Bony calvarium is intact. Old traumatic deformities in the nasal bones and left lamina papyracea. No acute intracranial hemorrhage, mass effect, midline shift, hydrocephalus or herniation. Fernández-white matter differentiation is normal. Posterior cranial fossa contents demonstrated no acute intracranial hemorrhage or mass effect. Sellar/suprasellar region demonstrated no gross masses or hemorrhage. Craniocervical junction is intact with normal position of the cerebellar tonsils. Mucosal thickening in the paranasal sinuses. Tympanic cavities and mastoid air cells are aerated. Pneumatized left petrous apex. CT/CT head/brain wo IV con IMPRESSION: No acute intracranial hemorrhage. 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 [facility] ?[address] ?[place] [address] ?XRay Report ? Signed ? Patient: Barrett Goldman ?MR#: MM ?? [id number] ? : 1965 ?Acct:[id number] ? Age/Sex: 59 / M ?ADM Date: 05/08/25 ? Loc: HO.XRAY ? Attending Dr: Waleska DRISCOLL ? Ordering Physician: Waleska Goldberg ?? Date of Service: 08/19/24 ?? Procedure(s): XR hand RT min 3V ?? Accession Number(s): [id number] ? cc: Waleska Goldberg ? EXAMINATION: ?? XR HAND, RIGHT ? CLINICAL INFORMATION: ?? Pain in hand s/p fall ? COMPARISON: ?? None available. ? TECHNIQUE: ?? PA, lateral, and oblique views of the right hand. ? FINDINGS: ?? Inadequate evaluation of the carpal bones/wrist. ?? Old traumatic deformity fifth metacarpal. ?? Joint space narrowing at the proximal and distal interphalangeal joints ?? of the digits from the second to the fifth. ?? No acute cortical disruption. ?? No gross malalignment. ?? There is a 2 mm calcific abnormality within the deep fat ?? planes/muscular planes of the ventral distal forearm overlapping the ?? distal metaphysis diaphysis junction of the radius. ?? Vascular calcifications. ? XR/XR hand RT min 3V ?? IMPRESSION: ?? No acute fracture or gross dislocation. ?? Probable 2 mm foreign body ventral aspect distal forearm/wrist junction. ?? 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 ?? Osteoarthrosis. ?? Atherosclerosis disease, peripheral. ? Electronically signed by: ??Kane Moncada MD ??08/19/2024 08:53 AM ?? EDT RP ? Dictated By: ?Kane Gutiérrez MD ? Signed By: ?<Electronically signed by Kane Banerjee MD in OV> ? 08/19/24 0853 ? DD/ ? TD/TT: 08/19/24846 ? Para Professional: ? Procedure Note Fritz Santana - 08/19/[address] [address] XRay Report Signed Patient: Barrett Goldman AMR#: [id number] : 1965Acct:[id number] Age/Sex: 59 / MADM Date: 08/19/24 Loc: DANIEL Attending Dr: Waleska Goldberg DECK MATE Ordering Physician: Waleska Goldberg Date of Service: 08/19/24 Procedure(s): XR hand RT min 3V Accession Number(s): [id number] cc: Waleska Goldberg EXAMINATION: XR HAND, RIGHT CLINICAL INFORMATION: Pain in hand s/p fall COMPARISON: None available. TECHNIQUE: PA, lateral, and oblique views of the right hand. FINDINGS: Inadequate evaluation of the carpal bones/wrist. Old traumatic deformity fifth metacarpal. Joint space narrowing at the proximal and distal interphalangeal joints of the digits from the second to the fifth. No acute cortical disruption. No gross malalignment. There is a 2 mm calcific abnormality within the deep fat planes/muscular planes of the ventral distal forearm overlapping the distal metaphysis diaphysis junction of the radius. Vascular calcifications. XR/XR hand RT min 3V IMPRESSION: No acute fracture or gross dislocation. Probable 2 mm foreign body ventral aspect distal forearm/wrist junction. 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 Osteoarthrosis. Atherosclerosis disease, peripheral. Electronically signed by: Kane Moncada MD 08/19/2024 08:53 AM EDT RP Dictated By: Kane Gutiérrez MD Signed By: <Electronically signed by Kane Banerjee MDin OV> 08/19/24 0853 DD/ 0836 TD/TT: 08/19/24 0847 Para Professional: Waleska Goldberg DECK MATE IMG XR PROCEDURES Edited Resul t - Final * C-reactive Protein (08/19/2024 8:35 AM EDT) C Reactive Protein 0.16 < or = 0.50 mg/dL [facility] 08/19/2024 8:35 AM EDT 08/19/2024 8:35 AM EDT us Generic External Data Provider LAB BLOOD ORDERAB LES Final Result [facility] [address] [place] [phone] * Lipase (08/19/2024 8:35 AM EDT) Lipase 25 8 - 78 U/L [facility] Blood Venous blood specimen / Unknown 08/19/2024 8:35 AM EDT 08/19/2024 8:35 AM EDT us Waleska Goldberg DECK MATE LAB BLOOD ORDERABLES Final Res ult Performing Organization Address [facility] Co de Phone Number [facility] [address] [place] [phone] * (ABNORMAL) Hemoglobin A1c (08/19/2024 8:35 AM EDT) Hemoglobin A1c 7.9(H) <6.0 % [facility] Comment:Hemoglobin A1C Refer ence Range Adults: 4.8 - 6.0 % Non diabetic: < 6.0 % Goal: < 7.0 %Additional Action Suggested: > 8.0 %Note: Hemoglobin A1c results are invalid for patients with abnormal amounts of HbF. Blood transfusions may impact the HbA1c concentration in the patient sample. Estimated Average Glucose 180 mg/dL [facility] Comment:eAG = Estimated ave rage glucose which is %A1C expressed asaverage glucose, using the formula of the Y9P-NickzqsWtxxsou Glucose study (ADAG), Diabetes Care, Vol.31,#8,Nov. 2007 08/19/2024 8:35 AM EDT 08/19/2024 8:35 AM EDT us Generic External Data Provider LAB BLOOD ORDERAB LES Final Result Performing Organization Address [facility] Co de Phone Number [facility] [address] [place] [phone] * (ABNORMAL) Lipid Panel, Standard (08/19/2024 8:35 AM EDT) Triglycerides 87 <150 mg/dL [facility] Comment:Desirable Triglyceri de: less than 150 mg/dLBorderline High Triglyceride 150-199 mg/dLHigh Triglyceride: 200-499 mg/dLVery High Triglyceride: greater than or equal to 5OO mg/dL Cholesterol 137 <200 mg/dL [facility] Comment:Desirable Cholestero l: less than 200 mg/dLBorderline High Cholesterol: 200-239 mg/dLHigh Cholesterol: greater than 239 mg/dL LDL Cholesterol Calculated 86 <100 mg/dL [facility] Comment:Desirable LDL: less than 100 mg/dLNear Optimal/Above Optimal LDL: 110- 129 mg/dLBorderline High LDL: 130-159 mg/dLHigh LDL: 160-189 mg/dLVery High LDL: greater than or equal to 190 mg/dL HDL Cholesterol 34(L) >40 mg/dL [facility] Comment:Desirable HDL: great er than 40 mg/dL Note: This HDL assay may give artificially low results in patients with liver disease. 08/19/2024 8:35 AM EDT 08/19/2024 8:35 AM EDT us Generic External Data Provider LAB BLOOD ORDERAB LES Final Result Performing Organization Address [facility]/ZIP Co de Phone Number [facility] [address] [place] [phone] * Albumin, Random Urine W/Creatinine (08/19/2024 8:29 AM EDT) Creatinine, Urine 218.70 mg/dL [facility] Microalbumin Urine 12.0 mg/L [facility] Microalbum Creatinine Ratio Ur 5.4 <30 ug/mg cr [facility] Comment:Albumin/Creatinine R atio Reference Ranges: Normal: < 30 ug/mg creatinine Microalbuminuria: 30 - 300 ug/mg creatinineClinical Albuminuria: > 300 ug/mg creatinine Urine 08/19/2024 8:29 AM EDT 08/19/2024 8:50 AM EDT us Waleska Goldberg DECK MATE LAB URINE ORDERABLES Final Res ult Performing Organization Address City/[facility]/ZIP Co de Phone Number [facility] [address] [place] [phone] * (ABNORMAL) POCT HGB A1C (07/16/2024 4:31 PM EDT) [facility] Hemoglobin A1C 8.9(A) 4.0 - 6.0 % QC Media Lot # [id number] Lot# Expiration Date ,026 Blood 07/16/2024 4:31 PM EDT Waleska Goldberg DECK MATE POINT OF CARE TEST ENTER/EDIT ORDERABLES Final Result * (ABNORMAL) POCT Glucose (07/16/2024 4:28 PM EDT) [facility] Glucose Blood, POC 422(A) 60 - 200 mg/dL QC Media Lot # [id number] Lot# Expiration Date 732,025 Blood Capillary blood specimen / Unknown 07/16/2024 4:28 PM EDT Waleska Goldberg DECK MATE POINT OF CARE TEST ENTER/EDIT ORDERABLES Final Result * Referral to Urology (07/13/2024) us Waleska Goldberg DECK MATE OUTPATIENT REFERRAL ORDERABLES Edited Result - Final * XR Foot 3+ Views Left (06/25/2024 8:54 AM EDT) Anatomical Region Laterality Modality Lower Extremities, Foot Left Radiogra phic Imaging 06/25/2024 8:54 AM EDT Narrative 06/25/2024 8:55 AM EDT ? [facility] ?[address] ?[place] [address] ?XRay Report ? Signed ? Patient: Barrett Goldman ?MR#: MM ?? [id number] ? : 1965 ?Acct:[id number] ? Age/Sex: 59 / M ?ADM Date: 03/13/25 ? Loc: HO.XRAY ? Attending Dr: Chely BINGHAM ? Ordering Physician: Waleska Goldberg ?? Date of Service: 06/24/24 ?? Procedure(s): XR foot LT min 3V ?? Accession Number(s): [id number] ? cc: Waleska Goldberg ? CLINICAL HISTORY: [...] ? DD/ 0854 ? TD/TT: 06/25/2454 ? Para Professional: ? Procedure Note Donlovely, Image - 06/25/2024 [place] [address] XRay Report Signed Patient: Barrett Goldman AMR#: [id number] : 1965Acct:[id number] Age/Sex: 59 / MADM Date: 06/24/24 Loc: DANIEL Attending Dr: Chely Randhawa OFFICE ASSISTANT-C Ordering Physician: Waleska Goldberg Date of Service: 06/24/24 Procedure(s): XR foot LT min 3V Accession Number(s): [id number] cc: Waleska Goldberg CLINICAL HISTORY: 58 y [...] in OV> 06/25/24 0855 DD/ TD/TT: 06/25/24853 Para Professional: Waleskacedric Goldberg DECK MATE IMG XR PROCEDURES Final Result * Hm Colonoscopy (05/30/2022 9:04 PM EST) Historical Provider HEALTH MAINTENANCE Final Result from Last 3 Months or Most Recently Relevant to Health Maintenance Insurance [facility] C3 DENTAL-[facility] MEDICAID STAND ADULT Care Teams Silica Filter Operator Relationship Specialty Start Date End Date Waleska Goldberg FNP [address] [place] [phone] PCP - General Family Medicine 12/12/21 Gloria Flores Rn TriageProperty Investor 03/13/23
--- OUTSIDE RECORDS SUMMARY | 2024-08-19 18:00 | XMS_ITS | Encounter Summary ---
Author Organization [employer] Address [address] [place] [address] Care Team Providers Care Contact Lens Manufacturer Name Role Phone Waleska Goldberg [employer] Primary Care Provider [phone] Encounter Details Date Type Department Care Team (Late st Contact Info) Description 08/19/2024 Orders Only GENERIC EXTERNAL DATA [...] Description 10/04/2024 11:00 AM EDT Office Visit [facility] [address] [place] [address] Waleska Goldberg FNP [address] [place] [address] 10/22/2024 11:30 AM EDT Office Visit [facility] [address] [place] [address] Waleska Goldberg FNP [address] [place] [address] documented as of this encounter Procedures Procedure Name Priority Date/Time Associated Diagnosis Comments HIGH SENSITIVITY TROPONIN I Routine 08/19/2024 2:47 PM EDT CBC WITH AUTO DIFFERENTIAL Routine 08/19/2024 2:47 PM EDT COMPREHENSIVE METABOLIC PANEL Routine 08/19/2024 2:[address] HEAD WO CONTRAST Routine 08/19/2024 2 :30 PM EDT C-REACTIVE PROTEIN Routine 08/19/2024 8: 35 AM EDT HEMOGLOBIN A1C Routine 08/19/2024 8:35 AM EDT LIPID PANEL, STANDARD Routine 08/19/2024 8:35 AM EDT documented in this encounter Results * High Sensitivity Troponin I (08/19/2024 2:47 PM EDT) Pathologist [facility] TROPONIN I HIGH SENSITIVITY 3.4 <3.5 - 35.0 ng/L [facility] Comment:The [place] high sens itivity Troponin-I results should beused in conjunction with other diagnostic information suchas ECG, clinical observations and information, and patientsymptoms to aid in the diagnosis of [place]. 08/19/2024 2:47 PM EDT 08/19/2024 2:56 PM EDT us Generic External Data Provider LAB BLOOD ORDERAB LES Final Result [facility] [address] [place] [phone] * (ABNORMAL) Comprehensive Metabolic Panel (08/19/2024 2:47 PM EDT) Pathologist [facility] Sodium 139 135 - 145 mmol/L [facility] Potassium 4.0 3.3 - 5.1 mmol/L [facility] Chloride 108 96 - 108 mmol/L [facility] Carbon Dioxide 22 22 - 29 mmol/L [facility] Anion Gap 13 12 - 20 [facility] Urea Nitrogen (BUN) 28(H) 9 - 16 mg/dL [facility] Creatinine, Serum 1.00 0.5 - 1.4 mg/dL [facility] Creatinine Clr Calc Pharmacy 76.9 [facility] Comment:eGFR (calculated fro m the MDRD study equation) and eCrCl(calculated from the Cockcroft-Gault equation) are based ondifferent parameters and may not yield comparable results.If eCrCl result is absurd, please check patient'sheight/weight. Estimated Glomerular Filt Rate >60 [facility] Comment:Chronic Kidney Disea se: Estimated GFR < 60 mL/min/[id number] Kidney Disease: Estimated GFR < 15 mL/min/1.73m2 Glucose 197(H) 60 - 115 mg/dL [facility] Calcium 8.6 8.4 - 10.2 mg/dL [facility] Bilirubin, Total 1.5(H) 0.0 - 1.0 mg/dL [facility] Aspartate Amino Transferase 25 5 - 37 U/L [facility] Alanine Aminotransferase 19 0 - 40 U/L [facility] Total Protein 6.3(L) 6.5 - 8.0 g/dL [facility] Albumin Level 3.9 3.5 - 5.0 g/dL [facility] Alkaline Phosphatase 123(H) 39 - 117 U/L [facility] 08/19/2024 2:47 PM EDT 08/19/2024 2:56 PM EDT us Generic External Data Provider LAB BLOOD ORDERAB LES Final Result [facility] [address] [place], [place] [phone] * (ABNORMAL) CBC auto differential (08/19/2024 2:47 PM EDT) White Blood Count 5.9 4.8 - 10.8 X10*3/uL [facility] Red Blood Count 4.51(L) 4.60 - 5.80 X10*6/uL [facility] Hemoglobin 14.1 14.0 - 18.0 g/dl [facility] Hematocrit 40.1(L) 42.0 - 52.0 % [facility] Mean Corpuscular Volume 88.9 80.0 - 98.0 fL [facility] Mean Corpuscular Hemoglobin 31.3 27.0 - 33.0 pg [facility] Mean Corpuscular HGB Conc 35.2 31.0 - 36.0 g/dl [facility] Red Cell Distribution Width 13.0 11.0 - 16.0 % [facility] Platelet Count 171 160 - 400 X10*3/uL [facility] Mean Platelet Volume 10.7 9.4 - 12.4 fL [facility] Neutrophils Percent Auto 64.6 45 - 73 % [facility] Imm Gran Pct Auto 0.3 0.0 - 0.4 % [facility] Lymphocytes Percent Auto 24.0 20 - 40 % [facility] Monocytes Percent Auto 7.0 2 - 11 % [facility] Eosinophils Percent Auto 3.4 0 - 4 % [facility] Basophils Percent Auto 0.7 0 - 2 % [facility] NRBC Pct Auto 0.0 0.0 - 0.2 /100WBC [facility] Neutrophils Absolute Auto 3.8 2.0 - 8.3 x10*3/uL [facility] Imm Gran Abs Auto 0.02 0.00 - 0.03 X10*3/uL [facility] Lymphocytes Absolute Auto 1.4 1.2 - 4.9 X10*3/uL [facility] Monocytes Absolute Auto 0.4 0.1 - 1.2 X10*3/uL [facility] Eosinophils Absolute Auto 0.2 0.0 - 0.4 X10*3/uL [facility] Basophils Absolute Auto 0.0 0.0 - 0.2 X10*3/uL [facility] NRBC Abs Auto 0.000 0.0 - 0.012 X10*3/uL [facility] 08/19/2024 2:47 PM EDT 08/19/2024 2:56 PM EDT us Generic External Data Provider LAB BLOOD ORDERAB LES Final Result Performing Organization Address [facility]/State/[facility] Co de Phone Number [facility] [address] [place] [phone] * CT Head w/o Contrast (08/19/2024 2:30 PM EDT) Anatomical Region Laterality Modality Head, Neck Computed Tomogra phy 08/19/2024 2:30 PM EDT Narrative 08/19/2024 3:27 PM EDT ? [facility] ?[address] ?[place] [address] ? CT Scan Report ? Signed ? Patient: Mcadams Hickman,Celso ?MR#: MM ?? [id number] ? : 1965 ?Acct:[id number] ? Age/Sex: 59 / M ?ADM Date: 08/19/24 ? Loc: HO.ED ? Attending Dr: ? Ordering Physician: Celi Trent NP ?? Date of Service: 08/19/24 ?? Procedure(s): CT head/brain wo IV con ?? Accession Number(s): [id number] ? cc: Waleska Goldberg BLOOD DONOR RECRUITER SUPERVISOR; Celi Trent NP ? Report Number: ?? [id number]: Total DLP = ??622.00 mGy-cm ?? EXAMINATION: [...] DD/ 1430 ? TD/TT: 08/19/24 1516 ? Paper Pattern Folder: ? Procedure Note Donlovely, Fritz - 08/19/[address] [address] [address] Scan Report Signed Patient: Barrett Goldman AMR#: [id number] : 1965Acct:[id number] Age/Sex: 59 / MADM Date: 08/19/24 Loc: HO.ED Attending Dr: Ordering Physician: Celi Trent NP Date of Service: 08/19/24 Procedure(s): CT head/brain wo IV con Accession Number(s): [id number] cc: Waleska Goldberg BLOOD DONOR RECRUITER SUPERVISOR; Celi Trent NP Report Number: [id number]: Total DLP = 622.00 mGy-cm EXAMINATION: CT [...] 08/19/24 1524 DD/ 1430 TD/TT: 08/19/24 1516 Paper Pattern Folder: [facility] External Provider IMG CT PROCEDURES Edited Result - Final * (ABNORMAL) Lipid Panel, Standard (08/19/2024 8:35 AM EDT) Triglycerides 87 <150 mg/dL [facility] Comment:Desirable Triglyceri de: less than 150 mg/dLBorderline High Triglyceride 150-199 mg/dLHigh Triglyceride: 200-499 mg/dLVery High Triglyceride: greater than or equal to 5OO mg/dL Cholesterol 137 <200 mg/dL [facility] Comment:Desirable Cholestero l: less than 200 mg/dLBorderline High Cholesterol: 200-239 mg/dLHigh Cholesterol: greater than 239 mg/dL LDL Cholesterol Calculated 86 <100 mg/dL [facility] Comment:Desirable LDL: less than 100 mg/dLNear Optimal/Above Optimal LDL: 110- 129 mg/dLBorderline High LDL: 130-159 mg/dLHigh LDL: 160-189 mg/dLVery High LDL: greater than or equal to 190 mg/dL HDL Cholesterol 34(L) >40 mg/dL [facility] Comment:Desirable HDL: great er than 40 mg/dL Note: This HDL assay may give artificially low results in patients with liver disease. 08/19/2024 8:35 AM EDT 08/19/2024 8:35 AM EDT Generic External Data Provider LAB BLOOD ORDERAB LES Final Result [facility] [address] [place] [phone] * C-reactive Protein (08/19/2024 8:35 AM EDT) C Reactive Protein 0.16 < or = 0.50 mg/dL [facility] 08/19/2024 8:35 AM EDT 08/19/2024 8:35 AM EDT us Generic External Data Provider LAB BLOOD ORDERAB LES Final Result Performing Organization Address [facility] de Phone Number [facility] [address] [place] [phone] * (ABNORMAL) Hemoglobin A1c (08/19/2024 8:35 AM EDT) Hemoglobin A1c 7.9(H) <6.0 % [facility] Comment:Hemoglobin A1C Refer ence Range Adults: 4.8 - 6.0 % Non diabetic: < 6.0 % Goal: < 7.0 %Additional Action Suggested: > 8.0 %Note: Hemoglobin A1c results are invalid for patients with abnormal amounts of HbF. Blood transfusions may impact the HbA1c concentration in the patient sample. Estimated Average Glucose 180 mg/dL [facility] Comment:eAG = Estimated ave rage glucose which is %A1C expressed asaverage glucose, using the formula of the I4F-NbayyioUfiymzz Glucose study (ADAG), Diabetes Care, Vol.31,#8,2007 08/19/2024 8:35 AM EDT 08/19/2024 8:35 AM EDT Generic External Data Provider LAB BLOOD ORDERAB LES Final Result Performing Organization Address [facility] Co de Phone Number [facility] [address] [place] [phone] documented in this encounter Visit Diagnoses Not on filedocumented in this encounter Additional Health Concerns Assessment Noted Time PHQ-9 Depression Total Score: 0 04/29/20 25 11:33 AM EDT documented as of this encounter Care Teams Contact Lens Manufacturer Relationship Specialty Start Date End Date Waleska Goldberg FNP [address] [place] [address] PCP - General Family Medicine 12/12/21 Gloria Flores Automobile Assembly SupervisorIsotope Technician 03/13/23 documented as of this encounter
[2024-08-19] MEDS: Ibuprofen 600 MG TABLET PO (18:05)
[2024-08-19] MEDS: methocarbamoL 750 MG TABLET 1500 MG PO (18:45)
[2024-08-19 19:00] VITALS: BP 134/78; PULSE 84; RESP 16; TEMP 36.2; O2SAT 97
== END 2024-08-19 19:00 | disposition home or self-care (01) ==
PROVIDERS: Registered Nurse Emergency; Emergency Provider Emergency Medicine; PCP Registered Nurse
DX: R51.9 Headache, unspecified (principal); M54.12 Radiculopathy, cervical region; M54.2 Cervicalgia; E11.9 Type 2 diabetes mellitus without complications; I10 Essential (primary) hypertension; Z79.84 Long term (current) use of oral hypoglycemic drugs; Z79.4 Long term (current) use of insulin; Z79.899 Other long term (current) drug therapy
CPT/HCPCS: 36415; 70450; 80053; 84484; 85025; 93005; 99284

== ENCOUNTER → 2024-08-19 14:22 | Outpatient (BNV) | payer MEDICAID, SELFPAY | PROVIDERS: Emergency Provider Emergency Medicine; PCP Registered Nurse; Visit Provider Internal Medicine | DX: I45.10 Unspecified right bundle-branch block (principal); I25.2 Old myocardial infarction | CPT/HCPCS: 93010 ==

== ENCOUNTER 2024-08-26 11:09 | Outpatient (REF) | payer MEDICAID, SELFPAY ==
--- OUTSIDE RECORDS SUMMARY | 2024-08-26 12:22 | XMS_ITS | Encounter Summary ---
Author Organization [employer] Address [address] [place] [address] Care Team Providers Care Church Supervisor Name Role Phone Waleska Goldberg Primary Care Provider [phone] Reason for Visit * Reason Onset Date Comments Med Refill 06/01/2024 Encounter Details Date Type Department Care Team (Late st Contact Info) Description 06/01/2024 Refill [facility] MEDICINE [address] [place] [address] Waleska Goldberg FNP [address] [place] [address] Fracture of left patella with routine healing [...] up for visit. [facility]. Thank you! * Telephone Encounter - Dee Nuñez - 06/01/2024 3:53 PM EST TC from pt requesting medication refill. Medications needing refill : oxyCODONE-acetaminophen (Percocet) 10-325 MG tablet To be sent to: [facility]/pharmacy #[id number] documented in this encounter Plan of Treatment Upcoming Encounters Date Type Department Care Team ([facility] st Contact Info) Description 10/04/2024 11:00 AM EDT Office Visit [facility] MED & PEDS [address] [place] [address] Waleska Goldberg FNP [address] [place], [place] [id number] 10/22/2024 11:30 AM EDT Office Visit [facility] MED & PEDS [address] [place] [address] Waleska Goldberg FNP [address] [place] [address] documented as of this encounter Visit Diagnoses Diagnosis Fracture of left patella with routine healing documented in this encounter Additional Health Concerns Assessment Noted Time PHQ-9 Depression Total Score: 6 07/30/19 24 10:53 AM EDT documented as of this encounter Care Teams Church Supervisor Relationship Specialty Start Date End Date Waleska Goldberg FNP [address] [place] [address] PCP - General Family Medicine 12/12/21 Gloria Flores Corrosion Prevention Metal SprayerDesktop Specialist 03/13/23 documented as of this encounter
--- OUTSIDE RECORDS SUMMARY | 2024-08-26 12:22 | XMS_ITS | Encounter Summary ---
Author Organization [employer] Address [address] [place] [address] Care Team Providers Care Retail Custodial Associate Name Role Phone Waleska Goldberg Primary Care Provider [phone] Reason for Visit * Reason Comments Med Refill Encounter Details Date Type Department Care Team (Late st Contact Info) Description 09/28/2023 Refill [facility] MEDICINE [address] [place] [address] Waleska Goldberg FNP [address] [place], [place] [phone] Insomnia, unspecified type Social History Tobacco Use [...] Description 10/04/2024 11:00 AM EDT Office Visit [facility] MED & PEDS [address] [place] [address] Waleska Goldberg FNP [address] [place] [address] 10/22/2024 11:30 AM EDT Office Visit [facility] MED & PEDS [address] [place] [address] Waleska Goldberg FNP [address] [place] [address] documented as of this encounter Visit Diagnoses Diagnosis Insomnia, unspecified type documented in this encounter Additional Health Concerns Assessment Noted Time PHQ-9 Depression Total Score: 6 07/30/19 24 10:53 AM EDT documented as of this encounter Care Teams Retail Custodial Associate Relationship Specialty Start Date End Date Waleska Goldberg FNP [address] [place] [address] PCP - General Family Medicine 12/12/21 Gloria Flores Manpower Development SpecialistCommunity Youth Secretary 03/13/23 documented as of this encounter
--- OUTSIDE RECORDS SUMMARY | 2024-08-26 12:22 | XMS_ITS | Encounter Summary ---
Author Organization [employer] Address [address] [place] [address] Care Team Providers Care Vocational Technical Education Director Name Role Phone Waleska Goldberg Primary Care Provider Encounter Details Date Type Department Care Team ([facility] st Contact Info) Description 08/23/2024 Patient Outreach [facility] MED & PEDS [address] [place], [place] [phone] Waleska Goldberg FNP [address] [place] [address] Social History Tobacco Use Types Packs/Day Years [...] 11:00 AM EDT Office Visit [facility] MED & PEDS [address] [place] [address] Waleska Goldberg FNP [address] [place] [address] 10/22/2024 11:30 AM EDT Office Visit [facility] MED & PEDS [address] [place] [address] Waleska Goldberg FNP [address] [place] [address] documented as of this encounter Visit Diagnoses Not on filedocumented in this encounter Additional Health Concerns Assessment Noted Time PHQ-9 Depression Total Score: 0 08/11/19 25 11:33 AM EDT documented as of this encounter Care Teams Vocational Technical Education Director Relationship Specialty Start Date End Date Waleska Goldberg FNP [address] [place] [address] PCP - General Family Medicine 12/12/21 Gloria Flores Lockstitch Waistband SetterPsychology Lecturer 03/13/23 documented as of this encounter
--- OUTSIDE RECORDS SUMMARY | 2024-08-26 12:22 | XMS_ITS | Encounter Summary ---
Author Organization [employer] Address [address] [place] [address] Care Team Providers Care Captain Fire Prevention Bureau Name Role Phone Waleska Goldberg Primary Care Provider [phone] Reason for Visit * Reason Onset Date Comments Referral 05/28/2022 Encounter Details Date Type Department Care Team (Late st Contact Info) Description 05/28/2022 Telephone [facility] MEDICINE [address] [place] [address] Waleska Goldberg FNP [address] [place] [address] Referral Social History Tobacco Use Types Packs/Day [...] Description 10/04/2024 11:00 AM EDT Office Visit [facility] MED & PEDS [address] [place] [address] Waleska Goldberg FNP [address] [place] [address] 10/22/2024 11:30 AM EDT Office Visit [facility] MED & PEDS [address] [place] [address] Waleska Goldberg FNP [address] [place] [address] documented as of this encounter Visit Diagnoses Not on filedocumented in this encounter Care Teams Captain Fire Prevention Bureau Relationship Specialty Start Date End Date Waleska Goldberg FNP [address] [place] [address] PCP - General Family Medicine 12/12/21 Gloria Flores Yoga TeacherFlorist 03/13/23 documented as of this encounter
--- OUTSIDE RECORDS SUMMARY | 2024-08-26 12:22 | XMS_ITS | Encounter Summary ---
Author Organization [employer] Address [address] [place] [address] Care Team Providers Care Operations Research Scientist Name Role Phone Waleska Goldberg Primary Care Provider [phone] Encounter Details Date Type Department Care Team (Latest Contact Info) Description 07/10/2020 Abstract [facility] CONVERSIONS Dental, Provider, DDS Social History [...] 11:00 AM EDT Office Visit [facility] MED & PEDS [address] [place] [address] Waleska Goldberg FNP [address] [place] [address] 10/22/2024 11:30 AM EDT Office Visit [facility] MED & PEDS [address] [place] [address] Waleska Goldberg FNP [address] [place] [address] documented as of this encounter Visit Diagnoses Not on filedocumented in this encounter Care Teams Operations Research Scientist Relationship Specialty Start Date End Date Waleska Goldberg FNP [address] [place] [address] [place] [address] PCP - General Family Medicine 12/12/21 Gloria Flores Hydro MechanicChief Drafter 03/13/23 documented as of this encounter
--- OUTSIDE RECORDS SUMMARY | 2024-08-26 12:22 | XMS_ITS | Encounter Summary ---
Author Organization [employer] Address [address] [place] [address] Care Team Providers Care Intermediate Manager Name Role Phone Waleska Goldberg Primary Care Provider [phone] Reason for Visit * Reason Comments Care Coordination C3CM f/u call Encounter Details Date Type Department Care Team (Latest Contact Info) Description 08/24/[address] [facility] MED & PEDS [address] [place], [place] [phone] Waleska Goldberg FNP [address] [place] [address] Care Coordination (C3CM f/u call) Social History Tobacco Use Types Packs/Day Years [...] as of this encounter Progress Notes * Brittanie Gonzalez RN - 08/24/2024 1:30 PM EDT CM placed an outreach call to pt with MARBELLA Garcia to patient for follow up call. CM informed pt of upcoming appointment with pain management. Pt states he is unable to attend that appointment. Pt's phone got disconnected. CM was unable to reach out to patient at this time. documented in this encounter Plan of Treatment Upcoming Encounters Date Type Department Care Team (Late st Contact Info) Description 10/04/2024 11:00 AM EDT Office Visit [facility] MED & PEDS [address] [place] [address] Waleska Goldberg FNP [address] [place] [address] 10/22/2024 11:30 AM EDT Office Visit [facility] MED & PEDS [address] [place] [address] Waleska Goldberg FNP [address] [place] [address] documented as of this encounter Visit Diagnoses Not on filedocumented in this encounter Additional Health Concerns Assessment Noted Time PHQ-9 Depression Total Score: 0 08/11/19 25 11:33 AM EDT documented as of this encounter Care Teams Intermediate Manager Relationship Specialty Start Date End Date Waleska Goldberg FNP [address] [place] [address] PCP - General Family Medicine 12/12/21 Gloria Flores Lidar ScientistBotanical Technical Officer 03/13/23 documented as of this encounter
--- OUTSIDE RECORDS SUMMARY | 2024-08-26 12:22 | XMS_ITS | Clinical Summary ---
Author Organization [employer] Address [address] [place] [address] Care Team Providers Care Supervisor Varnish Name Role Phone Waleska Goldbreg AMERICO Primary Care Provider [phone] Allergies No known active allergies Medications UltiGuard SafePack Pen Needle 32G X 4 MM miscIndications:T ype 2 diabetes mellitus without complication, with long-term current use of insulin (CMS/HCC) USE DIRECTED 6 TIMES PER DAY 100 each 11 05/22/19 23 Active fluticasone (Flonase) 50 MCG/ACT nasal sprayIndications: Nasal congestion USE 1-2 SPRAYS IN EACH NOSTRIL DAILY NEEDED FOR NASAL CONGESTION 48 g 3 05/30/19 23 Active docusate sodium (Colace) 100 MG capsule TAKE 2 CAPSULES BY MOUTH EVERY DAY AT BEDTIME 05/22/19 23 Active doxazosin (Cardura) 4 MG tablet TAKE 1 TABLET BY MOUTH AT BEDTIME 03/28/20 22 Active nitroglycerin (Nitrostat) 0.[address] 1 TABLET UNDER THE TONGUE NEEDED FOR CHEST PAIN - MAY REPEAT IN 5 MINUTES TWICE. IF NO RELIEF CALL 911 OR GO TO EMERGENCY ROOM. 05/10/19 23 Active ranolazine (Ranexa) 500 MG 12 hr tablet TAKE 1 TABLET BY MOUTH TWICE DAILY IN THE MORNING AND AT BEDTIME 03/28/20 22 Active furosemide (Lasix) 20 MG tablet Take 1 tablet by mouth daily Active Continuous Blood Gluc Go Go Dancer (EtaphaseStyle Alfredo 2 [place]) deviceIndications :Type 2 diabetes mellitus without complication, with long-term current use of insulin (CMS/HCC) Use to check blood glucose levels throughout the day 1 each 06/17/19 23 Active Continuous Blood Gluc Sensor (FreeStyle Alfredo 2 Sensor) miscIndications:T ype 2 diabetes mellitus without complication, with long-term current use of insulin ([facility]) Use to check blood sugar levels throughout the day 2 each 06/17/19 23 Active Blood Glucose Monitoring Suppl (FreeStyle Maribel Lite) w/Device kitIndications:Ty pe 2 diabetes mellitus without complication, with long-term current use of insulin ([facility]) Use to test blood sugar 1-2 times daily 1 kit 07/30/19 24 Active baclofen (Lioresal) 10 MG tablet TAKE 1 TABLET BY MOUTH THREE TIMES DAILY IN THE MORNING, AT NOON, AND AT BEDTIME NEEDED FOR MUSCLE SPASMS 60 tablet 1 09/18/19 24 Active Diclofenac Sodium 1 % gelIndications:Ar thralgia of hands, bilateral APPLY 2 GRAMS TOPICALLY TO HANDS 2-3 TIMES PER DAY NEEDED FOR PAIN 100 g 2 09/22/19 24 Active aspirin (Aspirin Low Dose) 81 MG chewable tabletIndications :Coronary arteriosclerosis, Chronic systolic heart failure (CMS/HCC) TAKE 1 TABLET BY MOUTH EVERY MORNING 90 tablet 3 12/24/19 24 Active isosorbide mononitrate ER (Imdur) 60 MG 24 hr tabletIndications :Coronary arteriosclerosis, Chronic systolic heart failure (CMS/HCC) TAKE 1 TABLET BY MOUTH EVERY MORNING 90 tablet 3 12/24/19 24 Active lisinopril 2.5 MG tabletIndications :Coronary arteriosclerosis, Chronic systolic heart failure (CMS/HCC) TAKE 1 TABLET BY MOUTH AT BEDTIME 90 tablet 3 12/24/19 24 Active naloxone (Narcan) 4 mg/0.1 mL nasal sprayIndications: Chronic bilateral low back pain, unspecified whether sciatica present Administer 1 spray (4 mg) into affected nostril(s) if needed for opioid reversal. May repeat every 2-3 minutes if needed, alternating nostrils, until medical assistance becomes available. 2 each 01/09/20 24 025 Active Lantus SoloStar 100 UNIT/ML penIndications:Ty pe 2 diabetes mellitus treated with insulin ([facility]) INJECT 30 UNITS SUBCUTANEOUSLY ONCE DAILY 15 mL 4 02/20/20 24 Active insulin aspart (NovoLOG FLEXPEN) 100 UNIT/ML penIndications:Ty pe 2 diabetes mellitus without complication, with long-term current use of insulin ([facility]) INJECT 6 UNITS SUBCUTANEOUSLY 3 TIMES DAILY WITH MEALS AND USE 8 UNITS IF BG>200. 30 mL 2 02/23/20 24 Active clopidogrel (Plavix) 75 MG tablet TAKE 1 TABLET BY MOUTH EVERY MORNING 90 tablet 1 03/17/20 24 Active ezetimibe (Zetia) 10 MG tablet TAKE 1 TABLET BY MOUTH EVERY MORNING 90 tablet 3 03/17/20 24 Active Fiber-Lax 625 MG tablet Take 1 tablet by mouth every 6 (six) hours during the day. 01/22/20 24 Active ammonium lactate (Amlactin) 12 % creamIndications: Xerosis of skin Apply topically if needed for dry skin. Apply to feet 1-2 times per day. 140 g 3 04/16/19 25 026 Active metFORMIN (Glucophage) 500 MG tabletIndications :Type 2 diabetes mellitus without complication, with long-term current use of insulin ([facility]) TAKE 1 TABLET BY MOUTH TWICE DAILY IN THE MORNING AND IN THE EVENING WITH MEALS 180 tablet 3 06/18/19 25 Active TRUEplus Lancets 33G miscIndications:T ype 2 diabetes mellitus without complication, with long-term current use of insulin ([facility]) USE TO TEST BLOOD SUGAR FOUR TIMES DAILY 100 each 11 06/18/19 25 Active carvedilol (Coreg) 3.125 MG tabletIndications :Essential hypertension TAKE 1 TABLET BY MOUTH TWICE DAILY IN THE MORNING AND IN THE EVENING WITH FOOD 180 tablet 3 06/18/19 25 Active atorvastatin (Lipitor) 80 MG tabletIndications :Other hyperlipidemia TAKE 1 TABLET BY MOUTH EVERY EVENING FOR CHOLESTEROL 90 tablet 3 06/18/19 25 Active glucose blood (FREESTYLE LITE) test stripIndications: Type 2 diabetes mellitus without complication, with long-term current use of insulin ([facility]) TEST BLOOD SUGAR FOUR TIMES DAILY AND NEEDED FOR BLOOD SUGAR <70 MG/dL 100 strip 11 06/18/19 25 Active finasteride (Proscar) 5 MG tablet Take 1 tablet by mouth Once per day. Do not crush, chew, or split. Active empagliflozin (Jardiance) 10 MGIndications:Typ e 2 diabetes mellitus without complication, with long-term current use of insulin ([facility]) Take 1 tablet (10 mg) by mouth Once per day. 90 tablet 1 08/10/19 25 026 Active oxyCODONE (Roxicodone) 5 MG immediate release tablet Take 0.5 tablets by mouth every 4 (four) hours if needed for severe pain. 07/21/19 25 025 oxyCODONE-acetami nophen (Percocet) 10-325 MG tabletIndications :Lumbar back pain Take 1 tablet by mouth if needed each day for severe pain for up to 7 days. 7 tablet 08/10/19 25 025 Active Problems Patient Care Coordination No te Formatting of this note migh t be different from the original. C3/CM Yesenia Page RN Problem Noted Date Diagnosed Date Fracture of left patella with routine healing Overview (05/23/2024): Following with [facility] - Dr. Monahan Assessment & Plan (08/17/2024 2:51 PM EDT): - Completed physical therapy - Referral to [facility] placed for further eval - Pain [...] knee 08/30/2023 Overview (04/16/2024): - Followed by [facility] - Plan for trial knee sleeve [...] Plan (08/17/2024 2:54 PM EDT): -Referral to [facility] sent 08/17/24 Assessment & Plan (08/30/2023 10:38 AM EDT): -Message sent to referrals team 08/30/23 to follow up on pending referral Assessment & Plan (07/31/2023 8:47 PM EDT): Cont symptomatic management Reviewed ED/urgent care precautions Healthcare maintenance 05/26/2023 Overview (04/16/2024): Dental: [facility] Dental Optometry: 10/07/22: SHELBY w/o diabetic retinopathy or diabetic macular edema. Colonoscopy: 05/30/22 at [facility] - Dr. Harrison. Plan to repeat in 1-2 years d/t poor prep. Referral to re-establish with GI sent 04/16/24. Assessment & Plan (08/30/2023 10:39 AM EDT): Declines COVID & PCV20 vaccines 08/29/23 Benign prostatic hyperplasia with urinary freque ncy 05/13/2022 Assessment & Plan (07/31/2023 7:22 PM EDT): Following with [facility] - Dr. Arboleda Continues with tamsulosin 0.4mg nightly Chronic pelvic pain in male 05/13/2022 Overview (08/17/2024): -Following with [facility] -Previous recommendation for pelvic floor physical therapy (pt not interested) -Continues with intermittent, chronic pelvic pain. Currently asymptomatic -02/14/23: US retroperitoneal ordered by AMERICO Lares. 1. Nephrocalcinosis. No hydronephrosis. 2. Enlarged prostate. Mild diffuse thickening and mucosal irregularity of the bladder wall. 07/13/2024: [facility]. Cystoscopy 06/07 open bladder neck. History [...] heart failure 04/17/2018 Overview (06/16/2022): -Followed by [facility] [place]. Dr. Esteves -Hx of cardiac catheterization in [place] due to [place] that led to coronary artery bypass surgery -Had further cardiac cath in [place] in 2018 that led to stenting of OM2 branch. -Pt to continue anticoagulation and nitroglycerin as needed through Cards Assessment & Plan (07/19/2024 4:43 PM EDT): - Given extensive cardiac history, transferred urgently to [facility] ED for further eval Coronary arteriosclerosis 04/17/2018 Diabetic neuropathy 04/17/2018 Essential hypertension 04/17/2018 Generalized ischemic myocardial dysfunction 07/2018 S/P CABG x 5 04/17/2018 Type 2 diabetes mellitus 04/17/2018 Overview (08/17/2024): -Previously followed by [facility] for management, although previous provider left and have not yet established with new provider -Reports BG readings usually ~120 fasting, and then around 100-200 throughout the day -Current regimen includes: -30 units nightly lantus -Novolog 6 units before meals -metformin 500mg BID -Jardiance 10mg daily -CGM approved, plan for initial teaching and device application 08/14/22 at [facility] Pharmacy -Podiatry: referral placed 06/05/22 -Optometry: last CEE September 2022 ([facility]) Lab Results Component [...] sites 08/18/1908/17/2022 Overview (08/17/2022): ?? Followed by [facility] Abdominal pain of unknown cause 05/13/2022 08/30/2023 UTI symptoms 05/13/2022 06/16/2022 Pain in joint of left shoulder 11/19/2018 06/16/2022 Inguinal lymphadenopathy 08/27/201808/2022 Trigger ring finger of right hand 06/08/2018 06/16/2022 Encounters Date Type Department Care Team Description 08/25/2024 Telephone [facility] [address] [place] [phone] Waleska Goldberg FNP 08/24/2024 Patient Outreach [facility] [address] [place] [address] Waleska Goldberg CHIEF CONSTRUCTION INSPECTOR Care Coordination (C3CM f/u call) 08/23/2024 Patient Outreach [address] [address] Waleska Goldberg FNP Care Coordination (C3/CHW Ben Wilkinson SDPR F/U_LVM) 08/23/2024 Patient Outreach [facility] [address] [place] [address] Waleska Goldberg FNP 08/20/2024 Telephone [facility] [address] [place] [address] Waleska Goldberg FNP Results; Referral 08/20/2024 Telephone [facility] [address] [place] [address] Waleska Goldberg FNP 08/19/2024 Orders Only GENERIC EXTERNAL DATA DEPARTMENT Provider, Generic External Data 08/11/2024 Telephone [facility] [address] [place] [address] Waleska Goldberg CHIEF CONSTRUCTION INSPECTOR Referral 08/10/2024 Plan of Care Documentation [facility] [address] [place] [address] 08/10/2024 Patient Outreach [facility] [address] [place] [address] Waleska Goldberg CHIEF CONSTRUCTION INSPECTOR Care Coordination (C3 initial assessment/ enrollment) 08/09/2024 9:30 AM EDT Office Visit [facility] [address] [place] [address] Phalen, Waleska, CHIEF CONSTRUCTION INSPECTOR Type 2 diabetes mellitus without complication, with long-term current use of insulin ([facility]) (Primary Dx); Lumbar back pain; Fracture of left patella with routine healing; Right hand pain; Thoracic degenerative disc disease 08/09/2024 Patient Outreach [facility] [address] [place] [address] Waleska Goldberg, CHIEF CONSTRUCTION INSPECTOR Care Coordination (C3/MARBELLA Wilkinson, initial assessment scheduled, [facility] assessment completed ) 08/09/2024 Telephone [facility] [address] [place] [address] Waleska Goldberg CHIEF CONSTRUCTION INSPECTOR Results 08/09/2024 Patient Outreach [facility] [address] [place] [address] Waleska Goldberg CHIEF CONSTRUCTION INSPECTOR 08/09/2024 Travel 08/06/2024 Patient Outreach [address] [address] Waleska Goldberg CHIEF CONSTRUCTION INSPECTOR Care Coordination (Outreach) 08/06/2024 Patient Outreach [facility] [address] [place] [address] Waleska Goldberg, CHIEF CONSTRUCTION INSPECTOR 08/04/2024 Patient Outreach [address] [address] Waleska Goldberg, CHIEF CONSTRUCTION INSPECTOR Care Coordination ([facility]/Emiliano Nur #2 initial outreach_lvm ) 07/28/2024 Patient Outreach [address] [address] Waleska Goldberg, CHIEF CONSTRUCTION INSPECTOR Care Coordination (JAVIER/EMILIANO Nur ADT initial assessment ) 07/28/2024 Patient Outreach [address] [address] Waleska Goldberg, CHIEF CONSTRUCTION INSPECTOR Care Coordination (JAVIER/MARBELLA Wilkinson, Chart review ) 07/28/2024 Patient Outreach [facility] [address] [place] [address] Waleska Goldberg, CHIEF CONSTRUCTION INSPECTOR 07/28/2024 Patient Outreach [facility] [address] [place] [address] Waleska Goldberg FNP 07/27/2024 Patient Outreach [facility] [address] [place] [address] Waleska Goldberg FNP 07/26/2024 Patient Outreach [address] [address] Waleska Goldberg FNP Transition Of Care (Tcm) 07/26/2024 Patient Outreach [address] [address] Waleska Goldberg FNP 07/23/2024 Telephone [facility] [address] [place] [address] Waleska Goldberg FNP TC: Med Consult 07/21/2024 Patient Outreach [address] [address] Waleska Goldberg FNP Transition Of Care (Tcm) (HDF scheduled) 07/16/2024 11:30 AM EDT Office Visit [facility] [address] [place] [address] Waleska Goldberg FNP Chronic systolic heart failure (CMS/HCC) (Primary Dx); Type 2 diabetes mellitus without complication, with long-term current use of insulin (CMS/HCC); Right hand pain; Dizziness 07/16/2024 Telephone [facility] [address] [place] [address] Waleska Goldberg FNP 07/16/2024 Travel 07/13/2024 Telephone [facility] [address] [place] [address] Waleska Goldberg FNP Chart Prep 07/13/2024 Patient Outreach [address] [address] Waleska Goldberg FNP Care Coordination (Outreach) 06/30/2024 Telephone [facility] [address] [place] [address] Waleska Goldberg FNP Referral 06/30/2024 Telephone [facility] [address] [place] [address] Waleska Goldberg FNP Novolog 06/30/2024 Telephone [facility] [address] [place] [address] Waleska Goldberg FNP Results (AMERICO [facility] Nurses/ Please call to review imaging: XR left foot demonstrated heel spurs and mild degenerative changes/arthritis. If he is not already following with podiatry, please let me know if he is interested in a referral. /) 06/25/2024 Population Health Risk Score Community Care [facility] (C3) Department [address] [phone] Provider, Population Health Generic 06/15/2024 Refill [facility] [address] [place], [place] [phone] Waleska Goldberg FNP Type 2 diabetes mellitus without complication, with long-term current use of insulin ([facility]); Essential hypertension; Other hyperlipidemia 06/10/2024 Patient Outreach [facility] [address] [place] [address] Waleska Goldberg FNP Care Coordination (Outreach) 06/09/2024 Travel 06/07/2024 Refill [facility] [address] [place] [address] Waleska Goldberg FNP Fracture of left patella with routine healing 06/02/2024 Refill [facility] [address] [place] [address] Waleska Goldberg FNP Fracture of left patella with routine healing 06/01/2024 Telephone [facility] [address] [place] [address] Aileen Ford RN 06/01/2024 Refill [facility] [address] [place], [place] [phone] Waleska Goldberg FNP Fracture of left patella with routine healing from Last 3 Months Immunizations Immunization Administration Dates Next Due Influenza injectable quadrivalent [...] your housing situation today? I have cierra tish 04/16/[address] you li [...] Description 10/04/2024 11:00 AM EDT Office Visit [facility] [address] [place] [address] Waleska Goldberg FNP [address] [place] [address] 10/22/2024 11:30 AM EDT Office Visit [facility] [address] [place] [address] Waleska Goldberg FNP [address] [place] [address] Health Maintenance Due Date Last Done Comments [...] Dental Oral Exam 03/09/2023 09/05/2022 COVID-19 Vaccine (3 - 2023- season) 2023 07/21/2020, 06/23/2020 Influenza Vaccine (#1) [...] patient's age to complete this topic Meningococcal B Vaccine Aged Out No l onger eligible based on patient's age to complete [...] Routine 8:36 AM EDT Right hand pain TESTOSTERONE, TOTAL, MALES (ADULT), IA Routine 08/19/2024 8:35 AM EDT LH Routine 08/19/2024 8:35 AM EDT LIPID PANEL, [...] complication, with long-term current use of insulin ([facility]) AMB REFERRAL TO UROLOGY Urgent 07/13/2024 Benign [...] Troponin I (08/19/2024 2:47 PM EDT) Pathologist [facility] TROPONIN I HIGH SENSITIVITY 3.4 <3.5 - 35.0 ng/L [facility] Comment:The Aguilera high sens itivity Troponin-I results should beused in conjunction with other diagnostic information suchas ECG, clinical observations and information, and patientsymptoms to aid in the diagnosis of [place]. 08/19/2024 2:47 PM EDT 08/19/2024 2:56 PM EDT us Generic External Data Provider LAB BLOOD ORDERAB LES Final Result [facility] [address] [place] [phone] * (ABNORMAL) CBC auto differential (08/19/2024 2:47 PM EDT) White Blood Count 5.9 4.8 - 10.8 X10*3/uL [facility] Red Blood Count 4.51(L) 4.60 - 5.80 X10*6/uL [facility] Hemoglobin 14.1 14.0 - 18.0 g/dl [facility] Hematocrit 40.1(L) 42.0 - 52.0 % [facility] Mean Corpuscular Volume 88.9 80.0 - 98.0 fL [facility] Mean Corpuscular Hemoglobin 31.3 27.0 - 33.0 pg [facility] Mean Corpuscular HGB Conc 35.2 31.0 - 36.0 g/dl [facility] Red Cell Distribution Width 13.0 11.0 - 16.0 % [facility] Platelet Count 171 160 - 400 X10*3/uL [facility] Mean Platelet Volume 10.7 9.4 - 12.4 fL [facility] Neutrophils Percent Auto 64.6 45 - 73 % [facility] Imm Gran Pct Auto 0.3 0.0 - 0.4 % [facility] Lymphocytes Percent Auto 24.0 20 - 40 % [facility] Monocytes Percent Auto 7.0 2 - 11 % [facility] Eosinophils Percent Auto 3.4 0 - 4 % [facility] Basophils Percent Auto 0.7 0 - 2 % [facility] NRBC Pct Auto 0.0 0.0 - 0.2 /100WBC [facility] Neutrophils Absolute Auto 3.8 2.0 - 8.3 x10*3/uL [facility] Imm Gran Abs Auto 0.02 0.00 - 0.03 X10*3/uL [facility] Lymphocytes Absolute Auto 1.4 1.2 - 4.9 X10*3/uL [facility] Monocytes Absolute Auto 0.4 0.1 - 1.2 X10*3/uL [facility] Eosinophils Absolute Auto 0.2 0.0 - 0.4 X10*3/uL [facility] Basophils Absolute Auto 0.0 0.0 - 0.2 X10*3/uL [facility] NRBC Abs Auto 0.000 0.0 - 0.012 X10*3/uL [facility] 08/19/2024 2:47 PM EDT 08/19/2024 2:56 PM EDT us Generic External Data Provider LAB BLOOD ORDERAB LES Final Result [facility] [address] [place], [place] [phone] * (ABNORMAL) Comprehensive Metabolic Panel (08/19/2024 2:47 PM EDT) Only the most recent of2 resultswithin the time period is included. Sodium 139 135 - 145 mmol/L [facility] Potassium 4.0 3.3 - 5.1 mmol/L [facility] Chloride 108 96 - 108 mmol/L [facility] Carbon Dioxide 22 22 - 29 mmol/L [facility] Anion Gap 13 12 - 20 [facility] Urea Nitrogen (BUN) 28(H) 9 - 16 mg/dL [facility] Creatinine, Serum 1.00 0.5 - 1.4 mg/dL [facility] Creatinine Clr Calc Pharmacy 76.9 [facility] Comment:eGFR (calculated fro m the MDRD study equation) and eCrCl(calculated from the Cockcroft-Gault equation) are based ondifferent parameters and may not yield comparable results.If eCrCl result is absurd, please check patient'sheight/weight. Estimated Glomerular Filt Rate >60 [facility] Comment:Chronic Kidney Disea se: Estimated GFR < 60 mL/min/1.86x4Fhgdrj Kidney Disease: Estimated GFR < 15 mL/min/1.73m2 Glucose 197(H) 60 - 115 mg/dL [facility] Calcium 8.6 8.4 - 10.2 mg/dL [facility] Bilirubin, Total 1.5(H) 0.0 - 1.0 mg/dL [facility] Aspartate Amino Transferase 25 5 - 37 U/L [facility] Alanine Aminotransferase 19 0 - 40 U/L [facility] Total Protein 6.3(L) 6.5 - 8.0 g/dL [facility] Albumin Level 3.9 3.5 - 5.0 g/dL [facility] Alkaline Phosphatase 123(H) 39 - 117 U/L [facility] 08/19/2024 2:47 PM EDT 08/19/2024 2:56 PM EDT us Generic External Data Provider LAB BLOOD ORDERAB LES Final Result [facility] [address] [facility] [place] [phone] * CT Head w/o Contrast (08/19/2024 2:30 PM EDT) Anatomical Region Laterality Modality Head, Neck Computed Tomogra phy 08/19/2024 2:30 PM EDT Narrative 08/19/2024 3:27 PM EDT ? [facility] ?[address] ?[place] [address] ? CT Scan Report ? Signed ? Patient: Barrett Goldman ?MR#: MM ?? [id number] ? : 1965 ?Acct:[id number] ? Age/Sex: 59 / M ?ADM Date: 08/19/24 ? Loc: HO.ED ? Attending Dr: ? Ordering Physician: Celi Trent NP ?? Date of Service: 08/19/24 ?? Procedure(s): CT head/brain wo IV con ?? Accession Number(s): [id number] ? cc: Waleska Goldberg CHIEF CONSTRUCTION INSPECTOR; Celi Trent NP ? Report Number: ?? [id number]: Total DLP = ??622.00 mGy-cm ?? EXAMINATION: [...] Moncada MD ??08/19/2024 03:24 PM ?? EDT ? Dictated By: ?Kane Gutiérrez MD ? Signed By: ?<Electronically signed by Kane Banerjee MD in OV> ? 08/19/24 1524 ? DD/ 1430 ? TD/TT: 08/19/24 1516 ? Marketing Manager: ? Procedure Note Fritz Santana - 08/19/[address] [place] [address] [address] Scan Report Signed Patient: Barrett Goldman [facility]#: [id number] : 1965Acct:[id number] Age/Sex: 59 / MADM Date: 08/19/24 Loc: HO.ED Attending Dr: Ordering Physician: Celi Trent NP Date of Service: 08/19/24 Procedure(s): CT head/brain wo IV con Accession Number(s): [id number] cc: Waleska Goldberg CHIEF CONSTRUCTION INSPECTOR; Celi Trent NP Report Number: [id number]: Total DLP = 622.00 mGy-cm EXAMINATION: CT [...] 08/19/24 1524 DD/ 1430 TD/TT: 08/19/24 1516 Marketing Manager: [facility] External Provider IMG CT PROCEDURES Edited Result - Final * XR Hand 3+ Views Right (08/19/2024 8:36 AM EDT) Anatomical Region Laterality Modality Upper Extremities, Hand Right [facility] 08/19/2024 8:36 AM EDT Narrative 08/19/2024 8:56 AM EDT ? [facility] ?[address] ?[place] [address] ?XRay Report ? Signed ? Patient: Mcadams Hickman,Celso ?MR#: MM ?? [id number] ? : 1965 ?Acct:[id number] ? Age/Sex: 59 / M ?ADM Date: 08/19/24 ? Loc: HO.XRAY ? Attending Dr: Waleska OWENSP ? Ordering Physician: Waleska Goldberg ?? Date of Service: 08/19/24 ?? Procedure(s): XR hand RT min 3V ?? Accession Number(s): [id number] ? cc: Waleska Goldberg ? EXAMINATION: ?? [...] Moncada MD ??08/19/2024 08:53 AM ?? EDT ? Dictated By: ?Kane Gutiérrez MD ? Signed By: ?<Electronically signed by Kane Banerjee MD in OV> ? 08/19/24 0853 ? DD/ 0836 ? TD/TT: 08/19/24 0847 ? Marketing Manager: ? Procedure Note Fritz Santana - 08/19/[address] [address] XRay Report Signed Patient: Barrett Goldman [facility]#: [id number] : 1965Acct:[id number] Age/Sex: 59 / MADM Date: 08/19/24 Loc: HO.XRAY Attending Dr: Waleska OWENSP Ordering Physician: Waleska Goldberg Date of Service: 08/19/24 Procedure(s): XR hand RT min 3V Accession Number(s): [id number] cc: Waleska Goldberg EXAMINATION: XR HAND, RIGHT [...] Kane Moncada MD 08/19/2024 08:53 AM EDT Dictated By: Kane Gutiérrez MD Signed By: <Electronically signed by Kane Banerjee MDin OV> 08/19/24 0853 DD/ 0836 TD/TT: 08/19/24 0847 Marketing Manager: us Waleska Goldberg CHIEF CONSTRUCTION INSPECTOR IMG XR PROCEDURES Edited Resul t - Final * C-reactive Protein (08/19/2024 8:35 AM EDT) C Reactive Protein 0.16 < or = 0.50 mg/dL [facility] 08/19/2024 8:35 AM EDT 08/19/2024 8:35 AM EDT us Generic External Data Provider LAB BLOOD ORDERAB LES Final Result Performing Organization Address [facility]/ZIP Co de Phone Number [facility] [address] [place], [place] [phone] * (ABNORMAL) Testosterone, Total, males (Adult), IA (08/19/2024 8:35 AM EDT) Testosterone, Total 202(A) 250 - 1100 ng/dL [facility] Comment:For additional infor mation, please refer [email or web address]/[email or web address](This link is being provided for informational/educational purposes only.)This test was developed and its analytical performancecharacteristics have been determined by [employer] [place], [place]. It hasnot been cleared or approved by the U.S. Food and DrugAdministration. This assay has been validated pursuantto the CLIA regulations and is used for clinicalpurposes.THIS TEST WAS PERFORMED AT:[employer] [place] [address]HUTSGENBETTYE FOUNTAIN MD,PHD 08/19/2024 8:35 AM EDT 08/19/2024 8:35 AM EDT us Generic External Data Provider LAB BLOOD ORDERAB LES Final Result Performing Organization Address [facility] Co de Phone Number [facility] [address] [place] [phone] * Lipase (08/19/2024 8:35 AM EDT) Lipase 25 8 - 78 U/L [facility] Blood Venous blood specimen / Unknown 08/19/2024 8:35 AM EDT 08/19/2024 8:35 AM EDT us Waleska Goldberg CHIEF CONSTRUCTION INSPECTOR LAB BLOOD ORDERABLES Final Res ult Performing Organization Address City/[facility]/ZIP Co de Phone Number [facility] [address] [place] [phone] * (ABNORMAL) Hemoglobin A1c (08/19/2024 8:35 AM EDT) Hemoglobin A1c 7.9(H) <6.0 % [facility] Comment:Hemoglobin A1C Refer ence Range Adults: 4.8 - 6.0 % Non diabetic: < 6.0 % Goal: < 7.0 %Additional Action Suggested: > 8.0 %Note: Hemoglobin A1c results are invalid for patients with abnormal amounts of HbF. Blood transfusions may impact the HbA1c concentration in the patient sample. Estimated Average Glucose 180 mg/dL [facility] Comment:eAG = Estimated ave rage glucose which is %A1C expressed asaverage glucose, using the formula of the R6J-DhdxqpoLojoirk Glucose study (ADAG), Diabetes Care, Vol.31,#8,2007 08/19/2024 8:35 AM EDT 08/19/2024 8:35 AM EDT us Generic External Data Provider LAB BLOOD ORDERAB LES Final Result Performing Organization Address City/[facility]/ZIP Co de Phone Number [facility] [address] [place] [phone] * LH (08/19/2024 8:35 AM EDT) Lutenizing Hormone 2.3 1.5 - 9.3 mIU/mL [facility] Comment:THIS TEST WAS PERFOR MED AT:[employer] [place] [phone] VALDES MD 08/19/2024 8:35 AM EDT 08/19/2024 8:35 AM EDT us Generic External Data Provider LAB BLOOD ORDERAB LES Final Result Performing Organization Address City/[facility]/ZIP Co de Phone Number [facility] [address] [place] [phone] * (ABNORMAL) Lipid Panel, Standard (08/19/2024 8:35 AM EDT) Triglycerides 87 <150 mg/dL [facility] Comment:Desirable Triglyceri de: less than 150 mg/dLBorderline High Triglyceride 150-199 mg/dLHigh Triglyceride: 200-499 mg/dLVery High Triglyceride: greater than or equal to 5OO mg/dL Cholesterol 137 <200 mg/dL [facility] Comment:Desirable Cholestero l: less than 200 mg/dLBorderline High Cholesterol: 200-239 mg/dLHigh Cholesterol: greater than 239 mg/dL LDL Cholesterol Calculated 86 <100 mg/dL [facility] Comment:Desirable LDL: less than 100 mg/dLNear Optimal/Above Optimal LDL: 110- 129 mg/dLBorderline High LDL: 130-159 mg/dLHigh LDL: 160-189 mg/dLVery High LDL: greater than or equal to 190 mg/dL HDL Cholesterol 34(L) >40 mg/dL [facility] Comment:Desirable HDL: great er than 40 mg/dL Note: This HDL assay may give artificially low results in patients with liver disease. 08/19/2024 8:35 AM EDT 08/19/2024 8:35 AM EDT us Generic External Data Provider LAB BLOOD ORDERAB LES Final Result [facility] [address] [place] [phone] * Albumin, Random Urine W/Creatinine (08/19/2024 8:29 AM EDT) Creatinine, Urine 218.70 mg/dL [facility] Microalbumin Urine 12.0 mg/L [facility] Microalbum Creatinine Ratio Ur 5.4 <30 ug/mg cr [facility] Comment:Albumin/Creatinine R atio Reference Ranges: Normal: < 30 ug/mg creatinine Microalbuminuria: 30 - 300 ug/mg creatinineClinical Albuminuria: > 300 ug/mg creatinine Urine 08/19/2024 8:29 AM EDT 08/19/2024 8:50 AM EDT Waleska Goldberg [facility] URINE ORDERABLES Final Res ult [facility] [address] [place] [phone] * (ABNORMAL) POCT HGB A1C (07/16/2024 4:31 PM EDT) Hemoglobin A1C 8.9(A) 4.0 - 6.0 % QC Media Lot # [id number] Lot# Expiration Date ,026 Blood 07/16/2024 4:31 PM EDT Waleska Goldberg [facility] POINT OF CARE TEST ENTER/EDIT ORDERABLES Final Result * (ABNORMAL) POCT Glucose (07/16/2024 4:28 PM EDT) Glucose Blood, POC 422(A) 60 - 200 mg/dL QC Media Lot # [id number] Lot# Expiration Date 732,025 Blood Capillary blood specimen / Unknown 07/16/2024 4:28 PM EDT Result [facility] Waleska Goldberg [facility] POINT OF CARE TEST ENTER/EDIT ORDERABLES Final Result * Referral to Urology (07/13/2024) Waleska Goldberg [facility] OUTPATIENT REFERRAL ORDERABLES Edited Result - Final * XR Foot 3+ Views Left (06/25/2024 8:54 AM EDT) Anatomical Region Laterality Modality Lower Extremities, Foot Left Radiogra phic Imaging 06/25/2024 8:54 AM EDT Narrative 06/25/2024 8:55 AM EDT ? [facility] ?[address] ?[place] [address] ?XRay Report ? Signed ? Patient: Mcadams Hickman,Celso ?MR#: [id number] ?? [id number] ? : 1965 ?Acct:[id number] ? Age/Sex: 59 / M ?ADM Date: 06/24/24 ? Loc: HO.XRAY ? Attending Dr: Chely BINGHAM ? Ordering Physician: Waleska Goldberg ?? Date of Service: 06/24/24 ?? Procedure(s): XR foot LT min 3V ?? Accession Number(s): [id number] ? cc: Waleska Goldberg ? CLINICAL HISTORY: [...] 06/25/24 0855 ? DD/ 0854 ? TD/TT: 06/25/24 0854 ? Marketing Manager: ? Procedure Note Esther, Image - 06/25/2024 [place] [address] XRay Report Signed Patient: Barrett Goldman [facility]#: [id number] : 1965Acct:[id number] Age/Sex: 59 / MADM Date: 06/24/24 Loc: DANIEL Attending Dr: Chely Randhawa INSTRUCTOR DANCING-C Ordering Physician: Waleska Goldberg Date of Service: 06/24/24 Procedure(s): XR foot LT min 3V Accession Number(s): [id number] cc: Waleska Goldberg CLINICAL HISTORY: 58 y [...] Mathews MD in OV> 06/25/24 0855 DD/ 0854 TD/TT: 06/25/24 0854 Marketing Manager: Waleska Goldberg CHIEF CONSTRUCTION INSPECTOR IMG XR PROCEDURES Final Result * Hm Colonoscopy (05/30/2022 9:04 PM EST) Historical Provider HEALTH MAINTENANCE Final Result from Last 3 Months or Most Recently Relevant to Health Maintenance Insurance [facility] STAND ADULT Care Teams Supervisor Varnish Relationship Specialty Start Date End Date Waleska Goldberg FNP [address] [place] [phone] PCP - General Family Medicine 12/12/21 Gloria Flores Lease AnalystCarton Packaging Machine Operator 03/13/23
--- OUTSIDE RECORDS SUMMARY | 2024-08-26 12:22 | XMS_ITS | Encounter Summary ---
Author Organization [employer] Address [address] [place] [address] Care Team Providers Care Coin Collector Name Role Phone Waleska Goldberg Primary Care Provider [phone] Reason for Visit * Reason Comments Med Refill Encounter Details Date Type Department Care Team (Late st Contact Info) Description 06/07/[address] [facility]S [address] [place], [place] [phone] Waleska Goldberg FNP [address] [place] [address] Fracture of left patella with routine healing [...] pt regarding message below via BLS ID# [id number]. Pt stated he has an appt scheduled [...] refill of Percocet. Called via BLS ID# [id number]. Also called pt on 06/01/24 advisingof the message from PCP on 06/01/24: Please let him know that short course of opioid was sent in with plan for no refills. He should hopefully be feeling better, but if not, will need to follow up for visit. Walk in [place] extended open tonight PRN. Thank you! Pt then verbalized understanding. Pt called again for a refill today. Stated he does not want to goto walk in [place], asked for a f/u appt with PCP which was scheduled for 07/16/24. Pt verbalized understanding. documented in this encounter Plan of Treatment Upcoming Encounters Date Type Department Care Team (Late st Contact Info) Description 10/04/2024 11:00 AM EDT Office Visit [facility] MED & PEDS [address] [place] [address] Waleska Goldberg FNP [address] [place] [address] 10/22/2024 11:30 AM EDT Office Visit [facility] MED & PEDS [address] [place] [address] Waleska Goldberg FNP [address] [place] [address] documented as of this encounter Visit Diagnoses Diagnosis Fracture of left patella with routine healing documented in this encounter Additional Health Concerns Assessment Noted Time PHQ-9 Depression Total Score: 6 07/30/19 24 10:53 AM EDT documented as of this encounter Care Teams Coin Collector Relationship Specialty Start Date End Date Waleska Goldberg FNP [address] [place] [phone] PCP - General Family Medicine 12/12/21 Gloria Flores Buckle GluerSand Buffer 03/13/23 documented as of this encounter
--- OUTSIDE RECORDS SUMMARY | 2024-08-26 12:22 | XMS_ITS | Clinical Summary ---
Author Organization [address] [facility] Address [address] [place] [address] Phone Care Team Providers Care Automobile Service Writer Name Role Phone Physician, Pcp Unknown Primary Care Provider Nasra vailable Social History Tobacco Use Types Packs/Day Years Used Date Smoking Tobacco: Never Assessed Sex and Gender Information Value Date Recorded Sex Assigned at Not on file Legal Sex Male 11:31 AM EDT Gender Identity Not on file Sexual Orientation Not on file Plan of Treatment Upcoming Encounters Date Type Department Care Team ([facility] Contact Info) Description 01/03/2025 10:00 AM EDT Consult Orthopedic Surgery - [place] [phone] [phone] Brian Clemons DPM [address] [address] Health Maintenance Due Date Last Done Comments DTaP,Tdap,and Td Vaccines (1 - Tdap) 1984 Hepatitis B Vaccines (1 of 3 - 19+ 3-dose series) 1984 Pneumococcal Vaccine: 50+ Ye ars (1 of 1 - PCV) 2015 Zoster Vaccines (1 of 2) 2015 COVID-19 Vaccine ( - 2023-2 5 season) 2023 Cholesterol Screening (Lipid Panel) 08/19/2024 Colorectal Cancer Screening: Colonoscopy 08/19/2024 Depression Screening 08/19/2024 HIV Screening 08/19/2024 Hepatitis C Screening 08/19/2024 Social Influencers of Health Screening 08/19/2024 Influenza Vaccine (Season Ended) 2024 RSV Immunization Adult Patie nts (1 - 1-dose 75+ series) 2040 HIB [...] on patient's age to complete this topic MMR Vaccines Aged Out No longer eligi ble based on patient's age to complete this topic Meningococcal ACWY Vaccine Aged Out N o longer eligible based on patient's age to complete this topic Meningococcal B Vaccine Aged Out No l onger eligible based on patient's age to complete this topic Pneumococcal Vaccine: Pediat rics (0 to 5 Years) and At-Risk Patients (6 to 64 Years) Aged Out No longer eligible b ased on patient's age to complete this topic RSV Immunization Patients Un mendoza 20 months Aged Out No longer eligible b ased on patient's age to complete this topic Varicella Vaccines Aged Out No longer eligible based on patient's age to complete this topic Insurance MEDICAID - [place] Care Teams Automobile Service Writer Relationship Specialty Start Date End Date Physician, Pcp Unknown PCP - General 08/20/24
--- OUTSIDE RECORDS SUMMARY | 2024-08-26 12:22 | XMS_ITS | Encounter Summary ---
Author Organization [employer] Address [address] [facility] [address] [place] [address] Care Team Providers Care Duct Layer Name Role Phone Waleska Goldberg Primary Care Provider [phone] Reason for Visit * Reason Onset Date Comments Hospital Follow-up 05/04/2024 Encounter Details Date Type Department Care Team ([facility] st Contact Info) Description 05/04/2024 Telephone [facility] [address] [place] [address] Waleska Goldberg FNP [address] [place], [place] [phone] Hospital Follow-up Social History Tobacco Use Types [...] from pt requesting a HDF appt. Hospital: [facility] Date of admission: 04/29/2024 Discharge date: 05/01/2024 Diagnosed: Kidney stones , pt satated that at ER they placed a godfrey that has to be remove *Send message to [place] Clinical Care Coordinators documented in this encounter Plan of Treatment Upcoming Encounters Date Type Department Care Team ([facility] st Contact Info) Description 10/04/2024 11:00 AM EDT Office Visit [facility] MED & PEDS [address] [place] [address] Waleska Goldberg FNP [address] [place] [address] 10/22/2024 11:30 AM EDT Office Visit [facility] MED & PEDS [address] [place] [address] Waleska Goldberg FNP [address] [place] [address] documented as of this encounter Visit Diagnoses Not on filedocumented in this encounter Additional Health Concerns Assessment Noted Time PHQ-9 Depression Total Score: 6 07/30/19 24 10:53 AM EDT documented as of this encounter Care Teams Duct Layer Relationship Specialty Start Date End Date Waleska Goldberg FNP [address] [place] [address] PCP - General Family Medicine 12/12/21 Gloria Flores Tread Tuber Machine OperatorAsphalt Distributor Tender 03/13/23 documented as of this encounter
--- OUTSIDE RECORDS SUMMARY | 2024-08-26 12:22 | XMS_ITS ---
Author Organization [employer] Address [address] [facility] 7t [place] [address] Care Team Providers Care Prop Cutter Name Role Phone Waleska Goldberg Primary Care Provider [phone] CM Complex Status:Enrolled (Active) Start date:07/26/2024 Enrollment date:08/10/2024 Enrollment reason:ADT Feed Overview Adt- [facility] ED 07/24/24. Outreach in progress on laura. Case Team Name Relationship Phone Brittanie Gonzalez RN(Responsible Staff) Registered Nurse [phone] Continued Care and Services Coordination
--- OUTSIDE RECORDS SUMMARY | 2024-08-26 12:22 | XMS_ITS | Encounter Summary ---
Author Organization [employer] Address [address] [facility] [place] [address] Care Team Providers Care Digital Imaging Technician Name Role Phone Waleska Goldberg Primary Care Provider [phone] Reason for Visit * Reason Onset Date Comments Med Refill 05/06/2024 Encounter Details Date Type Department Care Team ([facility] st Contact Info) Description 05/06/2024 Telephone [facility] [address] [place] [address] Waleska Goldberg FNP [address] [place] [address] Med Refill Social History Tobacco Use Types [...] 10-325 MG tablet To be sent to: [facility] - [place], [place] - [address] [facility] documented in this encounter Plan of Treatment Upcoming Encounters Date Type Department Care Team (Late st Contact Info) Description 10/04/2024 11:00 AM EDT Office Visit [facility] MED & PEDS [address] [place] [address] Waleska Goldberg FNP [address] [place] [address] 10/22/2024 11:30 AM EDT Office Visit [facility] MED & PEDS [address] [place] [address] Waleska Goldberg FNP [address] [place] [address] documented as of this encounter Visit Diagnoses Not on filedocumented in this encounter Additional Health Concerns Assessment Noted Time PHQ-9 Depression Total Score: 6 07/30/19 24 10:53 AM EDT documented as of this encounter Care Teams Digital Imaging Technician Relationship Specialty Start Date End Date Waleska Goldberg FNP [address] [place] [address] PCP - General Family Medicine 12/12/21 Gloria Flores Instrumentation SpecialistManager Of It 03/13/23 documented as of this encounter
--- OUTSIDE RECORDS SUMMARY | 2024-08-26 12:22 | XMS_ITS ---
Author Organization [employer] Address [address] [facility] 7t [place] [address] Care Team Providers Care Sales Utility Representative Name Role Phone Waleksa Goldberg Primary Care Provider [phone] CHW Complex Status:Enrolled (Active) Start date:07/28/2024 Enrollment date:08/09/2024 Enrollment reason:ADT Feed Overview Adt- [facility] ED 07/24/24. Case Team Name Relationship Phone Ben Wilkinson(Responsible Staff) [phone] Continued Care and Services Coordination
--- OUTSIDE RECORDS SUMMARY | 2024-08-26 12:22 | XMS_ITS | Encounter Summary ---
Author Organization [employer] Address [address] [facility] 7t [place] [address] Care Team Providers Care Critical Care Unit Nurse Name Role Phone Waleska Goldberg Primary Care Provider [phone] Encounter Details Date Type Department Care Team (Latest Contact Info) Description 03/24/2019 Abstract [facility] CONVERSIONS Dental, Provider, DDS Social [...] 10/04/2024 11:00 AM EDT Office Visit [facility] MED [facility] PEDS [address] [place] [address] Waleska Goldberg FNP [address] [place] [address] 10/22/2024 11:30 AM EDT Office Visit [facility] PED[facility] [address] [place] [address] Waleska Goldberg FNP [address] [place] [address] documented as of this encounter Visit Diagnoses Not on filedocumented in this encounter Care Teams Critical Care Unit Nurse Relationship Specialty Start Date End Date Waleska Goldberg FNP [address] [place] [address] PCP - General Family Medicine 12/12/21 Gloria Flores Second StewardManager Finance 03/13/23 documented as of this encounter
--- OUTSIDE RECORDS SUMMARY | 2024-08-26 12:22 | XMS_ITS | Encounter Summary ---
Author Organization [employer] Address [address] [facility] 7t [place] [address] Care Team Providers Care Plate Finisher Name Role Phone Waleska Goldberg Primary Care Provider [phone] Reason for Visit * Reason Comments Care Coordination C3CM/CHW Ben MARSHALL SDOH F/U_LVM Encounter Details Date Type Department Care Team (Latest Contact Info) Description 08/23/2024 Patient Outreach [facility] [address] [place] [address] Waleska Goldberg FNP [address] [place] [address] Care Coordination (C3CM/MARBELLA MARSHALL SDOH F/U_LVM) Social History Tobacco Use Types Packs/Day Years [...] as of this encounter Progress Notes * Ben Wilkinson - 08/23/2024 1:34 PM EDT CHW Ben Wilkinson placed outbound call to patient for follow up call on SDOH needs. No answer at this time. CHW LVM introducing herself from [facility] CM Department. Requested call back.CHW reinforced direct contact information or CM for any additional questions or concerns and extended clinic hours on Mondays and Wednesdays, and Walk-In Urgent Care Located in [facility] of [facility]. Patient provided with after-hours line for [facility], , which offer night time triage service and option to transfer to production posting clerk provider if needed. CHW will attempt anotherfollow up call within 10 days. documented in this encounter Plan of Treatment Upcoming Encounters Date Type Department Care Team ([facility] st Contact Info) Description 10/04/2024 11:00 AM EDT Office Visit [facility] MED [facility] PEDS [address] [place] [address] Waleska Goldberg FNP [address] [place], [place] [phone] 10/22/2024 11:30 AM EDT Office Visit [facility] MED & PEDS [address] [place] [address] Waleska Goldberg FNP [address] [place] [address] documented as of this encounter Visit Diagnoses Not on filedocumented in this encounter Additional Health Concerns Assessment Noted Time PHQ-9 Depression Total Score: 0 08/11/19 25 11:33 AM EDT documented as of this encounter Care Teams Plate Finisher Relationship Specialty Start Date End Date Waleska Goldberg FNP [address] [place] [address] PCP - General Family Medicine 12/12/21 Gloria Flores [place] Home DemonstratorFire Assistant 03/13/23 documented as of this encounter
--- OUTSIDE RECORDS SUMMARY | 2024-08-26 12:22 | XMS_ITS | Encounter Summary ---
Author Organization [employer] Address [address] [facility] [address] [facility] [address] [address] 7t [place] [address] Care Team Providers Care Supervisor Metalizing Name Role Phone Waleska Goldberg Primary Care Provider [phone] Encounter Details Date Type Department Care Team ([facility] st Contact Info) Description 08/25/2024 Telephone [facility] [address] [place] [address] Waleska Goldberg FNP [address] [place], [place] [phone] Social History Tobacco Use Types Packs/Day Years [...] encounter Miscellaneous Notes * Telephone Encounter - Jemran Mullins - 08/25/2024 11:45 AM EDT Tc from [facility] with [facility] requesting existing referral to be sent with updated date information for Physical Therapy - Diagnosis: Fracture of left patella with routine healing (S82.002D) [facility] [address] [place] [address] documented in this encounter Plan of Treatment Upcoming Encounters Date Type Department Care Team ([facility] st Contact Info) Description 10/04/2024 11:00 AM EDT Office Visit [facility] [address] [place] [address] Waleska Goldberg FNP [address] [place] [address] 10/22/2024 11:30 AM EDT Office Visit [facility] [address] [place] [address] Waleska Goldberg FNP [address] [place] [address] documented as of this encounter Visit Diagnoses Not on filedocumented in this encounter Additional Health Concerns Assessment Noted Time PHQ-9 Depression Total Score: 0 08/11/19 25 11:33 AM EDT documented as of this encounter Care Teams Supervisor Metalizing Relationship Specialty Start Date End Date Waleska Goldberg FNP [address] [place] [address] PCP - General Family Medicine 12/12/21 Gloria Flores Residential MonitorGrain Grader 03/13/23 documented as of this encounter
--- OUTSIDE RECORDS SUMMARY | 2024-08-26 12:22 | XMS_ITS | Encounter Summary ---
Author Organization [employer] Address [address] [facility] [address] [place] [address] Care Team Providers Care Commercial Finance Analyst Name Role Phone Waleska Goldberg Primary Care Provider [phone] Reason for Visit * Reason Onset Date Comments Referral 06/30/2024 Encounter Details Date Type Department Care Team ([facility] st Contact Info) Description 06/30/2024 Telephone [facility]S [address] [place], [place] [phone] Waleska Goldberg FNP [address] [place] [address] Referral Social History Tobacco Use Types Packs/Day [...] PM EDT Insurance authorization for 20 visits #[id number] faxed to Jan Shen @ [phone]. * Telephone Encounter - Yvonne Palomino - 06/30/2024 12:15 PM EDT Tc from pt calling to inform was told to contact PCP to request more visit for physical therapy. Symptoms and location is still the same. Any further questions please contact pt to clarify. documented in this encounter Plan of Treatment Upcoming Encounters Date Type Department Care Team ([facility] st Contact Info) Description 10/04/2024 11:00 AM EDT Office Visit [facility] PEDS [address] [place] [address] Waleska Goldberg FNP [address] [place] [address] 10/22/2024 11:30 AM EDT Office Visit [facility] MED & PEDS [address] [place] [address] Waleska Goldberg FNP [address] [place] [address] documented as of this encounter Visit Diagnoses Not on filedocumented in this encounter Additional Health Concerns Assessment Noted Time PHQ-9 Depression Total Score: 6 07/30/19 24 10:53 AM EDT documented as of this encounter Care Teams Commercial Finance Analyst Relationship Specialty Start Date End Date Waleska Goldberg FNP [address] [place] [address] PCP - General Family Medicine 12/12/21 Gloria Flores Training RepresentativeBag Presser 03/13/23 documented as of this encounter
--- OUTSIDE RECORDS SUMMARY | 2024-08-26 12:23 | XMS_ITS | Encounter Summary ---
Author Organization [employer] Address [address] [place] [address] Care Team Providers Care Cryogenics Engineer Name Role Phone Waleska Goldberg LADLE FILLER Primary Care Provider [phone] Encounter Details Date Type Department Care Team ([facility] st Contact Info) Description 04/16/2024 Orders Only [facility] MED & PEDS [address] [place], [place] [phone] ProviderAleisha MD Social History Tobacco Use Types [...] 11:00 AM EDT Office Visit [facility] MED & PEDS [address] [place] [address] Waleska Goldberg FNP [address] [place] [address] 10/22/2024 11:30 AM EDT Office Visit [facility] MED & PEDS [address] [place] [address] Waleska Goldberg FNP [address] [place] [address] documented as of this encounter Procedures Procedure [...] documented as of this encounter Care Teams Cryogenics Engineer Relationship Specialty Start Date End Date Waleska Goldberg FNP [address] [place] [address] PCP - General Family Medicine 12/12/21 Gloria Flores Steel GrinderSteel Cutter 03/13/23 documented as of this encounter
[2024-09-01 18:58] LABS: Calprotectin, Fecal 40 mcg/g
== END 2024-08-26 11:10 | disposition home or self-care (01) ==
LOC: HO.LNP 11:09
PROVIDERS: Visit Provider Nurse Practitioner Family
DX: K59.00 Constipation, unspecified (principal)
CPT/HCPCS: 83993

== ENCOUNTER 2024-09-07 23:34 | Emergency (ER) | payer MEDICAID, SELFPAY ==
[2024-09-07 23:35] VITALS: BP 112/68; PULSE 70; RESP 20; TEMP 36.4; O2SAT 99; BMI 26.5
[2024-09-08 00:11] LABS: MANUAL DIFF FLAG NO
[2024-09-08 00:12] LABS: Basophils Percent Auto 0.6 % (0-2); Eosinophils Absolute Auto 0.2 X10*3/uL (0.0-0.4); Eosinophils Percent Auto 4.3 % (0-4); Hemoglobin 14.5 g/dl (14.0-18.0); Imm Gran Abs Auto 0.01 X10*3/uL (0.00-0.03); Imm Gran Pct Auto 0.2 % (0.0-0.4); Lymphocytes Absolute Auto 1.9 X10*3/uL (1.2-4.9); Lymphocytes Percent Auto 36.1 % (20-40); Mean Corpuscular HGB Conc 35.4 g/dl (31.0-36.0); Mean Corpuscular Hemoglobin 31.7 pg (27.0-33.0); Mean Corpuscular Volume 89.7 fL (80.0-98.0); Mean Platelet Volume 10.6 fL (9.4-12.4); Monocytes Absolute Auto 0.5 X10*3/uL (0.1-1.2); Neutrophils Absolute Auto 2.7 x10*3/uL (2.0-8.3); Neutrophils Percent Auto 49.8 % (45-73); Platelet Count 164 X10*3/uL (160-400); Red Blood Count 4.57 X10*6/uL (4.60-5.80); Red Cell Distribution Width 12.6 % (11.0-16.0); White Blood Count 5.4 X10*3/uL (4.8-10.8)
[2024-09-08 00:28] LABS: Alanine Aminotransferase 24 U/L (0-40); Albumin Level 4.1 g/dL (3.5-5.0); Alkaline Phosphatase 143 U/L (39-117); Anion Gap 11 (12-20); Aspartate Amino Transferase 22 U/L (5-37); Bilirubin Total 1.6 mg/dL (0.0-1.0); Blood Urea Nitrogen 28 mg/dL (9-16); Calcium 8.8 mg/dL (8.4-10.2); Carbon Dioxide 22 mmol/L (22-29); Chloride 107 mmol/L (96-108); Creatinine Clr Calc Pharmacy 62.5; Estimated Glomerular Filt Rate > 60; Glucose Random 306 mg/dL (60-115); Potassium 3.3 mmol/L (3.3-5.1); Sodium 137 mmol/L (135-145); Total Protein 6.4 g/dL (6.5-8.0)
[2024-09-08 01:03] LABS: Appearance Urine Clear; Color Urine Yellow; Glucose Urine UA >=1000 mg/dL (Negative); Leukocyte Esterase Urine Negative (Negative); Nitrite Urine Negative (Negative); Specific Gravity - Urine >= 1.030 (1.005-1.025); UMIC TRIGGER UACC YES; Urine Blood Negative (Negative); Urine Ketones Trace mg/dL (Negative); Urine Protein Negative (Neg-Trace)
[2024-09-08 01:07] LABS: Bacteria Urine None Seen (None Seen); Hyaline Casts Urine 0-2 /LPF (0-2); RBC Urine 0-2 /HPF (0-2); Squamous Epithelial Cell Urine 0-2 /HPF (0-2); WBC Urine 0-5 /HPF (0-5)
== END 2024-09-08 02:26 | disposition left against medical advice (07) ==
PROVIDERS: Emergency Provider Emergency Medicine
DX: R10.9 Unspecified abdominal pain (principal); Z87.442 Personal history of urinary calculi; R33.9 Retention of urine, unspecified; Z53.21 Procedure and treatment not carried out due to patient leaving prior to being seen by health care provider
CPT/HCPCS: 36415; 80053; 81001; 85025; 99281; 99282

== ENCOUNTER 2024-09-30 08:41 | Outpatient (AMB) | payer MEDICAID, SELFPAY ==
--- NOTE | 2024-09-30 08:42 | A.OFFVIS_ITS ---
Vital Signs 09/30/24 08:46 Height 5 ft 8 in Weight 171 lb 8.314 oz BMI 26.1 BP 116/70 Blood Pressure Location Lt brachial Position Sitting Pulse 83 Pulse Source Pulse Oximeter Intake Visit Reasons: 3m follow up Intake Note: 3 mth f/up Business Solutions Architect Required: Yes Business Solutions Architect Language: Strategy Manager Name: [email or web address] Accompanied by: Self / Same As Patient Allergies No Known Allergies (No Known Allergies*) Allergy (Verified 09/07/24 23:37) Medication List - Last Reconciled 09/30/24 by ZACHERY Duval acetaminophen (Tylenol) 325 mg PO Q4H PRN acetaminophen (Tylenol Extra Strength) 500 mg PO Q8H PRN ammonium lactate 12% 1 appl topical BID aspirin 81 mg PO QAM atorvastatin 80 mg PO DAILY bisacodyl 5 mg PO ONCE 1 day blood sugar diagnostic (FreeStyle Lite Strips) 1 strip miscellaneous QID PRN blood-glucose meter (FreeStyle Martin Lite kit) 1 ea miscellaneous DIRECTED calcium polycarbophil (Fiber-Lax) 625 mg PO TID carvedilol 3.125 mg PO BID clopidogrel 75 mg PO DAILY diclofenac sodium 1% 2 grams topical QID 30 days dicyclomine 20 mg PO QID PRN docusate sodium (Stool Softener) 200 mg (2 x 100 mg) PO BEDTIME doxazosin 8 mg (2 x 4 mg) PO BEDTIME 90 days evolocumab (Repatha SureClick) 140 mg subcut Q2W ezetimibe (Zetia) 10 mg PO DAILY finasteride 5 mg PO DAILY 90 days flash glucose scanning reader (FreeStyle Alfredo 2 Commercial Point) As directed flash glucose sensor (FreeStyle Alfredo 2 Sensor kit) As directed every 2 weeks fluticasone propionate 50 mcg/actuation 1 - 2 sprays intranasal DAILY PRN furosemide (Lasix) 20 mg PO DAILY 90 days gabapentin 800 mg PO BID hydrocortisone 2.5% (Proctozone-HC) 1 appl PA BID PRN ibuprofen 600 mg PO Q6H PRN insulin aspart U-100 (Novolog FlexPen U-100 Insulin aspart) 6-8 units with meals, 2 units with snack subcut 4 times a day; insulin glargine (Lantus Solostar U-100 Insulin) 30 units (0.3 mL) subcut DAILY isosorbide mononitrate ER 60 mg PO DAILY lancets (TRUEplus Lancets) 1 gauge miscellaneous QID lidocaine 5% 1 patch topical DAILY PRN lidocaine 5% 1 patch topical DAILY lisinopril 2.5 mg PO DAILY magnesium citrate 300 mL PO DAILY PRN melatonin 5 mg (2 tab) PO once; metformin 1,000 mg (2 x 500 mg) PO BID 30 days methocarbamol 1,500 mg (2 x 750 mg) PO Q8H naproxen 500 mg PO nitroglycerin 0.4 mg sublingual Q5M PRN pen needle, diabetic (Pentips Pen Needle) USE SIX TIMES DAILY DIRECTED polyethylene glycol 3350 (Miralax) 17 grams PO DAILY 30 days polyethylene glycol 3350 (Miralax) 238 grams PO ONCE potassium citrate ER 20 mEq (2 x 10 mEq (1,080 mg)) PO BID 90 days pregabalin 100 mg PO ONCE ranolazine ER 500 mg PO BID tadalafil 10 mg PO DAILY 90 days tizanidine 4 mg PO TID HPI HPI 3m follow up: Details: Barrett is a 59-year-old male with past medical history of hypertension, hyperlipidemia, diabetes, CAD, 5 vessel coronary artery bypass grafting 2019, ischemic cardiomyopathy who recent had echocardiogram and now presents for follow-up. Today he reports that he does get some discomfort in the chest which he vaguely describes. It seems that his symptom mostly occurs when he takes a deep breath in or does activities that require him to breathe more deeply. He did undergo a cardiac catheterization for this symptom 02/06/2023 which showed patent grafts and no changes. He does report some fatigue and admits to being mostly sedentary. He has shortness of breath with exertion which is not new. He denies shortness of breath at rest, PND, orthopnea or edema. No heart palpitations, lightheadedness, presyncope, syncope, falls. Taking all meds as directed but is unsure of what they are as he uses a pill pack. He did not start the shots to lower his cholesterol. Did not obtain from pharmacy yet. He likes to carry NTG tablets with him in the even of emergency. [facility] Medical History History of colon polyps Ischemic cardiomyopathy Atherosclerotic cardiovascular disease History of pancreatitis Hepatitis B Hepatitis C Chronic HFrEF (heart failure with reduced ejection fraction) Cardiomyopathy Type 2 diabetes mellitus with hyperglycemia, with long-term current use of insulin Type 2 diabetes mellitus with diabetic polyneuropathy Hyperlipidemia LDL goal <70 Essential hypertension Myocardial infarction Surgical History Hx of colonoscopy History of appendectomy Hx of heart artery stent H/O coronary artery bypass surgery H/O cardiac catheterization Family History Mother Diabetes Social History Household Members: Spouse Alcohol intake: never Patient Tobacco Use Status: Never used Tobacco Current occupational status: unemployed Review of Systems Const All systems reviewed & are unremarkable except as noted in HPI and below Denies chills, Denies fatigue, Denies fever(s), Denies frequent falls, Denies weakness, Denies weight gain and Denies weight loss ENT Denies dizziness Card Denies chest pain, Denies leg edema, Denies lightheadedness, Denies palpitations, Denies dyspnea and Denies dyspnea on exertion Resp Denies cough, Denies dyspnea and Denies dyspnea on exertion GI Denies hematochezia Musc Denies abnormal gait, Denies muscle weakness, Denies numbness, Denies radiating pain into limb and Denies tingling Neuro Denies abnormal gait, Denies dizziness, Denies frequent falls, Denies numbness, Denies tingling and Denies weakness Endo Denies fatigue and Denies palpitations Physical Exam Vital Signs: BMI result Body Mass Index 26.1 Const General: cooperative, healthy appearing, comfortable and no acute distress Orientation/consciousness: patient oriented x3 Neck Neck: Yes normal visual inspection and Yes no JVD Resp Effort & Inspection: normal respiratory effort Auscultation: clear to auscultation bilaterally, no crackles, no rales, no rhonchi and no wheezes Cardio Jugular venous distension: no JVD Rate: regular rate Rhythm: regular rhythm Heart sounds: S1 normal heart sound present, S2 normal heart sound present, no murmurs and no rubs Neuro General: patient oriented x3 Extrem General: Yes normal to inspection, No no pedal edema and No calf tenderness Psych Appearance: grossly normal Mental Status: mental status grossly normal Speech and movement: Normal speech and movement present Assessment & Plan Assessment & Plan (1) Atherosclerotic cardiovascular disease: Code(s): I25.10 - Atherosclerotic heart disease of [place] coronary artery without angina pectoris Category: Medical Plan: History of CAD with 5 vessel coronary artery bypass grafting 2019. Cardiac catheterization for reports of chest discomfort 02/06/2023 showed patent grafts, known occlusion of the distal RCA, no changes noted. He is still reporting discomfort in his chest which sounds most like chest wall discomfort with deep inspiration. An echocardiogram was done on 07/05/24 showing EF 45-50% with regio nal wall motion abnormality this is unchanged from echocardiogram 08/07/2021. EKG done last visit showed sinus rhythm with right bundle branch block, prior inferior infarct, rate 85. At this time will continue med management for stable CAD. Signs and symptoms of angina reviewed with him. Continue aspirin indefinitely. Continue high-dose atorvastatin and Zetia with ideal LDL goal less than 70. Start Repatha. Continue carvedilol, isosorbide. Will need to clarify his meds with his pharmacy as he is unsure of what they are. Cardiology follow-up 6 months, sooner if needed. (2) H/O coronary artery bypass surgery: Comment: 2019, john to LAD, SVG from aorta right to right PDA, SVG from aorta left to 1st OM, SVG from aorta left to OM 2, SVG from aorta left to 1st diagonal Code(s): Z95.1 - Presence of aortocoronary bypass graft Category: Surgical Plan: all grafts patent on cardiac catheterization 02/06/2023 (3) Precordial chest pain: Code(s): R07.2 - Precordial pain Category: Medical Plan: as above. cardiac catheterization for this discomfort 01/2023 showed patent grafts and no change in anatomy. Recent echo unchanged from 2021. (4) Ischemic cardiomyopathy: Code(s): I25.5 - Ischemic cardiomyopathy Category: Medical Plan: Last echocardiogram showing EF 45-50 %. No signs of heart failure on examination. He is on carvedilol and low-dose lisinopril for neurohormonal modulation. Blood pressure controlled. No med changes made. (5) Hyperlipidemia LDL goal <70: Code(s): E78.5 - Hyperlipidemia, unspecified Category: Medical Plan: [place] LDL goal less than 70. Recent lipids showed LDL 86. Continue high-dose atorvastatin and Zetia. Start Repatha. - plan on fasting lipid 6-8 weeks after start of Repatha. (6) Essential hypertension: Code(s): I10 - Essential (primary) hypertension Category: Medical Plan: Blood pressure goal less than 130/80. Currently controlled. No med changes made. Plan I discussed with the patient the importance of continuing current medications to manage his cardiovascular conditions. We reviewed the plan for evolocumab injections to address hyperlipidemia and the need to check with the pharmacy for availability. I advised the patient to monitor for any new or worsening chest discomfort and the PRN use nitroglycerin as needed. A follow-up appointment was scheduled for six months, with instructions to return sooner if symptoms change. Medications: Refilled nitroglycerin do not exceed 3 doses per episode 0.4 mg sublingual Q5M PRN 25 tabs 1RF angina pectoris I25.10 - Atherosclerotic heart disease of [place] coronary artery without angina pectoris Patient Instructions: - Continue taking all prescribed medications as directed. - Check with your pharmacy about the evolocumab injection. - Monitor for any new or worsening chest discomfort. - Follow up in six months or sooner if symptoms change. Patient was informed and verbally consented to the use of an ambient scribe for clinic note documentation during this visit. Visit time spent on chart review, interview, assessment, orders, documentation. Coding Level of Care Code Est Pt Level 4 (02648) Complex EM visit Add On G2211 Diagnoses Atherosclerotic cardiovascular disease I25.10 H/O coronary artery bypass surgery Z95.1 Precordial chest pain R07.2 Ischemic cardiomyopathy I25.5 Hyperlipidemia LDL goal <70 E78.5 Essential hypertension I10 Time Spent (min) 28
[2024-09-30 08:46] VITALS: BP 116/70; PULSE 83; BMI 26.1
--- OUTSIDE RECORDS SUMMARY | 2024-09-30 09:04 | XMS_ITS | Encounter Summary ---
Author Organization [employer] Address [address] [facility] [facility] [address] [place] [address] Care Team Providers Care Zoo Keeper Name Role Phone Waleska Goldberg Primary Care Provider [phone] Reason for Visit * Reason Onset Date Comments Referral 06/30/2024 Encounter Details Date Type Department Care Team ([facility] st Contact Info) Description 06/30/2024 Telephone [facility] MED & PEDS [address] [place], [place] [phone] Waleska Goldberg FNP [address] [place] [address] Referral Social History Tobacco Use Types Packs/Day [...] PM EDT Insurance authorization for 20 visits #[id number] faxed to Jan Shen @ [phone]. * Telephone Encounter - Yvonne Palomino - 06/30/2024 12:15 PM EDT Tc from pt calling to inform was told to contact PCP to request more visit for physical therapy. Symptoms and location is still the same. Any further questions please contact pt to clarify. documented in this encounter Plan of Treatment Upcoming Encounters Date Type Department Care Team ([facility] st Contact Info) Description 10/04/2024 11:00 AM EDT Office Visit [facility] MED & PEDS [address] [place] [address] Waleska Goldberg FNP [address] [place] [address] 10/22/2024 11:30 AM EDT Office Visit [facility] MED & PEDS [address] [place] [address] Waleska Goldberg FNP [address] [place] [address] documented as of this encounter Visit Diagnoses Not on filedocumented in this encounter Additional Health Concerns Assessment Noted Time PHQ-9 Depression Total Score: 6 07/30/19 24 10:53 AM EDT documented as of this encounter Care Teams Zoo Keeper Relationship Specialty Start Date End Date Waleska Goldberg FNP [address] [place] [address] PCP - General Family Medicine 12/12/21 Gloria Flores Boarding Kennel Or Cattery OperatorMachine Compositor 03/13/23 documented as of this encounter
== END 2024-09-30 09:22 | disposition home or self-care (01) ==
PROVIDERS: Visit Provider Nurse Practitioner Family
DX: I25.10 Atherosclerotic heart disease of native coronary artery without angina pectoris (principal); Z95.1 Presence of aortocoronary bypass graft; R07.2 Precordial pain; I25.5 Ischemic cardiomyopathy; E78.5 Hyperlipidemia, unspecified; I10 Essential (primary) hypertension
CPT/HCPCS: 99214

== ENCOUNTER → 2024-09-30 08:41 | Outpatient (BNVA) | payer MEDICAID, SELFPAY | PROVIDERS: Visit Provider Nurse Practitioner Family | DX: I25.10 Atherosclerotic heart disease of native coronary artery without angina pectoris (principal); Z95.1 Presence of aortocoronary bypass graft; R07.2 Precordial pain; I25.5 Ischemic cardiomyopathy; E78.5 Hyperlipidemia, unspecified; I10 Essential (primary) hypertension | CPT/HCPCS: 99212 ==

== ENCOUNTER 2024-10-04 14:04 | Outpatient (REF) | payer MEDICAID, SELFPAY ==
--- NOTE | ~2024-10-04 | US_ITS ---
EXAMINATION: US TRIPLEX LOWER EXTREMITY, BILATERAL CLINICAL INFORMATION: Pain, both lower extremities. COMPARISON: None available. TECHNIQUE: Color-flow triplex imaging with spectral analysis and compression Doppler were performed on the bilateral lower extremities. FINDINGS: Respiratory variation, normal compression and augmented flow are present in the interrogated common femoral vein, superficial femoral vein, profunda femoral vein, popliteal vein and midcalf peroneal and posterior tibial venous segments, bilaterally. There is no Martinez's cyst. US/US venous duplex LE BI IMPRESSION: No acute deep venous thrombosis interrogated veins, bilateral lower extremities. Negative for DVT. Electronically signed by: Kane Moncada MD 10/04/2024 03:31 PM EDT
--- OUTSIDE RECORDS SUMMARY | 2024-10-04 15:40 | XMS_ITS | Encounter Summary ---
Author Organization [employer] Address [address] [facility] [address] [place] [address] Care Team Providers Care Lead Qa Analyst Name Role Phone Waleska Goldberg Primary Care Provider [phone] Reason for Visit * Reason Onset Date Comments Referral 06/30/2024 Encounter Details Date Type Department Care Team ([facility] st Contact Info) Description 06/30/2024 Telephone [facility] MED & PEDS [address] [place], [place] [phone] Waleska Goldberg FNP [address] [place] [address] Referral Social History Tobacco Use Types Packs/Day [...] PM EDT Insurance authorization for 20 visits #[id number] faxed to Jan Shen @ [phone]. * Telephone Encounter - Yvonne Palomino - 06/30/2024 12:15 PM EDT Tc from pt calling to inform was told to contact PCP to request more visit for physical therapy. Symptoms and location is still the same. Any further questions please contact pt to clarify. documented in this encounter Plan of Treatment Upcoming Encounters Date Type Department Care Team ([facility] st Contact Info) Description 10/22/2024 11:30 AM EDT Office Visit [facility] MED & PEDS [address] [place] [address] Waleska Goldberg FNP [address] [place] [address] documented as of this encounter Visit Diagnoses Not on filedocumented in this encounter Additional Health Concerns Assessment Noted Time PHQ-9 Depression Total Score: 6 07/30/19 24 10:53 AM EDT documented as of this encounter Care Teams Lead Qa Analyst Relationship Specialty Start Date End Date Waleska Goldberg FNP [address] [place] [address] PCP - General Family Medicine 12/12/21 Gloria Flores Building And Construction ManagerCow Buyer 03/13/23 documented as of this encounter
== END 2024-10-04 14:05 | disposition home or self-care (01) ==
LOC: HO.US 14:04
PROVIDERS: Visit Provider Registered Nurse
DX: R09.89 Other specified symptoms and signs involving the circulatory and respiratory systems (principal)
CPT/HCPCS: 93970

== ENCOUNTER → 2024-10-04 14:33 | Outpatient (BNV) | payer MEDICAID, SELFPAY | PROVIDERS: Visit Provider Radiology Diagnostic Radiology | DX: M79.604 Pain in right leg (principal); M79.605 Pain in left leg | CPT/HCPCS: 93970 ==

== ENCOUNTER 2024-10-06 07:58 | Outpatient (REF) | payer MEDICAID, SELFPAY ==
--- NOTE | ~2024-10-06 | XR_ITS ---
EXAMINATION: XR HAND 3 OR MORE VIEWS RIGHT HISTORY: M79.641 - Pain in right hand COMPARISON: Comparison is made with the prior examination dated 08/19/2024. FINDINGS: Four views of the right hand are submitted. Osseous mineralization is normal. Again seen is a chronic deformity of the 5th metacarpal. No acute fracture or dislocation is seen. There is mild osteoarthritis of the PIP and DIP joints. Again seen is a tiny metallic foreign body in the volar soft tissues at the level of the distal radial metaphysis. There are vascular calcifications. XR/XR hand RT min 3V IMPRESSION: Old healed fracture deformity of the 5th metacarpal. 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 Electronically signed by: Darnell Lovell MD 10/06/2024 09:26 AM EDT
--- OUTSIDE RECORDS SUMMARY | 2024-10-06 08:04 | XMS_ITS | Encounter Summary ---
Author Organization [employer] Address [address] [facility] [address] [place] [address] Care Team Providers Care Watch And Clock Repairer Name Role Phone Waleska Goldberg Primary Care Provider [phone] Reason for Visit * Reason Onset Date Comments Referral 06/30/2024 Encounter Details Date Type Department Care Team ([facility] st Contact Info) Description 06/30/2024 Telephone [facility] MED [facility] PEDS [address] [place], [place] [phone] Waleska Goldberg FNP [address] [place] [address] Referral Social History Tobacco Use Types Packs/Day [...] PM EDT Insurance authorization for 20 visits #[id number] faxed to Jan Shen @ [phone]. * Telephone Encounter - Yvonne Palomino - [...] Description 10/22/2024 11:30 AM EDT Office Visit [facility] MED & PEDS [address] [place] [address] Waleska Goldberg FNP [address] [place] [address] documented as of this encounter Visit Diagnoses Not on filedocumented in this encounter Additional Health Concerns Assessment Noted Time PHQ-9 Depression Total Score: 6 07/30/19 24 10:53 AM EDT documented as of this encounter Care Teams Watch And Clock Repairer Relationship Specialty Start Date End Date Waleska Goldberg FNP [address] [place] [address] PCP - General Family Medicine 12/12/21 Gloria Flores Rn OrthoLog Cooker 03/13/23 documented as of this encounter
== END 2024-10-06 07:59 | disposition home or self-care (01) ==
LOC: HO.HOSX 07:58
DX: M65.311 Trigger thumb, right thumb (principal)
CPT/HCPCS: 73130; 99212

== ENCOUNTER 2024-10-06 08:51 | Outpatient (AMB) | payer MEDICAID, SELFPAY ==
[2024-10-06 09:05] VITALS: BMI 26.0
--- NOTE | 2024-10-06 09:05 | A.OFFVIS_ITS ---
Vital Signs 10/06/24 09:05 Height 5 ft 8 in Weight 171 lb BMI 26.0 Intake Visit Reasons: New Prob: right hand pain s/p fall Intake Note: Barrett is a 59 year old right and dominant male who presents today for a new problem visit for evaluation of right hand pain s/p fall. Patient reports while at home he tripped and fell, putting all weight on hand. Patient states he is having locking and catching in his IP joint on thumb, pain at the base of his CMC joint, numbness and tingling. States he is using a stress ball for therapy Denies P.T/O.T . Ocean Freight Agent Required: Yes Ocean Freight Agent Name: Emperatriz GUPTA/SAMM Allergies No Known Allergies (No Known Allergies*) Allergy (Verified 10/06/24 09:12) HPI HPI New Prob: right hand pain s/p fall: Details: Barrett is a 59 year old right and dominant male who presents today for a new problem visit for evaluation of right hand pain s/p fall. Patient reports while at home he tripped and fell, putting all weight on hand. Patient states he is having locking and catching in his IP joint on thumb, pain at the base of his CMC joint, numbness and tingling. States he is using a stress ball for therapy Denies P.T/O.T . Of note, the patient reports that he has not had good control of his diabetes over the last few weeks, reporting that his blood sugar has frequently been in the range of 170-200. [facility] Medical History (Updated 10/06/24 @ 17:32 by MARYBEL Lyle) History of colon polyps Ischemic cardiomyopathy Atherosclerotic cardiovascular disease History of pancreatitis Hepatitis B Hepatitis C Chronic HFrEF (heart failure with reduced ejection fraction) Cardiomyopathy Type 2 diabetes mellitus with hyperglycemia, with long-term current use of insulin Type 2 diabetes mellitus with diabetic polyneuropathy Hyperlipidemia LDL goal <70 Essential hypertension Myocardial infarction Surgical History (Updated 10/06/24 @ 09:18 by CANDY Goldstein) Hx of knee surgery Hx of colonoscopy History of appendectomy Hx of heart artery stent H/O coronary artery bypass surgery H/O cardiac catheterization Family History Mother Diabetes Social History Household Members: Spouse Alcohol intake: never Patient Tobacco Use Status: Never used Tobacco Current occupational status: unemployed Review of Systems Const All systems reviewed & are unremarkable except as noted in HPI and below Physical Exam Vital Signs: BMI result Body Mass Index 26.0 Extrem Other: Patient is alert, oriented, and in no acute distress. Neuro: Normal sensation of the tips of all digits of the right hand at this time Vascular: Cap refill brisk Pain: Tenderness to palpation of A1 layssia of right thumb Pain associated with locking and catching of the right thumb ROM: There is visible and palpable locking and catching of the right thumb in a flexed position Patient is able to flex and extend all other digits of the right hand fully and without difficulty Skin: No lacerations or abrasions. General: No ecchymosis, erythema, or evidence of infection. Psych: Appears grossly normal Affect normal Attitude cooperative Assessment & Plan Assessment & Plan (1) Trigger thumb, right thumb: Code(s): M65.311 - Trigger thumb, right thumb Category: Medical Plan 1. Trigger thumb of right thumb Patient is educated about this condition Patient is educated about the treatment options available At this time, unfortunately I do not feel it is safe to perform either a surgery or steroid injection on the patient, as he is shown to have poor diabetes control, particularly over the last few months Patient is educated on the potential risks of both a steroid injection and surge ry with poor diabetes control Patient states understanding of this and is amenable to this plan Follow-up in 3-4 weeks to discuss potential injection if blood sugar control has improved, sooner with any acute concerns Orders: Orders XR hand RT min 3V Today M79.641 - Pain in right hand Coding Level of Care Code New Pt Level 3 (19625) Diagnoses Trigger thumb, right thumb M65.311
== END 2024-10-06 09:35 | disposition home or self-care (01) ==
LOC: HO.HOS 08:51
PROVIDERS: PCP Registered Nurse
DX: M65.311 Trigger thumb, right thumb (principal)
CPT/HCPCS: 99213

== ENCOUNTER → 2024-10-06 08:52 | Outpatient (BNV) | payer MEDICAID, SELFPAY | PROVIDERS: Visit Provider Radiology Diagnostic Radiology | DX: M19.041 Primary osteoarthritis, right hand (principal) | CPT/HCPCS: 73130 ==

== ENCOUNTER 2024-10-07 08:58 | Outpatient (AMB) | payer MEDICAID, SELFPAY ==
[2024-10-07 09:16] VITALS: BP 123/75; PULSE 81; RESP 18; O2SAT 100
--- NOTE | 2024-10-07 09:16 | MHC.OFFVIS ---
Vital Signs 10/07/24 09:16 Height 5 ft 8 in BP 123/75 Blood Pressure Location Lt brachial Position Sitting Respiration 18 Pulse 81 Pulse Source Pulse Oximeter Pulse Oximetry (%) 100 Oxygen Delivery Method Room Air Intake Visit Reasons: Lumbar back pain/JUAREZ 06/24/22 Dried Yeast Supervisor Required: Yes Dried Yeast Supervisor Name: [email or web address] [phone] Allergies No Known Allergies (No Known Allergies*) Allergy (Verified 10/07/24 09:16) HPI Comments Details: Barrett is back in my office with another complains on pain in the upper lumbar spine more to the right. Physical exam is as below. Previously he was treated in this office with sacroiliac joint injections for the most lower back pain. The patient does not remember the injections however he does not complain now on most lower back pain his pain is in approximate projection of L1-L2 vertebra on the right. He never had physical therapy for this pain. I will send him for the physical therapy 1st. In 5 weeks he will schedule appointment with me and we will discuss injections. He is on Plavix however last time he was given a clearance to us stop his Plavix for 7 days by his armed guard Dr. Esteves. Prior: Reports that he has severe stiffness and pain in bilateral hands and fingers.? He reports that he cannot make a fist on his right hand because of the history of trauma and surgery in [place] he received on the right hand.? He also complains on pain in the left foot secondary to the spurs and arthritis.? He reported today that received injections with office of podiatry somewhere locally however he has left the practice and he is not receiving any injections anymore.? Those injections used to help his pain. He also reports the pain in the left hip with radiation down to the left thigh he reports this pain is stemming out of the trauma he received many years ago.? He reports tenderness on palpation in the posterior hip. This is very unfortunate gentleman who suffers from ischemic cardiomyopathy, coronary artery disease, status post CABG 5 vessels, diabetes mellitus type 2, possibly rheumatoid arthritis [facility] Medical History (Updated 10/07/24 @ 09:53 by Luisito Walter MD) History of colon polyps Ischemic cardiomyopathy Atherosclerotic cardiovascular disease History of pancreatitis Hepatitis B Hepatitis C Chronic HFrEF (heart failure with reduced ejection fraction) Cardiomyopathy Type 2 diabetes mellitus with hyperglycemia, with long-term current use of insulin Type 2 diabetes mellitus with diabetic polyneuropathy Hyperlipidemia LDL goal <70 Essential hypertension Myocardial infarction Surgical History (Updated 10/06/24 @ 09:18 by CANDY Goldstein) Hx of knee surgery Hx of colonoscopy History of appendectomy Hx of heart artery stent H/O coronary artery bypass surgery H/O cardiac catheterization Family History Mother Diabetes Social History Household Members: Spouse Alcohol intake: never Patient Tobacco Use Status: Never used Tobacco Current occupational status: unemployed Review of Systems Const All systems reviewed & are unremarkable except as noted in HPI and below ENT Reports Normal hearing present Neuro Reports Normal hearing present, Denies Abnormal speech present, Denies confusion and Denies Sensory deficit (Neuro) Psych Denies confusion Physical Exam Vital Signs: Last Vital Signs Pulse 81 10/07/24 09:16 Resp 18 10/07/24 09:16 BP 123/75 10/07/24 09:16 Pulse Ox 100 10/07/24 09:16 Oxygen Delivery Method Room Air 10/07/24 09:16 Const General: No confusion Orientation/consciousness: No confusion Eyes General: appearance normal, both eyes and all related structures Pupils: Equal, round and reactive pupils present EOM: EOMs intact bilaterally Neck Neck: Yes full ROM Chest Chest palpation & inspection: normal inspection of the chest Resp Effort & Inspection: normal respiratory effort, able to speak in complete sentences, normal respiratory pattern, no audible wheezes and no cough Cardio Jugular venous distension: no JVD GI Inspection: Yes normal to inspection Back/Spine/Pelvis Other: There is tenderness on palpation in projection of the spinal and right paraspinal regions of the L1-L2 L3 approximate portion of the lumbar spine. There is significant tenderness on palpation in the right flank. Loading test is positive on the right. Neuro General: No confusion Cranial nerves: Yes Equal, round and reactive pupils present and Yes Normal hearing present Speech: No Abnormal speech present Gait exam (Neuro): Normal gait present Motor exam (neuro): 5/5 motor strength present throughout Sensory Exam: No Sensory deficit (Neuro) Extrem Other: Unable to make a fist on the right hand. Reports severe pain with fist clenching on both hands. There is faint thin scar on the medial surface of the left hand where apparently he had ORIF of the fracture done. General: No pedal edema Psych Speech and movement: Normal speech and movement present Affect: normal affect Attitude: cooperative Thought process: Normal thought process present Thought content: Normal thought content present Insight: Good insight present (Psych) Judgement: Good judgement present (Psych) Results Reviewed Results Reviewed: MRI of the lumbar spine was obtained using routine sequences without contrast. 02/28/2024 FINDINGS: There are 5 nonrib-bearing lumbar-type vertebrae. Preservation of the normal lumbar lordosis. No listhesis. No acute bone marrow abnormality. The vertebral body heights are preserved. Multilevel disc desiccation without significant disc height loss. The visualized spinal cord is normal in caliber. No abnormal cord signal. The conus medullaris terminates at L1-2. T12-L1: No significant spinal canal or neural foraminal narrowing. L1-2: Bilateral facet arthrosis. No significant spinal canal or neural foraminal narrowing. L2-3: Shallow left foraminal disc protrusion and bilateral facet arthrosis. No significant spinal canal or neural foraminal narrowing. L3-4: Shallow disc bulge and bilateral facet arthrosis. No significant spinal canal or neural foraminal narrowing however the disc abuts the exiting L3 nerve roots bilaterally. L4-5: Diffuse disc bulge with superimposed annular fissure. Ligamentum flavum hypertrophy and bilateral facet arthrosis. No significant spinal canal stenosis. Mild right greater than left neural foraminal narrowing with the disc abutting the exiting L4 nerve roots. L5-S1: Shallow disc bulge and left facet arthrosis. No significant spinal canal stenosis. Mild left neural foraminal narrowing. The paravertebral soft tissues are unremarkable. IMPRESSION: Multilevel lumbar spondylosis without significant spinal canal stenosis. Neural foraminal narrowing is worst and mild at L4-L5 bilaterally and on the left at L5-S1. Assessment & Plan Assessment & Plan (1) Sacroiliitis: Code(s): M46.1 - Sacroiliitis, not elsewhere classified Category: Medical (2) Rheumatoid arthritis: Code(s): M06.9 - Rheumatoid arthritis, unspecified Category: Medical (3) Spondylosis of lumbar region without myelopathy or radiculopathy: Code(s): M47.816 - Spondylosis without myelopathy or radiculopathy, lumbar region Category: Medical Plan Back in 2022 the patient received therapeutic sacroiliac joint injection from me. Presumably the effect was good because patient now does not complain on lower back pain. His pain is mostly in the projection of the L1-L2 vertebra on the lumbar spine upper lumbar area. And it is mostly to the right. I recommended him to go for physical therapy. Upon completion of physical therapy he will schedule appointment with me and we will discuss some injections if physical therapy will not be helpful. Orders: Orders PT Evaluation and Treatment Today M47.816 - Spondylosis without myelopathy or radiculopathy, lumbar region Coding Level of Care Code Est Pt Level 3 (14788) Diagnoses Sacroiliitis M46.1 Rheumatoid arthritis M06.9 Spondylosis of lumbar region without myelopathy or radiculopathy M47.816
--- OUTSIDE RECORDS SUMMARY | 2024-10-07 09:39 | XMS_ITS | Encounter Summary ---
Author Organization [employer] Address [address] [place] [address] Care Team Providers Care Qa Lead Name Role Phone Waleska Goldberg Primary Care Provider [phone] Reason for Visit * Reason Onset Date Comments Referral 06/30/2024 Encounter Details Date Type Department Care Team ([facility] st Contact Info) Description 06/30/2024 Telephone [facility] [address], [place] [id number] Waleska Goldberg FNP [address] [place] [address] Referral Social History Tobacco Use Types Packs/Day [...] PM EDT Insurance authorization for 20 visits #[id number] faxed to Jan Shen @ [phone]. * Telephone Encounter - Yvonne Palomino - [...] [facility] [address] [place] [address] Waleska Goldberg FNP [address] [place] [address] documented as of this encounter Visit Diagnoses Not on filedocumented in this encounter Additional Health Concerns Assessment Noted Time PHQ-9 Depression Total Score: 6 07/30/19 24 10:53 AM EDT documented as of this encounter Care Teams Qa Lead Relationship Specialty Start Date End Date Waleska Goldberg FNP [address] [place] [address] PCP - General Family Medicine 12/12/21 Gloria Flores Car ShaggerMaternal Child Nurse 03/13/23 documented as of this encounter
== END 2024-10-07 09:47 | disposition home or self-care (01) ==
LOC: HO.PMC 08:59
PROVIDERS: Visit Provider Anesthesiology
DX: M46.1 Sacroiliitis, not elsewhere classified (principal); M06.9 Rheumatoid arthritis, unspecified; M47.816 Spondylosis without myelopathy or radiculopathy, lumbar region
CPT/HCPCS: 99213

== ENCOUNTER → 2024-10-07 08:58 | Outpatient (BNVA) | payer MEDICAID, SELFPAY | PROVIDERS: Visit Provider Anesthesiology | DX: M47.816 Spondylosis without myelopathy or radiculopathy, lumbar region (principal); M06.9 Rheumatoid arthritis, unspecified; M46.1 Sacroiliitis, not elsewhere classified | CPT/HCPCS: 99212 ==

== ENCOUNTER 2025-02-26 07:33 | Emergency (ER) | payer MEDICAID, SELFPAY ==
--- NOTE | ~2025-02-26 | CT_ITS ---
CLINICAL HISTORY: left flank pain CT abdomen and pelvis with contrast Comparison: CT of the abdomen and pelvis from 07/14/2023 Findings: Bibasilar atelectasis/consolidation concerning for pneumonitis and pneumonia. Mild fat deposition of the liver. Question punctate cholelithiasis by CT (288 of series 2). The adrenal glands are normal. Mild volume loss of the pancreas is noted. Spleen approaches the upper limits of normal. No hydronephrosis. Nonobstructing nephrolithiasis including lower poles of the both kidneys measuring up to 6 mm; increased from comparison. Small retroperitoneal and mesenteric lymph nodes are likely reactive. No small bowel obstruction. Severe stool burden present, including the cecum. Mild wall thickening of the large intestine is nonspecific and may reflect mild colitis, including cecum. The appendix is not definitively seen. The prostate gland measures 4.8 cm transverse. Mild wall thickening of the urinary bladder is nonspecific. Mild wall thickening of the rectum is nonspecific. Mild vertebral height losses appear old/chronic and accentuated by Schmorl's nodes including lower endplate of the T11. Previous sternotomy changes of the partially imaged. IMPRESSION: 1. Nonobstructing nephrolithiasis in the lower poles of the both kidneys. No hydronephrosis at this time. 2. Severe stool burden. No small bowel obstruction. 3. Bibasilar pulmonary opacities concerning for pneumonitis/pneumonia. Recommend attention on follow-up to ensure resolution. 4. Nonspecific wall thickening of the urinary bladder. This document has been electronically signed by: Uri Kendall MD on 02/26/2025 12:02:25
--- NOTE | ~2025-02-26 | XR_ITS ---
CLINICAL HISTORY: cough 2 view chest x-ray. Comparison: 02/12/2024 Findings: No consolidation or effusion. Cardiac and mediastinal contours are stable. Bones unremarkable. Impression: 1. No acute pulmonary disease. This document has been electronically signed by: Roscoe Guadarrama MD on 02/26/2025 15:02:14
[2025-02-26 07:34] VITALS: BP 115/56; PULSE 69; RESP 20; TEMP 36.2; O2SAT 96; BMI 24.7
[2025-02-26 08:03] LABS: MANUAL DIFF FLAG NO
[2025-02-26 08:04] LABS: Hematocrit 44.5 % (42.0-52.0); Hemoglobin 15.3 g/dl (14.0-18.0); Imm Gran Abs Auto 0.01 X10*3/uL (0.00-0.03); Imm Gran Pct Auto 0.2 % (0.0-0.4); Lymphocytes Absolute Auto 1.3 X10*3/uL (1.2-4.9); Mean Corpuscular HGB Conc 34.4 g/dl (31.0-36.0); Mean Corpuscular Hemoglobin 31.7 pg (27.0-33.0); Mean Corpuscular Volume 92.1 fL (80.0-98.0); NRBC Abs Auto 0.000 X10*3/uL (0.0-0.012); NRBC Pct Auto 0.0 /100WBC (0.0-0.2); Platelet Count 171 X10*3/uL (160-400); Red Blood Count 4.83 X10*6/uL (4.60-5.80); White Blood Count 4.4 X10*3/uL (4.8-10.8)
[2025-02-26 08:06] LABS: Appearance Urine Clear; Glucose Urine UA >=1000 mg/dL (Negative); PH 5.5 (5.0-9.0); Specific Gravity - Urine >= 1.030 (1.005-1.025); UMIC TRIGGER UACC YES
[2025-02-26 08:21] LABS: Alanine Aminotransferase 31 U/L (0-40); Albumin Level 3.9 g/dL (3.5-5.0); Alkaline Phosphatase 121 U/L (39-117); Anion Gap 11 (12-20); Aspartate Amino Transferase 31 U/L (5-37); Blood Urea Nitrogen 22 mg/dL (9-16); Calcium 8.3 mg/dL (8.4-10.2); Carbon Dioxide 22 mmol/L (22-29); Chloride 111 mmol/L (96-108); Creatinine Clr Calc Pharmacy 89.3; Estimated Glomerular Filt Rate > 60; Lipase 21 U/L (8-78); Potassium 3.8 mmol/L (3.3-5.1); Sodium 140 mmol/L (135-145); Total Protein 6.0 g/dL (6.5-8.0)
--- NOTE | 2025-02-26 08:28 | ED.GENADULT ---
HPI - General Adult General Chief complaint: Back Pain/Injury Stated complaint: back pain, abd pain Time Seen by Provider: 02/26/25 08:21 Source: patient Mode of arrival: ambulatory Limitations: no limitations History of Present Illness HPI narrative: This is a 59 years old the patient presented to the emergency department with a chief complaint of abdominal pain the pain is localized in the left flank no radiation no nausea no vomiting he has a history of kidney stone he has a history of CAD and diabetes he comes ambulatory to the ED. He also complaining of congested cough. He has no nausea no vomiting. Onset (ago): day(s) (2) Location: head Radiation: non-radiation Severity: moderate Quality: burning Pain Consistency: constant Relieving factors: none Exacerbating factors: none Associated symptoms: denies other symptoms Related Data Home Medications ?Medication ?Instructions ?Recorded ?Confirmed atorvastatin 80 mg tablet 80 mg PO DAILY 04/11/20 09/30/24 carvedilol 3.125 mg tablet 3.125 mg PO BID 04/11/20 09/30/24 clopidogrel 75 mg tablet 75 mg PO DAILY 04/11/20 09/30/24 ezetimibe 10 mg tablet (Zetia) 10 mg PO DAILY 04/11/20 09/30/24 gabapentin 800 mg tablet 800 mg PO BID 04/11/20 09/30/24 isosorbide mononitrate 60 mg 60 mg PO DAILY 04/11/20 09/30/24 tablet,extended release 24 hr lisinopril 2.5 mg tablet 2.5 mg PO DAILY 04/11/20 09/30/24 melatonin 5 mg capsule See Rx Instructions PO ONCE 04/11/20 09/30/24 ammonium lactate 12 % topical cream 1 appl topical BID 07/11/21 09/30/24 fluticasone propionate 50 1 - 2 spray intranasal DAILY PRN 01/17/22 09/30/24 mcg/actuation nasal congestion spray,suspension naproxen 500 mg tablet 500 mg PO moderate pain 06/13/22 09/30/24 tizanidine 4 mg tablet 4 mg PO TID 06/13/22 09/30/24 aspirin 81 mg chewable tablet 81 mg PO QAM 07/25/22 09/30/24 pregabalin 100 mg capsule 100 mg PO ONCE 07/25/22 09/30/24 Previous Rx's ?Medication ?Instructions ?Recorded magnesium citrate 300 ml PO DAILY PRN constipation 02/28/20 #296 mL blood sugar diagnostic (FreeStyle 1 strip miscellaneous QID PRN for 09/19/20 Lite Strips) diabetes mellitus #150 strips blood-glucose meter (FreeStyle 1 ea miscellaneous DIRECTED #1 09/26/20 [place] Lite kit) kit lancets 33 gauge (TRUEplus Lancets) 1 gauge miscellaneous QID for 10/12/20 diabetes mellitus #100 ea flash glucose scanning reader #1 ea 01/01/21 (FreeStyle Alfredo 2 [place]) flash glucose sensor (FreeStyle #2 ea 01/01/21 Alfredo 2 Sensor kit) dicyclomine 20 mg tablet 20 mg PO QID PRN abdominal pain 02/06/21 #20 tabs insulin glargine 100 unit/mL (3 30 unit (0.3 mL) subcut DAILY #15 08/06/21 mL) subcutaneous pen (Lantus mL Solostar U-100 Insulin) metformin 500 mg tablet 1,000 mg (2 x 500 mg) PO BID 30 12/12/21 days #120 tabs pen needle, diabetic 32 gauge x See Rx Instructions .Route 01/31/22/32 (Pentips Pen Needle) .COMPLEX #200 ea diclofenac sodium 1 % topical gel 2 g topical QID 30 days #100 grams 02/27/22 insulin aspart U-100 100 unit/mL See Rx Instructions subcut QID #30 03/27/22 (3 mL) subcutaneous pen (Novolog mL FlexPen U-100 Insulin aspart) hydrocortisone 2.5 % topical cream 1 appl MI BID PRN hemorrhoids #30 06/13/22 with perineal applicator grams (Proctozone-HC) polyethylene glycol 3350 17 17 g PO DAILY 30 days #510 grams 09/16/22 gram/dose oral powder (Miralax) lidocaine 5 % topical patch 1 patch topical DAILY #30 ea 06/10/23 acetaminophen 325 mg capsule 325 mg PO Q4H PRN pain #30 caps 07/14/23 (Tylenol) lidocaine 5 % topical patch 1 patch topical DAILY PRN pain #15 07/14/23 ea potassium citrate 10 mEq (1,080 20 meq (2 x 10 mEq (1,080 mg)) PO 09/11/24 mg) tablet,extended release BID 90 days #360 tabs acetaminophen 500 mg tablet 500 mg PO Q8H PRN pain #30 tabs 03/04/24 (Tylenol Extra Strength) ibuprofen 600 mg tablet 600 mg PO Q6H PRN fever or pain 03/20/24 #30 tabs calcium polycarbophil 625 mg 625 mg PO TID #270 tabs 04/12/24 tablet (Fiber-Lax) tadalafil 10 mg tablet 10 mg PO DAILY bladder stability 07/13/24 90 days #90 tabs bisacodyl 5 mg tablet,delayed 5 mg PO ONCE 1 day #3 tabs 07/28/24 release polyethylene glycol 3350 17 238 g PO ONCE #238 grams 07/28/24 gram/dose oral powder (Miralax) doxazosin 4 mg tablet 8 mg (2 x 4 mg) PO BEDTIME 90 days 08/09/24 #180 tabs ranolazine 500 mg tablet,extended 500 mg PO BID #180 tabs 08/16/24 release,12 hr methocarbamol 750 mg tablet 1,500 mg (2 x 750 mg) PO Q8H #20 08/19/24 tabs evolocumab 140 mg/mL subcutaneous 140 mg subcut Q2W #2 mL 08/20/24 pen injector (Shai Santamaria) nitroglycerin 0.4 mg sublingual 0.4 mg sublingual Q5M PRN angina 09/30/24 tablet pectoris #25 tabs docusate sodium 100 mg capsule 200 mg (2 x 100 mg) PO BEDTIME #60 11/09/24 (Stool Softener) caps finasteride 5 mg tablet 5 mg PO DAILY 90 days #90 tabs 01/04/25 furosemide 20 mg tablet 20 mg PO DAILY #90 tabs 01/04/25 albuterol sulfate 2.5 mg/3 mL 2.5 mg (3 mL) inhalation QID PRN 02/26/25 (0.083 %) solution for nebulization bronchospasm #75 mL amoxicillin 500 mg capsule 500 mg PO BID #10 caps 02/26/25 oxycodone 5 mg tablet 5 mg PO Q6H PRN pain #15 tabs 02/26/25 Allergies Allergy/AdvReac Type Severity Reaction Status Date / Time No Known Allergies (No Known Allergy Verified 02/26/25 07:38 Allergies*) Review of Systems Constitutional: Constitutional: Reports no additional constitutional complaints ENT: Reports system reviewed and no additional complaints, except as documented PMFSH Past Medical History Attestation statement: The following information was validated with the patient. Source: unable to obtain Medical History History of colon polyps Ischemic cardiomyopathy Atherosclerotic cardiovascular disease History of pancreatitis Hepatitis B Hepatitis C Chronic HFrEF (heart failure with reduced ejection fraction) Cardiomyopathy Type 2 diabetes mellitus with hyperglycemia, with long-term current use of insulin Type 2 diabetes mellitus with diabetic polyneuropathy Hyperlipidemia LDL goal <70 Essential hypertension Myocardial infarction Surgical History Hx of knee surgery Hx of colonoscopy History of appendectomy Hx of heart artery stent H/O coronary artery bypass surgery H/O cardiac catheterization Family History Family History Mother Diabetes Social History Social History Household Members: Spouse Alcohol intake: never Patient Tobacco Use Status: Never used Tobacco Advance Directives: No Advance Directives Information Provided: No Current occupational status: unemployed Physical Exam ED Exam Exam: No acute distress looks well Vital Signs: Vital Signs - 24 hr 02/26/25 07:34 02/26/25 12:19 Temperature 97.1 F Pulse Rate 69 76 Respiratory Rate 20 18 Blood Pressure 115/56 L 115/62 Pulse Oximetry 96 97 Oxygen Delivery Method Room Air Room Air BMI result Body Mass Index 24.7 Const General: cooperative Nutritional Appearance: average body habitus Orientation/consciousness: patient oriented x3 HENMT Head: Yes normal to inspection Neck Neck: Yes normal visual inspection and Yes full ROM Chest Chest palpation & inspection: normal inspection of the chest Resp Effort & Inspection: normal respiratory effort Cardio Jugular venous distension: no JVD Rate: regular rate Rhythm: regular rhythm GI Inspection: Yes normal to inspection Palpation (GI): Soft to palpation Percussion: Yes normal to percussion General: Yes no CVA tenderness Back/Spine/Pelvis Back: no CVA tenderness Skin General skin exam: no rashes or lesions noted and elasticity normal Lesions: no lesions Rashes: no rashes Neuro General: patient oriented x3 Course Reevaluation(s) Reevaluation #1: Feels better CT scan of the abdomen and pelvis shows no acute pathology. This point we will discharge him home patient is requesting also a refill for the albuterol also he states and he has a congested cough we will do a chest x-ray Medications Administered Discontinued Medications Generic Name Dose Route Start Last Admin Trade Name Claudio PRN Reason Stop Dose Admin Hydromorphone HCl 0.5 mg 02/26/25 08:27 02/26/25 08:31 Hydromorphone Hcl 0.5 Mg/0.5 Ml Syringe IVPUSH 02/26/25 08:28 0.5 mg ONCE ONE Administration Protocol Iohexol 100 ml 02/26/25 09:17 02/26/25 09:17 Iohexol 350 Mg/Ml 100 Ml Infus..Btl IV 02/26/25 09:18 85 ml ONCE ONE Administration Ketorolac Tromethamine 15 mg 02/26/25 12:08 02/26/25 12:14 Ketorolac Tromethamine 15 Mg/Ml Vial IVPUSH 02/26/25 12:09 15 mg ONCE ONE Administration Oxycodone HCl 5 mg 02/26/25 12:38 02/26/25 12:52 Oxycodone Hcl Immed Release 5 Mg Tablet PO 02/26/25 12:39 5 mg ONCE ONE Administration Medical Decision Making Medical Decision Making [facility] Narrative: Patient is here with left flank pain we will obtain labs UA and imaging 15:03 feels better cat scan negative at this point I think he can be discharged home etiology of the pain is unclear, patient is stating also that he is having congestive cough and he needs refill for albuterol I will provide with the albuterol, I did do a chest x-ray to my reading is negative but I will treat him for bronchitis I will send an antibiotic Differential Diagnosis Differential Diagnoses: The differential diagnosis associated with the presentation includes Question diverticulitis question of colitis question of kidney stone Admission/Observation Consideration of admission/observation: Escalation of care including admission/observation considered Lab Data [facility] Lab Attestation statement: I reviewed the patient's lab results. 02/26/25 07:53 02/26/25 07:53 Labs: Lab Results 02/26/25 02/26/25 02/26/25 Range/Units 07:52 07:53 08:09 WBC 4.4 L (4.8-10.8) X10*3/uL RBC 4.83 (4.60-5.80) X10*6/uL Hgb 15.3 (14.0-18.0) g/dl Hct 44.5 (42.0-52.0) % MCV 92.1 (80.0-98.0) fL MCH 31.7 (27.0-33.0) pg MCHC 34.4 (31.0-36.0) g/dl RDW 12.8 (11.0-16.0) % Plt Count 171 (160-400) X10*3/uL MPV 10.2 (9.4-12.4) fL Immature Gran % (Auto) 0.2 (0.0-0.4) % Neut % (Auto) 57.4 (45-73) % Lymph % (Auto) 29.3 (20-40) % [place] % (Auto) 8.9 (2-11) % Eos % (Auto) 3.7 (0-4) % Baso % (Auto) 0.5 (0-2) % Lymph # (Auto) 1.3 (1.2-4.9) X10*3/uL [place] # (Auto) 0.4 (0.1-1.2) X10*3/uL Eos # (Auto) 0.2 (0.0-0.4) X10*3/uL Baso # (Auto) 0.0 (0.0-0.2) X10*3/uL Abs Immat Gran (auto) 0.01 (0.00-0.03) X10*3/uL Absolute Neuts (auto) 2.5 (2.0-8.3) x10*3/uL Absolute Nucleated RBC 0.000 (0.0-0.012) X10*3/uL Nucleated RBC % (auto) 0.0 (0.0-0.2) /100WBC Sodium 140 (135-145) mmol/L Potassium 3.8 (3.3-5.1) mmol/L Chloride 111 H (96-108) mmol/L Carbon Dioxide 22 (22-29) mmol/L Anion Gap 11 L (12-20) BUN 22 H (9-16) mg/dL Creatinine 0.89 (0.5-1.4) mg/dL Estim Creat Clear Calc 89.3 Estimated GFR > 60 Random Glucose 193 H (60-115) mg/dL Calcium 8.3 L (8.4-10.2) mg/dL Total Bilirubin 2.2 H (0.0-1.0) mg/dL Direct Bilirubin 0.5 (0.0-0.5) mg/dL AST 31 (5-37) U/L ALT 31 (0-40) U/L Alkaline Phosphatase 121 H (39-117) U/L Total Protein 6.0 L (6.5-8.0) g/dL Albumin 3.9 (3.5-5.0) g/dL Lipase 21 (8-78) U/L Urine Color Yellow Urine Appearance Clear Urine pH 5.5 (5.0-9.0) Ur Specific [place] >= 1.030 H (1.005-1.025) Urine Protein Trace (Neg-Trace) mg/dL Urine Glucose (UA) >=1000 H (Negative) mg/dL Urine Ketones Trace (Negative) mg/dL Urine Blood Negative (Negative) Urine Nitrite Negative (Negative) Ur Leukocyte Esterase Negative (Negative) Urine RBC 0-2 (0-2) /HPF Urine WBC 0-5 (0-5) /HPF Ur Squamous Epith Cells 0-2 (0-2) /HPF Urine Bacteria None Seen (None Seen) Hyaline Casts 0-2 (0-2) /LPF Influenza Type A (BOYD) Negative (Negative) Influenza Type B (BOYD) Negative (Negative) Influenza A & B Note See Note S. pyogenes GrpA BOYD Negative (Negative) Independent Interpretation I performed an independent interpretation of an: Plain X-Ray (No acute disease to my review) and CT Scan Interpretation: Constipation Radiology Impression Discussion of test interpretation with radiology: I have reviewed the radiologist's reading. Independent Historian Clinical information obtained from an independent historian. History obtained from or confirmed by: Spouse Discharge Plan Discharge Clinical Impression: Bronchitis Abdominal pain Qualifiers: Abdominal location: left lower quadrant Qualified Code(s): R10.32 - Left lower quadrant pain Patient Disposition: Home, Self-Care Instructions: Abdominal Pain (ED) Additional Instructions: Follow-up with your primary care physician on Friday stay on liquid diet return if worse Prescriptions: New oxycodone 5 mg tablet 5 mg PO Q6H PRN (Reason: pain) Qty: 15 0RF Rx Instructions: partial filing upon pt request; Partial Fill upon patient request. albuterol sulfate 2.5 mg /3 mL (0.083 %) solution for nebulization 2.5 mg inhalation QID PRN (Reason: bronchospasm) Qty: 75 0RF amoxicillin 500 mg capsule 500 mg PO BID Qty: 10 0RF No Action blood sugar diagnostic [FreeStyle Lite Strips] Strip 1 strip miscellaneous QID PRN (Reason: for diabetes mellitus) Qty: 150 11RF blood-glucose meter [FreeStyle [place] Lite] Kit 1 ea miscellaneous DIRECTED Qty: 1 0RF lancets [TRUEplus Lancets] 33 gauge misc 1 gauge miscellaneous QID Qty: 100 11RF metformin 500 mg tablet 1,000 mg PO BID 30 Days Qty: 120 4RF pen needle, diabetic [Pentips Pen Needle] 32 gauge x 5/32 needle See Rx Instructions .ROUTE .COMPLEX Qty: 200 2RF Dose Instruction: USE SIX TIMES DAILY DIRECTED Rx Instructions: USE SIX TIMES DAILY DIRECTED insulin aspart U-100 [Novolog FlexPen U-100 Insulin] 100 unit/mL (3 mL) insulin pen See Rx Instructions subcut QID Qty: 30 0RF Rx Instructions: 6-8 units with meals, 2 units with snack subcut 4 times a day; potassium citrate 10 mEq (1,080 mg) tablet extended release 20 meq PO BID 90 Days Qty: 360 1RF calcium polycarbophil [Fiber-Lax] 625 mg tablet 625 mg PO TID Qty: 270 1RF doxazosin 4 mg tablet 8 mg PO BEDTIME 90 Days Qty: 180 1RF ranolazine 500 mg tablet extended release 12 hr 500 mg PO BID Qty: 180 3RF [place] SureClick 140 mg/mL pen injector 140 mg subcut Q2W Qty: 2 5RF docusate sodium [Stool Softener] 100 mg capsule 200 mg PO BEDTIME Qty: 60 5RF finasteride 5 mg tablet 5 mg PO DAILY 90 Days Qty: 90 0RF furosemide 20 mg tablet 20 mg PO DAILY Qty: 90 3RF magnesium citrate Solution 300 ml PO DAILY PRN (Reason: constipation) Qty: 296 0RF dicyclomine 20 mg tablet 20 mg PO QID PRN (Reason: abdominal pain) Qty: 20 0RF methocarbamol 750 mg tablet 1,500 mg PO Q8H Qty: 20 0RF lidocaine 5 % adhesive patch,medicated 1 patch topical DAILY Qty: 30 0RF Rx Instructions: leave on most painful area for up to 12 hrs lidocaine 5 % adhesive patch,medicated 1 patch topical DAILY PRN (Reason: pain) Qty: 15 0RF Rx Instructions: leave on most painful area for up to 12 hrs acetaminophen [Tylenol] 325 mg capsule 325 mg PO Q4H PRN (Reason: pain) Qty: 30 0RF acetaminophen [Tylenol Extra Strength] 500 mg tablet 500 mg PO Q8H PRN (Reason: pain) Qty: 30 0RF ibuprofen 600 mg tablet 600 mg PO Q6H PRN (Reason: fever or pain) Qty: 30 0RF clopidogrel 75 mg tablet 75 mg PO DAILY carvedilol 3.125 mg tablet 3.125 mg PO BID Rx Instructions: must administer with a meal/food lisinopril 2.5 mg tablet 2.5 mg PO DAILY isosorbide mononitrate 60 mg tablet extended release 24 hr 60 mg PO DAILY atorvastatin 80 mg tablet 80 mg PO DAILY melatonin 5 mg capsule See Rx Instructions PO ONCE Rx Instructions: 5 mg (2 tab) PO once; gabapentin 800 mg tablet 800 mg PO BID ezetimibe [Zetia] 10 mg tablet 10 mg PO DAILY (DME) FreeStyle Alfredo 2 [place] Misc See Rx Instructions .ROUTE .MEDSUPPLY Qty: 1 0RF Rx Instructions: As directed (DME) FreeStyle Alfredo 2 Sensor Kit See Rx Instructions .ROUTE .MEDSUPPLY Qty: 2 11RF Rx Instructions: As directed every 2 weeks ammonium lactate 12 % cream 1 appl topical BID Lantus Solostar U-100 Insulin 100 unit/mL (3 mL) insulin pen 30 unit subcut DAILY Qty: 15 4RF fluticasone propionate 50 mcg/actuation spray,suspension 1 - 2 spray intranasal DAILY PRN (Reason: congestion) aspirin 81 mg tablet,chewable 81 mg PO QAM diclofenac sodium 1 % gel 2 g topical QID 30 Days Qty: 100 8RF Rx Instructions: apply to hand; for hand includes palm/fingers/back of hand pregabalin 100 mg capsule 100 mg PO ONCE naproxen 500 mg tablet 500 mg PO tizanidine 4 mg tablet 4 mg PO TID hydrocortisone [Proctozone-HC] 2.5 % cream with perineal applicator 1 appl MI BID PRN (Reason: hemorrhoids) Qty: 30 3RF Rx Instructions: apply MI BID prn polyethylene glycol 3350 [Miralax] 17 gram/dose powder 17 g PO DAILY 30 Days Qty: 510 6RF tadalafil 10 mg tablet 10 mg PO DAILY 90 Days Qty: 90 1RF nitroglycerin 0.4 mg tablet, sublingual 0.4 mg sublingual Q5M PRN (Reason: angina pectoris) Qty: 25 1RF Rx Instructions: do not exceed 3 doses per episode polyethylene glycol 3350 [Miralax] 17 gram/dose powder 238 g PO ONCE Qty: 238 0RF Rx Instructions: per colonoscopy prep instructions bisacodyl 5 mg tablet,delayed release (DR/EC) 5 mg PO ONCE 1 Days Qty: 3 0RF Rx Instructions: per colonoscopy instructions Referrals: Waleska Goldberg FNP [Primary Care Provider, Family Practice] - 03/07/25 Print Language: Thai
[2025-02-26 08:34] LABS: IDNOW Serial# 58CA691E; Strep A Nucleic Acid Negative (Negative)
[2025-02-26 08:40] LABS: IDNOW Serial# 55D5AD1C; Influenza B2 Negative (Negative)
[2025-02-26] MEDS: iohexoL 350 MG/ML 100 ML INFUS..BTL IV (09:17)
[2025-02-26 12:19] VITALS: BP 115/62; PULSE 76; RESP 18; O2SAT 97
[2025-02-26] MEDS: oxyCODONE HCl Immed Release 5 MG TABLET PO (12:52)
[2025-02-26 15:34] VITALS: BP 115/62; PULSE 76; RESP 18; TEMP 36.8; O2SAT 97
== END 2025-02-26 15:35 | disposition home or self-care (01) ==
PROVIDERS: Emergency Provider Emergency Medicine; PCP Registered Nurse
DX: R10.32 Left lower quadrant pain (principal); J40 Bronchitis, not specified as acute or chronic; E11.9 Type 2 diabetes mellitus without complications; I10 Essential (primary) hypertension; Z87.442 Personal history of urinary calculi
CPT/HCPCS: 36415; 71046; 74177; 80048; 80076; 81001; 83690; 85025; 87502; 87651; 96374; 96375; 99284; 99285; J1171; J1885; Q9967

== ENCOUNTER → 2025-02-26 08:27 | Outpatient (BNV) | payer MEDICAID, SELFPAY | PROVIDERS: Emergency Provider Emergency Medicine; PCP Registered Nurse; Visit Provider Radiology Neuroradiology | DX: N20.0 Calculus of kidney (principal); R91.8 Other nonspecific abnormal finding of lung field; R05.9 Cough, unspecified | CPT/HCPCS: 71046; 74177 ==

== ENCOUNTER 2025-03-06 12:22 | Emergency (ER) | payer MEDICAID, SELFPAY ==
--- OUTSIDE RECORDS SUMMARY | 2025-03-04 08:45 | XMS_ITS | Encounter Summary ---
Author Organization [employer] Address [address] [place] [address] Care Team Providers Care Cork Sorter Name Role Phone Waleska Goldberg HEADING PINNER Primary Care Provider [phone] Reason for Visit * Reason Comments Routine Cleaning Dental Exam Encounter Details Date Type Department Care Team ([facility] st Contact Info) Description 03/04/2025 8:45 AM EST Office Visit [facility] AD[facility] [address] [place] [address] Omaira Means Encounter for dental examination (Primary Dx); Tooth missing; Dental caries; Bruxism; Dental plaque; Dental calculus Social History Tobacco Use Types Packs/Day Years [...] Sign Reading Time Taken Comments Blood Pressure 123/70 03/04/2025 8:43 AM EST Pulse - - Temperature - - Respiratory Rate - - Oxygen Saturation - - Inhaled Oxygen Concentration - - Weight - - Height - - Body Mass Index - - documented in this encounter Plan of Treatment Scheduled Orders Name Type Priority Associated Diagnoses Orde r Schedule 1 1 EXTRACTION, ERUPTED TOOTH OR EXPOSED ROOT (ELEVATION/FORCEPS REMOVAL) Dental Routine [address] arting 03/04/2025 15 15 EXTRACTION, ERUPTED TOOTH OR EXPOSED ROOT (ELEVATION/FORCEPS REMOVAL) Dental Routine [address] arting 03/04/2025 6 6 EXTRACTION, ERUPTED TOOTH OR EXPOSED ROOT (ELEVATION/FORCEPS REMOVAL) Dental Routine [address] arting 03/04/2025 14 14 EXTRACTION, ERUPTED TOOTH OR EXPOSED ROOT (ELEVATION/FORCEPS REMOVAL) Dental Routine [address] arting 03/04/2025 DENTURE IMPRESSION Dental Routine 1 Occu rrences starting 03/04/2025 BITE REGISTRATION Dental Routine 1 Occur rences starting 03/04/2025 WAX TRY IN Dental Routine 1 Occurrences starting 03/04/2025 Max Max COMPLETE DENTURE - MAXILLARY Dental Routine [address] arting 03/04/2025 Full Full PROPHYLAXIS - ADULT Dental Routine [address] arting 03/04/2025 documented as of this encounter Goals Goal Patient Goal Type Associated Problems Recent Progress Patient-Stated? Author Help patients manage their type 2 diabetes Care Plan Help patients manage their type 2 diabetes No Claudette Pederson LPN Weekly blood pressure task Care Plan Weekly blood pressure task No [place], Claudette, TRUCK SHOP SUPERVISOR Help patients manage their type 2 diabetes Care Plan Help patients manage their type 2 diabetes No Dacia, Claudette, TRUCK SHOP SUPERVISOR Patient has chronic kidney disease Care Plan Patient has chronic kidney disease No SandownRadhaClaudette, TRUCK SHOP SUPERVISOR Help patients manage their type 2 diabetes Care Plan Help patients manage their type 2 diabetes No [place], Claudette, TRUCK SHOP SUPERVISOR Patient has diabetic neuropathy Care Plan Patient has diabetic neuropathy No DaciaRadhaClaudette, TRUCK SHOP SUPERVISOR Weekly blood pressure task Care Plan Weekly blood pressure task No Dacia Claudette, TRUCK SHOP SUPERVISOR Weekly blood pressure task Care Plan Weekly blood pressure task No [place], Claudette, TRUCK SHOP SUPERVISOR Patient has chronic kidney disease Care Plan Patient has chronic kidney disease No Dacia, Claudette, TRUCK SHOP SUPERVISOR Patient has chronic kidney disease Care Plan Patient has chronic kidney disease No SandownRadhaClaudette, TRUCK SHOP SUPERVISOR Patient has diabetic neuropathy Care Plan Patient has diabetic neuropathy No SandownRadhaClaudette, TRUCK SHOP SUPERVISOR Patient has diabetic neuropathy Care Plan Patient has diabetic neuropathy No Radha Pedersondie, TRUCK SHOP SUPERVISOR Weekly blood pressure task Care Plan Weekly blood pressure task No Kothari Jaysha Weekly blood pressure task Care Plan Weekly blood pressure task No Kothari, Jaysha Weekly blood pressure task Care Plan Weekly blood pressure task No Kothari, Jaysha Patient has chronic kidney disease Care Plan Patient has chronic kidney disease No Kothari, Jaysha Patient has chronic kidney disease Care Plan Patient has chronic kidney disease No Kothari, Jaysha Patient has chronic kidney disease Care Plan Patient has chronic kidney disease No Kothari, Jaysha Patient has diabetic neuropathy Care Plan Patient has diabetic neuropathy No Kothari, Jaysha Patient has diabetic neuropathy Care Plan Patient has diabetic neuropathy No Kothari, Jaysha Patient has diabetic neuropathy Care Plan Patient has diabetic neuropathy No Kothari, Jaysha Weekly blood pressure task Care Plan Weekly blood pressure task No SandownRadhaClaudette, TRUCK SHOP SUPERVISOR Weekly blood pressure task Care Plan Weekly blood pressure task No SandownRadhaClaudette, TRUCK SHOP SUPERVISOR Weekly blood pressure task Care Plan Weekly blood pressure task No [place], Claudette, TRUCK SHOP SUPERVISOR Patient has chronic kidney disease Care Plan Patient has chronic kidney disease No Dacia, Claudette, TRUCK SHOP SUPERVISOR Patient has chronic kidney disease Care Plan Patient has chronic kidney disease No Dacia, Claudette, TRUCK SHOP SUPERVISOR Patient has chronic kidney disease Care Plan Patient has chronic kidney disease No [place], Claudette, TRUCK SHOP SUPERVISOR Patient has diabetic neuropathy Care Plan Patient has diabetic neuropathy No [place], Claudette, TRUCK SHOP SUPERVISOR Patient has diabetic neuropathy Care Plan Patient has diabetic neuropathy No Dacia, Claudette, TRUCK SHOP SUPERVISOR Patient has diabetic neuropathy Care Plan Patient has diabetic neuropathy No [place], Claudette, TRUCK SHOP SUPERVISOR Weekly blood pressure task Care Plan Weekly blood pressure task No Dacia, Claudette, TRUCK SHOP SUPERVISOR Weekly blood pressure task Care Plan Weekly blood pressure task No [place], Claudette, TRUCK SHOP SUPERVISOR Weekly blood pressure task Care Plan Weekly blood pressure task No Dacia, Claudette, TRUCK SHOP SUPERVISOR Patient has chronic kidney disease Care Plan Patient has chronic kidney disease No [place], Claudette, TRUCK SHOP SUPERVISOR Patient has chronic kidney disease Care Plan Patient has chronic kidney disease No [place], Claudette, TRUCK SHOP SUPERVISOR Patient has chronic kidney disease Care Plan Patient has chronic kidney disease No Dacia, Claudette, TRUCK SHOP SUPERVISOR Patient has diabetic neuropathy Care Plan Patient has diabetic neuropathy No Dacia, Claudette, TRUCK SHOP SUPERVISOR Patient has diabetic neuropathy Care Plan Patient has diabetic neuropathy No [place], Claudette, TRUCK SHOP SUPERVISOR Patient has diabetic neuropathy Care Plan Patient has diabetic neuropathy No Dacia, Claudette, TRUCK SHOP SUPERVISOR Weekly blood pressure task Care Plan Weekly blood pressure task No Phalen, Waleska, HEADING PINNER Weekly blood pressure task Care Plan Weekly blood pressure task No Phalen, Waleska, HEADING PINNER Weekly blood pressure task Care Plan Weekly blood pressure task No Phalen, Waleska, HEADING PINNER Patient has chronic kidney disease Care Plan Patient has chronic kidney disease No Phalen, Waleska, HEADING PINNER Patient has chronic kidney disease Care Plan Patient has chronic kidney disease No Phalen, Waleska, HEADING PINNER Patient has chronic kidney disease Care Plan Patient has chronic kidney disease No Phalen, Waleska, HEADING PINNER Patient has diabetic neuropathy Care Plan Patient has diabetic neuropathy No Phalen, Waleska, HEADING PINNER Patient has diabetic neuropathy Care Plan Patient has diabetic neuropathy No Phalen, Waleska, HEADING PINNER Patient has diabetic neuropathy Care Plan Patient has diabetic neuropathy No Phalen, Waleska, HEADING PINNER Weekly blood pressure task Care Plan Weekly blood pressure task No Means, Omaira Weekly blood pressure task Care Plan Weekly blood pressure task No Means, Omaira Weekly blood pressure task Care Plan Weekly blood pressure task No Means, Omaira Patient has chronic kidney disease Care Plan Patient has chronic kidney disease No Means, Omaira Patient has chronic kidney disease Care Plan Patient has chronic kidney disease No Means, Omaira Patient has chronic kidney disease Care Plan Patient has chronic kidney disease No Means, Omaira Patient has diabetic neuropathy Care Plan Patient has diabetic neuropathy No Means, Omaira Patient has diabetic neuropathy Care Plan Patient has diabetic neuropathy No Means, Omaira Patient has diabetic neuropathy Care Plan Patient has diabetic neuropathy No Clary Omaira documented as of this encounter Procedures Procedure Name Priority Date/Time Associated Diagnosis Comments Full PROPHYLAXIS - ADULT Routine 025 8:45 AM EST Dental plaque Dental calculus PERIODIC ORAL EVALUATION - ESTABLISHED PATIENT Routine 03/04/2025 8:45 AM EST Encounter for dental examination Tooth missing Dental caries Bruxism ORAL HYGIENE INSTRUCTIONS Routine 03/04/2025 8:45 AM EST Dental plaque Dental calculus INTRAORAL - PERIAPICAL FIRST RADIOGRAPHIC IMAGE Routine 03/04/2025 8:45 AM EST INTRAORAL - PERIAPICAL EACH ADDITIONAL RADIOGRAPHIC IMAGE Routine 03/04/2025 8:45 AM EST CASE PRESENTATION, DETAILED AND EXTENSIVE TREATMENT PLANNING Routine 03/04/2025 8:45 AM EST BITEWINGS - 3 RADIOGRAPHIC IMAGES Routine 03/04/2025 8:45 AM EST documented in this encounter Visit Diagnoses Diagnosis Encounter for dental examination- Primary Tooth missing Dental caries Unspecified dental caries Bruxism Other specified psychophysiological malfunction Dental plaque Accretions on teeth Dental calculus Accretions on teeth documented in this encounter Additional Health Concerns Active Problems Noted Date Diagnosed Date Help patients manage their type 2 diabetes 02/25 Weekly blood pressure task 02/25/2025 Help patients manage their type 2 diabetes 02/25 Patient has chronic kidney disease 02/25/2025 Help patients manage their type 2 diabetes 02/25 Patient has diabetic neuropathy 02/25/2025 Weekly blood pressure task 02/25/2025 Weekly blood pressure task 02/25/2025 Patient has chronic kidney disease 02/25/2025 Patient has chronic kidney disease 02/25/2025 Patient has diabetic neuropathy 02/25/2025 Patient has diabetic neuropathy 02/25/2025 Weekly blood pressure task 02/25/2025 Weekly blood pressure task 02/25/2025 Weekly blood pressure task 02/25/2025 Patient has chronic kidney disease 02/25/2025 Patient has chronic kidney disease 02/25/2025 Patient has chronic kidney disease 02/25/2025 Patient has diabetic neuropathy 02/25/2025 Patient has diabetic neuropathy 02/25/2025 Patient has diabetic neuropathy 02/25/2025 Weekly blood pressure task 03/02/2025 Weekly blood pressure task 03/02/2025 Weekly blood pressure task 03/02/2025 Patient has chronic kidney disease 03/02/2025 Patient has chronic kidney disease 03/02/2025 Patient has chronic kidney disease 03/02/2025 Patient has diabetic neuropathy 03/02/2025 Patient has diabetic neuropathy 03/02/2025 Patient has diabetic neuropathy 03/02/2025 Weekly blood pressure task 03/03/2025 Weekly blood pressure task 03/03/2025 Weekly blood pressure task 03/03/2025 Patient has chronic kidney disease 03/03/2025 Patient has chronic kidney disease 03/03/2025 Patient has chronic kidney disease 03/03/2025 Patient has diabetic neuropathy 03/03/2025 Patient has diabetic neuropathy 03/03/2025 Patient has diabetic neuropathy 03/03/2025 Weekly blood pressure task 03/04/2025 Weekly blood pressure task 03/04/2025 Weekly blood pressure task 03/04/2025 Patient has chronic kidney disease 03/04/2025 Patient has chronic kidney disease 03/04/2025 Patient has chronic kidney disease 03/04/2025 Patient has diabetic neuropathy 03/04/2025 Patient has diabetic neuropathy 03/04/2025 Patient has diabetic neuropathy 03/04/2025 Weekly blood pressure task 03/04/2025 Weekly blood pressure task 03/04/2025 Weekly blood pressure task 03/04/2025 Patient has chronic kidney disease 03/04/2025 Patient has chronic kidney disease 03/04/2025 Patient has chronic kidney disease 03/04/2025 Patient has diabetic neuropathy 03/04/2025 Patient has diabetic neuropathy 03/04/2025 Patient has diabetic neuropathy 03/04/2025 Assessment Noted Time PHQ-9 Depression Total Score: 0 08/11/19 25 11:33 AM EDT documented as of this encounter Care Teams Cork Sorter Relationship Specialty Start Date End Date Waleska Goldberg FNP [address] [place] [id number] PCP - General Family Medicine 12/12/21 [facility] Drywall Application SupervisorMonotype Caster 03/13/23 documented as of this encounter
--- OUTSIDE RECORDS SUMMARY | 2025-03-04 10:00 | XMS_ITS | Encounter Summary ---
Author Organization [employer] Address [address] [place] [address] Care Team Providers Care Vp Ad Sales West Name Role Phone Waleska Goldberg Primary Care Provider [phone] Reason for Referral * Consultation (Routine) - Pending Review Specialty Diagnoses / Procedures Referred By Shayne rodriguez Referred To Contact Gastroenterology Diagnoses Colon cancer screening Waleska Goldberg FNP [address] [place] [address] Phone: tel: fax: [facility] Referral ID Status Reason Start Date Expiration Date Visits Requested Visits Authorized [id number] Pending Review Specialty Services Required 03/04/2026 1 1 Reason for Visit * Reason Comments Diabetes Nebulizer Machine Wants a Rx Encounter Details Date Type Department Care Team ([facility] Contact Info) Description 03/04/2025 10:00 AM EST Office Visit [facility] [address] [place] [address] Waleska Goldberg FNP [address] [place] [address] Arthritis of both hips (Primary Dx); Type [...] PMH CHF, hypertension, s/p CABG x 5, NC, cervical spondylosis, BPH, who presents to the office for a follow up visit. Interim History: Last PCP visit: 10/04/24 02/26/25: [facility] ED evaluation for left flank pain and [...] diabetes mellitus (HCC) Overview -Previously followed by [facility] Endo for management, although provider left and have not yet established with new provider -Reports BG readings usually ~120 fasting, and then around 100-200 throughout the day -Current regimen includes: -30 units nightly lantus -Novolog 6 units before meals -metformin 500mg BID -Jardiance 10mg daily -CGM approved, plan for initial teaching and device application 08/14/22 at [facility] Pharm[facility] -Podiatry: referral placed 06/05/22 -Optometry: last CEE September 2022 ([facility]) Lab Results Component Value Date [...] Current Assessment & Plan - Followed by [facility] Ortho - evaluation September 2024 by MARYBEL [...] finger of right thumb - Followed by [facility] Ortho - evaluation September 2024 by MARYBEL [...] their type 2 diabetes Claudette Michael LPN Patient has chronic kidney disease Care Plan Patient has chronic kidney disease No VenturaRadhaClaudette, ROUTE VENDING MACHINE SERVICER Help patients manage their type 2 diabetes Care Plan Help patients manage their type 2 diabetes No DaciaRadhaClaudette, ROUTE VENDING MACHINE SERVICER Patient has diabetic neuropathy Care Plan Patient has diabetic neuropathy No VenturaRadhaClaudette, ROUTE VENDING MACHINE SERVICER Weekly blood pressure task Care Plan Weekly blood pressure task No DaciaRadhaClaudette, ROUTE VENDING MACHINE SERVICER Weekly blood pressure task Care Plan Weekly blood pressure task No VenturaRadhaClaudette, ROUTE VENDING MACHINE SERVICER Patient has chronic kidney disease Care Plan Patient has chronic kidney disease No Ventura Claudette, ROUTE VENDING MACHINE SERVICER Patient has chronic kidney disease Care Plan Patient has chronic kidney disease No Dacia, Claudette, ROUTE VENDING MACHINE SERVICER Patient has diabetic neuropathy Care Plan Patient has diabetic neuropathy No VenturaRadhaClaudette, ROUTE VENDING MACHINE SERVICER Patient has diabetic neuropathy Care Plan Patient has diabetic neuropathy No Dacia, Claudette, ROUTE VENDING MACHINE SERVICER Weekly blood pressure task Care Plan Weekly [...] Plan Weekly blood pressure task No DaciaRadhaClaudette, ROUTE VENDING MACHINE SERVICER Weekly blood pressure task Care Plan Weekly blood pressure task No VenturaRadhaClaudette, ROUTE VENDING MACHINE SERVICER Weekly blood pressure task Care Plan Weekly blood pressure task No VenturaRadhaClaudette, ROUTE VENDING MACHINE SERVICER Patient has chronic kidney disease Care Plan Patient has chronic kidney disease No VenturaRadhaClaudette, ROUTE VENDING MACHINE SERVICER Patient has chronic kidney disease Care Plan Patient has chronic kidney disease No DaciaRadhaClaudette, ROUTE VENDING MACHINE SERVICER Patient has chronic kidney disease Care Plan Patient has chronic kidney disease No Radha Pedersondie, ROUTE VENDING MACHINE SERVICER Patient has diabetic neuropathy Care Plan Patient has diabetic neuropathy No VenturaRadhaClaudette, ROUTE VENDING MACHINE SERVICER Patient has diabetic neuropathy Care Plan Patient has diabetic neuropathy No Ventura, Claudette, ROUTE VENDING MACHINE SERVICER Patient has diabetic neuropathy Care Plan Patient has diabetic neuropathy No Dacia, Claudette, ROUTE VENDING MACHINE SERVICER Weekly blood pressure task Care Plan Weekly blood pressure task No Ventura, Claudette, ROUTE VENDING MACHINE SERVICER Weekly blood pressure task Care Plan Weekly blood pressure task No Ventura, Claudette, ROUTE VENDING MACHINE SERVICER Weekly blood pressure task Care Plan Weekly blood pressure task No Ventura, Claudette, ROUTE VENDING MACHINE SERVICER Patient has chronic kidney disease Care Plan Patient has chronic kidney disease No Dacia, Claudette, ROUTE VENDING MACHINE SERVICER Patient has chronic kidney disease Care Plan Patient has chronic kidney disease No Ventura, Claudette, ROUTE VENDING MACHINE SERVICER Patient has chronic kidney disease Care Plan Patient has chronic kidney disease No Dacia, Claudette, ROUTE VENDING MACHINE SERVICER Patient has diabetic neuropathy Care Plan Patient has diabetic neuropathy No Dacia, Claudette, ROUTE VENDING MACHINE SERVICER Patient has diabetic neuropathy Care Plan Patient has diabetic neuropathy No Ventura, Claudette, ROUTE VENDING MACHINE SERVICER Patient has diabetic neuropathy Care Plan Patient has diabetic neuropathy No Dacia, Claudette, ROUTE VENDING MACHINE SERVICER Weekly blood pressure task Care Plan Weekly blood pressure task No Phalen, Waleska, SPIRAL TUBE WINDER Weekly blood pressure task Care Plan Weekly blood pressure task No Phalen, Waleska, SPIRAL TUBE WINDER Weekly blood pressure task Care Plan Weekly blood pressure task No Phalen, Waleska, SPIRAL TUBE WINDER Patient has chronic kidney disease Care Plan Patient has chronic kidney disease No Phalen, Waleska, SPIRAL TUBE WINDER Patient has chronic kidney disease Care Plan Patient has chronic kidney disease No Phalen, Waleska, SPIRAL TUBE WINDER Patient has chronic kidney disease Care Plan Patient has chronic kidney disease No Phalen, Waleska, SPIRAL TUBE WINDER Patient has diabetic neuropathy Care Plan Patient has diabetic neuropathy No Phalen, Waleska, SPIRAL TUBE WINDER Patient has diabetic neuropathy Care Plan Patient has diabetic neuropathy No Phalen, Waleska, SPIRAL TUBE WINDER Patient has diabetic neuropathy Care Plan Patient has diabetic neuropathy No Phalen, Waleska, SPIRAL TUBE WINDER Weekly blood pressure task Care Plan Weekly [...] complication, with long-term current use of insulin ([facility]) POCT GLUCOSE Routine 03/04/2025 10:27 AM EST Type 2 diabetes mellitus without complication, with long-term current use of insulin ([facility]) documented in this encounter Results * (ABNORMAL) POCT Hgb A1c (03/04/2025 10:28 AM EST) Hemoglobin A1C 6.6(A) 4.0 - 5.7 % QC Media Lot # [id number] Lot# Expiration Date ,027 Blood 03/04/2025 10:2 8 AM EST us Galeano Remarkarcelia SPIRAL TUBE WINDER POINT OF CARE TEST ENTER/EDIT ORDERABLES Final Result * POCT Glucose (03/04/2025 10:27 AM EST) Glucose Blood, POC 121 60 - 200 mg/dL QC Media Lot # [id number] Lot# Expiration Date 64,084 Blood Capillary blood specimen / Unknown 03/04/2025 10:27 AM EST us Galeano Phalen SPIRAL TUBE WINDER POINT OF CARE TEST ENTER/EDIT ORDERABLES Final Result documented in this encounter Visit Diagnoses Diagnosis Arthritis of both hips- Primary Type 2 diabetes mellitus without complication, with long-term current use of insulin ([facility]) Encounter for immunization Pain of right hip [...] documented as of this encounter Care Teams Vp Ad Sales West Relationship Specialty Start Date End Date Waleska Goldberg FNP [address] [place] [id number] PCP - General Family Medicine 12/12/21 Gloria Flores [employer] WorkerPit Boss 03/13/23 documented as of this encounter
--- NOTE | ~2025-03-06 | CT_ITS ---
CLINICAL HISTORY: left flank pain CT abdomen and pelvis without contrast Comparison: CT/REG/SR - CT ABDOMEN PELVIS W IV CON - 02/26/25 09:15 EST Findings: Bibasilar dependent subsegmental atelectasis. Gynecomastia. Left renal lower pole 0.6 cm, right renal lower pole 0.5 cm nonobstructing nephroliths. There is diffuse fecal material seen throughout the colon. Calcified coronary atherosclerotic disease. [id number] calcified atherosclerotic disease of the abdominal aorta. The appendix is not grossly identified. The prostate is hypertrophic, 5.5 cm. The bones are intact. Prior sternotomy. Chronic wedge compression fracture of the T11 vertebral body with less than 20% vertebral body height loss. IMPRESSION: 1. Left renal lower pole 0.6 cm and right renal lower pole 0.5 cm nonobstructing nephroliths. 2. Constipation. 3. Prostate hypertrophy, measuring 5.5 cm. 4. Calcified coronary atherosclerotic disease. 5. Gynecomastia. This document has been electronically signed by: Dave Rosa MD on 03/06/2025 17:15:19
[2025-03-06 13:21] VITALS: BP 134/75; PULSE 71; RESP 18; TEMP 36.7; O2SAT 100; BMI 23.6
--- NOTE | 2025-03-06 13:21 | ED.GENADULT ---
HPI - General Adult General Chief complaint: Abdominal Pain Stated complaint: lower abd pain Time Seen by Provider: 03/06/25 13:29 Source: patient, RN notes reviewed, old records reviewed and tonal regulator Mode of arrival: ambulatory Limitations: language barrier History of Present Illness ED Provider: Miley HPI narrative: Patient is a 59-year-old Cymro-speaking male with history of HTN, T2 dm, CABG, ischemic cardiomyopathy, chronic constipation, RA, BPH, nephrolithiasis presenting to the emergency department with complaint of sudden onset left lower quadrant abdominal pain radiating to flank and back since last night. Also complains of radiation of pain to his bladder. Stating that he had outpatient imaging done recently and was told 1 of his organs was inflamed but is unable to provide any additional details related to this. Denies any nausea, vomiting, diarrhea. Denies fever but does report that his eyes have felt hot. MD complaint: abdominal pain Related Data Home Medications ?Medication ?Instructions ?Recorded ?Confirmed atorvastatin 80 mg tablet 80 mg PO DAILY 04/11/20 09/30/24 carvedilol 3.125 mg tablet 3.125 mg PO BID 04/11/20 09/30/24 clopidogrel 75 mg tablet 75 mg PO DAILY 04/11/20 09/30/24 ezetimibe 10 mg tablet (Zetia) 10 mg PO DAILY 04/11/20 09/30/24 gabapentin 800 mg tablet 800 mg PO BID 04/11/20 09/30/24 isosorbide mononitrate 60 mg 60 mg PO DAILY 04/11/20 09/30/24 tablet,extended release 24 hr lisinopril 2.5 mg tablet 2.5 mg PO DAILY 04/11/20 09/30/24 melatonin 5 mg capsule See Rx Instructions PO ONCE 04/11/20 09/30/24 ammonium lactate 12 % topical cream 1 appl topical BID 07/11/21 09/30/24 fluticasone propionate 50 1 - 2 spray intranasal DAILY PRN 01/17/22 09/30/24 mcg/actuation nasal congestion spray,suspension naproxen 500 mg tablet 500 mg PO moderate pain 06/13/22 09/30/24 tizanidine 4 mg tablet 4 mg PO TID 06/13/22 09/30/24 aspirin 81 mg chewable tablet 81 mg PO QAM 07/25/22 09/30/24 pregabalin 100 mg capsule 100 mg PO ONCE 07/25/22 09/30/24 Previous Rx's ?Medication ?Instructions ?Recorded magnesium citrate 300 ml PO DAILY PRN constipation 02/28/20 #296 mL blood sugar diagnostic (FreeStyle 1 strip miscellaneous QID PRN for 09/19/20 Lite Strips) diabetes mellitus #150 strips blood-glucose meter (FreeStyle 1 ea miscellaneous DIRECTED #1 09/26/20 [place] Lite kit) kit lancets 33 gauge (TRUEplus Lancets) 1 gauge miscellaneous QID for 10/12/20 diabetes mellitus #100 ea flash glucose scanning reader #1 ea 01/01/21 (FreeStyle Alfredo 2 [place]) flash glucose sensor (FreeStyle #2 ea 01/01/21 Alfredo 2 Sensor kit) dicyclomine 20 mg tablet 20 mg PO QID PRN abdominal pain 02/06/21 #20 tabs insulin glargine 100 unit/mL (3 30 unit (0.3 mL) subcut DAILY #15 08/06/21 mL) subcutaneous pen (Lantus mL Solostar U-100 Insulin) metformin 500 mg tablet 1,000 mg (2 x 500 mg) PO BID 30 12/12/21 days #120 tabs pen needle, diabetic 32 gauge x See Rx Instructions .Route 01/31/22 5/32 (Pentips Pen Needle) .COMPLEX #200 ea diclofenac sodium 1 % topical gel 2 g topical QID 30 days #100 grams 02/27/22 insulin aspart U-100 100 unit/mL See Rx Instructions subcut QID #30 03/27/22 (3 mL) subcutaneous pen (Novolog mL FlexPen U-100 Insulin aspart) hydrocortisone 2.5 % topical cream 1 appl [place] BID PRN hemorrhoids #30 06/13/22 with perineal applicator grams (Proctozone-HC) polyethylene glycol 3350 17 17 g PO DAILY 30 days #510 grams 09/16/22 gram/dose oral powder (Miralax) lidocaine 5 % topical patch 1 patch topical DAILY #30 ea 06/10/23 acetaminophen 325 mg capsule 325 mg PO Q4H PRN pain #30 caps 07/14/23 (Tylenol) lidocaine 5 % topical patch 1 patch topical DAILY PRN pain #15 07/14/23 ea potassium citrate 10 mEq (1,080 20 meq (2 x 10 mEq (1,080 mg)) PO 12/24/23 mg) tablet,extended release BID 90 days #360 tabs acetaminophen 500 mg tablet 500 mg PO Q8H PRN pain #30 tabs 03/04/24 (Tylenol Extra Strength) ibuprofen 600 mg tablet 600 mg PO Q6H PRN fever or pain 03/20/24 #30 tabs calcium polycarbophil 625 mg 625 mg PO TID #270 tabs 04/12/24 tablet (Fiber-Lax) tadalafil 10 mg tablet 10 mg PO DAILY bladder stability 07/13/24 90 days #90 tabs bisacodyl 5 mg tablet,delayed 5 mg PO ONCE 1 day #3 tabs 07/28/24 release polyethylene glycol 3350 17 238 g PO ONCE #238 grams 07/28/24 gram/dose oral powder (Miralax) doxazosin 4 mg tablet 8 mg (2 x 4 mg) PO BEDTIME 90 days 08/09/24 #180 tabs ranolazine 500 mg tablet,extended 500 mg PO BID #180 tabs 08/16/24 release,12 hr methocarbamol 750 mg tablet 1,500 mg (2 x 750 mg) PO Q8H #20 08/19/24 tabs evolocumab 140 mg/mL subcutaneous 140 mg subcut Q2W #2 mL 08/20/24 pen injector (Shai Santamaria) nitroglycerin 0.4 mg sublingual 0.4 mg sublingual Q5M PRN angina 09/30/24 tablet pectoris #25 tabs docusate sodium 100 mg capsule 200 mg (2 x 100 mg) PO BEDTIME #60 11/09/24 (Stool Softener) caps finasteride 5 mg tablet 5 mg PO DAILY 90 days #90 tabs 01/04/25 furosemide 20 mg tablet 20 mg PO DAILY #90 tabs 01/04/25 albuterol sulfate 2.5 mg/3 mL 2.5 mg (3 mL) inhalation QID PRN 02/26/25 (0.083 %) solution for nebulization bronchospasm #75 mL amoxicillin 500 mg capsule 500 mg PO BID #10 caps 02/26/25 oxycodone 5 mg tablet 5 mg PO Q6H PRN pain #15 tabs 02/26/25 polyethylene glycol 3350 17 17 g PO DAILY #119 grams 03/06/25 gram/dose oral powder (Miralax) sennosides 8.6 mg capsule (senna) 8.6 mg PO BID PRN constipation #20 03/06/25 caps Allergies Allergy/AdvReac Type Severity Reaction Status Date / Time No Known Allergies (No Known Allergy Verified 03/06/25 13:22 Allergies*) Review of Systems Review of Systems: as per hpi Yes all other systems are reviewed and are negative Constitutional: Constitutional: Reports as per HPI PMFSH Past Medical History Medical History History of colon polyps Ischemic cardiomyopathy Atherosclerotic cardiovascular disease History of pancreatitis Hepatitis B Hepatitis C Chronic HFrEF (heart failure with reduced ejection fraction) Cardiomyopathy Type 2 diabetes mellitus with hyperglycemia, with long-term current use of insulin Type 2 diabetes mellitus with diabetic polyneuropathy Hyperlipidemia LDL goal <70 Essential hypertension Myocardial infarction Surgical History Hx of knee surgery Hx of colonoscopy History of appendectomy Hx of heart artery stent H/O coronary artery bypass surgery H/O cardiac catheterization Family History Family History Mother Diabetes Social History Social History Household Members: Spouse Alcohol intake: never Patient Tobacco Use Status: Never used Tobacco Advance Directives: No Advance Directives Information Provided: No Current occupational status: unemployed Physical Exam ED Vital Signs: Vital Signs - 24 hr 03/06/25 13:21 03/06/25 14:26 03/06/25 16:20 Temperature 98.0 F Pulse Rate 71 64 61 Respiratory Rate 18 16 20 Blood Pressure 134/75 132/78 149/91 H Pulse Oximetry 100 95 99 Oxygen Delivery Method Room Air Room Air Room Air BMI result Body Mass Index 23.6 Vital signs have been reviewed and appear to be correct. Blood pressure normal. Heart rate normal. Respiratory rate normal. Temperature normal. Oxygen saturation normal. Const General: cooperative and no acute distress Orientation/consciousness: oriented to person, oriented to place, oriented to time and patient oriented x3 Limitations: no limitations HENMT Head: Yes normocephalic and Yes atraumatic Ears: external ears normal General nose exam: Normal external nose present Face and sinus: Yes face symmetric Mouth: oropharynx normal and moist mucous membranes Throat: Yes uvula midline Eyes Pupils: Equal, round and reactive pupils present Neck Neck: Yes normal visual inspection and Yes supple Resp Effort & Inspection: normal respiratory effort and able to speak in complete sentences Auscultation: clear to auscultation bilaterally Cardio Rate: regular rate Rhythm: regular rhythm Heart sounds: S1 normal heart sound present and S2 normal heart sound present GI Palpation (GI): Soft to palpation, nontender, no guarding and No Rebound tenderness present Auscultation: normoactive bowel sounds General: Yes no CVA tenderness Back/Spine/Pelvis Back: no CVA tenderness Skin General skin exam: elasticity normal and turgor normal Neuro General: oriented to person, oriented to place, oriented to time, patient oriented x3, moves all extremities, no focal motor deficits and CN's II-XI intact bilaterally Cranial nerves: Yes Equal, round and reactive pupils present Cognition (Neuro): normal cognition Extrem General: Yes full ROM, Yes no pedal edema and Yes no calf tenderness Psych Mental Status: mental status grossly normal Affect: normal affect Thought process: Normal thought process present Course Course Course Narrative: Rapid medical examination performed in triage by Torie Pozo PA-C: Patient is a 59 year old assigned male at presenting to the emergency department with left sided abdominal pain that feels like a kidney stone. Detailed physical exam and review of systems are deferred to the production analyst. Labs ordered. Patient placed back in the waiting room pending room availability and results. Medications Administered Discontinued Medications Generic Name Dose Route Start Last Admin Trade Name Claudio PRN Reason Stop Dose Admin Morphine Sulfate 4 mg 03/06/25 13:56 03/06/25 14:23 Morphine Sulfate 4 Mg/Ml Cartridge IVPUSH 03/06/25 13:57 4 mg ONCE ONE Administration Protocol Medical Decision Making Medical Decision Making MDM Narrative: Patient is a 59-year-old Cymro-speaking male with history of HTN, T2 dm, CABG, ischemic cardiomyopathy, chronic constipation, RA, BPH, nephrolithiasis presenting to the emergency department with complaint of sudden onset left lower quadrant abdominal pain radiating to flank and back since last night. On exam patient is awake, A+Ox3, VS WNL, afebrile, normal neurological exam without focal deficits, physical exam findings as above. Given reported symptoms and physical exam findings, initial differential includes but is not limited to obstructing calculi, renal colic, UTI, constipation, diverticulitis. Labs notable for no leukocytosis, no anemia, no significant electrolyte abnormalities, chronically elevated T bili and alk phos. UA is without evidence of infection. CT A/P notable for no obstructing calculi, constipation, hypertrophic prostate. My interpretation is in agreement with the radiologist's interpretation. Results discussed with patient all questions answered. Patient reports pain has improved while in the emergency department. Differential Diagnosis Differential Diagnoses: The differential diagnosis associated with the presentation includes as per [facility] Admission/Observation Consideration of admission/observation: Escalation of care including admission/observation considered Patient would have been admitted to the hospital and transferred to appropriate facility had their clinical presentation warranted hospital admission. Lab Data [facility] Lab Attestation statement: I reviewed the patient's lab results. as per [facility] 03/06/25 14:20 03/06/25 14:20 Labs: Lab Results 03/06/25 03/06/25 Range/Units 14:20 16:22 WBC 5.6 (4.8-10.8) X10*3/uL RBC 5.32 (4.60-5.80) X10*6/uL Hgb 17.0 (14.0-18.0) g/dl Hct 49.6 (42.0-52.0) % MCV 93.2 (80.0-98.0) fL MCH 32.0 (27.0-33.0) pg MCHC 34.3 (31.0-36.0) g/dl RDW 12.7 (11.0-16.0) % Plt Count 180 (160-400) X10*3/uL MPV 10.4 (9.4-12.4) fL Immature Gran % (Auto) 0.2 (0.0-0.4) % Neut % (Auto) 58.9 (45-73) % Lymph % (Auto) 28.1 (20-40) % [place] % (Auto) 8.9 (2-11) % Eos % (Auto) 3.2 (0-4) % Baso % (Auto) 0.7 (0-2) % Lymph # (Auto) 1.6 (1.2-4.9) X10*3/uL [place] # (Auto) 0.5 (0.1-1.2) X10*3/uL Eos # (Auto) 0.2 (0.0-0.4) X10*3/uL Baso # (Auto) 0.0 (0.0-0.2) X10*3/uL Abs Immat Gran (auto) 0.01 (0.00-0.03) X10*3/uL Absolute Neuts (auto) 3.3 (2.0-8.3) x10*3/uL Absolute Nucleated RBC 0.000 (0.0-0.012) X10*3/uL Nucleated RBC % (auto) 0.0 (0.0-0.2) /100WBC Sodium 140 (135-145) mmol/L Potassium 4.2 (3.3-5.1) mmol/L Chloride 106 (96-108) mmol/L Carbon Dioxide 26 (22-29) mmol/L Anion Gap 12 (12-20) BUN 24 H (9-16) mg/dL Creatinine 1.29 (0.5-1.4) mg/dL Estim Creat Clear Calc 61.6 Estimated GFR 57 Random Glucose 173 H (60-115) mg/dL Calcium 9.5 D (8.4-10.2) mg/dL Total Bilirubin 1.9 H (0.0-1.0) mg/dL AST 34 (5-37) U/L ALT 32 (0-40) U/L Alkaline Phosphatase 123 H (39-117) U/L Total Protein 7.3 (6.5-8.0) g/dL Albumin 4.5 (3.5-5.0) g/dL Urine Color Yellow Urine Appearance Clear Urine pH 6.0 (5.0-9.0) Ur Specific [place] >= 1.030 H (1.005-1.025) Urine Protein Negative (Neg-Trace) mg/dL Urine Glucose (UA) >=1000 H (Negative) mg/dL Urine Ketones Negative (Negative) mg/dL Urine Blood Negative (Negative) Urine Nitrite Negative (Negative) Ur Leukocyte Esterase Negative (Negative) Urine RBC 0-2 (0-2) /HPF Urine WBC 0-5 (0-5) /HPF Ur Squamous Epith Cells 0-2 (0-2) /HPF Urine Bacteria None Seen (None Seen) Hyaline Casts 0-2 (0-2) /LPF Independent Interpretation I performed an independent interpretation of an: CT Scan Interpretation: CT abdomen pelvis notable for no obstructing calculi, constipation, prostate hypertrophy Radiology Impression Discussion of test interpretation with radiology: I have reviewed the radiologist's reading. Radiologist Impression: IMPRESSION: 1. Left renal lower pole 0.6 cm and right renal lower pole 0.5 cm nonobstructing nephroliths. 2. Constipation. 3. Prostate hypertrophy, measuring 5.5 cm. 4. Calcified coronary atherosclerotic disease. 5. Gynecomastia. External Record Review External record reviewed: Inpatient record, Office record and Outpatient record Prescription Management I considered prescription management with: Other Discharge Plan Discharge Clinical Impression: Constipation Patient Disposition: Home, Self-Care Instructions: Constipation (DC) Additional Instructions: You were evaluated in the emergency department today for abdominal pain. Your labs were reassuring and your urine did not appear infected. Your CT scan of your abdomen and pelvis showed constipation and there was no evidence of an obstructing kidney stone. We recommend that you follow-up with a raschel knitting machine operator and urologist regarding your symptoms. We have sent prescriptions for MiraLax and senna to the pharmacy, take these as prescribed. Return to the emergency department if you develop worsening pain, persistent vomiting, fever 100.4? F or greater, blood in your vomit or stool or any other new or concerning symptoms. Prescriptions: New polyethylene glycol 3350 [Miralax] 17 gram/dose powder 17 g PO DAILY Qty: 119 0RF senna 8.6 mg capsule 8.6 mg PO BID PRN (Reason: constipation) Qty: 20 0RF No Action blood sugar diagnostic [FreeStyle Lite Strips] Strip 1 strip miscellaneous QID PRN (Reason: for diabetes mellitus) Qty: 150 11RF blood-glucose meter [FreeStyle [place] Lite] Kit 1 ea miscellaneous DIRECTED Qty: 1 0RF lancets [TRUEplus Lancets] 33 gauge misc 1 gauge miscellaneous QID Qty: 100 11RF metformin 500 mg tablet 1,000 mg PO BID 30 Days Qty: 120 4RF pen needle, diabetic [Pentips Pen Needle] 32 gauge x 5/32 needle See Rx Instructions .ROUTE .COMPLEX Qty: 200 2RF Dose Instruction: USE SIX TIMES DAILY DIRECTED Rx Instructions: USE SIX TIMES DAILY DIRECTED insulin aspart U-100 [Novolog FlexPen U-100 Insulin] 100 unit/mL (3 mL) insulin pen See Rx Instructions subcut QID Qty: 30 0RF Rx Instructions: 6-8 units with meals, 2 units with snack subcut 4 times a day; potassium citrate 10 mEq (1,080 mg) tablet extended release 20 meq PO BID 90 Days Qty: 360 1RF calcium polycarbophil [Fiber-Lax] 625 mg tablet 625 mg PO TID Qty: 270 1RF doxazosin 4 mg tablet 8 mg PO BEDTIME 90 Days Qty: 180 1RF ranolazine 500 mg tablet extended release 12 hr 500 mg PO BID Qty: 180 3RF Repatha SureClick 140 mg/mL pen injector 140 mg subcut Q2W Qty: 2 5RF docusate sodium [Stool Softener] 100 mg capsule 200 mg PO BEDTIME Qty: 60 5RF finasteride 5 mg tablet 5 mg PO DAILY 90 Days Qty: 90 0RF furosemide 20 mg tablet 20 mg PO DAILY Qty: 90 3RF magnesium citrate Solution 300 ml PO DAILY PRN (Reason: constipation) Qty: 296 0RF dicyclomine 20 mg tablet 20 mg PO QID PRN (Reason: abdominal pain) Qty: 20 0RF methocarbamol 750 mg tablet 1,500 mg PO Q8H Qty: 20 0RF lidocaine 5 % adhesive patch,medicated 1 patch topical DAILY Qty: 30 0RF Rx Instructions: leave on most painful area for up to 12 hrs lidocaine 5 % adhesive patch,medicated 1 patch topical DAILY PRN (Reason: pain) Qty: 15 0RF Rx Instructions: leave on most painful area for up to 12 hrs acetaminophen [Tylenol] 325 mg capsule 325 mg PO Q4H PRN (Reason: pain) Qty: 30 0RF acetaminophen [Tylenol Extra Strength] 500 mg tablet 500 mg PO Q8H PRN (Reason: pain) Qty: 30 0RF ibuprofen 600 mg tablet 600 mg PO Q6H PRN (Reason: fever or pain) Qty: 30 0RF oxycodone 5 mg tablet 5 mg PO Q6H PRN (Reason: pain) Qty: 15 0RF Rx Instructions: partial filing upon pt request; Partial Fill upon patient request. albuterol sulfate 2.5 mg /3 mL (0.083 %) solution for nebulization 2.5 mg inhalation QID PRN (Reason: bronchospasm) Qty: 75 0RF amoxicillin 500 mg capsule 500 mg PO BID Qty: 10 0RF clopidogrel 75 mg tablet 75 mg PO DAILY carvedilol 3.125 mg tablet 3.125 mg PO BID Rx Instructions: must administer with a meal/food lisinopril 2.5 mg tablet 2.5 mg PO DAILY isosorbide mononitrate 60 mg tablet extended release 24 hr 60 mg PO DAILY atorvastatin 80 mg tablet 80 mg PO DAILY melatonin 5 mg capsule See Rx Instructions PO ONCE Rx Instructions: 5 mg (2 tab) PO once; gabapentin 800 mg tablet 800 mg PO BID ezetimibe [Zetia] 10 mg tablet 10 mg PO DAILY (DME) FreeStyle Alfredo 2 [place] Misc See Rx Instructions .ROUTE .MEDSUPPLY Qty: 1 0RF Rx Instructions: As directed (DME) FreeStyle Alfredo 2 Sensor Kit See Rx Instructions .ROUTE .MEDSUPPLY Qty: 2 11RF Rx Instructions: As directed every 2 weeks ammonium lactate 12 % cream 1 appl topical BID Lantus Solostar U-100 Insulin 100 unit/mL (3 mL) insulin pen 30 unit subcut DAILY Qty: 15 4RF fluticasone propionate 50 mcg/actuation spray,suspension 1 - 2 spray intranasal DAILY PRN (Reason: congestion) aspirin 81 mg tablet,chewable 81 mg PO QAM diclofenac sodium 1 % gel 2 g topical QID 30 Days Qty: 100 8RF Rx Instructions: apply to hand; for hand includes palm/fingers/back of hand pregabalin 100 mg capsule 100 mg PO ONCE naproxen 500 mg tablet 500 mg PO tizanidine 4 mg tablet 4 mg PO TID hydrocortisone [Proctozone-HC] 2.5 % cream with perineal applicator 1 appl [place] BID PRN (Reason: hemorrhoids) Qty: 30 3RF Rx Instructions: apply [place] BID prn polyethylene glycol 3350 [Miralax] 17 gram/dose powder 17 g PO DAILY 30 Days Qty: 510 6RF tadalafil 10 mg tablet 10 mg PO DAILY 90 Days Qty: 90 1RF nitroglycerin 0.4 mg tablet, sublingual 0.4 mg sublingual Q5M PRN (Reason: angina pectoris) Qty: 25 1RF Rx Instructions: do not exceed 3 doses per episode polyethylene glycol 3350 [Miralax] 17 gram/dose powder 238 g PO ONCE Qty: 238 0RF Rx Instructions: per colonoscopy prep instructions bisacodyl 5 mg tablet,delayed release (DR/EC) 5 mg PO ONCE 1 Days Qty: 3 0RF Rx Instructions: per colonoscopy instructions Print Language: Cymro
--- OUTSIDE RECORDS SUMMARY | 2025-03-06 13:58 | XMS_ITS | Encounter Summary ---
Author Organization [employer] Address [address] [place] [address] Care Team Providers Care Product Builder Name Role Phone Waleska Goldberg SHOVEL ENGINEER Primary Care Provider [phone] Abhishek Murdock RN Unavailable [phone] Reason for Visit * Reason Onset Date Comments Referral 06/30/2024 Encounter Details Date Type Department Care Team ([facility] Contact Info) Description 06/30/2024 Telephone [facility] [address], [place] [id number] Waleska Goldberg FNP [address] [place] [address] Referral Social History Tobacco Use Types Packs/Day [...] PM EDT Insurance authorization for 20 visits #[id number] faxed to Jan Shen @ [phone]. * Telephone Encounter - Yvonne Palomino - [...] documented as of this encounter Care Teams Product Builder Relationship Specialty Start Date End Date Waleska Goldberg FNP [address] [place] [address] PCP - General Family Medicine 12/12/21 Abhishek Murdock RN [address] [place] [id number] Registered Nurse Family Medicine 12/20/24 01/07/25 Gloria Flores Button TackerChecker In 03/13/23 documented as of this encounter
--- OUTSIDE RECORDS SUMMARY | 2025-03-06 13:58 | XMS_ITS | Encounter Summary ---
Author Organization [employer] Address [address] [place] [address] Care Team Providers Care Special Services Agent Name Role Phone Waleska Goldberg Primary Care Provider Encounter Details Date Type Department Care Team ([facility] st Contact Info) Description 03/02/2025 Telephone [facility] MEDICINE [address] [place] [address] Waleska Goldberg FNP [address] [place], [place] [id number] Social History Tobacco Use Types Packs/Day Years [...] past 12 months, has t he electric, [employer], oil or water [employer] threatened to shut off services in your [...] encounter Miscellaneous Notes * Telephone Encounter - Tenisha Garrett - 03/03/2025 9:47 AM EST Tc from Armaan Bah retuning your call * Telephone Encounter - Claudette Pederson LPN - 03/02/2025 11:07 AM EST TC to Angelo Arteaga, requesting completed current TJ to be faxed. Left detailed VM. Initial TJ faxed by Angelo was out of date and did not include PCP. documented in this encounter Plan of Treatment Not on file documented as of this encounter Goals Goal Patient Goal Type Associated Problems Recent Progress Patient-Stated? Author Help patients manage their type 2 diabetes Care Plan Help patients manage their type 2 diabetes No Claudette Pederson LPN Weekly blood pressure task Care Plan Weekly blood pressure task Claudette Michael LPN Help patients manage their type 2 diabetes Care Plan Help patients manage their type 2 diabetes Claudette Michael LPN Patient has chronic kidney disease Care Plan Patient has chronic kidney disease Claudette Michael LPN Help patients manage their type 2 diabetes Care Plan Help patients manage their type 2 diabetes No Claudette Pederson LPN Patient has diabetic neuropathy Care Plan Patient has diabetic neuropathy No [place], Claudette, HOT KETTLE TENDER Weekly blood pressure task Care Plan Weekly blood pressure task No DaciaRadhaClaudette, HOT KETTLE TENDER Weekly blood pressure task Care Plan Weekly blood pressure task No [place] Claudette, HOT KETTLE TENDER Patient has chronic kidney disease Care Plan Patient has chronic kidney disease No [place] Claudette, HOT KETTLE TENDER Patient has chronic kidney disease Care Plan Patient has chronic kidney disease No DaciaRadhaClaudette, HOT KETTLE TENDER Patient has diabetic neuropathy Care Plan Patient has diabetic neuropathy No [place]RadhaClaudette, HOT KETTLE TENDER Patient has diabetic neuropathy Care Plan Patient has diabetic neuropathy No [place]RadhaClaudette, HOT KETTLE TENDER Weekly blood pressure task Care Plan Weekly [...] Plan Weekly blood pressure task No DaciaRadhaClaudette, HOT KETTLE TENDER Weekly blood pressure task Care Plan Weekly blood pressure task No DaciaRadhaClaudette, HOT KETTLE TENDER Weekly blood pressure task Care Plan Weekly blood pressure task No DaciaRadhaClaudette, HOT KETTLE TENDER Patient has chronic kidney disease Care Plan Patient has chronic kidney disease No DaicaRadhaClaudette, HOT KETTLE TENDER Patient has chronic kidney disease Care Plan Patient has chronic kidney disease No DaciaRadhaClaudette, HOT KETTLE TENDER Patient has chronic kidney disease Care Plan Patient has chronic kidney disease No DaciaRadhaClaudette, HOT KETTLE TENDER Patient has diabetic neuropathy Care Plan Patient has diabetic neuropathy No [place]RadhaClaudette, HOT KETTLE TENDER Patient has diabetic neuropathy Care Plan Patient has diabetic neuropathy No Dacia, Claudette, HOT KETTLE TENDER Patient has diabetic neuropathy Care Plan Patient has diabetic neuropathy No Dacia, Claudette, HOT KETTLE TENDER Weekly blood pressure task Care Plan Weekly blood pressure task No DaciaRadhaClaudette, HOT KETTLE TENDER Weekly blood pressure task Care Plan Weekly blood pressure task No [place] Claudette, HOT KETTLE TENDER Weekly blood pressure task Care Plan Weekly blood pressure task No [place], Claudette, HOT KETTLE TENDER Patient has chronic kidney disease Care Plan Patient has chronic kidney disease No Dacia Claudette, HOT KETTLE TENDER Patient has chronic kidney disease Care Plan Patient has chronic kidney disease No [place], Claudette, HOT KETTLE TENDER Patient has chronic kidney disease Care Plan Patient has chronic kidney disease No Dacia Claudette, HOT KETTLE TENDER Patient has diabetic neuropathy Care Plan Patient has diabetic neuropathy No [place], Claudette, HOT KETTLE TENDER Patient has diabetic neuropathy Care Plan Patient has diabetic neuropathy No Dacia, Claudette, HOT KETTLE TENDER Patient has diabetic neuropathy Care Plan Patient has diabetic neuropathy No Dacia, Claudette, HOT KETTLE TENDER Weekly blood pressure task Care Plan Weekly blood pressure task No Phalen, Waleska, STAFF DEVELOPMENT COORDINATOR RN Weekly blood pressure task Care Plan Weekly blood pressure task No Phalen, Waleska, STAFF DEVELOPMENT COORDINATOR RN Weekly blood pressure task Care Plan Weekly blood pressure task No Phalen, Waleska, STAFF DEVELOPMENT COORDINATOR RN Patient has chronic kidney disease Care Plan Patient has chronic kidney disease No Phalen, Waleska, STAFF DEVELOPMENT COORDINATOR RN Patient has chronic kidney disease Care Plan Patient has chronic kidney disease No Phalen, Waleska, STAFF DEVELOPMENT COORDINATOR RN Patient has chronic kidney disease Care Plan Patient has chronic kidney disease No Phalen, Waleska, STAFF DEVELOPMENT COORDINATOR RN Patient has diabetic neuropathy Care Plan Patient has diabetic neuropathy No Phalen, Waleska, STAFF DEVELOPMENT COORDINATOR RN Patient has diabetic neuropathy Care Plan Patient has diabetic neuropathy No Phalen, Waleska, STAFF DEVELOPMENT COORDINATOR RN Patient has diabetic neuropathy Care Plan Patient has diabetic neuropathy No Phalen, Waleska, STAFF DEVELOPMENT COORDINATOR RN Weekly blood pressure task Care Plan Weekly blood pressure task No Omaira Means Weekly blood pressure task Care Plan Weekly blood pressure task No Clary Omaira Weekly blood pressure task Care Plan Weekly blood pressure task No Clary Omaiar Patient has chronic kidney disease Care Plan Patient has chronic kidney disease No Clary Omaira Patient has chronic kidney disease Care Plan Patient has chronic kidney disease No Clary Omaira Patient has chronic kidney disease Care Plan Patient has chronic kidney disease No Clary Omaira Patient has diabetic neuropathy Care Plan Patient has diabetic neuropathy No Clary Omaira Patient has diabetic neuropathy Care Plan Patient has diabetic neuropathy No Omaira Means Patient has diabetic neuropathy Care Plan Patient has diabetic neuropathy No Omaira Means documented as of this encounter Visit Diagnoses Not on filedocumented in this encounter Additional Health Concerns Active [...] documented as of this encounter Care Teams Special Services Agent Relationship Specialty Start Date End Date Waleska Goldberg FNP [address] [place] [id number] PCP - General Family Medicine 12/12/21 Gloria Flores Sow ManagerTimber Hand 03/13/23 documented as of this encounter
--- OUTSIDE RECORDS SUMMARY | 2025-03-06 13:58 | XMS_ITS | Encounter Summary ---
Author Organization [employer] Address [address] [facility] 7t [place] [address] Care Team Providers Care Scientific Programmer Analyst Name Role Phone Waleska Goldberg Primary Care Provider [phone] Abhishek Murdock RN Unavailable [phone] Reason for Visit * Reason Onset Date Comments Med Refill 05/06/2024 Encounter Details Date Type Department Care Team ([facility] st Contact Info) Description 05/06/2024 Telephone [facility] MEDICINE [address] [place] [address] Waleska Goldberg FNP [address] [place] [address] Med Refill Social History Tobacco Use Types [...] 10-325 MG tablet To be sent to: [facility] - [place], [place] - [address] [place] [address] documented in this encounter Plan of Treatment Not on file documented as of this encounter Visit Diagnoses Not on filedocumented in this encounter Additional Health Concerns Assessment Noted Time PHQ-9 Depression Total Score: 6 07/30/19 24 10:53 AM EDT documented as of this encounter Care Teams Scientific Programmer Analyst Relationship Specialty Start Date End Date Waleska Goldberg FNP [address] [place] [address] PCP - General Family Medicine 12/12/21 Abhishek Murdock, FARSHAD [address] [place] [address] Registered Nurse Family Medicine 12/20/24 01/07/25 Gloria Flores Buffing Wheel InspectorDesign And Sales Consultant 03/13/23 documented as of this encounter
--- OUTSIDE RECORDS SUMMARY | 2025-03-06 13:58 | XMS_ITS | Encounter Summary ---
Author Organization [employer] Address [address] 7[address] [place] [address] Care Team Providers Care Director Of Occupational Health Name Role Phone Waleska Goldberg UNIT TENDER Primary Care Provider [phone] Encounter Details Date Type Department Care Team (Latest Contact Info) Description 03/04/2025 Travel Social History Tobacco Use Types Packs/Day [...] their type 2 diabetes No Romana Pedersone CNC MACHINIST 2ND SHIFT Weekly blood pressure task Care Plan Weekly blood pressure task No Romana Pedersone CNC MACHINIST 2ND SHIFT Help patients manage their type 2 diabetes Care Plan Help patients manage their type 2 diabetes No Romana Pedersone CNC MACHINIST 2ND SHIFT Patient has chronic kidney disease Care Plan Patient has chronic kidney disease No Romana Pedersone, CNC MACHINIST 2ND SHIFT Help patients manage their type 2 diabetes Care Plan Help patients manage their type 2 diabetes No Romana Pedersone CNC MACHINIST 2ND SHIFT Patient has diabetic neuropathy Care Plan Patient has diabetic neuropathy No Romana Pedersone, CNC MACHINIST 2ND SHIFT Weekly blood pressure task Care Plan Weekly blood pressure task No Romana Pedersone CNC MACHINIST 2ND SHIFT Weekly blood pressure task Care Plan Weekly blood pressure task No Radha Pedersondie, CNC MACHINIST 2ND SHIFT Patient has chronic kidney disease Care Plan Patient has chronic kidney disease No Radha Pedersondie, CNC MACHINIST 2ND SHIFT Patient has chronic kidney disease Care Plan Patient has chronic kidney disease No Romana Pedersone, CNC MACHINIST 2ND SHIFT Patient has diabetic neuropathy Care Plan Patient has diabetic neuropathy No Romana Pedersone, CNC MACHINIST 2ND SHIFT Patient has diabetic neuropathy Care Plan Patient has diabetic neuropathy No Romana Pedersone, CNC MACHINIST 2ND SHIFT Weekly blood pressure task Care Plan Weekly blood pressure task No Flaco Kothariha Weekly blood pressure task Care Plan Weekly blood pressure task No Josep Kothari Weekly blood pressure task Care Plan Weekly blood pressure task No Fred Kothariysha Patient has chronic kidney disease Care Plan Patient has chronic kidney disease No Fred Kothariysha Patient has chronic kidney disease Care Plan Patient has chronic kidney disease No Fred Kothariysha Patient has chronic kidney disease Care Plan Patient has chronic kidney disease No Josep Kothari Patient has diabetic neuropathy Care Plan Patient has diabetic neuropathy No Kothari, Jaysha Patient has diabetic neuropathy Care Plan Patient has diabetic neuropathy No Kothari, Jaysha Patient has diabetic neuropathy Care Plan Patient has diabetic neuropathy No KothariFredysha Weekly blood pressure task Care Plan Weekly blood pressure task No Dacia, Claudette, CNC MACHINIST 2ND SHIFT Weekly blood pressure task Care Plan Weekly blood pressure task No [place], Claudette, CNC MACHINIST 2ND SHIFT Weekly blood pressure task Care Plan Weekly blood pressure task No [place], Claudette, CNC MACHINIST 2ND SHIFT Patient has chronic kidney disease Care Plan Patient has chronic kidney disease No Dacia, Claudette, CNC MACHINIST 2ND SHIFT Patient has chronic kidney disease Care Plan Patient has chronic kidney disease No Dacia, Claudette, CNC MACHINIST 2ND SHIFT Patient has chronic kidney disease Care Plan Patient has chronic kidney disease No Dacia, Claudette, CNC MACHINIST 2ND SHIFT Patient has diabetic neuropathy Care Plan Patient has diabetic neuropathy No [place], Claudette, CNC MACHINIST 2ND SHIFT Patient has diabetic neuropathy Care Plan Patient has diabetic neuropathy No Dacia, Claudette, CNC MACHINIST 2ND SHIFT Patient has diabetic neuropathy Care Plan Patient has diabetic neuropathy No Dacia, Claudette, CNC MACHINIST 2ND SHIFT Weekly blood pressure task Care Plan Weekly blood pressure task No [place], Claudette, CNC MACHINIST 2ND SHIFT Weekly blood pressure task Care Plan Weekly blood pressure task No Dacia, Claudette, CNC MACHINIST 2ND SHIFT Weekly blood pressure task Care Plan Weekly blood pressure task No Dacia, Claudette, CNC MACHINIST 2ND SHIFT Patient has chronic kidney disease Care Plan Patient has chronic kidney disease No Dacia, Claudette, CNC MACHINIST 2ND SHIFT Patient has chronic kidney disease Care Plan Patient has chronic kidney disease No Dacia, Claudette, CNC MACHINIST 2ND SHIFT Patient has chronic kidney disease Care Plan Patient has chronic kidney disease No [place], Claudette, CNC MACHINIST 2ND SHIFT Patient has diabetic neuropathy Care Plan Patient has diabetic neuropathy No [place], Claudette, CNC MACHINIST 2ND SHIFT Patient has diabetic neuropathy Care Plan Patient has diabetic neuropathy No [place], Claudette, CNC MACHINIST 2ND SHIFT Patient has diabetic neuropathy Care Plan Patient has diabetic neuropathy No Dacia, Claudette, CNC MACHINIST 2ND SHIFT Weekly blood pressure task Care Plan Weekly blood pressure task No Phalen, Waleska, UNIT TENDER Weekly blood pressure task Care Plan Weekly blood pressure task No Phalen, Waleska, UNIT TENDER Weekly blood pressure task Care Plan Weekly blood pressure task No Phalen, Waleska, UNIT TENDER Patient has chronic kidney disease Care Plan Patient has chronic kidney disease No Phalen, Waleska, UNIT TENDER Patient has chronic kidney disease Care Plan Patient has chronic kidney disease No Phalarcelia Waleska, UNIT TENDER Patient has chronic kidney disease Care Plan Patient has chronic kidney disease No Phalarcelia Waleska, UNIT TENDER Patient has diabetic neuropathy Care Plan Patient has diabetic neuropathy No Phalarcelia Waleska, UNIT TENDER Patient has diabetic neuropathy Care Plan Patient has diabetic neuropathy No Phalarcelia Waleska, UNIT TENDER Patient has diabetic neuropathy Care Plan Patient has diabetic neuropathy No Phalarcelia Waleska, UNIT TENDER Weekly blood pressure task Care Plan Weekly blood pressure task No Means, Omaira Weekly blood pressure task Care Plan Weekly blood pressure task No Means, Omaira Weekly blood pressure task Care Plan Weekly blood pressure task No [place], Omaira Patient has chronic kidney disease Care [...] Patient has diabetic neuropathy No Means, Omaira documented as of this encounter Visit Diagnoses [...] documented as of this encounter Care Teams Director Of Occupational Health Relationship Specialty Start Date End Date Waleska Goldberg FNP [address] [place] [id number] PCP - General Family Medicine 12/12/21 Gloria Flores Retail Marketing ManagerLens Edge Grinder Machine 03/13/23 documented as of this encounter
--- OUTSIDE RECORDS SUMMARY | 2025-03-06 13:58 | XMS_ITS | Encounter Summary ---
Author Organization [employer] Address [address] [facility] 7t [place] [address] Care Team Providers Care Environmental Intern Name Role Phone Waleska Goldbreg Primary Care Provider [phone] Abhishek Murdock RN Unavailable [phone] Reason for Visit * Reason Onset Date Comments Hospital Follow-up 05/04/2024 Encounter Details Date Type Department Care Team ([facility] st Contact Info) Description 05/04/2024 Telephone [facility] MEDICINE [address] [place] [address] Waleska Goldberg FNP [address] [place] [address] Hospital Follow-up Social History Tobacco Use Types [...] from pt requesting a HDF appt. Hospital: [facility] Date of admission: 04/29/2024 Discharge date: 05/01/2024 Diagnosed: Kidney stones , pt satated that at ER they placed a godfrey that has to be remove *Send message to Lionel Clinical Care Coordinators documented in this encounter Plan of Treatment Not on file documented as of this encounter Visit Diagnoses Not on filedocumented in this encounter Additional Health Concerns Assessment Noted Time PHQ-9 Depression Total Score: 6 07/30/19 24 10:53 AM EDT documented as of this encounter Care Teams Environmental Intern Relationship Specialty Start Date End Date Waleska Goldberg FNP [address] [place] [address] PCP - General Family Medicine 12/12/21 Abhishek Murdock, RN [address] [place] [address] Registered Nurse Family Medicine 12/20/24 [facility] Head Of InsightBrake Operator Helper 03/13/23 documented as of this encounter
--- OUTSIDE RECORDS SUMMARY | 2025-03-06 13:58 | XMS_ITS | Encounter Summary ---
Author Organization [employer] Address [address] [facility] 7t [place] [address] Care Team Providers Care Costume Mistress Name Role Phone Waleska Goldberg Primary Care Provider [phone] Abhishek Murdock RN Unavailable [phone] Reason for Visit * Reason Comments Med Refill Encounter Details Date Type Department Care Team ([facility] st Contact Info) Description 09/28/2023 Refill [facility] MEDICINE [address] [place] [address] Waleska Goldberg FNP [address] [place] [address] Insomnia, unspecified type Social History Tobacco Use [...] documented as of this encounter Care Teams Costume Mistress Relationship Specialty Start Date End Date Waleska Goldberg FNP [address] [place] [id number] PCP - General Family Medicine 12/12/21 Abhishek Murdock RN [address] [place] [address] Registered Nurse Family Medicine 12/20/24 01/07/25 Gloria Flores Retail AttendantThreader 03/13/23 documented as of this encounter
--- OUTSIDE RECORDS SUMMARY | 2025-03-06 13:58 | XMS_ITS | Encounter Summary ---
Author Organization [employer] Address [address] [facility] 7t [place] [address] Care Team Providers Care Charge Histotechnologist Name Role Phone Waleska Goldberg Primary Care Provider [phone] Abhishek Murdock RN Unavailable [phone] Reason for Visit * Reason Onset Date Comments Med Refill 06/01/2024 Encounter Details Date Type Department Care Team (Late st Contact Info) Description 06/01/2024 Refill [facility] MEDICINE [address] [place] [address] Waleska Goldberg FNP [address] [place] [address] Fracture of left patella with routine healing [...] up for visit. [facility]. Thank you! * Telephone Encounter - Dee Nuñez - 06/01/2024 3:53 PM EST TC from pt requesting medication refill. Medications needing refill : oxyCODONE-acetaminophen (Percocet) 10-325 MG tablet To be sent to: [facility]/pharmacy #[id number] [facility], [place] - [address] [place] [address] documented in this encounter Plan of Treatment Not on file documented as of this encounter Visit Diagnoses Diagnosis Fracture of left patella with routine healing documented in this encounter Additional Health Concerns Assessment Noted Time PHQ-9 Depression Total Score: 6 07/30/19 24 10:53 AM EDT documented as of this encounter Care Teams Charge Histotechnologist Relationship Specialty Start Date End Date Waleska Goldberg FNP [address] [place] [address] PCP - General Family Medicine 12/12/21 Abhishek Murdock, FARSHAD [address] [place] [address] Registered Nurse Family Medicine 12/20/24 01/07/25 Gloria Flores Central Sterile TechComputer Information Systems Professor 03/13/23 documented as of this encounter
--- OUTSIDE RECORDS SUMMARY | 2025-03-06 13:58 | XMS_ITS | Encounter Summary ---
Author Organization [employer] Address [address] [facility] 7t [place] [address] Care Team Providers Care Milk Handler Name Role Phone Waleska Goldberg Primary Care Provider [phone] Abhishek Murdock RN Unavailable [phone] Encounter Details Date Type Department Care Team (Latest Contact Info) Description 03/24/2019 Abstract [facility] CONVERSIONS Dental, Provider, DDS Social History Tobacco [...] on filedocumented in this encounter Care Teams Milk Handler Relationship Specialty Start Date End Date Waleska Goldberg FNP [address] [place] [address] PCP - General Family Medicine 12/12/21 Abhishek Murdock, RN [address] [place] [id number] Registered Nurse Family Medicine 12/20/24 01/07/25 Gloria Flores Clinical Business AnalystCensus Enumerator 03/13/23 documented as of this encounter
--- OUTSIDE RECORDS SUMMARY | 2025-03-06 13:58 | XMS_ITS | Encounter Summary ---
Author Organization [employer] Address [address] [facility] 7t [place] [address] Care Team Providers Care Electrical Line Worker Name Role Phone Waleska Goldberg Primary Care Provider [phone] Abhishek Murdock RN Unavailable [phone] Encounter Details Date Type Department Care Team (Latest Contact Info) Description 07/10/2020 Abstract [facility] CONVERSIONS Dental, Provider, DDS Social History [...] on filedocumented in this encounter Care Teams Electrical Line Worker Relationship Specialty Start Date End Date Waleska Goldberg FNP [address] [place] [address] PCP - General Family Medicine 12/12/21 Abhishek Murdock, RN [address] [place] [address] Registered Nurse Family Medicine 12/20/24 01/07/25 Gloria Flores Tobacco SprayerFeed House Supervisor 03/13/23 documented as of this encounter
--- OUTSIDE RECORDS SUMMARY | 2025-03-06 13:58 | XMS_ITS | Encounter Summary ---
Author Organization [facility] Address [address] [place] [address] Care Team Providers Care Stereo Equipment Installer Name Role Phone Waleska Goldberg AMERICO Primary Care Provider [phone] Encounter Details Date Type Department Care Team ([facility] st Contact Info) Description 03/03/[address] [facility] MEDICINE [address], [place] [id number] Claudette Pederson LPN Social History Tobacco Use Types Packs/Day Years [...] encounter Miscellaneous Notes * Telephone Encounter - Claudette Pederson LPN - 03/03/2025 9:52 AM EST Return call to Angelo Arteaga, regarding out of date and missing information TJ. He reports that a new TJ was mailed to patient and will be faxed when completed but not before March documented in this encounter Plan of Treatment [...] Plan Patient has chronic kidney disease No Claudette Pederson LPN Help patients manage their type 2 diabetes Care Plan Help patients manage their type 2 diabetes No Claudette Pederson LPN Patient has diabetic neuropathy Care Plan Patient has diabetic neuropathy No Claudette Pederson LPN Weekly blood pressure task Care Plan Weekly blood pressure task No Claudette Pederson LPN Weekly blood pressure task Care Plan Weekly blood pressure task No Claudette Pederson LPN Patient has chronic kidney disease Care Plan Patient has chronic kidney disease No Claudette Pederson LPN Patient has chronic kidney disease Care Plan Patient has chronic kidney disease No Claudette Pederson LPN Patient has diabetic neuropathy Care Plan Patient has diabetic neuropathy No [place], Claudette, EMERGENCY PLANNING AND RESPONSE MANAGER Patient has diabetic neuropathy Care Plan Patient has diabetic neuropathy No [place], Claudette, EMERGENCY PLANNING AND RESPONSE MANAGER Weekly blood pressure task Care Plan Weekly [...] Weekly blood pressure task No [place], Claudette, EMERGENCY PLANNING AND RESPONSE MANAGER Weekly blood pressure task Care Plan Weekly blood pressure task No [place], Claudette, EMERGENCY PLANNING AND RESPONSE MANAGER Weekly blood pressure task Care Plan Weekly blood pressure task No [place], Claudette, EMERGENCY PLANNING AND RESPONSE MANAGER Patient has chronic kidney disease Care Plan Patient has chronic kidney disease No [place], Claudette, EMERGENCY PLANNING AND RESPONSE MANAGER Patient has chronic kidney disease Care Plan Patient has chronic kidney disease No [place], Claudette, EMERGENCY PLANNING AND RESPONSE MANAGER Patient has chronic kidney disease Care Plan Patient has chronic kidney disease No [place], Claudette, EMERGENCY PLANNING AND RESPONSE MANAGER Patient has diabetic neuropathy Care Plan Patient has diabetic neuropathy No [place], Claudette, EMERGENCY PLANNING AND RESPONSE MANAGER Patient has diabetic neuropathy Care Plan Patient has diabetic neuropathy No [place], Claudette, EMERGENCY PLANNING AND RESPONSE MANAGER Patient has diabetic neuropathy Care Plan Patient has diabetic neuropathy No [place], Claudette, EMERGENCY PLANNING AND RESPONSE MANAGER Weekly blood pressure task Care Plan Weekly blood pressure task No [place], Claudette, EMERGENCY PLANNING AND RESPONSE MANAGER Weekly blood pressure task Care Plan Weekly blood pressure task No [place], Claudette, EMERGENCY PLANNING AND RESPONSE MANAGER Weekly blood pressure task Care Plan Weekly blood pressure task No [place], Claudette, EMERGENCY PLANNING AND RESPONSE MANAGER Patient has chronic kidney disease Care Plan Patient has chronic kidney disease No [place], Claudette, EMERGENCY PLANNING AND RESPONSE MANAGER Patient has chronic kidney disease Care Plan Patient has chronic kidney disease No [place], Claudette, EMERGENCY PLANNING AND RESPONSE MANAGER Patient has chronic kidney disease Care Plan Patient has chronic kidney disease No [place], Claudette, EMERGENCY PLANNING AND RESPONSE MANAGER Patient has diabetic neuropathy Care Plan Patient has diabetic neuropathy No Claudette Pederson LPN Patient has diabetic neuropathy Care Plan Patient has diabetic neuropathy No Claudette Pederson LPN Patient has diabetic neuropathy Care Plan Patient has diabetic neuropathy No Claudette Pederson LPN documented as of this encounter Visit Diagnoses [...] neuropathy 03/03/2025 Patient has diabetic neuropathy 03/03/2025 Assessment Noted Time PHQ-9 Depression Total Score: 0 08/11/19 25 11:33 AM EDT documented as of this encounter Care Teams Stereo Equipment Installer Relationship Specialty Start Date End Date Waleska Goldberg FNP [address] [place] [address] PCP - General Family Medicine 12/12/21 Gloria Flores HydrogeologistHand Cigar Maker 03/13/23 documented as of this encounter
--- OUTSIDE RECORDS SUMMARY | 2025-03-06 13:59 | XMS_ITS | Clinical Summary ---
Author Organization [employer] Address [address] [place] [address] Care Team Providers Care Building Custodian Name Role Phone Waleska Goldberg STEEL ROLLER Primary Care Provider [phone] Allergies No known active allergies Medications fluticasone (Flonase) 50 MCG/ACT nasal sprayIndications:N bobby congestion USE 1-2 SPRAYS IN EACH NOSTRIL [...] by mouth daily Active Continuous Blood Gluc Data Consultant (FreeStyle Alfredo 2 [place]) deviceIndications: Type 2 diabetes mellitus without complication, with long-term current use of insulin (HCC) Use to check blood glucose levels throughout the day 1 each 06/17/19 23 Active Continuous Blood Gluc Sensor (FreeStyle Alfredo 2 Sensor) miscIndications:Ty pe 2 diabetes mellitus without complication, with long-term current use of insulin (HCC) Use to check blood sugar levels throughout the day 2 each 06/17/19 23 Active Blood Glucose Monitoring Suppl (FreeStyle Tanner Lite) w/Device kitIndications:Typ e 2 diabetes mellitus without complication, with long-term current use of insulin ([facility]) Use to test blood sugar 1-2 times daily 1 kit 07/30/19 24 Active baclofen (Lioresal) 10 MG tablet TAKE 1 TABLET BY MOUTH THREE TIMES DAILY IN THE MORNING, AT NOON, AND AT BEDTIME NEEDED FOR MUSCLE SPASMS 60 tablet 1 09/18/19 24 Active Diclofenac Sodium 1 % gelIndications:Art hralgia of hands, bilateral APPLY 2 GRAMS TOPICALLY TO HANDS 2-3 TIMES PER DAY NEEDED FOR PAIN 100 g 2 09/22/19 24 Active aspirin (Aspirin Low Dose) 81 MG chewable tabletIndications: Coronary arteriosclerosis,C hronic systolic heart failure (HCC) TAKE 1 TABLET BY MOUTH EVERY MORNING 90 tablet 3 12/24/19 24 Active isosorbide mononitrate ER (Imdur) 60 MG 24 hr tabletIndications: Coronary arteriosclerosis,C hronic systolic heart failure (HCC) TAKE 1 TABLET BY MOUTH EVERY MORNING 90 tablet 3 12/24/19 24 Active lisinopril 2.5 MG tabletIndications: Coronary arteriosclerosis,C hronic systolic heart failure (HCC) TAKE 1 TABLET BY MOUTH AT BEDTIME 90 tablet 3 12/24/19 24 Active insulin aspart (NovoLOG FLEXPEN) 100 UNIT/ML penIndications:Typ e 2 diabetes mellitus without complication, with long-term current use of insulin ([facility]) INJECT 6 UNITS SUBCUTANEOUSLY 3 TIMES DAILY WITH MEALS AND USE 8 UNITS IF BG>200. 30 mL 2 02/23/20 24 Active ezetimibe (Zetia) 10 MG tablet TAKE 1 TABLET BY MOUTH EVERY MORNING 90 tablet 3 03/17/20 24 Active Fiber-Lax 625 MG tablet Take 1 tablet by mouth every 6 (six) hours during the day. 01/22/20 24 Active ammonium lactate (Amlactin) 12 % creamIndications:X erosis of skin Apply topically if needed for dry skin. Apply to feet 1-2 times per day. 140 g 3 04/16/19 25 026 Active metFORMIN (Glucophage) 500 MG tabletIndications: Type 2 diabetes mellitus without complication, with long-term current use of insulin ([facility]) TAKE 1 TABLET BY MOUTH TWICE DAILY IN THE MORNING AND IN THE EVENING WITH MEALS 180 tablet 3 06/18/19 25 Active TRUEplus Lancets 33G miscIndications:Ty pe 2 diabetes mellitus without complication, with long-term current use of insulin ([facility]) USE TO TEST BLOOD SUGAR FOUR TIMES DAILY 100 each 11 06/18/19 25 Active carvedilol (Coreg) 3.125 MG tabletIndications: Essential hypertension TAKE 1 TABLET BY MOUTH TWICE DAILY IN THE MORNING AND IN THE EVENING WITH FOOD 180 tablet 3 06/18/19 25 Active atorvastatin (Lipitor) 80 MG tabletIndications: Other hyperlipidemia TAKE 1 TABLET BY MOUTH EVERY EVENING FOR CHOLESTEROL 90 tablet 3 06/18/19 25 Active glucose blood (FREESTYLE LITE) test stripIndications:T ype 2 diabetes mellitus without complication, with long-term current use of insulin ([facility]) TEST BLOOD SUGAR FOUR TIMES DAILY AND NEEDED FOR BLOOD SUGAR <70 MG/dL 100 strip 11 5 11:50 AM EST 06/18/19 25 Active finasteride (Proscar) 5 MG tablet Take 1 tablet by mouth Once per day. Do not crush, chew, or split. Active empagliflozin (Jardiance) 10 MGIndications:Type 2 diabetes mellitus without complication, with long-term current use of insulin ([facility]) Take 1 tablet (10 mg) by mouth Once per day. 90 tablet 1 5 11:50 AM EST 08/10/19 25 026 Active UltiGuard SafePack Pen Needle 32G X 4 MM miscIndications:Ty pe 2 diabetes mellitus without complication, with long-term current use of insulin ([facility]) USE DIRECTED 6 TIMES PER DAY 100 each 11 10/05/19 25 Active lidocaine-prilocai ne (Emla) 2.5-2.5 % cream Apply topically to right ankle as needed for pain up to 3 times per day 30 g 1 10/05/19 25 Active clopidogrel (Plavix) 75 MG tablet TAKE 1 TABLET BY MOUTH EVERY MORNING 90 tablet 1 10/14/19 25 Active Lantus SoloStar 100 UNIT/ML penIndications:Typ e 2 diabetes mellitus treated with insulin ([facility]) INJECT 30 UNITS SUBCUTANEOUSLY ONCE DAILY 15 mL 4 01/21/20 25 Active albuterol 108 (90 Base) MCG/ACT inhalerIndications :History of wheezing Inhale 2 puffs every 4 (four) hours if needed for wheezing or shortness of breath. 18 g 1 03/04/20 25 026 Active acetaminophen (Acetaminophen 8 Hour) 650 MG ER tabletIndications: Arthritis of both hips Take 1 tablet (650 mg) by mouth every 8 (eight) hours if needed (pain or fever). Do not crush, chew, or split. 90 tablet 2 03/04/20 25 026 Active Active Problems Patient Care Coordination No te Formatting of this note migh t be different from the original. C3/CM Yesenia Page RN Problem Noted Date Diagnosed Date Bladder outlet obstruction 03/04/2025 Calcium oxalate calculus 03/04/2025 Chronic constipation 03/04/2025 Overview (03/04/2025): Encourage fiber Hematoma 03/04/2025 Trigger finger of right thumb 03/04/2025 Assessment & Plan (03/04/2025 1:52 PM EST): - Followed by [facility] Ortho - evaluation September 2024 by MARYBEL Davis Rec at that time was to hold steroid injection d/t poorly controlled diabetes, although diabetes well controlled at this time. May consider f/up with Ortho if symptoms persist. Nephrolithiasis 03/04/2025 Assessment & Plan (03/04/2025 5:09 PM EST): - Feb 2025 ED visit: non-obstructing nephrolithiasis in the lower poles both kidneys w/o hydronephrosis. - Reviewed s/symptoms of nephrolithiasis and ED precautions - Reports that he is established with Urology and has upcoming renal US scheduled - Encouraged good hydration Fracture of left patella with routine healing Overview (05/23/2024): Following with [facility] Ortho - Dr. Monahan Assessment & Plan (08/17/2024 2:51 PM EDT): - Completed physical therapy - Referral to [facility] Ortho placed for further eval - Pain [...] first be evaluated in ED) Hyperlipidemia 04/08/2024 Overview (10/28/2024): Following with [facility] Cardiology Continue atorvastatin 80mg nightly Continue PCSK9 inhibitor (rx Cards) Assessment & Plan (10/28/2024 1:35 PM EDT): Lab Results Component Value Date CHOL 137 08/19/2024 TRIG 87 08/19/2024 HDL 34 (L) 08/19/2024 LDLCHOLCAL 86 08/19/2024 -continue lifestyle modification History of myocardial infarction 01/11/2024 Lumbar spondylosis [...] Previous trials: prednisone, avoid NSAIDs with hx UT, APAP not effective. - Plan: short course [...] knee 08/30/2023 Overview (04/16/2024): - Followed by [facility] Ortho - Plan for trial knee sleeve and activity modification. If no improvement with conservative measures, may consider injections - Consult Jan 2024: received steroid injection. Not good surgical candidate. Assessment & Plan (01/11/2024 5:18 PM EDT): Currently described as one of most painful sites of LLE. No red flag symptoms on exam today. Called and scheduled for appt with [facility] Ortho in 2 weeks. ED precautions sooner PRN. Cervical spondylosis 07/31/2023 Overview (10/28/2024): CT July 2023 demonstrated severe spondylosis at [...] indicated. - Referred to Neurosurgery on 08/12/23 - Referral to [facility] Pain Management sent 08/17/24 Assessment & Plan (10/28/2024 2:09 PM EDT): - Short course of Percocet to be used sparingly for severe pain. Reviewed med safety and SE. Assessment & Plan (08/17/2024 2:54 PM EDT): -Referral to [facility] Pain Management sent 08/17/24 Assessment & Plan (08/30/2023 10:38 AM EDT): -Message sent to referrals team 08/30/23 to follow up on pending referral Assessment & Plan (07/31/2023 8:47 PM EDT): Cont symptomatic management Reviewed ED/urgent care precautions Healthcare maintenance 05/26/2023 Overview (04/16/2024): Dental: [facility] Dental Optometry: 10/07/22: SHELBY w/o diabetic retinopathy or diabetic macular edema. Colonoscopy: 05/30/22 at [facility] GI - Dr. Harrison. Plan to repeat in 1-2 years d/t poor prep. Referral to re-establish with GI sent 04/16/24. Assessment & Plan (08/30/2023 10:39 AM EDT): Declines COVID & PCV20 vaccines 08/29/23 Benign prostatic hyperplasia with urinary freque ncy 05/13/2022 Assessment & Plan (07/31/2023 7:22 PM EDT): Following with [facility] Urology - Dr. Arboleda Continues with tamsulosin 0.4mg nightly Chronic pelvic pain in male 05/13/2022 Overview (08/17/2024): -Following with [facility] Urology -Previous recommendation for pelvic floor physical therapy (pt not interested) -Continues with intermittent, chronic pelvic pain. Currently asymptomatic -02/14/23: US retroperitoneal ordered by AMERICO Lares. 1. Nephrocalcinosis. No hydronephrosis. 2. Enlarged prostate. Mild diffuse thickening and mucosal irregularity of the bladder wall. 07/13/2024: [facility] urology. Cystoscopy 06/07 open bladder neck. History of incomplete bladder emptying with weakness of stream. Managed with doxazosin 4 mg daily, finasteride initiated at time of retention. Cystoscopy completed on 07/13/2024. 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 - Check XR right hip and low back - Symptomatic management with APAP PRN Cyst of epididymis 09/23/2018 Depressive disorder 04/27/2018 Insomnia 04/27/2018 Assessment & Plan (08/30/2023 10:36 AM EDT): - Chronic, discussed sleep hygiene and pharmacotherapy options. - Cont trazodone PRN Assessment & Plan (07/31/2023 8:44 PM EDT): Chronic, discussed sleep hygiene and pharmacotherapy options. Shared decision making to trial trazodone PRN. Reviewed med safety and SE Chronic systolic heart failure 04/17/2018 Overview (10/28/2024): -Followed by [facility] cardiology. Dr. 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 -Pt to continue anticoagulation and nitroglycerin as needed through Cards Assessment & Plan (07/19/2024 4:43 PM EDT): - Given extensive cardiac history, transferred urgently to [facility] ED for further eval Coronary arteriosclerosis 04/17/2018 Diabetic neuropathy 04/17/2018 Essential hypertension 04/17/2018 Generalized ischemic myocardial dysfunction 07/2018 S/P CABG x 5 04/17/2018 Type 2 diabetes mellitus 04/17/2018 Overview (03/04/2025): -Previously followed by [facility] Endo for management, although provider left and have not yet established with new provider -Reports BG readings usually ~120 fasting, and then around 100-200 throughout the day -Current regimen includes: -30 units nightly lantus -Novolog 6 units before meals -metformin 500mg BID -Jardiance 10mg daily -CGM approved, plan for initial teaching and device application 08/14/22 at [facility] Pharmacy -Podiatry: referral placed 06/05/22 -Optometry: last CEE September 2022 ([facility]) Lab Results Component Value Date HGBA1C 6.6 (A) 03/04/2025 Assessment & Plan (03/04/2025 2:00 PM EST): Well controlled, cont with current regimen Assessment & Plan (10/28/2024 1:36 PM EDT): Discussed med management including increase dosing of Jardiance and metformin. Pt will consider and we can further discuss next appt. Assessment & Plan (08/17/2024 3:01 PM EDT): [...] Problem Noted Date Diagnosed Date Resolved Date Abrasion, corneal 03/04/2025 03/04/2025 Acute prostatitis 03/04/2025 03/04/2025 Antiplatelet or antithrombotic long-term use 03/04/2025 Overview (03/04/2025): 56-year-old male multiple comorbid illness referred for index screening colonoscopy Will request cardiac clearance-before we proceed Bronchitis 03/04/2025 03/04/2025 Cellulitis 03/04/2025 03/04/2025 Cervical radiculopathy 03/04/202503/04 Constipation 03/04/2025 03/04/2025 Concussion 03/04/2025 03/04/2025 Contusion of knee 03/04/2025 03/04/2025 Contusion of left shoulder 03/04/2025 1 05/04/2024 Closed fracture of tooth 03/02/2024 Rheumatoid arthritis involvi ng multiple sites ([facility]) 08/17/2022 08/17/2022 Overview (08/17/2022): Followed by [facility] Pain Management Abdominal pain of unknown cause 05/13/2022 08/30/2023 UTI symptoms 05/13/2022 06/16/2022 Pain in joint of left shoulder 11/19/2018 06/16/2022 Inguinal lymphadenopathy 08/27/201808/2022 Trigger ring finger of right hand 06/08/2018 06/16/2022 Encounters Date Type Department Care Team Description 03/04/2025 10:00 AM EST Office Visit [facility] PEDS [address] [place] [address] Waleska Goldberg, AMERICO Arthritis of both hips (Primary Dx); Type 2 diabetes mellitus without complication, with long-term current use of insulin ([facility]); Encounter for immunization; Pain of right hip; Colon cancer screening; Trigger finger of right thumb; History of wheezing; Nephrolithiasis; Abdominal pain, unspecified abdominal location 03/04/2025 8:45 AM EST Office Visit [facility] ADULT DENTAL [address] [place] [address] Omaira Means Encounter for dental examination (Primary Dx); Tooth missing; Dental caries; Bruxism; Dental plaque; Dental calculus 03/04/2025 Travel 03/03/[address] [address] Claudette Pederson LPN 03/02/[address] [address] Waleska Goldberg FNP 02/26/2025 Orders Only GENERIC EXTERNAL DATA DEPARTMENT Provider, Generic External Data 02/25/2025 Patient Outreach [address] [address] Waleska Goldberg FNP Pre-visit Planning (Pre visit planning unable to LVM ) 02/25/[address] [address] Waleska Goldberg FNP 02/07/2025 Patient Outreach [address] [address] Waleska Goldberg FNP Pre-visit Planning (SDOH screening completed on 08/09) 01/19/[address] [address] Waleska Goldberg FNP Type 2 diabetes mellitus treated with insulin (HCC) 01/07/2025 Patient Outreach [facility] [address] [place], [place] [id number] Waleska Goldberg FNP Care Management ([facility]- F/U call) 12/22/2024 Patient Outreach [address] [address] Waleska Goldberg FNP Care Coordination ([facility]/MARBELLA Wilkinson [facility] f/u, program graduation ) 12/06/2024 Patient Outreach [address] [address] Waleska Goldberg FNP Care Coordination ([facility]/Bob Nurms f/u call ) from Last 3 Months Immunizations Immunization Administration Dates Next Due Influenza injectable quadrivalent preservative f ree 01/04/2019,04/17/2018 Influenza, IIV3, injectable 01/04/2019 Pneumococcal Conjugate PCV 20 03/04/2025 Pneumococcal Polysaccharide PPSV23 06/12/2018, TD (adult), 2 [...] Mass Index 25.09 03/04/2025 10:24 AM EST Plan of Treatment Health Maintenance Due Date Last Done Comments CT Colonography 1965 FIT DNA/Cologuard 1965 FIT 1965 FOBT 1965 HIV Screening 1965 Sigmoidoscopy 1965 Diabetes: Foot Exam 1975 Hepatitis A Vaccines (1 of 2 - Risk 2-dose series) 1984 Hepatitis B Vaccines (1 of 3 - 19+ 3-dose series) 1984 RSV Patients and Patients Aged 60 years or older (1 - Risk 50-74 years 1-dose series) 2015 Zoster Vaccines (1 of 2) 2015 Colonoscopy 05/30/2024 05/30/2022 Colorectal Cancer Screening 05/30/2024 Alcohol/Substance Use Screening 04/16/2025 04/16/2024 SDOH Screening 08/09/2025 08/09/2024 Depression Screening 08/10/2025 08/10/2024, 08/11/19 25 Diabetes: Urine Protein Screening 08/19/2025 08/19/2024, 08/19/2024, 08/06/2021, Additional history exists Lipid Panel 08/19/2025 08/19/2024, 05/07/2021 Diabetes: Hemoglobin A1C 09/01/2025 025, 10/04/2024, 08/19/2024, Additional history exists Dental Oral Exam 09/02/2025 03/04/2025, 09/05/2022 Dental Prophylaxis 09/02/2025 03/04/2025, 06/26/2023 Disability Screening 10/04/2025 10/04/2024 Influenza Vaccine (#1) 2025 9, 01/04/2019, 04/17/2018 Postponed from 12/13/2024 (Patient Refused) COVID-19 Vaccine ( season) 2026 07/21/2020, 06/23/2020 Postponed from 12/13/2024 (Patient Refused) Tobacco Screening 03/04/2026 03/04/2025 Dental X-Ray: Bitewings 03/05/2026 03/04/20 25, 06/26/2023, 08/15/2022 Dental X-Ray: Full Mouth 06/26/2026 06/26/2023 Eye Exam 09/09/2026 09/09/2024, 08/13, 09/09/2024, Additional history exists DTaP/Tdap/Td Vaccines (2 - Td or Tdap) 07/13/2033 07/14/2023, 12/28/2018, 12/28/2018 Pneumococcal Vaccine: 50+ Years Completed 03/04/2025, 06/12/2018, 04/17/2018 HIB Vaccines Aged Out No longer eligi [...] on patient's age to complete this topic Goals Goal Patient Goal Type Associated Problems [...] patients manage their type 2 diabetes No [place], Claudette, BUSINESS SUPPORT COORDINATOR Patient has diabetic neuropathy Care Plan Patient has diabetic neuropathy No [place], Claudette, BUSINESS SUPPORT COORDINATOR Weekly blood pressure task Care Plan Weekly blood pressure task No [place] Claudette, BUSINESS SUPPORT COORDINATOR Weekly blood pressure task Care Plan Weekly blood pressure task No [place] Claudette, BUSINESS SUPPORT COORDINATOR Patient has chronic kidney disease Care Plan Patient has chronic kidney disease No Dacai, Claudette, BUSINESS SUPPORT COORDINATOR Patient has chronic kidney disease Care Plan Patient has chronic kidney disease No [place] Claudette, BUSINESS SUPPORT COORDINATOR Patient has diabetic neuropathy Care Plan Patient has diabetic neuropathy No [place], Claudette, BUSINESS SUPPORT COORDINATOR Patient has diabetic neuropathy Care Plan Patient has diabetic neuropathy No [place], Claudette, BUSINESS SUPPORT COORDINATOR Weekly blood pressure task Care Plan Weekly [...] Plan Weekly blood pressure task No DaciaRadhaClaudette, BUSINESS SUPPORT COORDINATOR Weekly blood pressure task Care Plan Weekly blood pressure task No DaciaRadhaClaudette, BUSINESS SUPPORT COORDINATOR Weekly blood pressure task Care Plan Weekly blood pressure task No [place], Claudette, BUSINESS SUPPORT COORDINATOR Patient has chronic kidney disease Care Plan Patient has chronic kidney disease No [place], Claudette, BUSINESS SUPPORT COORDINATOR Patient has chronic kidney disease Care Plan Patient has chronic kidney disease No [place] Claudette, BUSINESS SUPPORT COORDINATOR Patient has chronic kidney disease Care Plan Patient has chronic kidney disease No [place], Claudette, BUSINESS SUPPORT COORDINATOR Patient has diabetic neuropathy Care Plan Patient has diabetic neuropathy No [place], Claudette, BUSINESS SUPPORT COORDINATOR Patient has diabetic neuropathy Care Plan Patient has diabetic neuropathy No DaciaRadhaClaudette, BUSINESS SUPPORT COORDINATOR Patient has diabetic neuropathy Care Plan Patient has diabetic neuropathy No [place], Claudette, BUSINESS SUPPORT COORDINATOR Weekly blood pressure task Care Plan Weekly blood pressure task No [place], Claudette, BUSINESS SUPPORT COORDINATOR Weekly blood pressure task Care Plan Weekly blood pressure task No Dacia Claudette, BUSINESS SUPPORT COORDINATOR Weekly blood pressure task Care Plan Weekly blood pressure task No [place], Claudette, BUSINESS SUPPORT COORDINATOR Patient has chronic kidney disease Care Plan Patient has chronic kidney disease No [place], Claudette, BUSINESS SUPPORT COORDINATOR Patient has chronic kidney disease Care Plan Patient has chronic kidney disease No [place] Claudette, BUSINESS SUPPORT COORDINATOR Patient has chronic kidney disease Care Plan Patient has chronic kidney disease No [place], Claudette, BUSINESS SUPPORT COORDINATOR Patient has diabetic neuropathy Care Plan Patient has diabetic neuropathy No [place], Claudette, BUSINESS SUPPORT COORDINATOR Patient has diabetic neuropathy Care Plan Patient has diabetic neuropathy No [place], Claudette, BUSINESS SUPPORT COORDINATOR Patient has diabetic neuropathy Care Plan Patient has diabetic neuropathy No [place], Claudette, BUSINESS SUPPORT COORDINATOR Weekly blood pressure task Care Plan Weekly blood pressure task No [place], Waleska, STEEL ROLLER Weekly blood pressure task Care Plan Weekly blood pressure task No [place], Waleska, STEEL ROLLER Weekly blood pressure task Care Plan Weekly blood pressure task No [place], Waleska, STEEL ROLLER Patient has chronic kidney disease Care Plan Patient has chronic kidney disease No [place], Waleska, STEEL ROLLER Patient has chronic kidney disease Care Plan Patient has chronic kidney disease No [place], Waleska, STEEL ROLLER Patient has chronic kidney disease Care Plan Patient has chronic kidney disease No [place], Waleska, STEEL ROLLER Patient has diabetic neuropathy Care Plan Patient has diabetic neuropathy No [place]alen, Waleska, STEEL ROLLER Patient has diabetic neuropathy Care Plan Patient has diabetic neuropathy No [place]alen, Waleska, STEEL ROLLER Patient has diabetic neuropathy Care Plan Patient has diabetic neuropathy No [place]alen, Waleska, STEEL ROLLER Weekly blood pressure task Care Plan Weekly blood pressure task No Means, Omaira Weekly blood pressure task Care Plan Weekly blood pressure task No Means, Omaira Weekly blood pressure task Care Plan Weekly blood pressure task No Means, Omaira Patient has chronic kidney disease Care Plan Patient has chronic kidney disease No Clary, Omaira Patient has chronic kidney disease Care Plan Patient has chronic kidney disease No Clary, Omaira Patient has chronic kidney disease Care Plan Patient has chronic kidney disease No Clary, Omaira Patient has diabetic neuropathy Care Plan Patient has diabetic neuropathy No Clary Omaira Patient has diabetic neuropathy Care Plan Patient has diabetic neuropathy No MeansOmaira Patient has diabetic neuropathy Care Plan Patient has diabetic neuropathy Omaira Marie Procedures Procedure Name Priority Date/Time Associated Diagnosis Comments POCT GLYCATED HEMOGLOBIN, TOTAL Routine 03/04/2025 10:28 AM EST Type 2 diabetes mellitus without complication, with long-term current use of insulin (HCC) POCT GLUCOSE Routine 03/04/2025 10:27 AM EST Type 2 diabetes mellitus without complication, with long-term current use of insulin (HCC) INTRAORAL - PERIAPICAL EACH ADDITIONAL RADIOGRAPHIC IMAGE Routine 03/04/2025 8:45 AM EST BITEWINGS - 3 RADIOGRAPHIC IMAGES Routine 03/04/2025 8:45 AM EST ORAL HYGIENE INSTRUCTIONS Routine 03/04/2025 8:45 AM EST Dental plaque Dental calculus Full PROPHYLAXIS - ADULT Routine 03/04/2025 8:45 AM EST Dental plaque Dental calculus CASE PRESENTATION, DETAILED AND EXTENSIVE TREATMENT PLANNING Routine 03/04/2025 8:45 AM EST INTRAORAL - PERIAPICAL FIRST RADIOGRAPHIC IMAGE Routine 03/04/2025 8:45 AM EST PERIODIC ORAL EVALUATION - ESTABLISHED PATIENT Routine 03/04/2025 8:45 AM EST Encounter for dental examination Tooth missing Dental caries Bruxism XR CHEST 2 VIEWS Routine 02/26/2025 3:[address] ABDOMEN PELVIS W CONTRAST Routine 02/26/2025 12:02 PM EST INFLUENZA A B2 ID NOW (VU) Routine 02/26/2025 8:09 AM EST STREP A NUCLEIC ACID Routine 02/26/2025 8:09 AM EST CBC WITH AUTO DIFFERENTIAL Routine 02/26/2025 7:53 AM EST URINALYSIS, COMPLETE, WITH REFLEX TO CULTURE Routine 02/26/2025 7:52 AM EST LIPID PANEL, STANDARD Routine 08/19/2024 8:35 AM EDT ALBUMIN, RANDOM URINE W/CREATININE Routine 08/19/2024 8:29 AM EDT Type 2 diabetes mellitus without complication, with long-term current use of insulin ([facility]) INTRAORAL - COMPLETE SERIES OF RADIOGRAPHIC IMAGES Routine 06/26/2023 8:00 AM EDT HM COLONOSCOPY Routine 05/30/2022 9:04 PM EST from Last 3 Months or Most Recently Relevant to Health Maintenance Results * (ABNORMAL) POCT Hgb A1c (03/04/2025 10:28 AM EST) Hemoglobin A1C 6.6(A) 4.0 - 5.7 % QC Media Lot # [id number] Lot# Expiration Date 5,027 Blood 03/04/2025 10:2 8 AM EST us Waleska Goldberg STEEL ROLLER POINT OF CARE TEST ENTER/EDIT ORDERABLES Final Result * POCT Glucose (03/04/2025 10:27 AM EST) Glucose Blood, POC 121 60 - 200 mg/dL QC Media Lot # [id number] Lot# Expiration Date 2,[id number] Blood Capillary blood specimen / Unknown 03/04/2025 10:27 AM EST us Waleska Goldberg STEEL ROLLER POINT OF CARE TEST ENTER/EDIT ORDERABLES Final Result * XR Chest 2 Views (02/26/2025 3:02 PM EST) Anatomical Region Laterality Modality Chest Radiographic Delores ging 02/26/2025 3:02 PM EST Narrative 02/26/2025 3:03 PM EST [address] [address] XRay Report Signed Patient: Barrett Goldman MR#: [id number] : 1965 Acct:[id number] Age/Sex: 59 / M ADM Date: 02/26/25 Loc: HO.ED Attending Dr: Ordering Physician: Narinder Elliott MD Date of Service: 02/26/25 Procedure(s): XR chest 2V Accession Number(s): [id number] cc: Narinder Elliott MD; Waleska Goldberg Reason for Exam: cough CLINICAL HISTORY: cough 2 view chest x-ray. Comparison: 02/12/2024 Findings: No consolidation or effusion. Cardiac and mediastinal contours are stable. Bones unremarkable. Impression: 1. No acute pulmonary disease. This document has been electronically signed by: Roscoe Guadarrama MD on 02/26/2025 15:02:14 Dictated By: Roscoe Guadarrama MD Signed By: <Electronically signed by Roscoe Guadarrama MD in OV> 02/26/25 1503 DD/ 1502 TD/TT: 02/26/25 150 Mold Carrier: Procedure Note Donotuseinterpreter, Image - 02/26/2025 [place] [address] XRay Report Signed Patient: Barrett Goldman AMR#: [id number] : 1965Acct:[id number] Age/Sex: 59 / MADM Date: 02/26/25 Loc: .ED Attending Dr: Ordering Physician: Narinder Elliott MD Date of Service: 02/26/25 Procedure(s): XR chest 2V Accession Number(s): [id number] cc: Narinder Elliott MD; Waleska Goldberg Reason for Exam: cough CLINICAL HISTORY: cough 2 view chest x-ray. Comparison: 02/12/2024 Findings: No consolidation or effusion. Cardiac and mediastinal contours are stable. Bones unremarkable. Impression: 1. No acute pulmonary disease. This document has been electronically signed by: Roscoe Guadarrama MD on 02/26/2025 15:02:14 Dictated By: Roscoe Guadarrama MD Signed By: <Electronically signed by Roscoe Guadarrama MD in OV> 02/26/25 1503 DD/ 1502 TD/TT: 02/26/251501 Mold Carrier: [facility] External Provider IMG XR PROCEDURES Edited Result - Final * CT Abdomen Pelvis w/ Contrast (02/26/2025 12:02 PM EST) Anatomical Region Laterality Modality Body, Pelvis, Abdomen Computed T omography 02/26/2025 12:0 2 PM EST Narrative 02/26/2025 12:04 PM EST [address] [address] [address] Scan Report Signed Patient: Barrett Goldman MR#: [id number] : 1965 Acct:[id number] Age/Sex: 59 / M ADM Date: 02/26/25 Loc: HO.ED Attending Dr: Ordering Physician: Narinder Elliott MD Date of Service: 02/26/25 Procedure(s): CT abdomen pelvis w IV con Accession Number(s): [id number] cc: Narinder Elliott MD; Waleska Goldberg [facility] Report Number: [id number]: Total DLP = 476.00 mGy-cm Reason for Exam: left flank pain CLINICAL HISTORY: left flank pain CT abdomen and pelvis with contrast Comparison: CT of the abdomen and pelvis from 07/14/2023 Findings: Bibasilar atelectasis/consolidation concerning for pneumonitis and pneumonia. Mild fat deposition of the liver. Question punctate cholelithiasis by CT (288 of series 2). The adrenal glands are normal. Mild volume loss of the pancreas is noted. Spleen approaches the upper limits of normal. No hydronephrosis. Nonobstructing nephrolithiasis including lower poles of the both kidneys measuring up to 6 mm; increased from comparison. Small retroperitoneal and mesenteric lymph nodes are likely reactive. No small bowel obstruction. Severe stool burden present, including the cecum. Mild wall thickening of the large intestine is nonspecific and may reflect mild colitis, including cecum. The appendix is not definitively seen. The prostate gland measures 4.8 cm transverse. Mild wall thickening of the urinary bladder is nonspecific. Mild wall thickening of the rectum is nonspecific. Mild vertebral height losses appear old/chronic and accentuated by Schmorl's nodes including lower endplate of the T11. Previous sternotomy changes of the partially imaged. IMPRESSION: 1. Nonobstructing nephrolithiasis in the lower poles of the both kidneys. No hydronephrosis at this time. 2. Severe stool burden. No small bowel obstruction. 3. Bibasilar pulmonary opacities concerning for pneumonitis/pneumonia. Recommend attention on follow-up to ensure resolution. 4. Nonspecific wall thickening of the urinary bladder. This document has been electronically signed by: Uri Kendall MD on 02/26/2025 12:02:25 Dictated By: Uri Kendall MD Signed By: <Electronically signed by Uri Kendall MD in OV> 02/26/25 1203 DD/ 1202 TD/TT: 02/26/25 1202 Mold Carrier: Procedure Note Donotuseinterpreter, Image - 02/26/[address] [address] [address] Scan Report Signed Patient: Barrett Goldman AMR#: [id number] : 1965Acct:[id number] Age/Sex: 59 / MADM Date: 02/26/25 Loc: HO.ED Attending Dr: Ordering Physician: Narinder Elliott MD Date of Service: 02/26/25 Procedure(s): CT abdomen pelvis w IV con Accession Number(s): [id number] cc: Narinder Elliott MD; Waleska Goldberg STEEL ROLLER Report Number: [id number]: Total DLP = 476.00 mGy-cm Reason for Exam: left flank pain CLINICAL HISTORY: left flank pain CT abdomen and pelvis with contrast Comparison: CT of the abdomen and pelvis from 07/14/2023 Findings: Bibasilar atelectasis/consolidation concerning for pneumonitis and pneumonia. Mild fat deposition of the liver. Question punctate cholelithiasis by CT (288 of series 2). The adrenal glands are normal. Mild volume loss of the pancreas is noted. Spleen approaches the upper limits of normal. No hydronephrosis. Nonobstructing nephrolithiasis including lower poles of the both kidneys measuring up to 6 mm; increased from comparison. Small retroperitoneal and mesenteric lymph nodes are likely reactive. No small bowel obstruction. Severe stool burden present, including the cecum. Mild wall thickening of the large intestine is nonspecific and may reflect mild colitis, including cecum. The appendix is not definitively seen. The prostate gland measures 4.8 cm transverse. Mild wall thickening of the urinary bladder is nonspecific. Mild wall thickening of the rectum is nonspecific. Mild vertebral height losses appear old/chronic and accentuated by Schmorl's nodes including lower endplate of the T11. Previous sternotomy changes of the partially imaged. IMPRESSION: 1. Nonobstructing nephrolithiasis in the lower poles of the both kidneys. No hydronephrosis at this time. 2. Severe stool burden. No small bowel obstruction. 3. Bibasilar pulmonary opacities concerning for pneumonitis/pneumonia. Recommend attention on follow-up to ensure resolution. 4. Nonspecific wall thickening of the urinary bladder. This document has been electronically signed by: Uri Kendall MD on 02/26/2025 12:02:25 Dictated By: Uri Kendall MD Signed By: <Electronically signed by Uri Kendall MD in OV> 02/26/25 1203 DD/ 1202 TD/TT: 02/26/25 1202 Mold Carrier: [facility] External Provider IMG CT PROCEDURES Edited Result - Final * Influenza A B2 ID NOW (Cartesian) (02/26/2025 8:09 AM EST) IDNOW SERIAL# [id number] [facility] Influenza A Negative Negative [facility] Influenza B2 Negative Negative [facility] Influenza A B2 Note See Note [facility] Comment:The Vu ID NOW In fluenza [...] specimen and co- infection withRespiratory Syncytial Virus. 02/26/2025 8:09 AM EST 02/26/2025 8:19 AM EST Generic External Data Provider LAB MICROBIOLOGY - GENERAL ORDERABLES Final Result [facility] [address] [place] [phone] * Strep A Nucleic Acid (02/26/2025 8:09 AM EST) EMIR SERIAL# [id number] [facility] Strep A Nucleic Acid Negative Negative [facility] Comment:All test results mus t be correlated with clinical findings.This test has not been evaluated for monitoring treatment ofinfection.Additional follow-up testing using the culture method isrequired if the result is negative and clinical symptomspersist, or in the event of an acute rheumatic feveroutbreak. 02/26/2025 8:09 AM EST 02/26/2025 8:19 AM EST us Generic External Data Provider LAB MICROBIOLOGY - GENERAL ORDERABLES Final Result [facility] [address] [place] [phone] * (ABNORMAL) CBC auto differential (02/26/2025 7:53 AM EST) White Blood Count 4.4(L) 4.8 - 10.8 X10*3/uL [facility] Red Blood Count 4.83 4.60 - 5.80 X10*6/uL [facility] Hemoglobin 15.3 14.0 - 18.0 g/dl [facility] Hematocrit 44.5 42.0 - 52.0 % [facility] Mean Corpuscular Volume 92.1 80.0 - 98.0 fL [facility] Mean Corpuscular Hemoglobin 31.7 27.0 - 33.0 pg [facility] Mean Corpuscular HGB Conc 34.4 31.0 - 36.0 g/dl [facility] Red Cell Distribution Width 12.8 11.0 - 16.0 % [facility] Platelet Count 171 160 - 400 X10*3/uL [facility] Mean Platelet Volume 10.2 9.4 - 12.4 fL [facility] Neutrophils Percent Auto 57.4 45 - 73 % [facility] Imm Gran Pct Auto 0.2 0.0 - 0.4 % [facility] Lymphocytes Percent Auto 29.3 20 - 40 % [facility] Monocytes Percent Auto 8.9 2 - 11 % [facility] Eosinophils Percent Auto 3.7 0 - 4 % [facility] Basophils Percent Auto 0.5 0 - 2 % [facility] NRBC Pct Auto 0.0 0.0 - 0.2 /100WBC [facility] Neutrophils Absolute Auto 2.5 2.0 - 8.3 x10*3/uL [facility] Imm Gran Abs Auto 0.01 0.00 - 0.03 X10*3/uL [facility] Lymphocytes Absolute Auto 1.3 1.2 - 4.9 X10*3/uL [facility] Monocytes Absolute Auto 0.4 0.1 - 1.2 X10*3/uL [facility] Eosinophils Absolute Auto 0.2 0.0 - 0.4 X10*3/uL [facility] Basophils Absolute Auto 0.0 0.0 - 0.2 X10*3/uL [facility] NRBC Abs Auto 0.000 0.0 - 0.012 X10*3/uL [facility] 02/26/2025 7:53 AM EST 02/26/2025 8:02 AM EST us Generic External Data Provider LAB BLOOD ORDERAB LES Final Result Performing Organization Address City/State/[facility] Co de Phone Number [facility] [address] [place] [phone] * (ABNORMAL) Urinalysis, Complete, with Reflex to Culture (02/26/2025 7:52 AM EST) Color Urine Yellow [facility] Appearance Urine Clear [facility] PH 5.5 5.0 - 9.0 [facility] Glucose Urine UA >=1000(A) Negative mg/dL [facility] Urine Blood Negative Negative [facility] Specific [place] - Urine >=1.030(H) 1.005 - 1.025 [facility] Urine Protein Trace Neg-Trace mg/dL [facility] Urine Ketones Trace Negative mg/dL [facility] Nitrite Urine Negative Negative [facility] Leukocyte Esterase Urine Negative Negative [facility] RBC Urine 0-2 0 - 2 /HPF [facility] Urine WBC 0-5 0 - 5 /HPF [facility] Urine Squamous Epithelial Cell 0-2 0 - 2 /HPF [facility] Urine Bacteria None Seen None Seen [facility] Hyaline Casts, Urine 0-2 0 - 2 /LPF [facility] 02/26/2025 7:52 AM EST 02/26/2025 8:02 AM EST Narrative [facility] - 02/26/2025 8:18 AM EST Urine, Clean Catch us Generic External Data Provider LAB URINE ORDERAB LES Final Result Performing Organization Address City/State/[facility] Co de Phone Number [facility] [address] [place] [phone] * (ABNORMAL) Lipid Panel, Standard (08/19/2024 8:35 AM EDT) Triglycerides 87 <150 mg/dL [facility] Comment:Desirable Triglyceri de: less than 150 mg/dLBorderline High Triglyceride 150-199 mg/dLHigh Triglyceride: 200-499 mg/dLVery High Triglyceride: greater than or equal to 5OO mg/dL Cholesterol 137 <200 mg/dL [facility] Comment:Desirable Cholestero l: less than 200 mg/dLBorderline High Cholesterol: 200-239 mg/dLHigh Cholesterol: greater than 239 mg/dL LDL Cholesterol Calculated 86 <100 mg/dL [facility] Comment:Desirable LDL: less than 100 mg/dLNear Optimal/Above Optimal LDL: 110- 129 mg/dLBorderline High LDL: 130-159 mg/dLHigh LDL: 160-189 mg/dLVery High LDL: greater than or equal to 190 mg/dL HDL Cholesterol 34(L) >40 mg/dL [facility] Comment:Desirable HDL: great er than 40 mg/dL Note: This HDL assay may give artificially low results in patients with liver disease. 08/19/2024 8:35 AM EDT 08/19/2024 8:35 AM EDT us Generic External Data Provider LAB BLOOD ORDERAB LES Final Result Performing Organization Address [facility] de Phone Number [facility] [address] [place] [phone] * Albumin, Random Urine W/Creatinine (08/19/2024 8:29 AM EDT) Creatinine, Urine 218.70 mg/dL [facility] Microalbumin Urine 12.0 mg/L [facility] Microalbum Creatinine Ratio Ur 5.4 <30 ug/mg cr [facility] Comment:Albumin/Creatinine R atio Reference Ranges: Normal: < 30 ug/mg creatinine Microalbuminuria: 30 - 300 ug/mg creatinineClinical Albuminuria: > 300 ug/mg creatinine Urine 08/19/2024 8:29 AM EDT 08/19/2024 8:50 AM EDT Waleska Goldberg [employer] LAB URINE ORDERABLES Final Res ult Performing Organization Address [facility] Co de Phone Number [facility] [address] [place] [phone] * Hm Colonoscopy (05/30/2022 9:04 PM EST) us Historical Provider HEALTH MAINTENANCE Final Result from Last 3 Months or Most Recently Relevant to Health Maintenance Additional Health Concerns Active Problems Noted Date [...] neuropathy 03/04/2025 Patient has diabetic neuropathy 03/04/2025 Insurance [facility] C3 DENTAL-[facility] MEDICAID STAND ADULT Care Teams Building Custodian Relationship Specialty Start Date End Date Waleska Goldberg FNP [address] [place] [address] PCP - General Family Medicine 12/12/21 Gloria Flores Staffing Account ManagerTalent Solutions Manager 03/13/23
--- OUTSIDE RECORDS SUMMARY | 2025-03-06 13:59 | XMS_ITS | Encounter Summary ---
Author Organization [employer] Address [address] [facility] 7t [place] [address] Care Team Providers Care Visor Installer Name Role Phone Waleska Goldberg Primary Care Provider [phone] Abhishek Murdock RN Unavailable Reason for Referral * Consultation (Routine) - Closed Specialty Diagnoses / Procedures Referred By Shayne rodriguez Referred To Contact Physical Therapy Diagnoses Fracture of left patella with routine healing Waleska Goldberg FNP [address] [place] [address] Phone: tel: fax: [facility] [address] [place] [address] Phone: tel: fax: Referral ID Status Reason Start Date Expiration Date V isits Requested Visits Authorized [id number] Closed Specialty Services Required 08/27/2024 08/27/2025 1 1 Encounter Details Date Type Department Care Team ([facility] Contact Info) Description 08/25/2024 Telephone [facility]INE [address] [place] [address] Waleska Goldberg FNP [address] [place], [place] [phone] Social History Tobacco Use Types Packs/Day Years [...] * Telephone Encounter - AMERICO Lebron - 08/27/2024 4:42 PM EDT Updated referral placed, thanks! * Telephone Encounter - Jerman Mullins - 08/25/2024 11:45 AM EDT Tc from [facility] with [facility] requesting existing referral to be sent with updated date information for Physical Therapy - Diagnosis: Fracture of left patella with routine healing (S82.002D) [facility] [address] [place] [address] documented in this encounter Plan of Treatment Scheduled Referrals Name Type Priority Associated Diagnoses Orde r Schedule Referral to Physical Therapy Outpatient Referral Routine Fracture of left patella with routine healing Expected: 08/27/2024 (Approximate), Expires: 08/27/2025 documented as of this encounter Visit Diagnoses Diagnosis Fracture of left patella with routine healing- Primary documented in this encounter Additional Health Concerns Assessment Noted Time PHQ-9 Depression Total Score: 0 08/11/19 11:33 AM EDT documented as of this encounter Care Teams Visor Installer Relationship Specialty Start Date End Date Waleska Goldberg FNP [address] [place] [address] PCP - General Family Medicine 12/12/21 Abhishek Murdock, FARSHAD [address] [place] [phone] Registered Nurse Family Medicine 12/20/24 01/07/25 Gloria Flores Wastewater SupervisorPrincipal Web Developer 03/13/23 documented as of this encounter
--- OUTSIDE RECORDS SUMMARY | 2025-03-06 13:59 | XMS_ITS | Encounter Summary ---
Author Organization [employer] Address [address] [facility] 7t [place] [address] Care Team Providers Care 2 Year Olds Preschool Teacher Name Role Phone Waleska Goldberg Primary Care Provider [phone] Abhishek Murdock RN Unavailable [phone] Reason for Visit * Reason Onset Date Comments Referral 05/28/2022 Encounter Details Date Type Department Care Team ([facility] st Contact Info) Description 05/28/2022 Telephone [facility] [address] [place], [place] [phone] Waleska Goldberg FNP [address] [place], [place] [phone] Referral Social History Tobacco Use Types Packs/Day [...] on filedocumented in this encounter Care Teams 2 Year Olds Preschool Teacher Relationship Specialty Start Date End Date Waleska Goldberg FNP [address] [place] [address] PCP - General Family Medicine 12/12/21 Abhishek Murdock RN [address] [place] [phone] Registered Nurse Family Medicine 12/20/24 01/07/25 Gloria Flores Technical Training ManagerSales Service Promoter 03/13/23 documented as of this encounter
--- OUTSIDE RECORDS SUMMARY | 2025-03-06 13:59 | XMS_ITS | Encounter Summary ---
Author Organization [employer] Address [address] [facility] [address] [place] [address] Care Team Providers Care Textile Machinery Sales Representative Name Role Phone Waleska Goldberg GAS BLENDER Primary Care Provider [phone] Abhishek Murdock RN Unavailable [phone] Encounter Details Date Type Department Care Team (Late st Contact Info) Description 04/16/2024 Orders Only [facility] MED & P[facility]S [address] [place], [place] [phone] ProviderAleisha MD Social History Tobacco Use Types [...] your housing situation today? I have cierra sing 04/16/[address] you li [...] the past 12 months, has t he [employer], gas, oil or water company threatened to [...] documented as of this encounter Care Teams Textile Machinery Sales Representative Relationship Specialty Start Date End Date Waleska Goldberg FNP [address] [place] [phone] PCP - General Family Medicine 12/12/21 Abhishek Murdock, FARSHAD [address] [place] [address] Registered Nurse Family Medicine 12/20/24 01/07/25 Gloria Flores Fly Frame TenderCane Flume Feeding Machine Operator 03/13/23 documented as of this encounter
--- OUTSIDE RECORDS SUMMARY | 2025-03-06 13:59 | XMS_ITS | Encounter Summary ---
Author Organization [employer] Address [address] [facility] 7[address] [place] [address] Care Team Providers Care Manager Inpatient Name Role Phone Waleska Goldberg AUTO OVERHAULER Primary Care Provider [phone] Abhishek Murdock RN Unavailable [phone] Reason for Visit * Reason Comments Med Refill Encounter Details Date Type Department Care Team ([facility] st Contact Info) Description 06/07/2024 Refill [facility] MED & PEDS [address] [place], [place] [phone] Waleska Goldberg FNP [address] [place] [address] Fracture of left patella with routine healing [...] pt regarding message below via BLS ID# [id number]. Pt stated he has an appt scheduled [...] Ford RN - 06/08/2024 4:12 PM EST Fyi. Pt requesting refill of Percocet. Called via BLS ID# [id number]. Also called pt on 06/01/24 advisingof the message from PCP on 06/01/24: Please let him know that short course of opioid was sent in with plan for no refills. He should hopefully be feeling better, but if not, will need to follow up for visit. Walk in [place] extended open tonight PRN. Thank you! Pt then verbalized understanding. Pt called again for a refill today. Stated he does not want to goto walk in [place], asked for a f/u appt with PCP [...] as of this encounter Care Teams Manager Inpatient Relationship Specialty Start Date End Date Waleska Goldberg FNP [address] [place] [address] PCP - General Family Medicine 12/12/21 Abhishek Murdock RN [address] [place] [phone] Registered Nurse Family Medicine 12/20/24 01/07/25 Gloria Flores Installation EngineerInorganic Chemist 03/13/23 documented as of this encounter
[2025-03-06 14:23] LABS: MANUAL DIFF FLAG NO
[2025-03-06 14:25] LABS: Hematocrit 49.6 % (42.0-52.0); Hemoglobin 17.0 g/dl (14.0-18.0); Imm Gran Abs Auto 0.01 X10*3/uL (0.00-0.03); Imm Gran Pct Auto 0.2 % (0.0-0.4); Lymphocytes Absolute Auto 1.6 X10*3/uL (1.2-4.9); Mean Corpuscular HGB Conc 34.3 g/dl (31.0-36.0); Mean Corpuscular Hemoglobin 32.0 pg (27.0-33.0); Mean Corpuscular Volume 93.2 fL (80.0-98.0); NRBC Abs Auto 0.000 X10*3/uL (0.0-0.012); NRBC Pct Auto 0.0 /100WBC (0.0-0.2); Platelet Count 180 X10*3/uL (160-400); Red Blood Count 5.32 X10*6/uL (4.60-5.80); White Blood Count 5.6 X10*3/uL (4.8-10.8)
[2025-03-06 14:26] VITALS: BP 132/78; PULSE 64; RESP 16; O2SAT 95
[2025-03-06 14:39] LABS: Alanine Aminotransferase 32 U/L (0-40); Albumin Level 4.5 g/dL (3.5-5.0); Alkaline Phosphatase 123 U/L (39-117); Anion Gap 12 (12-20); Aspartate Amino Transferase 34 U/L (5-37); Blood Urea Nitrogen 24 mg/dL (9-16); Calcium 9.5 mg/dL (8.4-10.2); Carbon Dioxide 26 mmol/L (22-29); Chloride 106 mmol/L (96-108); Creatinine Clr Calc Pharmacy 61.6; Estimated Glomerular Filt Rate 57; Potassium 4.2 mmol/L (3.3-5.1); Sodium 140 mmol/L (135-145); Total Protein 7.3 g/dL (6.5-8.0)
[2025-03-06 16:20] VITALS: BP 149/91; PULSE 61; RESP 20; O2SAT 99
[2025-03-06 16:29] LABS: Appearance Urine Clear; Glucose Urine UA >=1000 mg/dL (Negative); PH 6.0 (5.0-9.0); Specific Gravity - Urine >= 1.030 (1.005-1.025); UMIC TRIGGER UACC YES
[2025-03-06 19:05] VITALS: BP 149/91; PULSE 61; RESP 20; TEMP 36.6; O2SAT 99
== END 2025-03-06 19:05 | disposition home or self-care (01) ==
PROVIDERS: Physician Assistant Medical; Emergency Provider Emergency Medicine Emergency Medical Services; PCP Registered Nurse
DX: K59.00 Constipation, unspecified (principal); R10.32 Left lower quadrant pain; R30.0 Dysuria; R39.89 Other symptoms and signs involving the genitourinary system; Z79.899 Other long term (current) drug therapy
CPT/HCPCS: 36415; 51798; 74176; 80053; 81001; 85025; 96372; 96374; 99284; J2270

== ENCOUNTER → 2025-03-06 15:25 | Outpatient (BNV) | payer MEDICAID, SELFPAY | PROVIDERS: Emergency Provider Emergency Medicine Emergency Medical Services; PCP Registered Nurse; Visit Provider Radiology Diagnostic Radiology | DX: K59.00 Constipation, unspecified (principal); N20.0 Calculus of kidney; N40.0 Benign prostatic hyperplasia without lower urinary tract symptoms; I25.84 Coronary atherosclerosis due to calcified coronary lesion; N62 Hypertrophy of breast | CPT/HCPCS: 74176 ==

== ENCOUNTER 2025-03-07 14:23 | Outpatient (REF) | payer MEDICAID, SELFPAY ==
--- OUTSIDE RECORDS SUMMARY | 2025-03-04 08:45 | XMS_ITS | Encounter Summary ---
Author Organization [employer] Address [address] [place] [address] Care Team Providers Care Softwood Faller Name Role Phone Waleska Goldberg DRAWING PRESS OPERATOR Primary Care Provider [phone] Reason for Visit * Reason Comments Routine Cleaning Dental Exam Encounter Details Date Type Department Care Team ([facility] st Contact Info) Description 03/04/2025 8:45 AM EST Office Visit [facility] [address] [place] [address] Omaira Means Encounter for dental examination (Primary [...] Index - - documented in this encounter Progress Notes * Sarita Mckee DDS - 03/04/2025 8:45 AM EST Dental procedures in this visit D0120 - PERIODIC ORAL EVALUATION - ESTABLISHED PATIENT (Completed) Service provider: Sarita Mckee DDS Billing provider: Sarita Mckee DDS Patient ID: Barrett Hickman is a 59 y.o. male. Time Out: No data recorded Location: [facility] Tooth: Maxilla and Mandible Procedure: Exam, X-rays, and Prophylaxis Verified the above with patient, assistant quality manager, and provider. Confirmed via patient's chart, intraorally and by radiographs. Child And Family Counselor: not applicable Chief Complaint Patient presents with Routine Cleaning Dental Exam Medical Hx: Vitals: Blood pressure 123/70. Medical History[1] Medications: Encounter Medications[2] Objective HPI Soft Tissue Exam No findings documented this visit Head and Neck Exam: Lymph Nodes, Lips, Palate, Buccal Mucosa, Floor of Mouth, Tongue, Tonsils, Alveolar Ridges, Oropharynx, Salivary Ducts, and Vestibules - no significant findings observed OCS: negative Dental Exam Radiographic Interpretation: Associated radiographs for today's visit were reviewed and finding(s) were discussed with the patient. Findings include: caries, missing teeth, bone loss generalized, bruxism, wearing of incisal edges Hard Tissue Exam: Decay noted - see charting and treatment plan Reference tooth chart for additional findings. Oral Cancer Risk: Low Risk Oral Hygiene Instructions: [place] two times daily, modified ayala technique, Floss daily, Soft bristle toothbrush, [place] Tongue Caries Risk Assessment: High- two or more risk factors Assessment/Plan Ext 1, 6, 14, 15 CD upper Patient tolerated procedure well, all questions answered and expressed understanding. Dismissed in good condition. NV: Ext 1, 6, 14, 15 CD upper Print Production Associate: Omaira Means Dentist: Sarita Mckee DDS [1] Past Medical History: Diagnosis Date Bypass graft mechanical complication (CMS/HCC) Chronic systolic heart failure (HCC) 04/17/2018 -Followed by [facility] cardiology. Dr. Esteves/FLOUR BLENDER HELPER Edis -Hx of cardiac catheterization in [place] due to NH that led to coronary artery bypass surgery -Had further cardiac cath in [place] in 2019 that led to stenting of OM2 branch. -Pt to continue anticoagulation and nitroglycerin as needed through Cards Corneal scar, right eye Coronary arteriosclerosis 04/17/2018 Diabetes mellitus (HCC) History of heart surgery Hypertension Inguinal lymphadenopathy 08/27/2018 Trigger ring finger of right hand 06/08/2018 [2] Outpatient Encounter Medications as of 03/04/2025 Medication Sig Dispense Refill ammonium lactate (Amlactin) 12 % cream Apply topically if needed for dry skin. Apply to feet 1-2 times per day. 140 g 3 aspirin (Aspirin Low Dose) 81 MG chewable tablet TAKE 1 TABLET BY MOUTH EVERY MORNING 90 tablet 3 atorvastatin (Lipitor) 80 MG tablet TAKE 1 TABLET BY MOUTH EVERY EVENING FOR CHOLESTEROL 90 tablet 3 baclofen (Lioresal) 10 MG tablet TAKE 1 TABLET BY MOUTH THREE TIMES DAILY IN THE MORNING, AT NOON, AND AT BEDTIME NEEDED FOR MUSCLE SPASMS 60 tablet 1 Blood Glucose Monitoring Suppl (Sun LifeLight [place] Lite) w/Device kit Use to test blood sugar 1-2 times daily 1 kit 0 carvedilol (Coreg) 3.125 MG tablet TAKE 1 TABLET BY MOUTH TWICE DAILY IN THE MORNING AND IN THE EVENING WITH FOOD 180 tablet 3 clopidogrel (Plavix) 75 MG tablet TAKE 1 TABLET BY MOUTH EVERY MORNING 90 tablet 1 Continuous Blood Gluc Robotics Systems Engineer (FreeStyle Alfredo 2 [place]) device Use to check blood glucose levels throughout the day 1 each 0 Continuous Blood Gluc Sensor (FreeStyle Alfredo 2 Sensor) misc Use to check blood sugar levels throughout the day 2 each 11 Diclofenac Sodium 1 % gel APPLY 2 GRAMS TOPICALLY TO HANDS 2-3 TIMES PER DAY NEEDED FOR PAIN 100g 2 docusate sodium (Colace) 100 MG capsule TAKE 2 CAPSULES BY MOUTH EVERY DAY AT BEDTIME doxazosin (Cardura) 4 MG tablet TAKE 1 TABLET BY MOUTH AT BEDTIME empagliflozin (Jardiance) 10 MG Take 1 tablet (10 mg) by mouth Once per day. 90 tablet 1 ezetimibe (Zetia) 10 MG tablet TAKE 1 TABLET BY MOUTH EVERY MORNING 90 tablet 3 Fiber-Lax 625 MG tablet Take 1 tablet by mouth every 6 (six) hours during the day. finasteride (Proscar) 5 MG tablet Take 1 tablet by mouth Once per day. Do not crush, chew, or split. fluticasone (Flonase) 50 MCG/ACT nasal spray USE 1-2 SPRAYS IN EACH NOSTRIL DAILY NEEDED FOR NASAL CONGESTION 48 g 3 furosemide (Lasix) 20 MG tablet Take 1 tablet by mouth daily glucose blood (FREESTYLE LITE) test strip TEST BLOOD SUGAR FOUR TIMES DAILY AND NEEDED FOR BLOODSUGAR <70 MG/dL 100 strip 11 insulin aspart (NovoLOG FLEXPEN) 100 UNIT/ML pen INJECT 6 UNITS SUBCUTANEOUSLY 3 TIMES DAILY WITH MEALS AND USE 8 UNITS IF BG>200. 30 mL 2 isosorbide mononitrate ER (Imdur) 60 MG 24 hr tablet TAKE 1 TABLET BY MOUTH EVERY MORNING 90 tablet3 Lantus SoloStar 100 UNIT/ML pen INJECT 30 UNITS SUBCUTANEOUSLY ONCE DAILY 15 mL 4 lidocaine-prilocaine (Emla) 2.5-2.5 % cream Apply topically to right ankle as needed for pain up to3 times per day 30 g 1 lisinopril 2.5 MG tablet TAKE 1 TABLET BY MOUTH AT BEDTIME 90 tablet 3 metFORMIN (Glucophage) 500 MG tablet TAKE 1 TABLET BY MOUTH TWICE DAILY IN THE MORNING AND IN THE EVENING WITH MEALS 180 tablet 3 nitroglycerin (Nitrostat) 0.[address] 1 TABLET UNDER THE TONGUE NEEDED FOR CHEST PAIN- MAY REPEAT IN 5 MINUTES TWICE. IF NO RELIEF CALL 911 OR GO TO EMERGENCY ROOM. ranolazine (Ranexa) 500 MG 12 hr tablet TAKE 1 TABLET BY MOUTH TWICE DAILY IN THE MORNING AND AT BEDTIME TRUEplus Lancets 33G misc USE TO TEST BLOOD SUGAR FOUR TIMES DAILY 100 each 11 UltiGuard SafePack Pen Needle 32G X 4 MM misc USE DIRECTED 6 TIMES PER DAY 100 each 11 No facility-administered encounter medications on file as of 03/04/2025. * Omaira Means - 03/04/2025 8:45 AM EST Patient ID: Barrett Hickman is a 59 y.o. male. Time Out: No data recorded Location: [facility] Tooth: Maxilla and Mandible Procedure: Exam, X-rays, and Prophylaxis Verified the above with patient, assistant quality manager, and provider. Confirmed via patient's chart, intraorally and by radiographs. Child And Family Counselor: not applicable Medical Hx: Vitals: Blood pressure 123/70. Medications, Med Hx reviewed with patient and updated in chart. Treatment Provided Dental procedures in this visit D0120 - PERIODIC ORAL EVALUATION - ESTABLISHED PATIENT (Completed) Service provider: Sarita Mckee DDS Billing provider: Sarita Mckee DDS D1110 - PROPHYLAXIS - ADULT Full (Completed) Service provider: Omaira Means Billkristen provider: Sarita Mckee DDS D1330 - ORAL HYGIENE INSTRUCTIONS (Completed) Service provider: Omaira Means Billkristen provider: Sarita Mckee DDS D9450 - CASE PRESENTATION, DETAILED AND EXTENSIVE TREATMENT PLANNING (Completed) Service provider: Omaira Means Billkristen provider: Sarita Mckee DDS D0273 - BITEWINGS - 3 RADIOGRAPHIC IMAGES (Completed) Service provider: Omaira Means Billkristen provider: Sarita Mckee DDS D0220 - INTRAORAL - PERIAPICAL FIRST RADIOGRAPHIC IMAGE (Completed) Service provider: Omaira Means Billing provider: Sarita Mckee DDS D0230 - INTRAORAL - PERIAPICAL EACH ADDITIONAL RADIOGRAPHIC IMAGE (Completed) Service provider: Omaira Means Billing provider: Sarita Mckee DDS Instruments Used: Ultrasonic Scalers, Prophy angle, and floss Fluoride: N/A Oral Cancer Screening: No lesions Head/Neck Exam: No Lesions Calculus: Light and Generalized Plaque: Light and Generalized Stain: Light and Generalized Bleeding: Light and Generalized Gingiva: Perio Charting Completed and Recession- generalized OH: Poor Perio Chart: Completed Oral hygiene instructions provided to patient including brushing technique and flossing. Recommendations: [place] two times daily, modified ayala technique, Floss daily, Electric toothbrush, Soft bristle toothbrush, [place] Tongue, Anti-sensitivity toothpaste Recall Frequency: 6 mo NV: 6mrc Hygienist: Omaira Means RDH Cosigned by Sarita Mckee DDS at 03/07/2025 9:38 AM EST Associated attestation - Sarita Mckee DDS - 03/07/2025 9:38 AM EST I have reviewed the documentation and dental procedures made by the rendering provider, Omaira eMans RDH, and approve their chart entries for this visit. Sarita Mckee DDS documented in this encounter Plan of Treatment [...] patients manage their type 2 diabetes No Romana Pedersone VENEER DRIER FEEDER Weekly blood pressure task Care Plan Weekly blood pressure task No Romana Pedersone VENEER DRIER FEEDER Help patients manage their type 2 diabetes Care Plan Help patients manage their type 2 diabetes No Romana Pedersone, VENEER DRIER FEEDER Patient has chronic kidney disease Care Plan Patient has chronic kidney disease No Radha Pedersondie, VENEER DRIER FEEDER Help patients manage their type 2 diabetes Care Plan Help patients manage their type 2 diabetes No Radha Pedersondie, VENEER DRIER FEEDER Patient has diabetic neuropathy Care Plan Patient has diabetic neuropathy No Romana Pedersone, VENEER DRIER FEEDER Weekly blood pressure task Care Plan Weekly blood pressure task No Romana Pedersone VENEER DRIER FEEDER Weekly blood pressure task Care Plan Weekly blood pressure task No Radha Pedersondie, VENEER DRIER FEEDER Patient has chronic kidney disease Care Plan Patient has chronic kidney disease No Dacia, Claudette, VENEER DRIER FEEDER Patient has chronic kidney disease Care Plan Patient has chronic kidney disease No Radha Pedersondie, VENEER DRIER FEEDER Patient has diabetic neuropathy Care Plan Patient has diabetic neuropathy No Dacia, Claudette, VENEER DRIER FEEDER Patient has diabetic neuropathy Care Plan Patient has diabetic neuropathy No Romana Pedersone, VENEER DRIER FEEDER Weekly blood pressure task Care Plan Weekly blood pressure task No Josep Kothari Weekly blood pressure task Care Plan Weekly blood pressure task No Josep Kothari Weekly blood pressure task Care Plan Weekly blood pressure task No Josep Kothari Patient has chronic kidney disease Care Plan Patient has chronic kidney disease No Fred Kothariysha Patient has chronic kidney disease Care Plan Patient has chronic kidney disease No Fred Kothariysha Patient has chronic kidney disease Care Plan Patient has chronic kidney disease No Fred Kothariysha Patient has diabetic neuropathy Care Plan Patient has diabetic neuropathy No Fred Kothariysha Patient has diabetic neuropathy Care Plan Patient has diabetic neuropathy No Josep Kothari Patient has diabetic neuropathy Care Plan Patient has diabetic neuropathy No Josep Kothari Weekly blood pressure task Care Plan Weekly blood pressure task No [place], Claudette, VENEER DRIER FEEDER Weekly blood pressure task Care Plan Weekly blood pressure task No [place], Claudette, VENEER DRIER FEEDER Weekly blood pressure task Care Plan Weekly blood pressure task No Dacia, Claudette, VENEER DRIER FEEDER Patient has chronic kidney disease Care Plan Patient has chronic kidney disease No Dacia, Claudette, VENEER DRIER FEEDER Patient has chronic kidney disease Care Plan Patient has chronic kidney disease No [place], Claudette, VENEER DRIER FEEDER Patient has chronic kidney disease Care Plan Patient has chronic kidney disease No Dacia, Claudette, VENEER DRIER FEEDER Patient has diabetic neuropathy Care Plan Patient has diabetic neuropathy No [place], Claudette, VENEER DRIER FEEDER Patient has diabetic neuropathy Care Plan Patient has diabetic neuropathy No Dacia, Claudette, VENEER DRIER FEEDER Patient has diabetic neuropathy Care Plan Patient has diabetic neuropathy No [place], Claudette, VENEER DRIER FEEDER Weekly blood pressure task Care Plan Weekly blood pressure task No Dacia, Claudette, VENEER DRIER FEEDER Weekly blood pressure task Care Plan Weekly blood pressure task No Dacia, Claudette, VENEER DRIER FEEDER Weekly blood pressure task Care Plan Weekly blood pressure task No [place], Claudette, VENEER DRIER FEEDER Patient has chronic kidney disease Care Plan Patient has chronic kidney disease No Dacia, Claudette, VENEER DRIER FEEDER Patient has chronic kidney disease Care Plan Patient has chronic kidney disease No [place], Claudette, VENEER DRIER FEEDER Patient has chronic kidney disease Care Plan Patient has chronic kidney disease No [place], Claudette, VENEER DRIER FEEDER Patient has diabetic neuropathy Care Plan Patient has diabetic neuropathy No [place], Claudette, VENEER DRIER FEEDER Patient has diabetic neuropathy Care Plan Patient has diabetic neuropathy No [place], Claudette, VENEER DRIER FEEDER Patient has diabetic neuropathy Care Plan Patient has diabetic neuropathy No Dacia, Claudette, VENEER DRIER FEEDER Weekly blood pressure task Care Plan Weekly blood pressure task No Phalen, Waleska, DRAWING PRESS OPERATOR Weekly blood pressure task Care Plan Weekly blood pressure task No Phalen, Waleska, DRAWING PRESS OPERATOR Weekly blood pressure task Care Plan Weekly blood pressure task No Phalen, Waleska, DRAWING PRESS OPERATOR Patient has chronic kidney disease Care Plan Patient has chronic kidney disease No Phalen, Waleska, DRAWING PRESS OPERATOR Patient has chronic kidney disease Care Plan Patient has chronic kidney disease No Phalen, Waleska, DRAWING PRESS OPERATOR Patient has chronic kidney disease Care Plan Patient has chronic kidney disease No Phalen, Waleska, DRAWING PRESS OPERATOR Patient has diabetic neuropathy Care Plan Patient has diabetic neuropathy No Phalen, Waleska, DRAWING PRESS OPERATOR Patient has diabetic neuropathy Care Plan Patient has diabetic neuropathy No Waleska Goldberg, DRAWING PRESS OPERATOR Patient has diabetic neuropathy Care Plan Patient has diabetic neuropathy No Waleska Goldberg DRAWING PRESS OPERATOR Weekly blood pressure task Care Plan Weekly blood pressure task No Clary Omaira Weekly blood pressure task Care Plan [...] documented as of this encounter Care Teams Softwood Faller Relationship Specialty Start Date End Date Waleska Goldberg FNP [address] [place] [address] PCP - General Family Medicine 12/12/21 Gloria Flores Retention SpecialistPest Control Chemical Technician 03/13/23 documented as of this encounter
--- OUTSIDE RECORDS SUMMARY | 2025-03-04 10:00 | XMS_ITS | Encounter Summary ---
Author Organization [employer] Address [address] [facility] [address] [place] [address] Care Team Providers Care Tnt Line Supervisor Name Role Phone Waleska Goldberg Primary Care Provider [phone] Reason for Referral * Consultation (Routine) - Authorized Specialty Diagnoses / Procedures Referred By Shayne rodriguez Referred To Contact Gastroenterology Diagnoses Colon cancer screening Waleska Goldberg FNP [address] [place] [address] Phone: tel: fax: [facility] Referral ID Status Reason Start Date Expiration Date Visits Requested Visits Authorized [id number] Authorized Specialty Services Required 03/04/2026 1 1 Reason for Visit * Reason Comments Diabetes Nebulizer Machine Wants a Rx Encounter Details Date Type Department Care Team ([facility] st Contact Info) Description 03/04/2025 10:00 AM EST Office Visit [facility] [address] [place] [address] Waleska Goldberg FNP [address] [place] [address] Arthritis of both hips (Primary Dx); Type 2 diabetes mellitus without complication, with long-term current use of insulin (HCC); Encounter for immunization; Pain of right hip; Colon cancer screening; Trigger finger of right thumb; History of wheezing; Nephrolithiasis; Abdominal pain, unspecified abdominal location Social History Tobacco Use Types Packs/Day Years [...] Sign Reading Time Taken Comments Blood Pressure 117/73 03/04/2025 10:24 AM EST Pulse 71 03/04/2025 10:24 AM EST Temperature 36.2 C (97.1 F) 03/04/2025 10:24 AM EST Respiratory Rate 20 03/04/2025 10:24 AM EST Oxygen Saturation 99% 03/04/2025 10:24 AM EST Inhaled Oxygen Concentration - - Weight 74.8 kg (165 lb) 03/04/2025 10:24 AM EST Height 172.7 cm (5' 8 ) 03/04/2025 10:24 AM EST Body Mass Index 25.09 03/04/2025 10:24 AM EST documented in this encounter Patient Instructions * Patient Instructions* AMERICO Lebron - 03/04/2025 10:00 AM EST - Llamar para kike de colonoscopia: documented in this encounter Progress Notes * AMERICO Lebron - 03/04/2025 10:00 AM EST Subjective: Barrett Hickman is a 59 y.o. male w/ PMH CHF, hypertension, s/p CABG x 5, MD, cervical spondylosis, BPH, who presents to the office for a follow up visit. Interim History: Last PCP visit: 10/04/24 02/26/25: [facility] ED evaluation for left flank pain and congested cough. CT abdominal/pelvis w/ IV contrast. Left flank pain - non-obstructing nephrolithiasis in the lower poles both kidneys w/o hydronephrosis. Severe stool burden. Bibasilar pulm opacities concerning for pneumonitis/PNA. Nonspecific wal l thickening of the urinary bladder. Chest x-ray w/o acute pulmonary disease. Refill of albuterol and sent antibiotics for bronchitis w/ amox. Current concerns: T2DM: he reports good med adherence. A1c has improved today from 7.9% last appointment to 6.6% today. Denies any polydipsia, polyphagia, or polyuria. Cont current regimen. Abdominal pain: describes chronic discomfort in right lower quadrant of abdomen extending to hip. Denies any pain radiating to groin. History of appendectomy. Denies any N/V/D. Some constipation, anddoes feel better after having BM. He was due to follow up with GI regarding repeat colonoscopy, butnot yet scheduled. Encouraged to f/up with their office. Review of Systems Constitutional: Negative for chills and fever. Cardiovascular: Negative for chest pain and palpitations. Gastrointestinal: Positive for abdominal pain and constipation. Negative for diarrhea, nausea and vomiting. Endocrine: Negative for polydipsia, polyphagia and polyuria. Visit Vitals BP 117/73 (BP Location: Left arm, Patient Position: Sitting, BP Cuff Size: Adult) Pulse 71 Temp 97.1 ??F (36.2 ??C) (Temporal) Resp 20 Ht 5' 8 (1.727 m) Wt 165 lb (74.8 kg) SpO2 99% BMI 25.09 kg/m?? Smoking Status Never BSA 1.89 m?? Physical Exam Constitutional: Appearance: Normal appearance. Cardiovascular: Rate and Rhythm: Normal rate and regular rhythm. Pulmonary: Effort: Pulmonary effort is normal. Abdominal: Tenderness: There is generalized abdominal tenderness and tenderness in the right upper quadrant and right lower quadrant. There is no right CVA tenderness, left CVA tenderness, guarding or rebound. Comments: Mild TTP RUQ, RLQ. No rebound, no guarding. No indication of acute abdomen on exam. Neurological: Mental Status: He is alert and oriented to person, place, and time. Psychiatric: Mood and Affect: Mood normal. Behavior: Behavior normal. Problem List Items Addressed This Visit Endocrine and Metabolic Type 2 diabetes mellitus (HCC) Overview -Previously followed by [facility] Endo for management, although provider left and have not yet established with new provider -Reports BG readings usually ~120 fasting, and then around 100-200 throughout the day -Current regimen includes: -30 units nightly lantus -Novolog 6 units before meals -metformin 500mg BID -Jardiance 10mg daily -CGM approved, plan for initial teaching and device application 08/14/22 at [facility] -Podiatry: referral placed 06/05/22 -Optometry: last CEE September 2022 ([facility]) Lab Results Component Value Date HGBA1C 6.6 (A) 03/04/2025 Current Assessment & Plan Well controlled, cont with current regimen Relevant Orders POCT Glucose (Completed) POCT Hgb A1c (Completed) Genitourinary and Reproductive Nephrolithiasis Current Assessment & Plan - Feb 2025 ED visit: non-obstructing nephrolithiasis in the lower poles both kidneys w/o hydronephrosis. - Reviewed s/symptoms of nephrolithiasis and ED precautions - Reports that he is established with Urology and has upcoming renal US scheduled - Encouraged good hydration Musculoskeletal and Injuries Arthritis of both hips - Primary Current Assessment & Plan - Due to lack of pain radiating to the groin, unclear if related to hip or back. - Check XR right hip and low back - Symptomatic management with APAP PRN Relevant Medications acetaminophen (Acetaminophen 8 Hour) 650 MG ER tablet Trigger finger of right thumb Current Assessment & Plan - Followed by [facility] Ortho - evaluation September 2024 by MARYBEL Davis Rec at that time was to hold steroid injection d/t poorly controlled diabetes, although diabetes well controlled at this time. May consider f/up with Ortho if symptoms persist. Relevant Medications acetaminophen (Acetaminophen 8 Hour) 650 MG ER tablet Other Visit Diagnoses Encounter for immunization Relevant Medications acetaminophen (Acetaminophen 8 Hour) 650 MG ER tablet Other Relevant Orders PCV-20 VACCINE 6 wks + (Completed) Pain of right hip Relevant Medications acetaminophen (Acetaminophen 8 Hour) 650 MG ER tablet Other Relevant Orders XR Hip 2 or 3 Views Right XR Lumbar Spine 2-3 Views Colon cancer screening Relevant Orders Referral to Gastroenterology History of wheezing - No wheezing on exam, recent epsidoe of PNA. requesting albuterol HFA PRN. Med sent to pharmacy. Relevant Medications albuterol 108 (90 Base) MCG/ACT inhaler Abdominal pain, unspecified abdominal location - Multiple possible contributing factors including nephrolithiasis, cholelithiasis, OA of hips, other. Exam not concerning for acute abdomen. Reviewed strict ED precautions. Plan to follow up with Urology as scheduled. Encouraged to contact GI for follow up. Check XR of hip and lumbar spine. Follow up: 3 months, sooner as needed documented in this encounter Miscellaneous Notes * Assessment & Plan Note - AMERICO Lebron - 03/04/2025 5:09 PM ESTAssociated Problem(s): Nephrolithiasis - Feb 2025 ED visit: non-obstructing nephrolithiasis in the lower poles both kidneys w/o hydronephrosis. - Reviewed s/symptoms of nephrolithiasis and ED precautions - Reports that he is established with Urology and has upcoming renal US scheduled - Encouraged good hydration * Assessment & Plan Note - AMERICO Lebron - 03/04/2025 2:05 PM ESTAssociated Problem(s): Arthritis of both hips - Due to lack of pain radiating to the groin, unclear if related to hip or back. - Check XR right hip and low back - Symptomatic management with APAP PRN * Assessment & Plan Note - AMERICO Lebron - 03/04/2025 2:00 PM ESTAssociated Problem(s): Type 2 diabetes mellitus (HCC) Well controlled, cont with current regimen * Assessment & Plan Note - AMERICO Lebron - 03/04/2025 1:52 PM ESTAssociated Problem(s): Trigger finger of right thumb - Followed by [facility] Ortho - evaluation September 2024 by MARYBEL Davis Rec at that time was to hold steroid injection d/t poorly controlled diabetes, although diabetes well controlled at this time. May consider f/up with Ortho if symptoms persist. documented in this encounter Plan of Treatment Scheduled Orders Name Type Priority Associated Diagnoses Orde r Schedule XR Hip 2 or 3 Views Right Imaging Routine Pain of right hip Expected: 03/04/2025, Expires: 03/04/2026 XR Lumbar Spine 2-3 Views Imaging Routine Pain of right hip Expected: 03/04/2025, Expires: 03/04/2026 Scheduled Referrals Name Type Priority Associated Diagnoses Order Schedule Referral to Gastroenterology Outpatient Referral Routine Colon cancer screening Expected: 03/04/2025 (Approximate), Expires: 03/04/2026 documented as of this encounter Goals Goal Patient Goal Type Associated Problems Recent Progress Patient-Stated? Author Help patients manage their type 2 diabetes Care Plan Help patients manage their type 2 diabetes Claudette Michael LPN Weekly blood pressure task Care Plan Weekly blood pressure task No Claudette Pederson LPN Help patients manage their type 2 diabetes Care Plan Help patients manage their type 2 diabetes No Claudette Pederson LPN Patient has chronic kidney disease Care Plan Patient has chronic kidney disease Araceli Pederson Claudette, APPLICATIONS DEVELOPMENT CONSULTANT Help patients manage their type 2 diabetes Care Plan Help patients manage their type 2 diabetes No Radha Pedersondie, APPLICATIONS DEVELOPMENT CONSULTANT Patient has diabetic neuropathy Care Plan Patient has diabetic neuropathy No DaciaRadhaClaudette, APPLICATIONS DEVELOPMENT CONSULTANT Weekly blood pressure task Care Plan Weekly blood pressure task No [place] AriRadhaClaudette, APPLICATIONS DEVELOPMENT CONSULTANT Weekly blood pressure task Care Plan Weekly blood pressure task No [place] AriRadhaClaudette, APPLICATIONS DEVELOPMENT CONSULTANT Patient has chronic kidney disease Care Plan Patient has chronic kidney disease No [place] AriRadhaClaudette, APPLICATIONS DEVELOPMENT CONSULTANT Patient has chronic kidney disease Care Plan Patient has chronic kidney disease No [place] AriRadhaClaudette, APPLICATIONS DEVELOPMENT CONSULTANT Patient has diabetic neuropathy Care Plan Patient has diabetic neuropathy No [place] Ari, Claudette, APPLICATIONS DEVELOPMENT CONSULTANT Patient has diabetic neuropathy Care Plan Patient has diabetic neuropathy No Radha Pedersondie, APPLICATIONS DEVELOPMENT CONSULTANT Weekly blood pressure task Care Plan Weekly blood pressure task No Kothari Jaysha Weekly blood pressure task Care Plan Weekly blood pressure task No Kothari Jaysha Weekly blood pressure task Care Plan Weekly blood pressure task No Kothari Jaysha Patient has chronic kidney disease Care [...] Care Plan Patient has diabetic neuropathy No Kothari Jaysha Weekly blood pressure task Care Plan Weekly blood pressure task No [place] AriRadhaClaudette, APPLICATIONS DEVELOPMENT CONSULTANT Weekly blood pressure task Care Plan Weekly blood pressure task No DaciaRadhaClaudette, APPLICATIONS DEVELOPMENT CONSULTANT Weekly blood pressure task Care Plan Weekly blood pressure task No Radha Pedersondie, APPLICATIONS DEVELOPMENT CONSULTANT Patient has chronic kidney disease Care Plan Patient has chronic kidney disease No DaciaRadhaClaudette, APPLICATIONS DEVELOPMENT CONSULTANT Patient has chronic kidney disease Care Plan Patient has chronic kidney disease No [place] Ari, Claudette, APPLICATIONS DEVELOPMENT CONSULTANT Patient has chronic kidney disease Care Plan Patient has chronic kidney disease No [place] Ari, Claudette, APPLICATIONS DEVELOPMENT CONSULTANT Patient has diabetic neuropathy Care Plan Patient has diabetic neuropathy No DaciaRadhaClaudette, APPLICATIONS DEVELOPMENT CONSULTANT Patient has diabetic neuropathy Care Plan Patient has diabetic neuropathy No [place] Ari, Claudette, APPLICATIONS DEVELOPMENT CONSULTANT Patient has diabetic neuropathy Care Plan Patient has diabetic neuropathy No Dacia, Claudette, APPLICATIONS DEVELOPMENT CONSULTANT Weekly blood pressure task Care Plan Weekly blood pressure task No [place] Ari, Claudette, APPLICATIONS DEVELOPMENT CONSULTANT Weekly blood pressure task Care Plan Weekly blood pressure task No Dacia, Claudette, APPLICATIONS DEVELOPMENT CONSULTANT Weekly blood pressure task Care Plan Weekly blood pressure task No [place] Ari, Claudette, APPLICATIONS DEVELOPMENT CONSULTANT Patient has chronic kidney disease Care Plan Patient has chronic kidney disease No [place] Ari, Claudette, APPLICATIONS DEVELOPMENT CONSULTANT Patient has chronic kidney disease Care Plan Patient has chronic kidney disease No Dacia, Claudette, APPLICATIONS DEVELOPMENT CONSULTANT Patient has chronic kidney disease Care Plan Patient has chronic kidney disease No [place] Ari, Claudette, APPLICATIONS DEVELOPMENT CONSULTANT Patient has diabetic neuropathy Care Plan Patient has diabetic neuropathy No Dacia, Claudette, APPLICATIONS DEVELOPMENT CONSULTANT Patient has diabetic neuropathy Care Plan Patient has diabetic neuropathy No [place] Ari, Claudette, APPLICATIONS DEVELOPMENT CONSULTANT Patient has diabetic neuropathy Care Plan Patient has diabetic neuropathy No [place] Ari, Claudette, APPLICATIONS DEVELOPMENT CONSULTANT Weekly blood pressure task Care Plan Weekly blood pressure task No Phalen, Waleska, MOTORCYCLE DESIGNER Weekly blood pressure task Care Plan Weekly blood pressure task No Phalen, Waleska, MOTORCYCLE DESIGNER Weekly blood pressure task Care Plan Weekly blood pressure task No Phalen, Waleska, MOTORCYCLE DESIGNER Patient has chronic kidney disease Care Plan Patient has chronic kidney disease No Phalen, Waleska, MOTORCYCLE DESIGNER Patient has chronic kidney disease Care Plan Patient has chronic kidney disease No Phalen, Waleska, MOTORCYCLE DESIGNER Patient has chronic kidney disease Care Plan Patient has chronic kidney disease No Phalen, Waleska, MOTORCYCLE DESIGNER Patient has diabetic neuropathy Care Plan Patient has diabetic neuropathy No Phalen, Waleska, MOTORCYCLE DESIGNER Patient has diabetic neuropathy Care Plan Patient has diabetic neuropathy No Phalen, Waleska, MOTORCYCLE DESIGNER Patient has diabetic neuropathy Care Plan Patient has diabetic neuropathy No Phalen, Waleska, MOTORCYCLE DESIGNER Weekly blood pressure task Care Plan Weekly [...] Plan Patient has chronic kidney disease No Menas, Omaira Patient has chronic kidney disease Care Plan Patient has chronic kidney disease No Means, Omaira Patient has diabetic neuropathy Care Plan Patient has diabetic neuropathy No Clary, Omaira Patient has diabetic neuropathy Care Plan Patient has diabetic neuropathy No Clary Omaira Patient has diabetic neuropathy Care Plan Patient has diabetic neuropathy No Omaira Means documented as of this encounter Procedures Procedure Name Priority Date/Time Associated Diagnosis Comments POCT GLYCATED HEMOGLOBIN, TOTAL Routine 03/04/2025 10:28 AM EST Type 2 diabetes mellitus without complication, with long-term current use of insulin ([facility]) POCT GLUCOSE Routine 03/04/2025 10:27 AM EST Type 2 diabetes mellitus without complication, with long-term current use of insulin ([facility]) documented in this encounter Results * (ABNORMAL) POCT Hgb A1c (03/04/2025 10:28 AM EST) Hemoglobin A1C 6.6(A) 4.0 - 5.7 % QC Media Lot # [id number] Lot# Expiration Date ,027 Blood 03/04/2025 10:2 8 AM EST Lobster Waleska [employer]rom[employer] MOTORCYCLE DESIGNER POINT OF CARE TEST ENTER/EDIT ORDERABLES Final Result * POCT Glucose (03/04/2025 10:27 AM EST) Glucose Blood, POC 121 60 - 200 mg/dL QC Media Lot # [id number] Lot# Expiration Date 96,026 Blood Capillary blood specimen / Unknown 03/04/2025 10:27 AM EST us Waleska Phalen MOTORCYCLE DESIGNER POINT OF CARE TEST ENTER/EDIT ORDERABLES Final Result documented in this encounter Visit Diagnoses Diagnosis Arthritis of both hips- Primary Type 2 diabetes mellitus without complication, with long-term current use of insulin ([facility]) Encounter for immunization Pain of right hip Colon cancer screening Special screening for malignant neoplasms, colon Trigger finger of right thumb History of wheezing Nephrolithiasis Calculus of kidney Abdominal pain, unspecified abdominal location documented in this encounter Additional Health Concerns [...] documented as of this encounter Care Teams Tnt Line Supervisor Relationship Specialty Start Date End Date Waleska Goldberg FNP [address] [place] [id number] PCP - General Family Medicine 12/12/21 Gloria Flores [employer] DeveloperStem Dryer Maintainer 03/13/23 documented as of this encounter
--- NOTE | ~2025-03-07 | XR_ITS ---
EXAMINATION: XR HIP, RIGHT CLINICAL INFORMATION: 59 y/o with chronic hip pain COMPARISON: None available. TECHNIQUE: Two views of the right hip. FINDINGS: No acute fracture or dislocation. Alignment is anatomic. Lateral acetabular subchondral cyst. Hip joint space is maintained. No abnormal soft tissue calcification. XR/XR hip RT min 2V IMPRESSION: Mild right hip arthritis Electronically signed by: William Anthony MD 03/08/2025 10:46 AM MARY JANE
--- NOTE | ~2025-03-07 | XR_ITS ---
EXAMINATION: XR LUMBOSACRAL SPINE CLINICAL INFORMATION: 59 y/o with chronic hip pain T low back pain COMPARISON: None available. TECHNIQUE: Three views of the lumbosacral spine. FINDINGS: 5 nonrib-bearing lumbar type vertebrae. Normal lumbar lordosis. Vertebral body heights are maintained. No evidence of acute fracture or subluxation. Disc height loss at T11-12 redemonstrated. Small endplate spurring at multiple levels in the lumbar spine. Facet degeneration lower lumbar spine. No suspicious bony lesion. SI joints are symmetric. No abnormal soft tissue calcification. XR/XR lumbar spine 2-3V IMPRESSION: No acute findings. Mild lumbar spondylosis. Electronically signed by: William Anthony MD 03/08/2025 11:16 AM MARY JANE
--- OUTSIDE RECORDS SUMMARY | 2025-03-07 19:19 | XMS_ITS | Encounter Summary ---
Author Organization [employer] Address [address] [place] [address] Care Team Providers Care Recreation Activities Coordinator Name Role Phone Waleska Goldberg AMERICO Primary Care Provider [phone] Encounter Details Date Type Department Care Team ([facility] st Contact Info) Description 03/03/2025 Telephone [facility] [address] [place], [place] [id number] Claudette Pederson LPN Social History Tobacco Use [...] Plan Weekly blood pressure task No Claudette Pederosn LPN Patient has chronic kidney disease Care Plan Patient has chronic kidney disease No Claudette Pederson LPN Patient has chronic kidney disease Care Plan Patient has chronic kidney disease No Claudette Pederson LPN Patient has diabetic neuropathy Care Plan Patient has diabetic neuropathy No [place], Claudette, CHARGE MASTER ANALYST Patient has diabetic neuropathy Care Plan Patient has diabetic neuropathy No [place], Claudette, CHARGE MASTER ANALYST Weekly blood pressure task Care Plan Weekly [...] Weekly blood pressure task No [place], Claudette, CHARGE MASTER ANALYST Weekly blood pressure task Care Plan Weekly blood pressure task No [place], Claudette, CHARGE MASTER ANALYST Weekly blood pressure task Care Plan Weekly blood pressure task No [place], Claudette, CHARGE MASTER ANALYST Patient has chronic kidney disease Care Plan Patient has chronic kidney disease No [place], Claudette, CHARGE MASTER ANALYST Patient has chronic kidney disease Care Plan Patient has chronic kidney disease No [place], Claudette, CHARGE MASTER ANALYST Patient has chronic kidney disease Care Plan Patient has chronic kidney disease No [place], Claudette, CHARGE MASTER ANALYST Patient has diabetic neuropathy Care Plan Patient has diabetic neuropathy No [place], Claudette, CHARGE MASTER ANALYST Patient has diabetic neuropathy Care Plan Patient has diabetic neuropathy No [place], Claudette, CHARGE MASTER ANALYST Patient has diabetic neuropathy Care Plan Patient has diabetic neuropathy No [place], Claudette, CHARGE MASTER ANALYST Weekly blood pressure task Care Plan Weekly blood pressure task No [place], Claudette, CHARGE MASTER ANALYST Weekly blood pressure task Care Plan Weekly blood pressure task No [place], Claudette, CHARGE MASTER ANALYST Weekly blood pressure task Care Plan Weekly blood pressure task No [place], Claudette, CHARGE MASTER ANALYST Patient has chronic kidney disease Care Plan Patient has chronic kidney disease No [place], Claudette, CHARGE MASTER ANALYST Patient has chronic kidney disease Care Plan Patient has chronic kidney disease No [place], Claudette, CHARGE MASTER ANALYST Patient has chronic kidney disease Care Plan Patient has chronic kidney disease No [place], Claudette, CHARGE MASTER ANALYST Patient has diabetic neuropathy Care Plan Patient [...] documented as of this encounter Care Teams Recreation Activities Coordinator Relationship Specialty Start Date End Date Waleska Golbderg FNP [address] [place] [address] PCP - General Family Medicine 12/12/21 Gloria Flores Digital Operations AnalystBusiness Coordinator 03/13/23 documented as of this encounter
--- OUTSIDE RECORDS SUMMARY | 2025-03-07 19:19 | XMS_ITS | Encounter Summary ---
Author Organization [employer] Address [address] [place] [address] Care Team Providers Care Banquet Bartender Name Role Phone Waleska Goldberg DINKEY LOCOMOTIVE ENGINEER Primary Care Provider [phone] Encounter Details Date Type Department Care Team [...] their type 2 diabetes No Romana Pedersone WORKSITE WELLNESS PRACTITIONER Weekly blood pressure task Care Plan Weekly blood pressure task No Romana Pedersone WORKSITE WELLNESS PRACTITIONER Help patients manage their type 2 diabetes Care Plan Help patients manage their type 2 diabetes No Romana Pedersone WORKSITE WELLNESS PRACTITIONER Patient has chronic kidney disease Care Plan Patient has chronic kidney disease No Romana Pedersone, WORKSITE WELLNESS PRACTITIONER Help patients manage their type 2 diabetes Care Plan Help patients manage their type 2 diabetes No Romana Pedersone WORKSITE WELLNESS PRACTITIONER Patient has diabetic neuropathy Care Plan Patient has diabetic neuropathy No Romana Pedersone, WORKSITE WELLNESS PRACTITIONER Weekly blood pressure task Care Plan Weekly blood pressure task No Romana Pedersone WORKSITE WELLNESS PRACTITIONER Weekly blood pressure task Care Plan Weekly blood pressure task No Radha Pedersondie, WORKSITE WELLNESS PRACTITIONER Patient has chronic kidney disease Care Plan Patient has chronic kidney disease No Radha Pedersondie, WORKSITE WELLNESS PRACTITIONER Patient has chronic kidney disease Care Plan Patient has chronic kidney disease No Romana Pedersone, WORKSITE WELLNESS PRACTITIONER Patient has diabetic neuropathy Care Plan Patient has diabetic neuropathy No Romana Pedersone, WORKSITE WELLNESS PRACTITIONER Patient has diabetic neuropathy Care Plan Patient has diabetic neuropathy No Romana Pedersone, WORKSITE WELLNESS PRACTITIONER Weekly blood pressure task Care Plan Weekly [...] Weekly blood pressure task No [place], Claudette, WORKSITE WELLNESS PRACTITIONER Weekly blood pressure task Care Plan Weekly blood pressure task No [place], Claudette, WORKSITE WELLNESS PRACTITIONER Weekly blood pressure task Care Plan Weekly blood pressure task No [place], Claudette, WORKSITE WELLNESS PRACTITIONER Patient has chronic kidney disease Care Plan Patient has chronic kidney disease No [place], Claudette, WORKSITE WELLNESS PRACTITIONER Patient has chronic kidney disease Care Plan Patient has chronic kidney disease No [place], Claudette, WORKSITE WELLNESS PRACTITIONER Patient has chronic kidney disease Care Plan Patient has chronic kidney disease No [place], Claudette, WORKSITE WELLNESS PRACTITIONER Patient has diabetic neuropathy Care Plan Patient has diabetic neuropathy No [place], Claudette, WORKSITE WELLNESS PRACTITIONER Patient has diabetic neuropathy Care Plan Patient has diabetic neuropathy No [place], Claudette, WORKSITE WELLNESS PRACTITIONER Patient has diabetic neuropathy Care Plan Patient has diabetic neuropathy No [place], Claudette, WORKSITE WELLNESS PRACTITIONER Weekly blood pressure task Care Plan Weekly blood pressure task No [place], Claudette, WORKSITE WELLNESS PRACTITIONER Weekly blood pressure task Care Plan Weekly blood pressure task No [place], Claudette, WORKSITE WELLNESS PRACTITIONER Weekly blood pressure task Care Plan Weekly blood pressure task No [place], Claudette, WORKSITE WELLNESS PRACTITIONER Patient has chronic kidney disease Care Plan Patient has chronic kidney disease No [place], Claudette, WORKSITE WELLNESS PRACTITIONER Patient has chronic kidney disease Care Plan Patient has chronic kidney disease No [place], Claudette, WORKSITE WELLNESS PRACTITIONER Patient has chronic kidney disease Care Plan Patient has chronic kidney disease No [place], Claudette, WORKSITE WELLNESS PRACTITIONER Patient has diabetic neuropathy Care Plan Patient has diabetic neuropathy No [place], Claudette, WORKSITE WELLNESS PRACTITIONER Patient has diabetic neuropathy Care Plan Patient has diabetic neuropathy No [place], Claudette, WORKSITE WELLNESS PRACTITIONER Patient has diabetic neuropathy Care Plan Patient has diabetic neuropathy No [place], Claudette, WORKSITE WELLNESS PRACTITIONER Weekly blood pressure task Care Plan Weekly blood pressure task No [place], Waleska, DINKEY LOCOMOTIVE ENGINEER Weekly blood pressure task Care Plan Weekly blood pressure task No [place], Waleska, DINKEY LOCOMOTIVE ENGINEER Weekly blood pressure task Care Plan Weekly blood pressure task No [place], Waleska, DINKEY LOCOMOTIVE ENGINEER Patient has chronic kidney disease Care Plan Patient has chronic kidney disease No [place], Waleska, DINKEY LOCOMOTIVE ENGINEER Patient has chronic kidney disease Care Plan Patient has chronic kidney disease No Phalarcelia Waleska, DINKEY LOCOMOTIVE ENGINEER Patient has chronic kidney disease Care Plan Patient has chronic kidney disease No Phalarcelia Waleska, DINKEY LOCOMOTIVE ENGINEER Patient has diabetic neuropathy Care Plan Patient has diabetic neuropathy No Phalarcelia Waleska, DINKEY LOCOMOTIVE ENGINEER Patient has diabetic neuropathy Care Plan Patient has diabetic neuropathy No Phalarcelia Walesak, DINKEY LOCOMOTIVE ENGINEER Patient has diabetic neuropathy Care Plan Patient has diabetic neuropathy No Phalarcelia Waleska, DINKEY LOCOMOTIVE ENGINEER Weekly blood pressure task Care Plan Weekly [...] documented as of this encounter Care Teams Banquet Bartender Relationship Specialty Start Date End Date Waleska Goldberg FNP [address] [place] [id number] PCP - General Family Medicine 12/12/21 Gloria Flores Food Safety ScientistAutoglazier 03/13/23 documented as of this encounter
--- OUTSIDE RECORDS SUMMARY | 2025-03-07 19:19 | XMS_ITS | Encounter Summary ---
Author Organization [employer] Address [address] [place] [address] Care Team Providers Care Disk Recoater Name Role Phone Waleska Goldberg Primary Care Provider [phone] Encounter Details Date Type Department Care Team ([facility] st Contact Info) Description 03/02/2025 Telephone [facility] [address] [place] [address] Waleska Goldberg FNP [address] [place], [place] [id number] Social History Tobacco Use Types Packs/Day Years [...] past 12 months, has t he electric, [employer], oil or water [employer] threatened to shut off services in your [...] Care Plan Patient has diabetic neuropathy No [place], Claudette, SHIRT MARKER Weekly blood pressure task Care Plan Weekly blood pressure task No DaciaRadhaClaudette, SHIRT MARKER Weekly blood pressure task Care Plan Weekly blood pressure task No [place] Claudette, SHIRT MARKER Patient has chronic kidney disease Care Plan Patient has chronic kidney disease No [place] Claudette, SHIRT MARKER Patient has chronic kidney disease Care Plan Patient has chronic kidney disease No DaciaRadhaClaudette, SHIRT MARKER Patient has diabetic neuropathy Care Plan Patient has diabetic neuropathy No [place], SHIRT MARKER Patient has diabetic neuropathy Care Plan Patient has diabetic neuropathy No [place], SHIRT MARKER Weekly blood pressure task Care Plan Weekly [...] Plan Weekly blood pressure task No DaciaRadhaClaudette, SHIRT MARKER Weekly blood pressure task Care Plan Weekly blood pressure task No DaciaRadhaClaudette, SHIRT MARKER Weekly blood pressure task Care Plan Weekly blood pressure task No DaciaRadhaClaudette, SHIRT MARKER Patient has chronic kidney disease Care Plan Patient has chronic kidney disease No DaciaRadhaClaudette, SHIRT MARKER Patient has chronic kidney disease Care Plan Patient has chronic kidney disease No DaciaRadhaClaudette, SHIRT MARKER Patient has chronic kidney disease Care Plan Patient has chronic kidney disease No DaciaRadhaClaudette, SHIRT MARKER Patient has diabetic neuropathy Care Plan Patient has diabetic neuropathy No [place], SHIRT MARKER Patient has diabetic neuropathy Care Plan Patient has diabetic neuropathy No [place], Claudette, SHIRT MARKER Patient has diabetic neuropathy Care Plan Patient has diabetic neuropathy No [place], Claudette, SHIRT MARKER Weekly blood pressure task Care Plan Weekly blood pressure task No DaciaRadhaClaudette, SHIRT MARKER Weekly blood pressure task Care Plan Weekly blood pressure task No [place] Claudette, SHIRT MARKER Weekly blood pressure task Care Plan Weekly blood pressure task No [place], Claudette, SHIRT MARKER Patient has chronic kidney disease Care Plan Patient has chronic kidney disease No [place] Claudette, SHIRT MARKER Patient has chronic kidney disease Care Plan Patient has chronic kidney disease No [place], Claudette, SHIRT MARKER Patient has chronic kidney disease Care Plan Patient has chronic kidney disease No [place] Claudette, SHIRT MARKER Patient has diabetic neuropathy Care Plan Patient has diabetic neuropathy No [place], Claudette, SHIRT MARKER Patient has diabetic neuropathy Care Plan Patient has diabetic neuropathy No [place], Claudette, SHIRT MARKER Patient has diabetic neuropathy Care Plan Patient has diabetic neuropathy No [place], Claudette, SHIRT MARKER Weekly blood pressure task Care Plan Weekly blood pressure task No [place], Waleska, MOCK UP BUILDER Weekly blood pressure task Care Plan Weekly blood pressure task No [place], Waleska, MOCK UP BUILDER Weekly blood pressure task Care Plan Weekly blood pressure task No [place], Waleska, MOCK UP BUILDER Patient has chronic kidney disease Care Plan Patient has chronic kidney disease No [place], Waleska, MOCK UP BUILDER Patient has chronic kidney disease Care Plan Patient has chronic kidney disease No [place], Waleska, MOCK UP BUILDER Patient has chronic kidney disease Care Plan Patient has chronic kidney disease No [place], Waleska, MOCK UP BUILDER Patient has diabetic neuropathy Care Plan Patient has diabetic neuropathy No [place], Waleska, MOCK UP BUILDER Patient has diabetic neuropathy Care Plan Patient has diabetic neuropathy No [place], Waleska, MOCK UP BUILDER Patient has diabetic neuropathy Care Plan Patient has diabetic neuropathy No [place], Waleska, MOCK UP BUILDER Weekly blood pressure task Care Plan Weekly blood pressure task No [place]ma[place] Means Weekly blood pressure task Care Plan Weekly blood pressure task No Clary O[place] Weekly blood pressure task Care Plan Weekly blood pressure task No Clary Omaira Patient has chronic kidney [...] documented as of this encounter Care Teams Disk Recoater Relationship Specialty Start Date End Date Waleska Goldberg FNP [address] [place] [id number] PCP - General Family Medicine 12/12/21 Gloria Flores Intake CounselorShip Unloader 03/13/23 documented as of this encounter
--- OUTSIDE RECORDS SUMMARY | 2025-03-07 19:20 | XMS_ITS | Encounter Summary ---
Author Organization [employer] Address [address] [place] [address] Care Team Providers Care Shirt Closer Name Role Phone Waleska Goldberg SUPERVISOR STAVE FINISHING Primary Care Provider [phone] Abhishek Murdock RN Unavailable [phone] Encounter Details Date Type Department Care Team (Late st Contact Info) Description 04/16/2024 Orders Only [facility] [address] [place], [place] [id number] ProviderAleisha MD Social History Tobacco Use Types [...] the past 12 months, has t he [employer], gas, oil or water company threatened to [...] documented as of this encounter Care Teams Shirt Closer Relationship Specialty Start Date End Date Waleska Goldberg FNP [address] [place] [id number] PCP - General Family Medicine 12/12/21 Abhishek Murdock, FARSHAD [address] [place] [id number] Registered Nurse Family Medicine 12/20/24 01/07/25 Glroia Flores Coal Or Ore ControllerSpecial Duty Nurse 03/13/23 documented as of this encounter
--- OUTSIDE RECORDS SUMMARY | 2025-03-07 19:20 | XMS_ITS | Encounter Summary ---
Author Organization [email or web address] Address [address] [place] [address] Care Team Providers Care Superintendent Oil Well Services Name Role Phone Waleska Goldberg Primary Care Provider [phone] Abhishek Murdock RN Unavailable [phone] Encounter Details Date Type Department Care Team (Latest Contact Info) Description 03/24/2019 Abstract [facility] CONVERSIONS Dental, Provider, DDS Social [...] on filedocumented in this encounter Care Teams Superintendent Oil Well Services Relationship Specialty Start Date End Date Waleska Goldberg FNP [address] [place] [address] PCP - General Family Medicine 12/12/21 Abhishek Murdock, RN [address] [place] [id number] Registered Nurse Family Medicine 12/20/24 01/07/25 Gloria Flores Aerospace EngineerSupervisor Mill 03/13/23 documented as of this encounter
--- OUTSIDE RECORDS SUMMARY | 2025-03-07 19:20 | XMS_ITS | Encounter Summary ---
Author Organization [employer] Address [address] [facility] [place] [address] Care Team Providers Care Requirements Engineer Name Role Phone Waleska Goldberg PSYCHIATRY ADULT PHYSICIAN Primary Care Provider [phone] Encounter Details Date Type Department Care Team (Late st Contact Info) Description 03/06/2025 Orders Only GENERIC EXTERNAL DATA DEPARTMENT Provider, [...] Care Plan Weekly blood pressure task No Claduette Pederson LPN Help patients manage their type 2 diabetes Care Plan Help patients manage their type 2 diabetes No Romana PedersoneSHERINEN Patient has chronic kidney disease Care Plan Patient has chronic kidney disease No Romana PedersoneSHERINEN Help patients manage their type 2 diabetes Care Plan Help patients manage their type 2 diabetes No Romana Pedersone DAY HABILITATION SUPERVISOR Patient has diabetic neuropathy Care Plan Patient has diabetic neuropathy No Romana Pedersone DAY HABILITATION SUPERVISOR Weekly blood pressure task Care Plan Weekly blood pressure task No Claudette Pederson LPN Weekly blood pressure task Care Plan Weekly blood pressure task No Romana Pedersone, DAY HABILITATION SUPERVISOR Patient has chronic kidney disease Care Plan Patient has chronic kidney disease No Romana Pedersone, DAY HABILITATION SUPERVISOR Patient has chronic kidney disease Care Plan Patient has chronic kidney disease No Romana Pedersone DAY HABILITATION SUPERVISOR Patient has diabetic neuropathy Care Plan Patient has diabetic neuropathy No Romana Pedersone, DAY HABILITATION SUPERVISOR Patient has diabetic neuropathy Care Plan Patient has diabetic neuropathy No Romana Pedersone, DAY HABILITATION SUPERVISOR Weekly blood pressure task Care Plan Weekly blood pressure task No Josep Kothari Weekly blood pressure task Care Plan Weekly blood pressure task No Josep Kothari Weekly blood pressure task Care Plan Weekly blood pressure task No Josep Kothari Patient has chronic kidney disease Care Plan Patient has chronic kidney disease No Josep Kothari Patient has chronic kidney disease Care Plan Patient has chronic kidney disease No Josep Kothari Patient has chronic kidney [...] Care Plan Weekly blood pressure task No [place], Claudette, DAY HABILITATION SUPERVISOR Weekly blood pressure task Care Plan Weekly blood pressure task No [place], Claudette, DAY HABILITATION SUPERVISOR Weekly blood pressure task Care Plan Weekly blood pressure task No [place], Claudette, DAY HABILITATION SUPERVISOR Patient has chronic kidney disease Care Plan Patient has chronic kidney disease No [place], Claudette, DAY HABILITATION SUPERVISOR Patient has chronic kidney disease Care Plan Patient has chronic kidney disease No [place], Claudette, DAY HABILITATION SUPERVISOR Patient has chronic kidney disease Care Plan Patient has chronic kidney disease No [place], Claudette, DAY HABILITATION SUPERVISOR Patient has diabetic neuropathy Care Plan Patient has diabetic neuropathy No [place], Claudette, DAY HABILITATION SUPERVISOR Patient has diabetic neuropathy Care Plan Patient has diabetic neuropathy No [place], Claudette, DAY HABILITATION SUPERVISOR Patient has diabetic neuropathy Care Plan Patient has diabetic neuropathy No [place], Claudette, DAY HABILITATION SUPERVISOR Weekly blood pressure task Care Plan Weekly blood pressure task No [place], Claudette, DAY HABILITATION SUPERVISOR Weekly blood pressure task Care Plan Weekly blood pressure task No [place], Claudette, DAY HABILITATION SUPERVISOR Weekly blood pressure task Care Plan Weekly blood pressure task No [place], Claudette, DAY HABILITATION SUPERVISOR Patient has chronic kidney disease Care Plan Patient has chronic kidney disease No [place], Claudette, DAY HABILITATION SUPERVISOR Patient has chronic kidney disease Care Plan Patient has chronic kidney disease No [place], Claudette, DAY HABILITATION SUPERVISOR Patient has chronic kidney disease Care Plan Patient has chronic kidney disease No [place], Claudette, DAY HABILITATION SUPERVISOR Patient has diabetic neuropathy Care Plan Patient has diabetic neuropathy No [place], Claudette, DAY HABILITATION SUPERVISOR Patient has diabetic neuropathy Care Plan Patient has diabetic neuropathy No [place], Claudette, DAY HABILITATION SUPERVISOR Patient has diabetic neuropathy Care Plan Patient has diabetic neuropathy No [place], Claudette, DAY HABILITATION SUPERVISOR Weekly blood pressure task Care Plan Weekly blood pressure task No Phalen, Waleska, PSYCHIATRY ADULT PHYSICIAN Weekly blood pressure task Care Plan Weekly blood pressure task No [place]alen, Waleska, PSYCHIATRY ADULT PHYSICIAN Weekly blood pressure task Care Plan Weekly blood pressure task No Phalen, Waleska, PSYCHIATRY ADULT PHYSICIAN Patient has chronic kidney disease Care Plan Patient has chronic kidney disease No [place]alen, Waleska, PSYCHIATRY ADULT PHYSICIAN Patient has chronic kidney disease Care Plan Patient has chronic kidney disease No [place]alen, Waleska, PSYCHIATRY ADULT PHYSICIAN Patient has chronic kidney disease Care Plan Patient has chronic kidney disease No [place]alen, Waleska, PSYCHIATRY ADULT PHYSICIAN Patient has diabetic neuropathy Care Plan Patient has diabetic neuropathy No Phalen, Waleska, PSYCHIATRY ADULT PHYSICIAN Patient has diabetic neuropathy Care Plan Patient has diabetic neuropathy No Phalen, Waleska, PSYCHIATRY ADULT PHYSICIAN Patient has diabetic neuropathy Care Plan Patient has diabetic neuropathy No Phalen, Waleska, PSYCHIATRY ADULT PHYSICIAN Weekly blood pressure task Care Plan Weekly [...] Means, Omaira documented as of this encounter Procedures Procedure Name Priority Date/Time Associated Diagnosis Comments CT ABDOMEN PELVIS WO CONTRAST Routine 03/06/2025 5:15 PM EST URINALYSIS, COMPLETE, WITH REFLEX TO CULTURE Routine 03/06/2025 4:22 PM EST documented in this encounter Results * CT Abdomen Pelvis w/o Contrast (03/06/2025 5:15 PM EST) Anatomical Region Laterality Modality Body, Pelvis, Abdomen Computed T omography 03/06/2025 5:15 PM EST Narrative 03/06/2025 5:17 PM EST [address] [address] [address] Scan Report Signed Patient: Barrett Goldman MR#: [id number] : 1965 Acct:[id number] Age/Sex: 59 / M ADM Date: 03/06/25 Loc: HO.ED Attending Dr: Ordering Physician: Celi Trent NP Date of Service: 03/06/25 Procedure(s): CT abdomen pelvis wo IV con Accession Number(s): [id number] cc: Waleska Goldberg PSYCHIATRY ADULT PHYSICIAN; Celi Trent NP Report Number: [id number]: Total DLP = 474.00 mGy-cm Reason for Exam: left flank pain CLINICAL HISTORY: left flank pain CT abdomen and pelvis without contrast Comparison: CT/REG/SR - CT ABDOMEN PELVIS W IV CON - 02/26/25 09:15 EST Findings: Bibasilar dependent subsegmental atelectasis. Gynecomastia. Left renal lower pole 0.6 cm, right renal lower pole 0.5 cm nonobstructing nephroliths. There is diffuse fecal material seen throughout the colon. Calcified coronary atherosclerotic disease. Aqti-pj-hkhhcqno calcified atherosclerotic disease of the abdominal aorta. The appendix is not grossly identified. The prostate is hypertrophic, 5.5 cm. The bones are intact. Prior sternotomy. Chronic wedge compression fracture of the T11 vertebral body with less than 20% vertebral body height loss. IMPRESSION: 1. Left renal lower pole 0.6 cm and right renal lower pole 0.5 cm nonobstructing nephroliths. 2. Constipation. 3. Prostate hypertrophy, measuring 5.5 cm. 4. Calcified coronary atherosclerotic disease. 5. Gynecomastia. This document has been electronically signed by: Dave Rosa MD on 03/06/2025 17:15:19 Dictated By: Dave Rosa MD Signed By: <Electronically signed by Dave Rosa MD in OV> 03/06/251715 DD/ 14 TD/TT: 03/06/251714 Supervisor Scenic Arts: Procedure Note Donotuseinterpreter, Image - 03/06/[address] [address] [address] Scan Report Signed Patient: Barrett Goldman [facility]#: [id number] : 1965Acct:[id number] Age/Sex: 59 / MADM Date: 03/06/25 Loc: HO.ED Attending Dr: Ordering Physician: Celi Trent NP Date of Service: 03/06/25 Procedure(s): CT abdomen pelvis wo IV con Accession Number(s): [id number] cc: Waleska GoldbergP; Celi Trent SENIOR GRANT WRITER Report Number: [id number]: Total DLP = 474.00 mGy-cm Reason for Exam: left flank pain CLINICAL HISTORY: left flank pain CT abdomen and pelvis without contrast Comparison: CT/REG/SR - CT ABDOMEN PELVIS W IV CON - 02/26/25 09:15 EST Findings: Bibasilar dependent subsegmental atelectasis. Gynecomastia. Left renal lower pole 0.6 cm, right renal lower pole 0.5 cm nonobstructing nephroliths. There is diffuse fecal material seen throughout the colon. Calcified coronary atherosclerotic disease. Ivyr-jz-mlnmucyy calcified atherosclerotic disease of the abdominal aorta. The appendix is not grossly identified. The prostate is hypertrophic, 5.5 cm. The bones are intact. Prior sternotomy. Chronic wedge compression fracture of the T11 vertebral body with less than 20% vertebral body height loss. IMPRESSION: 1. Left renal lower pole 0.6 cm and right renal lower pole 0.5 cm nonobstructing nephroliths. 2. Constipation. 3. Prostate hypertrophy, measuring 5.5 cm. 4. Calcified coronary atherosclerotic disease. 5. Gynecomastia. This document has been electronically signed by: Dave Rosa MD on 03/06/2025 17:15:19 Dictated By: Dave Rosa MD Signed By: <Electronically signed by Dave Rosa MD in OV> 03/06/251715 DD/ 14 TD/TT: 03/06/251714 Supervisor Scenic Arts: [facility] External Provider IMG CT PROCEDURES Final Result * (ABNORMAL) Urinalysis, Complete, with Reflex to Culture (03/06/2025 4:22 PM EST) Color Urine Yellow [facility] Appearance Urine Clear [facility] PH 6.0 5.0 - 9.0 [facility] Glucose Urine UA >=1000(A) Negative mg/dL [facility] Urine Blood Negative Negative [facility] Specific [place] - Urine >=1.030(H) 1.005 - 1.025 [facility] Urine Protein Negative Neg-Trace mg/dL [facility] Urine Ketones Negative Negative mg/dL [facility] Nitrite Urine Negative Negative [facility] Leukocyte Esterase Urine Negative Negative [facility] RBC Urine 0-2 0 - 2 /HPF [facility] Urine WBC 0-5 0 - 5 /HPF [facility] Urine Squamous Epithelial Cell 0-2 0 - 2 /HPF [facility] Urine Bacteria None Seen None Seen [facility] Hyaline Casts, Urine 0-2 0 - 2 /LPF [facility] 03/06/2025 4:22 PM EST 03/06/2025 4:24 PM EST Narrative [facility] - 03/06/2025 4:35 PM EST Urine, Clean Catch us Generic External Data Provider LAB URINE ORDERAB LES Final Result [facility] [address] [place] [address] [phone] documented in this encounter Visit Diagnoses [...] documented as of this encounter Care Teams Requirements Engineer Relationship Specialty Start Date End Date Waleska Goldberg FNP [address] [place] [id number] PCP - General Family Medicine 12/12/21 Gloria Flores [employer]aker [employer] Controller 03/13/23 documented as of this encounter
--- OUTSIDE RECORDS SUMMARY | 2025-03-07 19:20 | XMS_ITS | Clinical Summary ---
Author Organization [employer] Address [address] [facility] [address] [facility] [address] [place] [address] Care Team Providers Care Wardrobe Manager Name Role Phone Waleska Goldberg AREA DEVELOPMENT CONSULTANT Primary Care Provider [phone] Allergies No known active allergies Medications fluticasone [...] by mouth daily Active Continuous Blood Gluc Manager [facility] (FreeStyle [employer]) deviceIndications: Type 2 diabetes mellitus without complication, [...] 23 Active Blood Glucose Monitoring Suppl (FreeStyle [place] Lite) w/Device kitIndications:Typ e 2 diabetes mellitus [...] UNITS SUBCUTANEOUSLY ONCE DAILY 15 mL 4 5 4:14 PM EST 01/21/20 25 Active albuterol 108 (90 Base) MCG/ACT inhalerIndications :History of wheezing Inhale 2 puffs every 4 (four) hours if needed for wheezing or shortness of breath. 18 g 1 5 4:14 PM EST 03/04/20 25 026 Active acetaminophen (Acetaminophen 8 Hour) 650 MG ER tabletIndications: Arthritis of both hips Take 1 tablet (650 mg) by mouth every 8 (eight) hours if needed (pain or fever). Do not crush, chew, or split. 90 tablet 2 5 4:14 PM EST 03/04/20 25 026 Active Active Problems Patient [...] (03/04/2025 1:52 PM EST): - Followed by [facility] - evaluation September 2024 by MARYBEL [...] with routine healing Overview (05/23/2024): Following with [facility] - Dr. Monahan Assessment & Plan (08/17/2024 2:51 PM EDT): - Completed physical therapy - Referral to [facility] placed for further eval - Pain [...] ED) Hyperlipidemia 04/08/2024 Overview (10/28/2024): Following with [facility] Continue atorvastatin 80mg nightly Continue PCSK9 [...] knee 08/30/2023 Overview (04/16/2024): - Followed by [facility] - Plan for trial knee sleeve and activity modification. If no improvement with conservative measures, may consider injections - Consult Jan 2024: received steroid injection. Not good surgical candidate. Assessment & Plan (01/11/2024 5:18 PM EDT): Currently described as one of most painful sites of LLE. No red flag symptoms on exam today. Called and scheduled for appt with [facility] in 2 weeks. ED precautions sooner [...] to Neurosurgery on 08/12/23 - Referral to [facility] Pain Management sent 08/17/24 Assessment & Plan (10/28/2024 2:09 PM EDT): - Short course of Percocet to be used sparingly for severe pain. Reviewed med safety and SE. Assessment & Plan (08/17/2024 2:54 PM EDT): -Referral to [facility] sent 08/17/24 Assessment & Plan (08/30/2023 10:38 AM EDT): -Message sent to referrals team 08/30/23 to follow up on pending referral Assessment & Plan (07/31/2023 8:47 PM EDT): Cont symptomatic management Reviewed ED/urgent care precautions Healthcare maintenance 05/26/2023 Overview (04/16/2024): Dental: [facility] Dental Optometry: 10/07/22: SHELBY w/o diabetic retinopathy or diabetic macular edema. Colonoscopy: 05/30/22 at [facility] - Dr. Harrison. Plan to repeat in 1-2 years d/t poor prep. Referral to re-establish with GI sent 04/16/24. Assessment & Plan (08/30/2023 10:39 AM EDT): Declines COVID & PCV20 vaccines 08/29/23 Benign prostatic hyperplasia with urinary freque ncy 05/13/2022 Assessment & Plan (07/31/2023 7:22 PM EDT): Following with [facility] - Dr. Arboleda Continues with tamsulosin 0.4mg nightly Chronic pelvic pain in male 05/13/2022 Overview (08/17/2024): -Following with [facility] -Previous recommendation for pelvic floor physical therapy (pt not interested) -Continues with intermittent, chronic pelvic pain. Currently asymptomatic -02/14/23: US retroperitoneal ordered by AMERICO Lares. 1. Nephrocalcinosis. No hydronephrosis. 2. Enlarged prostate. Mild diffuse thickening and mucosal irregularity of the bladder wall. 07/13/2024: [facility]. Cystoscopy 06/07 open bladder neck. History [...] heart failure 04/17/2018 Overview (10/28/2024): -Followed by [facility] cardiology. Dr. Esteves/RETAIL CONSULTANT Edis -Hx of cardiac catheterization in [place] due to MA that led to coronary artery bypass surgery -Had further cardiac cath in [place] in 2018 that led to stenting of OM2 branch. -Pt to continue anticoagulation and nitroglycerin as needed through Cards Assessment & Plan (07/19/2024 4:43 PM EDT): - Given extensive cardiac history, transferred urgently to [facility] ED for further eval Coronary arteriosclerosis 04/17/2018 Diabetic neuropathy 04/17/2018 Essential hypertension 04/17/2018 Generalized ischemic myocardial dysfunction 07/2018 S/P CABG x 5 04/17/2018 Type 2 diabetes mellitus 04/17/2018 Overview (03/04/2025): -Previously followed by [facility] for management, although provider left and have not yet established with new provider -Reports BG readings usually ~120 fasting, and then around 100-200 throughout the day -Current regimen includes: -30 units nightly lantus -Novolog 6 units before meals -metformin 500mg BID -Jardiance 10mg daily -CGM approved, plan for initial teaching and device application 08/14/22 at [facility] Pharmacy -Podiatry: referral placed 06/05/22 -Optometry: last CEE September 2022 ([facility]) Lab Results Component Value Date [...] 03/02/2024 Rheumatoid arthritis involvi ng multiple sites ([facility]) 08/17/2022 08/17/2022 Overview (08/17/2022): Followed by [facility] Management Abdominal pain of unknown cause 05/13/2022 08/30/2023 UTI symptoms 05/13/2022 06/16/2022 Pain in joint of left shoulder 11/19/2018 06/16/2022 Inguinal lymphadenopathy 08/27/201808/2022 Trigger ring finger of right hand 06/08/2018 06/16/2022 Encounters Date Type Department Care Team Description 03/06/2025 Orders Only GENERIC EXTERNAL DATA DEPARTMENT Provider, Generic External Data 03/04/2025 10:00 AM EST Office Visit [facility] [address], [place] [phone] Waleska Goldberg, AREA DEVELOPMENT CONSULTANT Arthritis of both hips (Primary Dx); Type 2 diabetes mellitus without complication, with long-term current use of insulin ([facility]); Encounter for immunization; Pain of right hip; Colon cancer screening; Trigger finger of right thumb; History of wheezing; Nephrolithiasis; Abdominal pain, unspecified abdominal location 03/04/2025 8:45 AM EST Office Visit [facility] ADULT DENTAL [address] [place] [address] Omaira Means Encounter for dental examination (Primary Dx); Tooth missing; Dental caries; Bruxism; Dental plaque; Dental calculus 03/04/2025 Travel 03/03/[address] [address] Claudette Pederson LPN 03/02/[address] [address] Waleska Goldberg FNP 02/26/2025 Orders Only GENERIC EXTERNAL DATA DEPARTMENT Provider, Generic External Data 02/25/2025 Patient Outreach [address] [address] Waleska Goldberg FNP Pre-visit Planning (Pre visit planning unable to LVM ) 02/25/[address] [address] Waleska Goldberg FNP 02/07/2025 Patient Outreach [address] [address] Waleska Goldberg FNP Pre-visit Planning (SDOH screening completed on 08/09) 01/19/[address] [address] Waleska Goldberg FNP Type 2 diabetes mellitus treated with insulin (HCC) 01/07/2025 Patient Outreach [facility] [address], [place] [phone] Waleska Goldberg FNP Care Management (C3CM- F/U call) 12/22/2024 Patient Outreach [address] [address] Waleska Goldberg FNP Care Coordination ([facility]/Bob Woodsons[facility] f/u, program graduation ) 12/06/2024 Patient Outreach [address] [address] Waleska Goldberg FNP Care Coordination ([facility]/Bob Woodsons[facility] f/u call ) from Last 3 Months [...] 08/11/19 Diabetes: Urine Protein Screening 08/19/2025 08/19/2024, 08/19/2024, [...] Screening 03/04/2026 03/04/2025 Dental X-Ray: Bitewings 03/05/2026 03/04/20, 06/26/2023, 08/15/2022 Dental X-Ray: Full Mouth 06/26/2026 [...] their type 2 diabetes No Dacia, Claudette, RESEARCH STATISTICIAN Patient has chronic kidney disease Care Plan Patient has chronic kidney disease No GuilfordRadhaClaudette, RESEARCH STATISTICIAN Help patients manage their type 2 diabetes Care Plan Help patients manage their type 2 diabetes No Radha Pedersondie, RESEARCH STATISTICIAN Patient has diabetic neuropathy Care Plan Patient has diabetic neuropathy No Romana Pedersone, RESEARCH STATISTICIAN Weekly blood pressure task Care Plan Weekly blood pressure task No Dacia, Claudette, RESEARCH STATISTICIAN Weekly blood pressure task Care Plan Weekly blood pressure task No Dacia, Claudette, RESEARCH STATISTICIAN Patient has chronic kidney disease Care Plan Patient has chronic kidney disease No GuilfordRadhaClaudette, RESEARCH STATISTICIAN Patient has chronic kidney disease Care Plan Patient has chronic kidney disease No [place]il[place], Claudette, RESEARCH STATISTICIAN Patient has diabetic neuropathy Care Plan Patient has diabetic neuropathy No Radha Pedersondie, RESEARCH STATISTICIAN Patient has diabetic neuropathy Care Plan Patient has diabetic neuropathy No Romana Pedersone, RESEARCH STATISTICIAN Weekly blood pressure task Care Plan Weekly blood pressure task No KothariFredysha Weekly blood pressure task Care Plan Weekly blood pressure task No KothariFlacoha Weekly blood pressure task Care Plan Weekly blood pressure task No Kothari Jaysha Patient has chronic kidney disease Care Plan Patient has chronic kidney disease No Kothari Jaysha Patient has chronic kidney disease Care Plan Patient has chronic kidney disease No Kothari Jaysha Patient has chronic kidney disease Care Plan Patient has chronic kidney disease No Kothari, Jaysha Patient has diabetic neuropathy Care Plan Patient has diabetic neuropathy No Kothari Jaysha Patient has diabetic neuropathy Care Plan Patient has diabetic neuropathy No Kothari Jaysha Patient has diabetic neuropathy Care Plan Patient has diabetic neuropathy No Kothari Jaysha Weekly blood pressure task Care Plan Weekly blood pressure task No Radha Pedersondie, RESEARCH STATISTICIAN Weekly blood pressure task Care Plan Weekly blood pressure task No Radha Pedersondie, RESEARCH STATISTICIAN Weekly blood pressure task Care Plan Weekly blood pressure task No Radha Pedersondie, RESEARCH STATISTICIAN Patient has chronic kidney disease Care Plan Patient has chronic kidney disease No GuilfordRadhaClaudette, RESEARCH STATISTICIAN Patient has chronic kidney disease Care Plan Patient has chronic kidney disease No Dacia, Claudette, RESEARCH STATISTICIAN Patient has chronic kidney disease Care Plan Patient has chronic kidney disease No Radha Pedersondie, RESEARCH STATISTICIAN Patient has diabetic neuropathy Care Plan Patient has diabetic neuropathy No [place]il[place], Claudette, RESEARCH STATISTICIAN Patient has diabetic neuropathy Care Plan Patient has diabetic neuropathy No [place], Claudette, RESEARCH STATISTICIAN Patient has diabetic neuropathy Care Plan Patient has diabetic neuropathy No [place], Claudette, RESEARCH STATISTICIAN Weekly blood pressure task Care Plan Weekly blood pressure task No Dacia, Claudette, RESEARCH STATISTICIAN Weekly blood pressure task Care Plan Weekly blood pressure task No [place]il[place], Claudette, RESEARCH STATISTICIAN Weekly blood pressure task Care Plan Weekly blood pressure task No Dacia, Claudette, RESEARCH STATISTICIAN Patient has chronic kidney disease Care Plan Patient has chronic kidney disease No Dacia, Claudette, RESEARCH STATISTICIAN Patient has chronic kidney disease Care Plan Patient has chronic kidney disease No [place]il[place], Claudette, RESEARCH STATISTICIAN Patient has chronic kidney disease Care Plan Patient has chronic kidney disease No Dacia, Claudette, RESEARCH STATISTICIAN Patient has diabetic neuropathy Care Plan Patient has diabetic neuropathy No [place]il[place], Claudette, RESEARCH STATISTICIAN Patient has diabetic neuropathy Care Plan Patient has diabetic neuropathy No [place]il[place], Claudette, RESEARCH STATISTICIAN Patient has diabetic neuropathy Care Plan Patient has diabetic neuropathy No Dacia, Claudette, RESEARCH STATISTICIAN Weekly blood pressure task Care Plan Weekly blood pressure task No Phalen, Waleska, AREA DEVELOPMENT CONSULTANT Weekly blood pressure task Care Plan Weekly blood pressure task No Phalen, Waleska, AREA DEVELOPMENT CONSULTANT Weekly blood pressure task Care Plan Weekly blood pressure task No Phalen, Waleska, AREA DEVELOPMENT CONSULTANT Patient has chronic kidney disease Care Plan Patient has chronic kidney disease No Phalen, Waleska, AREA DEVELOPMENT CONSULTANT Patient has chronic kidney disease Care Plan Patient has chronic kidney disease No Phalen, Waleska, AREA DEVELOPMENT CONSULTANT Patient has chronic kidney disease Care Plan Patient has chronic kidney disease No Phalen, Waleska, AREA DEVELOPMENT CONSULTANT Patient has diabetic neuropathy Care Plan Patient has diabetic neuropathy No Phalen, Waleska, AREA DEVELOPMENT CONSULTANT Patient has diabetic neuropathy Care Plan Patient has diabetic neuropathy No Phalen, Waleska, AREA DEVELOPMENT CONSULTANT Patient has diabetic neuropathy Care Plan Patient has diabetic neuropathy No Phalen, Waleska, AREA DEVELOPMENT CONSULTANT Weekly blood pressure task Care [...] Patient has diabetic neuropathy No Means, Omaira Weekly blood pressure task Care Plan Weekly blood pressure task No Colon, Nayla Weekly blood pressure task Care Plan Weekly blood pressure task No Colon, Nayal Weekly blood pressure task Care Plan Weekly blood pressure task No Colon, Nayla Patient has chronic kidney disease Care Plan Patient has chronic kidney disease No Colon, Nayla Patient has chronic kidney disease Care Plan Patient has chronic kidney disease No Colon, Nayla Patient has chronic kidney disease Care Plan Patient has chronic kidney disease No Colon, Nayla Patient has diabetic neuropathy Care Plan Patient has diabetic neuropathy No Colon, Nayla Patient has diabetic neuropathy Care Plan Patient has diabetic neuropathy No Colon, Nayla Patient has diabetic neuropathy Care Plan Patient has diabetic neuropathy No Colon, Nayla Procedures Procedure Name Priority Date/Time Associated Diagnosis Comments CT ABDOMEN PELVIS WO CONTRAST Routine 03/06/2025 5:15 PM EST URINALYSIS, COMPLETE, WITH REFLEX TO CULTURE Routine 03/06/2025 4:22 PM EST POCT GLYCATED HEMOGLOBIN, TOTAL Routine 03/04/2025 10:28 [...] complication, with long-term current use of insulin ([facility]) INTRAORAL - COMPLETE SERIES OF RADIOGRAPHIC IMAGES Routine 06/26/2023 8:00 AM EDT HM COLONOSCOPY Routine 05/30/2022 9:04 PM EST from Last 3 Months or Most Recently Relevant to Health Maintenance Results * CT Abdomen Pelvis w/o Contrast (03/06/2025 5:15 PM EST) Anatomical Region Laterality Modality Body, Pelvis, Abdomen Computed T omography 03/06/2025 5:15 PM EST Narrative 03/06/2025 5:17 PM EST [address] [address] [address] Scan Report Signed Patient: Barrett Goldman MR#: [id number] : 1965 Acct:[id number] Age/Sex: 59 / M ADM Date: 03/06/25 Loc: HO.ED Attending Dr: Ordering Physician: Celi Trent NP Date of Service: 03/06/25 Procedure(s): CT abdomen pelvis wo IV con Accession Number(s): [id number] cc: Waleska Goldberg AREA DEVELOPMENT CONSULTANT; Celi Trent NP Report Number: [id number]: Total DLP = 474.00 mGy-cm Reason for [...] throughout the colon. Calcified coronary atherosclerotic disease. Simm-ae-bbyoilqx calcified atherosclerotic disease of the abdominal aorta. [...] in OV> 03/06/251715 DD/ 14 TD/TT: 03/06/251714 Senior Medical Writer: Procedure Note Donotuseinterpreter, Image - 03/06/[address] [place] [address] [address] Scan Report Signed Patient: Barrett Goldman [facility]#: [id number] : 1965Acct:[id number] Age/Sex: 59 / MADM Date: 03/06/25 Loc: HO.ED Attending Dr: Ordering Physician: Celi Trent NP Date of Service: 03/06/25 Procedure(s): CT abdomen pelvis wo IV con Accession Number(s): [id number] cc: Waleska Goldberg AREA DEVELOPMENT CONSULTANT; MileyCeli RETAIL CONSULTANT Report Number: [id number]: Total DLP = 474.00 mGy-cm Reason for [...] throughout the colon. Calcified coronary atherosclerotic disease. Dgnd-[id number] calcified atherosclerotic disease of the abdominal aorta. [...] in OV> 03/06/251715 DD/ 14 TD/TT: 03/06/251714 Senior Medical Writer: [facility] External Provider IMG CT PROCEDURES Final Result * (ABNORMAL) Urinalysis, Complete, with Reflex to Culture (03/06/2025 4:22 PM EST) Only the most recent of2 resultswithin the time period is included. Color Urine Yellow [facility] Appearance Urine Clear [facility] PH 6.0 5.0 - 9.0 [facility] Glucose Urine UA >=1000(A) Negative mg/dL [facility] Urine Blood Negative Negative [facility] Specific Filion - Urine >=1.030(H) 1.005 - 1.025 [facility] Urine Protein Negative Neg-Trace mg/dL [facility] Urine Ketones Negative Negative mg/dL [facility] Nitrite Urine Negative Negative [facility] Leukocyte Esterase Urine Negative Negative [facility] RBC Urine 0-2 0 - 2 /HPF [facility] Urine WBC 0-5 0 - 5 /HPF [facility] Urine Squamous Epithelial Cell 0-2 0 - 2 /HPF [facility] Urine Bacteria None Seen None Seen [facility] Hyaline Casts, Urine 0-2 0 - 2 /LPF [facility] 03/06/2025 4:22 PM EST 03/06/2025 4:24 PM EST Narrative [facility] - 03/06/2025 4:35 PM EST Urine, Clean Catch us Generic External Data Provider LAB URINE ORDERAB LES Final Result [facility] [address] [place] [phone] * (ABNORMAL) POCT Hgb A1c (03/04/2025 10:28 AM EST) Hemoglobin A1C 6.6(A) 4.0 - 5.7 % QC Media Lot # [id number] Lot# Expiration Date 5,027 Blood 03/04/2025 10:2 8 AM EST us Waleska Goldberg AREA DEVELOPMENT CONSULTANT POINT OF CARE TEST ENTER/EDIT ORDERABLES Final Result * POCT Glucose (03/04/2025 10:27 AM EST) Glucose Blood, POC 121 60 - 200 mg/dL [employer] Lot # [id number] Lot# Expiration Date [id number] Blood Capillary blood specimen / Unknown 03/04/2025 10:27 AM EST Waleska Goldberg AREA DEVELOPMENT CONSULTANT POINT OF CARE TEST ENTER/EDIT ORDERABLES Final Result * XR Chest 2 Views (02/26/2025 3:02 PM EST) Anatomical Region Laterality Modality Chest Radiographic Delores ging 02/26/2025 3:02 PM EST Narrative 02/26/2025 3:03 PM EST [address] [address] XRay Report Signed Patient: Barrett Goldman MR#: [id number] : 1965 Acct:[id number] Age/Sex: 59 / M ADM Date: 02/26/25 Loc: HO.ED Attending Dr: Ordering Physician: Narinder Elliott MD Date of Service: 02/26/25 Procedure(s): XR chest 2V Accession Number(s): [id number] cc: Narinder Elliott MD; Waleska Goldberg Reason [...] OV> 02/26/25 1503 DD/ 1502 TD/TT: 02/26/25 1502 Senior Medical Writer: Procedure Note Donotuseinterpreter, Image - 02/26/[address] [address] XRay Report Signed Patient: Barrett Goldman AMR#: [id number] : 1965Acct:[id number] Age/Sex: 59 / MADM Date: 02/26/25 Loc: HO.ED Attending Dr: Ordering Physician: Narinder Elliott MD Date of Service: 02/26/25 Procedure(s): XR chest 2V Accession Number(s): [id number] cc: Narinder Elliott MD; Waleska Goldberg Reason [...] OV> 02/26/25 1503 DD/ 1502 TD/TT: 02/26/25 1502 Senior Medical Writer: [facility] External Provider IMG XR PROCEDURES Edited Result - Final * CT Abdomen Pelvis w/ Contrast (02/26/2025 12:02 PM EST) Anatomical Region Laterality Modality Body, Pelvis, Abdomen Computed T omography 02/26/2025 12:0 2 PM EST Narrative 02/26/2025 12:04 PM EST [place] [address] CT Scan Report Signed Patient: Barrett Goldman MR#: MM [id number] : 1965 Acct:[id number] Age/Sex: 59 / M ADM Date: 02/26/25 Loc: HO.ED Attending Dr: Ordering Physician: Narinder Elliott MD Date of Service: 02/26/25 Procedure(s): CT abdomen pelvis w IV con Accession Number(s): [id number] cc: Narinder Elliott MD; Waleska Goldberg Report Number: [id number]: Total DLP = 476.00 mGy-cm Reason for [...] 02/26/25 1203 DD/ 1202 TD/TT: 02/26/25 1202 Senior Medical Writer: Procedure Note Donotuseinterpreter, Image - 02/26/[address] [place] [address] [address] Scan Report Signed Patient: Barrett Goldman AMR#: [id number] : 1965Acct:[id number] Age/Sex: 59 / MADM Date: 02/26/25 Loc: HO.ED Attending Dr: Ordering Physician: Narinder Elliott MD Date of Service: 02/26/25 Procedure(s): CT abdomen pelvis w IV con Accession Number(s): [id number] cc: Narinder Elliott MD; Waleska Goldberg [facility] Report Number: [id number]: Total DLP = 476.00 mGy-cm Reason for [...] 02/26/25 1203 DD/ 1202 TD/TT: 02/26/25 1202 Senior Medical Writer: [facility] External Provider IMG CT PROCEDURES Edited Result - Final * Influenza A B2 ID NOW (Vu) (02/26/2025 8:09 AM EST) IDNOW SERIAL# [id number] [facility] Influenza A Negative Negative [facility] Influenza B2 Negative Negative [facility] Influenza A B2 Note See Note [facility] Comment:The Vu ID NOW In [...] GENERAL ORDERABLES Final Result Performing Organization Address [facility] Co de Phone Number [facility] [address] [place] [phone] * Strep A Nucleic Acid (02/26/2025 8:09 AM EST) IDNOW SERIAL# [id number] [facility] Strep A Nucleic Acid Negative Negative [facility] Comment:All test results mus t be correlated with clinical findings.This test has not been evaluated for monitoring treatment ofinfection.Additional follow-up testing using the culture method isrequired if the result is negative and clinical symptomspersist, or in the event of an acute rheumatic feveroutbreak. 02/26/2025 8:09 AM EST 02/26/2025 8:19 AM EST [employer] External Data Provider LAB MICROBIOLOGY - GENERAL ORDERABLES Final Result Performing Organization Address [facility] Co de Phone Number [facility] [address] [place] [phone] * (ABNORMAL) CBC auto differential (02/26/2025 7:53 AM EST) White Blood Count 4.4(L) 4.8 - 10.8 X10*3/uL [facility] Red Blood Count 4.83 4.60 - 5.80 X10*6/uL [facility] Hemoglobin 15.3 14.0 - 18.0 g/dl [facility] Hematocrit 44.5 42.0 - 52.0 % [facility] Mean Corpuscular Volume 92.1 80.0 - 98.0 fL [facility] Mean Corpuscular Hemoglobin 31.7 27.0 - 33.0 pg [facility] Mean Corpuscular HGB Conc 34.4 31.0 - 36.0 g/dl [facility] Red Cell Distribution Width 12.8 11.0 - 16.0 % [facility] Platelet Count 171 160 - 400 X10*3/uL [facility] Mean Platelet Volume 10.2 9.4 - 12.4 fL [facility] Neutrophils Percent Auto 57.4 45 - 73 % [facility] Imm Gran Pct Auto 0.2 0.0 - 0.4 % [facility] Lymphocytes Percent Auto 29.3 20 - 40 % [facility] Monocytes Percent Auto 8.9 2 - 11 % [facility] Eosinophils Percent Auto 3.7 0 - 4 % [facility] Basophils Percent Auto 0.5 0 - 2 % [facility] NRBC Pct Auto 0.0 0.0 - 0.2 /100WBC [facility] Neutrophils Absolute Auto 2.5 2.0 - 8.3 x10*3/uL [facility] Imm Gran Abs Auto 0.01 0.00 - 0.03 X10*3/uL [facility] Lymphocytes Absolute Auto 1.3 1.2 - 4.9 X10*3/uL [facility] Monocytes Absolute Auto 0.4 0.1 - 1.2 X10*3/uL [facility] Eosinophils Absolute Auto 0.2 0.0 - 0.4 X10*3/uL [facility] Basophils Absolute Auto 0.0 0.0 - 0.2 X10*3/uL [facility] NRBC Abs Auto 0.000 0.0 - 0.012 X10*3/uL [facility] 02/26/2025 7:53 AM EST 02/26/2025 8:02 AM EST Generic External Data Provider LAB BLOOD ORDERAB LES Final Result Performing Organization Address [facility] Co de Phone Number [facility] [address] [place] [address] [phone] * (ABNORMAL) Lipid Panel, Standard (08/19/2024 8:35 AM EDT) Triglycerides 87 <150 mg/dL [facility] Comment:Desirable Triglyceri de: less than 150 mg/dLBorderline High Triglyceride 150-199 mg/dLHigh Triglyceride: 200-499 mg/dLVery High Triglyceride: greater than or equal to 5OO mg/dL Cholesterol 137 <200 mg/dL [facility] Comment:Desirable Cholestero l: less than 200 mg/dLBorderline High Cholesterol: 200-239 mg/dLHigh Cholesterol: greater than 239 mg/dL LDL Cholesterol Calculated 86 <100 mg/dL [facility] Comment:Desirable LDL: less than 100 mg/dLNear Optimal/Above Optimal LDL: 110- 129 mg/dLBorderline High LDL: 130-159 mg/dLHigh LDL: 160-189 mg/dLVery High LDL: greater than or equal to 190 mg/dL HDL Cholesterol 34(L) >40 mg/dL [facility] Comment:Desirable HDL: great er than 40 mg/dL Note: This HDL assay may give artificially low results in patients with liver disease. 08/19/2024 8:35 AM EDT 08/19/2024 8:35 AM EDT us Generic External Data Provider LAB BLOOD ORDERAB LES Final Result Performing Organization Address City/[facility]/ZIP Co de Phone Number [facility] [address] [place] [address] [phone] * Albumin, Random Urine W/Creatinine (08/19/2024 8:29 AM EDT) Creatinine, Urine 218.70 mg/dL [facility] Microalbumin Urine 12.0 mg/L [facility] Microalbum Creatinine Ratio Ur 5.4 <30 ug/mg cr [facility] Comment:Albumin/Creatinine R atio Reference Ranges: Normal: < 30 ug/mg creatinine Microalbuminuria: 30 - 300 ug/mg creatinineClinical Albuminuria: > 300 ug/mg creatinine Urine 08/19/2024 8:29 AM EDT 08/19/2024 8:50 AM EDT us Waleska Goldberg AREA DEVELOPMENT CONSULTANT LAB URINE ORDERABLES Final Res ult [facility] [address] [place] [address] [phone] * Hm Colonoscopy (05/30/2022 9:04 PM EST) us Historical Provider MD HEALTH MAINTENANCE Final Result from Last 3 [...] diabetic neuropathy 03/04/2025 Weekly blood pressure task 03/07/2025 Weekly blood pressure task 03/07/2025 Weekly blood pressure task 03/07/2025 Patient has chronic kidney disease 03/07/2025 Patient has chronic kidney disease 03/07/2025 Patient has chronic kidney disease 03/07/2025 Patient has diabetic neuropathy 03/07/2025 Patient has diabetic neuropathy 03/07/2025 Patient has diabetic neuropathy 03/07/2025 Insurance [facility] C3 DENTAL-[facility] MEDICAID STAND ADULT Care Teams Wardrobe Manager Relationship Specialty Start Date End Date Waleska Goldberg FNP [address] [place] [address] PCP - General Family Medicine 12/12/21 Gloria Flores Manager InfusionSheep Sticker 03/13/23
--- OUTSIDE RECORDS SUMMARY | 2025-03-07 19:20 | XMS_ITS | Encounter Summary ---
Author Organization [employer] Address [address] [facility] 7t [place] [address] Care Team Providers Care Strip Cutter Name Role Phone Waleska Goldberg Primary Care Provider [phone] Abhishek Murdock RN Unavailable [phone] Reason for Visit * Reason Comments Med Refill Encounter Details Date Type Department Care Team ([facility] st Contact Info) Description 09/28/2023 Refill [facility] MEDICINE [address] [place] [address] Waleska Goldberg FNP [address] [place] [address] Insomnia, unspecified type Social History Tobacco Use [...] documented as of this encounter Care Teams Strip Cutter Relationship Specialty Start Date End Date Waleska Goldberg FNP [address] [place] [address] PCP - General Family Medicine 12/12/21 Abhishek Murdock RN [address] [place] [address] Registered Nurse Family Medicine 12/20/24 01/07/25 Gloria Flores Library Circulation TechnicianLock Maintenance Supervisor 03/13/23 documented as of this encounter
--- OUTSIDE RECORDS SUMMARY | 2025-03-07 19:20 | XMS_ITS | Encounter Summary ---
Author Organization [employer] Address [address] [facility] 7t [place] [address] Care Team Providers Care Sports Marketer Name Role Phone Waleska Goldberg Primary Care Provider [phone] Abhishek Murdock RN Unavailable [phone] Reason for Visit * Reason Onset Date Comments Med Refill 06/01/2024 Encounter Details Date Type Department Care Team (Late st Contact Info) Description 06/01/2024 Refill [facility] MEDICINE [address] [place] [address] Waleska Goldberg FNP [address] [place] [address] Fracture of left patella with routine healing [...] up for visit. [facility] Thank you! * Telephone Encounter - Dee Nuñez - 06/01/2024 3:53 PM EST TC from pt requesting medication refill. Medications needing refill : oxyCODONE-acetaminophen (Percocet) 10-325 MG tablet To be sent to: [facility]/pharmacy #[id number] [facility] [place] - [address] [place] [address] documented in this encounter Plan of Treatment Not on file documented as of this encounter Visit Diagnoses Diagnosis Fracture of left patella with routine healing documented in this encounter Additional Health Concerns Assessment Noted Time PHQ-9 Depression Total Score: 6 07/30/19 24 10:53 AM EDT documented as of this encounter Care Teams Sports Marketer Relationship Specialty Start Date End Date Waleska Goldberg FNP [address] [place] [address] PCP - General Family Medicine 12/12/21 Abhishek Murdock, FARSHAD [address] [place] [address] Registered Nurse Family Medicine 12/20/24 01/07/25 Gloria Flores Rail ManagerUi Programmer 03/13/23 documented as of this encounter
--- OUTSIDE RECORDS SUMMARY | 2025-03-07 19:20 | XMS_ITS | Encounter Summary ---
Author Organization [employer] Address [address] [facility] 7t [place] [address] Care Team Providers Care Centrifuge Operator Name Role Phone Waleska Goldberg Primary Care Provider [phone] Abhishek Murdock RN Unavailable [phone] Reason for Visit * Reason Onset Date Comments Referral 05/28/2022 Encounter Details Date Type Department Care Team ([facility] st Contact Info) Description 05/28/2022 Telephone [facility] MEDICINE [address] [place], [place] [phone] Waleska Goldberg FNP [address] [place], [place] [phone] Referral Social History Tobacco Use Types Packs/Day [...] on filedocumented in this encounter Care Teams Centrifuge Operator Relationship Specialty Start Date End Date Waleska Goldberg FNP [address] [place] [address] PCP - General Family Medicine 12/12/21 Abhishek Murdock RN [address] [place] [address] Registered Nurse Family Medicine 12/20/24 01/07/25 Gloria Flores Biomass FacilitatorAutomotive Quality Manager 03/13/23 documented as of this encounter
--- OUTSIDE RECORDS SUMMARY | 2025-03-07 19:20 | XMS_ITS | Encounter Summary ---
Author Organization [employer] Address [address] [facility] 7t [place] [address] Care Team Providers Care Tire Balancer Name Role Phone Waleska Goldberg Primary Care Provider [phone] Abhishek Murdock RN Unavailable [phone] Reason for Referral * Consultation (Routine) - Closed Specialty Diagnoses / Procedures Referred By Shayne rodriguez Referred To Contact Physical Therapy Diagnoses Fracture of left patella with routine healing Waleska Goldberg FNP [address] [place] [address] Phone: tel: fax: [facility] [address] [place] [address] Phone: tel: fax: Referral ID Status Reason Start Date Expiration Date V isits Requested Visits Authorized [id number] Closed Specialty Services Required 08/27/2024 08/27/2025 1 1 Encounter Details Date Type Department Care Team ([facility] Contact Info) Description 08/25/2024 Telephone [facility] MEDICINE [address] [place] [address] Waleska Goldberg FNP [address] [place], [place] [phone] Social History Tobacco Use Types Packs/Day Years [...] - 08/25/2024 11:45 AM EDT Tc from [facility] with [facility] requesting existing referral to be sent with updated date information for Physical Therapy - Diagnosis: Fracture of left patella with routine healing (S82.002D) [facility] [address] [place] [address] documented in this encounter Plan of Treatment [...] documented as of this encounter Care Teams Tire Balancer Relationship Specialty Start Date End Date Waleska Goldberg FNP [address] [place] [address] PCP - General Family Medicine 12/12/21 Abhishek Murdock, FARSHAD [address] [place] [address] Registered Nurse Family Medicine 12/20/24 01/07/25 Gloria Flores Music ArrangerHot Wort Settler 03/13/23 documented as of this encounter
--- OUTSIDE RECORDS SUMMARY | 2025-03-07 19:20 | XMS_ITS | Encounter Summary ---
Author Organization [employer] Address [address] [facility] 7t [place] [address] Care Team Providers Care Peer Financial Counselor Name Role Phone Waleska Goldberg Primary Care Provider [phone] Abhishek Murdock RN Unavailable Encounter Details Date Type Department Care Team (Latest Contact Info) Description 07/10/2020 Abstract [facility] CONVERSIONS Dental, Provider, DDS Social History [...] on filedocumented in this encounter Care Teams Peer Financial Counselor Relationship Specialty Start Date End Date Waleska Goldberg FNP [address] [place] [address] PCP - General Family Medicine 12/12/21 Abhishek Murdock, RN [address] [place] [address] Registered Nurse Family Medicine 12/20/24 01/07/25 Gloria Flores Clinical Dietetic TechnicianManager Metal 03/13/23 documented as of this encounter
--- OUTSIDE RECORDS SUMMARY | 2025-03-07 19:20 | XMS_ITS | Encounter Summary ---
Author Organization [employer] Address [address] [facility] 7t [place] [address] Care Team Providers Care Coremaker Name Role Phone Waleska Goldberg Primary Care Provider [phone] Abhishek Murdock RN Unavailable [phone] Reason for Visit * Reason Onset Date Comments Hospital Follow-up 05/04/2024 Encounter Details Date Type Department Care Team ([facility] st Contact Info) Description 05/04/2024 Telephone [facility] MEDICINE [address] [place] [address] Waleska Goldberg FNP [address] [place] [address] Hospital Follow-up Social History Tobacco Use Types [...] from pt requesting a HDF appt. Hospital: [facility] Date of admission: 04/29/2024 Discharge date: 05/01/2024 [...] documented as of this encounter Care Teams Coremaker Relationship Specialty Start Date End Date Waleska Goldberg FNP [address] [place] [address] PCP - General Family Medicine 12/12/21 Abhishek Murdock, RN [address] [place] [address] Registered Nurse Family Medicine 12/20/24 01/07/25 Lif[facility]oint Healthral Drupal DeveloperFly Rail Operator 03/13/23 documented as of this encounter
--- OUTSIDE RECORDS SUMMARY | 2025-03-07 19:20 | XMS_ITS | Encounter Summary ---
Author Organization [employer] Address [address] [facility] [address] [place] [address] Care Team Providers Care Table Attendant Name Role Phone Waleska Goldberg CORRECTIONS CASEWORKER Primary Care Provider [phone] Abhishek Murdock RN Unavailable [phone] Reason for Visit * Reason Onset Date Comments Referral 06/30/2024 Encounter Details Date Type Department Care Team ([facility] Contact Info) Description 06/30/2024 Telephone [facility] MED [facility] PEDS [address] [place], [place] [phone] Waleska Goldberg FNP [address] [place] [address] Referral Social History Tobacco Use Types Packs/Day [...] PM EDT Insurance authorization for 20 visits #[id number] faxed to Jan Shen @ [phone]. * Telephone Encounter - Yvonne Palomino - [...] documented as of this encounter Care Teams Table Attendant Relationship Specialty Start Date End Date Waleska Goldberg FNP [address] [place] [address] PCP - General Family Medicine 12/12/21 Abhishek Murdock RN [address] [place] [address] Registered Nurse Family Medicine 12/20/24 01/07/25 Gloria Flores Plating Tank OperatorChild Care Centre Director 03/13/23 documented as of this encounter
--- OUTSIDE RECORDS SUMMARY | 2025-03-07 19:20 | XMS_ITS | Encounter Summary ---
Author Organization [employer] Address [address] [facility] 7t [place] [address] Care Team Providers Care E Business Project Manager Name Role Phone Waleska Goldberg HAND II TUBE BENDER Primary Care Provider [phone] Abhishek Murdock RN Unavailable [phone] Reason for Visit * Reason Comments Med Refill Encounter Details Date Type Department Care Team ([facility] st Contact Info) Description 06/07/2024 Refill [facility] [address] [place], [place] [phone] Waleska Goldberg FNP [address] [place] [address] Fracture of left patella with routine healing [...] pt regarding message below via BLS ID# [id number]. Pt stated he has an appt scheduled [...] refill of Percocet. Called via BLS ID# [id number]. Also called pt on 06/01/24 advisingof the message from PCP on 06/01/24: Please let him know that short course of opioid was sent in with plan for no refills. He should hopefully be feeling better, but if not, will need to follow up for visit. Walk in [place] extended open tonight PRN. Thank you! Pt then verbalized understanding. Pt called again for a refill today. Stated he does not want to goto walk in [place], asked for a f/u appt with PCP [...] documented as of this encounter Care Teams E Business Project Manager Relationship Specialty Start Date End Date Waleska Goldberg FNP [address] [place] [address] PCP - General Family Medicine 12/12/21 Abhishek Murdock RN [address] [place] [address] Registered Nurse Family Medicine 12/20/24 01/07/25 Gloria Flores Credit Risk ModelerAssociate Sales 03/13/23 documented as of this encounter
--- OUTSIDE RECORDS SUMMARY | 2025-03-07 19:20 | XMS_ITS | Encounter Summary ---
Author Organization [employer] Address [address] [facility] 7t [place] [address] Care Team Providers Care Road Advisor Name Role Phone Waleska Goldberg Primary Care Provider [phone] Abhishek Murdock RN Unavailable [phone] Reason for Visit * Reason Onset Date Comments Med Refill 05/06/2024 Encounter Details Date Type Department Care Team ([facility] st Contact Info) Description 05/06/2024 Telephone [facility] MEDICINE [address] [place] [address] Waleska Goldberg FNP [address] [place] [address] Med Refill Social History Tobacco Use Types [...] 10-325 MG tablet To be sent to: [facility] [place], [place] - [address] [place] [address] documented in this encounter Plan of Treatment Not on file documented as of this encounter Visit Diagnoses Not on filedocumented in this encounter Additional Health Concerns Assessment Noted Time PHQ-9 Depression Total Score: 6 07/30/19 24 10:53 AM EDT documented as of this encounter Care Teams Road Advisor Relationship Specialty Start Date End Date Waleska Goldberg FNP [address] [place] [address] PCP - General Family Medicine 12/12/21 Abhishek Murdock, FARSHAD [address] [place] [address] Registered Nurse Family Medicine 12/20/24 01/07/25 Gloria Flores Third MillerLandfill Gas Collection System Operator 03/13/23 documented as of this encounter
== END 2025-03-07 14:24 | disposition home or self-care (01) ==
LOC: HO.XRAY 14:23
PROVIDERS: PCP Registered Nurse; Visit Provider Registered Nurse
DX: G89.29 Other chronic pain (principal); M25.551 Pain in right hip; M54.50 Low back pain, unspecified
CPT/HCPCS: 72100; 73502

== ENCOUNTER → 2025-03-07 14:29 | Outpatient (BNV) | payer MEDICAID, SELFPAY | PROVIDERS: PCP Registered Nurse; Visit Provider Radiology Diagnostic Ultrasound | DX: M16.11 Unilateral primary osteoarthritis, right hip (principal); M47.816 Spondylosis without myelopathy or radiculopathy, lumbar region | CPT/HCPCS: 72100; 73502 ==

== ENCOUNTER 2025-03-23 10:01 | Emergency (ER) | payer MEDICAID, SELFPAY ==
--- NOTE | ~2025-03-23 | XR_ITS ---
EXAMINATION: XR CHEST CLINICAL INFORMATION: SOB COMPARISON: 02/26/2025 TECHNIQUE: 2 views of the chest were obtained. FINDINGS: Mediastinal wires are intact. 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 The heart size is within normal limits. Lungs are clear and well expanded. There is no sign of pleural effusion. The heart size is within normal limits. No bony abnormality is evident. XR/XR chest 2V IMPRESSION: No acute disease. Changes related to CABG. Electronically signed by: Leno King MD 03/23/2025 10:40 AM MARY JANE
--- NOTE | 2025-03-23 10:02 | ED.GENADULT ---
HPI - General Adult General Chief complaint: Dyspnea Stated complaint: diff breathing Time Seen by Provider: 03/23/25 14:31 History of Present Illness ED Provider: nohemi HPI narrative: 60 M with 1-2 d of dry cough. No phlegm, no hemoptysis denies chest pain. He has never tobacco smoker he denies any lower extremity edema abdominal pain nausea vomiting. No sore throat or difficulty swallowing. He tells me he has an albuterol pump at home. Related Data Home Medications ?Medication ?Instructions ?Recorded ?Confirmed atorvastatin 80 mg tablet 80 mg PO DAILY 04/11/20 09/30/24 carvedilol 3.125 mg tablet 3.125 mg PO BID 04/11/20 09/30/24 clopidogrel 75 mg tablet 75 mg PO DAILY 04/11/20 09/30/24 ezetimibe 10 mg tablet (Zetia) 10 mg PO DAILY 04/11/20 09/30/24 gabapentin 800 mg tablet 800 mg PO BID 04/11/20 09/30/24 isosorbide mononitrate 60 mg 60 mg PO DAILY 04/11/20 09/30/24 tablet,extended release 24 hr lisinopril 2.5 mg tablet 2.5 mg PO DAILY 04/11/20 09/30/24 melatonin 5 mg capsule See Rx Instructions PO ONCE 04/11/20 09/30/24 ammonium lactate 12 % topical cream 1 appl topical BID 07/11/21 09/30/24 fluticasone propionate 50 1 - 2 spray intranasal DAILY PRN 01/17/22 09/30/24 mcg/actuation nasal congestion spray,suspension naproxen 500 mg tablet 500 mg PO moderate pain 06/13/22 09/30/24 tizanidine 4 mg tablet 4 mg PO TID 06/13/22 09/30/24 aspirin 81 mg chewable tablet 81 mg PO QAM 07/25/22 09/30/24 pregabalin 100 mg capsule 100 mg PO ONCE 07/25/22 09/30/24 Previous Rx's ?Medication ?Instructions ?Recorded magnesium citrate 300 ml PO DAILY PRN constipation 02/28/20 #296 mL blood sugar diagnostic (FreeStyle 1 strip miscellaneous QID PRN for 09/19/20 Lite Strips) diabetes mellitus #150 strips blood-glucose meter (FreeStyle 1 ea miscellaneous DIRECTED #1 09/26/20 Langdon Lite kit) kit lancets 33 gauge (TRUEplus Lancets) 1 gauge miscellaneous QID for 10/12/20 diabetes mellitus #100 ea flash glucose scanning reader #1 ea 01/01/21 (FreeStyle Alfredo 2 Eastham) flash glucose sensor (FreeStyle #2 ea 01/01/21 Alfredo 2 Sensor kit) dicyclomine 20 mg tablet 20 mg PO QID PRN abdominal pain 02/06/21 #20 tabs insulin glargine 100 unit/mL (3 30 unit (0.3 mL) subcut DAILY #15 08/06/21 mL) subcutaneous pen (Lantus mL Solostar U-100 Insulin) metformin 500 mg tablet 1,000 mg (2 x 500 mg) PO BID 30 12/12/21 days #120 tabs pen needle, diabetic 32 gauge x See Rx Instructions .Route 01/31/22 (Pentips Pen Needle) .COMPLEX #200 ea diclofenac sodium 1 % topical gel 2 g topical QID 30 days #100 grams 02/27/22 insulin aspart U-100 100 unit/mL See Rx Instructions subcut QID #30 03/27/22 (3 mL) subcutaneous pen (Novolog mL FlexPen U-100 Insulin aspart) hydrocortisone 2.5 % topical cream 1 appl ND BID PRN hemorrhoids #30 06/13/22 with perineal applicator grams (Proctozone-HC) polyethylene glycol 3350 17 17 g PO DAILY 30 days #510 grams 09/16/22 gram/dose oral powder (Miralax) lidocaine 5 % topical patch 1 patch topical DAILY #30 ea 06/10/23 acetaminophen 325 mg capsule 325 mg PO Q4H PRN pain #30 caps 07/14/23 (Tylenol) lidocaine 5 % topical patch 1 patch topical DAILY PRN pain #15 07/14/23 ea potassium citrate 10 mEq (1,080 20 meq (2 x 10 mEq (1,080 mg)) PO 12/24/23 mg) tablet,extended release BID 90 days #360 tabs acetaminophen 500 mg tablet 500 mg PO Q8H PRN pain #30 tabs 03/04/24 (Tylenol Extra Strength) ibuprofen 600 mg tablet 600 mg PO Q6H PRN fever or pain 03/20/24 #30 tabs calcium polycarbophil 625 mg 625 mg PO TID #270 tabs 04/12/24 tablet (Fiber-Lax) tadalafil 10 mg tablet 10 mg PO DAILY bladder stability 07/13/24 90 days #90 tabs bisacodyl 5 mg tablet,delayed 5 mg PO ONCE 1 day #3 tabs 07/28/24 release polyethylene glycol 3350 17 238 g PO ONCE #238 grams 07/28/24 gram/dose oral powder (Miralax) doxazosin 4 mg tablet 8 mg (2 x 4 mg) PO BEDTIME 90 days 08/09/24 #180 tabs ranolazine 500 mg tablet,extended 500 mg PO BID #180 tabs 08/16/24 release,12 hr methocarbamol 750 mg tablet 1,500 mg (2 x 750 mg) PO Q8H #20 08/19/24 tabs evolocumab 140 mg/mL subcutaneous 140 mg subcut Q2W #2 mL 08/20/24 pen injector (Shai Santamaria) nitroglycerin 0.4 mg sublingual 0.4 mg sublingual Q5M PRN angina 09/30/24 tablet pectoris #25 tabs docusate sodium 100 mg capsule 200 mg (2 x 100 mg) PO BEDTIME #60 11/09/24 (Stool Softener) caps finasteride 5 mg tablet 5 mg PO DAILY 90 days #90 tabs 01/04/25 furosemide 20 mg tablet 20 mg PO DAILY #90 tabs 01/04/25 albuterol sulfate 2.5 mg/3 mL 2.5 mg (3 mL) inhalation QID PRN 02/26/25 (0.083 %) solution for nebulization bronchospasm #75 mL amoxicillin 500 mg capsule 500 mg PO BID #10 caps 02/26/25 oxycodone 5 mg tablet 5 mg PO Q6H PRN pain #15 tabs 02/26/25 polyethylene glycol 3350 17 17 g PO DAILY #119 grams 03/06/25 gram/dose oral powder (Miralax) sennosides 8.6 mg capsule (senna) 8.6 mg PO BID PRN constipation #20 03/06/25 caps albuterol sulfate 90 mcg/actuation 2 puff inhalation Q6H PRN 03/23/25 aerosol inhaler shortness of breath or wheezing #8.5 grams prednisone 20 mg tablet 60 mg (3 x 20 mg) PO DAILY 1 day 03/23/25 #3 tabs Allergies Allergy/AdvReac Type Severity Reaction Status Date / Time No Known Allergies (No Known Allergy Verified 03/23/25 10:06 Allergies*) [facility] Past Medical History Medical History History of colon polyps Ischemic cardiomyopathy Atherosclerotic cardiovascular disease History of pancreatitis Hepatitis B Hepatitis C Chronic HFrEF (heart failure with reduced ejection fraction) Cardiomyopathy Type 2 diabetes mellitus with hyperglycemia, with long-term current use of insulin Type 2 diabetes mellitus with diabetic polyneuropathy Hyperlipidemia LDL goal <70 Essential hypertension Myocardial infarction Surgical History Hx of knee surgery Hx of colonoscopy History of appendectomy Hx of heart artery stent H/O coronary artery bypass surgery H/O cardiac catheterization Family History Family History Mother Diabetes Social History Social History Household Members: Spouse Alcohol intake: never Patient Tobacco Use Status: Never used Tobacco Advance Directives: No Advance Directives Information Provided: No Do you have a plan to hurt others: No Plan Current occupational status: unemployed Physical Exam ED Exam Exam: EXAM: Gen: Alert, awake, well appearing, well hydrated. Head: Atraumatic Eyes: Anicteric, Normal conjunctiva. ENT: Moist mucosa, no pallor. ? Neck: Supple. Skin: ?No observable rash or bruising on exposed or examined skin Respiratory: Breathing comfortably, No distress.Clear to auscultation bilaterally, symmetric chest expansion, No wheeze, rales, ronchi. Cardiovascular: Regular rate and rhythm. No murmurs or rub. Well perfused periphery, warm extremities. No edema. ? Abdominal: No focal tenderness. Soft, no objective distension. No palpable masses or obvious organomegaly. ?No guarding, no rebound tenderness or other peritoneal findings. : No flank tenderness. Neuro: Alert. Gross movement of all extremities intact. ? Psych: Calm. Cooperative. MSK: No grossly visible deformity. Vital signs: See flowsheet Vital Signs: Vital Signs - 24 hr 03/23/25 10:03 03/23/25 14:52 Temperature 97.8 F 97.8 F Pulse Rate 87 78 Respiratory Rate 24 H 18 Blood Pressure 137/76 122/73 Pulse Oximetry 99 99 Oxygen Delivery Method Room Air Room Air BMI result Body Mass Index 24.2 Course Course Course Narrative: Rapid medical examination performed in triage by Torie Pozo PA-C: Patient is a 60 year old assigned male at presenting to the emergency department with shortness of breath. Patient states that he is feeling short of breath. Detailed physical exam and review of systems are deferred to the business solution analyst. EKG, labs, imaging, swabs ordered. Patient placed back in the waiting room pending room availability and results. Medical Decision Making Medical Decision Making MDM Narrative: Medical Decision Makin M with dry cough. He has clear lungs and although he is having intermittent subjective coughing fits these resolve a and are self-limited. He has not been hypoxic at all and does not appear in any distress. He is throat is clear Chest x-ray, viral testing, lab work all reassuring. Possibly viral or allergic bronchospastic cough without hypoxia or indication for antibiotics. Think it is reasonable to give a single dose of oral steroid and prescribe albuterol MDI inhaler for symptomatic relief Preliminary Favored Differential Diagnosis: Pneumonia, bronchitis, allergic reaction among additional considered etiologies Testing Interpreted Independently: sinus, rate 78, RBBB no acute ischemia Radiology or Lab testing Results Reviewed: ?See below for details Consults: ?See below for details Independent Historians/External Chart Reviews: ?See below for details Social Determinants of Health Impacting MDM/Planning: ?See below for details Lab Data 03/23/25 10:27 03/23/25 10:27 Labs: Lab Results 03/23/25 Range/Units 10:27 WBC 6.6 (4.8-10.8) X10*3/uL RBC 5.16 (4.60-5.80) X10*6/uL Hgb 16.5 (14.0-18.0) g/dl Hct 48.0 (42.0-52.0) % MCV 93.0 (80.0-98.0) fL MCH 32.0 (27.0-33.0) pg MCHC 34.4 (31.0-36.0) g/dl RDW 12.3 (11.0-16.0) % Plt Count 149 L (160-400) X10*3/uL MPV 10.3 (9.4-12.4) fL Immature Gran % (Auto) 0.2 (0.0-0.4) % Neut % (Auto) 74.5 H (45-73) % Lymph % (Auto) 13.7 L (20-40) % [place] % (Auto) 7.9 (2-11) % Eos % (Auto) 3.2 (0-4) % Baso % (Auto) 0.5 (0-2) % Lymph # (Auto) 0.9 L (1.2-4.9) X10*3/uL [place] # (Auto) 0.5 (0.1-1.2) X10*3/uL Eos # (Auto) 0.2 (0.0-0.4) X10*3/uL Baso # (Auto) 0.0 (0.0-0.2) X10*3/uL Abs Immat Gran (auto) 0.01 (0.00-0.03) X10*3/uL Absolute Neuts (auto) 4.9 (2.0-8.3) x10*3/uL Absolute Nucleated RBC 0.000 (0.0-0.012) X10*3/uL Nucleated RBC % (auto) 0.0 (0.0-0.2) /100WBC Sodium 141 (135-145) mmol/L Potassium 3.8 (3.3-5.1) mmol/L Chloride 109 H (96-108) mmol/L Carbon Dioxide 25 (22-29) mmol/L Anion Gap 11 L (12-20) BUN 15 (9-16) mg/dL Creatinine 1.01 (0.5-1.4) mg/dL Estim Creat Clear Calc 77.7 Estimated GFR > 60 Random Glucose 206 H (60-115) mg/dL Calcium 9.1 (8.4-10.2) mg/dL Magnesium 1.9 (1.6-2.6) mg/dL Total Bilirubin 1.6 H (0.0-1.0) mg/dL AST 25 (5-37) U/L ALT 20 (0-40) U/L Alkaline Phosphatase 129 H (39-117) U/L Troponin I High Sens 3.3 (<3.5-35.0) ng/L Total Protein 6.9 (6.5-8.0) g/dL Albumin 4.4 (3.5-5.0) g/dL Influenza Type A (PCR) NEGATIVE (Negative) Influenza Type B (PCR) NEGATIVE (Negative) RSV RNA Qual (PCR) NEGATIVE (Negative) SARS-CoV-2 RNA (RT-PCR) NEGATIVE (Negative) Discharge Plan Discharge Clinical Impression: Bronchitis Patient Disposition: Home, Self-Care Instructions: Acute Bronchitis (ED) Additional Instructions: Use the albuterol pump as needed for bronchitis which is likely viral you had a reassuring x-ray of your chest and clear lungs normal oxygen levels no fever. You did not need antibiotics at this time call your primary doctor for follow up Prescriptions: New prednisone 20 mg tablet 60 mg PO DAILY 1 Days Qty: 3 0RF albuterol sulfate 90 mcg/actuation HFA aerosol inhaler 2 puff inhalation Q6H PRN (Reason: shortness of breath or wheezing) Qty: 8.5 0RF No Action blood sugar diagnostic [FreeStyle Lite Strips] Strip 1 strip miscellaneous QID PRN (Reason: for diabetes mellitus) Qty: 150 11RF blood-glucose meter [FreeStyle Langdon Lite] Kit 1 ea miscellaneous DIRECTED Qty: 1 0RF lancets [TRUEplus Lancets] 33 gauge misc 1 gauge miscellaneous QID Qty: 100 11RF metformin 500 mg tablet 1,000 mg PO BID 30 Days Qty: 120 4RF pen needle, diabetic [Pentips Pen Needle] 32 gauge x 5/32 needle See Rx Instructions .ROUTE .COMPLEX Qty: 200 2RF Dose Instruction: USE SIX TIMES DAILY DIRECTED Rx Instructions: USE SIX TIMES DAILY DIRECTED insulin aspart U-100 [Novolog FlexPen U-100 Insulin] 100 unit/mL (3 mL) insulin pen See Rx Instructions subcut QID Qty: 30 0RF Rx Instructions: 6-8 units with meals, 2 units with snack subcut 4 times a day; potassium citrate 10 mEq (1,080 mg) tablet extended release 20 meq PO BID 90 Days Qty: 360 1RF calcium polycarbophil [Fiber-Lax] 625 mg tablet 625 mg PO TID Qty: 270 1RF doxazosin 4 mg tablet 8 mg PO BEDTIME 90 Days Qty: 180 1RF ranolazine 500 mg tablet extended release 12 hr 500 mg PO BID Qty: 180 3RF Repatha SureClick 140 mg/mL pen injector 140 mg subcut Q2W Qty: 2 5RF docusate sodium [Stool Softener] 100 mg capsule 200 mg PO BEDTIME Qty: 60 5RF finasteride 5 mg tablet 5 mg PO DAILY 90 Days Qty: 90 0RF furosemide 20 mg tablet 20 mg PO DAILY Qty: 90 3RF magnesium citrate Solution 300 ml PO DAILY PRN (Reason: constipation) Qty: 296 0RF dicyclomine 20 mg tablet 20 mg PO QID PRN (Reason: abdominal pain) Qty: 20 0RF methocarbamol 750 mg tablet 1,500 mg PO Q8H Qty: 20 0RF polyethylene glycol 3350 [Miralax] 17 gram/dose powder 17 g PO DAILY Qty: 119 0RF senna 8.6 mg capsule 8.6 mg PO BID PRN (Reason: constipation) Qty: 20 0RF lidocaine 5 % adhesive patch,medicated 1 patch topical DAILY Qty: 30 0RF Rx Instructions: leave on most painful area for up to 12 hrs lidocaine 5 % adhesive patch,medicated 1 patch topical DAILY PRN (Reason: pain) Qty: 15 0RF Rx Instructions: leave on most painful area for up to 12 hrs acetaminophen [Tylenol] 325 mg capsule 325 mg PO Q4H PRN (Reason: pain) Qty: 30 0RF acetaminophen [Tylenol Extra Strength] 500 mg tablet 500 mg PO Q8H PRN (Reason: pain) Qty: 30 0RF ibuprofen 600 mg tablet 600 mg PO Q6H PRN (Reason: fever or pain) Qty: 30 0RF oxycodone 5 mg tablet 5 mg PO Q6H PRN (Reason: pain) Qty: 15 0RF Rx Instructions: partial filing upon pt request; Partial Fill upon patient request. albuterol sulfate 2.5 mg /3 mL (0.083 %) solution for nebulization 2.5 mg inhalation QID PRN (Reason: bronchospasm) Qty: 75 0RF amoxicillin 500 mg capsule 500 mg PO BID Qty: 10 0RF clopidogrel 75 mg tablet 75 mg PO DAILY carvedilol 3.125 mg tablet 3.125 mg PO BID Rx Instructions: must administer with a meal/food lisinopril 2.5 mg tablet 2.5 mg PO DAILY isosorbide mononitrate 60 mg tablet extended release 24 hr 60 mg PO DAILY atorvastatin 80 mg tablet 80 mg PO DAILY melatonin 5 mg capsule See Rx Instructions PO ONCE Rx Instructions: 5 mg (2 tab) PO once; gabapentin 800 mg tablet 800 mg PO BID ezetimibe [Zetia] 10 mg tablet 10 mg PO DAILY (DME) FreeStyle Alfredo 2 Eastham Misc See Rx Instructions .ROUTE .MEDSUPPLY Qty: 1 0RF Rx Instructions: As directed (DME) FreeStyle Alfredo 2 Sensor Kit See Rx Instructions .ROUTE .MEDSUPPLY Qty: 2 11RF Rx Instructions: As directed every 2 weeks ammonium lactate 12 % cream 1 appl topical BID Lantus Solostar U-100 Insulin 100 unit/mL (3 mL) insulin pen 30 unit subcut DAILY Qty: 15 4RF fluticasone propionate 50 mcg/actuation spray,suspension 1 - 2 spray intranasal DAILY PRN (Reason: congestion) aspirin 81 mg tablet,chewable 81 mg PO QAM diclofenac sodium 1 % gel 2 g topical QID 30 Days Qty: 100 8RF Rx Instructions: apply to hand; for hand includes palm/fingers/back of hand pregabalin 100 mg capsule 100 mg PO ONCE naproxen 500 mg tablet 500 mg PO tizanidine 4 mg tablet 4 mg PO TID hydrocortisone [Proctozone-HC] 2.5 % cream with perineal applicator 1 appl ND BID PRN (Reason: hemorrhoids) Qty: 30 3RF Rx Instructions: apply ND BID prn polyethylene glycol 3350 [Miralax] 17 gram/dose powder 17 g PO DAILY 30 Days Qty: 510 6RF tadalafil 10 mg tablet 10 mg PO DAILY 90 Days Qty: 90 1RF nitroglycerin 0.4 mg tablet, sublingual 0.4 mg sublingual Q5M PRN (Reason: angina pectoris) Qty: 25 1RF Rx Instructions: do not exceed 3 doses per episode polyethylene glycol 3350 [Miralax] 17 gram/dose powder 238 g PO ONCE Qty: 238 0RF Rx Instructions: per colonoscopy prep instructions bisacodyl 5 mg tablet,delayed release (DR/EC) 5 mg PO ONCE 1 Days Qty: 3 0RF Rx Instructions: per colonoscopy instructions Discharge Date/Time: 03/23/25 17:00 Print Language: Slovak
[2025-03-23 10:03] VITALS: BP 137/76; PULSE 87; RESP 24; TEMP 36.6; O2SAT 99; BMI 24.2
[2025-03-23 10:36] LABS: MANUAL DIFF FLAG NO
[2025-03-23 10:38] LABS: Hematocrit 48.0 % (42.0-52.0); Hemoglobin 16.5 g/dl (14.0-18.0); Imm Gran Abs Auto 0.01 X10*3/uL (0.00-0.03); Imm Gran Pct Auto 0.2 % (0.0-0.4); Lymphocytes Absolute Auto 0.9 X10*3/uL (1.2-4.9); Mean Corpuscular HGB Conc 34.4 g/dl (31.0-36.0); Mean Corpuscular Hemoglobin 32.0 pg (27.0-33.0); Mean Corpuscular Volume 93.0 fL (80.0-98.0); NRBC Abs Auto 0.000 X10*3/uL (0.0-0.012); NRBC Pct Auto 0.0 /100WBC (0.0-0.2); Platelet Count 149 X10*3/uL (160-400); Red Blood Count 5.16 X10*6/uL (4.60-5.80); White Blood Count 6.6 X10*3/uL (4.8-10.8)
[2025-03-23 10:51] LABS: Alanine Aminotransferase 20 U/L (0-40); Albumin Level 4.4 g/dL (3.5-5.0); Alkaline Phosphatase 129 U/L (39-117); Anion Gap 11 (12-20); Aspartate Amino Transferase 25 U/L (5-37); Blood Urea Nitrogen 15 mg/dL (9-16); Calcium 9.1 mg/dL (8.4-10.2); Carbon Dioxide 25 mmol/L (22-29); Chloride 109 mmol/L (96-108); Creatinine Clr Calc Pharmacy 77.7; Estimated Glomerular Filt Rate > 60; Magnesium 1.9 mg/dL (1.6-2.6); Potassium 3.8 mmol/L (3.3-5.1); Sodium 141 mmol/L (135-145); Total Protein 6.9 g/dL (6.5-8.0)
[2025-03-23 10:55] LABS: Troponin-I High Sensitivity 3.3 ng/L (<3.5-35.0)
[2025-03-23 11:19] LABS: Resp Syncy Virus RNA Qual PCR NEGATIVE (Negative); SARS COV2 PCR INHOUSE NEGATIVE (Negative)
[2025-03-23 14:52] VITALS: BP 122/73; PULSE 78; RESP 18; TEMP 36.6; O2SAT 99
== END 2025-03-23 17:00 | disposition home or self-care (01) ==
PROVIDERS: Physician Assistant Medical; Emergency Provider Emergency Medicine; PCP Registered Nurse
DX: J40 Bronchitis, not specified as acute or chronic (principal); R06.02 Shortness of breath; E11.9 Type 2 diabetes mellitus without complications; I10 Essential (primary) hypertension; E78.5 Hyperlipidemia, unspecified; Z79.4 Long term (current) use of insulin; Z03.818 Encounter for observation for suspected exposure to other biological agents ruled out; Z79.02 Long term (current) use of antithrombotics/antiplatelets; Z79.899 Other long term (current) drug therapy
CPT/HCPCS: 71046; 80053; 83735; 84484; 85025; 87637; 99283; 99284

== ENCOUNTER → 2025-03-23 10:04 | Outpatient (BNV) | payer MEDICAID, SELFPAY | PROVIDERS: PCP Registered Nurse; Visit Provider Radiology Diagnostic Radiology | DX: R06.02 Shortness of breath (principal); Z95.1 Presence of aortocoronary bypass graft | CPT/HCPCS: 71046 ==

== ENCOUNTER 2025-04-05 14:34 | Outpatient (REF) | payer MEDICAID, SELFPAY ==
--- NOTE | ~2025-04-05 | US_ITS ---
EXAMINATION: US KIDNEY BILATERAL HISTORY: N20.0 - Calculus of kidney TECHNIQUE: Real-time grayscale ultrasound imaging of the kidneys was performed and images were reviewed. COMPARISON: Comparison is made with the prior examination dated 02/14/2023. FINDINGS: Right kidney: The right kidney measures 11.1 x 5.5 x 6.3 cm. Renal parenchymal echotexture and thickness are normal. There are no masses. There is a probable 5 mm nonobstructing calculus at the lower pole which does not shadow. There is no hydronephrosis. Left Kidney: The left kidney measures 11.9 x 6.0 x 5.3 cm. Renal parenchymal echotexture and thickness are normal. There are no masses. There is no hydronephrosis or renal calculi. US/US renal BI IMPRESSION: Probable 5 mm nonobstructing calculus at the lower pole of the right kidney. Electronically signed by: Darnell Lovell MD 04/05/2025 03:33 PM EST
--- OUTSIDE RECORDS SUMMARY | 2025-04-05 15:52 | XMS_ITS | Encounter Summary ---
Author Organization [employer] Address [address] [facility] [address] [place] [address] Care Team Providers Care Web Offset Press Feeder Name Role Phone Waleska Goldberg Primary Care Provider [phone] Abhishek Murdock RN Unavailable [phone] Abhishek Murdock RN Unavailable [phone] Ben Wilkinson Unavailable Reason for Visit * Reason Comments Med Refill Encounter Details Date Type Department Care Team (Late st Contact Info) Description 09/28/2023 Refill [facility] [address] [place] [address] Waleska Goldberg FNP [address] [place] [address] Insomnia, unspecified type Social History Tobacco Use [...] Care Team (Late st Contact Info) Description 06/02/2025 1:30 PM EST Office Visit [facility] [address] [place] [address] Weston Phillips DDS [address] [place] [address] 09/09/2025 9:30 AM EDT Office Visit [facility] OPT[facility] [address] [place] [address] Ayesha Leal, OD [address] [place] [address] documented as of this encounter Visit Diagnoses Diagnosis Insomnia, unspecified type documented in this encounter Additional Health Concerns Assessment Noted Time PHQ-9 Depression Total Score: 6 07/30/19 24 10:53 AM EDT documented as of this encounter Care Teams Web Offset Press Feeder Relationship Specialty Start Date End Date Waleska Goldberg FNP [address] [place] [address] PCP - General Family Medicine 12/12/21 Abhishek Murdock, FARSHAD [address] [place] [address] Registered Nurse Family Medicine 12/20/24 01/07/25 Abhishek Murdock, RN [address] [place] [id number] Registered Nurse Family Medicine 03/08/25 Ben Wilkinson 03/08/25 Gloria Flores Operations Business PartnerStraight Cutter 03/13/23 documented as of this encounter
--- OUTSIDE RECORDS SUMMARY | 2025-04-05 15:52 | XMS_ITS | Encounter Summary ---
Author Organization [employer] Address [address] [facility] [address] [place] [address] Care Team Providers Care Gas Line Installer Supervisor Name Role Phone Waleska Goldberg Primary Care Provider [phone] Abhishek Murdock RN Unavailable [phone] Abhishek Murdock RN Unavailable [phone] Ben Wilkinson Unavailable Reason for Visit * Reason Onset Date Comments Referral 05/28/2022 Encounter Details Date Type Department Care Team ([facility] st Contact Info) Description 05/28/2022 Telephone [facility] [address] [place] [address] Waleska Goldberg FNP [address] [place], [place] [id number] Referral Social History Tobacco Use Types Packs/Day [...] Description 06/02/2025 1:30 PM EST Office Visit [facility] ADULT DENT[facility] [address] [place] [address] Weston Phillips DDS [address] [place] [address] 09/09/2025 9:30 AM EDT Office Visit [facility] [address] [place] [address] Ayesha Leal, OD [address] [place] [address] documented as of this encounter Visit Diagnoses Not on filedocumented in this encounter Care Teams Gas Line Installer Supervisor Relationship Specialty Start Date End Date Waleska Goldberg FNP [address] [place] [address] PCP - General Family Medicine 12/12/21 Abhishek Murdock RN [address] [place] [address] Registered Nurse Family Medicine 12/20/24 01/07/25 Abhishek Murdock, RN [address] [place] [address] Registered Nurse Family Medicine 03/08/25 Ben Wilkinson 03/08/25 Gloria Flores Rocket ScientistGreenhouse Technician 03/13/23 documented as of this encounter
--- OUTSIDE RECORDS SUMMARY | 2025-04-05 15:52 | XMS_ITS | Encounter Summary ---
Author Organization [employer] Address [address] [facility] [address] [place] [address] Care Team Providers Care Cleaning Machine Operator Name Role Phone Waleska Goldberg Primary Care Provider [phone] Abhishek Murdock RN Unavailable [phone] Abhishek Murdock RN Unavailable [phone] Ben Wilkinson Unavailable Reason for Visit * Reason Onset Date Comments Hospital Follow-up 05/04/2024 Encounter Details Date Type Department Care Team (Late st Contact Info) Description 05/04/2024 Telephone [facility] [address] [place] [address] Waleska Goldberg FNP [address] [place], [place] [phone] Hospital Follow-up Social History Tobacco Use Types [...] has to be remove *Send message to [facility] Clinical Care Coordinators documented in this encounter Plan of Treatment Upcoming Encounters Date Type Department Care Team (Late st Contact Info) Description 06/02/2025 1:30 PM EST Office Visit [facility] [address] [place] [address] Weston Phillips DDS [address] [place] [address] 09/09/2025 9:30 AM EDT Office Visit [facility] [address] [place] [address] Ayesha Leal, OD [address] [place] [address] documented as of this encounter Visit Diagnoses Not on filedocumented in this encounter Additional Health Concerns Assessment Noted Time PHQ-9 Depression Total Score: 6 07/30/19 24 10:53 AM EDT documented as of this encounter Care Teams Cleaning Machine Operator Relationship Specialty Start Date End Date Waleska Goldberg FNP [address] [place] [address] PCP - General Family Medicine 12/12/21 Abhishek Murdock, RN [address] [place] [address] Registered Nurse Family Medicine 12/20/24 01/07/25 Abhishek Murdock, RN [address] [place] [address] Registered Nurse Family Medicine 03/08/25 Ben Wilkinson 03/08/25 Gloria Flores Cage SupervisorService Consultant 03/13/23 documented as of this encounter
--- OUTSIDE RECORDS SUMMARY | 2025-04-05 15:52 | XMS_ITS | Encounter Summary ---
Author Organization [facility] Address [address] [facility] [address] [place] [address] Care Team Providers Care Balance Wheel Hand Filer Name Role Phone Waleska Goldberg MANUFACTURING TEST ENGINEER Primary Care Provider [phone] Abhishek Murdock RN Unavailable [phone] Abhishek Murdock RN Unavailable [phone] Ben Wilkinson Unavailable Encounter Details Date Type Department Care Team (Latest Contact Info) Description 03/24/2019 Abstract [facility] CONVERSIONS Dental, Provider, DDS Social History Tobacco [...] Description 06/02/2025 1:30 PM EST Office Visit [facility] ADULT DENTAL [address] [place] [address] Weston Phillips DDS [address] [place] [address] 09/09/2025 9:30 AM EDT Office Visit [facility] OPTOMETRY [address] [place] [address] Ayesha Leal, OD [address] [place] [address] documented as of this encounter Visit Diagnoses Not on filedocumented in this encounter Care Teams Balance Wheel Hand Filer Relationship Specialty Start Date End Date Waleska Goldberg FNP [address] [place] [address] PCP - General Family Medicine 12/12/21 Abhishek Murdock, RN [address] [place] [address] Registered Nurse Family Medicine 12/20/24 01/07/25 Abhishek Murdock, FARSAHD [address] [place] [address] Registered Nurse Family Medicine 03/08/25 Ben Wilkinson 03/08/25 Gloria Flores Faith DoctorFlux Plant Operator 03/13/23 documented as of this encounter
--- OUTSIDE RECORDS SUMMARY | 2025-04-05 15:52 | XMS_ITS | Encounter Summary ---
Author Organization [employer] Address [address] [facility] 7t [place] [address] Care Team Providers Care Home Housekeeper Name Role Phone Waleska Goldberg DICE DEALER Primary Care Provider [phone] Abhishek Murdock RN Unavailable [phone] Abhishek Murdock RN Unavailable [phone] Ben Wilkinson Unavailable Encounter Details Date Type Department Care Team (Latest Contact Info) Description 07/10/2020 Abstract [facility] CONVERSIONS Dental, [...] Description 06/02/2025 1:30 PM EST Office Visit [facility] ADULT DENTAL [address] [place] [address] Weston Phillips DDS [address] [place] [address] 09/09/2025 9:30 AM EDT Office Visit [facility] OPTOMETRY [address] [place] [address] Ayesha Leal, OD [address] [place] [address] documented as of this encounter Visit Diagnoses Not on filedocumented in this encounter Care Teams Home Housekeeper Relationship Specialty Start Date End Date Waleska Goldberg FNP [address] [place] [address] PCP - General Family Medicine 12/12/21 Abhishek Murdock, RN [address] [place] [address] Registered Nurse Family Medicine 12/20/24 01/07/25 Abhishek Murdock, FARSHAD [address] [place] [address] Registered Nurse Family Medicine 03/08/25 Ben Wilkinson 03/08/25 Gloria Flores Lot AssociateBrush Hand 03/13/23 documented as of this encounter
--- OUTSIDE RECORDS SUMMARY | 2025-04-05 15:52 | XMS_ITS | Encounter Summary ---
Author Organization [employer] Address [address] [facility] [address]t [place] [address] Care Team Providers Care Mining Analyst Name Role Phone Waleska Goldberg INVESTIGATOR INTERNAL AFFAIRS Primary Care Provider [phone] Abhishek Murdock RN Unavailable [phone] Abhishek Murdock RN Unavailable [phone] Ben Wilkinson Unavailable Reason for Visit * Reason Comments Med Refill Encounter Details Date Type Department Care Team ([facility] st Contact Info) Description 06/07/2024 Refill [facility] CH[facility] MED & PEDS [address] [place], [place] [phone] Waleska Goldberg FNP [address] [place], [place] [phone] Fracture of left patella with routine healing [...] pt regarding message below via BLS ID# [id number]. Pt stated he has an appt scheduled [...] refill of Percocet. Called via BLS ID# [id number]. Also called pt on 06/01/24 advisingof the message from PCP on 06/01/24: Please let him know that short course of opioid was sent in with plan for no refills. He should hopefully be feeling better, but if not, will need to follow up for visit. Walk in [place] extended open tonight PRN. Thank you! Pt then verbalized understanding. Pt called again for a refill today. Stated he does not want to goto walk in [place], asked for a f/u appt with PCP which was scheduled for 07/16/24. Pt verbalized understanding. documented in this encounter Plan of Treatment Upcoming Encounters Date Type Department Care Team (Late st Contact Info) Description 06/02/2025 1:30 PM EST Office Visit [facility] ADULT DENTAL [address] [place] [address] Weston Phillips DDS [address] [place] [address] 09/09/2025 9:30 AM EDT Office Visit [facility] OPTOMETRY [address] [place] [address] TarAyesha davalos, OD [address] [place] [address] documented as of this encounter Visit Diagnoses Diagnosis Fracture of left patella with routine healing documented in this encounter Additional Health Concerns Assessment Noted Time PHQ-9 Depression Total Score: 6 07/30/19 24 10:53 AM EDT documented as of this encounter Care Teams Mining Analyst Relationship Specialty Start Date End Date Waleska Goldberg FNP [address] [place] [address] PCP - General Family Medicine 12/12/21 Abhishek Murdock RN [address] [place] [address] Registered Nurse Family Medicine 12/20/24 01/07/25 Abhishek Murdock RN [address] [place] [address] Registered Nurse Family Medicine 03/08/25 Ben Wilkinson 03/08/25 Gloria Flores Fence Making Machine OperatorGas Regulator Repairer Helper 03/13/23 documented as of this encounter
--- OUTSIDE RECORDS SUMMARY | 2025-04-05 15:52 | XMS_ITS | Encounter Summary ---
Author Organization [employer] Address [address] [facility] 7t [place] [address] Care Team Providers Care Repeater Chief Name Role Phone Waleska Goldberg Primary Care Provider [phone] Abhishek Murdock RN Unavailable [phone] Abhishek Murdock RN Unavailable [phone] Ben Wilkinson Unavailable Reason for Visit * Reason Onset Date Comments Med Refill 06/01/2024 Encounter Details Date Type Department Care Team (Late st Contact Info) Description 06/01/2024 Refill [facility] MEDICINE [address] [place] [address] Waleska Goldberg FNP [address] [place], [place] [phone] Fracture of left patella with routine healing [...] up [facility] visit. [facility]. [facility]! * Telephone Encounter - Dee Nuñez - 06/01/2024 3:53 PM EST TC from pt requesting medication refill. Medications needing refill : oxyCODONE-acetaminophen (Percocet) 10-325 MG tablet To be sent to: [facility]/pharmacy #[id number] [place], [place] - [address] [place] [address] documented in this encounter Plan of Treatment Upcoming Encounters Date Type Department Care Team ([facility] st Contact Info) Description 06/02/2025 1:30 PM EST Office Visit [facility] ADULT DENTAL [address] [place], [place] [phone] Weston Phillips, DDS [address] [place] [address] 09/09/2025 9:30 AM EDT Office Visit [facility] OPTOMETRY [address] [place] [address] Elvis Ayesha, OD [address] [place] [address] documented as of this encounter Visit Diagnoses Diagnosis Fracture of left patella with routine healing documented in this encounter Additional Health Concerns Assessment Noted Time PHQ-9 Depression Total Score: 6 07/30/19 24 10:53 AM EDT documented as of this encounter Care Teams Repeater Chief Relationship Specialty Start Date End Date Waleska Goldberg FNP [address] [place] [address] PCP - General Family Medicine 12/12/21 Abhishek Murdock RN [address] [place] [address] Registered Nurse Family Medicine 12/20/24 01/07/25 Abhishek Murdock, FARSHAD [address] [place] [address] Registered Nurse Family Medicine 03/08/25 Ben Wilkinson 03/08/25 Gloria Flores Thoracic Medicine SpecialistMandrel Press Hand 03/13/23 documented as of this encounter
--- OUTSIDE RECORDS SUMMARY | 2025-04-05 15:52 | XMS_ITS | Encounter Summary ---
Author Organization [employer] Address [address] [facility] [address] [place] [address] Care Team Providers Care Greeting Card Writer Name Role Phone Waleska Goldberg Primary Care Provider [phone] Abhishek Murdock RN Unavailable [phone] Abhishek Murdock RN Unavailable [phone] Ben Wilkinson Unavailable Reason for Visit * Reason Onset Date Comments Med Refill 05/06/2024 Encounter Details Date Type Department Care Team (Late st Contact Info) Description 05/06/2024 Telephone [facility] MEDICINE [address] [place] [address] Waleska Goldberg FNP [address] [place], [place] [phone] Med Refill Social History Tobacco Use Types [...] 10-325 MG tablet To be sent to: [facility] - [place], [place] - [address] [place] [address] documented in this encounter Plan of Treatment Upcoming Encounters Date Type Department Care Team (Late st Contact Info) Description 06/02/2025 1:30 PM EST Office Visit [facility] ADULT DENTAL [address] [place] [address] Weston Phillips, DDS [address] [place] [address] 09/09/2025 9:30 AM EDT Office Visit [facility] OPTOMETRY [address] [place] [address] Ayesha Leal, OD [address] [place] [address] documented as of this encounter Visit Diagnoses Not on filedocumented in this encounter Additional Health Concerns Assessment Noted Time PHQ-9 Depression Total Score: 6 07/30/19 24 10:53 AM EDT documented as of this encounter Care Teams Greeting Card Writer Relationship Specialty Start Date End Date Waleska Goldberg FNP [address] [place] [address] PCP - General Family Medicine 12/12/21 Abhishek Murdock, FARSHAD [address] [place] [address] Registered Nurse Family Medicine 12/20/24 01/07/25 Abhishek Murdock RN [address] [place] [address] Registered Nurse Family Medicine 03/08/25 Ben Wilkinson 03/08/25 Gloria Flores Mine AnalystOveredge Sewer 03/13/23 documented as of this encounter
--- OUTSIDE RECORDS SUMMARY | 2025-04-05 15:52 | XMS_ITS | Encounter Summary ---
Author Organization [employer] Address [address] [facility] [address]t [place] [address] Care Team Providers Care Brine Tank Operator Name Role Phone Waleska Goldberg GEOGRAPHIC INFORMATION SYSTEM SURVEYOR Primary Care Provider [phone] Abhishek Murdock RN Unavailable [phone] Abhishek Murdock RN Unavailable [phone] Ben Wilkinson Unavailable Reason for Visit * Reason Onset Date Comments Referral 06/30/2024 Encounter Details Date Type Department Care Team ([facility] Contact Info) Description 06/30/2024 Telephone [facility] MED & PEDS [address] [place], [place] [phone] Waleska Goldberg FNP [address] [place], [place] [phone] Referral Social History Tobacco Use Types Packs/Day [...] PM EDT Insurance authorization for 20 visits #[id number] faxed to Jan Shen @ [phone]. * Telephone Encounter - Yvonne Palomino - [...] 06/02/2025 1:30 PM EST Office Visit [facility] ADULT DENTAL [address] [place] [address] Weston Phillips DDS [address] [place] [address] 09/09/2025 9:30 AM EDT Office Visit [facility] OPTOMETRY [address] [place], [place] [phone] Ayesha Leal, OD [address] [place], [place] [phone] documented as of this encounter Visit Diagnoses Not on filedocumented in this encounter Additional Health Concerns Assessment Noted Time PHQ-9 Depression Total Score: 6 07/30/19 24 10:53 AM EDT documented as of this encounter Care Teams Brine Tank Operator Relationship Specialty Start Date End Date Waleska Goldberg FNP [address] [place] [address] PCP - General Family Medicine 12/12/21 Abhishek Murdock, FARSHAD [address] [place] [address] Registered Nurse Family Medicine 12/20/24 01/07/25 Abhishek Murdock, FARSHAD [address] [place] [address] Registered Nurse Family Medicine 03/08/25 Ben Wilkinson 03/08/25 Gloria Flores ShampooerArmy Ranger 03/13/23 documented as of this encounter
--- OUTSIDE RECORDS SUMMARY | 2025-04-05 15:53 | XMS_ITS | Encounter Summary ---
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 Name Role Phone Waleska Goldberg Primary Care Provider [phone] Abhishek Murdock RN Unavailable [phone] Ben Wilkinson Unavailable Encounter Details Date Type Department Care Team ([facility] st Contact Info) Description 03/28/2025 Telephone [facility] MEDICINE [address] [place], [place] [phone] Waleska Goldberg FNP [address] [place], [place] [id number] Social History Tobacco Use Types Packs/Day Years [...] Description 06/02/2025 1:30 PM EST Office Visit [facility] ADULT DENTAL [address] [place] [address] Weston Phillips, DDS [address] [place] [address] 09/09/2025 9:30 AM EDT Office Visit [facility] OPTOMETRY [address] [place] [address] Ayesha Leal, OD [address] [place] [address] documented as of this encounter Goals Goal [...] Patient has diabetic neuropathy No Dacia, Claudette, PUBLIC WELFARE DIRECTOR Weekly blood pressure task Care Plan Weekly blood pressure task No Blairsden GraeagleRadhaClaudette, PUBLIC WELFARE DIRECTOR Weekly blood pressure task Care Plan Weekly blood pressure task No Dacia Claudette, PUBLIC WELFARE DIRECTOR Patient has chronic kidney disease Care Plan Patient has chronic kidney disease No Dacia Claudette, PUBLIC WELFARE DIRECTOR Patient has chronic kidney disease Care Plan Patient has chronic kidney disease No Dacia Claudette, PUBLIC WELFARE DIRECTOR Patient has diabetic neuropathy Care Plan Patient has diabetic neuropathy No DaciaRadhaClaudette, PUBLIC WELFARE DIRECTOR Patient has diabetic neuropathy Care Plan Patient has diabetic neuropathy No Blairsden GraeagleRadhaClaudette, PUBLIC WELFARE DIRECTOR Weekly blood pressure task Care Plan Weekly [...] Plan Weekly blood pressure task No DaciaRadhaClaudette, PUBLIC WELFARE DIRECTOR Weekly blood pressure task Care Plan Weekly blood pressure task No Dacia, Claudette, PUBLIC WELFARE DIRECTOR Weekly blood pressure task Care Plan Weekly blood pressure task No Dacia, Claudette, PUBLIC WELFARE DIRECTOR Patient has chronic kidney disease Care Plan Patient has chronic kidney disease No DaciaRadhaClaudette, PUBLIC WELFARE DIRECTOR Patient has chronic kidney disease Care Plan Patient has chronic kidney disease No Blairsden GraeagleRadhaClaudette, PUBLIC WELFARE DIRECTOR Patient has chronic kidney disease Care Plan Patient has chronic kidney disease No Blairsden GraeagleRadhaClaudette, PUBLIC WELFARE DIRECTOR Patient has diabetic neuropathy Care Plan Patient has diabetic neuropathy No Blairsden GraeagleRadhaClaudette, PUBLIC WELFARE DIRECTOR Patient has diabetic neuropathy Care Plan Patient has diabetic neuropathy No Dacia, Claudette, PUBLIC WELFARE DIRECTOR Patient has diabetic neuropathy Care Plan Patient has diabetic neuropathy No DaciaRomana wilsone, PUBLIC WELFARE DIRECTOR Weekly blood pressure task Care Plan Weekly blood pressure task No Blairsden Graeagle, Claudette, PUBLIC WELFARE DIRECTOR Weekly blood pressure task Care Plan Weekly blood pressure task No Dacia, Claudette, PUBLIC WELFARE DIRECTOR Weekly blood pressure task Care Plan Weekly blood pressure task No Dacia, Claudette, PUBLIC WELFARE DIRECTOR Patient has chronic kidney disease Care Plan Patient has chronic kidney disease No Blairsden Graeagle, Claudette, PUBLIC WELFARE DIRECTOR Patient has chronic kidney disease Care Plan Patient has chronic kidney disease No Dacia, Claudette, PUBLIC WELFARE DIRECTOR Patient has chronic kidney disease Care Plan Patient has chronic kidney disease No Dacia, Claudette, PUBLIC WELFARE DIRECTOR Patient has diabetic neuropathy Care Plan Patient has diabetic neuropathy No Dacia, Claudette, PUBLIC WELFARE DIRECTOR Patient has diabetic neuropathy Care Plan Patient has diabetic neuropathy No Dacia, Claudette, PUBLIC WELFARE DIRECTOR Patient has diabetic neuropathy Care Plan Patient has diabetic neuropathy No Dacia, Claudette, PUBLIC WELFARE DIRECTOR Weekly blood pressure task Care Plan Weekly blood pressure task No Phalen, Waleska, FINANCIAL SALES PROFESSIONAL Weekly blood pressure task Care Plan Weekly blood pressure task No Phalen, Waleska, FINANCIAL SALES PROFESSIONAL Weekly blood pressure task Care Plan Weekly blood pressure task No Phalen, Waleska, FINANCIAL SALES PROFESSIONAL Patient has chronic kidney disease Care Plan Patient has chronic kidney disease No Phalen, Waleska, FINANCIAL SALES PROFESSIONAL Patient has chronic kidney disease Care Plan Patient has chronic kidney disease No Phalen, Waleska, FINANCIAL SALES PROFESSIONAL Patient has chronic kidney disease Care Plan Patient has chronic kidney disease No Phalen, Waleska, FINANCIAL SALES PROFESSIONAL Patient has diabetic neuropathy Care Plan Patient has diabetic neuropathy No Phalen, Waleska, FINANCIAL SALES PROFESSIONAL Patient has diabetic neuropathy Care Plan Patient has diabetic neuropathy No Phalen, Waleska, FINANCIAL SALES PROFESSIONAL Patient has diabetic neuropathy Care Plan Patient has diabetic neuropathy No Phalen, Waleska, FINANCIAL SALES PROFESSIONAL Weekly blood pressure task Care Plan Weekly [...] Patient has diabetic neuropathy No Clary Omaira Weekly blood pressure task Care Plan Weekly blood pressure task No Harpreet Nayla Weekly blood pressure task Care Plan [...] Patient has chronic kidney disease No Colon, Anyla Patient has diabetic neuropathy Care Plan Patient has diabetic neuropathy No Colon, Nayla Patient has diabetic neuropathy Care Plan Patient has diabetic neuropathy No Colon, Nayla Patient has diabetic neuropathy Care Plan Patient has diabetic neuropathy No Colon, Nayla Weekly blood pressure task Care Plan Weekly blood pressure task No Audrey Ingram RN Weekly blood pressure task Care Plan Weekly blood pressure task No Audrey Ingram RN Weekly blood pressure task Care Plan Weekly blood pressure task No Audrey Ingram RN Patient has chronic kidney disease Care Plan Patient has chronic kidney disease No Audrey Ingram RN Patient has chronic kidney disease Care Plan Patient has chronic kidney disease No Audrey Ingram RN Patient has chronic kidney disease Care Plan Patient has chronic kidney disease No Audrey Ingram RN Patient has diabetic neuropathy Care Plan Patient has diabetic neuropathy No Audrey Ingram RN Patient has diabetic neuropathy Care Plan Patient has diabetic neuropathy No Audrey Ingram RN Patient has diabetic neuropathy Care Plan Patient has diabetic neuropathy No Audrey Ingram RN Weekly blood pressure task Care Plan Weekly blood pressure task No Abhishek Murdock RN Weekly blood pressure task Care Plan Weekly blood pressure task No Abhishek Murdock RN Weekly blood pressure task Care Plan Weekly blood pressure task No Abhishek Murdock RN Patient has chronic kidney disease Care Plan Patient has chronic kidney disease No Abhishek Murdock RN Patient has chronic kidney disease Care Plan Patient has chronic kidney disease No Abhishek Murdock RN Patient has chronic kidney disease Care Plan Patient has chronic kidney disease No Abhishek Murdock RN Patient has diabetic neuropathy Care Plan Patient has diabetic neuropathy No Abhishek Murdock RN Patient has diabetic neuropathy Care Plan Patient has diabetic neuropathy No Abhishek Murdock RN Patient has diabetic neuropathy Care Plan Patient has diabetic neuropathy No Abhishek Murdock RN Weekly blood pressure task Care Plan Weekly blood pressure task No Ben Wilkinson Weekly blood pressure task Care Plan Weekly blood pressure task No Ben Wilkinson Weekly blood pressure task Care Plan Weekly blood pressure task No Minh Ben Patient has chronic kidney disease Care Plan Patient has chronic kidney disease No Asher Wilkinsonjohn Patient has chronic kidney disease Care Plan Patient has chronic kidney disease No Asher Wilknisonjohn Patient has chronic kidney disease Care Plan Patient has chronic kidney disease No Asher Wilkinsonjohn Patient has diabetic neuropathy Care Plan Patient has diabetic neuropathy No Asher Wilkinsonjohn Patient has diabetic neuropathy Care Plan Patient has diabetic neuropathy No Ben Wilkinson Patient has diabetic neuropathy Care Plan Patient has diabetic neuropathy No Ben Wilkinson Weekly blood pressure task Care Plan Weekly blood pressure task No Ben Wilkinson Weekly blood pressure task Care Plan Weekly blood pressure task No Ben Wilkinson Weekly blood pressure task Care Plan Weekly blood pressure task No Ben Wilkinson Patient has chronic kidney disease Care Plan Patient has chronic kidney disease No Asher Wilkinsonjohn Patient has chronic kidney disease Care Plan Patient has chronic kidney disease No Asher Wilkinsonjohn Patient has chronic kidney disease Care Plan Patient has chronic kidney disease No Ben Wilkinson Patient has diabetic neuropathy Care Plan Patient has diabetic neuropathy No Ben Wilkinson Patient has diabetic neuropathy Care Plan Patient has diabetic neuropathy No Ben Wilkinson Patient has diabetic neuropathy Care Plan Patient has diabetic neuropathy No Ben Wilkinson Weekly blood pressure task Care Plan Weekly blood pressure task No Phalarcelia Waleska, FINANCIAL SALES PROFESSIONAL Weekly blood pressure task Care Plan Weekly blood pressure task No Phalarcelia Waleska, FINANCIAL SALES PROFESSIONAL Weekly blood pressure task Care Plan Weekly blood pressure task No Phalarcelia Waleska, FINANCIAL SALES PROFESSIONAL Patient has chronic kidney disease Care Plan Patient has chronic kidney disease No Phalarcelia Waleska, FINANCIAL SALES PROFESSIONAL Patient has chronic kidney disease Care Plan Patient has chronic kidney disease No Phalarcelia Waleska, FINANCIAL SALES PROFESSIONAL Patient has chronic kidney disease Care Plan Patient has chronic kidney disease No Phalen, Waleska, FINANCIAL SALES PROFESSIONAL Patient has diabetic neuropathy Care Plan Patient has diabetic neuropathy No Phalen, Waleska, FINANCIAL SALES PROFESSIONAL Patient has diabetic neuropathy Care Plan Patient has diabetic neuropathy No Phalen, Waleska, FINANCIAL SALES PROFESSIONAL Patient has diabetic neuropathy Care Plan Patient has diabetic neuropathy No Phalen, Waleska, FINANCIAL SALES PROFESSIONAL Weekly blood pressure task Care Plan Weekly blood pressure task No Dacia Claudette, PUBLIC WELFARE DIRECTOR Weekly blood pressure task Care Plan Weekly blood pressure task No Dacia, Claudette, PUBLIC WELFARE DIRECTOR Weekly blood pressure task Care Plan Weekly blood pressure task No Radha Pedersondie, PUBLIC WELFARE DIRECTOR Patient has chronic kidney disease Care Plan Patient has chronic kidney disease No Blairsden Graeagle, Claudette, PUBLIC WELFARE DIRECTOR Patient has chronic kidney disease Care Plan Patient has chronic kidney disease No Blairsden Graeagle, Claudette, PUBLIC WELFARE DIRECTOR Patient has chronic kidney disease Care Plan Patient has chronic kidney disease No Dacia, Claudette, PUBLIC WELFARE DIRECTOR Patient has diabetic neuropathy Care Plan Patient has diabetic neuropathy No Blairsden Graeagle, Claudette, PUBLIC WELFARE DIRECTOR Patient has diabetic neuropathy Care Plan Patient has diabetic neuropathy No Blairsden Graeagle, Claudette, PUBLIC WELFARE DIRECTOR Patient has diabetic neuropathy Care Plan Patient has diabetic neuropathy No Blairsden Graeagle, Claudette, PUBLIC WELFARE DIRECTOR Weekly blood pressure task Care Plan Weekly [...] Patient has diabetic neuropathy No Colon, Nayla Weekly blood pressure task Care Plan Weekly blood pressure task No West Rojas, PharmD Weekly blood pressure task Care Plan Weekly blood pressure task No West Rojas, PharmD Weekly blood pressure task Care Plan Weekly blood pressure task No West Rojas, PharmD Patient has chronic kidney disease Care Plan Patient has chronic kidney disease No West Rojas, PharmD Patient has chronic kidney disease Care Plan Patient has chronic kidney disease No West Rojas, PharmD Patient has chronic kidney disease Care Plan Patient has chronic kidney disease No West Rojas, PharmD Patient has diabetic neuropathy Care Plan Patient has diabetic neuropathy No West Rojas, PharmD Patient has diabetic neuropathy Care Plan Patient has diabetic neuropathy No West Rojas, PharmD Patient has diabetic neuropathy Care Plan Patient has diabetic neuropathy No West Rojas, PharmD Weekly blood pressure task Care Plan Weekly blood pressure task No West Rojas, PharmD Weekly blood pressure task Care Plan Weekly blood pressure task No West Rojas, PharmD Weekly blood pressure task Care Plan Weekly blood pressure task No West Rojas, PharmD Patient has chronic kidney disease Care Plan Patient has chronic kidney disease No West Rojas, PharmD Patient has chronic kidney disease Care Plan Patient has chronic kidney disease No West Rojas PharmD Patient has chronic kidney disease Care Plan Patient has chronic kidney disease No West Rojas PharmD Patient has diabetic neuropathy Care Plan Patient has diabetic neuropathy No West Rojas PharmD Patient has diabetic neuropathy Care Plan Patient has diabetic neuropathy No West Rojas PharmD Patient has diabetic neuropathy Care Plan Patient has diabetic neuropathy No West Rojas PharmD documented as of this encounter Visit Diagnoses Diagnosis Coronary arteriosclerosis Coronary atherosclerosis of unspecified type of vessel, [place] or graft Chronic systolic heart failure (HCC) Chronic systolic heart failure documented in this encounter Additional Health Concerns [...] neuropathy 03/07/2025 Patient has diabetic neuropathy 03/07/2025 Weekly blood pressure task 03/08/2025 Weekly blood pressure task 03/08/2025 Weekly blood pressure task 03/08/2025 Patient has chronic kidney disease 03/08/2025 Patient has chronic kidney disease 03/08/2025 Patient has chronic kidney disease 03/08/2025 Patient has diabetic neuropathy 03/08/2025 Patient has diabetic neuropathy 03/08/2025 Patient has diabetic neuropathy 03/08/2025 Weekly blood pressure task 03/08/2025 Weekly blood pressure task 03/08/2025 Weekly blood pressure task 03/08/2025 Patient has chronic kidney disease 03/08/2025 Patient has chronic kidney disease 03/08/2025 Patient has chronic kidney disease 03/08/2025 Patient has diabetic neuropathy 03/08/2025 Patient has diabetic neuropathy 03/08/2025 Patient has diabetic neuropathy 03/08/2025 Weekly blood pressure task 03/08/2025 Weekly blood pressure task 03/08/2025 Weekly blood pressure task 03/08/2025 Patient has chronic kidney disease 03/08/2025 Patient has chronic kidney disease 03/08/2025 Patient has chronic kidney disease 03/08/2025 Patient has diabetic neuropathy 03/08/2025 Patient has diabetic neuropathy 03/08/2025 Patient has diabetic neuropathy 03/08/2025 Weekly blood pressure task 03/08/2025 Weekly blood pressure task 03/08/2025 Weekly blood pressure task 03/08/2025 Patient has chronic kidney disease 03/08/2025 Patient has chronic kidney disease 03/08/2025 Patient has chronic kidney disease 03/08/2025 Patient has diabetic neuropathy 03/08/2025 Patient has diabetic neuropathy 03/08/2025 Patient has diabetic neuropathy 03/08/2025 Weekly blood pressure task 03/18/2025 Weekly blood pressure task 03/18/2025 Weekly blood pressure task 03/18/2025 Patient has chronic kidney disease 03/18/2025 Patient has chronic kidney disease 03/18/2025 Patient has chronic kidney disease 03/18/2025 Patient has diabetic neuropathy 03/18/2025 Patient has diabetic neuropathy 03/18/2025 Patient has diabetic neuropathy 03/18/2025 Weekly blood pressure task 03/21/2025 Weekly blood pressure task 03/21/2025 Weekly blood pressure task 03/21/2025 Patient has chronic kidney disease 03/21/2025 Patient has chronic kidney disease 03/21/2025 Patient has chronic kidney disease 03/21/2025 Patient has diabetic neuropathy 03/21/2025 Patient has diabetic neuropathy 03/21/2025 Patient has diabetic neuropathy 03/21/2025 Weekly blood pressure task 03/28/2025 Weekly blood pressure task 03/28/2025 Weekly blood pressure task 03/28/2025 Patient has chronic kidney disease 03/28/2025 Patient has chronic kidney disease 03/28/2025 Patient has chronic kidney disease 03/28/2025 Patient has diabetic neuropathy 03/28/2025 Patient has diabetic neuropathy 03/28/2025 Patient has diabetic neuropathy 03/28/2025 Weekly blood pressure task 03/28/2025 Weekly blood pressure task 03/28/2025 Weekly blood pressure task 03/28/2025 Patient has chronic kidney disease 03/28/2025 Patient has chronic kidney disease 03/28/2025 Patient has chronic kidney disease 03/28/2025 Patient has diabetic neuropathy 03/28/2025 Patient has diabetic neuropathy 03/28/2025 Patient has diabetic neuropathy 03/28/2025 Weekly blood pressure task 03/28/2025 Weekly blood pressure task 03/28/2025 Weekly blood pressure task 03/28/2025 Patient has chronic kidney disease 03/28/2025 Patient has chronic kidney disease 03/28/2025 Patient has chronic kidney disease 03/28/2025 Patient has diabetic neuropathy 03/28/2025 Patient has diabetic neuropathy 03/28/2025 Patient has diabetic neuropathy 03/28/2025 Assessment Noted Time PHQ-9 Depression Total Score: 0 08/11/19 11:33 AM EDT documented as of this encounter Care Teams Dry Yard Worker Relationship Specialty Start Date End Date Waleska Goldebrg FNP [address] [place] [id number] PCP - General Family Medicine 12/12/21 Abhishek Murdock, FARSHAD [address] [place] [id number] Registered Nurse Family Medicine 03/08/25 Ben Wilkinson 03/08/25 lGoria Flores Clamp RemoverField Radio Operator 03/13/23 documented as of this encounter
--- OUTSIDE RECORDS SUMMARY | 2025-04-05 15:53 | XMS_ITS | Encounter Summary ---
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 Chief Name Role Phone Waleska Goldberg Primary Care Provider [phone] Abhishek Murdock RN Unavailable [phone] Ben Wilkinson Unavailable Reason for Visit * Reason Comments Med Refill Encounter Details Date Type Department Care Team (Late st Contact Info) Description 03/28/2025 Refill [facility] MEDICINE [address] [place] [address] Waleska Goldberg FNP [address] [place] [address] Coronary arteriosclerosis; Chronic systolic heart failure (HCC) Social History Tobacco Use Types Packs/Day Years [...] Telephone Encounter - Claudette Pederson LPN - 04/04/2025 4:18 PM EST TC to Pt using plum packer Trish Shankar to inform pt that an updated TJ is needed to complete [place] paperwork. Pt reports as understanding and agrees to come into [facility] to complete. documented in this encounter Plan of Treatment Upcoming Encounters Date Type Department Care Team (Late st Contact Info) Description 06/02/2025 1:30 PM EST Office Visit [facility] ADULT DENTAL [address] [place] [address] Weston Phillips DDS [address] [place] [address] 09/09/2025 9:30 AM EDT Office Visit [facility] OPTOMETRY [address] [place] [address] Ayesha Leal, OD [address] [place] [address] documented as of this encounter Goals Goal Patient Goal Type Associated Problems Recent Progress Patient-Stated? Author Help patients manage their type 2 diabetes Care Plan Help patients manage their type 2 diabetes No [place], Claudette, BOILER WASHER Weekly blood pressure task Care Plan Weekly blood pressure task No [place], Claudette, BOILER WASHER Help patients manage their type 2 diabetes Care Plan Help patients manage their type 2 diabetes No [place], Claudette, BOILER WASHER Patient has chronic kidney disease Care Plan Patient has chronic kidney disease No [place], Claudette, BOILER WASHER Help patients manage their type 2 diabetes Care Plan Help patients manage their type 2 diabetes No [place], Claudette, BOILER WASHER Patient has diabetic neuropathy Care Plan Patient has diabetic neuropathy No [place], Claudette, BOILER WASHER Weekly blood pressure task Care Plan Weekly blood pressure task No [place], Claudette, BOILER WASHER Weekly blood pressure task Care Plan Weekly blood pressure task No [place], Claudette, BOILER WASHER Patient has chronic kidney disease Care Plan Patient has chronic kidney disease No [place], Claudette, BOILER WASHER Patient has chronic kidney disease Care Plan Patient has chronic kidney disease No Dacia, Claudette, BOILER WASHER Patient has diabetic neuropathy Care Plan Patient has diabetic neuropathy No Dacia [place], BOILER WASHER Patient has diabetic neuropathy Care Plan Patient has diabetic neuropathy No [place], Claudette, BOILER WASHER Weekly blood pressure task Care Plan Weekly [...] Weekly blood pressure task No [place], Claudette, BOILER WASHER Weekly blood pressure task Care Plan Weekly blood pressure task No Dacia, Claudette, BOILER WASHER Weekly blood pressure task Care Plan Weekly blood pressure task No [place], Claudette, BOILER WASHER Patient has chronic kidney disease Care Plan Patient has chronic kidney disease No [place], Claudette, BOILER WASHER Patient has chronic kidney disease Care Plan Patient has chronic kidney disease No [place], Claudette, BOILER WASHER Patient has chronic kidney disease Care Plan Patient has chronic kidney disease No [place], Claudette, BOILER WASHER Patient has diabetic neuropathy Care Plan Patient has diabetic neuropathy No [place], Claudette, BOILER WASHER Patient has diabetic neuropathy Care Plan Patient has diabetic neuropathy No [place], Claudette, BOILER WASHER Patient has diabetic neuropathy Care Plan Patient has diabetic neuropathy No [place], Claudette, BOILER WASHER Weekly blood pressure task Care Plan Weekly blood pressure task No [place], Claudette, BOILER WASHER Weekly blood pressure task Care Plan Weekly blood pressure task No Dacia, Claudette, BOILER WASHER Weekly blood pressure task Care Plan Weekly blood pressure task No [place], Claudette, BOILER WASHER Patient has chronic kidney disease Care Plan Patient has chronic kidney disease No [place], Claudette, BOILER WASHER Patient has chronic kidney disease Care Plan Patient has chronic kidney disease No [place], Claudette, BOILER WASHER Patient has chronic kidney disease Care Plan Patient has chronic kidney disease No [place], Claudette, BOILER WASHER Patient has diabetic neuropathy Care Plan Patient has diabetic neuropathy No [place], Claudette, BOILER WASHER Patient has diabetic neuropathy Care Plan Patient has diabetic neuropathy No [place], Claudette, BOILER WASHER Patient has diabetic neuropathy Care Plan Patient has diabetic neuropathy No [place], Claudette, BOILER WASHER Weekly blood pressure task Care Plan Weekly blood pressure task No Phalen, Waleska, NURSE EDUCATOR Weekly blood pressure task Care Plan Weekly blood pressure task No [place], Waleska, NURSE EDUCATOR Weekly blood pressure task Care Plan Weekly blood pressure task No [place], Waleska, NURSE EDUCATOR Patient has chronic kidney disease Care Plan Patient has chronic kidney disease No [place]alen, Waleska, NURSE EDUCATOR Patient has chronic kidney disease Care Plan Patient has chronic kidney disease No Phalen, Waleska, NURSE EDUCATOR Patient has chronic kidney disease Care Plan Patient has chronic kidney disease No Phalen, Waleska, NURSE EDUCATOR Patient has diabetic neuropathy Care Plan Patient has diabetic neuropathy No Phalen, Waleska, NURSE EDUCATOR Patient has diabetic neuropathy Care Plan Patient has diabetic neuropathy No Phalen, Waleska, NURSE EDUCATOR Patient has diabetic neuropathy Care Plan Patient has diabetic neuropathy No [place], Waleska, NURSE EDUCATOR Weekly blood pressure task Care Plan Weekly [...] Care Plan Weekly blood pressure task No Ahbishek Murdock RN Weekly blood pressure task Care Plan Weekly blood pressure task No Abhishek Murdock RN Weekly blood pressure task Care Plan Weekly blood pressure task No Abhishek Murdock RN Patient has chronic kidney disease Care Plan Patient has chronic kidney disease No Murdock, Abhishek, RN Patient has chronic kidney disease Care Plan Patient has chronic kidney disease No Abhishek Murdock, RN Patient has chronic kidney disease Care Plan Patient has chronic kidney disease No Abhishek Murdock RN Patient has diabetic neuropathy Care Plan Patient has diabetic neuropathy No Abhishek Murdock, RN Patient has diabetic neuropathy Care Plan Patient has diabetic neuropathy No Abhishek Murdock, RN Patient has diabetic neuropathy Care Plan Patient has diabetic neuropathy No Abhishek Murdock, FARSHAD Weekly blood pressure task Care Plan Weekly blood pressure task No Ben Wilkinson Weekly blood pressure task Care Plan Weekly blood pressure task No Ben Wilknison Weekly blood pressure task Care Plan Weekly blood pressure task No Ben Wilkinson Patient has chronic kidney disease Care Plan Patient has chronic kidney disease No Ben Wilkinson Patient has chronic kidney disease Care Plan Patient has chronic kidney disease No Ben Wilkinson Patient has chronic kidney [...] kidney disease No Ben Wilkinson Patient has chronic kidney disease Care Plan Patient has chronic kidney disease No Ben Wilkinson Patient has chronic kidney [...] Care Plan Weekly blood pressure task No Ashlyn Waleska, NURSE EDUCATOR Weekly blood pressure task Care Plan Weekly blood pressure task No Ashlyn Waleska, NURSE EDUCATOR Weekly blood pressure task Care Plan Weekly blood pressure task No Phalarcelia Waleska, NURSE EDUCATOR Patient has chronic kidney disease Care Plan Patient has chronic kidney disease No Ashlyn Waleska, NURSE EDUCATOR Patient has chronic kidney disease Care Plan Patient has chronic kidney disease No Waleska Goldberg, NURSE EDUCATOR Patient has chronic kidney disease Care Plan Patient has chronic kidney disease No Phalen, Waleska, NURSE EDUCATOR Patient has diabetic neuropathy Care Plan Patient has diabetic neuropathy No Phalen, Waleska, NURSE EDUCATOR Patient has diabetic neuropathy Care Plan Patient has diabetic neuropathy No Phalen, Waleska, NURSE EDUCATOR Patient has diabetic neuropathy Care Plan Patient has diabetic neuropathy No Phalen, Waleska, NURSE EDUCATOR Weekly blood pressure task Care Plan Weekly blood pressure task No [place], Claudette, BOILER WASHER Weekly blood pressure task Care Plan Weekly blood pressure task No Dacia, Claudette, BOILER WASHER Weekly blood pressure task Care Plan Weekly blood pressure task No [place], Claudette, BOILER WASHER Patient has chronic kidney disease Care Plan Patient has chronic kidney disease No [place], Claudette, BOILER WASHER Patient has chronic kidney disease Care Plan Patient has chronic kidney disease No [place], Claudette, BOILER WASHER Patient has chronic kidney disease Care Plan Patient has chronic kidney disease No [place], Claudette, BOILER WASHER Patient has diabetic neuropathy Care Plan Patient has diabetic neuropathy No [place], Claudette, BOILER WASHER Patient has diabetic neuropathy Care Plan Patient has diabetic neuropathy No [place], Claudette, BOILER WASHER Patient has diabetic neuropathy Care Plan Patient has diabetic neuropathy No [place], Claudette, BOILER WASHER Weekly blood pressure task Care Plan Weekly [...] Plan Patient has chronic kidney disease No Rubilar, West, PharmD Patient has diabetic neuropathy Care Plan Patient has diabetic neuropathy No West Rojas PharmD Patient has diabetic neuropathy Care Plan Patient has diabetic neuropathy No West Rojas PharmD Patient has diabetic neuropathy Care Plan Patient has diabetic neuropathy No West Rojas PharmD Weekly blood pressure task Care Plan Weekly blood pressure task No West Rojas PharmD Weekly blood pressure task Care Plan Weekly blood pressure task No West Rojas PharmD Weekly blood pressure task Care Plan Weekly blood pressure task No West Rojas PharmD Patient has chronic [...] Coronary atherosclerosis of unspecified type of vessel, [place] or graft Chronic systolic heart failure (HCC) [...] documented as of this encounter Care Teams 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
--- OUTSIDE RECORDS SUMMARY | 2025-04-05 15:53 | XMS_ITS | Clinical Summary ---
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 Name Role Phone Waleska Goldberg AMERICO Primary Care Provider [phone] Abhishek Murdock RN Unavailable [phone] Ben Wilkinson Unavailable Allergies No known active allergies Medications fluticasone (Flonase) 50 MCG/ACT nasal sprayIndications :Nasal [...] by mouth daily Active Continuous Blood Gluc Outdoor Adventure Instructor (FreeStyle Alfredo 2 [place]) deviceIndication s:Type 2 diabetes mellitus without complication, [...] 023 Active Blood Glucose Monitoring Suppl (FreeStyle [place] Lite) w/Device kitIndications:T ype 2 diabetes mellitus without complication, with long-term current use of insulin ([facility]) Use to test blood sugar [...] FOR PAIN 100 g 2 024 Active insulin aspart (NovoLOG FLEXPEN) 100 UNIT/ML penIndications:T ype 2 diabetes mellitus without complication, with long-term current use of insulin ([facility]) INJECT 6 UNITS SUBCUTANEOUSLY 3 TIMES DAILY WITH MEALS AND USE 8 UNITS IF BG>200. 30 mL 2 024 Active Fiber-Lax 625 MG tablet Take 1 tablet by mouth every 6 (six) hours during the day. 024 Active ammonium lactate (Amlactin) 12 % creamIndications :Xerosis of skin Apply topically if needed for dry skin. Apply to feet 1-2 times per day. 140 g 3 025 2025 Active metFORMIN (Glucophage) 500 MG tabletIndication s:Type 2 diabetes mellitus without complication, with long-term current use of insulin ([facility]) TAKE 1 TABLET BY MOUTH TWICE DAILY IN THE MORNING AND IN THE EVENING WITH MEALS 180 tablet 3 025 Active TRUEplus Lancets 33G miscIndications: Type 2 diabetes mellitus without complication, with long-term current use of insulin ([facility]) USE TO TEST BLOOD SUGAR FOUR TIMES DAILY 100 each 025 Active carvedilol (Coreg) 3.125 MG tabletIndication s:Essential hypertension TAKE 1 TABLET BY MOUTH TWICE DAILY IN THE MORNING AND IN THE EVENING WITH FOOD 180 tablet 3 025 Active atorvastatin (Lipitor) 80 MG tabletIndication s:Other hyperlipidemia TAKE 1 TABLET BY MOUTH EVERY EVENING FOR CHOLESTEROL 90 tablet 3 025 Active glucose blood (FREESTYLE LITE) test stripIndications :Type 2 diabetes mellitus without complication, with long-term current use of insulin ([facility]) TEST BLOOD SUGAR FOUR TIMES DAILY AND NEEDED FOR BLOOD SUGAR <70 MG/dL 100 strip 11 03/02/20 11:50 AM EST Active finasteride (Proscar) 5 MG tablet Take 1 tablet by mouth Once per day. Do not crush, chew, or split. Active empagliflozin (Jardiance) 10 MGIndications:Ty pe 2 diabetes mellitus without complication, with long-term current use of insulin ([facility]) Take 1 tablet (10 mg) by mouth Once per day. 90 tablet 1 03/02/20 11:50 AM EST 025 2025 Active UltiGuard SafePack Pen Needle 32G X 4 MM miscIndications: Type 2 diabetes mellitus without complication, with long-term current use of insulin ([facility]) USE DIRECTED 6 TIMES PER DAY 100 each Active lidocaine-priloc madonna (Emla) 2.5-2.5 % cream Apply topically to right ankle as needed for pain up to 3 times per day 30 g 1 025 Active clopidogrel (Plavix) 75 MG tablet TAKE 1 TABLET BY MOUTH EVERY MORNING 90 tablet 1 Active Lantus SoloStar 100 UNIT/ML penIndications:T ype 2 diabetes mellitus treated with insulin ([facility]) INJECT 30 UNITS SUBCUTANEOUSLY ONCE DAILY 15 mL 4 03/07/20 4:14 PM EST Active albuterol 108 (90 Base) MCG/ACT inhalerIndicatio ns:History of wheezing Inhale 2 puffs every 4 (four) hours if needed for wheezing or shortness of breath. 18 g 1 03/07/20 25 4:14 PM EST 025 2025 Active acetaminophen (Acetaminophen 8 Hour) 650 MG ER tabletIndication s:Arthritis of both hips Take 1 tablet (650 mg) by mouth every 8 (eight) hours if needed (pain or fever). Do not crush, chew, or split. 90 tablet 2 03/07/20 4:14 PM EST 025 2025 Active aspirin (Aspirin Low Dose) 81 MG chewable tabletIndication s:Coronary arteriosclerosis ,Chronic systolic heart failure (HCC) TAKE 1 TABLET BY MOUTH EVERY MORNING 90 tablet 3 Active ezetimibe (Zetia) 10 MG tablet Take 1 tablet (10 mg) by mouth in the morning. 90 tablet 3 025 Active isosorbide mononitrate ER (Imdur) 60 MG 24 hr tabletIndication s:Coronary arteriosclerosis ,Chronic systolic heart failure (HCC) Take 1 tablet (60 mg) by mouth in the morning. 90 tablet 3 025 Active lisinopril 2.5 MG tabletIndication s:Coronary arteriosclerosis ,Chronic systolic heart failure (HCC) Take 1 tablet (2.5 mg) by mouth at bedtime. 90 tablet 3 025 Active aspirin (Aspirin Low Dose) 81 MG chewable tabletIndication s:Coronary arteriosclerosis ,Chronic systolic heart failure (HCC) TAKE 1 TABLET BY MOUTH EVERY MORNING 90 tablet 3 024 2024 Discontinued(R eorder (will not trigger notification to Pharmacy)) isosorbide mononitrate ER (Imdur) 60 MG 24 hr tabletIndication s:Coronary arteriosclerosis ,Chronic systolic heart failure (HCC) TAKE 1 TABLET BY MOUTH EVERY MORNING 90 tablet 3 024 2024 Discontinued(R eorder (will not trigger notification to Pharmacy)) lisinopril 2.5 MG tabletIndication s:Coronary arteriosclerosis ,Chronic systolic heart failure (HCC) TAKE 1 TABLET BY MOUTH AT BEDTIME 90 tablet 3 024 2024 Discontinued(R eorder (will not trigger notification to Pharmacy)) ezetimibe (Zetia) 10 MG tablet TAKE 1 TABLET BY MOUTH EVERY MORNING 90 tablet 3 024 2024 Discontinued(R eorder (will not trigger notification to Pharmacy)) isosorbide mononitrate ER (Imdur) 60 MG 24 hr tabletIndication s:Coronary arteriosclerosis ,Chronic systolic heart failure (HCC) Take 1 tablet (60 mg) by mouth in the morning. 90 tablet 3 025 2024 Discontinued(R eorder (will not trigger notification to Pharmacy)) Active Problems Patient Care Coordination No te Formatting of this note migh t be different from the original. C3/CM Yesenia Page RN Problem Noted Date Diagnosed Date Bladder outlet obstruction 03/04/2025 Calcium oxalate calculus 03/04/2025 Chronic constipation 03/04/2025 Overview (03/04/2025): Encourage fiber Hematoma 03/04/2025 Trigger finger of right thumb 03/04/2025 Assessment & Plan (03/04/2025 1:52 PM EST): - Followed by [facility] - evaluation September 2024 by MARYBEL [...] with routine healing Overview (05/23/2024): Following with [facility] - Dr. Monahan Assessment & Plan (08/17/2024 2:51 PM EDT): - Completed physical therapy - Referral to [facility] placed for further eval - Pain [...] ED) Hyperlipidemia 04/08/2024 Overview (10/28/2024): Following with [facility] Continue atorvastatin 80mg nightly Continue PCSK9 [...] Previous trials: prednisone, avoid NSAIDs with hx ND, APAP not effective. - Plan: short course [...] knee 08/30/2023 Overview (04/16/2024): - Followed by [facility] - Plan for trial knee sleeve and activity modification. If no improvement with conservative measures, may consider injections - Consult Jan 2024: received steroid injection. Not good surgical candidate. Assessment & Plan (01/11/2024 5:18 PM EDT): Currently described as one of most painful sites of LLE. No red flag symptoms on exam today. Called and scheduled for appt with [facility] in 2 weeks. ED precautions sooner [...] to Neurosurgery on 08/12/23 - Referral to [facility] sent 08/17/24 Assessment & Plan (10/28/2024 2:09 PM EDT): - Short course of Percocet to be used sparingly for severe pain. Reviewed med safety and SE. Assessment & Plan (08/17/2024 2:54 PM EDT): -Referral to [facility] sent 08/17/24 Assessment & Plan (08/30/2023 10:38 AM EDT): -Message sent to referrals team 08/30/23 to follow up on pending referral Assessment & Plan (07/31/2023 8:47 PM EDT): Cont symptomatic management Reviewed ED/urgent care precautions Healthcare maintenance 05/26/2023 Overview (04/16/2024): Dental: [facility] Dental Optometry: 10/07/22: SHELBY w/o diabetic retinopathy or diabetic macular edema. Colonoscopy: 05/30/22 at [facility] - Dr. Harrison. Plan to repeat in 1-2 years d/t poor prep. Referral to re-establish with GI sent 04/16/24. Assessment & Plan (08/30/2023 10:39 AM EDT): Declines COVID & PCV20 vaccines 08/29/23 Benign prostatic hyperplasia with urinary freque ncy 05/13/2022 Assessment & Plan (07/31/2023 7:22 PM EDT): Following with [facility] - Dr. Arboleda Continues with tamsulosin 0.4mg nightly Chronic pelvic pain in male 05/13/2022 Overview (08/17/2024): -Following with [facility] -Previous recommendation for pelvic floor physical therapy (pt not interested) -Continues with intermittent, chronic pelvic pain. Currently asymptomatic -02/14/23: US retroperitoneal ordered by AMERICO Lares. 1. Nephrocalcinosis. No hydronephrosis. 2. Enlarged prostate. Mild diffuse thickening and mucosal irregularity of the bladder wall. 07/13/2024: [facility]. Cystoscopy 06/07 open bladder neck. History [...] heart failure 04/17/2018 Overview (10/28/2024): -Followed by [facility] cardi[facility]. Dr. Esteves/[facility] THERAPY CLINIC[facility] [place] -Hx of cardiac catheterization in [place] due to ND that led to coronary artery bypass surgery -Had further cardiac cath in [place] in 2018 that led to stenting of OM2 branch. -Pt to continue anticoagulation and nitroglycerin as needed through Cards Assessment & Plan (07/19/2024 4:43 PM EDT): - Given extensive cardiac history, transferred urgently to [facility] ED for further eval Coronary arteriosclerosis 04/17/2018 Diabetic neuropathy 04/17/2018 Essential hypertension 04/17/2018 Generalized ischemic myocardial dysfunction 07/2018 S/P CABG x 5 04/17/2018 Type 2 diabetes mellitus 04/17/2018 Overview (03/04/2025): -Previously followed by [facility] for management, although provider left and have not yet established with new provider -Reports BG readings usually ~120 fasting, and then around 100-200 throughout the day -Current regimen includes: -30 units nightly lantus -Novolog 6 units before meals -metformin 500mg BID -Jardiance 10mg daily -CGM approved, plan for initial teaching and device application 08/14/22 at [facility] Pharmacy -Podiatry: referral placed 06/05/22 -Optometry: last CEE September 2022 ([facility]) Lab Results Component [...] 03/02/2024 Rheumatoid arthritis involvi ng multiple sites ([facility]) 08/17/2022 08/17/2022 Overview (08/17/2022): Followed by [facility] Abdominal pain of unknown cause 05/13/2022 08/30/2023 UTI symptoms 05/13/2022 06/16/2022 Pain in joint of left shoulder 11/19/2018 06/16/2022 Inguinal lymphadenopathy 08/27/201808/2022 Trigger ring finger of right hand 06/08/2018 06/16/2022 Encounters Date Type Department Care Team Description 04/05/2025 Orders Only [facility] External Provider, [facility] 04/05/2025 Patient Outreach [address] [address] Waleska Goldberg FNP Care Coordination (C3/MARBELLA Wilkinson, initial assessment scheduled ) 04/01/2025 Patient Outreach [address] [address] Waleska Goldberg FNP Care Coordination (C3/CHW Ben Wilkinson, TC #[id number] ) 04/01/2025 Telephone [facility] [address] [place] [address] Aileen Ford, RN 03/31/2025 Telephone [facility] [address] [place], [place] [id number] Aileen Ford, RN Med Refill 03/31/[address] [address] Waleska Goldberg FNP Med Refill 03/28/[address] [address] Phalen, Waleska, WEB ANALYTICS SPECIALIST Coronary arteriosclerosis; Chronic systolic heart failure (HCC) 03/28/[address] [address] Phalen, Waleska, WEB ANALYTICS SPECIALIST Coronary arteriosclerosis; Chronic systolic heart failure (HCC) 03/28/[address] [address] Phalen, Waleska, WEB ANALYTICS SPECIALIST 03/23/2025 Orders Only GENERIC EXTERNAL DATA DEPARTMENT Provider, Generic External Data 03/21/[address] [address] Phalen, Waleska, WEB ANALYTICS SPECIALIST 03/18/2025 Results Follow-Up [facility] [address] [place] [address] Phalen, Waleska, WEB ANALYTICS SPECIALIST XR Lumbar Spine 2-3 Views 03/08/2025 Patient Outreach [address] [address] Phalen, Waleska, WEB ANALYTICS SPECIALIST Care Coordination (C3/MARBELLA Wilkinson, initial outreach_lvm) 03/08/2025 Patient Outreach [address] [address] Phalen, Waleska, WEB ANALYTICS SPECIALIST Care Coordination (C3/MARBELLA Wilkinson, Chart review ) 03/08/2025 Patient Outreach [facility] [address] [place] [id number] Phalen, Waleska, WEB ANALYTICS SPECIALIST Care Coordination (C3CM- chart review) 03/08/2025 Patient Outreach [address] [address] Phalen, Waleska, WEB ANALYTICS SPECIALIST 03/06/2025 Orders Only GENERIC EXTERNAL DATA DEPARTMENT Provider, Generic External Data 03/04/2025 10:00 AM EST Office Visit [facility] [address] [place] [address] Phalen, Waleska, WEB ANALYTICS SPECIALIST Arthritis of both hips (Primary Dx); Type 2 diabetes mellitus without complication, with long-term current use of insulin (HCC); Encounter for immunization; Pain of right hip; Colon cancer screening; Trigger finger of right thumb; History of wheezing; Nephrolithiasis; Abdominal pain, unspecified abdominal location 03/04/2025 8:45 AM EST Office Visit [facility] ADULT DENTAL [address] [place] [id number] Omaira Means Encounter for dental examination (Primary Dx); Tooth missing; Dental caries; Bruxism; Dental plaque; Dental calculus 03/04/2025 Travel 03/03/[address] [address] Claudette Pederson LPN 03/02/[address] [address] Waleska Goldberg FNP 02/26/2025 Orders Only GENERIC EXTERNAL DATA DEPARTMENT Provider, Generic External Data 02/25/2025 Patient Outreach [address] [address] Waleska Goldberg FNP Pre-visit Planning (Pre visit planning unable to LVM ) 02/25/[address] [address] Waleska Goldberg FNP 02/07/2025 Patient Outreach [address] [address] Waleska Goldberg FNP Pre-visit Planning (SDNE screening completed on 08/09) 01/19/[address] [id number] Waleska Goldberg FNP Type 2 diabetes mellitus treated with insulin (HCC) 01/07/2025 Patient Outreach [facility] [address] [place], [place] [phone] Waleska Goldberg FNP Care Management (C3CM- F/U call) from Last 3 Months Immunizations Immunization Administration [...] 03/04/2025 10:24 AM EST Plan of Treatment Upcoming Encounters Date Type Department Care Team (Late st Contact Info) Description 06/02/2025 1:30 PM EST Office Visit [facility] ADULT DENTAL [address] [place] [address] Weston Phillips, DDS [address] [place] [address] 09/09/2025 9:30 AM EDT Office Visit [facility] OPTOMETRY [address] [place] [address] Ayesha Leal, OD [address] [place] [address] Health Maintenance Due Date Last Done Comments CT Colonography 1965 FIT DNA/Cologuard 1965 FIT 1965 FOBT 1965 HIV Screening 1965 Sigmoidoscopy 1965 Diabetes: Foot Exam 1975 Hepatitis C Screening 1983 RSV Patients and Patients Aged 60 years [...] patient's age to complete this topic Hepatitis B Vaccines Aged Out No long er eligible [...] their type 2 diabetes No Romana Pedersone BANKMAN Weekly blood pressure task Care Plan Weekly blood pressure task No Romana Pedersone, BANKMAN Help patients manage their type 2 diabetes Care Plan Help patients manage their type 2 diabetes No Radha Pedersondie, BANKMAN Patient has chronic kidney disease Care Plan Patient has chronic kidney disease No Radha Pedersondie, BANKMAN Help patients manage their type 2 diabetes Care Plan Help patients manage their type 2 diabetes No Radha Pedersondie, BANKMAN Patient has diabetic neuropathy Care Plan Patient has diabetic neuropathy No Romana Pedersone, BANKMAN Weekly blood pressure task Care Plan Weekly blood pressure task No Radha Pedersondie, BANKMAN Weekly blood pressure task Care Plan Weekly blood pressure task No Radha Pedersondie, BANKMAN Patient has chronic kidney disease Care Plan Patient has chronic kidney disease No Romana Pedersone, BANKMAN Patient has chronic kidney disease Care Plan Patient has chronic kidney disease No Radha Pedersondie, BANKMAN Patient has diabetic neuropathy Care Plan Patient has diabetic neuropathy No Radha Pedersondie, BANKMAN Patient has diabetic neuropathy Care Plan Patient has diabetic neuropathy No Romana Pedersone, BANKMAN Weekly blood pressure task Care Plan Weekly [...] Weekly blood pressure task No Radha Pedersondie, BANKMAN Weekly blood pressure task Care Plan Weekly blood pressure task No Radha Pedersondie, BANKMAN Weekly blood pressure task Care Plan Weekly blood pressure task No Tyler, Claudette, BANKMAN Patient has chronic kidney disease Care Plan Patient has chronic kidney disease No Tyler, Claudette, BANKMAN Patient has chronic kidney disease Care Plan Patient has chronic kidney disease No Dacia, Claudette, BANKMAN Patient has chronic kidney disease Care Plan Patient has chronic kidney disease No Tyler, Claudette, BANKMAN Patient has diabetic neuropathy Care Plan Patient has diabetic neuropathy No Dacia, Claudette, BANKMAN Patient has diabetic neuropathy Care Plan Patient has diabetic neuropathy No Tyler, Claudette, BANKMAN Patient has diabetic neuropathy Care Plan Patient has diabetic neuropathy No Dacia, Claudette, BANKMAN Weekly blood pressure task Care Plan Weekly blood pressure task No Tyler, Claudette, BANKMAN Weekly blood pressure task Care Plan Weekly blood pressure task No Tyler, Claudette, BANKMAN Weekly blood pressure task Care Plan Weekly blood pressure task No Dacia, Claudette, BANKMAN Patient has chronic kidney disease Care Plan Patient has chronic kidney disease No Tyler, Claudette, BANKMAN Patient has chronic kidney disease Care Plan Patient has chronic kidney disease No Tyler, Claudette, BANKMAN Patient has chronic kidney disease Care Plan Patient has chronic kidney disease No Tyler, Claudette, BANKMAN Patient has diabetic neuropathy Care Plan Patient has diabetic neuropathy No Dacia, Claudette, BANKMAN Patient has diabetic neuropathy Care Plan Patient has diabetic neuropathy No Dacia, Claudette, BANKMAN Patient has diabetic neuropathy Care Plan Patient has diabetic neuropathy No Tyler, Claudette, BANKMAN Weekly blood pressure task Care Plan Weekly blood pressure task No Phalen, Waleska, WEB ANALYTICS SPECIALIST Weekly blood pressure task Care Plan Weekly blood pressure task No Phalen, Waleska, WEB ANALYTICS SPECIALIST Weekly blood pressure task Care Plan Weekly blood pressure task No Phalen, Waleska, WEB ANALYTICS SPECIALIST Patient has chronic kidney disease Care Plan Patient has chronic kidney disease No Phalen, Waleska, WEB ANALYTICS SPECIALIST Patient has chronic kidney disease Care Plan Patient has chronic kidney disease No Phalen, Waleska, WEB ANALYTICS SPECIALIST Patient has chronic kidney disease Care Plan Patient has chronic kidney disease No Phalen, Waleska, WEB ANALYTICS SPECIALIST Patient has diabetic neuropathy Care Plan Patient has diabetic neuropathy No Phalen, Waleska, WEB ANALYTICS SPECIALIST Patient has diabetic neuropathy Care Plan Patient has diabetic neuropathy No Phalen, Waleska, WEB ANALYTICS SPECIALIST Patient has diabetic neuropathy Care Plan Patient has diabetic neuropathy No Phalen, Waleska, WEB ANALYTICS SPECIALIST Weekly blood pressure task Care Plan Weekly blood pressure task No Menas, Omaira Weekly blood pressure task Care Plan [...] Care Plan Weekly blood pressure task No Waleska Goldberg WEB ANALYTICS SPECIALIST Weekly blood pressure task Care Plan Weekly blood pressure task No Waleska Goldberg, WEB ANALYTICS SPECIALIST Weekly blood pressure task Care Plan Weekly blood pressure task No Tk Goldbergle, WEB ANALYTICS SPECIALIST Patient has chronic kidney disease Care Plan Patient has chronic kidney disease No Waleska Goldberg WEB ANALYTICS SPECIALIST Patient has chronic kidney disease Care Plan Patient has chronic kidney disease No Phalen, Waleska, WEB ANALYTICS SPECIALIST Patient has chronic kidney disease Care Plan Patient has chronic kidney disease No Phalen, Waleska, WEB ANALYTICS SPECIALIST Patient has diabetic neuropathy Care Plan Patient has diabetic neuropathy No Phalen, Waleska, WEB ANALYTICS SPECIALIST Patient has diabetic neuropathy Care Plan Patient has diabetic neuropathy No Phalen, Waleska, WEB ANALYTICS SPECIALIST Patient has diabetic neuropathy Care Plan Patient has diabetic neuropathy No Phalen, Waleska, WEB ANALYTICS SPECIALIST Weekly blood pressure task Care Plan Weekly blood pressure task No Dacia, Claudette, BANKMAN Weekly blood pressure task Care Plan Weekly blood pressure task No Tyler, Claudette, BANKMAN Weekly blood pressure task Care Plan Weekly blood pressure task No Dacia, Claudette, BANKMAN Patient has chronic kidney disease Care Plan Patient has chronic kidney disease No Dacia, Claudette, BANKMAN Patient has chronic kidney disease Care Plan Patient has chronic kidney disease No Tyler, Claudette, BANKMAN Patient has chronic kidney disease Care Plan Patient has chronic kidney disease No Dacia, Claudette, BANKMAN Patient has diabetic neuropathy Care Plan Patient has diabetic neuropathy No Dacia, Claudette, BANKMAN Patient has diabetic neuropathy Care Plan Patient has diabetic neuropathy No Dacia, Claudette, BANKMAN Patient has diabetic neuropathy Care Plan Patient has diabetic neuropathy No Tyler, Claudette, BANKMAN Weekly blood pressure task Care Plan Weekly [...] Care Plan Weekly blood pressure task No Vishnu De Souza Weekly blood pressure task Care Plan Weekly blood pressure task No Vishnu De Souza Weekly blood pressure task Care Plan Weekly blood pressure task No Vishnu De Souza Patient has chronic kidney disease Care Plan Patient has chronic kidney disease No Vishnu De Souza Patient has chronic kidney disease Care Plan Patient has chronic kidney disease No Vishnu De Souza Patient has chronic kidney disease Care Plan Patient has chronic kidney disease No Vishnu De Souza Patient has diabetic neuropathy Care Plan Patient has diabetic neuropathy No Vishnu De Souza Patient has diabetic neuropathy Care Plan Patient has diabetic neuropathy No Vishnu De Souza Patient has diabetic neuropathy Care Plan Patient has diabetic neuropathy No Vishnu De Souza Weekly blood pressure task Care Plan Weekly blood pressure task No Aileen Ford RN Weekly blood pressure task Care Plan Weekly blood pressure task No Aileen Ford RN Weekly blood pressure task Care Plan Weekly blood pressure task No Aielen Ford RN Patient has chronic kidney disease Care Plan Patient has chronic kidney disease No Aileen Ford RN Patient has chronic kidney disease Care Plan Patient has chronic kidney disease No Aileen Ford RN Patient has chronic kidney disease Care Plan Patient has chronic kidney disease No Aileen Ford RN Patient has diabetic neuropathy Care Plan Patient has diabetic neuropathy No Aileen Ford RN Patient has diabetic neuropathy Care Plan Patient has diabetic neuropathy No Aileen Ford RN Patient has diabetic neuropathy Care Plan Patient has diabetic neuropathy No Aileen Ford RN Weekly blood pressure task Care Plan Weekly blood pressure task No Aileen Ford RN Weekly blood pressure task Care Plan Weekly blood pressure task No Aileen Ford RN Weekly blood pressure task Care Plan Weekly blood pressure task No Aileen Ford RN Patient has chronic kidney disease Care Plan Patient has chronic kidney disease No Aileen Ford RN Patient has chronic kidney disease Care Plan Patient has chronic kidney disease No Aileen Ford RN Patient has chronic kidney disease Care Plan Patient has chronic kidney disease No Aileen Ford RN Patient has diabetic neuropathy Care Plan Patient has diabetic neuropathy No Aileen Ford RN Patient has diabetic neuropathy Care Plan Patient has diabetic neuropathy No Aileen Ford RN Patient has diabetic neuropathy Care Plan Patient has diabetic neuropathy No Aileen Ford RN Weekly blood pressure task Care Plan [...] Plan Patient has chronic kidney disease No Tyler, Claudette, BANKMAN Patient has chronic kidney disease Care Plan Patient has chronic kidney disease No Claudette Pederson BANKMAN Patient has diabetic neuropathy Care Plan Patient has diabetic neuropathy No Claudette Pederson BANKMAN Patient has diabetic neuropathy Care Plan Patient has diabetic neuropathy No Romana Pedersone BANKMAN Patient has diabetic neuropathy Care Plan Patient has diabetic neuropathy No Romana Pedersone BANKMAN Weekly blood pressure task Care Plan Weekly blood pressure task No Ben Wilkinson Weekly blood pressure task Care Plan Weekly blood pressure task No Ben Wilkinson Weekly blood pressure task Care Plan Weekly blood pressure task No MinhBen Patient has chronic kidney disease Care Plan Patient has chronic kidney disease No Asher Wilkinsonjohn Patient has chronic kidney disease Care Plan Patient has chronic kidney disease No Asher Wilkinsonjohn Patient has chronic kidney disease Care Plan Patient has chronic kidney disease No Minh Ben Patient has diabetic neuropathy Care Plan Patient has diabetic neuropathy No Minh Ben Patient has diabetic neuropathy Care Plan Patient has diabetic neuropathy No Minh Ben Patient has diabetic neuropathy Care Plan Patient has diabetic neuropathy No Ben Wilkinson Procedures Procedure Name Priority Date/Time Associated Diagnosis Comments US RENAL COMPLETE Routine 04/05/2025 2:4 8 PM EST XR CHEST 2 VIEWS Routine 03/23/2025 10:3 3 AM EST HIGH SENSITIVITY TROPONIN I Routine 03/23/2025 10:27 AM EST MAGNESIUM Routine 03/23/2025 10:27 AM EST COMPREHENSIVE METABOLIC PANEL Routine 03/23/2025 10:27 AM EST CBC WITH AUTO DIFFERENTIAL Routine 03/23/2025 10:27 AM EST SARS COV2/INFLUENZA A/B AND RSV RNA QL NAAT Routine 03/23/2025 10:27 AM EST XR LUMBAR SPINE 2-3 VIEWS Routine 03/07/2025 2:52 PM EST Pain of right hip XR HIP 2 OR 3 VIEWS RIGHT Routine 03/07/2025 2:49 PM EST Pain of right hip CT ABDOMEN PELVIS WO CONTRAST Routine 03/06/2025 5:15 PM EST URINALYSIS, COMPLETE, WITH REFLEX TO CULTURE Routine 03/06/2025 4:22 PM EST POCT GLYCATED HEMOGLOBIN, TOTAL Routine 03/04/2025 10:28 AM EST Type 2 diabetes mellitus without complication, with long-term current use of insulin (HCC) POCT GLUCOSE (CPT-58818) Routine 03/04/2025 10:27 AM EST Type 2 [...] complication, with long-term current use of insulin ([facility]) INTRAORAL - COMPLETE SERIES OF RADIOGRAPHIC IMAGES Routine 06/26/2023 8:00 AM EDT HM COLONOSCOPY Routine 05/30/2022 9:04 PM EST from Last 3 Months or Most Recently Relevant to Health Maintenance Results * US Renal Complete (04/05/2025 2:48 PM EST) Anatomical Region Laterality Modality Kidney Ultrasound 04/05/2025 2:48 PM EST Narrative 04/05/2025 3:37 PM EST [facility] Adult Primary Care [address] [place] [address] [place] [address] Ultrasound Report Signed Patient: Barrett Goldman MR#: [id number] : 1965 Acct:[id number] Age/Sex: 60 / M ADM Date: 04/05/25 Loc: HO.HMGCX Attending Dr: Nigel Arboleda MD Ordering Physician: Nigel Arboleda MD Date of Service: 04/05/25 Procedure(s): US renal BI Accession Number(s): [id number] cc: Nigel Arboleda MD; Waleska Goldberg Reason for Exam: N20.0 - Calculus of kidney EXAMINATION: US KIDNEY BILATERAL HISTORY: N20.0 - Calculus of kidney TECHNIQUE: Real-time grayscale ultrasound imaging of the kidneys was performed and images were reviewed. COMPARISON: Comparison is made with the prior examination dated 02/14/2023. FINDINGS: Right kidney: The right kidney measures 11.1 x 5.5 x 6.3 cm. Renal parenchymal echotexture and thickness are normal. There are no masses. There is a probable 5 mm nonobstructing calculus at the lower pole which does not shadow. There is no hydronephrosis. Left Kidney: The left kidney measures 11.9 x 6.0 x 5.3 cm. Renal parenchymal echotexture and thickness are normal. There are no masses. There is no hydronephrosis or renal calculi. US/US renal BI IMPRESSION: Probable 5 mm nonobstructing calculus at the lower pole of the right kidney. Electronically signed by: Darnell Lovell MD 04/05/2025 03:33 PM EST Dictated By: Darnell Lovell MD Signed By: <Electronically signed by Darnell Lovell MD in OV> 04/05/25 1533 DD/ 1448 TD/TT: 04/05/25 1457 Preflight Mechanic: Procedure Note Donotuseinterpreter, Image - 04/05/2025 [facility] Adult Primary Care [facility] [place] [address] Ultrasound Report Signed Patient: Barrett Goldman AMR#: [id number] : 1965Acct:[id number] Age/Sex: 60 / MADM Date: 04/05/25 [facility] Dr: Nigel Arboleda MD Ordering Physician: Nigel Arboleda MD Date of Service: 04/05/25 Procedure(s): US renal BI Accession Number(s): [id number] cc: Nigle Arboleda MD; Waleska Goldberg Reason for Exam: N20.0 - Calculus of kidney EXAMINATION: US KIDNEY BILATERAL HISTORY: N20.0 - Calculus of kidney TECHNIQUE: Real-time grayscale ultrasound imaging of the kidneys was performed and images were reviewed. COMPARISON: Comparison is made with the prior examination dated 02/14/2023. FINDINGS: Right kidney: The right kidney measures 11.1 x 5.5 x 6.3 cm. Renal parenchymal echotexture and thickness are normal. There are no masses. There is a probable 5 mm nonobstructing calculus at the lower pole which does not shadow. There is no hydronephrosis. Left Kidney: The left kidney measures 11.9 x 6.0 x 5.3 cm. Renal parenchymal echotexture and thickness are normal. There are no masses. There is no hydronephrosis or renal calculi. US/US renal BI IMPRESSION: Probable 5 mm nonobstructing calculus at the lower pole of the right kidney. Electronically signed by: Darnell Loevll MD 04/05/2025 03:33 PM EST RP Dictated By: Darnell Lovell MD Signed By: <Electronically signed by Darnell Lovell MD in OV> 04/05/25 1533 DD/ 1448 TD/TT: 04/05/25 1457 Preflight Mechanic: us [facility] External Provider IMG US PROCEDURES Edited Result - Final * XR Chest 2 Views (03/23/2025 10:33 AM EST) Only the most recent of2 resultswithin the time period is included. Anatomical Region Laterality Modality Chest Radiographic Delores ging 03/23/2025 10:3 3 AM EST Narrative 03/23/2025 10:44 AM EST [address] [address] XRay Report Signed Patient: Barrett Goldman MR#: [id number] : 1965 Acct:[id number] Age/Sex: 60 / M ADM Date: 03/23/25 Loc: HO.ED Attending Dr: Ordering Physician: Torie Pozo Date of Service: 03/23/25 Procedure(s): XR chest 2V Accession Number(s): [id number] cc: Torie Pozo; Waleska Goldberg Reason for Exam: SOB EXAMINATION: XR CHEST CLINICAL INFORMATION: SOB COMPARISON: 02/26/2025 TECHNIQUE: 2 views of the chest were obtained. FINDINGS: Mediastinal wires are intact. 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 The heart size is within normal limits. Lungs are clear and well expanded. There is no sign of pleural effusion. The heart size is within normal limits. No bony abnormality is evident. XR/XR chest 2V IMPRESSION: No acute disease. Changes related to CABG. Electronically signed by: Leno King MD 03/23/2025 10:40 AM EST RP Dictated By: Leno King MD Signed By: <Electronically signed by Leno King MD in OV> 03/23/25 1040 DD/ 1033 TD/TT: 03/23/25 1036 Preflight Mechanic: Procedure Note Donotuseinterpreter, Image - 03/23/[address] [address] XRay Report Signed Patient: Barrett Goldman AMR#: [id number] : 1965Acct:[id number] Age/Sex: 60 / MADM Date: 03/23/25 Loc: HO.ED Attending Dr: Ordering Physician: Torie Pozo Date of Service: 03/23/25 Procedure(s): XR chest 2V Accession Number(s): [id number] cc: Torie Pozo; Waleska Goldberg Reason for Exam: SOB EXAMINATION: XR CHEST CLINICAL INFORMATION: SOB COMPARISON: 02/26/2025 TECHNIQUE: 2 views of the chest were obtained. FINDINGS: Mediastinal wires are intact. 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 The heart size is within normal limits. Lungs are clear and well expanded. There is no sign of pleural effusion. The heart size is within normal limits. No bony abnormality is evident. XR/XR chest 2V IMPRESSION: No acute disease. Changes related to CABG. Electronically signed by: Leno King MD 03/23/2025 10:40 AM EST Dictated By: Leno King MD Signed By: <Electronically signed by Leno King MD in OV> 03/23/25 1040 DD/ 1033 TD/TT: 03/23/25 1036 Preflight Mechanic: us [facility] External Provider IMG XR PROCEDURES Final Result * High Sensitivity Troponin I (03/23/2025 10:27 AM EST) TROPONIN I HIGH SENSITIVITY 3.3 <3.5 - 35.0 ng/L [facility] Comment:The Vu high sens itivity Troponin-I results should beused in conjunction with other diagnostic information suchas ECG, clinical observations and information, and patientsymptoms to aid in the diagnosis of ND. 03/23/2025 10:2 7 AM EST 03/23/2025 10:33 AM EST Generic External Data Provider LAB BLOOD ORDERAB LES Final Result Performing Organization Address [facility] de Phone Number [facility] [address] [place] [phone] * SARS-CoV-2 RNA, Influenza A/B, and RSV RNA, Ql NAAT (03/23/2025 10:27 AM EST) Pathologist [facility] Influenza A PCR NEGATIVE Negative [facility] Influenza B PCR NEGATIVE Negative [facility] Resp Syncy Virus RNA Qual PCR NEGATIVE Negative [facility] SARS COV2 PCR NEGATIVE Negative [facility] Comment:All test results mus t be correlated with clinical findings.Negative results do not preclude SARS-CoV2, influenza Avirus, influenza B virus and/or RSV infectionand should not be used as the sole basis for treatment orother patient management decisions. Negative results must becombined with clinical observations, patient history, andepidemiological information.This test has not been evaluated for monitoring treatment ofinfection.This test has been authorized by the FDA under an EmergencyUse Authorization (EUA) for use by authorized laboratories.Testing performed on the [employer] GeneXpert utilizingreal-time RT-PCR.All SARS CoV2 and positive influenza A/B results arereported to [facility]. 03/23/2025 10:2 7 AM EST 03/23/2025 10:33 AM EST us Generic External Data Provider LAB MICROBIOLOGY - GENERAL ORDERABLES Final Result Performing Organization Address [facility] Co de Phone Number [facility] [address] [place] [phone] * (ABNORMAL) CBC auto differential (03/23/2025 10:27 AM EST) Only the most recent of2 resultswithin the time period is included. Pathologist [facility] White Blood Count 6.6 4.8 - 10.8 X10*3/uL [facility] Red Blood Count 5.16 4.60 - 5.80 X10*6/uL [facility] Hemoglobin 16.5 14.0 - 18.0 g/dl [facility] Hematocrit 48.0 42.0 - 52.0 % [facility] Mean Corpuscular Volume 93.0 80.0 - 98.0 fL [facility] Mean Corpuscular Hemoglobin 32.0 27.0 - 33.0 pg [facility] Mean Corpuscular HGB Conc 34.4 31.0 - 36.0 g/dl [facility] Red Cell Distribution Width 12.3 11.0 - 16.0 % [facility] Platelet Count 149(L) 160 - 400 X10*3/uL [facility] Mean Platelet Volume 10.3 9.4 - 12.4 fL [facility] Neutrophils Percent Auto 74.5(H) 45 - 73 % [facility] Imm Gran Pct Auto 0.2 0.0 - 0.4 % [facility] Lymphocytes Percent Auto 13.7(L) 20 - 40 % [facility] Monocytes Percent Auto 7.9 2 - 11 % [facility] Eosinophils Percent Auto 3.2 0 - 4 % [facility] Basophils Percent Auto 0.5 0 - 2 % [facility] NRBC Pct Auto 0.0 0.0 - 0.2 /100WBC [facility] Neutrophils Absolute Auto 4.9 2.0 - 8.3 x10*3/uL [facility] Imm Gran Abs Auto 0.01 0.00 - 0.03 X10*3/uL [facility] Lymphocytes Absolute Auto 0.9(L) 1.2 - 4.9 X10*3/uL [facility] Monocytes Absolute Auto 0.5 0.1 - 1.2 X10*3/uL [facility] Eosinophils Absolute Auto 0.2 0.0 - 0.4 X10*3/uL [facility] Basophils Absolute Auto 0.0 0.0 - 0.2 X10*3/uL [facility] NRBC Abs Auto 0.000 0.0 - 0.012 X10*3/uL [facility] 03/23/2025 10:2 7 AM EST 03/23/2025 10:33 AM EST Generic External Data Provider LAB BLOOD ORDERAB LES Final Result Performing Organization Address [facility]/ZIP Co de Phone Number [facility] [address] [place] [phone] * Magnesium (03/23/2025 10:27 AM EST) Pathologist [facility] Magnesium 1.9 1.6 - 2.6 mg/dL [facility] 03/23/2025 10:2 7 AM EST 03/23/2025 10:33 AM EST Generic External Data Provider LAB BLOOD ORDERAB LES Final Result Performing Organization Address [facility] de Phone Number [facility] [address] [place] [phone] * (ABNORMAL) Comprehensive Metabolic Panel (03/23/2025 10:27 AM EST) Pathologist [facility] Sodium 141 135 - 145 mmol/L [facility] Potassium 3.8 3.3 - 5.1 mmol/L [facility] Chloride 109(H) 96 - 108 mmol/L [facility] Carbon Dioxide 25 22 - 29 mmol/L [facility] Anion Gap 11(L) 12 - 20 [facility] Urea Nitrogen (BUN) 15 9 - 16 mg/dL [facility] Creatinine, Serum 1.01 0.5 - 1.4 mg/dL [facility] Creatinine Clr Calc Pharmacy 77.7 [facility] Comment:eGFR (calculated fro m the MDRD study equation) and eCrCl(calculated from the Cockcroft-Gault equation) are based ondifferent parameters and may not yield comparable results.If eCrCl result is absurd, please check patient'sheight/weight. Estimated Glomerular Filt Rate >60 [facility] Comment:Chronic Kidney Disea se: Estimated GFR < 60 mL/min/1.85t0Knrxpb Kidney Disease: Estimated GFR < 15 mL/min/1.73m2 Glucose 206(H) 60 - 115 mg/dL [facility] Calcium 9.1 8.4 - 10.2 mg/dL [facility] Bilirubin, Total 1.6(H) 0.0 - 1.0 mg/dL [facility] Aspartate Amino Transferase 25 5 - 37 U/L [facility] Alanine Aminotransferase 20 0 - 40 U/L [facility] Total Protein 6.9 6.5 - 8.0 g/dL [facility] Albumin Level 4.4 3.5 - 5.0 g/dL [facility] Alkaline Phosphatase 129(H) 39 - 117 U/L [facility] 03/23/2025 10:2 7 AM EST 03/23/2025 10:33 AM EST us Generic External Data Provider LAB BLOOD ORDERAB LES Final Result Performing Organization Address City/State/[facility] Co de Phone Number [facility] [address] [place] [phone] * XR Lumbar Spine 2-3 Views (03/07/2025 2:52 PM EST) Anatomical Region Laterality Modality Spine, L-spine Radiographic Delores ging 03/07/2025 2:52 PM EST Narrative 03/08/2025 11:19 AM EST [address] [address] XRay Report Signed Patient: Barrett Goldman MR#: [id number] : 1965 Acct:[id number] Age/Sex: 59 / M ADM Date: 03/07/25 Loc: DANIEL Attending Dr: Waleska DRISCOLL Ordering Physician: Waleska Goldberg Date of Service: 03/07/25 Procedure(s): XR lumbar spine 2-3V Accession Number(s): [id number] cc: Waleska Goldberg Reason for Exam: 59 y/o with chronic hip pain T low back pain EXAMINATION: XR LUMBOSACRAL SPINE CLINICAL INFORMATION: 59 y/o with chronic hip pain T low back pain COMPARISON: None available. TECHNIQUE: Three views of the lumbosacral spine. FINDINGS: 5 nonrib-bearing lumbar type vertebrae. Normal lumbar lordosis. Vertebral body heights are maintained. No evidence of acute fracture or subluxation. Disc height loss at T11-12 redemonstrated. Small endplate spurring at multiple levels in the lumbar spine. Facet degeneration lower lumbar spine. No suspicious bony lesion. SI joints are symmetric. No abnormal soft tissue calcification. XR/XR lumbar spine 2-3V IMPRESSION: No acute findings. Mild lumbar spondylosis. Electronically signed by: William Anthony MD 03/08/2025 11:16 AM EST Dictated By: William Anthony MD Signed By: <Electronically signed by William Anthony MD in OV> 03/08/25 1116 DD/ 1452 TD/TT: 03/07/25 1455 Preflight Mechanic: VANDANA Procedure Note Donotuseinterpreter, Image - 03/08/2025 [place] [address] XRay Report Signed Patient: Barrett Goldman AMR#: [id number] : 1965Acct:[id number] Age/Sex: 59 / MADM Date: 03/07/25 Loc: HO.XRAY Attending Dr: Waleska DRISCOLL Ordering Physician: Waleska Goldberg Date of Service: 03/07/25 Procedure(s): XR lumbar spine 2-3V Accession Number(s): [id number] cc: Waleska Goldberg Reason for Exam: 59 y/o with chronic hip pain T low back pain EXAMINATION: XR LUMBOSACRAL SPINE CLINICAL INFORMATION: 59 y/o with chronic hip pain T low back pain COMPARISON: None available. TECHNIQUE: Three views of the lumbosacral spine. FINDINGS: 5 nonrib-bearing lumbar type vertebrae. Normal lumbar lordosis. Vertebral body heights are maintained. No evidence of acute fracture or subluxation. Disc height loss at T11-12 redemonstrated. Small endplate spurring at multiple levels in the lumbar spine. Facet degeneration lower lumbar spine. No suspicious bony lesion. SI joints are symmetric. No abnormal soft tissue calcification. XR/XR lumbar spine 2-3V IMPRESSION: No acute findings. Mild lumbar spondylosis. Electronically signed by: William Anthony MD 03/08/2025 11:16 AM EST Dictated By: William Anthony MD Signed By: <Electronically signed by William Anthony MD in OV> 03/08/25 1116 DD/ 1452 TD/TT: 03/07/25 145 Preflight Mechanic: VANDANA Waleska DRISCOLL IMG XR PROCEDURES Final Result * XR Hip 2 or 3 Views Right (03/07/2025 2:49 PM EST) Anatomical Region Laterality Modality Lower Extremities, Hip Right Radiograp hic Imaging 03/07/2025 2:49 PM EST Narrative 03/08/2025 10:49 AM EST [place] [address] XRay Report Signed Patient: Barrett Goldman MR#: [id number] : 1965 Acct:[id number] Age/Sex: 59 / M ADM Date: 03/07/25 Loc: HO.XRAY Attending Dr: Waleska DRISCOLL Ordering Physician: Waleska Goldberg Date of Service: 03/07/25 Procedure(s): XR hip RT min 2V Accession Number(s): [id number] cc: Waleska Goldberg Reason for Exam: 59 y/o with chronic hip pain EXAMINATION: XR HIP, RIGHT CLINICAL INFORMATION: 59 y/o with chronic hip pain COMPARISON: None available. TECHNIQUE: Two views of the right hip. FINDINGS: No acute fracture or dislocation. Alignment is anatomic. Lateral acetabular subchondral cyst. Hip joint space is maintained. No abnormal soft tissue calcification. XR/XR hip RT min 2V IMPRESSION: Mild right hip arthritis Electronically signed by: William Anthony MD 03/08/2025 10:46 AM EST RP Dictated By: William Anthony MD Signed By: <Electronically signed by William Anthony MD in OV> 03/08/25 1046 DD/ 1449 TD/TT: 03/07/25 1455 Preflight Mechanic: VANDANA Procedure Note Donotuseinterpreter, Image - 03/08/2025 [place] [address] XRay Report Signed Patient: Barrett Goldman AMR#: [id number] : 1965Acct:[id number] Age/Sex: 59 / MADM Date: 03/07/25 Loc: HO.XRAY Attending Dr: Waleska Goldberg WEB ANALYTICS SPECIALIST Ordering Physician: Waleska Goldberg Date of Service: 03/07/25 Procedure(s): XR hip RT min 2V Accession Number(s): [id number] cc: Waleska Goldberg Reason for Exam: 59 y/o with chronic hip pain EXAMINATION: XR HIP, RIGHT CLINICAL INFORMATION: 59 y/o with chronic hip pain COMPARISON: None available. TECHNIQUE: Two views of the right hip. FINDINGS: No acute fracture or dislocation. Alignment is anatomic. Lateral acetabular subchondral cyst. Hip joint space is maintained. No abnormal soft tissue calcification. XR/XR hip RT min 2V IMPRESSION: Mild right hip arthritis Electronically signed by: William Anthony MD 03/08/2025 10:46 AM EST RP Dictated By: William Anthony MD Signed By: <Electronically signed by William Anthony MD in OV> 03/08/25 1046 DD/ 1449 TD/TT: 03/07/25 1455 Preflight Mechanic: VANDANA Waleska Goldberg WEB ANALYTICS SPECIALIST IMG XR PROCEDURES Final Result * CT Abdomen Pelvis w/o Contrast (03/06/2025 5:15 PM EST) Anatomical Region Laterality Modality Body, Pelvis, Abdomen Computed T omography 03/06/2025 5:15 PM EST Narrative 03/06/2025 5:17 PM EST [place] [address] CT Scan Report Signed Patient: Barrett Goldman MR#: [id number] : 1965 Acct:[id number] Age/Sex: 59 / M ADM Date: 03/06/25 Loc: HO.ED Attending Dr: Ordering Physician: Celi Trent NP Date of Service: 03/06/25 Procedure(s): CT abdomen pelvis wo IV con Accession Number(s): [id number] cc: Waleska Goldberg WEB ANALYTICS SPECIALIST; Celi Trent NP Report Number: [id number]: Total DLP = 474.00 mGy-cm Reason for [...] throughout the colon. Calcified coronary atherosclerotic disease. [id number]-[id number] calcified atherosclerotic disease of the abdominal aorta. [...] in OV> 03/06/251715 DD/ 14 TD/TT: 03/06/251714 Preflight Mechanic: Procedure Note Armaanottrainterpreter, Image - 03/06/[address] [place] [address] [address] Scan Report Signed Patient: Barrett Goldman [facility]#: [id number] : 1965Acct:[id number] Age/Sex: 59 / MADM Date: 03/06/25 Loc: HO.ED Attending Dr: Ordering Physician: Celi Trent NP Date of Service: 03/06/25 Procedure(s): CT abdomen pelvis wo IV con Accession Number(s): [id number] cc: Waleska Goldberg WEB ANALYTICS SPECIALIST; Celi Trent NP Report Number: [id number]: Total DLP = 474.00 mGy-cm Reason for [...] throughout the colon. Calcified coronary atherosclerotic disease. Uutv-om-kucaxybu calcified atherosclerotic disease of the abdominal aorta. [...] in OV> 03/06/251715 DD/ 14 TD/TT: 03/06/251714 Preflight Mechanic: us [facility] External Provider IMG CT PROCEDURES Final Result * (ABNORMAL) Urinalysis, Complete, with Reflex to Culture (03/06/2025 4:22 PM EST) Only the most recent of2 resultswithin the time period is included. Color Urine Yellow [facility] Appearance Urine Clear [facility] PH 6.0 5.0 - 9.0 [facility] Glucose Urine UA >=1000(A) Negative mg/dL [facility] Urine Blood Negative Negative [facility] Specific [place] - Urine >=1.030(H) 1.005 - 1.025 [facility] Urine Protein Negative Neg-Trace mg/dL [facility] Urine Ketones Negative Negative mg/dL [facility] Nitrite Urine Negative Negative [facility] Leukocyte Esterase Urine Negative Negative [facility] RBC Urine 0-2 0 - 2 /HPF [facility] Urine WBC 0-5 0 - 5 /HPF [facility] Urine Squamous Epithelial Cell 0-2 0 - 2 /HPF [facility] Urine Bacteria None Seen None Seen [facility] Hyaline Casts, Urine 0-2 0 - 2 /LPF [facility] 03/06/2025 4:22 PM EST 03/06/2025 4:24 PM EST Narrative [facility] - 03/06/2025 4:35 PM EST Urine, Clean Catch us Generic External Data Provider LAB URINE ORDERAB LES Final Result [facility] [address] [place] [phone] * (ABNORMAL) POCT Hgb A1c (03/04/2025 10:28 AM EST) Hemoglobin A1C 6.6(A) 4.0 - 5.7 % QC Media Lot # [id number] Lot# Expiration Date ,,027 Blood 03/04/2025 10:2 8 AM EST Waleska Ashlyn [facility] POINT OF CARE TEST ENTER/EDIT ORDERABLES Final Result * POCT Glucose (03/04/2025 10:27 AM EST) Pathologist [facility] Glucose Blood, POC 121 60 - 200 mg/dL QC Media Lot # [id number] Lot# Expiration Date 082,026 Blood Capillary blood specimen / Unknown 03/04/2025 10:27 AM EST Waleska Goldberg [facility] POINT OF CARE TEST ENTER/EDIT ORDERABLES Final Result * CT Abdomen Pelvis w/ Contrast (02/26/2025 12:02 PM EST) Anatomical Region Laterality Modality Body, Pelvis, Abdomen Computed T omography 02/26/2025 12:0 2 PM EST Narrative 02/26/2025 12:04 PM EST [place] [address] CT Scan Report Signed Patient: Barrett Goldman MR#: [id number] : 1965 Acct:[id number] Age/Sex: 59 / M ADM Date: 02/26/25 Loc: .ED Attending Dr: Ordering Physician: Narinder Elliott MD Date of Service: 02/26/25 Procedure(s): CT abdomen pelvis w IV con Accession Number(s): [id number] cc: Narinder Elliott MD; Waleska Goldberg Report Number: [id number]: Total DLP = 476.00 mGy-cm Reason for [...] 02/26/25 1203 DD/ 1202 TD/TT: 02/26/25 1202 Preflight Mechanic: Procedure Note Donotuseinterpreter, Image - 02/26/[address] [address] [address] Scan Report Signed Patient: Barrett Goldman AMR#: [id number] : 1965Acct:[id number] Age/Sex: 59 / MADM Date: 02/26/25 Loc: HO.ED Attending Dr: Ordering Physician: Narinder Elliott MD Date of Service: 02/26/25 Procedure(s): CT abdomen pelvis w IV con Accession Number(s): [id number] cc: Narinder Elliott MD; Waleska Goldberg [facility] Report Number: [id number]: Total DLP = 476.00 mGy-cm Reason for [...] 02/26/25 1203 DD/ 1202 TD/TT: 02/26/25 1202 Preflight Mechanic: [facility] External Provider IMG CT PROCEDURES Edited Result - Final * Influenza A B2 ID NOW (Vu) (02/26/2025 8:09 AM EST) IDNOW SERIAL# [id number] [facility] Influenza A Negative Negative [facility] Influenza B2 Negative Negative [facility] Influenza A B2 Note See Note [facility] Comment:The Vu ID NOW In fluenza [...] GENERAL ORDERABLES Final Result Performing Organization Address [facility] Co de Phone Number [facility] [address] [place] [phone] * Strep A Nucleic Acid (02/26/2025 8:09 AM EST) IDNOW SERIAL# [id number] [facility] Strep A Nucleic Acid Negative Negative [facility] Comment:All test results mus t be [...] GENERAL ORDERABLES Final Result Performing Organization Address [facility] Co de Phone Number [facility] [address] [place] [phone] * (ABNORMAL) Lipid Panel, Standard (08/19/2024 8:35 AM EDT) Triglycerides 87 <150 mg/dL [facility] Comment:Desirable Triglyceri de: less than 150 mg/dLBorderline High Triglyceride 150-199 mg/dLHigh Triglyceride: 200-499 mg/dLVery High Triglyceride: greater than or equal to 5OO mg/dL Cholesterol 137 <200 mg/dL [facility] Comment:Desirable Cholestero l: less than 200 mg/dLBorderline High Cholesterol: 200-239 mg/dLHigh Cholesterol: greater than 239 mg/dL LDL Cholesterol Calculated 86 <100 mg/dL [facility] Comment:Desirable LDL: less than 100 mg/dLNear Optimal/Above Optimal LDL: 110- 129 mg/dLBorderline High LDL: 130-159 mg/dLHigh LDL: 160-189 mg/dLVery High LDL: greater than or equal to 190 mg/dL HDL Cholesterol 34(L) >40 mg/dL [facility] Comment:Desirable HDL: great er than 40 mg/dL Note: This HDL assay may give artificially low results in patients with liver disease. 08/19/2024 8:35 AM EDT 08/19/2024 8:35 AM EDT us Generic External Data Provider LAB BLOOD ORDERAB LES Final Result [facility] [address] [place] [phone] * Albumin, Random Urine W/Creatinine (08/19/2024 8:29 AM EDT) Creatinine, Urine 218.70 mg/dL [facility] Microalbumin Urine 12.0 mg/L [facility] Microalbum Creatinine Ratio Ur 5.4 <30 ug/mg cr [facility] Comment:Albumin/Creatinine R atio Reference Ranges: Normal: < 30 ug/mg creatinine Microalbuminuria: 30 - 300 ug/mg creatinineClinical Albuminuria: > 300 ug/mg creatinine Urine 08/19/2024 8:29 AM EDT 08/19/2024 8:50 AM EDT us Waleska Goldberg WEB ANALYTICS SPECIALIST LAB URINE ORDERABLES Final Res ult [facility] [address] [place] [phone] * Hm Colonoscopy (05/30/2022 9:04 PM [...] diabetic neuropathy 03/28/2025 Weekly blood pressure task 03/31/2025 Weekly blood pressure task 03/31/2025 Weekly blood pressure task 03/31/2025 Patient has chronic kidney disease 03/31/2025 Patient has chronic kidney disease 03/31/2025 Patient has chronic kidney disease 03/31/2025 Patient has diabetic neuropathy 03/31/2025 Patient has diabetic neuropathy 03/31/2025 Patient has diabetic neuropathy 03/31/2025 Weekly blood pressure task 03/31/2025 Weekly blood pressure task 03/31/2025 Weekly blood pressure task 03/31/2025 Patient has chronic kidney disease 03/31/2025 Patient has chronic kidney disease 03/31/2025 Patient has chronic kidney disease 03/31/2025 Patient has diabetic neuropathy 03/31/2025 Patient has diabetic neuropathy 03/31/2025 Patient has diabetic neuropathy 03/31/2025 Weekly blood pressure task 04/01/2025 Weekly blood pressure task 04/01/2025 Weekly blood pressure task 04/01/2025 Patient has chronic kidney disease 04/01/2025 Patient has chronic kidney disease 04/01/2025 Patient has chronic kidney disease 04/01/2025 Patient has diabetic neuropathy 04/01/2025 Patient has diabetic neuropathy 04/01/2025 Patient has diabetic neuropathy 04/01/2025 Weekly blood pressure task 04/01/2025 Weekly blood pressure task 04/01/2025 Weekly blood pressure task 04/01/2025 Patient has chronic kidney disease 04/01/2025 Patient has chronic kidney disease 04/01/2025 Patient has chronic kidney disease 04/01/2025 Patient has diabetic neuropathy 04/01/2025 Patient has diabetic neuropathy 04/01/2025 Patient has diabetic neuropathy 04/01/2025 Weekly blood pressure task 04/04/2025 Weekly blood pressure task 04/04/2025 Weekly blood pressure task 04/04/2025 Patient has chronic kidney disease 04/04/2025 Patient has chronic kidney disease 04/04/2025 Patient has chronic kidney disease 04/04/2025 Patient has diabetic neuropathy 04/04/2025 Patient has diabetic neuropathy 04/04/2025 Patient has diabetic neuropathy 04/04/2025 Weekly blood pressure task 04/05/2025 Weekly blood pressure task 04/05/2025 Weekly blood pressure task 04/05/2025 Patient has chronic kidney disease 04/05/2025 Patient has chronic kidney disease 04/05/2025 Patient has chronic kidney disease 04/05/2025 Patient has diabetic neuropathy 04/05/2025 Patient has diabetic neuropathy 04/05/2025 Patient has diabetic neuropathy 04/05/2025 Insurance [facility] ST[facility] ADULT Care Teams Chlorobutadiene 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
--- OUTSIDE RECORDS SUMMARY | 2025-04-05 15:53 | XMS_ITS | Encounter Summary ---
Author Organization [employer] Address [address] [place] [address] Care Team Providers Care Furniture Arranger Name Role Phone Waleska Goldberg [facility] Primary Care Provider [phone] Abhishek Murdock RN Unavailable [phone] Ben Wilkinson Unavailable Encounter Details Date Type Department Care Team (Late st Contact Info) Description 04/05/2025 Orders Only [facility] External Provider, [facility] Social History Tobacco Use Types Packs/Day Years [...] the past 12 months, has t he [employer], gas, oil or water [employer] threatened to shut off services in your [...] Description 06/02/2025 1:30 PM EST Office Visit [facility] [address] [place] [address] Weston Phillips DDS [address] [place] [address] 09/09/2025 9:30 AM EDT Office Visit [facility] OPTOMET[facility] [address] [place] [address] Tarka, Ayesha, OD [address] [place] [address] documented as of this encounter Goals Goal [...] Care Plan Weekly blood pressure task No [place], Claudette, PIECE GOODS CLERK Patient has chronic kidney disease Care Plan Patient has chronic kidney disease No Dacia, Claudette, PIECE GOODS CLERK Patient has chronic kidney disease Care Plan Patient has chronic kidney disease No [place], Claudette, PIECE GOODS CLERK Patient has diabetic neuropathy Care Plan Patient has diabetic neuropathy No [place], Claudette, PIECE GOODS CLERK Patient has diabetic neuropathy Care Plan Patient has diabetic neuropathy No Dacia, Claudette, PIECE GOODS CLERK Weekly blood pressure task Care Plan Weekly [...] Weekly blood pressure task No Dacia, Claudette, PIECE GOODS CLERK Weekly blood pressure task Care Plan Weekly blood pressure task No Dacia, Claudette, PIECE GOODS CLERK Weekly blood pressure task Care Plan Weekly blood pressure task No Dacia, Claudette, PIECE GOODS CLERK Patient has chronic kidney disease Care Plan Patient has chronic kidney disease No Dacia, Claudette, PIECE GOODS CLERK Patient has chronic kidney disease Care Plan Patient has chronic kidney disease No [place], Claudette, PIECE GOODS CLERK Patient has chronic kidney disease Care Plan Patient has chronic kidney disease No [place], Claudette, PIECE GOODS CLERK Patient has diabetic neuropathy Care Plan Patient has diabetic neuropathy No [place], Claudette, PIECE GOODS CLERK Patient has diabetic neuropathy Care Plan Patient has diabetic neuropathy No [place], Claudette, PIECE GOODS CLERK Patient has diabetic neuropathy Care Plan Patient has diabetic neuropathy No [place], Claudette, PIECE GOODS CLERK Weekly blood pressure task Care Plan Weekly blood pressure task No [place], Claudette, PIECE GOODS CLERK Weekly blood pressure task Care Plan Weekly blood pressure task No Dacia, Claudette, PIECE GOODS CLERK Weekly blood pressure task Care Plan Weekly blood pressure task No [place], Claudette, PIECE GOODS CLERK Patient has chronic kidney disease Care Plan Patient has chronic kidney disease No Dacia, Claudette, PIECE GOODS CLERK Patient has chronic kidney disease Care Plan Patient has chronic kidney disease No Dacia, Claudette, PIECE GOODS CLERK Patient has chronic kidney disease Care Plan Patient has chronic kidney disease No [place], Claudette, PIECE GOODS CLERK Patient has diabetic neuropathy Care Plan Patient has diabetic neuropathy No [place], Claudette, PIECE GOODS CLERK Patient has diabetic neuropathy Care Plan Patient has diabetic neuropathy No Dacia, Claudette, PIECE GOODS CLERK Patient has diabetic neuropathy Care Plan Patient has diabetic neuropathy No Dacia, Claudette, PIECE GOODS CLERK Weekly blood pressure task Care Plan Weekly blood pressure task No Phalen, Waleska, MEDICAL EDITOR Weekly blood pressure task Care Plan Weekly blood pressure task No Phalen, Waleska, MEDICAL EDITOR Weekly blood pressure task Care Plan Weekly blood pressure task No Phalen, Waleska, MEDICAL EDITOR Patient has chronic kidney disease Care Plan Patient has chronic kidney disease No Phalen, Waleska, MEDICAL EDITOR Patient has chronic kidney disease Care Plan Patient has chronic kidney disease No Phalen, Waleska, MEDICAL EDITOR Patient has chronic kidney disease Care Plan Patient has chronic kidney disease No Phalen, Waleska, MEDICAL EDITOR Patient has diabetic neuropathy Care Plan Patient has diabetic neuropathy No Phalen, Waleska, MEDICAL EDITOR Patient has diabetic neuropathy Care Plan Patient has diabetic neuropathy No Phalen, Waleska, MEDICAL EDITOR Patient has diabetic neuropathy Care Plan Patient has diabetic neuropathy No Phalen, Waleska, MEDICAL EDITOR Weekly blood pressure task Care Plan Weekly [...] Plan Patient has chronic kidney disease No ColonNayla Patient has chronic kidney disease Care Plan Patient has chronic kidney disease No Colon, Nayla Patient has chronic kidney disease Care Plan Patient has chronic kidney disease No Colon, Nayla Patient has diabetic neuropathy Care Plan Patient has diabetic neuropathy No Colon, Nayla Patient has diabetic neuropathy Care Plan Patient has diabetic neuropathy No Harpreet, Nayla Patient has diabetic neuropathy Care Plan Patient has diabetic neuropathy No Harpreet Nayla Weekly blood pressure task [...] Plan Patient has chronic kidney disease No MinhBen Patient has diabetic neuropathy Care Plan Patient has diabetic neuropathy No Minh Ben Patient has diabetic neuropathy Care Plan Patient has diabetic neuropathy No Minh Ben Patient has diabetic neuropathy Care Plan Patient has diabetic neuropathy No Ben Wilkinson Weekly blood pressure task Care Plan Weekly blood pressure task No MinhBen Weekly blood pressure task Care Plan Weekly blood pressure task No Ben Wilkinson Weekly blood pressure task Care Plan Weekly blood pressure task No Minh Ben Patient has chronic kidney disease Care Plan Patient has chronic kidney disease No Minh Ben Patient has chronic kidney disease Care Plan Patient has chronic kidney disease No Minh Ben Patient has chronic kidney [...] Care Plan Weekly blood pressure task No Phalen Waleska, MEDICAL EDITOR Weekly blood pressure task Care Plan Weekly blood pressure task No Phalen Waleska, MEDICAL EDITOR Weekly blood pressure task Care Plan Weekly blood pressure task No Phalen Waleska, MEDICAL EDITOR Patient has chronic kidney disease Care Plan Patient has chronic kidney disease No Phalen Waleska, MEDICAL EDITOR Patient has chronic kidney disease Care Plan Patient has chronic kidney disease No Phalen Waleska, MEDICAL EDITOR Patient has chronic kidney disease Care Plan Patient has chronic kidney disease No Phalen Waleska, MEDICAL EDITOR Patient has diabetic neuropathy Care Plan Patient has diabetic neuropathy No Phalen Waleska, MEDICAL EDITOR Patient has diabetic neuropathy Care Plan Patient has diabetic neuropathy No Phalen Waleska, MEDICAL EDITOR Patient has diabetic neuropathy Care Plan Patient has diabetic neuropathy No Phalen, Waleska, MEDICAL EDITOR Weekly blood pressure task Care Plan Weekly blood pressure task No Romana Pedersone, PIECE GOODS CLERK Weekly blood pressure task Care Plan Weekly blood pressure task No Romana Pedersone, PIECE GOODS CLERK Weekly blood pressure task Care Plan Weekly blood pressure task No Radha Pedersondie, PIECE GOODS CLERK Patient has chronic kidney disease Care Plan Patient has chronic kidney disease No Romana Pedersone, PIECE GOODS CLERK Patient has chronic kidney disease Care Plan Patient has chronic kidney disease No Claudette Pederson, PIECE GOODS CLERK Patient has chronic kidney disease Care Plan Patient has chronic kidney disease No Dacia, Claudette, PIECE GOODS CLERK Patient has diabetic neuropathy Care Plan Patient has diabetic neuropathy No [place], Claudette, PIECE GOODS CLERK Patient has diabetic neuropathy Care Plan Patient has diabetic neuropathy No [place], Claudette, PIECE GOODS CLERK Patient has diabetic neuropathy Care Plan Patient has diabetic neuropathy No [place], Claudette, PIECE GOODS CLERK Weekly blood pressure task Care Plan Weekly [...] Care Plan Patient has diabetic neuropathy No Vihsnu De Souza Patient has diabetic neuropathy Care [...] Weekly blood pressure task No Romana Pedersone, PIECE GOODS CLERK Weekly blood pressure task Care Plan Weekly blood pressure task No Romana Pedersone PIECE GOODS CLERK Weekly blood pressure task Care Plan Weekly blood pressure task No Radha Pedersondie, PIECE GOODS CLERK Patient has chronic kidney disease Care Plan Patient has chronic kidney disease No Radha Pedersondie, PIECE GOODS CLERK Patient has chronic kidney disease Care Plan Patient has chronic kidney disease No Radha Pedersondie, PIECE GOODS CLERK Patient has chronic kidney disease Care Plan Patient has chronic kidney disease No Radha Pedersondie, PIECE GOODS CLERK Patient has diabetic neuropathy Care Plan Patient has diabetic neuropathy No DaciaRomana wilsone, PIECE GOODS CLERK Patient has diabetic neuropathy Care Plan Patient has diabetic neuropathy No Romana Pedersone, PIECE GOODS CLERK Patient has diabetic neuropathy Care Plan Patient has diabetic neuropathy No Radha Pedersondie, PIECE GOODS CLERK Weekly blood pressure task Care Plan Weekly [...] Patient has diabetic neuropathy No Asher Wilkinsonjohn documented as of this encounter Procedures Procedure Name Priority Date/Time Associated Diagnosis Comments US RENAL COMPLETE Routine 04/05/2025 2:4 8 PM EST documented in this encounter Results * US Renal Complete (04/05/2025 2:48 PM EST) Anatomical Region Laterality Modality Kidney Ultrasound 04/05/2025 2:48 PM EST Narrative 04/05/2025 3:37 PM EST [facility] [address] [place] [address] [place] [address] Ultrasound Report Signed Patient: Barrett Goldman MR#: [id number] : 1965 Acct:[id number] Age/Sex: 60 / M ADM Date: 04/05/25 Loc: HO.HMGCX Attending Dr: Nigel Arboleda MD Ordering Physician: Nigel Arboleda MD Date of Service: 04/05/25 Procedure(s): US renal BI Accession Number(s): [id number] cc: Nigel Arboleda MD; Waleska Goldberg Reason [...] Darnell Lovell MD 04/05/2025 03:33 PM EST RP Dictated By: Darnell Lovell MD Signed By: <Electronically signed by Darnell Lovell MD in OV> 04/05/25 1533 DD/ 1448 TD/TT: 04/05/25 1457 Furnace Charging Machine Operator: Procedure Note Donotuseinterpreter, Image - 04/05/2025 [facility] [address] [place] [address] [place] [address] Ultrasound Report Signed Patient: Barrett Goldman AMR#: [id number] : 1965Acct:[id number] Age/Sex: 60 / MADM Date: 04/05/25 [facility]: Nigel Arboleda MD Ordering Physician: Nigel Arboleda MD Date of Service: 04/05/25 Procedure(s): US renal BI Accession Number(s): [id number] cc: Nigel Arboleda MD; Waleska Goldberg Reason [...] Darnell Lovell MD 04/05/2025 03:33 PM EST RP Dictated By: Darnell Lovell MD Signed By: <Electronically signed by Darnell Lovell MD in OV> 04/05/25 1533 DD/ 1448 TD/TT: 04/05/25 1457 Furnace Charging Machine Operator: [facility] External Provider IMG PROCEDURES Edited Result - Final documented in this encounter Visit Diagnoses Not [...] neuropathy 04/05/2025 Patient has diabetic neuropathy 04/05/2025 Assessment Noted Time PHQ-9 Depression Total Score: 0 08/11/19 11:33 AM EDT documented as of this encounter Care Teams Furniture Arranger Relationship Specialty Start Date End Date Waleska Goldberg FNP [address] [place] [phone] PCP - General Family Medicine 12/12/21 Abhishek Murdock, RN [address] [place] [phone] Registered Nurse Family Medicine 03/08/25 Ben Wilkinson 03/08/25 Gloria Flores Weigh Box TenderElderly Caregiver 03/13/23 documented as of this encounter
--- OUTSIDE RECORDS SUMMARY | 2025-04-05 15:53 | XMS_ITS | Encounter Summary ---
Author Organization [employer] Address [address] [facility] 7[address] [place] [address] Care Team Providers Care Property Claim Rep Name Role Phone Waleska Goldberg Primary Care Provider [phone] Abhishek Murdock RN Unavailable [phone] Ben Wilkinson Unavailable Reason for Visit * Reason Comments Care Coordination C3CM/CHW Ben salcido, initial assessment scheduled Encounter Details Date Type Department Care Team (Latest Contact Info) Description 04/05/2025 Patient Outreach [facility] MEDICINE [address] [place] [address] Waleska Goldberg FNP [address] [place] [address] Care Coordination (C3CM/CHW Ben Wilkinson, initial assessment scheduled ) Social History Tobacco Use Types Packs/Day Years [...] encounter Progress Notes * Ben Wilkinson - 04/05/2025 2:12 PM EST CHW Ben Wilkinson, placed outbound call to patient introducing herself from [facility] CM Department, in regards to offering for [facility] Adult Complex Care Program. Patient's name and was confirmed. Patient agrees to participate in program. Appt. for initial assessment scheduled for 04/25/25 @ 10:00 AM with CM/RN Abhishek Murdock. CHW reinforced direct contact information orCM for any additional questions or concerns and extended clinic hours on Mondays andWednesdays, and Walk-In Urgent Care Located in [facility]. Patient provided with after-hours linefor [facility], , which offer night triage service and option to transfer to oncology transplant network manager provider if needed. Patient verbalizes understanding, and able to repeat back to film writer. documented in this encounter Plan of Treatment Upcoming Encounters Date Type Department Care Team (Late st Contact Info) Description 06/02/2025 1:30 PM EST Office Visit [facility] ADULT DENTAL [address] [place] [address] Weston Phillips, DDS [address] [place] [address] 09/09/2025 9:30 AM EDT Office Visit [facility] OPTOMETRY [address] [place] [address] Elvis Ayesha, OD [address] [place] [address] documented as of this encounter Goals Goal [...] Weekly blood pressure task No Romana Pedersone MATTRESS INSPECTOR Patient has chronic kidney disease Care Plan Patient has chronic kidney disease No Romana PedersoneSHERINEN Patient has chronic kidney disease Care Plan Patient has chronic kidney disease No Claudette Pederson LPN Patient has diabetic neuropathy Care Plan Patient has diabetic neuropathy No Romana Pedersone MATTRESS INSPECTOR Patient has diabetic neuropathy Care Plan Patient has diabetic neuropathy No Romana Pedersone MATTRESS INSPECTOR Weekly blood pressure task Care Plan Weekly [...] Weekly blood pressure task No Dacia, Claudette, MATTRESS INSPECTOR Weekly blood pressure task Care Plan Weekly blood pressure task No Bristol, Claudette, MATTRESS INSPECTOR Weekly blood pressure task Care Plan Weekly blood pressure task No Bristol, Claudette, MATTRESS INSPECTOR Patient has chronic kidney disease Care Plan Patient has chronic kidney disease No Bristol, Claudette, MATTRESS INSPECTOR Patient has chronic kidney disease Care Plan Patient has chronic kidney disease No Dacia, Claudette, MATTRESS INSPECTOR Patient has chronic kidney disease Care Plan Patient has chronic kidney disease No Bristol, Claudette, MATTRESS INSPECTOR Patient has diabetic neuropathy Care Plan Patient has diabetic neuropathy No Bristol, Claudette, MATTRESS INSPECTOR Patient has diabetic neuropathy Care Plan Patient has diabetic neuropathy No Dacia, Claudette, MATTRESS INSPECTOR Patient has diabetic neuropathy Care Plan Patient has diabetic neuropathy No Dacia, Claudette, MATTRESS INSPECTOR Weekly blood pressure task Care Plan Weekly blood pressure task No Bristol, Claudette, MATTRESS INSPECTOR Weekly blood pressure task Care Plan Weekly blood pressure task No Bristol, Claudette, MATTRESS INSPECTOR Weekly blood pressure task Care Plan Weekly blood pressure task No Dacia, Claudette, MATTRESS INSPECTOR Patient has chronic kidney disease Care Plan Patient has chronic kidney disease No Bristol, Claudette, MATTRESS INSPECTOR Patient has chronic kidney disease Care Plan Patient has chronic kidney disease No Dacia, Claudette, MATTRESS INSPECTOR Patient has chronic kidney disease Care Plan Patient has chronic kidney disease No Dacia, Claudette, MATTRESS INSPECTOR Patient has diabetic neuropathy Care Plan Patient has diabetic neuropathy No Dacia, Claudette, MATTRESS INSPECTOR Patient has diabetic neuropathy Care Plan Patient has diabetic neuropathy No Bristol, Claudette, MATTRESS INSPECTOR Patient has diabetic neuropathy Care Plan Patient has diabetic neuropathy No Bristol, Claudette, MATTRESS INSPECTOR Weekly blood pressure task Care Plan Weekly blood pressure task No Phalen, Waleska, JAVA MOBILE DEVELOPER Weekly blood pressure task Care Plan Weekly blood pressure task No Phalen, Waleska, JAVA MOBILE DEVELOPER Weekly blood pressure task Care Plan Weekly blood pressure task No Phalen, Waleska, JAVA MOBILE DEVELOPER Patient has chronic kidney disease Care Plan Patient has chronic kidney disease No Phalen, Waleska, JAVA MOBILE DEVELOPER Patient has chronic kidney disease Care Plan Patient has chronic kidney disease No Phalen, Waleska, JAVA MOBILE DEVELOPER Patient has chronic kidney disease Care Plan Patient has chronic kidney disease No Phalen, Waleska, JAVA MOBILE DEVELOPER Patient has diabetic neuropathy Care Plan Patient has diabetic neuropathy No Phalen, Waleska, JAVA MOBILE DEVELOPER Patient has diabetic neuropathy Care Plan Patient has diabetic neuropathy No Phalen, Waleska, JAVA MOBILE DEVELOPER Patient has diabetic neuropathy Care Plan Patient has diabetic neuropathy No Phalen, Waleska, JAVA MOBILE DEVELOPER Weekly blood pressure task Care Plan Weekly [...] Care Plan Weekly blood pressure task No Audery Ingram RN Weekly blood pressure task Care Plan Weekly blood pressure task No Audrey Ingram, RN Patient has chronic kidney disease Care Plan Patient has chronic kidney disease No Audrey Ingram RN Patient has chronic kidney disease Care Plan Patient has chronic kidney disease No Juan Jose, Audrey, RN Patient has chronic kidney disease Care [...] Patient has chronic kidney disease No Abhishek uMrdock RN Patient has chronic kidney disease Care [...] Weekly blood pressure task No Phalen, Waleska, JAVA MOBILE DEVELOPER Weekly blood pressure task Care Plan Weekly blood pressure task No Phalen, Waleska, JAVA MOBILE DEVELOPER Weekly blood pressure task Care Plan Weekly blood pressure task No Phalen, Waleska, JAVA MOBILE DEVELOPER Patient has chronic kidney disease Care Plan Patient has chronic kidney disease No Phalen, Waleska, JAVA MOBILE DEVELOPER Patient has chronic kidney disease Care Plan Patient has chronic kidney disease No Phalen, Waleska, JAVA MOBILE DEVELOPER Patient has chronic kidney disease Care Plan Patient has chronic kidney disease No Phalen, Waleska, JAVA MOBILE DEVELOPER Patient has diabetic neuropathy Care Plan Patient has diabetic neuropathy No Phalen, Waleska, JAVA MOBILE DEVELOPER Patient has diabetic neuropathy Care Plan Patient has diabetic neuropathy No Phalen, Waleska, JAVA MOBILE DEVELOPER Patient has diabetic neuropathy Care Plan Patient has diabetic neuropathy No Phalen, Waleska, JAVA MOBILE DEVELOPER Weekly blood pressure task Care Plan Weekly blood pressure task No Dacia, Claudette, MATTRESS INSPECTOR Weekly blood pressure task Care Plan Weekly blood pressure task No Bristol, Claudette, MATTRESS INSPECTOR Weekly blood pressure task Care Plan Weekly blood pressure task No Dacia, Claudette, MATTRESS INSPECTOR Patient has chronic kidney disease Care Plan Patient has chronic kidney disease No Dacia, Claudette, MATTRESS INSPECTOR Patient has chronic kidney disease Care Plan Patient has chronic kidney disease No Bristol, Claudette, MATTRESS INSPECTOR Patient has chronic kidney disease Care Plan Patient has chronic kidney disease No Dacia, Claudette, MATTRESS INSPECTOR Patient has diabetic neuropathy Care Plan Patient has diabetic neuropathy No Dacia, Claudette, MATTRESS INSPECTOR Patient has diabetic neuropathy Care Plan Patient has diabetic neuropathy No Bristol, Claudette, MATTRESS INSPECTOR Patient has diabetic neuropathy Care Plan Patient has diabetic neuropathy No Dacia, Claudette, MATTRESS INSPECTOR Weekly blood pressure task Care Plan Weekly [...] Weekly blood pressure task No Radha Pedersondie, MATTRESS INSPECTOR Weekly blood pressure task Care Plan Weekly blood pressure task No Dacia, Claudette, MATTRESS INSPECTOR Weekly blood pressure task Care Plan Weekly blood pressure task No BristolRadhaClaudette, MATTRESS INSPECTOR Patient has chronic kidney disease Care Plan Patient has chronic kidney disease No Bristol, Claudette, MATTRESS INSPECTOR Patient has chronic kidney disease Care Plan Patient has chronic kidney disease No Bristol, Claudette, MATTRESS INSPECTOR Patient has chronic kidney disease Care Plan Patient has chronic kidney disease No Dacia, Claudette, MATTRESS INSPECTOR Patient has diabetic neuropathy Care Plan Patient has diabetic neuropathy No Radha Pedersondie, MATTRESS INSPECTOR Patient has diabetic neuropathy Care Plan Patient has diabetic neuropathy No Romana Pedersone, MATTRESS INSPECTOR Patient has diabetic neuropathy Care Plan Patient has diabetic neuropathy No Claudette Pederson, MATTRESS INSPECTOR Weekly blood pressure task Care Plan Weekly [...] Patient has diabetic neuropathy No Ben Wilkinson documented as of this encounter Visit Diagnoses [...] documented as of this encounter Care Teams Property Claim Rep Relationship Specialty Start Date End Date Waleska Goldberg FNP [address] [place] [address] PCP - General Family Medicine 12/12/21 Abhishek Murdock, FARSHAD [address] [place] [address] Registered Nurse Family Medicine 03/08/25 Ben Wilkinson 03/08/25 Gloria Flores Manufacturing SupervisorTeenage Babysitter 03/13/23 documented as of this encounter
--- OUTSIDE RECORDS SUMMARY | 2025-04-05 15:53 | XMS_ITS | Encounter Summary ---
Author Organization [employer] Address [address] [facility] [address] [place] [address] Care Team Providers Care High Risk Case Manager Name Role Phone Waleska Goldberg Primary Care Provider [phone] Abhishek Murdock RN Unavailable [phone] Ben Wilkinson Unavailable Reason for Visit * Reason Onset Date Comments Med Refill 03/31/2025 Encounter Details Date Type Department Care Team ([facility] st Contact Info) Description 03/31/2025 Telephone [facility] MEDICINE [address] [place] [address] Waleska Goldberg FNP [address] [place], [place] [id number] Med Refill Social History Tobacco Use Types [...] encounter Miscellaneous Notes * Telephone Encounter - Vishnu De Souza - 03/31/2025 11:37 AM EST Patient is requesting a refill on the following medication: oxyCODONE-acetaminophen (Percocet) 5-325 MG tablet documented in this encounter Plan of Treatment Upcoming Encounters Date Type Department Care Team (Late st Contact Info) Description 06/02/2025 1:30 PM EST Office Visit [facility] ADULT DENTAL [address] [place] [address] Weston Phillips DDS [address] [place] [address] 09/09/2025 9:30 AM EDT Office Visit [facility] OPTOMETRY [address] [place] [address] Ayesha Leal OD [address] [place] [address] documented as of this encounter Goals Goal Patient Goal Type Associated Problems Recent Progress Patient-Stated? Author Help patients manage their type 2 diabetes Care Plan Help patients manage their type 2 diabetes No Bethalto, Claudette, CHILD CARE EDUCATION COORDINATOR Weekly blood pressure task Care Plan Weekly blood pressure task No Dacia, Claudette, CHILD CARE EDUCATION COORDINATOR Help patients manage their type 2 diabetes Care Plan Help patients manage their type 2 diabetes No [place]al[place], Claudette, CHILD CARE EDUCATION COORDINATOR Patient has chronic kidney disease Care Plan Patient has chronic kidney disease No Bethal[place], Claudette, CHILD CARE EDUCATION COORDINATOR Help patients manage their type 2 diabetes Care Plan Help patients manage their type 2 diabetes No Dacia, Claudette, CHILD CARE EDUCATION COORDINATOR Patient has diabetic neuropathy Care Plan Patient has diabetic neuropathy No DaciaRadhaClaudette, CHILD CARE EDUCATION COORDINATOR Weekly blood pressure task Care Plan Weekly blood pressure task No Dacia, Claudette, CHILD CARE EDUCATION COORDINATOR Weekly blood pressure task Care Plan Weekly blood pressure task No Bethalto, Claudette, CHILD CARE EDUCATION COORDINATOR Patient has chronic kidney disease Care Plan Patient has chronic kidney disease No Bethalto, Claudette, CHILD CARE EDUCATION COORDINATOR Patient has chronic kidney disease Care Plan Patient has chronic kidney disease No Bethalto, Claudette, CHILD CARE EDUCATION COORDINATOR Patient has diabetic neuropathy Care Plan Patient has diabetic neuropathy No Dacia, Claudette, CHILD CARE EDUCATION COORDINATOR Patient has diabetic neuropathy Care Plan Patient has diabetic neuropathy No Radha Pedersondie, CHILD CARE EDUCATION COORDINATOR Weekly blood pressure task Care Plan [...] Care Plan Weekly blood pressure task No Bethalto, Claudette, CHILD CARE EDUCATION COORDINATOR Weekly blood pressure task Care Plan Weekly blood pressure task No Dacia, Claudette, CHILD CARE EDUCATION COORDINATOR Weekly blood pressure task Care Plan Weekly blood pressure task No Bethalto, Claudette, CHILD CARE EDUCATION COORDINATOR Patient has chronic kidney disease Care Plan Patient has chronic kidney disease No Dacia, Claudette, CHILD CARE EDUCATION COORDINATOR Patient has chronic kidney disease Care Plan Patient has chronic kidney disease No Dacia, Claudette, CHILD CARE EDUCATION COORDINATOR Patient has chronic kidney disease Care Plan Patient has chronic kidney disease No Bethalto, Claudette, CHILD CARE EDUCATION COORDINATOR Patient has diabetic neuropathy Care Plan Patient has diabetic neuropathy No Bethalto, Claudette, CHILD CARE EDUCATION COORDINATOR Patient has diabetic neuropathy Care Plan Patient has diabetic neuropathy No Bethalto, Claudette, CHILD CARE EDUCATION COORDINATOR Patient has diabetic neuropathy Care Plan Patient has diabetic neuropathy No Dacia, Claudette, CHILD CARE EDUCATION COORDINATOR Weekly blood pressure task Care Plan Weekly blood pressure task No Dacia, Claudette, CHILD CARE EDUCATION COORDINATOR Weekly blood pressure task Care Plan Weekly blood pressure task No Bethalto, Claudette, CHILD CARE EDUCATION COORDINATOR Weekly blood pressure task Care Plan Weekly blood pressure task No Bethalto, Claudette, CHILD CARE EDUCATION COORDINATOR Patient has chronic kidney disease Care Plan Patient has chronic kidney disease No Bethalto, Claudette, CHILD CARE EDUCATION COORDINATOR Patient has chronic kidney disease Care Plan Patient has chronic kidney disease No Dacia, Claudette, CHILD CARE EDUCATION COORDINATOR Patient has chronic kidney disease Care Plan Patient has chronic kidney disease No Dacia, Claudette, CHILD CARE EDUCATION COORDINATOR Patient has diabetic neuropathy Care Plan Patient has diabetic neuropathy No Bethalto, Claudette, CHILD CARE EDUCATION COORDINATOR Patient has diabetic neuropathy Care Plan Patient has diabetic neuropathy No Dacia, Claudette, CHILD CARE EDUCATION COORDINATOR Patient has diabetic neuropathy Care Plan Patient has diabetic neuropathy No Dacia, Claudette, CHILD CARE EDUCATION COORDINATOR Weekly blood pressure task Care Plan Weekly blood pressure task No Phalen, Waleska, PICKLE PUMPER Weekly blood pressure task Care Plan Weekly blood pressure task No Phalen, Waleska, PICKLE PUMPER Weekly blood pressure task Care Plan Weekly blood pressure task No Phalen, Waleska, PICKLE PUMPER Patient has chronic kidney disease Care Plan Patient has chronic kidney disease No Phalen, Waleska, PICKLE PUMPER Patient has chronic kidney disease Care Plan Patient has chronic kidney disease No Phalen, Waleska, PICKLE PUMPER Patient has chronic kidney disease Care Plan Patient has chronic kidney disease No Phalen, Waleska, PICKLE PUMPER Patient has diabetic neuropathy Care Plan Patient has diabetic neuropathy No Phalen, Waleska, PICKLE PUMPER Patient has diabetic neuropathy Care Plan Patient has diabetic neuropathy No Phalen, Waleska, PICKLE PUMPER Patient has diabetic neuropathy Care Plan Patient has diabetic neuropathy No Phalen, Waleska, PICKLE PUMPER Weekly blood pressure task Care Plan Weekly blood pressure task No Means, Omaira Weekly blood pressure task Care Plan Weekly blood pressure task No Means Omaira Weekly blood pressure task Care Plan [...] has diabetic neuropathy No Abhishek Murdock, RN Weekly blood pressure task Care Plan [...] Weekly blood pressure task No Ashlyn Waleska, PICKLE PUMPER Weekly blood pressure task Care Plan Weekly blood pressure task No Ashlyn Waleska, PICKLE PUMPER Weekly blood pressure task Care Plan Weekly blood pressure task No Phalarcelia Waleska, PICKLE PUMPER Patient has chronic kidney disease Care Plan Patient has chronic kidney disease No Phalarcelia Waleska, PICKLE PUMPER Patient has chronic kidney disease Care Plan Patient has chronic kidney disease No Ashlyn Waleska, PICKLE PUMPER Patient has chronic kidney disease Care Plan Patient has chronic kidney disease No Ashlyn Waleska, PICKLE PUMPER Patient has diabetic neuropathy Care Plan Patient has diabetic neuropathy No Ashlyn Waleska, PICKLE PUMPER Patient has diabetic neuropathy Care Plan Patient has diabetic neuropathy No Phalen, Waleska, PICKLE PUMPER Patient has diabetic neuropathy Care Plan Patient has diabetic neuropathy No Phalen, Waleska, PICKLE PUMPER Weekly blood pressure task Care Plan Weekly blood pressure task No Dacia, Claudette, CHILD CARE EDUCATION COORDINATOR Weekly blood pressure task Care Plan Weekly blood pressure task No Bethalto, Claudette, CHILD CARE EDUCATION COORDINATOR Weekly blood pressure task Care Plan Weekly blood pressure task No Bethalto, Claudette, CHILD CARE EDUCATION COORDINATOR Patient has chronic kidney disease Care Plan Patient has chronic kidney disease No Bethalto, Claudette, CHILD CARE EDUCATION COORDINATOR Patient has chronic kidney disease Care Plan Patient has chronic kidney disease No Bethalto, Claudette, CHILD CARE EDUCATION COORDINATOR Patient has chronic kidney disease Care Plan Patient has chronic kidney disease No Dacia, Claudette, CHILD CARE EDUCATION COORDINATOR Patient has diabetic neuropathy Care Plan Patient has diabetic neuropathy No Dacia, Claudette, CHILD CARE EDUCATION COORDINATOR Patient has diabetic neuropathy Care Plan Patient has diabetic neuropathy No Dacia, Claudette, CHILD CARE EDUCATION COORDINATOR Patient has diabetic neuropathy Care Plan Patient has diabetic neuropathy No Bethalto, Claudette, CHILD CARE EDUCATION COORDINATOR Weekly blood pressure task Care Plan [...] has diabetic neuropathy No Aileen Ford RN documented as of this encounter Visit Diagnoses [...] neuropathy 03/31/2025 Patient has diabetic neuropathy 03/31/2025 Assessment Noted Time PHQ-9 Depression Total Score: 0 08/11/19 25 11:33 AM EDT documented as of this encounter Care Teams High Risk Case Manager Relationship Specialty Start Date End Date Waleska Goldberg FNP [address] [place] [id number] PCP - General Family Medicine 12/12/21 Abhishek Murdock, RN [address] [place] [id number] Registered Nurse Family Medicine 03/08/25 Ben Wilkinson 03/08/25 Gloria Flores Hand Glove CleanerFish Bin Tender 03/13/23 documented as of this encounter
--- OUTSIDE RECORDS SUMMARY | 2025-04-05 15:54 | XMS_ITS ---
Author Organization [employer] Address [address] [facility] 7[address] [place] [address] Care Team Providers Care Services Manager Name Role Phone Waleska Goldberg Primary Care Provider [phone] Abhishek Murdock RN Unavailable [phone] Ben Wilkinson Unavailable CHW Complex Status:Outreach In Progress (Enrolling) Start date:03/08/2025 Enrollment reason:ADT Feed Overview ED- Pt went to [facility] ED on 03/08/25. Case Team Name Relationship Phone Ben Wilkinson(Responsible Staff) [phone] Continued Care and Services Coordination
--- OUTSIDE RECORDS SUMMARY | 2025-04-05 15:54 | XMS_ITS | Encounter Summary ---
Author Organization [employer] Address [address] [facility] [address] [place] [address] Care Team Providers Care Product Development Worker Name Role Phone Waleska Goldberg WOOD MILLING MACHINE HAND Primary Care Provider [phone] Abhishek Murdock RN Unavailable [phone] Ben Wilkinson Unavailable Reason for Visit * Reason Comments Care Coordination C3- chart review Encounter Details Date Type Department Care Team (Latest Contact Info) Description 03/08/2025 Patient Outreach [facility]S [address] [place], [place] [id number] Waleska Goldberg FNP [address] [place], [place] [id number] Care Coordination (C3CM- chart review) Social History Tobacco Use Types Packs/Day Years [...] as of this encounter Progress Notes * Abhishek Murdock RN - 03/08/2025 10:23 AM EST DENA Murdock RN, performed chart review, in anticipation of initial assessment with patient, aspatient has stratified for C3 Adult Complex Care through the ADT feed. History significant for arthritis of both hips, arthritis of first metatarsophalangeal joint of left foot, benign prostatic hyperplasia with urinary frequency, chronic pelvic pain in male, chronic systolic heart failure, cyst ofepididymis, depressive disorder, diabetic neuropathy, essential hypertension, generalized ischemic myocardial dysfunction, insomnia, S/P CABG x 5, T2DM, cervical spondylosis, patellofemoral arthritisof left knee, lumbar spondylosis, hyperlipidemia, fracture of left patella with routine healing, janelle dder outlet obstruction, chronic constipation, hematoma, trigger finger of right thumb, nephrolithiasis. Specialists include [facility] GI, PT, [facility] Pain Medicine, [facility] orthopaedic surgery, [facility]ometry, [facility] urology, [facility] dental, [facility] cardiovascular. ED visits within the last 12 months include [facility] 03/08/25, [facility] 03/06/25, [facility] 02/26/25, [facility] 08/19/24, [facility] 07/24/24, [facility] 07/16/24, [facility] 05/21/24, [facility] 05/07/24, [facility] 03/22-03/26/25, [facility] 03/19/25. Last appointment in PCP office on 03/04/25. No future appointment scheduled, on recall for 06/04/25. documented in this encounter Plan of Treatment Upcoming Encounters Date Type Department Care Team (Late st Contact Info) Description 06/02/2025 1:30 PM EST Office Visit [facility] ADULT DENTAL [address] [place] [address] Weston Phillips, DDS [address] [place] [address] 09/09/2025 9:30 AM EDT Office Visit [facility] OPTOMETRY [address] [place] [address] TarAyesha davalos, OD [address] [place] [address] documented as of this encounter Goals Goal [...] 2 diabetes No Romana PedersoneSHERINEN Patient has diabetic neuropathy Care Plan Patient [...] Patient has diabetic neuropathy No Dacia, Claudette, GEAR TESTER Patient has diabetic neuropathy Care Plan Patient has diabetic neuropathy No Estelline, Claudette, GEAR TESTER Weekly blood pressure task Care Plan Weekly [...] Weekly blood pressure task No Dacia, Claudette, GEAR TESTER Weekly blood pressure task Care Plan Weekly blood pressure task No Estelline, Claudette, GEAR TESTER Weekly blood pressure task Care Plan Weekly blood pressure task No Estelline, Claudette, GEAR TESTER Patient has chronic kidney disease Care Plan Patient has chronic kidney disease No Estelline, Claudette, GEAR TESTER Patient has chronic kidney disease Care Plan Patient has chronic kidney disease No Dacia, Claudette, GEAR TESTER Patient has chronic kidney disease Care Plan Patient has chronic kidney disease No Estelline, Claudette, GEAR TESTER Patient has diabetic neuropathy Care Plan Patient has diabetic neuropathy No Dacia, Claudette, GEAR TESTER Patient has diabetic neuropathy Care Plan Patient has diabetic neuropathy No Estelline, Claudette, GEAR TESTER Patient has diabetic neuropathy Care Plan Patient has diabetic neuropathy No Estelline, Claudette, GEAR TESTER Weekly blood pressure task Care Plan Weekly blood pressure task No Dacia, Claudette, GEAR TESTER Weekly blood pressure task Care Plan Weekly blood pressure task No Dacia, Claudette, GEAR TESTER Weekly blood pressure task Care Plan Weekly blood pressure task No Estelline, Claudette, GEAR TESTER Patient has chronic kidney disease Care Plan Patient has chronic kidney disease No Dacia, Claudette, GEAR TESTER Patient has chronic kidney disease Care Plan Patient has chronic kidney disease No Dacia, Claudette, GEAR TESTER Patient has chronic kidney disease Care Plan Patient has chronic kidney disease No Dacia, Claudette, GEAR TESTER Patient has diabetic neuropathy Care Plan Patient has diabetic neuropathy No Dacia, Claudette, GEAR TESTER Patient has diabetic neuropathy Care Plan Patient has diabetic neuropathy No Dacia, Claudette, GEAR TESTER Patient has diabetic neuropathy Care Plan Patient has diabetic neuropathy No Estelline, Claudette, GEAR TESTER Weekly blood pressure task Care Plan Weekly blood pressure task No Phalen, Waleska, WOOD MILLING MACHINE HAND Weekly blood pressure task Care Plan Weekly blood pressure task No Phalen, Waleska, WOOD MILLING MACHINE HAND Weekly blood pressure task Care Plan Weekly blood pressure task No Phalen, Waleska, WOOD MILLING MACHINE HAND Patient has chronic kidney disease Care Plan Patient has chronic kidney disease No Phalen, Waleska, WOOD MILLING MACHINE HAND Patient has chronic kidney disease Care Plan Patient has chronic kidney disease No Phalen, Waleska, WOOD MILLING MACHINE HAND Patient has chronic kidney disease Care Plan Patient has chronic kidney disease No Phalen, Waleska, WOOD MILLING MACHINE HAND Patient has diabetic neuropathy Care Plan Patient has diabetic neuropathy No Phalen, Waleska, WOOD MILLING MACHINE HAND Patient has diabetic neuropathy Care Plan Patient has diabetic neuropathy No Phalen, Waleska, WOOD MILLING MACHINE HAND Patient has diabetic neuropathy Care Plan Patient has diabetic neuropathy No Phalen, Waleska, WOOD MILLING MACHINE HAND Weekly blood pressure task Care Plan Weekly [...] Care Plan Patient has diabetic neuropathy No Nayla Mullins Patient has diabetic neuropathy Care Plan Patient has diabetic neuropathy No Nayla Mullins Weekly blood pressure task Care Plan Weekly [...] Plan Patient has diabetic neuropathy No Asher Wilkinsonely Weekly blood pressure task Care Plan Weekly blood pressure task No Phalen Waleska, WOOD MILLING MACHINE HAND Weekly blood pressure task Care Plan Weekly blood pressure task No Phalen Waleska, WOOD MILLING MACHINE HAND Weekly blood pressure task Care Plan Weekly blood pressure task No Phalen Waleska, WOOD MILLING MACHINE HAND Patient has chronic kidney disease Care Plan Patient has chronic kidney disease No Phalen Waleska, WOOD MILLING MACHINE HAND Patient has chronic kidney disease Care Plan Patient has chronic kidney disease No Phalen Waleska, WOOD MILLING MACHINE HAND Patient has chronic kidney disease Care Plan Patient has chronic kidney disease No Phalen, Waleska, WOOD MILLING MACHINE HAND Patient has diabetic neuropathy Care Plan Patient has diabetic neuropathy No Phalen Waleska, WOOD MILLING MACHINE HAND Patient has diabetic neuropathy Care Plan Patient has diabetic neuropathy No Phalen Waleska, WOOD MILLING MACHINE HAND Patient has diabetic neuropathy Care Plan Patient has diabetic neuropathy No Phalen Waleska, WOOD MILLING MACHINE HAND Weekly blood pressure task Care Plan Weekly blood pressure task No Claudette Pederson GEAR TESTER Weekly blood pressure task Care Plan Weekly blood pressure task No Claudette Pederson GEAR TESTER Weekly blood pressure task Care Plan Weekly blood pressure task No Radha Pedersondie, GEAR TESTER Patient has chronic kidney disease Care Plan Patient has chronic kidney disease No Radha Pedersondie, GEAR TESTER Patient has chronic kidney disease Care Plan Patient has chronic kidney disease No Romana Pedersone, GEAR TESTER Patient has chronic kidney disease Care Plan Patient has chronic kidney disease No Romana Pedersone, GEAR TESTER Patient has diabetic neuropathy Care Plan Patient has diabetic neuropathy No Romana Pedersone, GEAR TESTER Patient has diabetic neuropathy Care Plan Patient has diabetic neuropathy No Romana Pedersone, GEAR TESTER Patient has diabetic neuropathy Care Plan Patient [...] Plan Patient has chronic kidney disease No Wset Rojas PharmD Patient has chronic kidney disease [...] Plan Patient has chronic kidney disease No iVshnu De Souza Patient has diabetic neuropathy Care [...] Patient has chronic kidney disease No Aileen oFrd RN Patient has chronic kidney disease Care [...] neuropathy 04/01/2025 Patient has diabetic neuropathy 04/01/2025 Assessment Noted Time PHQ-9 Depression Total Score: 0 08/11/19 11:33 AM EDT documented as of this encounter Care Teams Product Development Worker Relationship Specialty Start Date End Date Waleska Goldberg FNP [address] [place] [id number] PCP - General Family Medicine 12/12/21 Abhishek Murdock, RN [address] [place] [id number] Registered Nurse Family Medicine 03/08/25 Ben Wilkinson 03/08/25 Gloria Flores Special Education Resource Room TeacherFinish Mender 03/13/23 documented as of this encounter
--- OUTSIDE RECORDS SUMMARY | 2025-04-05 15:54 | XMS_ITS | Encounter Summary ---
Author Organization [employer] Address [address] [place] [address] Care Team Providers Care Compressor Station Chief Engineer Name Role Phone Waleska Goldberg VICE PRESIDENT DIGITAL STRATEGIST Primary Care Provider [phone] Abhishek Murdock RN Unavailable [phone] Ben Wilkinson Unavailable Encounter Details Date Type Department Care Team ([facility] Contact Info) Description 04/01/2025 Telephone [facility] MED & PEDS [address] [place], [place] [phone] Aileen Ford, RN [address] [place], [place] Social History Tobacco Use Types Packs/Day Years [...] Telephone Encounter - Aileen Ford RN - 04/01/2025 10:03 AM EST Fyi. TC to pt regarding message below. Called via S ID# [id number]. No answer, lvm for pt. documented in this encounter Plan of Treatment Upcoming Encounters Date Type Department Care Team (Late st Contact Info) Description 06/02/2025 1:30 PM EST Office Visit [facility] ADULT DENTAL [address] [place] [address] Weston Phillips DDS [address] [place] [address] 09/09/2025 9:30 AM EDT Office Visit [facility] OPTOMETRY [address] [place] [address] TarAyesha davalos, OD [address] [place] [address] documented as of this encounter Goals Goal Patient Goal Type Associated Problems Recent Progress Patient-Stated? Author Help patients manage their type 2 diabetes Care Plan Help patients manage their type 2 diabetes No Claudette Pederson LPN Weekly blood pressure task Care Plan Weekly blood pressure task No [place]and[place], Claudette, SUSTAINABILITY CONSULTANT Help patients manage their type 2 diabetes Care Plan Help patients manage their type 2 diabetes No AnnandaleRadhaClaudette, SUSTAINABILITY CONSULTANT Patient has chronic kidney disease Care Plan Patient has chronic kidney disease No DaciaRadhaClaudette, SUSTAINABILITY CONSULTANT Help patients manage their type 2 diabetes Care Plan Help patients manage their type 2 diabetes No Dacia, Claudette, SUSTAINABILITY CONSULTANT Patient has diabetic neuropathy Care Plan Patient has diabetic neuropathy No AnnandaleRadhaClaudette, SUSTAINABILITY CONSULTANT Weekly blood pressure task Care Plan Weekly blood pressure task No AnnandaleRadhaClaudette, SUSTAINABILITY CONSULTANT Weekly blood pressure task Care Plan Weekly blood pressure task No Dacia, Claudette, SUSTAINABILITY CONSULTANT Patient has chronic kidney disease Care Plan Patient has chronic kidney disease No Dacia, Claudette, SUSTAINABILITY CONSULTANT Patient has chronic kidney disease Care Plan Patient has chronic kidney disease No AnnandaleRadhaClaudette, SUSTAINABILITY CONSULTANT Patient has diabetic neuropathy Care Plan Patient has diabetic neuropathy No [place], Claudette, SUSTAINABILITY CONSULTANT Patient has diabetic neuropathy Care Plan Patient has diabetic neuropathy No Radha Pedersondie, SUSTAINABILITY CONSULTANT Weekly blood pressure task Care Plan [...] Weekly blood pressure task No Radha Pedersondie, SUSTAINABILITY CONSULTANT Weekly blood pressure task Care Plan Weekly blood pressure task No AnnandaleRadhaClaudette, SUSTAINABILITY CONSULTANT Weekly blood pressure task Care Plan Weekly blood pressure task No Annandale Claudette, SUSTAINABILITY CONSULTANT Patient has chronic kidney disease Care Plan Patient has chronic kidney disease No [place], Claudette, SUSTAINABILITY CONSULTANT Patient has chronic kidney disease Care Plan Patient has chronic kidney disease No [place], Claudette, SUSTAINABILITY CONSULTANT Patient has chronic kidney disease Care Plan Patient has chronic kidney disease No [place], Claudette, SUSTAINABILITY CONSULTANT Patient has diabetic neuropathy Care Plan Patient has diabetic neuropathy No Dacia, Claudette, SUSTAINABILITY CONSULTANT Patient has diabetic neuropathy Care Plan Patient has diabetic neuropathy No Dacia, Claudette, SUSTAINABILITY CONSULTANT Patient has diabetic neuropathy Care Plan Patient has diabetic neuropathy No [place], Claudette, SUSTAINABILITY CONSULTANT Weekly blood pressure task Care Plan Weekly blood pressure task No Dacia, Claudette, SUSTAINABILITY CONSULTANT Weekly blood pressure task Care Plan Weekly blood pressure task No [place], Claudette, SUSTAINABILITY CONSULTANT Weekly blood pressure task Care Plan Weekly blood pressure task No [place], Claudette, SUSTAINABILITY CONSULTANT Patient has chronic kidney disease Care Plan Patient has chronic kidney disease No Dacia, Claudette, SUSTAINABILITY CONSULTANT Patient has chronic kidney disease Care Plan Patient has chronic kidney disease No [place]and[place], Claudette, SUSTAINABILITY CONSULTANT Patient has chronic kidney disease Care Plan Patient has chronic kidney disease No [place]and[place], Claudette, SUSTAINABILITY CONSULTANT Patient has diabetic neuropathy Care Plan Patient has diabetic neuropathy No Dacia, Claudette, SUSTAINABILITY CONSULTANT Patient has diabetic neuropathy Care Plan Patient has diabetic neuropathy No Dacia, Claudette, SUSTAINABILITY CONSULTANT Patient has diabetic neuropathy Care Plan Patient has diabetic neuropathy No [place]and[place], Claudette, SUSTAINABILITY CONSULTANT Weekly blood pressure task Care Plan Weekly blood pressure task No Phalen, Waleska, VICE PRESIDENT DIGITAL STRATEGIST Weekly blood pressure task Care Plan Weekly blood pressure task No Phalen, Waleska, VICE PRESIDENT DIGITAL STRATEGIST Weekly blood pressure task Care Plan Weekly blood pressure task No Phalen, Waleska, VICE PRESIDENT DIGITAL STRATEGIST Patient has chronic kidney disease Care Plan Patient has chronic kidney disease No Phalen, Waleska, VICE PRESIDENT DIGITAL STRATEGIST Patient has chronic kidney disease Care Plan Patient has chronic kidney disease No Phalen, Waleska, VICE PRESIDENT DIGITAL STRATEGIST Patient has chronic kidney disease Care Plan Patient has chronic kidney disease No Phalen, Waleska, VICE PRESIDENT DIGITAL STRATEGIST Patient has diabetic neuropathy Care Plan Patient has diabetic neuropathy No Phalen, Waleska, VICE PRESIDENT DIGITAL STRATEGIST Patient has diabetic neuropathy Care Plan Patient has diabetic neuropathy No Phalen, Waleska, VICE PRESIDENT DIGITAL STRATEGIST Patient has diabetic neuropathy Care Plan Patient has diabetic neuropathy No Phalen, Waleska, VICE PRESIDENT DIGITAL STRATEGIST Weekly blood pressure task Care Plan Weekly [...] Patient has diabetic neuropathy No Omaira Means Weekly blood pressure task [...] disease No Murdock, Abhishek, RN Patient has diabetic neuropathy Care Plan Patient has diabetic neuropathy No Abhishek Murdock, RN Patient has diabetic neuropathy Care Plan Patient has diabetic neuropathy No Abhishek Murdock, RN Patient has diabetic neuropathy Care Plan Patient has diabetic neuropathy No Abhishek Murodck, RN Weekly blood pressure task Care Plan [...] Weekly blood pressure task No Waleska Goldberg, VICE PRESIDENT DIGITAL STRATEGIST Weekly blood pressure task Care Plan Weekly blood pressure task No Waleska Goldberg, VICE PRESIDENT DIGITAL STRATEGIST Weekly blood pressure task Care Plan Weekly blood pressure task No Ashlyn Waleska, VICE PRESIDENT DIGITAL STRATEGIST Patient has chronic kidney disease Care Plan Patient has chronic kidney disease No Ashlyn Waleska, VICE PRESIDENT DIGITAL STRATEGIST Patient has chronic kidney disease Care Plan Patient has chronic kidney disease No Ashlyn Waleska, VICE PRESIDENT DIGITAL STRATEGIST Patient has chronic kidney disease Care Plan Patient has chronic kidney disease No Ashlyn Waleska, VICE PRESIDENT DIGITAL STRATEGIST Patient has diabetic neuropathy Care Plan Patient has diabetic neuropathy No Waleska Goldberg, VICE PRESIDENT DIGITAL STRATEGIST Patient has diabetic neuropathy Care Plan Patient has diabetic neuropathy No Waleska Goldberg, VICE PRESIDENT DIGITAL STRATEGIST Patient has diabetic neuropathy Care Plan Patient has diabetic neuropathy No Phalen, Waleska, VICE PRESIDENT DIGITAL STRATEGIST Weekly blood pressure task Care Plan Weekly blood pressure task No [place]and[place], Claudette, SUSTAINABILITY CONSULTANT Weekly blood pressure task Care Plan Weekly blood pressure task No Dacia, Claudette, SUSTAINABILITY CONSULTANT Weekly blood pressure task Care Plan Weekly blood pressure task No Dacia, Claudette, SUSTAINABILITY CONSULTANT Patient has chronic kidney disease Care Plan Patient has chronic kidney disease No Dacia, Claudette, SUSTAINABILITY CONSULTANT Patient has chronic kidney disease Care Plan Patient has chronic kidney disease No Dacia, Claudette, SUSTAINABILITY CONSULTANT Patient has chronic kidney disease Care Plan Patient has chronic kidney disease No Dacia, Claudette, SUSTAINABILITY CONSULTANT Patient has diabetic neuropathy Care Plan Patient has diabetic neuropathy No [place], Claudette, SUSTAINABILITY CONSULTANT Patient has diabetic neuropathy Care Plan Patient has diabetic neuropathy No [place], Claudette, SUSTAINABILITY CONSULTANT Patient has diabetic neuropathy Care Plan Patient has diabetic neuropathy No [place], Claudette, SUSTAINABILITY CONSULTANT Weekly blood pressure task Care Plan [...] documented as of this encounter Care Teams Compressor Station Chief Engineer Relationship Specialty Start Date End Date Waleska Goldberg FNP [address] [place] [id number] PCP - General Family Medicine 12/12/21 Abhishek Murdock, RN [address] [place] [phone] Registered Nurse Family Medicine 03/08/25 Ben Wilkinson 03/08/25 Gloria Flores Touch Up PainterPouncer 03/13/23 documented as of this encounter
--- OUTSIDE RECORDS SUMMARY | 2025-04-05 15:54 | XMS_ITS | Encounter Summary ---
Author Organization [employer] Address [address] [facility] 7t [place] [address] Care Team Providers Care Office Nurse Practitioner Name Role Phone Waleska Goldberg SUEDE BRUSHER Primary Care Provider [phone] Abhishek Murdock RN Unavailable Ben Wilkinson Unavailable Reason for Visit * Reason Onset Date Comments Med Refill 03/31/2025 Encounter Details Date Type Department Care Team ([facility] Contact Info) Description 03/31/2025 Telephone [facility] MED [facility] PEDS [address] [place] [address] Aileen Ford, RN [address] [place] [address] Med Refill Social History Tobacco Use Types [...] Telephone Encounter - Aileen Ford RN - 03/31/2025 12:47 PM EST Pt requesting refill of oxyCODONE-acetaminophen (Percocet) 5-325 MG tablet. [place] [facility] [place]ty 15. Please advise documented in this encounter Plan of Treatment Upcoming Encounters Date Type Department Care Team (Late st Contact Info) Description 06/02/2025 1:30 PM EST Office Visit [facility] ADULT DENTAL [address] [place] [address] Weston Phillips DDS [address] [place] [address] 09/09/2025 9:30 AM EDT Office Visit [facility] OPTOMETRY [address] [place] [address] Ayesha Leal OD [address] [place] [address] documented as of this encounter Goals Goal Patient Goal Type Associated Problems Recent Progress Patient-Stated? Author Help patients manage their type 2 diabetes Care Plan Help patients manage their type 2 diabetes No Radha Pedersondie, JIG AND FIXTURE BUILDER APPRENTICE Weekly blood pressure task Care Plan Weekly blood pressure task No [place], Claudette, JIG AND FIXTURE BUILDER APPRENTICE Help patients manage their type 2 diabetes Care Plan Help patients manage their type 2 diabetes No Dacia, Claudette, JIG AND FIXTURE BUILDER APPRENTICE Patient has chronic kidney disease Care Plan Patient has chronic kidney disease No [place], Claudette, JIG AND FIXTURE BUILDER APPRENTICE Help patients manage their type 2 diabetes Care Plan Help patients manage their type 2 diabetes No DaciaRadhaClaudette, JIG AND FIXTURE BUILDER APPRENTICE Patient has diabetic neuropathy Care Plan Patient has diabetic neuropathy No Dacia, Claudette, JIG AND FIXTURE BUILDER APPRENTICE Weekly blood pressure task Care Plan Weekly blood pressure task No [place], Claudette, JIG AND FIXTURE BUILDER APPRENTICE Weekly blood pressure task Care Plan Weekly blood pressure task No Dacia Claudette, JIG AND FIXTURE BUILDER APPRENTICE Patient has chronic kidney disease Care Plan Patient has chronic kidney disease No Dacia, Claudette, JIG AND FIXTURE BUILDER APPRENTICE Patient has chronic kidney disease Care Plan Patient has chronic kidney disease No Dacia, Claudette, JIG AND FIXTURE BUILDER APPRENTICE Patient has diabetic neuropathy Care Plan Patient has diabetic neuropathy No [place], Claudette, JIG AND FIXTURE BUILDER APPRENTICE Patient has diabetic neuropathy Care Plan Patient has diabetic neuropathy No [place], Claudette, JIG AND FIXTURE BUILDER APPRENTICE Weekly blood pressure task Care Plan Weekly [...] Care Plan Weekly blood pressure task No [place], Claudette, JIG AND FIXTURE BUILDER APPRENTICE Weekly blood pressure task Care Plan Weekly blood pressure task No DaciaRadhaClaudette, JIG AND FIXTURE BUILDER APPRENTICE Weekly blood pressure task Care Plan Weekly blood pressure task No Dacia, Claudette, JIG AND FIXTURE BUILDER APPRENTICE Patient has chronic kidney disease Care Plan Patient has chronic kidney disease No Dacia, Claudette, JIG AND FIXTURE BUILDER APPRENTICE Patient has chronic kidney disease Care Plan Patient has chronic kidney disease No [place], Claudette, JIG AND FIXTURE BUILDER APPRENTICE Patient has chronic kidney disease Care Plan Patient has chronic kidney disease No Dacia, Claudette, JIG AND FIXTURE BUILDER APPRENTICE Patient has diabetic neuropathy Care Plan Patient has diabetic neuropathy No [place], Claudette, JIG AND FIXTURE BUILDER APPRENTICE Patient has diabetic neuropathy Care Plan Patient has diabetic neuropathy No Dacia, Claudette, JIG AND FIXTURE BUILDER APPRENTICE Patient has diabetic neuropathy Care Plan Patient has diabetic neuropathy No Dacia, Claudette, JIG AND FIXTURE BUILDER APPRENTICE Weekly blood pressure task Care Plan Weekly blood pressure task No [place], Claudette, JIG AND FIXTURE BUILDER APPRENTICE Weekly blood pressure task Care Plan Weekly blood pressure task No [place], Claudette, JIG AND FIXTURE BUILDER APPRENTICE Weekly blood pressure task Care Plan Weekly blood pressure task No Dacia, Claudette, JIG AND FIXTURE BUILDER APPRENTICE Patient has chronic kidney disease Care Plan Patient has chronic kidney disease No [place], Claudette, JIG AND FIXTURE BUILDER APPRENTICE Patient has chronic kidney disease Care Plan Patient has chronic kidney disease No Dacia, Claudette, JIG AND FIXTURE BUILDER APPRENTICE Patient has chronic kidney disease Care Plan Patient has chronic kidney disease No [place], Claudette, JIG AND FIXTURE BUILDER APPRENTICE Patient has diabetic neuropathy Care Plan Patient has diabetic neuropathy No [place], Claudette, JIG AND FIXTURE BUILDER APPRENTICE Patient has diabetic neuropathy Care Plan Patient has diabetic neuropathy No Dacia, Claudette, JIG AND FIXTURE BUILDER APPRENTICE Patient has diabetic neuropathy Care Plan Patient has diabetic neuropathy No Dacia, Claudette, JIG AND FIXTURE BUILDER APPRENTICE Weekly blood pressure task Care Plan Weekly blood pressure task No Phalen, Waleska, SUEDE BRUSHER Weekly blood pressure task Care Plan Weekly blood pressure task No Phalen, Waleska, SUEDE BRUSHER Weekly blood pressure task Care Plan Weekly blood pressure task No Phalen, Waleska, SUEDE BRUSHER Patient has chronic kidney disease Care Plan Patient has chronic kidney disease No Phalen, Waleska, SUEDE BRUSHER Patient has chronic kidney disease Care Plan Patient has chronic kidney disease No Phalen, Waleska, SUEDE BRUSHER Patient has chronic kidney disease Care Plan Patient has chronic kidney disease No Phalen, Waleska, SUEDE BRUSHER Patient has diabetic neuropathy Care Plan Patient has diabetic neuropathy No Phalen, Waleska, SUEDE BRUSHER Patient has diabetic neuropathy Care Plan Patient has diabetic neuropathy No Phalen, Waleska, SUEDE BRUSHER Patient has diabetic neuropathy Care Plan Patient has diabetic neuropathy No Phalen, Waleska, SUEDE BRUSHER Weekly blood pressure task Care Plan Weekly [...] Plan Weekly blood pressure task No Abhishek Murdock, RN Patient has chronic kidney disease Care Plan Patient has chronic kidney disease No Abhishek Murdock RN Patient has chronic kidney disease Care Plan Patient has chronic kidney disease No Abhishek Murdock, RN Patient has chronic kidney disease Care Plan Patient has chronic kidney disease No Abhishek Murdock, RN Patient has diabetic [...] Care Plan Weekly blood pressure task No Phalarcelia, Waleska, SUEDE BRUSHER Weekly blood pressure task Care Plan Weekly blood pressure task No Phalarcelia Waleska, SUEDE BRUSHER Weekly blood pressure task Care Plan Weekly blood pressure task No Phalen, Waleska, SUEDE BRUSHER Patient has chronic kidney disease Care Plan Patient has chronic kidney disease No Phalarcelia Waleska, SUEDE BRUSHER Patient has chronic kidney disease Care Plan Patient has chronic kidney disease No Phalarcelia, Waleska, SUEDE BRUSHER Patient has chronic kidney disease Care Plan Patient has chronic kidney disease No Phalarcelia Waleska, SUEDE BRUSHER Patient has diabetic neuropathy Care Plan Patient has diabetic neuropathy No Phalen, Waleska, SUEDE BRUSHER Patient has diabetic neuropathy Care Plan Patient has diabetic neuropathy No Phalen, Waleska, SUEDE BRUSHER Patient has diabetic neuropathy Care Plan Patient has diabetic neuropathy No Phalen, Waleska, SUEDE BRUSHER Weekly blood pressure task Care Plan Weekly blood pressure task No [place], Claudette, JIG AND FIXTURE BUILDER APPRENTICE Weekly blood pressure task Care Plan Weekly blood pressure task No Dacia, Claudette, JIG AND FIXTURE BUILDER APPRENTICE Weekly blood pressure task Care Plan Weekly blood pressure task No Dacia, Claudette, JIG AND FIXTURE BUILDER APPRENTICE Patient has chronic kidney disease Care Plan Patient has chronic kidney disease No Dacia, Claudette, JIG AND FIXTURE BUILDER APPRENTICE Patient has chronic kidney disease Care Plan Patient has chronic kidney disease No [place], Claudette, JIG AND FIXTURE BUILDER APPRENTICE Patient has chronic kidney disease Care Plan Patient has chronic kidney disease No Dacia, Claudette, JIG AND FIXTURE BUILDER APPRENTICE Patient has diabetic neuropathy Care Plan Patient has diabetic neuropathy No [place], Claudette, JIG AND FIXTURE BUILDER APPRENTICE Patient has diabetic neuropathy Care Plan Patient has diabetic neuropathy No [place], Claudette, JIG AND FIXTURE BUILDER APPRENTICE Patient has diabetic neuropathy Care Plan Patient has diabetic neuropathy No Dacia, Claudette, JIG AND FIXTURE BUILDER APPRENTICE Weekly blood pressure task Care Plan Weekly [...] Care Plan Patient has diabetic neuropathy No Rubnoah, West, PharmD Patient has diabetic neuropathy Care [...] Plan Patient has diabetic neuropathy No Vishnu D eSouza Patient has diabetic neuropathy Care Plan Patient [...] documented as of this encounter Care Teams Office Nurse Practitioner Relationship Specialty Start Date End Date Waleska Goldberg FNP [address] [place] [address] PCP - General Family Medicine 12/12/21 Abhishek Murdock, FARSHAD [address] [place] [address] Registered Nurse Family Medicine 03/08/25 Ben Wilkinson 03/08/25 Gloria Flores Pet Care AssistantFire Code Inspector 03/13/23 documented as of this encounter
--- OUTSIDE RECORDS SUMMARY | 2025-04-05 15:54 | XMS_ITS | Encounter Summary ---
Author Organization [employer] Address [address] [place] [address] Care Team Providers Care Hadoop Administrator Name Role Phone Waleska Goldberg MEDICAL ACCOUNTING CLERK Primary Care Provider [phone] Abhishek Murdock RN Unavailable [phone] Abhishek Murdock RN Unavailable [phone] Ben Wilkinson Unavailable Encounter Details Date Type Department Care Team (Late st Contact Info) Description 04/16/2024 Orders Only [facility] CHC MED & PEDS [address] [place], [place] [id number] ProviderAleisha MD Social History Tobacco Use Types [...] Description 06/02/2025 1:30 PM EST Office Visit [facility] ADULT DENTAL [address] [place] [address] Weston Phillips DDS [address] [place] [address] 09/09/2025 9:30 AM EDT Office Visit [facility] OPTOMETRY [address] [place] [address] Ayesha Leal, OD [address] [place] [address] documented as of this encounter Procedures Procedure [...] documented as of this encounter Care Teams Hadoop Administrator Relationship Specialty Start Date End Date Waleska Goldberg FNP [address] [place] [address] PCP - General Family Medicine 12/12/21 Abhishek Murdock, RN [address] [facility] [address] Registered Nurse Family Medicine 12/20/24 01/07/25 Abhishek Murdock, RN [address] [facility] [place] [address] Registered Nurse Family Medicine 03/08/25 Ben Wilkinson 03/08/[address] SweeperTavern Keeper 03/13/23 documented as of this encounter
--- OUTSIDE RECORDS SUMMARY | 2025-04-05 15:54 | XMS_ITS ---
Author Organization [employer] Address [address] [facility] 7t [place] [address] Care Team Providers Care Banquet Waiter/Waitress Name Role Phone Waleska Goldberg Primary Care Provider [phone] Abhishek Murdock RN Unavailable [phone] Ben Wilkinson Unavailable CM Complex Status:Outreach In Progress (Enrolling) Start date:03/08/2025 Enrollment reason:ADT Feed Overview ED- Pt went [place] [facility] [place] on 03/08/[place]. Case Team Name Relationship Phone Abhishek Murdock RN(Responsible Staff) Registered [employer] benoit [phone] Continued Care and Services Coordination
--- OUTSIDE RECORDS SUMMARY | 2025-04-05 15:54 | XMS_ITS | Encounter Summary ---
Author Organization [employer] Address [address] [facility] 7t [place] [address] Care Team Providers Care Csr Technician Name Role Phone Waleska Goldberg Primary Care Provider Abhishek Murdock RN Unavailable [phone] Ben Wilkinson Unavailable Reason for Visit * Reason Comments Care Coordination C3CM/CHW ROLANDO [place] #[id number] Encounter Details Date Type Department Care Team (Latest Contact Info) Description 04/01/2025 Patient Outreach [facility] MEDICINE [address] [place] [address] Waleska Goldberg FNP [address] [place] [address] Care Coordination (C3CM/CHROLANDO [place] #[id number] ) Social History Tobacco Use Types Packs/Day [...] encounter Progress Notes * Ben Wilkinson - 04/01/2025 2:26 PM EST CHW Ben Wilkinson, placed outbound call to patient to introduce C3 Complex Care Program / SDOH support services. No answer at this time. CHW LVM introducing herself from [facility] CM Department with CHW's name, department and direct contact number requesting call back. Will re-attempt to contact within 2 days. and address not confirmed. documented in this encounter Plan of Treatment Upcoming Encounters Date Type Department Care Team ([facility] st Contact Info) Description 06/02/2025 1:30 PM EST Office Visit [facility] ADULT DENTAL [address] [place] [address] Weston Phillips DDS [address] [place] [address] 09/09/2025 9:30 AM EDT Office Visit [facility] OPTOMETRY [address] [place] [address] Ayesha Leal OD [address] [place] [address] documented as of this encounter Goals Goal [...] has chronic kidney disease No Romana Pedersone CUSTOMER EXPERIENCE MANAGER Help patients manage their type 2 diabetes [...] has chronic kidney disease No Romana Pedersone CUSTOMER EXPERIENCE MANAGER Patient has chronic kidney disease Care Plan Patient has chronic kidney disease No Romana Pedersone, CUSTOMER EXPERIENCE MANAGER Patient has diabetic neuropathy Care Plan Patient has diabetic neuropathy No Claudette Pederson CUSTOMER EXPERIENCE MANAGER Patient has diabetic neuropathy Care Plan [...] Care Plan Weekly blood pressure task No [place], Claudette, CUSTOMER EXPERIENCE MANAGER Weekly blood pressure task Care Plan Weekly blood pressure task No Dacia, Claudette, CUSTOMER EXPERIENCE MANAGER Weekly blood pressure task Care Plan Weekly blood pressure task No Dacia, Claudette, CUSTOMER EXPERIENCE MANAGER Patient has chronic kidney disease Care Plan Patient has chronic kidney disease No Dacia, Claudette, CUSTOMER EXPERIENCE MANAGER Patient has chronic kidney disease Care Plan Patient has chronic kidney disease No Dacia, Claudette, CUSTOMER EXPERIENCE MANAGER Patient has chronic kidney disease Care Plan Patient has chronic kidney disease No Dacia, Claudette, CUSTOMER EXPERIENCE MANAGER Patient has diabetic neuropathy Care Plan Patient has diabetic neuropathy No Dacia, Claudette, CUSTOMER EXPERIENCE MANAGER Patient has diabetic neuropathy Care Plan Patient has diabetic neuropathy No Dacia, Claudette, CUSTOMER EXPERIENCE MANAGER Patient has diabetic neuropathy Care Plan Patient has diabetic neuropathy No [place], Claudette, CUSTOMER EXPERIENCE MANAGER Weekly blood pressure task Care Plan Weekly blood pressure task No [place], Claudette, CUSTOMER EXPERIENCE MANAGER Weekly blood pressure task Care Plan Weekly blood pressure task No Dacia, Claudette, CUSTOMER EXPERIENCE MANAGER Weekly blood pressure task Care Plan Weekly blood pressure task No [place], Claudette, CUSTOMER EXPERIENCE MANAGER Patient has chronic kidney disease Care Plan Patient has chronic kidney disease No Dacia, Claudette, CUSTOMER EXPERIENCE MANAGER Patient has chronic kidney disease Care Plan Patient has chronic kidney disease No [place], Claudette, CUSTOMER EXPERIENCE MANAGER Patient has chronic kidney disease Care Plan Patient has chronic kidney disease No [place], Claudette, CUSTOMER EXPERIENCE MANAGER Patient has diabetic neuropathy Care Plan Patient has diabetic neuropathy No [place], Claudette, CUSTOMER EXPERIENCE MANAGER Patient has diabetic neuropathy Care Plan Patient has diabetic neuropathy No Dacia, Claudette, CUSTOMER EXPERIENCE MANAGER Patient has diabetic neuropathy Care Plan Patient has diabetic neuropathy No [place], Claudette, CUSTOMER EXPERIENCE MANAGER Weekly blood pressure task Care Plan Weekly blood pressure task No Phalen, Waleska, COMPOSITION ROOFER Weekly blood pressure task Care Plan Weekly blood pressure task No Phalen, Waleska, COMPOSITION ROOFER Weekly blood pressure task Care Plan Weekly blood pressure task No Phalen, Waleska, COMPOSITION ROOFER Patient has chronic kidney disease Care Plan Patient has chronic kidney disease No Phalen, Waleska, COMPOSITION ROOFER Patient has chronic kidney disease Care Plan Patient has chronic kidney disease No Phalen, Waleska, COMPOSITION ROOFER Patient has chronic kidney disease Care Plan Patient has chronic kidney disease No Phalen, Waleska, COMPOSITION ROOFER Patient has diabetic neuropathy Care Plan Patient has diabetic neuropathy No Phalen, Waleska, COMPOSITION ROOFER Patient has diabetic neuropathy Care Plan Patient has diabetic neuropathy No Phalen, Waleska, COMPOSITION ROOFER Patient has diabetic neuropathy Care Plan Patient has diabetic neuropathy No Phalen, Waleska, COMPOSITION ROOFER Weekly blood pressure task Care Plan Weekly [...] Care Plan Weekly blood pressure task No Murdock, Abhishek, RN Weekly blood pressure task Care Plan [...] Weekly blood pressure task No Phalarcelia Waleska, COMPOSITION ROOFER Weekly blood pressure task Care Plan Weekly blood pressure task No Phalen Waleska, COMPOSITION ROOFER Weekly blood pressure task Care Plan Weekly blood pressure task No Phalen Waleska, COMPOSITION ROOFER Patient has chronic kidney disease Care Plan Patient has chronic kidney disease No Phalen, Waleska, COMPOSITION ROOFER Patient has chronic kidney disease Care Plan Patient has chronic kidney disease No Phalen, Waleska, COMPOSITION ROOFER Patient has chronic kidney disease Care Plan Patient has chronic kidney disease No Phalen, Waleska, COMPOSITION ROOFER Patient has diabetic neuropathy Care Plan Patient has diabetic neuropathy No Phalen, Waleska, COMPOSITION ROOFER Patient has diabetic neuropathy Care Plan Patient has diabetic neuropathy No Phalen, Waleska, COMPOSITION ROOFER Patient has diabetic neuropathy Care Plan Patient has diabetic neuropathy No Phalen, Waleska, COMPOSITION ROOFER Weekly blood pressure task Care Plan Weekly blood pressure task No Dacia, Claudette, CUSTOMER EXPERIENCE MANAGER Weekly blood pressure task Care Plan Weekly blood pressure task No [place], Claudette, CUSTOMER EXPERIENCE MANAGER Weekly blood pressure task Care Plan Weekly blood pressure task No Dacia, Claudette, CUSTOMER EXPERIENCE MANAGER Patient has chronic kidney disease Care Plan Patient has chronic kidney disease No [place], Claudette, CUSTOMER EXPERIENCE MANAGER Patient has chronic kidney disease Care Plan Patient has chronic kidney disease No Dacia, Claudette, CUSTOMER EXPERIENCE MANAGER Patient has chronic kidney disease Care Plan Patient has chronic kidney disease No Dacia, Claudette, CUSTOMER EXPERIENCE MANAGER Patient has diabetic neuropathy Care Plan Patient has diabetic neuropathy No Dacia, Claudette, CUSTOMER EXPERIENCE MANAGER Patient has diabetic neuropathy Care Plan Patient has diabetic neuropathy No Dacia, Claudette, CUSTOMER EXPERIENCE MANAGER Patient has diabetic neuropathy Care Plan Patient has diabetic neuropathy No [place], Claudette, CUSTOMER EXPERIENCE MANAGER Weekly blood pressure task Care Plan [...] Plan Patient has diabetic neuropathy No West Rjoas PharmD Weekly blood pressure task Care Plan [...] documented as of this encounter Care Teams Csr Technician Relationship Specialty Start Date End Date Waleska Goldberg FNP [address] [place] [address] PCP - General Family Medicine 12/12/21 Abhishek Murdock, RN [address] [place] [address] Registered Nurse Family Medicine 03/08/25 Ben Wilkinson 03/08/25 Gloria Flores Education And Development ManagerWard Helper 03/13/23 documented as of this encounter
--- OUTSIDE RECORDS SUMMARY | 2025-04-05 15:54 | XMS_ITS | Encounter Summary ---
Author Organization [employer] Address [address] [facility] 7t [place] [address] Care Team Providers Care Skiver Counter Name Role Phone Waleska Goldberg Primary Care Provider [phone] Abhishek Murdock RN Unavailable [phone] Abhishek Murdock RN Unavailable [phone] Ben Wilkinson Unavailable Reason for Referral * Consultation (Routine) - Closed Specialty Diagnoses / Procedures Referred By Shayne rodriguez Referred To Contact Physical Therapy Diagnoses Fracture of left patella with routine healing Waleska Goldberg FNP [address] [place] [address] Phone: tel: fax: [facility] [address] [place], [place] Phone: tel: fax: Referral ID Status Reason Start Date Expiration Date V isits Requested Visits Authorized [id number] Closed Specialty Services Required 08/27/2024 08/27/2025 1 1 Encounter Details Date Type Department Care Team (Late st Contact Info) Description 08/25/[address] [facility] MEDICINE [address] [place] [address] Waleska Goldberg FNP [address] [place] [address] Social History Tobacco Use Types Packs/Day Years [...] - 08/25/2024 11:45 AM EDT Tc from [facility] requesting existing referral to be sent with updated date information for Physical Therapy - Diagnosis: Fracture of left patella with routine healing (S82.002D) [facility] [address] [facility] documented in this encounter Plan of Treatment Upcoming Encounters Date Type Department Care Team (Late st Contact Info) Description 06/02/2025 1:30 PM EST Office Visit [facility] ADULT DENTAL [address] [place] [address] Weston Phillips, DDS [address] [place] [address] 09/09/2025 9:30 AM EDT Office Visit [facility] OPTOMETRY [address] [place] [address] Ayesha Leal, OD [address] [place] [address] Scheduled Referrals Name Type Priority Associated Diagnoses [...] documented as of this encounter Care Teams Skiver Counter Relationship Specialty Start Date End Date Waleska Goldberg FNP [address] [place] [id number] PCP - General Family Medicine 12/12/21 Abhishek Murdock RN [address] [place] [address] Registered Nurse Family Medicine 12/20/24 01/07/25 Abhishek Murdock RN [address] [place] [address] Registered Nurse Family Medicine 03/08/25 Ben Wilkinson 03/08/25 Gloria Flores Physicist NuclearStudent Development Coordinator 03/13/23 documented as of this encounter
== END 2025-04-05 14:35 | disposition home or self-care (01) ==
LOC: HO.HMGCX 14:34
PROVIDERS: PCP Registered Nurse; Visit Provider Urology
DX: N20.0 Calculus of kidney (principal); N32.0 Bladder-neck obstruction
CPT/HCPCS: 76775

== ENCOUNTER → 2025-04-05 14:39 | Outpatient (BNV) | payer MEDICAID, SELFPAY | PROVIDERS: PCP Registered Nurse; Visit Provider Radiology Diagnostic Radiology | DX: N20.0 Calculus of kidney (principal) | CPT/HCPCS: 76775 ==